=== PATIENT | male | born 1940 | race Caucasian/White ===

== ENCOUNTER 2018-05-22 15:24 | Inpatient (IN) | payer MEDICARE, OTHER, SELFPAY ==
[2018-05-22] VITALS (11 sets, daily range): BP systolic 116–136; BP diastolic 53–99; PULSE 62–111; RESP 15–18; TEMP 36.7; O2SAT 95–98; BMI 28.3; BMI 27.1
--- NOTE | 2018-05-22 15:34 | EKG12_ITS ---
Test Reason : SYNCOPE Blood Pressure : / mmHG Vent. Rate : 108 BPM Atrial Rate : 108 BPM P-R Int : 000 ms QRS Dur : 094 ms QT Int : 320 ms P-R-T Axes : 000 -32 007 degrees QTc Int : 428 ms Accelerated Junctional rhythm with retrograde conduction Left axis deviation Minimal voltage criteria for LVH, may be normal variant Abnormal ECG Confirmed by ZULEIMA AMEZQUITA, SAKINA ([id number]), international editorial producer ANNALISE ESCALANTE ([id number]) on 05/28/2018 11:12:23 AM Referred By: CHLOE Confirmed By:SAKINA DEWEY MD
--- NOTE | 2018-05-22 15:37 | CT_ITS ---
STUDY: CT BRAIN WITHOUT CONTRAST REASON FOR EXAM: Male, 77 years old. Syncope RADIATION DOSAGE (If Supplied By Facility): CTDIvol = ( 44.99 ) mGy, DLP = ( 796.11 ) mGycm TECHNIQUE: Transaxial CT imaging of the brain was performed without administration of intravenous contrast material. Individualized dose optimization techniques were used for this CT. COMPARISON: None. FINDINGS: Normal soft tissue structures. Normal calvarium. Normal size ventricles and extra-axial spaces for the patient's age. Normal white matter tracts of the cerebral hemispheres. Normal basal ganglia and thalami. Normal brainstem. Normal cerebellum. There is no intracranial hemorrhage. There are no findings of an acute ischemic infarction. There is a polypoid defect of the left maxillary sinus. CT/Brain/Head without Contrast IMPRESSION: Polypoid defect of the left maxillary sinus consistent with a mucoid retention cyst. There is no evidence of intracranial hemorrhage, acute infarct, or calvarial fracture. Electronically Signed: Hardeep Hughes MD at 17:21 EST , Service support ,
--- NOTE | 2018-05-22 15:40 | ED.DCSUM_ITS ---
- ER Visit Summary Date of Service: 05/22/18 Chief Complaint: Syncope History of Present Illness: The patient is a 77 M presenting after syncopal episode. Patient denies chest pain or shortness of breath. He states he ate lunch and then became lightheaded. He had a syncopal episode. He did hit his head. He is not on anticoagulants. He was able to get up after the fall and ambulate. was concerned about rapid pulse. Denies other complaints. Physical Examination: Vitals are stable. HR 111. Patient is afebrile. Alert no acute distress. HEENT exam is unremarkable. Neck is nontender Lungs are clear and equal bilaterally. Heart is regular and tachycardic Abdomen is soft nontender nondistended. Extremities are unremarkable. Skin is warm and dry. No focal neurologic deficit. Remainder of exam is unremarkable. Emergency Department Course and Treatment: EKG is junctional tachycardia rate of 108. Chest x-ray shows no acute process. CT head shows no acute process. CBC, chemistries unremarkable other than BUN 29. Troponin is negative. Patient feels back to baseline. Will discuss with hospitalist for observation. Disposition: Observation Impression: Syncopal episode This note was generated with Verast[employer] dictation software. It may contain incorrect words, spelling, and punctuation that were not noted in review of the chart prior to signing ED Disposition - Plan for ED Patient: Referrals: Jeremiah Savage MD [Primary Care Provider] -
[2018-05-22 16:07] LABS: Absolute Lymphocyte Count 0.73 X10^3/ul (0.83-4.51); Absolute Neutrophil Count 5.2 X10^3/uL (2.0-7.7); Basophil# 0.02 X10^3/uL; Basophil% 0.3 % (0-1); Eosinophil# 0.05 X10^3/uL; Eosinophils% 0.8 % (0-5); Hematocrit 48.7 % (40-54); Hemoglobin 15.9 g/dl (13.0-16.5); Lymphocyte # 0.73 X10^3/ul (4.0); Lymphocyte % 11.2 % (19-41); Mean Corp Hgb Conc 32.6 g/gl (32-36); Mean Corpuscular Volume 85.7 fL (80-94); Mean Platelet Vol. 10.6 fl (6.2-12.0); Monocyte# 0.57 X10^3/uL; Monocyte% 8.7 % (0-10); Neutrophil # 5.15 X10^3/uL (2.7-7.7); Neutrophil % 78.7 % (47-70); Platelet Count 190 K/mm3 (150-450); RBC Distribution Width CV 13.7 % (11.6-14.6); RBC Distribution Width SD 42.9 fl (35.1-43.9); Red Blood Count 5.68 M/mm3 (4.6-6.2); White Blood Count 6.5 K/mm3 (4.4-11.0)
[2018-05-22 16:08] LABS: POSITIVE COUNT NO; POSITIVE DIFFERENTIAL NO; POSITIVE MORPHOLOGY NO
[2018-05-22 16:22] LABS: Anion Gap 10 (5-15); BUN 29 mg/dL (7-18); BUN/Creat Ratio 23.6 RATIO (10-20); Calcium,Total 9.1 mg/dL (8.5-10.1); Chloride 111 mmol/L (98-107); Creatinine, Serum 1.23 mg/dL (0.70-1.30); EST Glomerular Filtration Rate 60 mL/min (>60); Est Glom Filt Rate - Afr Amer 73 mL/min (>60); Glucose 107 mg/dL (74-106); Potassium 4.6 mmol/L (3.5-5.1); Sodium Level 145 mmol/L (136-145)
--- NOTE | 2018-05-22 17:00 | RAD_ITS ---
STUDY: X-RAY CHEST REASON FOR EXAM: Male, 77 years old. Syncopal episode TECHNIQUE: PA and lateral views of the chest. COMPARISON: None. FINDINGS: media monitor leads are present. The lungs are clear and expanded. There is no demonstrated pleural abnormality. Normal size heart. Normal mediastinum and noah. Normal visualized pulmonary arteries. Normal visualized aortic arch and descending thoracic aorta. There are diffuse degenerative changes of the visualized thoracic spine. Normal visualized ribs, clavicles, and shoulders. There is no demonstrated abnormality of the visualized soft tissue structures of the upper abdomen. RAD/Chest PA and Lateral IMPRESSION: Degenerative changes of the thoracic spine. No acute cardiopulmonary disease process is seen. Electronically Signed: Hardeep Hughes MD at 17:26 EST , Service support ,
--- NOTE | 2018-05-22 19:37 | HP.PCM_ITS ---
Problem List (1) Syncope and collapse Status: Acute (2) Hypertension Status: Chronic (3) Bronchitis Status: Resolved (4) Sinusitis Status: Resolved History of Present Illness Date of Admission: 05/22/18 Chief Complaint: Passed out today The patient is a 77 year old M fairly healthy gentleman with history of hypertension and dyslipidemia came to ED for syncope. 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 After lunch, he took a nap and then woke up. [place] funny, dizzy and lightheaded and then passed out and collapsed. Patient denies prodromal symptoms of headache, missed heartbeat, arrhythmia/chest pressure or shortness of breath, involuntary movements or seizure-like movement. Denies urinary or fecal incontinence. Syncope was unwitnessed and exact duration unknown. In ED, patient is asymptomatic. Basic workup done in ED is unremarkable. Vital signs are not baseline. EKG shows accelerated junctional rhythm at 108 bpm, LAD, mild LVH with retrograde P waves. CT head and chest x-ray does not show any acute change. [] Past Medical History Past Medical History (Chronic Problems): Chronic Problems (Last Updated 04/11/17 @ 11:30 by Michelle Townsend) Hypertension (Chronic) Medical History: Medical History (Last Updated 04/11/17 @ 11:30 by Michelle Townsend) Diabetes E11.9 Hx of fever Z87.898 HTN (hypertension) I10 Allergies No Known Allergies Allergy (Verified 05/22/18 15:28) Home Medications: Ambulatory Orders Medication Instructions Recorded aspirin 81 mg tablet,delayed 81 mg PO DAILY 04/11/17 release lisinopril 10 mg tablet 10 mg PO DAILY 04/11/17 hzwtefay-lhh-okqsc acid 300 1 tab PO DAILY 04/11/17 mcg-lycopene 600 mcg-lutein 300 mcg tablet Simvastatin 40 mg PO DAILY 05/22/18 Surgical History: Surgical History (Last Updated 04/11/17 @ 11:30 by Michelle Townsend) Hx of cholecystectomy Z98.890, Z90.49 Smoking Status: Never smoker - *Family History Paternal Family History: Family History (Last Updated 04/11/17 @ 11:30 by Michelle Townsend) Mother Diabetes CVA (cerebral vascular accident) Father Diabetes Heart disease History Items: No pertinent history Review of Systems Constitutional: Denies: Chills, Fever, Weight Change HEENT: Denies: Head Aches, Sinus Congestion, Sinus Drainage Cardiovascular: Reports: Syncope. Denies: Chest Pain, Palpitations Respiratory: Reports: - - Had flulike symptoms, sinus congestion about 3 weeks ago. Currently asymptomatic.. Denies: Cough, Shortness of breath at rest, Sputum production Gastrointestinal: Denies: Abdominal Pain, Nausea, Vomiting Genitourinary: Denies: Dysuria Musculoskeletal: Denies: Joint Pain, Joint Tenderness Skin: Denies: Rash, Wounds Neurological: Denies: Numbness, Tingling, Focal weakness Psychiatric: Denies: Anxiety, Depression, Homicidal Ideations, Suicidal Ideations Hematologic/ Lymphatic: Denies: Easy Bruising, Easy Bleeding VTE Information - Inpt Only VTE Present on Admission: No VTE Mechan Device Prophylaxis: None VTE Pharm Prophylaxis ordered?: Yes Patient Problems: Active and Suspected Problems (Last Updated 04/11/17 @ 11:30 by Michelle Townsend) Syncope and collapse (Acute) - Physical Exam General: Alert, Oriented x3, Cooperative HEENT: Atraumatic, PERRLA, EOMI, Normocephalic Oral: Dry Mucosa Neck: Supple, No JVD, Negative Carotid Bruits Lungs: Clear to auscultation, Normal air movement, No rhonchi, No wheeze, No rales Cardiovascular: Regular rate, Regular Rhythm, Normal S1, Normal S2, No murmurs Abdomen: Bowel Sounds Present, Soft, Non Tender, Non-Distended Extremities: No edema, Capillary Refill Less than 3 Seconds Skin: No rashes, No breakdown Musculoskeletal: No Tenderness to Palpation of Joints or Extremities, Arthritic Changes Lymphatic: No Cervical, Supraclavicular, or Inguinal Adenopathy Neurological: Cranial nerves II-XII grossly intact, Deep Tendon Reflexes 2+/4 and Symmetrical, Neuro grossly intact, Motor Exam 5/5 strength throughout Psych/Mental Status: Normal Affect, Appropriate Vital Signs Temp Pulse Resp BP Pulse Ox 98.1 F 63 16 122/72 H 96 05/22/18 15:25 05/22/18 19:00 05/22/18 19:00 05/22/18 19:00 05/22/18 19:27 Oxygen Delivery Method Room Air Weight: 191 lb 9.307 oz Body Mass Index (BMI) 28.3 Laboratory Tests Past 24 Hrs 05/22/18 05/22/18 16:00 16:00 WBC 6.5 RBC 5.68 Hgb 15.9 Hct 48.7 MCV 85.7 MCH 28.0 MCHC 32.6 RDW 13.7 RDW Differential 42.9 Plt Count 190 MPV 10.6 Immature Gran % (Auto) 0.300 Neut % (Auto) 78.7 H Lymph % (Auto) 11.2 L Potter % (Auto) 8.7 Eos % (Auto) 0.8 Baso % (Auto) 0.3 Absolute Neuts (auto) 5.2 Absolute Lymphs (auto) 0.73 L Total Counted Not Reportable Sodium 145 Potassium 4.6 Chloride 111 H Carbon Dioxide 24.0 Anion Gap 10 BUN 29 H Creatinine 1.23 Estim Creat Clear Calc 49.50 Est GFR (MDRD) Af Amer 73 Est GFR (MDRD) Non-Af 60 BUN/Creatinine Ratio 23.6 H Glucose 107 H Calcium 9.1 Troponin I < 0.015 Assessment/Plan All Active Problems (Last Updated 04/11/17 @ 11:30 by Michelle Townsend) Syncope and collapse (Acute) Bronchitis (Resolved) Sinusitis (Resolved) The patient is a 77 year old M fairly healthy gentleman with history of hypertension and dyslipidemia came to ED for syncope. 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 After lunch, he took a nap and then woke up. [place] funny, dizzy and lightheaded and then passed out and collapsed. Patient denies prodromal symptoms of headache, missed heartbeat, arrhythmia/chest pressure or shortness of breath, involuntary movements or seizure-like movement. Denies urinary or fecal incontinence. Syncope was unwitnessed and exact duration unknown. In ED, patient is asymptomatic. Basic workup done in ED is unremarkable. Vital signs are not baseline. EKG shows accelerated junctional rhythm at 108 bpm, LAD, mild LVH with retrograde P waves. CT head and chest x-ray does not show any acute change. 1. Syncope and collapse, exact etiology unclear but possible hypotension/vasov agal syncope: Patient is being admitted on PCU. Cardiac monitoring. Cycle troponins. Repeat EKG after 3 hours. 2D echo and carotid Doppler tomorrow morning. Orthostatic blood pressure. IV fluid normal saline at 100 mL/h. Patient denies cardiac history including coronary artery disease, arrhythmia, CHF or significant valvular heart disease. Denies neurological disease including seizure or migraine. 2. Hypertension: Blood pressure is controlled continue lisinopril. If patient has positive orthostatics, discontinue lisinopril. 3. Dyslipidemia: Continue home medication. 4. DVT prophylaxis: On Lovenox 40 g subcu daily. Clinical Impression(s) from Imaging Studies Brain CT 05/22/18 15:37 IMPRESSION: Polypoid defect of the left maxillary sinus consistent with a mucoid retention cyst. There is no evidence of intracranial hemorrhage, acute infarct, or calvarial fracture. Chest X-Ray 05/22/18 17:00 IMPRESSION: Degenerative changes of the thoracic spine. No acute cardiopulmonary disease process is seen. Code Visit OBSV E&M: 58457 Initial observation care L3
[2018-05-22] MEDS: 0.9% Normal Saline 1,000 ML 100 ML IV (20:58)
[2018-05-22] MEDS: Atorvastatin Calcium 20 MG Tablet PO (21:58)
--- NOTE | 2018-05-22 22:00 | EKG12_ITS ---
Test Reason : ADMIT Blood Pressure : / mmHG Vent. Rate : 067 BPM Atrial Rate : 067 BPM P-R Int : 286 ms QRS Dur : 098 ms QT Int : 414 ms P-R-T Axes : 028 -35 002 degrees QTc Int : 437 ms Sinus rhythm with 1st degree A-V block Left axis deviation Moderate voltage criteria for LVH, may be normal variant Abnormal ECG When compared with ECG of 22-MAY-2018 15:32, MANUAL COMPARISON REQUIRED, DATA IS UNCONFIRMED Confirmed by ZULEIMA AMEZQUITA, SAKINA ([id number]), editor in chief ANNALISE ESCALANTE ([id number]) on 05/24/2018 9:17:06 AM Referred By: ISHA Confirmed By:SAKINA DEWEY MD
[2018-05-23] VITALS (13 sets, daily range): BP systolic 113–153; BP diastolic 52–76; PULSE 50–65; RESP 16–20; TEMP 36.5–37.2; O2SAT 96–97
[2018-05-23] MEDS: Enoxaparin 40 MG/0.4 ML Syringe SC (05:55)
--- NOTE | 2018-05-23 05:55 | ECHOCS_ITS ---
Reason For Study: Syncope Procedure This was a 2D Doppler, Color Flow transthoracic echocardiogram. Exam performed portable in patient room. Left Ventricle Normal size and thickness. The estimated ejection fraction is 65 %. Stage 1 diastolic dysfunction. No regional wall motion abnormalities noted. Right Ventricle Normal size and thickness. Normal systolic function. Atria Normal left atrium. Normal right atrium. Normal atrial septum. Mitral Valve The mitral valve is structurally normal. No prolapse or stenosis seen. Tricuspid Valve Normal tricuspid valve. Trivial tricuspid valve insufficiency. Right ventricular systolic pressure estimated to be 24 mmHg. Aortic Valve Trisinus/trileaflet aortic valve. Normal aortic valve. Pulmonic Valve Normal pulmonic valve. Great Vessels Normal aortic root. Normal arch. Normal inferior vena cava. Inferior vena cava collapse with sniff. Pericardium/Pleural No pericardial effusion. Medication Diluted definity 2ml given slow IV push to enhance endocardial definition. MMode/2D Measurements & Calculations LVIDd: 4.1 cm IVSd: 1.7 cm Ao root diam: 4.0 cm LVIDs: 2.2 cm LVPWd: 1.2 cm LA dimension: 3.7 cm FS: 47.7 % LAV(MOD-sp4): 45.0 ml LA A4 area: 17.7 cm2 RA A4 area: 11.5 cm2 Time Measurements MV dec time: 0.33 sec Doppler Measurements & Calculations MV E max dylan: 80.1 cm/sec Lat Peak E' Dylan: 8.3 cm/sec Med Peak E' Dylan: 5.7 cm/sec MV A max dylan: 106.0 cm/sec E/E' lat: 9.6 E/E' med: 14.1 MV E/A: 0.76 MV V2 max: 111.7 cm/sec MV P1/2t max dylan: 94.4 cm/sec Ao V2 max: 132.9 cm/sec MV max P.0 mmHg MV P1/2t: 81.4 msec Ao max P.1 mmHg MV V2 mean: 67.1 cm/sec MV dec slope: 339.8 cm/sec2 MV mean P.0 mmHg MV V2 VTI: 33.8 cm MVA(P1/2t): 2.7 cm2 LV V1 max: 111.8 cm/sec PA V2 max: 104.0 cm/sec TR max dylan: 220.0 cm/sec LV V1 max P.0 mmHg TR max P.4 mmHg Interpretation Summary The estimated ejection fraction is 65 %. Stage 1 diastolic dysfunction. Trivial tricuspid valve insufficiency. Right ventricular systolic pressure estimated to be 24 mmHg. There is no comparison study available. The study was technically difficult. Contrast injection was performed. Ordering Physician: Austin Acosta Performed By: Kai Ray RCS
--- NOTE | 2018-05-23 05:55 | CDU_ITS ---
Reason For Study: syncope Rt. Velocities/BP Lt. Velocities/BP Prox CCA 84.4/14.1 cm/sec. Prox CCA 114/21.2 cm/sec. Mid CCA 99.7/14.1 cm/sec. Mid CCA 104/20.4 cm/sec. Dist CCA 87.9/14.7 cm/sec. Dist CCA 96.6/17.3 cm/sec. Prox ICA 91.9/16.5 cm/sec. Prox ICA 78.6/20.4 cm/sec. Mid ICA 86.4/21.2 cm/sec. Mid ICA 88.0/24.4 cm/sec. Dist ICA 90.4/22.8 cm/sec. Dist ICA 120/29.9 cm/sec. Rt. ICA/CCA = .9. Lt. ICA/CCA = 1.2. Prox ECA 151/15.7 cm/sec. Prox ECA 123/10.2 cm/sec. Rt. Vert. 50.4/8.21 cm/sec. Lt. Vert. 51.6/13.5 cm/sec. Right Extracranial There is intimal thickening but no significant atherosclerotic plaque noted in the right common carotid artery. There is homogeneous, smooth atherosclerotic plaque noted in the right internal carotid artery. There is intimal thickening but no significant atherosclerotic plaque noted in the right external carotid artery. Antegrade flow is noted in the right vertebral artery. Left Extracranial There is intimal thickening but no significant atherosclerotic plaque noted in the left common carotid artery. There is intimal thickening but no significant atherosclerotic plaque noted in the left internal carotid artery. The left internal carotid artery is very tortuous. There is intimal thickening but no significant atherosclerotic plaque noted in the left external carotid artery. Antegrade flow is noted in the left vertebral artery. Procedure Carotid Duplex 09043. The exam was diagnostic. Exam performed in department. Interpretation Summary No hemodynamically significant plague or stenosis bilateral extracranial internal carotid arteries with <50% stenosis bilaterally. <50% stenosis bilateral external carotids Patent and antegrade bilateral vertebrals Ordering Physician: Austin Acosta Referring Physician: MD Jeremiah Savage Performed By: Anibal Hood RVT
[2018-05-23] MEDS: 0.9% Normal Saline 1,000 ML 100 ML IV (05:57)
[2018-05-23 06:32] LABS: Thyroid Stim Hormone (TSH) 2.22 uIU/mL (0.358-3.74)
--- NOTE | 2018-05-23 08:34 | PCM.PROGNOTE ---
Subjective: The patient is a 77-year-old male with a past medical history of hypertension, diet-controlled diabetes mellitus type 2 and dyslipidemia who presented to the emergency department at [facility] on 05/22/2018 after having a unwitnessed syncopal episode. He stood up and started to feel lightheaded and then vision got blurry and he passed out. When he awoke he was alert and felt fine....his made him come to the hospital. He is still working at the age of 77. Vital signs of presentation to the emergency room were temperature 98.1, pulse rate 111, blood pressure 134/76, respiratory rate 16 and he was 97% saturated on room air. CBC was unremarkable. Sodium was 145 and the chloride was 111. The BUN was 29 with a creatinine of 1.23 and we have no baseline on this gentleman. Troponin was less than 0.015. Magnesium was normal at 2. EKG at admission showed accelerated junctional rhythm with no suspicious ST or T wave changes. Follow-up EKG shows P waves however the WV interval is almost 450 ms. Pulse is now in the 60s. CT brain showed no acute findings. Chest x-ray showed no infiltrates, pleural effusions or pulmonary vascular congestion. He was admitted to a monitored bed on PCU and serial cardiac enzymes were obtained and were not negative. A surface echocardiogram was obtained and showed an ejection fraction of 65% with stage I diastolic dysfunction. There was trivial TR and the right ventricular systolic pressure was estimated to be 24 which is normal. All events of the past 24 hours of been reviewed. Heart rate has ranged from 60 currently to 111 at admission. Pulse ox is 95-97% on room air and blood pressures are stable. All lab was personally reviewed. The TSH is 2.22. He is on no medications that would cause a heart block Denies lightheadedness, chest pain, shortness of breath. He does tell me that in the summer he gets lightheaded and he attributes this to dehydration. This is his first syncopal episode. He has never had a stress test but there is a very strong history of coronary artery disease in the family. - Physical Exam General: Alert, Oriented x3, Cooperative, No apparent distress, Well developed, Well nourished HEENT: Atraumatic, PERRLA, EOMI, Normocephalic Oral: Moist Mucosa, No Gingival or Mucosal Lesions/ Ulcerations Neck: Supple, No JVD, Negative Carotid Bruits, No Nodes, No Nuchal Rigidity, Trachea Midline Lungs: Clear to auscultation, Normal air movement Cardiovascular: Regular rate, Regular Rhythm, Normal S1, Normal S2, No murmurs, No Ectopic Activity, No rub noted, No Gallop Abdomen: Bowel Sounds Present, Soft, Non Tender, Non-Distended, - - No abdominal bruits Extremities: No clubbing, No cyanosis, No edema, No Calf Tenderness, - - Dorsalis pedis pulses are diminished bilaterally but the posterior tibial pulses are 3/3. Popliteal pulses are 3/3. Skin: No rashes, No breakdown Neurological: Cranial nerves II-XII grossly intact, Neuro grossly intact Psych/Mental Status: Normal Affect, Appropriate Vital Signs Temp Pulse Resp BP Pulse Ox 97.7 F L 60 18 131/62 H 96 05/23/18 05:46 05/23/18 07:11 05/23/18 05:46 05/23/18 05:49 05/23/18 05:46 Oxygen Delivery Method Room Air Weight: 189 lb Body Mass Index (BMI) 27.1 Orthostatic Vital Signs Start: 05/22/18 22:33 Freq: q24h Status: Active Protocol: Activity Type Activity Date Activity User E-Sign Co-Sign Detail Recorded Client Recorded Date Recorded By Document 05/23/18 05:49 [id number] 05/23/18 05:55 JM8 05/23/18 05:49 Orthostatic Vitals Standing -Blood Pressure (90/60-120/80 mm Hg) 121/52 H -Extremity Use Right Arm -Pulse Rate (60-100 beats/min) 57 L Sitting -Blood Pressure (90/60-120/80 mm Hg) 128/62 H -Extremity Use Right Arm -Pulse Rate (60-100 beats/min) 65 Lying -Blood Pressure (90/60-120/80 mm Hg) 131/62 H -Extremity Use Right Arm -Pulse Rate (60-100 beats/min) 62 Intake and Output for Last 24 Hours 05/21/18 05/22/18 05/23/18 23:59 23:59 23:59 Intake Total 371 / 371 855 / 855 Balance 371 / 371 855 / 855 Laboratory Tests Past 24 Hrs 05/22/18 05/22/18 05/22/18 16:00 16:00 16:00 WBC 6.5 RBC 5.68 Hgb 15.9 Hct 48.7 MCV 85.7 MCH 28.0 MCHC 32.6 RDW 13.7 RDW Differential 42.9 Plt Count 190 MPV 10.6 Immature Gran % (Auto) 0.300 Neut % (Auto) 78.7 H Lymph % (Auto) 11.2 L Glenn % (Auto) 8.7 Eos % (Auto) 0.8 Baso % (Auto) 0.3 Absolute Neuts (auto) 5.2 Absolute Lymphs (auto) 0.73 L Total Counted Not Reportable Sodium 145 Potassium 4.6 Chloride 111 H Carbon Dioxide 24.0 Anion Gap 10 BUN 29 H Creatinine 1.23 Estim Creat Clear Calc 49.50 Est GFR (MDRD) Af Amer 73 Est GFR (MDRD) Non-Af 60 BUN/Creatinine Ratio 23.6 H Glucose 107 H Calcium 9.1 Magnesium 2.0 Troponin I < 0.015 TSH 05/23/18 05/23/18 03:10 05:45 WBC RBC Hgb Hct MCV MCH MCHC RDW RDW Differential Plt Count MPV Immature Gran % (Auto) Neut % (Auto) Lymph % (Auto) Glenn % (Auto) Eos % (Auto) Baso % (Auto) Absolute Neuts (auto) Absolute Lymphs (auto) Total Counted Sodium Potassium Chloride Carbon Dioxide Anion Gap BUN Creatinine Estim Creat Clear Calc Est GFR (MDRD) Af Amer Est GFR (MDRD) Non-Af BUN/Creatinine Ratio Glucose Calcium Magnesium Troponin I 0.018 < 0.015 TSH 2.22 Medical Necessity - Tobacco Use Smoking Status: Never smoker Assessment/Plan All Active Problems (Last Updated 04/11/17 @ 11:30 by Michelle Townsend) First degree AV block (Acute) Accelerated junctional rhythm (Acute) Syncope and collapse (Acute) Bronchitis (Resolved) Sinusitis (Resolved) Impressions 1. syncope - unwitnessed 2. accelerated junctional rhythm, first-degree AV block 3. Hypertension 4. Diet-controlled diabetes mellitus 5. Dyslipidemia-controlled 6. Stage III chronic renal failure 7. Stage I diastolic dysfunction Consult Dr. Garcia Lipid panel, CMP in the a.m. Stress test in the a.m. Code Visit Inpatient E&M: 61159 Subs Hosp L2
[2018-05-23] MEDS: Aspirin E.C. 81 MG Tablet PO (08:49)
[2018-05-23] MEDS: Lisinopril 10 MG Tablet PO (08:49)
[2018-05-23] MEDS: Multivitamins,Ther W-Minerals Tablet 1 TABLET PO (08:49)
--- NOTE | 2018-05-23 09:29 | CASEMGMT ---
Per admission assessment patient has Healthcare POA and Healthcare LW. He is aware they are not on file at [facility]. His Healthcare POA is his Suzanne. Gabrielle RAO MSW
--- NOTE | 2018-05-23 11:06 | EKGRS_ITS ---
Test Reason : RHYTHM Blood Pressure : / mmHG Vent. Rate : 059 BPM Atrial Rate : 059 BPM P-R Int : 434 ms QRS Dur : 096 ms QT Int : 430 ms P-R-T Axes : 023 -36 -10 degrees QTc Int : 425 ms Sinus bradycardia with 1st degree A-V block Left axis deviation Voltage criteria for left ventricular hypertrophy Abnormal ECG Confirmed by ZULEIMA AMEZQUITA, SAKINA ([id number]), marketing editor ANNALISE ESCALANTE ([id number]) on 05/24/2018 9:51:28 AM Referred By: ISHA Confirmed By:SAKINA DEWEY MD
--- NOTE | 2018-05-23 11:07 | NURSING ---
Respiratory therapist called at this time and notified of need for an EKG
--- NOTE | 2018-05-23 12:53 | PCM.CONS.C ---
Reason for Consult Date of Consultation: 05/23/18 Reason for Consultation: Syncopal episode History of Present Illness: The patient is a 77 year old M [with no previous cardiac history who presented to the emergency room yesterday after experiencing a syncopal episode. He thinks that he had had an average sort of day and then had an episode where he thought his heart was racing briefly he got up and then he passed out. It was apparently transient. He was brought to the emergency room and evaluated. In the emergency room he was noted to be in an accelerated junctional rhythm with a rate of approximately 108 bpm with what appeared to be retrograde conduction. A subsequent EKG performed demonstrated sinus rhythm with a first-degree AV block with a rate of 67 bpm and a WA interval of 286 ms. An echocardiogram was performed which demonstrated preserved ejection fraction of 65%. A subsequent EKG performed this morning demonstrated sinus rhythm with a rate of 59 bpm and a first-degree AV block with a WA interval of 430 ms. He says that he has had periods of dizziness in the past but no german syncopal episodes. He has had no neck arm or jaw discomfort suggest angina. He has been compliant with all his medications.] Past Medical History Allergies/Adverse Reactions: Allergies No Known Allergies Allergy (Verified 05/22/18 15:28) Home Medications: Ambulatory Orders Medication Instructions Recorded aspirin 81 mg tablet,delayed 81 mg PO DAILY 04/11/17 release lisinopril 10 mg tablet 10 mg PO DAILY 04/11/17 vfunzxqv-ugt-lfims acid 300 1 tab PO DAILY 04/11/17 mcg-lycopene 600 mcg-lutein 300 mcg tablet Simvastatin 40 mg PO DAILY 05/22/18 Past Medical History (Chronic Problems): Chronic Problems (Last Updated 04/11/17 @ 11:30 by Michelle Townsend) Hypertension (Chronic) - *Family History Paternal Family History: Family History (Last Updated 04/11/17 @ 11:30 by Michelle Townsend) Mother Diabetes CVA (cerebral vascular accident) Father Diabetes Heart disease History Items: No pertinent history Smoking Status: Never smoker Alcohol: None Drugs: None Review of Systems - Review of Systems General: Denies: Fever, Night Sweats, Fatigue HEENT: Denies: Vision Change Cardiovascular: Reports: Dizziness, Near Syncope, Syncope. Denies: Chest Discomfort, Shortness of Breath, Orthopnea, PND, Peripheral Edema, Palpitations, Lightheadedness Respiratory: Denies: Cough, Sputum Production, Hemoptysis Gastrointestinal: Denies: Indigestion, Hematemesis, Hematochezia, Melena Genitourinary: Denies: Dysuria, Hematuria Muscoloskeletal: Denies: Myalgias Skin: Denies: Rash Neurological: Denies: Dizziness Psychiatric: Denies: Anxiety Endocrine: Denies: Excessive Sweating Hematologic/ Lymphatic: Denies: Anemia Subjectve: Pleasant gentleman in no apparent distress Objective: Vital Signs Temp Pulse Resp BP Pulse Ox 98.6 F 60 16 126/76 H 96 05/23/18 09:15 05/23/18 10:58 05/23/18 09:15 05/23/18 09:15 05/23/18 09:15 Oxygen Delivery Method Room Air Weight: 189 lb Body Mass Index (BMI) 27.1 Orthostatic Vital Signs Start: 05/22/18 22:33 Freq: q24h Status: Active Protocol: Activity Type Activity Date Activity User E-Sign Co-Sign Detail Recorded Client Recorded Date Recorded By Document 05/23/18 05:49 [id number] 05/23/18 05:55 [email or web address] 05/23/18 05:49 Orthostatic Vitals Standing -Blood Pressure (90/60-120/80) 121/52 H -Extremity Use Right Arm -Pulse Rate (60-100) 57 L Sitting -Blood Pressure (90/60-120/80) 128/62 H -Extremity Use Right Arm -Pulse Rate (60-100) 65 Lying -Blood Pressure (90/60-120/80) 131/62 H -Extremity Use Right Arm -Pulse Rate (60-100) 62 Intake and Output for Last 24 Hours 05/21/18 05/22/18 05/23/18 23:59 23:59 23:59 Intake Total 371 / 371 2000 Balance 371 / 371 2000 General: Awake, Alert, Oriented x 3 HEENT: PERRL, EOMI, Sclera Non Icteric Neck: Supple, Good ROM, No Lymph Node Enlargement Lungs: Clear to auscultation Cardiovascular: Regular Rhythm, Normal S1, Normal S2, No Murmurs, No Rubs, No Gallops Vascular: No Carotid Bruits, Normal Femoral Pulses, Normal Radial Pulses, Normal Dorsalis Pedal Pulse, Normal Posterior Tibial Pulses Abdomen: Bowel Sounds Present, Soft, Non Tender, No HSM, No Organomegaly Extremities: No Cyanosis, No Clubbing, No edema Musculoskeletal: No Erythema Skin: No Rashes Neurological: No Focal Motor or Sensory Deficit Psych/Mental Status: Appropriate 05/22/18 16:00: WBC 6.5, RBC 5.68, Hgb 15.9, Hct 48.7, MCV 85.7, MCH 28.0, MCHC 32.6, RDW 13.7, RDW Differential 42.9, Plt Count 190, MPV 10.6, Immature Gran % (Auto) 0.300, Neut % (Auto) 78.7 H, Lymph % (Auto) 11.2 L, [place] % (Auto) 8.7, Eos % (Auto) 0.8, Baso % (Auto) 0.3, Absolute Neuts (auto) 5.2, Total Counted Not Reportable 05/22/18 16:00: Sodium 145, Potassium 4.6, Chloride 111 H, Carbon Dioxide 24.0, Anion Gap 10, BUN 29 H, Creatinine 1.23, Est GFR (MDRD) Af Amer 73, Est GFR (MDRD) Non-Af 60, BUN/Creatinine Ratio 23.6 H, Glucose 107 H, Calcium 9.1, Troponin I < 0.015 05/22/18 16:00: Magnesium 2.0 05/23/18 03:10: Troponin I 0.018 05/23/18 05:45: Troponin I < 0.015 Rhythm: EKG: As described above ECHO: Preserved left ventricular ejection fraction estimated 65% Assessment/Plan 1. Syncope The etiology of the above is unclear to me at this time but it appears that he may have a sick sinus syndrome. I do not think this is secondary to medication or an electrolyte problem. My recommendation at this time will be for us to continue to monitor him via telemetry and then obtain an exercise stress test to see what his conduction system is like. If the above is noted to be normal I may recommend an outpatient event monitor or even an implantable loop recorder. I have discussed the above with the patient and his and the physician and they understand and agreed to proceed. Further recommendations will be made depending on the results of tomorrow's stress test. Thank you for allowing me to participate in the care of your patient. Please don't hesitate to call if any issues arise
--- NOTE | 2018-05-23 12:57 | CON.PCM_ITS ---
Reason for Consult Date of Consultation: 05/23/18 Reason for Consultation: Syncopal episode History of Present Illness: The patient is a 77 year old M [with no previous cardiac history who presented to the emergency room yesterday after experiencing a syncopal episode. He thinks that he had had an average sort of day and then had an episode where he thought his heart was racing briefly he got up and then he passed out. It was apparently transient. He was brought to the emergency room and evaluated. In the emergency room he was noted to be in an accelerated junctional rhythm with a rate of approximately 108 bpm with what appeared to be retrograde conduction. A subsequent EKG performed demonstrated sinus rhythm with a first-degree AV block with a rate of 67 bpm and a SD interval of 286 ms. An echocardiogram was performed which demonstrated preserved ejection fraction of 65%. A subsequent EKG performed this morning demonstrated sinus rhythm with a rate of 59 bpm and a first-degree AV block with a SD interval of 430 ms. He says that he has had periods of dizziness in the past but no german syncopal episodes. He has had no neck arm or jaw discomfort suggest angina. He has been compliant with all his medications.] Past Medical History Allergies/Adverse Reactions: Allergies No Known Allergies Allergy (Verified 05/22/18 15:28) Home Medications: Ambulatory Orders Medication Instructions Recorded aspirin 81 mg tablet,delayed 81 mg PO DAILY 04/11/17 release lisinopril 10 mg tablet 10 mg PO DAILY 04/11/17 ccjpmetu-orc-cglpq acid 300 1 tab PO DAILY 04/11/17 mcg-lycopene 600 mcg-lutein 300 mcg tablet Simvastatin 40 mg PO DAILY 05/22/18 Past Medical History (Chronic Problems): Chronic Problems (Last Updated 04/11/17 @ 11:30 by Michelle Townsend) Hypertension (Chronic) - *Family History Paternal Family History: Family History (Last Updated 04/11/17 @ 11:30 by Michelle Townsend) Mother Diabetes CVA (cerebral vascular accident) Father Diabetes Heart disease History Items: No pertinent history Smoking Status: Never smoker Alcohol: None Drugs: None Review of Systems - Review of Systems General: Denies: Fever, Night Sweats, Fatigue HEENT: Denies: Vision Change Cardiovascular: Reports: Dizziness, Near Syncope, Syncope. Denies: Chest Discomfort, Shortness of Breath, Orthopnea, PND, Peripheral Edema, Palpitations, Lightheadedness Respiratory: Denies: Cough, Sputum Production, Hemoptysis Gastrointestinal: Denies: Indigestion, Hematemesis, Hematochezia, Melena Genitourinary: Denies: Dysuria, Hematuria Muscoloskeletal: Denies: Myalgias Skin: Denies: Rash Neurological: Denies: Dizziness Psychiatric: Denies: Anxiety Endocrine: Denies: Excessive Sweating Hematologic/ Lymphatic: Denies: Anemia Subjectve: Pleasant gentleman in no apparent distress Objective: Vital Signs Temp Pulse Resp BP Pulse Ox 98.6 F 60 16 126/76 H 96 05/23/18 09:15 05/23/18 10:58 05/23/18 09:15 05/23/18 09:15 05/23/18 09:15 Oxygen Delivery Method Room Air Weight: 189 lb Body Mass Index (BMI) 27.1 Orthostatic Vital Signs Start: 05/22/18 22:33 Freq: q24h Status: Active Protocol: Activity Type Activity Date Activity User E-Sign Co-Sign Detail Recorded Client Recorded Date Recorded By Document 05/23/18 05:49 [id number] 05/23/18 05:55 JM8 05/23/18 05:49 Orthostatic Vitals Standing -Blood Pressure (90/60-120/80) 121/52 H -Extremity Use Right Arm -Pulse Rate (60-100) 57 L Sitting -Blood Pressure (90/60-120/80) 128/62 H -Extremity Use Right Arm -Pulse Rate (60-100) 65 Lying -Blood Pressure (90/60-120/80) 131/62 H -Extremity Use Right Arm -Pulse Rate (60-100) 62 Intake and Output for Last 24 Hours 05/21/18 05/22/18 05/23/18 23:59 23:59 23:59 Intake Total 371 / 371 2000 Balance 371 / 371 2000 General: Awake, Alert, Oriented x 3 HEENT: PERRL, EOMI, Sclera Non Icteric Neck: Supple, Good ROM, No Lymph Node Enlargement Lungs: Clear to auscultation Cardiovascular: Regular Rhythm, Normal S1, Normal S2, No Murmurs, No Rubs, No Gallops Vascular: No Carotid Bruits, Normal Femoral Pulses, Normal Radial Pulses, Normal Dorsalis Pedal Pulse, Normal Posterior Tibial Pulses Abdomen: Bowel Sounds Present, Soft, Non Tender, No HSM, No Organomegaly Extremities: No Cyanosis, No Clubbing, No edema Musculoskeletal: No Erythema Skin: No Rashes Neurological: No Focal Motor or Sensory Deficit Psych/Mental Status: Appropriate 05/22/18 16:00: WBC 6.5, RBC 5.68, Hgb 15.9, Hct 48.7, MCV 85.7, MCH 28.0, MCHC 32.6, RDW 13.7, RDW Differential 42.9, Plt Count 190, MPV 10.6, Immature Gran % (Auto) 0.300, Neut % (Auto) 78.7 H, Lymph % (Auto) 11.2 L, [place] % (Auto) 8.7, Eos % (Auto) 0.8, Baso % (Auto) 0.3, Absolute Neuts (auto) 5.2, Total Counted Not Reportable 05/22/18 16:00: Sodium 145, Potassium 4.6, Chloride 111 H, Carbon Dioxide 24.0, Anion Gap 10, BUN 29 H, Creatinine 1.23, Est GFR (MDRD) Af Amer 73, Est GFR (MDRD) Non-Af 60, BUN/Creatinine Ratio 23.6 H, Glucose 107 H, Calcium 9.1, Troponin I < 0.015 05/22/18 16:00: Magnesium 2.0 05/23/18 03:10: Troponin I 0.018 05/23/18 05:45: Troponin I < 0.015 Rhythm: EKG: As described above ECHO: Preserved left ventricular ejection fraction estimated 65% Assessment/Plan * 1. Syncope The etiology of the above is unclear to me at this time but it appears that he may have a sick sinus syndrome. I do not think this is secondary to medication or an electrolyte problem. My recommendation at this time will be for us to continue to monitor him via telemetry and then obtain an exercise stress test to see what his conduction system is like. If the above is noted to be normal I may recommend an outpatient event monitor or even an implantable loop recorder. I have discussed the above with the patient and his and the physician and they understand and agreed to proceed. Further recommendations will be made depending on the results of tomorrow's stress test. Thank you for allowing me to participate in the care of your patient. Please don't hesitate to call if any issues arise
--- NOTE | 2018-05-23 14:04 | CASEMGMT ---
ROSY SPENCER assessment: Face to Face with patient for initial transition planning/care coordination assessment. ROSY SPENCER introduced self and role at [facility], pt voices understanding and consents to assessment at this time. Pt is sitting up in bed in no distress at this time. Pt is A/Ox4 at this time and answers all questions appropriately at this time. Pt's is at bedside during assessment. Care providers, pharmacy, and demographics verified/updated at this time. PCP: Janette Specialists: Pt states currently has no specialists. Preferred Pharmacy: [facility] [place] mail [facility] Insurance: MCR A/B, [employer] Prescription Benefit: [place] Living Will/HPOA: Pt states he has a LW/HPOA but is aware that they are not currently on file at [facility]. Pt's states that she will bring copies in later today. Pt states his , Suzanne Pink, is HPOA. LNOK: Suzanne Pink, ; Carroll Blount, daughter Living Arrangements: Pt states lives with in 1 story home and states no concerns at home at this time. Pt states is normally independent with ADL's. Transportation: Pt states drives self and states no transportation concerns at this time. DME/HHC: Pt states no current DME or need for any at this time. Pt states no hx of HHC or SNF in the past. Pt states no concerns with going home at time of discharge. Pt states is retired. Pt states does not smoke or drink ETOH. Pt states no further questions/concerns/needs at this time. CM to follow for any further discharge planning/needs. Advised pt to ask for CM if any further questions/concerns/needs arise, voices understanding. Plan: [place] ROSY SPENCER
[2018-05-23] MEDS: Atorvastatin Calcium 20 MG Tablet PO (20:57)
[2018-05-24] VITALS (7 sets, daily range): BP systolic 138–156; BP diastolic 63–84; PULSE 50–65; RESP 18; TEMP 36.7–36.8; O2SAT 96–99
[2018-05-24 04:59] LABS: Hematocrit 43.5 % (40-54); Hemoglobin 14.1 g/dl (13.0-16.5); Mean Corp Hgb Conc 32.4 g/gl (32-36); Mean Corpuscular Hgb 28.4 pg (27.0-32.0); Mean Corpuscular Volume 87.5 fL (80-94); Mean Platelet Vol. 10.3 fl (6.2-12.0); Platelet Count 156 K/mm3 (150-450); RBC Distribution Width CV 13.6 % (11.6-14.6); RBC Distribution Width SD 43.2 fl (35.1-43.9); Red Blood Count 4.97 M/mm3 (4.6-6.2); White Blood Count 4.2 K/mm3 (4.4-11.0)
[2018-05-24 05:00] LABS: Scan Indicated on CBC? Y/N NO
--- NOTE | 2018-05-24 05:00 | EKG12_ITS ---
Test Reason : AM EKG Blood Pressure : / mmHG Vent. Rate : 055 BPM Atrial Rate : 055 BPM P-R Int : 392 ms QRS Dur : 096 ms QT Int : 436 ms P-R-T Axes : 015 -33 -09 degrees QTc Int : 417 ms Sinus bradycardia with 1st degree A-V block Left axis deviation Minimal voltage criteria for LVH, may be normal variant Abnormal ECG When compared with ECG of 23-MAY-2018 11:15, MANUAL COMPARISON REQUIRED, DATA IS UNCONFIRMED Confirmed by ZULEIMA AMEZQUITA, SAKINA ([id number]), industrial editor ANNALISE ESCALANTE ([id number]) on 05/28/2018 11:45:15 AM Referred By: KIRSTIN Confirmed By:SAKINA DEWEY MD
[2018-05-24 05:05] LABS: International Normalized Ratio 1.1; Prothrombin Time (Protime)PT. 13.7 SECONDS (11.7-14.9)
[2018-05-24 05:06] LABS: Partial Thromboplast Time 26.9 Seconds (24.1-36.2)
[2018-05-24 05:25] LABS: ALB/GLOB Ratio 1.1 RATIO (0.9-2.4); AST(SGOT) 20 U/L (15-37); Alanine Aminotransfer ALT/SGPT 31 U/L (16-61); Albumin, Serum 3.2 g/dL (3.2-5.0); Alkaline Phosphatase 54 U/L (45-117); Anion Gap 7 (5-15); BUN 25 mg/dL (7-18); BUN/Creat Ratio 19.4 RATIO (10-20); Calcium,Total 8.4 mg/dL (8.5-10.1); Chloride 113 mmol/L (98-107); Cholesterol 120 mg/dL (200); Creatinine, Serum 1.29 mg/dL (0.70-1.30); EST Glomerular Filtration Rate 57 mL/min (>60); Est Glom Filt Rate - Afr Amer 69 mL/min (>60); Estimated Creatinine Clearance 48.73 ml/min; Glucose 103 mg/dL (74-106); High Density Lipoprotein 44 mg/dL; Potassium 4.5 mmol/L (3.5-5.1); Protein, Total 6.2 g/dL (6.4-8.2); Sodium Level 144 mmol/L (136-145); Triglycerides 69 mg/dL; Very Low Density Lipoprotein 14 mg/dL (5-40)
[2018-05-24] MEDS: Aspirin E.C. 81 MG Tablet PO (06:20)
[2018-05-24] MEDS: Lisinopril 10 MG Tablet PO (06:20)
--- NOTE | 2018-05-24 10:26 | STRESSREP ---
Stress Test Report Exercise myocardial perfusion stress test. 77-year-old man with a history of syncope. Stress protocol: Resting EKG demonstrates sinus bradycardia with a first-degree AV block rate of 57 bpm. Resting blood pressure 142/84 mmHg. The patient exercised according to the regular [place] protocol for total duration of 8 minutes and 46 seconds. The maximum heart rate attained was 148 bpm which was 104% of maximum predicted heart rate. The maximum workload was 10.1 metabolic equivalents. The patient maintained sinus rhythm throughout the exercise. With appropriate [place] intervals and increasing his heart rate appropriately. At peak exercise and early recovery patient appeared to have gone into a narrow complex tachycardia with a rate of approximately 142 bpm. Approximately 53 seconds into recovery the patient appeared to be in a junctional tachycardia with a rate of approximately 137 bpm. He was asymptomatic with this there were no EKG changes. Approximately 3 minutes into recovery the patient was asked to cough and this broke the rhythm and went back into a sinus rhythm with a rate of 74 bpm. The patient then developed a junctional rhythm at a rate of approximately 90 bpm which was also asymptomatic. The resting blood pressure 142/84 with a peak blood pressure of 200/90 mmHg. Myocardial perfusion protocol. 11.9 Millicuries of technetium 99m sestamibi was injected at rest. The patient then exercised according to regular [place] protocol for 8 minutes and 46 seconds. At peak exercise 36mci of technetium 99m sestamibi was injected stress images were obtained stress and rest images were reconstructed and compared in the short axis vertical long horizontal long axis. Gated images were also obtained Perfusion SPECT analysis: Review of the stress images demonstrate normal uptake of tracer noted in all areas of the myocardium. The resting images similarly demonstrate normal uptake of tracer noted in all areas of the myocardium. No areas of reversibility are noted suggest ischemia and no previous infarct is noted. Gated SPECT analysis: The gated ejection fraction is noted to be 61%. Conclusion: Exercise myocardial perfusion stress test with no evidence of ischemia. Periods of supraventricular tachyarrhythmia noted as well as junctional tachycardia noted. The above was asymptomatic and hemodynamically stable. Baseline first-degree AV block noted.
--- NOTE | 2018-05-24 10:34 | PN.CARD_ITS ---
Subjectve: Patient seen and evaluated. Appears to be doing well this morning. Objective: Vital Signs Temp Pulse Resp BP Pulse Ox 98.1 F 58 L 18 148/68 H 98 05/24/18 06:56 05/24/18 06:56 05/24/18 06:56 05/24/18 06:56 05/24/18 06:56 Oxygen Delivery Method Room Air Weight: 189 lb Body Mass Index (BMI) 27.1 Orthostatic Vital Signs Start: 05/22/18 22:33 Freq: q24h Status: Active Protocol: Activity Type Activity Date Activity User E-Sign Co-Sign Detail Recorded Client Recorded Date Recorded By Document 05/24/18 06:49 PAL [id number] 05/24/18 06:56 PAL 05/24/18 06:49 Orthostatic Vitals Standing -Blood Pressure (90/60-120/80 mm Hg) 154/76 H -Extremity Use Right Arm -Pulse Rate (60-100 beats/min) 62 Sitting -Blood Pressure (90/60-120/80 mm Hg) 151/71 H -Extremity Use Right Arm -Pulse Rate (60-100 beats/min) 58 L Lying -Blood Pressure (90/60-120/80 mm Hg) 148/68 H -Extremity Use Right Arm -Pulse Rate (60-100 beats/min) 58 L Intake and Output for Last 24 Hours 05/22/18 05/23/18 05/24/18 23:59 23:59 23:59 Intake Total 371 / 371 2741 / 2741 50 / 50 Balance 371 / 371 2741 / 2741 50 / 50 General: Awake, Alert, Oriented x 3 HEENT: PERRL, EOMI, Sclera Non Icteric Neck: Supple, Good ROM, No Lymph Node Enlargement Lungs: Clear to auscultation Cardiovascular: Regular Rhythm, Normal S1, Normal S2, No Murmurs, No Rubs, No Gallops Vascular: No Carotid Bruits, Normal Femoral Pulses, Normal Radial Pulses, Normal Dorsalis Pedal Pulse, Normal Posterior Tibial Pulses Abdomen: Bowel Sounds Present, Soft, Non Tender, No HSM, No Organomegaly Extremities: No Cyanosis, No Clubbing, No edema Musculoskeletal: No Erythema Skin: No Rashes Neurological: No Focal Motor or Sensory Deficit Psych/Mental Status: Appropriate 05/24/18 04:35: Sodium 144, Potassium 4.5, Chloride 113 H, Carbon Dioxide 24.0, Anion Gap 7, BUN 25 H, Creatinine 1.29, Est GFR (MDRD) Af Amer 69, Est GFR (MDRD) Non-Af 57 L, BUN/Creatinine Ratio 19.4, Glucose 103, Calcium 8.4 L, Total Bilirubin 0.90, Triglycerides 69, Cholesterol 120, LDL Cholesterol 62, VLDL Cholesterol 14, HDL Cholesterol 44 05/24/18 04:35: PT 13.7, INR 1.1, APTT 26.9 05/24/18 04:35: WBC 4.2 L, RBC 4.97, Hgb 14.1, Hct 43.5, MCV 87.5, MCH 28.4, MCHC 32.4, RDW 13.6, RDW Differential 43.2, Plt Count 156, MPV 10.3 Rhythm: EKG: ECHO: Stress Test: Cardiac Cath: PCI: CT Surgery: Holter monitor: EPS: PPM: CXR: Chest CT Scan: Medical Necessity - Tobacco Use Smoking Status: Never smoker Assessment/Plan * 1. Syncope The etiology of the above is unclear to me at this time but it appears that he may have a sick sinus syndrome. He underwent stress testing today we did not demonstrate any evidence of ischemia however he did develop a supraventricular tachyarrhythmia, and a junctional tachyarrhythmia as well. With his first-degree AV block at rest I am hesitant to put him on a beta- man. At this juncture I would like to seek the input of an store sales manager. He appears to be stable enough to be discharged as an outpatient and be contacted by the store sales manager. He prefers to go to [place]. Arrangements were made through my office. Thank you for allowing me to participate in the care of your patient. Please don't hesitate to call if any issues arise
[2018-05-24] MEDS: Multivitamins,Ther W-Minerals Tablet 1 TABLET PO (11:12)
--- NOTE | 2018-05-24 15:17 | PCM.DC ---
- Discharge Diagnoses Current Active Problems: Current Active and Chronic Problems (Last Updated 04/11/17 @ 11:30 by Michelle Townsend) Syncope and collapse (Acute) Hypertension (Chronic) You will use the following diet at home:: Other - Resume previous diet Your food should be the consistency of: Regular Your liquids should be the consistency of: Regular/Thin Discharge Activity: May Not Drive - Until we identify what the cause of the fainting spell was and know how to treat it. May resume sexual activity in: No Restrictions Weight Bearing Status: Full weight bearing Call your doctor if you observe: Fever of 101 or Higher, Shortness of breath, Dizziness, Fainting spells, Chest pain Allergies/Adverse Reactions: Allergies No Known Allergies Allergy (Verified 05/22/18 15:28) Medications to take at Discharge aspirin 81 mg tablet,delayed release 81 mg PO DAILY 04/11/17 lisinopril 10 mg tablet 10 mg PO DAILY 04/11/17 xcrcfgxv-use-lskmt acid 300 mcg-lycopene 600 mcg-lutein 300 mcg tablet 1 tab PO DAILY 04/11/17 Simvastatin 40 mg PO DAILY 05/22/18 Primary Care Physician: Jeremiah Savage MD [Primary Care Provider] - Please follow up with your Primary Care Physician in: 1-2 weeks Test Results: Test results from this visit will be discussed in further detail at your follow-up appointment, if applicable. Please Follow Up With: Ralph Garcia MD When: Dr. Garcia's office will call you next week with a time to show up for your Proposed Discharge Date: 05/24/18
--- NOTE | 2018-05-24 15:21 | DCINST_ITS ---
- Discharge Diagnoses Current Active Problems: Current Active and Chronic Problems (Last Updated 04/11/17 @ 11:30 by Michelle Townsend) Syncope and collapse (Acute) Hypertension (Chronic) You will use the following diet at home:: Other - Resume previous diet Your food should be the consistency of: Regular Your liquids should be the consistency of: Regular/Thin Discharge Activity: May Not Drive - Until we identify what the cause of the fainting spell was and know how to treat it. May resume sexual activity in: No Restrictions Weight Bearing Status: Full weight bearing Call your doctor if you observe: Fever of 101 or Higher, Shortness of breath, Dizziness, Fainting spells, Chest pain Allergies/Adverse Reactions: Allergies No Known Allergies Allergy (Verified 05/22/18 15:28) Medications to take at Discharge aspirin 81 mg tablet,delayed release 81 mg PO DAILY 04/11/17 lisinopril 10 mg tablet 10 mg PO DAILY 04/11/17 sinizmfn-oba-ehhai acid 300 mcg-lycopene 600 mcg-lutein 300 mcg tablet 1 tab PO DAILY 04/11/17 Simvastatin 40 mg PO DAILY 05/22/18 Primary Care Physician: Jeremiah Savage MD [Primary Care Provider] - Please follow up with your Primary Care Physician in: 1-2 weeks Test Results: Test results from this visit will be discussed in further detail at your follow- up appointment, if applicable. Please Follow Up With: Ralph Garcia MD When: Dr. Garcia's office will call you next week with a time to show up for your Proposed Discharge Date: 05/24/18
--- NOTE | 2018-05-24 15:23 | DS.PCM_ITS ---
Discharge Date and Diagnosis Date of Admission: 05/22/18 Date of Discharge: 05/24/18 - Primary Discharge Diagnosis Active and Suspected Problems (Last Updated 04/11/17 @ 11:30 by Michelle Townsend) Syncope and collapse (Acute) First degree AV block (Acute) Accelerated junctional rhythm (Acute) - Secondary Discharge Diagnosis Chronic Problems (Last Updated 04/11/17 @ 11:30 by Michelle Townsend) Hyperlipidemia (Chronic) Hypertension (Chronic) Diet-controlled diabetes mellitus type 2 Stage I diastolic dysfunction Hospital Course and Treatment Imaging Results: Clinical Impression(s) from Imaging Studies Brain CT 05/22/18 15:37 IMPRESSION: Polypoid defect of the left maxillary sinus consistent with a mucoid retention cyst. There is no evidence of intracranial hemorrhage, acute infarct, or calvarial fracture. Electronically Signed: Hardeep Hughes MD at 17:21 EST , Service support , Chest X-Ray 05/22/18 17:00 IMPRESSION: Degenerative changes of the thoracic spine. No acute cardiopulmonary disease process is seen. Electronically Signed: Hardeep Hughes MD at 17:26 EST , Service support , Laboratory Results - last 24 hr 05/24/18 05/24/18 05/24/18 04:35 04:35 04:35 WBC 4.2 L RBC 4.97 Hgb 14.1 Hct 43.5 MCV 87.5 MCH 28.4 MCHC 32.4 RDW 13.6 RDW Differential 43.2 Plt Count 156 MPV 10.3 PT 13.7 INR 1.1 APTT 26.9 Sodium 144 Potassium 4.5 Chloride 113 H Carbon Dioxide 24.0 Anion Gap 7 BUN 25 H Creatinine 1.29 Estim Creat Clear Calc 48.73 Est GFR (MDRD) Af Amer 69 Est GFR (MDRD) Non-Af 57 L BUN/Creatinine Ratio 19.4 Glucose 103 Calcium 8.4 L Total Bilirubin 0.90 AST 20 ALT 31 Alkaline Phosphatase 54 Total Protein 6.2 L Albumin 3.2 Globulin 3.0 Albumin/Globulin Ratio 1.1 Triglycerides 69 Cholesterol 120 LDL Cholesterol 62 VLDL Cholesterol [address] Ralph Garcia[facility] Operations: None Procedures: 2-D Echocardiogram - Interpretation Summary The estimated ejection fraction is 65 %. Stage 1 diastolic dysfunction. Trivial tricuspid valve insufficiency. Right ventricular systolic pressure estimated to be 24 mmHg. There is no comparison study available. The study was technically difficult. Contrast injection was performed., Stress test - Conclusion: Exercise myocardial perfusion stress test with no evidence of ischemia. Periods of supraventricular tachyarrhythmia noted as well as junctional tachycardia noted. The above was asymptomatic and hemodynamically stable. Baseline first-degree AV block noted. Summary of Care Provided: The patient is a 77-year-old male with a past medical history of hypertension, diet-controlled diabetes mellitus type 2 and dyslipidemia who presented to the emergency department at [facility] on 05/22/2018 after having a unwitnessed syncopal episode. He stood up and started to feel lightheaded and then vision got blurry and he passed out. When he awoke he was alert and felt fine....his made him come to the hospital. He is still working at the age of 77. Vital signs at presentation to the emergency room were temperature 98.1, pulse rate 111, blood pressure 134/76, respiratory rate 16 and he was 97% saturated on room air. CBC was unremarkable. Sodium was 145 and the chloride was 111. The BUN was 29 with a creatinine of 1.23 and we have no baseline on this gentleman. Troponin was less than 0.015. Magnesium was normal at 2. EKG at admission showed accelerated junctional rhythm with no suspicious ST or T wave changes. Follow-up EKG showed P waves however the [place] interval was almost [address] brain showed no acute findings. Chest x-ray showed no infiltrates, pleural effusions or pulmonary vascular congestion. He was admitted to a monitored bed on PCU and serial cardiac enzymes were obtained and were negative. A surface echocardiogram was obtained and showed an ejection fraction of 65% with stage I diastolic dysfunction. There was trivial TR and the right ventricular systolic pressure was estimated to be 24 which is normal. Telemetry showed sinus rhythm with first-degree AV block, brief junctional rhythm and no significant ventricular ectopy. Dr. Ralph Garcia was consulted and recommended a treadmill nuclear stress test the following morning. The stress test was negative for ischemia and he exercised for 8 minutes and 46 seconds on a Barrie protocol. The maximum heart rate attained was 148 bpm which was 104% of the maximum predicted heart rate. He did have a narrow complex tachycardia at peak exercise and into the early recovery period. Approximately 53 seconds into the recovery. The patient was in a junctional tachycardia with a rate of approximately 137 bpm. He was asymptomatic. There were no ischemic ST or T wave changes. The gated nuclear ejection fraction was 61% and the nuclear scans revealed no evidence of ischemia. He was discharged home in Dr. Garcia will be arranging an EP study for him and the office will call him with the time and the place to show up. He will follow-up with Dr. Savage in 1-2 weeks. He will resume his regular home going med - Physical Exam General: Alert, Oriented x3, Cooperative, No apparent distress, Well developed, Well nourished HEENT: Atraumatic, PERRLA, EOMI, Normocephalic Oral: Moist Mucosa, No Gingival or Mucosal Lesions/ Ulcerations Neck: Supple, No JVD, Negative Carotid Bruits, No Nodes, No Nuchal Rigidity, Trachea Midline Lungs: Clear to auscultation, Normal air movement Cardiovascular: Regular rate, Regular Rhythm, Normal S1, Normal S2, No murmurs, No Ectopic Activity, No rub noted, No Gallop Abdomen: Bowel Sounds Present, Soft, Non Tender, Non-Distended, - - No abdominal bruits Extremities: No clubbing, No cyanosis, No edema, No Calf Tenderness, - - Dorsa lis pedis pulses are diminished bilaterally but the posterior tibial pulses are 3/3. Popliteal pulses are 3/3. Skin: No rashes, No breakdown Neurological: Cranial nerves II-XII grossly intact, Neuro grossly intact Psych/Mental Status: Normal Affect, Appropriate This note was generated with [employer] dictation software. It may contain incorrect words, spelling, and punctuation that were not noted in checking the note before signing. - Physical Exam Vital Signs Temp Pulse Resp BP Pulse Ox 98.2 F 65 18 138/84 H 96 05/24/18 11:10 05/24/18 15:01 05/24/18 11:10 05/24/18 11:10 05/24/18 11:10 Oxygen Delivery Method Room Air Weight: 189 lb Body Mass Index (BMI) 27.1 Orthostatic Vital Signs Start: 05/22/18 22:33 Freq: q24h Status: Active Protocol: Activity Type Activity Date Activity User E-Sign Co-Sign Detail Recorded Client Recorded Date Recorded By Document 05/24/18 06:49 PAL [id number] 05/24/18 06:56 PAL 05/24/18 06:49 Orthostatic Vitals Standing -Blood Pressure (90/60-120/80 mm Hg) 154/76 H -Extremity Use Right Arm -Pulse Rate (60-100 beats/min) 62 Sitting -Blood Pressure (90/60-120/80 mm Hg) 151/71 H -Extremity Use Right Arm -Pulse Rate (60-100 beats/min) 58 L Lying -Blood Pressure (90/60-120/80 mm Hg) 148/68 H -Extremity Use Right Arm -Pulse Rate (60-100 beats/min) 58 L Intake and Output for Last 24 Hours 05/22/18 05/23/18 05/24/18 23:59 23:59 23:59 Intake Total 371 / 371 2741 / 2741 290 / 290 Balance 371 / 371 2741 / 2741 290 / 290 Laboratory Tests Past 24 Hrs 05/24/18 05/24/18 05/24/18 04:35 04:35 04:35 WBC 4.2 L RBC 4.97 Hgb 14.1 Hct 43.5 MCV 87.5 MCH 28.4 MCHC 32.4 RDW 13.6 RDW Differential 43.2 Plt Count 156 MPV 10.3 PT 13.7 INR 1.1 APTT 26.9 Sodium 144 Potassium 4.5 Chloride 113 H Carbon Dioxide 24.0 Anion Gap 7 BUN 25 H Creatinine 1.29 Estim Creat Clear Calc 48.73 Est GFR (MDRD) Af Amer 69 Est GFR (MDRD) Non-Af 57 L BUN/Creatinine Ratio 19.4 Glucose 103 Calcium 8.4 L Total Bilirubin 0.90 AST 20 ALT 31 Alkaline Phosphatase 54 Total Protein 6.2 L Albumin 3.2 Globulin 3.0 Albumin/Globulin Ratio 1.1 Triglycerides 69 Cholesterol 120 LDL Cholesterol 62 VLDL Cholesterol 14 HDL Cholesterol 44 Discharge Activity: May Not Drive - Until we identify what the cause of the fainting spell was and know how to treat it. May resume sexual activity in: No Restrictions Weight Bearing Status: Full weight bearing Call your doctor if you observe: Fever of 101 or Higher, Shortness of breath, Dizziness, Fainting spells, Chest pain Home Medications: Medications to take at Discharge aspirin 81 mg tablet,delayed release 81 mg PO DAILY 04/11/17 lisinopril 10 mg tablet 10 mg PO DAILY 04/11/17 xfxxuqsv-lui-nejwj acid 300 mcg-lycopene 600 mcg-lutein 300 mcg tablet 1 tab PO DAILY 04/11/17 Simvastatin 40 mg PO DAILY 05/22/18 Primary Care Physician: Jeremiah Savage MD [Primary Care Provider] - Please follow up with your Primary Care Physician in: 1-2 weeks Please Follow Up With: Ralph Garcia MD When: Dr. Garcia's office will call you next week with a time to show up for your Disposition: Home Minutes spent on discharge:: 35 Medical Necessity - Tobacco Use Smoking Status: Never smoker Tobacco Use: Non-smoker Meaningful Use Info Meaningful Use Diagnoses (Choose all that apply): None applicable Code Visit Inpatient E&M: 16441 Disch Hosp
== END 2018-05-24 17:27 | disposition home or self-care (01) | DRG 312 ==
LOC: ED 16:27 → PCU 20:32
PROVIDERS: Internal Medicine Cardiovascular Disease; Admitting Provider Internal Medicine; Emergency Provider Emergency Medicine; Family Provider Family Medicine; PCP Family Medicine; Visit Provider Internal Medicine
DX: R55 Syncope and collapse (principal); I49.8 Other specified cardiac arrhythmias; E78.5 Hyperlipidemia, unspecified; I10 Essential (primary) hypertension; E11.9 Type 2 diabetes mellitus without complications; I44.0 Atrioventricular block, first degree; I51.89 Other ill-defined heart diseases
CPT/HCPCS: 36415; 70450; 71046; 78452; 80048; 80053; 80061; 83735; 84443; 84484; 85025; 85027; 85610; 85730; 93005; 93017; 93306; 93880; 99283; A9500; J7030; Q9957; A4216; C8929

== ENCOUNTER → 2019-03-26 12:37 | Outpatient (CLI) | payer MEDICARE, OTHER, SELFPAY ==
[2019-02-26 13:41] VITALS: BMI 27.6
[2019-03-26 13:53] LABS: Anion Gap 6 (5-15); BUN 45 mg/dL (7-18); BUN/Creat Ratio 26.9 RATIO (10-20); Calcium,Total 8.7 mg/dL (8.5-10.1); Chloride 108 mmol/L (98-107); Creatinine, Serum 1.67 mg/dL (0.70-1.30); EST Glomerular Filtration Rate 42 mL/min (>60); Est Glom Filt Rate - Afr Amer 51 mL/min (>60); Glucose 112 mg/dL (74-106); Potassium 4.3 mmol/L (3.5-5.1); Sodium Level 141 mmol/L (136-145)
== END ==
PROVIDERS: Family Provider Family Medicine; PCP Family Medicine; Referring Provider Internal Medicine Cardiovascular Disease; Visit Provider Internal Medicine Cardiovascular Disease
DX: I10 Essential (primary) hypertension (principal)
CPT/HCPCS: 36415; 80048

== ENCOUNTER → 2019-07-31 11:18 | Outpatient (CLI) | payer MEDICARE, OTHER, SELFPAY ==
[2019-02-26 13:41] VITALS: BMI 27.6
== END ==
PROVIDERS: PCP Family Medicine; Referring Provider Physician Assistant Medical; Visit Provider Physician Assistant Medical
DX: I44.0 Atrioventricular block, first degree (principal); I49.8 Other specified cardiac arrhythmias
CPT/HCPCS: 93225; 93226

== ENCOUNTER 2020-06-07 07:03 | Outpatient (RCR) | payer MEDICARE, OTHER, SELFPAY ==
[2019-09-02 11:08] VITALS: BMI 27.2
== END 2020-06-07 23:59 ==
LOC: IMMUN 07:03
PROVIDERS: PCP Family Medicine; Visit Provider Family Medicine
DX: Z23 Encounter for immunization (principal)
CPT/HCPCS: 0011A; 0012A

== ENCOUNTER → 2020-09-14 07:23 | Outpatient (CLI) | payer MEDICARE, OTHER, SELFPAY ==
[2020-09-07 09:49] VITALS: BMI 27.8
[2020-09-14 10:21] LABS: AST(SGOT) 20 U/L (15-37); Alanine Aminotransfer ALT/SGPT 38 U/L (16-61); Albumin, Serum 3.7 g/dL (3.2-5.0); Alkaline Phosphatase 53 U/L (45-117); Bilirubin, Direct 0.25 mg/dL (0.00-0.30); Cholesterol 151 mg/dL (200); Globulin 3.6 g/dL (2.2-4.2); High Density Lipoprotein 48 mg/dL; Protein, Total 7.3 g/dL (6.4-8.2); Triglycerides 93 mg/dL; Very Low Density Lipoprotein 19 mg/dL (5-40)
== END ==
PROVIDERS: PCP Family Medicine; Referring Provider Internal Medicine Cardiovascular Disease; Visit Provider Internal Medicine Cardiovascular Disease
DX: E78.00 Pure hypercholesterolemia, unspecified (principal)
CPT/HCPCS: 36415; 80061; 80076

== ENCOUNTER 2021-05-13 07:58 | Emergency (ER) | payer MEDICARE, OTHER, SELFPAY ==
[2021-05-13 07:59] VITALS: BP 149/70; PULSE 84; RESP 18; TEMP 37.4; O2SAT 95; BMI 28.7
--- NOTE | 2021-05-13 08:38 | EKG12_ITS ---
Test Reason : ABD PAIN Blood Pressure : / mmHG Vent. Rate : 077 BPM Atrial Rate : 077 BPM P-R Int : 370 ms QRS Dur : 100 ms QT Int : 382 ms P-R-T Axes : 011 -35 000 degrees QTc Int : 432 ms Sinus rhythm with 1st degree A-V block with Premature atrial complexes Left axis deviation Voltage criteria for left ventricular hypertrophy Abnormal ECG Confirmed by ZULEIMA AMEZQUITA, SAKINA ([id number]), copy editor RO SOLOMON ([id number]) on 05/16/2021 12:56:15 PM Referred By: JERZY Confirmed By:SAKINA DEWEY MD
--- NOTE | 2021-05-13 08:38 | RAD_ITS ---
STUDY: X-RAY CHEST REASON FOR EXAM: Male, 80 years old. Chest pain TECHNIQUE: Single AP portable view of the chest. COMPARISON: Comparison is made with prior study dated 05/22/2018. FINDINGS: EKG electrodes are seen. Stable mild increased markings at the lung bases suggestive of a scar. There is no demonstrated pleural abnormality. Normal size heart. Normal mediastinum and noah. Normal visualized pulmonary arteries. There is atherosclerotic tortuosity of the aortic arch and descending thoracic aorta. There are diffuse degenerative changes of the visualized thoracic spine. Normal visualized ribs, clavicles, and shoulders. There is no demonstrated abnormality of the visualized soft tissue structures of the upper abdomen. RAD/Chest 1 View (Portable) IMPRESSION: Stable mild increased markings at the lung bases suggestive of scarring. Electronically Signed: Ovidio العراقي MD at 9:04 EST ,
[2021-05-13 08:46] LABS: Absolute Lymphocyte Count 0.35 X10^3/uL (0.83-4.51); Absolute Neutrophil Count 11.5 X10^3/uL (2.0-7.7); Basophil# 0.02 X10^3/uL; Basophil% 0.2 % (0-1); Hematocrit 47.2 % (40-54); Hemoglobin 15.9 g/dL (13.0-16.5); Lymphocyte # 0.35 X10^3/ul (0.83-4.51); Lymphocyte % 2.7 % (19-41); Mean Corp Hgb Conc 33.7 g/dL (32-36); Mean Corpuscular Hgb 28.6 pg (27.0-32.0); Mean Platelet Vol. 10.7 fl (6.2-12.0); Monocyte# 0.81 X10^3/uL; Monocyte% 6.3 % (0-10); NRBC Flagged by Analyzer 0 % (0-5); Neutrophil # 11.54 X10^3/uL (2.7-7.7); Neutrophil % 90.3 % (47-70); POSITIVE DIFFERENTIAL YES; Platelet Count 191 K/mm3 (150-450); RBC Distribution Width CV 12.7 % (11.6-14.6); RBC Distribution Width SD 39.2 fl (35.1-43.9); Red Blood Count 5.55 M/mm3 (4.6-6.2); White Blood Count 12.8 K/mm3 (4.4-11.0)
[2021-05-13 08:50] LABS: Differential Indicated SCAN CRITERIA MET
[2021-05-13 08:54] LABS: D-Dimer Quantitative (DVT/PE) 1.88 FEU/ug/m (0.27-0.49)
--- NOTE | 2021-05-13 08:54 | EX.ED.DYSGE1 ---
HPI History of Present Illness Chief Complaint: Abd Pain Informant: patient and spouse/S.O. Narrative Narrative: 80-year-old male presenting to the emergency department with chief complaint of abdominal pain. Symptoms began 2 days ago described as a dull ache in his upper abdomen. Yesterday he felt it go up into his mid chest. Does not radiate into the back. He notes a history of hypertension hypercholesterolemia. Denies any nausea vomiting or diarrhea. During the night he took ibuprofen and a tramadol which she states really helped his discomfort. He states that currently he does not feel much pain. He denies any arm or leg symptoms. No fevers. He notes that he has had a mild cough and noticed some streaks of blood in sputum today. He notes that he recently returned home from a vacation the beach. No history of DVT or PE. [facility] Medical History (Updated 05/13/21 @ 10:[address] Albert Yi DO) Accelerated junctional rhythm Bronchitis Contact dermatitis Diabetes Essential (primary) hypertension First degree AV block Hx of fever Hyperlipidemia Sinusitis Syncope and collapse (05/2018) Home Medications aspirin 81 mg tablet,delayed release 81 mg PO DAILY 04/11/17 [History Last Taken 05/21/18 21:00] oeyueden-ehf-cqggo acid 300 mcg-lycopene 600 mcg-lutein 300 mcg tablet 1 tab PO DAILY 04/11/17 [History Last Taken 05/21/18] tadalafil 20 mg tablet 20 mg PO DAILY PRN 02/26/19 [History Last Taken Unknown] hydrochlorothiazide 25 mg tablet 25 mg PO DAILY #90 tab 05/10/20 [Rx Last Taken Unknown] lisinopril 40 mg tablet 40 mg PO DAILY #90 tab 05/10/20 [Rx Last Taken Unknown] simvastatin 40 mg tablet 40 mg PO DAILY #90 tablet 07/14/20 [Rx Last Taken Unknown] apixaban [Eliquis] 5 mg PO BID #74 tab 05/13/21 [Rx Last Taken Unknown] Allergy/AdvReac Type Severity Reaction Status Date / Time No Known Allergies Allergy Verified 05/13/21 08:04 Family History Mother Diabetes CVA (cerebral vascular accident) Father Diabetes Heart disease Surgical History Hx of cholecystectomy Social History Smoking Status: Never smoker alcohol intake: never ROS ROS ED Constitutional Constitutional ED: Denies chills or weight loss Eyes Eyes: Denies change in vision or diplopia ENT ENT ED: Denies ear pain, rhinorrhea or sore throat Cardiovascular Cardiovascular: Reports chest pain; Denies orthopnea, palpitations or racing heartbeat Respiratory/Chest Respiratory/Chest: Denies cough, dyspnea or orthopnea Gastrointestinal Gastrointestinal: Reports abdominal pain; Denies diarrhea, nausea or vomiting Genitourinary Genitourinary ED: Denies dysuria, hematuria or urinary frequency Musculoskeletal Musculoskeletal: Denies arthralgias or myalgias Integumentary Denies abscess or rash Neurologic Neurologic: Denies headache(s) or weakness Psychiatric Psychiatric: Denies anxiety, depression, suicidal ideation or suicidal thoughts Endocrine Endocrinology: Denies polydipsia, polyphagia or polyuria Allergic/Immunologic Allergic/Immunologic ED: Denies mouth swelling, tongue swelling or urticaria EXAM Physical Exam Const Vital Signs: 05/13/21 07:59 05/13/21 09:58 Temperature 99.3 F H Temperature Source Oral Pulse Rate 84 73 Respiratory Rate 18 20 H Blood Pressure 149/70 H 153/70 H Blood Pressure Mean 96 97 Pulse Ox 95 96 Oxygen Delivery Method Room Air Room Air Positive well nourished and well developed General Appearance ED: well developed HEENT Reports normocephalic, head/scalp atraumatic, TM's clear and moist mucous membranes Negative for trauma Tympanic Membrane ED: Yes TM's clear Eyes PERRL and EOMs intact bilaterally Neck no lymphadenopathy, supple and no JVD Resp normal respiratory effort and clear to auscultation bilaterally Cardio regular rate, regular rhythm and no murmurs GI normal to inspection, nondistended, normoactive bowel sounds and non-tender Palpation: soft Back/Spine no CVA tenderness and normal ROM Extremity normal to inspection General Extremety ED: Negative for edema General Extremity: Negative for edema Neuro oriented x3 and CN's II-XII intact bilaterally Sensorium / Orientation: alert Motor Exam: strength 5/5 throughout Psych mental status grossly normal Mood & Affect: Negative for depressed or tearful Skin no rashes or lesions noted and no wounds MDM MDM MDM Narrative Medical decision making narrative: Troponin is normal. D-dimer elevated 1.88. CTA of the chest demonstrates multiple areas of pulmonary embolism. CT then pelvis demonstrates multiple renal cyst bilaterally. There is no evidence of right heart strain at this time. He is not tachycardic hypotensive or hypoxic. Pain is controlled. He will be started on Eliquis. Advised follow-up with urology and primary care. Lab Data Attestation: I reviewed the patient's lab results. Labs: Laboratory Results - last 24 hr 05/13/21 05/13/21 05/13/21 08:05 08:05 08:05 WBC 12.8 H RBC 5.55 Hgb 15.9 Hct 47.2 MCV 85.0 MCH 28.6 MCHC 33.7 RDW Std Deviation 39.2 RDW Coeff of David 12.7 Plt Count 191 MPV 10.7 Immature Gran % (Auto) 0.500 Neut % (Auto) 90.3 H Lymph % (Auto) 2.7 L Mcmullen % (Auto) 6.3 Eos % (Auto) 0.0 Baso % (Auto) 0.2 Absolute Neuts (auto) 11.5 H Absolute Lymphs (auto) 0.35 L Nucleated RBC % 0 D-Dimer Quant (PE/DVT) 1.88 H* Sodium 135 L Potassium 4.3 Chloride 105 Carbon Dioxide 21.0 Anion Gap 9 BUN 34 H Creatinine 1.62 H Estim Creat Clear Calc 36.93 Est GFR (MDRD) Af Amer 53 L Est GFR (MDRD) Non-Af 44 L BUN/Creatinine Ratio 21.0 H Glucose 199 H Calcium 9.1 Total Bilirubin 2.20 H AST 30 ALT 43 Alkaline Phosphatase 71 Troponin I High Sens 8 Total Protein 7.9 Albumin 3.3 Globulin 4.6 H Albumin/Globulin Ratio 0.7 L Lipase 83 Urine Color Urine Clarity Urine pH Ur Specific Ryde Urine Protein Urine Glucose (UA) Urine Ketones Urine Occult Blood Urine Nitrite Urine Bilirubin Urine Urobilinogen Ur Leukocyte Esterase Urine RBC Urine WBC Ur Squamous Epith Cells Urine Bacteria Urine Mucus 05/13/21 09:00 WBC RBC Hgb Hct MCV MCH MCHC RDW Std Deviation RDW Coeff of David Plt Count MPV Immature Gran % (Auto) Neut % (Auto) Lymph % (Auto) Mcmullen % (Auto) Eos % (Auto) Baso % (Auto) Absolute Neuts (auto) Absolute Lymphs (auto) Nucleated RBC % D-Dimer Quant (PE/DVT) Sodium Potassium Chloride Carbon Dioxide Anion Gap BUN Creatinine Estim Creat Clear Calc Est GFR (MDRD) Af Amer Est GFR (MDRD) Non-Af BUN/Creatinine Ratio Glucose Calcium Total Bilirubin AST ALT Alkaline Phosphatase Troponin I High Sens Total Protein Albumin Globulin Albumin/Globulin Ratio Lipase Urine Color Yellow Urine Clarity Clear Urine pH 5.0 Ur Specific Ryde 1.020 Urine Protein Negative Urine Glucose (UA) Normal Urine Ketones 50 H Urine Occult Blood 10 H Urine Nitrite Negative Urine Bilirubin Negative Urine Urobilinogen Normal Ur Leukocyte Esterase 100 H Urine RBC 0 SEEN Urine WBC 0 SEEN Ur Squamous Epith Cells 0-5 SEEN Urine Bacteria 0 SEEN Urine Mucus 0 SEEN Radiography Diagnostic Testing: Clinical Impression(s) from Imaging Studies Chest X-Ray 05/13/21 08:38 IMPRESSION: Stable mild increased markings at the lung bases suggestive of scarring. Electronically Signed: Ovidio العراقي MD at 9:04 EST , Abdomen/Pelvis CT 05/13/21 09:28 IMPRESSION: Increased markings at the lung bases slightly worse on the right side with a tiny right pleural effusion. Coronary artery calcification. Multiple bilateral renal cysts as described. Sigmoid diverticulosis. Marked enlargement of the prostate with heterogeneous appearance and indentation at the bladder base. Electronically Signed: Ovidio العراقي MD at 10:35 EST , Chest CTA 05/13/21 09:28 IMPRESSION: Multiple bilateral pulmonary emboli in branches of the right and left lower lobe pulmonary arterial branches worse on the right side. Increased markings at the lung bases with areas of confluence worse in the right lower lobe with tiny right pleural effusion. Electronically Signed: Ovidio العراقي MD at 10:40 EST , EKG Initial EKG: Attestation: I personally reviewed and interpreted this EKG as follows: Comments: Sinus rhythm with a first-degree AV block. Ventricular rate of 77 bpm. PAC noted. Discharge Plan Triage Chief Complaint: Abd Pain ED Provider: Albert Yi Dx/Rx/DC Orders Clinical Impression: Chest pain, Abdominal pain, Pulmonary embolism, Renal cyst Instructions: Pulmonary Embolism Prescriptions: New Eliquis 5 MG tablet 5 mg PO BID Qty: 74 RF: 0 No Action aspirin [Adult Low Dose Aspirin] 81 mg tablet,delayed release (DR/EC) 81 mg PO DAILY RF: 0 ybvohgzu-dhs-MA-lycopen-lutein [Centrum Silver Men] 300-600-300 mcg tablet 1 tab PO DAILY RF: 0 tadalafil 20 mg tablet 20 mg PO DAILY PRN (Reason: Erectile Dysfunction) RF: 0 lisinopril 40 mg tablet 40 mg PO DAILY Qty: 90 RF: 3 hydrochlorothiazide 25 mg tablet 25 mg PO DAILY Qty: 90 RF: 3 simvastatin 40 mg tablet 40 mg PO DAILY Qty: 90 RF: 3 Primary Care Provider: Jeremiah Savage Referrals: Jeremiah Savage MD [Primary Care Provider] - 1-2 Weeks Activity Restrictions/Additional Instructions: I would recommend following up with urology for the renal cysts Disposition Disposition: Home, Self Care
[2021-05-13 08:59] LABS: ALB/GLOB Ratio 0.7 RATIO (0.9-2.4); AST(SGOT) 30 U/L (15-37); Alanine Aminotransfer ALT/SGPT 43 U/L (16-61); Albumin, Serum 3.3 g/dL (3.2-5.0); Alkaline Phosphatase 71 U/L (45-117); Anion Gap 9 (5-15); BUN 34 mg/dL (7-18); Calcium,Total 9.1 mg/dL (8.5-10.1); Chloride 105 mmol/L (98-107); Creatinine, Serum 1.62 mg/dL (0.70-1.30); EST Glomerular Filtration Rate 44 mL/min (>60); Est Glom Filt Rate - Afr Amer 53 mL/min (>60); Estimated Creatinine Clearance 36.93 ml/min; Globulin 4.6 g/dL (2.2-4.2); Glucose 199 mg/dL (74-106); Lipase 83 U/L (73-393); Potassium 4.3 mmol/L (3.5-5.1); Protein, Total 7.9 g/dL (6.4-8.2); Sodium Level 135 mmol/L (136-145); Troponin-I HS 8 pg/mL (3.0-78.0)
[2021-05-13 09:13] LABS: Bacteria 0 SEEN /hpf (None Seen); Mucous, Urine 0 SEEN /hpf (<or=2+); Red Blood Cells-Urine 0 SEEN /hpf (0-5); White Blood Cells 0 SEEN /hpf (0-5)
[2021-05-13 09:20] LABS: Color, Urine Yellow (Yellow); Glucose, Dipstick Normal (Normal); Ketone-Dipstick 50 mg/dl (Negative); Leukocyte Esterase-Dipstick 100 /ul (Negative); Nitrite-Dipstick Negative (Negative); Occult Blood-Urine 10 /ul (Negative); Protein-Dipstick Negative (Negative); Urine Bilirubin Dipstick Negative (Negative); Urine Clarity Clear (Clear); Urine Urobilinogen Normal (Normal)
[2021-05-13 09:26] LABS: Squamous Epithelial Cells - UA 0-5 SEEN /hpf (0-5)
--- NOTE | 2021-05-13 09:28 | CT_ITS ---
STUDY: CTA CHEST REASON FOR EXAM: Male, 80 years old. Hemoptysis. Possible pulmonary embolism. RADIATION DOSAGE (If Supplied By Facility): CTDIvol = ( 22.44 ) mGy, DLP = ( 3556.22 ) mGycm TECHNIQUE: The examination was performed with the intravenous administration of IV 100mL Isovue-370. Post-processing of the angiographic images was performed, with multiplanar reformation and 3D reconstruction. Individualized dose optimization techniques were used for this CT. COMPARISON: Comparison is made with prior chest Done earlier in the day. FINDINGS: There are multiple bilateral intraluminal filling defects in branches of the right and left lower lobe pulmonary arteries. This is more prominent on the left lung base. There is atherosclerotic calcification of the aortic arch with tortuosity. There is no demonstrated aortic dissection. Coronary artery calcification. Normal mediastinum. Normal hilar regions. Normal visualized trachea and bronchi. The lungs are well expanded. Increased markings at the lung bases worse on the right lung base with a tiny right pleural effusion. Normal chest wall structures. There are degenerative changes of thoracic spine. Large left renal cysts. The patient is status post cholecystectomy. CT/CTA Chest W/WO Contrast IMPRESSION: Multiple bilateral pulmonary emboli in branches of the right and left lower lobe pulmonary arterial branches worse on the right side. Increased markings at the lung bases with areas of confluence worse in the right lower lobe with tiny right pleural effusion. Electronically Signed: Ovidio العراقي MD at 10:40 EST ,
--- NOTE | 2021-05-13 09:28 | CT_ITS ---
STUDY: CT ABDOMEN AND PELVIS WITH CONTRAST REASON FOR EXAM: Male, 80 years old. 2 day history of abdominal pain and hemoptysis. RADIATION DOSAGE (If Supplied By Facility): CTDIvol = ( 22.44 ) mGy, DLP = ( 3556.22 ) mGycm TECHNIQUE: Transaxial images were obtained from the dome of the diaphragm to the symphysis pubis without oral contrast. IV 100mL Isovue-370 was administered. Sagittal and coronal images were reconstructed. Individualized dose optimization techniques were used for this CT. COMPARISON: None. FINDINGS: Mild increased linear markings at the lung bases with areas of confluence worse at the right lung base. Minimal right pleural thickening. Coronary artery calcification. Normal liver. There are surgical clips in the gallbladder fossa consistent with a prior cholecystectomy. Normal spleen. There is diffuse atrophy of the pancreas. Normal bilateral adrenal glands. There is a 7.7 cm x 9.8 cm cyst in the upper lateral aspect of the right kidney. There is also evidence of smaller cysts in the lower pole. The largest measures 1.8 cm x 2.4 cm. There is a large 11.9 cm x 12.4 cm cyst in the upper posterior aspect of the left kidney. Several smaller cysts are also seen throughout the kidney. Normal visualized stomach. Normal small intestine. There are multiple colonic diverticula consistent with diverticulosis. The appendix is visualized and appears normal. There is scattered atherosclerotic calcification of the abdominal aorta, without a demonstrated aneurysm. Normal inferior vena cava. Normal retroperitoneum. Mild degree of bladder wall thickening. There is enlargement of the prostate gland. The prostate measures 5 cm x 6.3 cm. This causes indentation of the bladder base. It is of heterogeneous density with the central calcifications. Normal abdominal wall. There are diffuse degenerative changes of the visualized lumbar spine. There is straightening of the normal lumbar lordosis. CT/Abdomen/Pelvis W IV Cont ONLY IMPRESSION: Increased markings at the lung bases slightly worse on the right side with a tiny right pleural effusion. Coronary artery calcification. Multiple bilateral renal cysts as described. Sigmoid diverticulosis. Marked enlargement of the prostate with heterogeneous appearance and indentation at the bladder base. Electronically Signed: Ovidio العراقي MD at 10:35 EST ,
[2021-05-13 09:58] VITALS: BP 153/70; PULSE 73; RESP 20; O2SAT 96
[2021-05-13 11:07] VITALS: BP 130/78; PULSE 76; RESP 18; TEMP 36.9; O2SAT 97
[2021-05-13] MEDS: APIXABAN 5 MG TABLET 10 MG PO (11:11)
== END 2021-05-13 11:22 | disposition home or self-care (01) ==
PROVIDERS: Emergency Provider Emergency Medicine; PCP Family Medicine; Visit Provider Emergency Medicine
DX: I26.99 Other pulmonary embolism without acute cor pulmonale (principal); E11.9 Type 2 diabetes mellitus without complications; E78.5 Hyperlipidemia, unspecified; N28.1 Cyst of kidney, acquired; I10 Essential (primary) hypertension; Z79.82 Long term (current) use of aspirin; Z79.899 Other long term (current) drug therapy; I44.0 Atrioventricular block, first degree
CPT/HCPCS: 71045; 71275; 74177; 80053; 81001; 83690; 84484; 85025; 85379; 93005; 99283; Q9967; A4216

== ENCOUNTER 2021-09-06 21:35 | Emergency (ER) | payer MEDICARE, OTHER, SELFPAY ==
[2021-09-06 21:36] VITALS: BP 169/77; PULSE 66; RESP 16; TEMP 36.6; O2SAT 99; BMI 27.2
--- NOTE | 2021-09-06 22:01 | ED.VIS.GI ---
HPI HPI - GI History of Present Illness Chief Complaint: Abd Pain Informant: patient and spouse/S.O. Narrative Narrative: Patient is an 80-year-old male presenting with 1 day of abdominal discomfort and diarrhea. Patient states around 4 AM he woke up and started having diarrhea. He has had numerous episodes throughout the day. He has had some associated dry heaves with mucus production. He is also had increased gas and burping. Denies any blood in his stool. Does have associated diffuse abdominal cramping especially has a bowel movement. Feels that he had decreased urine output today. Does have some pressure in his pelvis is not sure if he is emptying his bladder. Denies any lightheadedness. No report of any fever or chills. No report of any sick contacts or eating suspicious food. Patient is concerned because over the past few months he is eaten approximately half a container of Jif peanut butter however he did not suddenly eat peanut butter yesterday that was different from what he is been having the last few months. Has a history of cholecystectomy but no other abdominal surgeries. No other complaints at this time. [facility] Medical History (Updated 09/07/21 @ 00:[address] Zainab Sorensen, DO) Accelerated junctional rhythm Bronchitis Contact dermatitis Cyst of kidney, acquired Diabetes Essential (primary) hypertension First degree AV block Hx of fever Hyperlipidemia Pulmonary embolism Sinusitis Syncope and collapse (05/2018) Home Medications aibflwhj-hxy-brktw acid 300 mcg-lycopene 600 mcg-lutein 300 mcg tablet 1 tab PO DAILY 04/11/17 [History Last Taken 05/21/18] tadalafil 20 mg tablet 20 mg PO DAILY PRN 02/26/19 [History Last Taken Unknown] simvastatin 40 mg tablet 40 mg PO DAILY #90 tablet 07/14/20 [Rx Last Taken Unknown] lisinopril 40 mg tablet 40 mg PO DAILY #90 tab 05/16/21 [Rx Last Taken Unknown] amlodipine 5 mg tablet 5 mg PO DAILY #30 tab 06/23/21 [Rx Last Taken Unknown] apixaban [Eliquis] 2.5 mg PO BID 09/06/21 [History Last Taken Unknown] cimetidine [Tagamet] 600 mg PO QHS 09/06/21 [History Last Taken Unknown] ondansetron 4 mg PO Q6H PRN #10 tab 09/07/21 [Rx Last Taken Unknown] Allergy/AdvReac Type Severity Reaction Status Date / Time No Known Allergies Allergy Verified 09/06/21 21:37 Family History Mother Diabetes CVA (cerebral vascular accident) Father Diabetes Heart disease Surgical History Hx of cholecystectomy Social History Smoking Status: Never smoker alcohol intake: never ROS ROS ED Constitutional Constitutional ED: Denies chills or fever(s) ENT ENT ED: Denies rhinorrhea or sore throat Cardiovascular Cardiovascular: Denies chest pain or palpitations Respiratory/Chest Respiratory/Chest: Denies dyspnea Gastrointestinal Gastrointestinal: Reports abdominal pain, diarrhea and nausea; Denies constipation, melena or vomiting Genitourinary Genitourinary ED: Reports other Details: Decreased urine output ; Denies dysuria Musculoskeletal Musculoskeletal: Denies arthralgias or myalgias Integumentary Denies rash Neurologic Neurologic: Denies headache(s), paresthesias or weakness Psychiatric Psychiatric: Denies depression EXAM Physical Exam Const Vital Signs: 09/06/21 21:36 Temperature 97.8 F Temperature Source Temporal Pulse Rate 66 Respiratory Rate 16 Blood Pressure 169/77 H Blood Pressure Mean 107 Pulse Ox 99 Oxygen Delivery Method Room Air Positive well nourished and well developed General Appearance ED: well developed and NAD HEENT normocephalic and atraumatic Eyes PERRL and EOMs intact bilaterally Neck supple and no JVD Resp normal respiratory effort and clear to auscultation bilaterally Cardio regular rate, regular rhythm and no murmurs GI non-tender and non-distended Auscultation: normoactive bowel sounds Palpation: soft; Negative for guarding or rigid Back/Spine no CVA tenderness Extremity full ROM General Extremety ED: Negative for edema General Extremity: Negative for edema Neuro Sensorium / Orientation: alert, oriented to person, oriented to place and oriented to time Motor Exam: Negative for general weakness Psych mental status grossly normal Skin Lesions: no lesions Rashes: no rashes MDM MDM MDM Narrative Medical decision making narrative: Patient is for 1 day of nausea, abdominal cramping and diarrhea. Denies any black or blood in his stool. Abdomen is soft with no peritoneal signs. No specific tenderness. Will check basic labs looking for signs of dehydration or electrolyte normalities. If there are significant abnormalities or significant leukocytosis we will add on imaging. Will initially treat with IV Zofran and IV fluids. Patient has no further diarrhea in the emergency room. Lab work is remarkable for an elevated lipase. Its 2 times upper limit of normal. No significant epigastric pain. Did add on a CT of the abdomen and pelvis looking for any upper abdominal pathology/signs of pancreatitis as well as diverticulitis. CT is unremarkable. Patient will be discharged home with oral Zofran instructions to take [id number]-[id number] Pepto-Bismol for his GI symptoms. Counseled return precautions including worsening diarrhea, abdominal pain or blood in his stool. Verbalized agreement understand this plan. Lab Data Labs: Laboratory Results - last 24 hr 09/06/21 09/06/21 09/06/21 22:07 22:07 22:25 WBC 9.0 RBC 5.41 Hgb 15.1 Hct 46.9 MCV 86.7 MCH 27.9 MCHC 32.2 RDW Std Deviation 42.2 RDW Coeff of David 13.4 Plt Count 185 MPV 9.9 Immature Gran % (Auto) 0.300 Neut % (Auto) 87.7 H Lymph % (Auto) 5.5 L Cameron % (Auto) 6.1 Eos % (Auto) 0.2 Baso % (Auto) 0.2 Absolute Neuts (auto) 7.9 H Absolute Lymphs (auto) 0.49 L Nucleated RBC % 0 Differential Comment SEE COMMENT Platelet Estimate ADEQUATE RBC Morphology NORM C+C Anisocytosis RARE Sodium 140 Potassium 4.5 Chloride 109 H Carbon Dioxide 24.0 Anion Gap 7 BUN 37 H Creatinine 1.71 H Estim Creat Clear Calc 34.98 Est GFR (MDRD) Af Amer 50 L Est GFR (MDRD) Non-Af 41 L BUN/Creatinine Ratio 21.6 H Glucose 179 H Calcium 9.6 Magnesium 2.0 Total Bilirubin 0.90 AST 19 ALT 31 Alkaline Phosphatase 49 Total Protein 7.5 Albumin 3.8 Globulin 3.7 Albumin/Globulin Ratio 1.0 Lipase 627 H Urine Color Yellow Urine Clarity Clear Urine pH 5.0 Ur Specific [place] 1.025 Urine Protein 30 H Urine Glucose (UA) Normal Urine Ketones 5 H Urine Occult Blood 25 H Urine Nitrite Negative Urine Bilirubin Negative Urine Urobilinogen Normal Ur Leukocyte Esterase Negative Urine RBC 0-5 SEEN Urine WBC 0-5 SEEN Ur Squamous Epith Cells 0-5 SEEN Urine Bacteria RARE Urine Mucus 0 SEEN Radiography Diagnostic Testing: Clinical Impression(s) from Imaging Studies Abdomen/Pelvis CT 09/06/21 22:50 IMPRESSION: No acute findings. Stable chronic changes as compared to prior. No evidence of acute pancreatitis. Electronically Signed: Rosalio Coon DO at 23:49 EDT Reading Location ID and State: [facility] / [place] Tel , Service support , Discharge Plan Triage Chief Complaint: Abd Pain ED Provider: Zainab Sorensen Dx/Rx/DC Orders Clinical Impression: Nausea vomiting and diarrhea, Abdominal pain, Elevated lipase Instructions: ED Diarrhea, Unknown Cause, ED Abdominal Pain Unkn Cause Male... Prescriptions: New ondansetron 4 mg tablet,disintegrating 4 mg PO Q6H PRN (Reason: nausea and vomiting) Qty: 10 RF: 0 No Action [id number] [Centrum Silver Men] 300-600-300 mcg tablet 1 tab PO DAILY RF: 0 tadalafil 20 mg tablet 20 mg PO DAILY PRN (Reason: Erectile Dysfunction) RF: 0 cimetidine [Tagamet] 300 mg Tablet 600 mg PO QHS RF: 0 Eliquis 5 MG tablet 2.5 mg PO BID RF: 0 simvastatin 40 mg tablet 40 mg PO DAILY Qty: 90 RF: 3 lisinopril 40 mg tablet 40 mg PO DAILY Qty: 90 RF: 3 amlodipine 5 mg tablet 5 mg PO DAILY Qty: 30 RF: 11 Primary Care Provider: Jeremiah Savage Referrals: Jeremiah Savage MD [Primary Care Provider] - Activity Restrictions/Additional Instructions: Ihmx-jpq-brhphut Pepto-Bismol can be helpful for diarrhea and abdominal discomfort. The exact cause of your symptoms not clear, this could be a viral gastroenteritis. Disposition Disposition: Home, Self Care
[2021-09-06 22:15] LABS: Absolute Lymphocyte Count 0.49 X10^3/uL (0.83-4.51); Absolute Neutrophil Count 7.9 X10^3/uL (2.0-7.7); Basophil# 0.02 X10^3/uL; Basophil% 0.2 % (0-1); Eosinophil# 0.02 X10^3/uL; Eosinophils% 0.2 % (0-5); Hematocrit 46.9 % (40-54); Hemoglobin 15.1 g/dL (13.0-16.5); Lymphocyte # 0.49 X10^3/ul (0.83-4.51); Lymphocyte % 5.5 % (19-41); Mean Corp Hgb Conc 32.2 g/dL (32-36); Mean Corpuscular Hgb 27.9 pg (27.0-32.0); Mean Corpuscular Volume 86.7 fL (80-94); Mean Platelet Vol. 9.9 fl (6.2-12.0); Monocyte# 0.55 X10^3/uL; Monocyte% 6.1 % (0-10); NRBC Flagged by Analyzer 0 % (0-5); Neutrophil # 7.88 X10^3/uL (2.7-7.7); Neutrophil % 87.7 % (47-70); POSITIVE DIFFERENTIAL YES; Platelet Count 185 K/mm3 (150-450); RBC Distribution Width CV 13.4 % (11.6-14.6); RBC Distribution Width SD 42.2 fl (35.1-43.9); Red Blood Count 5.41 M/mm3 (4.6-6.2)
[2021-09-06 22:16] LABS: Differential Indicated SCAN CRITERIA MET
[2021-09-06] MEDS: 0.9% Normal Saline 1,000 ML 1000 ML IV (22:23)
[2021-09-06] MEDS: Ondansetron 4 MG/2 ML Vial IV (22:23)
[2021-09-06 22:32] LABS: AST(SGOT) 19 U/L (15-37); Alanine Aminotransfer ALT/SGPT 31 U/L (16-61); Albumin, Serum 3.8 g/dL (3.2-5.0); Alkaline Phosphatase 49 U/L (45-117); Anion Gap 7 (5-15); BUN 37 mg/dL (7-18); BUN/Creat Ratio 21.6 RATIO (10-20); Calcium,Total 9.6 mg/dL (8.5-10.1); Chloride 109 mmol/L (98-107); Creatinine, Serum 1.71 mg/dL (0.70-1.30); EST Glomerular Filtration Rate 41 mL/min (>60); Est Glom Filt Rate - Afr Amer 50 mL/min (>60); Estimated Creatinine Clearance 34.98 ml/min; Globulin 3.7 g/dL (2.2-4.2); Glucose 179 mg/dL (74-106); Lipase 627 U/L (73-393); Potassium 4.5 mmol/L (3.5-5.1); Protein, Total 7.5 g/dL (6.4-8.2); Sodium Level 140 mmol/L (136-145)
[2021-09-06 22:37] LABS: Mucous, Urine 0 SEEN /hpf (<or=2+)
[2021-09-06 22:42] LABS: Color, Urine Yellow (Yellow); Glucose, Dipstick Normal (Normal); Ketone-Dipstick 5 mg/dl (Negative); Leukocyte Esterase-Dipstick Negative /ul (Negative); Nitrite-Dipstick Negative (Negative); Occult Blood-Urine 25 /ul (Negative); Protein-Dipstick 30 mg/dl (Negative); Specific Gravity, Urine 1.025 (1.002-1.030); Urine Bilirubin Dipstick Negative (Negative); Urine Clarity Clear (Clear); Urine Urobilinogen Normal (Normal)
--- NOTE | 2021-09-06 22:50 | CT_ITS ---
STUDY: CT ABDOMEN AND PELVIS WITH CONTRAST REASON FOR EXAM: Male, 80 years old. vomiting, diarrhea, elevated lipase RADIATION DOSAGE (If Supplied By Facility): CTDIvol = ( 20.60 ) mGy, DLP = ( 1249.86 ) mGycm TECHNIQUE: Transaxial images were obtained from the dome of the diaphragm to the symphysis pubis without oral contrast. IV 75mL Isovue-300 was administered. Sagittal and coronal images were reconstructed. Individualized dose optimization techniques were used for this CT. COMPARISON: 05/13/2021 FINDINGS: The visualized lung bases are unremarkable. The visualized portions of the heart are within normal limits. Normal liver. There are surgical clips in the gallbladder fossa consistent with a prior cholecystectomy. Normal spleen. Normal pancreas. Normal bilateral adrenal glands. Stable multiple large bilateral nonenhancing renal cysts. Otherwise, unremarkable kidneys. Normal visualized stomach. Normal small intestine. There are multiple colonic diverticula consistent with diverticulosis. The appendix is visualized and appears normal. Normal abdominal aorta. Normal inferior vena cava. Normal retroperitoneum. Normal urinary bladder. Enlarged prostate. Normal abdominal wall. There are diffuse degenerative changes of the visualized lumbar spine. CT/Abdomen/Pelvis W IV Cont ONLY IMPRESSION: No acute findings. Stable chronic changes as compared to prior. No evidence of acute pancreatitis. Electronically Signed: Rosalio Coon DO at 23:49 EDT ,
[2021-09-06 22:54] LABS: Bacteria RARE /hpf (None Seen); Red Blood Cells-Urine 0-5 SEEN /hpf (0-5); Squamous Epithelial Cells - UA 0-5 SEEN /hpf (0-5); White Blood Cells 0-5 SEEN /hpf (0-5)
[2021-09-06 23:12] LABS: Anisocytosis RARE; Platelet Estimate ADEQUATE (ADEQ); Red Cell Morphology NORM C+C NORMAL (NORM C&C)
[2021-09-07 00:38] VITALS: BP 144/71; PULSE 64; RESP 16; O2SAT 99
== END 2021-09-07 00:48 | disposition home or self-care (01) ==
PROVIDERS: Emergency Provider Emergency Medicine; PCP Family Medicine; Visit Provider Emergency Medicine
DX: R11.2 Nausea with vomiting, unspecified (principal); E11.9 Type 2 diabetes mellitus without complications; R74.8 Abnormal levels of other serum enzymes; R19.7 Diarrhea, unspecified; I10 Essential (primary) hypertension; E78.5 Hyperlipidemia, unspecified; R14.2 Eructation; Z79.01 Long term (current) use of anticoagulants; Z79.899 Other long term (current) drug therapy; Z90.49 Acquired absence of other specified parts of digestive tract
CPT/HCPCS: 74177; 80053; 81001; 83690; 83735; 85025; 96361; 96374; 99283; J7030; Q9967; A4216; J2405

== ENCOUNTER → 2022-01-28 | Outpatient (CLI) | payer MEDICARE, OTHER, SELFPAY ==
[2022-01-28 09:47] LABS: AST(SGOT) 23 U/L (15-37); Alanine Aminotransfer ALT/SGPT 28 U/L (16-61); Albumin, Serum 3.7 g/dL (3.2-5.0); Alkaline Phosphatase 49 U/L (45-117); Bilirubin, Direct 0.27 mg/dL (0.00-0.30); Cholesterol 122 mg/dL (200); Globulin 3.3 g/dL (2.2-4.2); High Density Lipoprotein 58 mg/dL; Triglycerides 44 mg/dL; Very Low Density Lipoprotein 9 mg/dL (5-40)
== END | disposition home or self-care (01) ==
LOC: LAB 08:07
PROVIDERS: PCP Family Medicine; Referring Provider Internal Medicine Cardiovascular Disease; Visit Provider Internal Medicine Cardiovascular Disease
DX: E78.5 Hyperlipidemia, unspecified (principal)
CPT/HCPCS: 36415; 80061; 80076

== ENCOUNTER 2024-02-03 13:03 | Emergency (ER) | payer MEDICARE, OTHER, SELFPAY ==
[2024-02-03 13:04] VITALS: BP 156/62; PULSE 60; RESP 16; TEMP 36.4; O2SAT 97; BMI 27.1
--- NOTE | 2024-02-03 13:31 | ED.VIS.GI ---
HPI HPI - GI History of Present Illness Chief Complaint: Abd Pain Informant: patient Abdominal Pain/Flank Pain Onset: Today Context: Gradual Onset Timing: Continuous Quality: Dull and Sharp Location: LUQ Worsened by: Nothing Relieved by: Nothing Nausea/Vomiting/Emesis GI Symptom: Positive for Nausea and Vomiting Episodes: 1 Diarrhea/Melena/Hematochezia GI Symptom: Negative for Diarrhea, Melena or Hematochezia Associated Symptoms Associated Symptoms: Negative for Dysuria, Frequency or Hematuria Narrative Narrative: Patient presents with abdominal pain that began today. Patient states he and his both had some nausea and vomiting a few days ago after eating some [place] food. Patient was feeling better and started eating a regular diet again. After that, he started having some pain in the left side of his abdomen. Patient describes it as dull but sharp at times. Patient states nothing makes it better and nothing makes it worse. Patient states it is mainly over the left upper abdomen. Patient denies any radiation of the pain. Patient admits to an episode of nausea and vomiting. Patient denies any hematemesis or coffee-ground emesis. Patient denies any diarrhea, melena, or hematochezia. Patient denies any urinary complaints. [facility] Medical History Cyst of kidney, acquired Pulmonary embolism Essential (primary) hypertension Contact dermatitis First degree AV block Accelerated junctional rhythm Hyperlipidemia Syncope and collapse (05/2018) Bronchitis Sinusitis Diabetes Hx of fever Home Medications ?Medication ?Instructions ?Recorded ?Last Taken ?Type acvtvmbj-jf-sazwe 300 mcg-K 60 1 tab PO DAILY vitamin 04/11/17 05/21/18 History mcg-lycop 600 mcg-lutein 300 mcg tablet (Centrum Silver Men) tadalafil 20 mg tablet 20 mg PO DAILY PRN Erectile 02/26/19 Unknown History Dysfunction ondansetron 4 mg disintegrating 4 mg PO Q6H PRN nausea and 09/07/21 Unknown Rx tablet vomiting #10 tabs cholecalciferol (vitamin D3) 50 50 mcg PO DAILY 11/02/21 Unknown History mcg (2,000 unit) capsule aspirin 81 mg tablet,delayed 81 mg PO DAILY #90 tabs 03/22/22 Unknown Rx release (Adult Aspirin Regimen) cetirizine 10 mg tablet 10 mg PO DAILY PRN 01/24/23 Unknown History pantoprazole 40 mg tablet,delayed 40 mg PO DAILY 01/24/23 Unknown History release amlodipine 10 mg tablet 10 mg PO DAILY #90 tabs 01/24/24 Unknown Rx doxazosin 4 mg tablet 4 mg PO QHS #90 tabs 01/24/24 Unknown Rx losartan 50 mg tablet 50 mg PO DAILY #90 tabs 01/24/24 Unknown Rx simvastatin 20 mg tablet See Rx Instructions .Route 01/24/24 Unknown Rx .COMPLEX #90 tabs oxycodone-acetaminophen 5 mg-325 1 tab PO Q6H PRN PRN Pain 3 days 02/03/24 Unknown Rx mg tablet #12 TABLETS Allergy/AdvReac Type Severity Reaction Status Date / Time lisinopril AdvReac Intermediate Dry Verified 02/03/24 13:04 persistent cough Family History Mother Diabetes CVA (cerebral vascular accident) Father Diabetes Heart disease Surgical History Hx of cholecystectomy Social History Smoking Status: Never smoker alcohol intake: never ROS ROS ED Constitutional Constitutional ED: Denies chills or fever(s) Eyes Eyes: Denies blurry vision or change in vision ENT ENT ED: Denies rhinorrhea or sore throat Cardiovascular Cardiovascular: Denies chest pain or palpitations Respiratory/Chest Respiratory/Chest: Denies cough or dyspnea Gastrointestinal Gastrointestinal: Reports abdominal pain, nausea and vomiting; Denies diarrhea or melena Genitourinary Genitourinary ED: Denies dysuria or hematuria Musculoskeletal Musculoskeletal: Denies back pain or neck pain Integumentary Denies abscess or rash Neurologic Neurologic: Denies headache(s) or weakness Allergic/Immunologic Allergic/Immunologic ED: Denies mouth swelling or urticaria EXAM Physical Exam Const Vital Signs: 02/03/24 13:04 02/03/24 15:04 02/03/24 17:00 Temperature 97.5 F L Temperature Source Oral Pulse Rate 60 78 77 Respiratory Rate 16 19 H 18 Blood Pressure 156/62 H 165/69 H 149/61 H Blood Pressure Mean 93 101 90 Pulse Ox 97 Oxygen Delivery Method Room Air Positive well nourished and well developed General Appearance ED: well developed and NAD HEENT Reports moist mucous membranes Neck supple and no JVD Resp normal respiratory effort and clear to auscultation bilaterally Cardio regular rate and regular rhythm GI non-distended Palpation: soft and tender LLQ and LUQ; Negative for guarding or rebound tenderness present Neuro CN's II-XII intact bilaterally, moves all extremities and no sensory deficits noted Sensorium / Orientation: alert Motor Exam: strength 5/5 throughout Psych mental status grossly normal and thought process normal MDM MDM MDM Narrative Medical decision making narrative: Differential diagnose includes diverticulitis, ureteral calculus, pyelonephritis, gastroenteritis, pancreatitis, and urinary tract infection. CBC will be obtained to assess for leukocytosis and anemia. Comprehensive metabolic profile will be obtained to assess for hepatic function, renal function, and electrolyte abnormality. Lipase will be obtained to assess for pancreatitis. Urinalysis will be obtained to assess for urinary tract infection and hematuria. CT scan of the abdomen pelvis will be obtained to assess for diverticulitis, and ureteral calculus. Lab Data Attestation: I reviewed the patient's lab results. Lab results narrative: CBC was reviewed and was within normal limits. Comprehensive metabolic profile was reviewed. BUN was 35 and creatinine was 1.89. These are consistent with prior results. Lipase was reviewed and was normal at 26. Urinalysis was reviewed. Leukocyte esterase was 25 with positive nitrites. There are greater than 100 red blood cells but 0-5 white blood cells. There is 3+ bacteria. Labs: Laboratory Results - last 24 hr 02/03/24 02/03/24 13:55 15:53 WBC 8.0 RBC 5.08 Hgb 14.2 Hct 43.9 MCV 86.4 MCH 28.0 MCHC 32.3 RDW Std Deviation 43.0 RDW Coeff of David 13.5 Plt Count 169 MPV 10.6 Immature Gran % (Auto) 0.200 Neut % (Auto) 93.9 H Lymph % (Auto) 3.6 L [place] % (Auto) 2.0 Eos % (Auto) 0.2 Baso % (Auto) 0.1 Absolute Neuts (auto) 7.5 Absolute Lymphs (auto) 0.29 L Nucleated RBC % 0 Sodium 141 Potassium 4.2 Chloride 112 H Carbon Dioxide 23.0 Anion Gap 5 BUN 35 H Creatinine 1.89 H Estim Creat Clear Calc 30.04 Est GFR (MDRD) Af Amer 44 L Est GFR (MDRD) Non-Af 36 L BUN/Creatinine Ratio 18.5 Glucose 178 H Calcium 9.4 Total Bilirubin 1.10 H AST 18 ALT 27 Alkaline Phosphatase 54 Total Protein 7.7 Albumin 4.0 Globulin 3.7 Albumin/Globulin Ratio 1.1 Lipase 26 Urine Color Brown Urine Clarity Turbid Urine pH 5.0 Ur Specific [place] 1.015 Urine Protein 30 H Urine Glucose (UA) Normal Urine Ketones 15 H Urine Occult Blood 250 H Urine Nitrite Positive H Urine Bilirubin Negative Urine Urobilinogen Normal Ur Leukocyte Esterase 25 H Urine RBC > 100 SEEN Urine WBC 0-5 SEEN Ur Squamous Epith Cells 0-5 SEEN Urine Bacteria 3+ Hyaline Casts 0-5 SEEN Urine Mucus 2+ Urine Yeast 1+ Radiography Diagnostic Testing: Clinical Impression(s) from Imaging Studies Abdomen/Pelvis CT 02/03/24 13:40 IMPRESSION: (NOT LISTED IN ORDER OF SIGNIFICANCE) Moderate hydronephrosis caused by 5 mm left UVJ ureteral stone. Bilateral renal cysts. These appear stable. Urinary bladder wall has wall thickening. This can be related to a partially contractile state. However, a cystitis is not excluded. Urinalysis should be performed in an effort to exclude cystitis. There are multiple colonic diverticula consistent with diverticulosis. Decrease in size in indeterminate lesion in the mid right kidney. This may be proteinaceous or hemorrhagic cyst. Ultrasound can evaluate. Other findings as above. Electronically Signed: Jacek Brito MD at 15:39 EDT Reading Location ID and State: [facility] / [place] , Service support , CT scan of the abdomen and pelvis was obtained. There is a 5 mm calculus at the left ureterovesicular junction. There is moderate hydronephrosis. There are bilateral renal cysts that are stable. This was interpreted by the radiologist and was also independently reviewed by myself. Additional Tests and Interventions Additional Tests or Interventions: Urine culture was obtained. Treatment and Re-Evaluation :: Patient was given IV fluids, morphine, and Zofran. Patient was given a repeat dose of morphine. Patient was also given a dose of Dilaudid and a repeat dose of Zofran. Patient was feeling better on reevaluation. Patient was advised of his findings. Patient was instructed to drink plenty of fluids. Patient was given a prescription for a short course of Percocet. Patient was instructed to follow-up with his primary care physician in 5 to 7 days. Patient also was instructed to follow-up with his urologist in 3 to 5 days. Patient understood and was agreeable with the plan. All questions were answered. Discharge Plan Triage Chief Complaint: Abd Pain ED Provider: Finn Almeida Dx/Rx/DC Orders Clinical Impression: Calculus of distal left ureter, Essential (primary) hypertension Instructions: ED Kidney Stone with Pain Prescriptions: New oxycodone-acetaminophen 5-325 mg tablet 1 tab PO Q6H PRN PRN (Reason: Pain) 3 Days Qty: 12 0RF No Action [id number]-[id number]-cfzxhy [Centrum Silver Men] 300-600-300 mcg tablet 1 tab PO DAILY tadalafil 20 mg tablet 20 mg PO DAILY PRN (Reason: Erectile Dysfunction) cholecalciferol (vitamin D3) 50 mcg (2,000 unit) capsule 50 mcg PO DAILY pantoprazole 40 mg tablet,delayed release (DR/EC) 40 mg PO DAILY cetirizine 10 mg tablet 10 mg PO DAILY PRN amlodipine 10 mg tablet 10 mg PO DAILY Qty: 90 3RF doxazosin 4 mg tablet 4 mg PO QHS Qty: 90 3RF losartan 50 mg tablet 50 mg PO DAILY Qty: 90 3RF simvastatin 20 mg tablet See Rx Instructions .ROUTE .COMPLEX Qty: 90 3RF Dose Instruction: TAKE 1 TABLET DAILY FOR CHOLESTEROL Rx Instructions: TAKE 1 TABLET DAILY FOR CHOLESTEROL ondansetron 4 mg tablet,disintegrating 4 mg PO Q6H PRN (Reason: nausea and vomiting) Qty: 10 0RF aspirin [Adult Aspirin Regimen] 81 mg tablet,delayed release (DR/EC) 81 mg PO DAILY Qty: 90 3RF Primary Care Provider: Jeremiah Savage Referrals: Jeremiah Savage MD [Primary Care Provider] - 3-5 Days Activity Restrictions/Additional Instructions: Follow-up with your urologist in 3 to 5 days. Print Language: Kinyarwanda Disposition Disposition: Home, Self Care
--- NOTE | 2024-02-03 13:40 | CT_ITS ---
STUDY: CT Abdomen And Pelvis W/ Contrast Injection 02/03/2024 3:33 PM REASON FOR EXAM: Male, 83 years old. Abdominal pain Abdominal pain Individualized dose optimization techniques were used for this CT. COMPARISON: 09.06.21 TECHNIQUE: CT Abdomen And Pelvis W/ Contrast Injection IV 100mL Isovue-370 FINDINGS: There are atherosclerotic calcifications of visualized coronary arteries. The visualized portions of the heart are within normal limits. Intrahepatic ductal dilation. There are surgical clips in the gallbladder fossa consistent with a prior cholecystectomy. Normal spleen. Normal pancreas. Normal bilateral adrenal glands. There are hypodensities in the right kidney. These are consistent for cysts. No follow up required. There are hypodensities in the left kidney. These are consistent for cysts. No follow up required. Largest cyst on the right is 10 cm. This is 5 Hounsfield units. Largest cyst on the left kidney is 13 cm. This is 1 Hounsfield unit. Moderate hydronephrosis caused by 5 mm left UVJ ureteral stone. 18 mm hyperdense lesion in the posterior right kidney. This is 67 Hounsfield units. This has decreased in size since the prior study. Normal visualized stomach. Normal small intestine. There are multiple colonic diverticula consistent with diverticulosis. The appendix is visualized and appears normal. There are calcifications of the abdominal aorta. This is consistent for atherosclerotic disease. There is NO abdominal aortic aneurysm. Vascular workup can be obtained based on clinical correlation. Normal inferior vena cava. Subcentimeter mesenteric lymph nodes. Urinary bladder wall has wall thickening. This can be related to a partially contractile state. However, a cystitis is not excluded. Urinalysis should be performed in an effort to exclude cystitis. There are prostatic calcifications. Enlarged prostate gland. Normal abdominal wall. There are diffuse degenerative changes of the visualized lumbar spine. There is bilateral neural foraminal stenosis at L4-5 and L5-S1. CT/Abdomen/Pelvis W IV Cont ONLY IMPRESSION: (NOT LISTED IN ORDER OF SIGNIFICANCE) Moderate hydronephrosis caused by 5 mm left UVJ ureteral stone. Bilateral renal cysts. These appear stable. Urinary bladder wall has wall thickening. This can be related to a partially contractile state. However, a cystitis is not excluded. Urinalysis should be performed in an effort to exclude cystitis. There are multiple colonic diverticula consistent with diverticulosis. Decrease in size in indeterminate lesion in the mid right kidney. This may be proteinaceous or hemorrhagic cyst. Ultrasound can evaluate. Other findings as above. Electronically Signed: Jacek Brito MD at 15:39 EDT ,
--- OUTSIDE RECORDS SUMMARY | 2024-02-03 13:46 | XMS RPT_ITS | CCD ---
Author Organization [facility] Care Team Providers Care Plan Manager Name Role Phone JUAN MANUEL ALVARADO Attending Unavailable RADHA, RALPH S Referring Unavailable JUAN MANUEL ALVARADO Attending Unavailable RADHA, RALPH S Referring Unavailable Jenae Savage Primary Care Unavailable JUAN MANUEL ALVARADO Attending Unavailable RADHA, RALPH S Referring Unavailable Jenae Savage Primary Care Unavailable Jenae Savage MD Primary Care Provider Radha, Ralph S Unavailable Juan Manuel Alvarado MD Unavailable Jenae Savage MD Primary Care Provider Radha, [place] S Unavailable Juan Manuel Alvarado MD Unavailable Jenae Savage MD Primary Care Provider Radha, [place] S Unavailable Jenae Savage MD Primary Care Provider Radha, Ralph S Unavailable Juan Manuel Alvarado MD Unavailable Radha, Ralph S Unavailable Juan Manuel Alvarado MD Unavailable Radha AMEZQUITA [place] S Unavailable Jenae Savage MD Primary Care Provider Janusz Davenport MD Unavailable Ángel Julio DO Unavailable GARY KELLY Referring Unavailable ELDERJENAE GARCIA Primary Care Unavailable JAMES RAFAEL Attending Unavailable ELDERBROCK, JENAE Vasquez Primary Care Unavailable JAMES, RAFAEL Referring Unavailable ELDERBROCK, JENAE Vasquez Primary Care Unavailable JANUSZ DAVENPORT Attending Unavailabl e ELDERBROCK, JENAE D Primary Care Unavailable ELDERBROCK, JENAE D Primary Care Unavailable ELDERBROCK, JENAE D Primary Care Unavailable GARY KELLY Attending Unavailable KHAN, GINGER Referring Unavailable ELDERBROCK, JENAE Vasquez Primary Care Unavailable KHAN, GINGER Referring Unavailable JAMES, RAFAEL Attending Unavailable ELDERBROCK, JENAE D Primary Care Unavailable JAMES, RAFAEL Referring Unavailable ELDERBROCK, JENAE D Primary Care Unavailable GINGER KHAN Attending Unavailable ALENA, JENAE Vasquez Primary Care Unavailable GARY KELLY A Referring Unavailable ELDERBROCK, JENAE Vasquez Primary Care Unavailable MADCORBIN, ÁNGEL Attending Unavailable ELDERBROCK, JENAE D Primary Care Unavailable SELF Referring Unavailable MADITZ, ÁNGEL Referring Unavailable ELDERBROCK, JENAE Vasquez Primary Care Unavailable Allergies Allergy Classification Reported Allergen(s) Allergy Type Date of Onset Reaction(s) Facility (17 sources) Lisinopril; Translations: [LISINOPRIL] Drug Allergy 11-24-2022 Intolerance [facility] Work Phone: Medications Current Medications Medication Drug Class(es) Dates Sig (Normalized) Sig (Original) amLODIPine 5 mg oral tablet (20 sources) Dihydropyridine Calcium Channel Gonzales Start: 11-23-2023 End: 11-23-2023 take 1 tablet by mouth once daily amLODIPine (NORVASC) 2.5 mg tablet Indications: Essential hypertension, benign Take 1 tablet by mouth once daily. 30 tablet 1 11/23/2023 11/23/2023 Discontinued (Adjust Sig - Block E-Cancel) Start: 04-25-2023 End: 11-23-2023 take 1 tablet by mouth once daily amLODIPine (NORVASC) 5 mg tablet Indications: Essential hypertension, benign Take 1 tablet by mouth once daily. 11/23/2023 Active Start: 11-22-2021 End: 05-25-2023 take 1 tablet by mouth once daily amLODIPine (NORVASC) 10 mg tablet Take 1 tablet by mouth once daily. 11/22/2021 05/25/2023 Discontinued (Course of therapy completed) End: 11-22-2021 amLODIPine (NORVASC) 5 mg ta blet Take by mouth once daily. 0 11/22/2021 Discontinued (Adjust Sig - Block E-Cancel) Comment on above: Take by mouth once d aily. Take 1 tablet by dipti th once daily. aspirin 81 mg oral tablet (20 sources) Platelet Aggregation Inhibitor, Nonsteroidal Anti-inflammatory Drug take 1 tablet by mouth once daily Aspirin 81 mg Tab Take 81 mg by mouth once daily. Active Comment on above: Take 81 mg by mouth once daily. cetirizine hydrochloride 10 mg oral tablet (20 sources) Histamine-1 Receptor Antagonist Start: 3 End: 5 take 1 tablet by mouth once daily cetirizine (ZYRTEC) 10 mg tablet Take 1 tablet by mouth once daily. 90 tablet 3 12/06/2023 12/05/2024 Active Comment on above: Take 1 tablet by dipti th once daily. doxazosin 4 mg oral tablet (20 sources) alpha-Adrenergic Gonzales Start: 4 take 1 tablet by mouth once daily at bedtime doxazosin (CARDURA) 4 mg tablet Take 1 tablet by mouth daily at bedtime. 11/23/2023 Active Start: 05-07-2022 End: 11-23-2023 take 1 tablet by mouth once daily at bedtime doxazosin (CARDURA) 2 mg tablet Take 1 tablet by mouth daily at bedtime. 05/07/2022 11/23/2023 Discontinued (Adjust Sig - Block E-Cancel) Comment on above: Take 1 tablet by dipti th daily at bedtime. ergocalciferol, vitamin D2, (VITAMIN D2 ORAL) (20 sources) take 2 capsules by mouth once daily ergocalciferol, vitamin D2, (VITAMIN D2 ORAL) Take 2 capsules by mouth once daily. Active take 2 capsules by mouth once da zachary ergocalciferol, vitamin D2, (VITAMIN D2 ORAL) Take 2 capsules by mouth once daily. 0 Active ergocalciferol, vitamin D2, (VITAMIN D2 ORAL) Take by mouth. 0 Active Comment on above: Take by mouth. Take 2 capsules by m outh once daily. fluticasone propionate 0.05 mg/actuat metered dose nasal spray (18 sources) Corticosteroid Start: 023 take 2 spray(s) by mouth once daily fluticasone (FLONASE) 50 mcg/actuation nasal spray Use 2 Sprays in each nostril once daily. Rinse mouth after use. 1 Each 3 09/07/2022 Active Comment on above: Use 2 Sprays in each nostril once daily. Rinse mouth after use. losartan potassium 50 mg oral tablet (15 sources) Angiotensin 2 Receptor Gonzales Start: take 1 tablet by mouth once losartan (COZAAR) 50 mg tablet Take 1 tablet by mouth every afternoon. 10/27/2022 Active Comment on above: Take 1 tablet by dipti th every afternoon. MULTIVITAMIN TAB (20 sources) Start: MULTIVITAMIN TAB Take one(1) tablet daily. 0 0 07/05/2007 Active Comment on above: Take one(1) tablet d aily. pantoprazole 40 mg delayed release oral tablet (17 sources) Proton Pump Inhibitor Start: End: 024 take 1 tablet by mouth once daily pantoprazole DR (PROTONIX) 40 mg tablet Indications: Gastroesophageal reflux disease without esophagitis Take 1 tablet by mouth once daily. 90 tablet 3 05/25/2023 Active Comment on above: Take 1 tablet by dipti th once daily. Take 40 mg by mouth once daily. simvastatin 20 mg oral tablet (20 sources) HMG-CoA Reductase Inhibitor Start: take 1 tablet by mouth once daily at bedtime simvastatin (ZOCOR) 20 mg tablet Indications: Hyperlipidemia, unspecified hyperlipidemia type Take 1 tablet by mouth daily at bedtime. 05/26/2022 Active Start: 06-06-2019 End: 05-26-2022 take 1 tablet by mouth once daily at bedtime simvastatin (ZOCOR) 40 mg tablet Indications: Hyperlipidemia, unspecified hyperlipidemia type Take 1 tablet by mouth daily at bedtime. 90 tablet 3 06/06/2019 05/26/2022 Discontinued (Adjust Sig - Block E-Cancel) Comment on above: Take 1 tablet by dipti th daily at bedtime. tadalafil 20 mg oral tablet (20 sources) Phosphodiesterase 5 Inhibitor Start: 11-24-2022 End: 02-01-2023 Tadalafil (CIALIS) 20 mg tablet Indications: ED (erectile dysfunction) of organic origin Take 1 tablet by mouth as needed. Take 30-60 minutes prior to sexual activity 30 tablet 5 02/01/2023 Active Start: 01-05-2021 End: 05-26-2022 Tadalafil (CIALIS) 20 mg tab (s) Indications: ED (erectile dysfunction) of organic origin Take 1 tablet by mouth as needed. Take 30-60 minutes prior to sexual activity 30 tablet 3 01/11/2022 05/26/2022 Discontinued (Course of therapy completed) Comment on above: Take 1 tablet by dipti as needed. Take 30-60 minutes prior to sexual activity Completed/Discontinued Medications Medication Drug Class(es) Dates Sig (Normalized) Sig (Original) apixaban 5 mg oral tablet (7 sources) Factor Xa Inhibitor Start: 06-24-2021 End: 11-22-2021 take 0.5 tablet by mouth twice daily apixaban (ELIQUIS) 5 mg tab(s) Indications: Acute pulmonary embolism, unspecified pulmonary embolism type, unspecified whether acute cor pulmonale present (HCC) Take 0.5 tablets by mouth twice daily. 180 tablet 5 06/24/2021 11/22/2021 Discontinued (Course of therapy completed) Comment on above: Take 0.5 tablets by mouth twice daily. cimetidine 400 mg oral tablet (9 sources) Histamine-2 Receptor Antagonist End: 11-24-2022 take 1 tablet by mouth once daily cimetidine (TAGAMET) 400 mg tablet Take 400 mg by mouth once daily. 11/24/2022 Discontinued (Course of therapy completed) Comment on above: Take 400 mg by mouth once daily. Lactobac no.41/Bifidobact no.7 (PROBIOTIC-10 ORAL) (7 sources) End: 05-26-2022 Lactobac no.41/Bifidobact no.7 (PROBIOTIC-10 ORAL) Take by mouth. 0 05/26/2022 Discontinued (Course of therapy completed) Lactobac no.41/B ifidobact no.7 (PROBIOTIC-10 ORAL) Take by mouth. 0 Active Comment on above: Take by mouth. lisinopril 40 mg oral tablet (18 sources) Angiotensin Converting Enzyme Inhibitor Start: 019 End: 023 take 1 tablet by mouth once daily lisinopril (ZESTRIL) 40 mg tablet Indications: Essential hypertension, benign Take 1 tablet by mouth once daily. 03/26/2019 11/24/2022 Discontinued (Course of therapy completed) Comment on above: Take 1 tablet by dipti th once daily. omeprazole 20 mg delayed release oral capsule (8 sources) Proton Pump Inhibitor Start: End: take 1 capsule by mouth once daily before breakfast omeprazole (PRILOSEC) 20 mg capsule Take 1 capsule by mouth daily before breakfast. 1/2 hr before meal. 90 capsule 3 06/19/2019 11/22/2021 Discontinued (Course of therapy completed) Comment on above: Take 1 capsule by mo uth daily before breakfast. 1/2 hr before meal. Take 20 mg by mouth once daily. traZODone hydrochloride 50 mg oral tablet (13 sources) Serotonin Reuptake Inhibitor Start: End: take 1 tablet by mouth once daily at bedtime as needed traZODone (DESYREL) 50 mg tablet Take 1 tablet by mouth daily at bedtime. Take as needed for insomnia 30 tablet 5 06/24/2021 05/26/2022 Discontinued (Course of therapy completed) Comment on above: Take 1 tablet by dipti th daily at bedtime. Take as needed for insomnia triamcinolone acetonide 1 mg/ml topical cream (7 sources) Corticosteroid Start: End: triamcinolone acetonide (KENALOG) 0.1 % cream Indications: Dermatitis Apply 1 application to affected area three times daily. Apply sparingly to area for rash/itching. 28.4 g 1 11/22/2021 05/26/2022 Discontinued (Course of therapy completed) Comment on above: Apply 1 application to affected area three times daily. Apply sparingly to area for rash/itching. Problems Active Problems Problem Classification Problem Date Documented Date Episodic/Chronic Allergic reactions (1 source) Inflammatory dermatosis; Translations: [Dermatitis, unspecified] Episodic Cardiac dysrhythmias (1 source) Supraventricular tachycardia; Translations: [Supraventricular tachycardia] Onset: 9 Chronic Chronic kidney disease (20 sources) Chronic kidney disease stage 3B ; Translations: [Stage 3b chronic kidney disease (HCC)] Onset: 0 Chronic Chronic kidney disease (2 sources) Chronic kidney disease; Translations: [Stage 3 chronic kidney disease, unspecified whether stage 3a or 3b CKD (HCC)] Onset: 0 Conduction disorders (20 sources) Atrioventricular block, first degree; Translations: [First degree atrioventricular block] Onset: 9 06-25-2018 Chronic Diabetes mellitus with complications (13 sources) Type 2 diabetes mellitus; Translations: [Type 2 diabetes mellitus with diabetic chronic kidney disease] Onset: 4 05-25-2023 Chronic Diabetes mellitus without complication (20 sources) Type 2 diabetes mellitus without complication; Translations: [Type 2 diabetes mellitus without complications] Onset: 6 09-05-2016 Chronic Diabetes mellitus without complication (1 source) Diabetes mellitus without complication; Translations: [Type 2 diabetes 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, without long-term current use of insulin, unspecified whether stage 3a or 3b CKD (HCC)] Onset: 4 Disorders of lipid metabolism (20 sources) Hyperlipidemia; Translations: [Hyperlipidemia, unspecified] Onset: 7 Chronic Disorders usually diagnosed in infancy, childhood, or adolescence (20 sources) Urinary incontinence of non-organic origin; Translations: [Enuresis not due to a substance or known physiological condition] Onset: 3 08-19-2012 Chronic Esophageal disorders (3 sources) Gastroesophageal reflux disease without esophagitis; Translations: [Gastro-esophageal reflux disease without esophagitis] Onset: 4 05-25-2023 Chronic Essential hypertension (20 sources) Essential hypertension; Translations: [Essential (primary) hypertension] Onset: 6 Chronic Genitourinary congenital anomalies (3 sources) Multiple congenital cysts of kidney; Translations: [Congenital multiple renal cysts] Chronic Hemorrhoids (20 sources) Internal hemorrhoids; Translations: [Other hemorrhoids] 02-23-2006 Episodic Hyperplasia of prostate (20 sources) Benign prostatic hyperplasia; Translations: [Benign prostatic hyperplasia without lower urinary tract symptoms] Onset: 6 09-06-2016 Chronic Neoplasms of unspecified nature or uncertain behavior (10 sources) Polyclonal gammopathy; 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] Onset: 4 Chronic Other diseases of bladder and urethra (20 sources) Bladder neck obstruction; Translations: [Bladder-neck obstruction] Onset: 6 08-21-2005 Chronic Other diseases of kidney and ureters (3 sources) Hyperparathyroidism due to renal insufficiency; Translations: [Secondary hyperparathyroidism of renal origin] Chronic Other diseases of kidney and ureters (20 sources) Nephrocalcinosis; Translations: [Other specified disorders of kidney and ureter] Onset: 3 10-07-2012 Chronic Other gastrointestinal disorders (2 sources) Diarrhea; Translations: [Diarrhea, unspecified] Episodic Other lower respiratory disease (1 source) Cough; Translations: [Acute cough] 09-18-2022 Episodic Other male genital disorders (1 source) Male erectile dysfunction, unspecified; Translations: [Impotence of organic origin] Chronic Other male genital disorders (2 sources) Secondary erectile dysfunction; Translations: [Male erectile dysfunction, unspecified] Chronic Other upper respiratory disease (1 source) Seasonal allergy; Translations: [Other seasonal allergic rhinitis] Chronic Pulmonary heart disease (1 source) Acute pulmonary embolism; Translations: [Other pulmonary embolism without acute cor pulmonale] Episodic Residual codes; unclassified (1 source) Bilateral lower limb edema; Translations: [Localized edema] Episodic Syncope (20 sources) Syncope and collapse; Translations: [Syncope and collapse] Onset: 9 06-25-2018 Episodic Past or Other Problems Problem Classification Problem Date Documented Da te Episodic/Chronic Genitourinary symptoms and ill-defined conditions (20 sources) Incomplete emptying of bladder; Translations: [Retention of urine, unspecified] Onset: 08-19-2012 08-19-2012 Episodic Neoplasms of unspecified nature or uncertain behavior (20 sources) Benign neoplasm of pancreas; Translations: [Neoplasm of unspecified behavior of digestive system] Onset: 06-22-2014 06-22-2014 Episodic Other and unspecified benign neoplasm (20 sources) Benign neoplasm of colon; Translations: [Benign neoplasm of colon, unspecified] Onset: 02-14-2006 02-14-2006 Episodic Other diseases of kidney and ureters (20 sources) Cyst of kidney; Translations: [Cyst of kidney, acquired] Onset: 05-30-2013 Episodic Other diseases of kidney and ureters (20 sources) Renal impairment; Translations: [Disorder of kidney and ureter, unspecified] Onset: 08-21-2012 08-21-2012 Episodic Other screening for suspected conditions (not mental disorders or infectious disease) (20 sources) Raised prostate specific antigen; Translations: [Elevated prostate specific antigen [PSA]] Onset: 08-21-2005 08-21-2005 Episodic Results Test Name Value Interpretation Reference Range Facility [facility] 01-14-2024 NOHELIA Telephone ([place]) -------- QIAN PINK ([id number]) 1940 M Date Time Provider Department 01/14/24 GARY KELLY During your visit today, we recorded the following information about you: Gary Kelly, 01/14/2024 1:23 PM Signed Can let him know the recent CT scan showed his bones still look good. Can follow-up next year as scheduled. Ninfa Bryson LPN 01/14/2024 1:41 PM Signed Spoke with pts. , informed CT looks good, F/U in 1 year as scheduled. Also sent information to pt. Via my chart. Ninfa Bryson LPN Allergies As of Date: 01/14/2024 Noted Allergy Reaction LISINOPRIL 11/24/2022 5 - Intolerance Comments: Victoriano Cough Date Reviewed: 12/31/2023 Reviewed by: Keon Mendez MA - Fully Assessed Reason for Visit: Results [95] Prescriptions as of 01/14/2024 - cetirizine (ZYRTEC) 10 mg tablet Take 1 tablet by mouth once daily. - doxazosin (CARDURA) 4 mg tablet Take 1 tablet by mouth daily at bedtime. - amLODIPine (NORVASC) 5 mg tablet Take 1 tablet by mouth once daily. - pantoprazole DR (PROTONIX) 40 mg tablet Take 1 tablet by mouth once daily. - blood sugar diagnostic (FREESTYLE LITE STRIPS) test strip Test blood sugar(s) 1 times daily. Dx: Type 2 DM - Controlled E11.9 Insulin: No - Tadalafil (CIALIS) 20 mg tablet Take 1 tablet by mouth as needed. Take 30-60 minutes prior to sexual activity - losartan (COZAAR) 50 mg tablet Take 1 tablet by mouth every afternoon. - fluticasone (FLONASE) 50 mcg/actuation nasal spray Use 2 Sprays in each nostril once daily. Rinse mouth after use. - simvastatin (ZOCOR) 20 mg tablet Take 1 tablet by mouth daily at bedtime. - ergocalciferol, vitamin D2, (VITAMIN D2 ORAL) Take 2 capsules by mouth once daily. - Aspirin 81 mg Tab Take 81 mg by mouth once daily. - MULTIVITAMIN TAB Take one(1) tablet daily. Problem List As Of Date 01/14/2024 Noted Resolved BLADDER NECK OBSTRUCTION [N32.0] 08/21/2005 Benign non-nodular prostatic hyperplasia withou*08/21/2005 ELEVATED PROSTATE SPECIFIC ANTIGEN [R97.20] 08/21/2005 POLYP COLON, tubular adenoma [D12.6] 02/14/2006 BENIGN HYPERTENSION [I10] 02/14/2006 Type 2 diabetes mellitus without complication, *02/14/2006 INT HEMORRHOID W/O COMPL [K64.8] Hyperlipidemia, unspecified [E78.5] 10/02/2006 Urinary retention with incomplete bladder empty*08/19/2012 Enuresis [F98.0] 08/19/2012 Renal insufficiency [N28.9] 08/21/2012 BPH with obstruction/lower urinary tract sympto*10/07/2012 Renal calcification [N28.89] 10/07/2012 Renal cyst [N28.1] 05/30/2013 IPMN (intraductal papillary mucinous neoplasm) *06/22/2014 First degree atrioventricular block [I44.0] 06/25/2018 Syncope and collapse [R55] 06/25/2018 Syncope [R55] CKD (chronic kidney disease) stage 3, GFR 30-59*06/06/2019 Type 2 diabetes mellitus with stage 3 chronic k*05/25/2023 Encounter Status:Closed by NINFA BRYSON on 01/14/24 [address] [facility] [address] WB SKULL TO KNEE WO IVCON on 01-12-2024 CT WB SKULL TO KNEE WO IVCON * * *Final Report* * * DATE OF EXAM: Jan 12 2024 3:33PM [facility] 2096 - CT WB SKULL TO KNEE WO IVCON / PROCEDURE REASON: Monoclonal gammopathy * * * * Physician Interpretation * * * * Examination: Whole-Body Low Dose CT Without Contrast 01/12/2024 3:33 PM History: 83 years old Male with monoclonal gammopathy. Technique: Low dose whole body CT protocol was acquired in the axial plane without contrast from the vertex to the mid tibial diaphysis. MQ: [id number] CT Dose-Length Product (DLP): 335.[address] Dose Reduction Employed: Automated exposure control(AEC) and iterative recon Comparison: ... RESULT: Please note that this low dose non-contrast examination with free breathing technique is limited for detection of some intrathoracic, solid abdominal organ, and vascular pathologies. Additionally, study is insensitive for detection of diffuse pattern of myelomatous marrow infiltration. OSSEOUS STRUCTURES: Counting reference: Lumbosacral junction. For the purposes of this report, Calvarium: There is no well circumscribed lytic lesion measuring 5 mm or greater. There is near complete opacification the left maxillary sinus. Spine: There is no well circumscribed lytic lesion measuring 5 mm or greater. Degenerative changes and the cervical thoracic and lumbar spine. Vertebral body heights are preserved. There are degenerative changes . Upper extremities: There is no well circumscribed lytic lesion measuring 5 mm or greater. There are no suspicious findings noted in the intramedullary cavities. Ribs/Sternum: There is no well circumscribed lytic lesion measuring 5 mm or greater. Bony pelvis: : There is no well circumscribed lytic lesion measuring 5 mm or greater. Lower extremities: There is no well circumscribed lytic lesion measuring 5 mm or greater. There are no suspicious findings noted in the intramedullary cavities. NON-OSSEOUS STRUCTURES Soft tissues: No soft tissue mass. Head/neck: Limited low dose evaluation of intra-cranial structures show No acute intracranial process.. No pathologically enlarged cervical adenopathy. CHEST: Lines, tubes, and devices: None. Thoracic inlet, heart, and mediastinum: No lymphadenopathy in the axillary, mediastinal, or hilar regions within limitations of non-contrast exam. No gross cardiac enlargement or pericardial effusion. Chest wall is unremarkable. Mild coronary artery atherosclerotic calcifications are noted, although the study is not optimized for coronary assessment. Lung parenchyma and pleura: No consolidation. No suspicious pulmonary nodule is noted within limitations of reduced dose and free breathing technique. No pleural effusion. Central airways are patent. Small partially calcified right lung nodule measuring 5 mm likely calcified granuloma (4:473). ABDOMEN/Pelvis: The unenhanced appearance of the liver, spleen, adrenal glands, and pancreas are unremarkable. Large renal cysts bilaterally measuring 14 cm in diameter on the left and 11 cm on the right as noted on recent renal ultrasound. Left renal calculi. No hydroureteronephrosis. No dilated bowel. Diverticulosis. No lymphadenopathy by size criteria. Scattered atherosclerotic calcifications without aneurysmal dilatation. Cholecystectomy clips. Unremarkable unenhanced appearance of pelvic organs and urinary bladder. IMPRESSION: 1. No CT evidence of multiple myeloma. 2. Large bilateral renal cysts. Campus Rep: [facility] Transcribe Date/Time: Jan 14 2024 11:27A Dictated by : INDIANA NEVAREZ MD This examination was interpreted and the report reviewed and electronically signed by: INDIANA NEVAREZ MD on Jan 14 2024 11:40AM EST [id number] [facility] CNOVSPon 12-31-2023 CNOVSP Visit (SP) Office ([place]) -------- QIAN PINK ([id number]) 1940 M Date Time Provider Department 12/31/23 2:30 PM GARY KELLY During your visit today, we recorded the following information about you: Temperature Pulse Blood pressure Weight 98.2 degrees 53/minute 151/77 86.6 kg Gary Kelly DO 12/31/2023 2:52 PM Signed HPI: The patient is a 83-year-old gentleman with a past medical history significant for hypertension, hyperlipidemia, first-degree AV block, colon polyps, BPH, CKD stage III, type 2 diabetes, 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 No MS pain. No symptoms of sensory neuropathy. Presents for ongoing hematologic management. Interim history: He offers no complaints today. No acute illnesses in the last year. PAST MEDICAL HISTORY Diagnosis Date Benign neoplasm of colon Bronchitis Diabetes mellitus, type 2 (HCC) diet controlled Diverticulosis of small intestine (without mention of hemorrhage) First degree atrioventricular block Hypertensive kidney disease, benign Internal hemorrhoids without mention of complication Pure hypercholesterolemia Sinusitis SVT (supraventricular tachycardia) (HCC) Syncope PAST SURGICAL HISTORY Procedure Laterality Date COLONOSCOPY FLX DX W/COLLJ SPEC WHEN PFRMD 03/18/2001 Colonoscopy COLONOSCOPY FLX DX W/COLLJ SPEC WHEN PFRMD 10/24/2012 Colonoscopy COLONOSCOPY W/BIOPSY SINGLE/MULTIPLE 04/24/2006 CYSTOURETHROSCOPY 08/21/2002 Cystoscopy; Dr. Ortiz Meza. ECHOCARDIOGRAM 05/23/2018 normal LV systolic fxn; LVEF 65%; stage I diastolic dysfxn; no substantial valvular abnormalities LAPAROSCOPY SURG CHOLECYSTECTOMY Cholecystectomy, lap REMV CATARACT EXTRACAP,INSERT LENS Bilateral 06/2023 Dr. Fish STRESS TEST EXERCISE-NUCLEAR 05/24/2018 Barrie protocol 8 min 46 sec; 104% MPHR; 10.1 METs; narrow complex tachycardia in late peak and early recovery stages, 140s bpm TRURL ELECTROSURG RESCJ PROSTATE BLEED COMPLETE 10/2012 TURP ALLERGIES Allergen Reactions Lisinopril Intolerance Victoriano Cough Current Outpatient Medications Medication Sig cetirizine (ZYRTEC) 10 mg tablet Take 1 tablet by mouth once daily. doxazosin (CARDURA) 4 mg tablet Take 1 tablet by mouth daily at bedtime. amLODIPine (NORVASC) 5 mg tablet Take 1 tablet by mouth once daily. Tadalafil (CIALIS) 20 mg tablet Take 1 tablet by mouth as needed. Take 30-60 minutes prior to sexual activity losartan (COZAAR) 50 mg tablet Take 1 tablet by mouth every afternoon. fluticasone (FLONASE) 50 mcg/actuation nasal spray Use 2 Sprays in each nostril once daily. Rinse mouth after use. (Patient taking differently: Use 2 Sprays in each nostril as needed. Rinse mouth after use.) simvastatin (ZOCOR) 20 mg tablet Take 1 tablet by mouth daily at bedtime. ergocalciferol, vitamin D2, (VITAMIN D2 ORAL) Take 2 capsules by mouth once daily. Aspirin 81 mg Tab Take 81 mg by mouth once daily. MULTIVITAMIN TAB Take one(1) tablet daily. (Patient taking differently: Take 1 tablet by mouth once daily.) pantoprazole DR (PROTONIX) 40 mg tablet Take 1 tablet by mouth once daily. (Patient not taking: Reported on 12/31/2023) blood sugar diagnostic (FREESTYLE LITE STRIPS) test strip Test blood sugar(s) 1 times daily. Dx: Type 2 DM - Controlled E11.9 Insulin: No No current facility-administered medications for this visit. Social History Tobacco Use Smoking status: Former Current packs/day: 0.00 Average packs/day: 0.5 packs/day for 10.0 years (5.0 ttl pk-yrs) Types: Cigarettes Start date: 1968 Quit date: 1978 Years since quittin.7 Smokeless tobacco: Never Tobacco comments: quit 50 years ago Vaping Use Vaping status: Never Used Substance Use Topics Alcohol use: No Drug use: No Family History Problem Relation Age of Onset Stroke Mother dm Hypertension Mother Diabetes Mother Heart disease Mother Heart Father dm Heart disease Father Diabetes Father Diabetes Sister Diabetes Sister Heart Brother dm Diabetes Brother other (brain cancer) Brother dm Social History Tobacco Use Smoking status: Former Current packs/day: 0.00 Average packs/day: 0.5 packs/day for 10.0 years (5.0 ttl pk-yrs) Types: Cigarettes Start date: 1968 Quit date: 1978 Years since quittin.7 Smokeless tobacco: Never Tobacco comments: quit 50 years ago Vaping Use Vaping status: Never Used Substance Use Topics Alcohol use: No Drug use: No Family History Problem Relation Age of Onset Stroke Mother dm Hypertension Mother Diabetes Mother Heart disease Mother Heart Father dm Heart disease Father Diabetes Father Diabetes Sister Diabetes Sister Heart Brother dm Diabetes Brother other (brain cancer) Brother dm PHYSICAL EXAM: Vitals: Blood pressure 151/77, pulse (!) 53, temperature 36.8 ?C (98.2 ?F), temperature sourc (more content not included)... Normal [facility] B2 Microglob SerPl-mCncon Wqoj-4-Liawjuqoufwv n [Mass/Vol] 4.0 ug/mL High <3.1 [facility] Comment on above: Order Comment: Speci men Type: URINE SPECIMEN Ordering Facility: [facility] Address: [address] [place] [address] Result Comment: Beta -2 Microglobulin test is performed using the [employer] immunoturbidimetric method. Results obtained with different methods or kits cannot be used interchangeably. Performed By: #### L [id number] #### [facility] CLIA [id number] [address] [place], [place] [address] [address] [place] CBC W Auto Differential pane l (Bld)on 12-24-2023 Basophils (Bld) [#/Vol] 10*3/uL Normal <0.11 [facility] Comment on above: Order Comment: Speci men Type: BLOOD SPECIMENOrdering Facility: [facility] Address: [address] [place] [address] Performed By: #### 5 7021-8 ####[facility] COUNTYWNCLIA [id number] [place] [address] [place] Basophils/100 WBC (Bld) 0.4 % Normal [facility] Comment on above: Order Comment: Speci men Type: BLOOD SPECIMENOrdering Facility: [facility] Address: [address] [place] [address] Performed By: #### 5 7021-8 ####[facility] [id number] [place] [address] [place] Differential cell count method Nom (Bld) Auto Normal [facility] Comment on above: Order Comment: Speci men Type: BLOOD SPECIMENOrdering Facility: [facility] Address: [address] [place] [address] Performed By: #### 5 7021-8 ####[facility] MILLWNCLIA [id number] [place] [address] [place] Eosinophils (Bld) [#/Vol] 0.23 10*3/uL Normal <0.46 [facility] Comment on above: Order Comment: Speci men Type: BLOOD SPECIMENOrdering Facility: [facility] Address: [address] [place] [address] Performed By: #### 5 7021-8 ####[facility] [id number] [place] [address] [place] Eosinophils/100 WBC (Bld) 4.6 % Normal [facility] Comment on above: Order Comment: Speci men Type: BLOOD SPECIMENOrdering Facility: [facility] Address: [address] [place] [address] Performed By: #### 5 7021-8 ####[facility] [id number] [place] [address] [place] Erythrocyte distribution width (RBC) [Ratio] 13.7 % Normal 11.5-15.0 [facility] Comment on above: Order Comment: Speci men Type: BLOOD SPECIMENOrdering Facility: [facility] Address: [address] [place] [address] Performed By: #### 5 7021-8 ####[facility] [id number] [place] [address] [place] Hematocrit (Bld) [Volume fraction] 41.3 % Normal 39.0-51.0 [facility] Comment on above: Order Comment: Speci men Type: BLOOD SPECIMENOrdering Facility: [facility] Address: [address] [place] [address] Performed By: #### 5 7021-8 ####[facility] [id number] [place] [address] [place] Hemoglobin (Bld) [Mass/Vol] 13.5 g/dL Normal 13.0-17.0 [facility] Comment on above: Order Comment: Speci men Type: BLOOD SPECIMENOrdering Facility: [facility] Address: [address] [place] [address] Performed By: #### 5 7021-8 ####[facility] [id number] [place] [address] [place] Immature granulocytes (Bld) [#/Vol] 10*3/uL Normal <0.10 [facility] Comment on above: Order Comment: Speci men Type: BLOOD SPECIMENOrdering Facility: [facility] Address: [address] [place] [address] Performed By: #### 5 7021-8 ####[facility] [id number] [place] [address] [place] Immature granulocytes/100 WBC (Bld) 0.4 % Normal [facility] Comment on above: Order Comment: Speci men Type: BLOOD SPECIMENOrdering Facility: [facility] Address: [address] [place] [address] Performed By: #### 5 7021-8 ####[facility] [id number] [place] [address] [place] Lymphocytes (Bld) [#/Vol] 0.79 10*3/uL Low 1.00-4.00 [facility] Comment on above: Order Comment: Speci men Type: BLOOD SPECIMENOrdering Facility: [facility] Address: [address] [place] [address] Performed By: #### 5 7021-8 ####[facility] [id number] [place] [address] [place] Lymphocytes/100 WBC (Bld) 15.9 % Normal [facility] Comment on above: Order Comment: Speci men Type: BLOOD SPECIMENOrdering Facility: [facility] Address: [address] [place] [address] Performed By: #### 5 7021-8 ####[facility]ITALLI [id number] [place] [address] [place] MCH (RBC) [Entitic mass] 28.0 pg Normal 26.0-34.0 [facility] Comment on above: Order Comment: Speci men Type: BLOOD SPECIMENOrdering Facility: [facility] Address: [address] [place] [address] Performed By: #### 5 7021-8 ####[facility] [id number] [place] [address] [place] MCHC (RBC) [Mass/Vol] 32.7 g/dL Normal 30.5-36.0 [facility] Comment on above: Order Comment: Speci men Type: BLOOD SPECIMENOrdering Facility: [facility] Address: [address] [place] [address] Performed By: #### 5 7021-8 ####[facility] [id number] [place] [address] [place] MCV (RBC) [Entitic vol] 85.7 fL Normal 80.0-100.0 [facility] Comment on above: Order Comment: Speci men Type: BLOOD SPECIMENOrdering Facility: [facility] Address: [address] [place] [address] Performed By: #### 5 7021-8 ####[facility] [id number] [place] [address] [place] Monocytes (Bld) [#/Vol] 0.38 10*3/uL Normal <0.87 [facility] Comment on above: Order Comment: Speci men Type: BLOOD SPECIMENOrdering Facility: [facility] Address: [address] [place] [address] Performed By: #### 5 7021-8 ####[facility] [id number] [place] [address] [place] Monocytes/100 WBC (Bld) 7.6 % Normal [facility] Comment on above: Order Comment: Speci men Type: BLOOD SPECIMENOrdering Facility: [facility] Address: [address] [place] [address] Performed By: #### 5 7021-8 ####[facility] [id number] [place] [address] [place] Neutrophils (Bld) [#/Vol] 3.54 10*3/uL Normal 1.45-7.50 [facility] Comment on above: Order Comment: Speci men Type: BLOOD SPECIMENOrdering Facility: [facility] Address: [address] [place] [address] Performed By: #### 5 7021-8 ####[facility] [id number] [place] [address] [place] Neutrophils/100 WBC (Bld) 71.1 % Normal [facility] Comment on above: Order Comment: Speci men Type: BLOOD SPECIMENOrdering Facility: [facility] Address: [address] [place] [address] Performed By: #### 5 7021-8 ####[facility] [id number] [place] [address] [place] Nucleated RBC (Bld) [#/Vol] 10*3/uL Normal <0.01 [facility] Comment on above: Order Comment: Speci men Type: BLOOD SPECIMENOrdering Facility: [facility] Address: [address] [place] [address] Performed By: #### 5 7021-8 ####[facility] [id number] [place] [address] [place] Nucleated RBC/100 WBC (Bld) [Ratio] 0.0 /100 WBC Normal [facility] Comment on above: Order Comment: Speci men Type: BLOOD SPECIMENOrdering Facility: [facility] Address: [address] [place] [address] Performed By: #### 5 7021-8 ####[facility]ITALNCL[facility] [id number] [place] [address] [place] Platelet mean volume (Bld) [Entitic vol] 9.9 fL Normal 9.0-12.7 [facility] Comment on above: Order Comment: Speci men Type: BLOOD SPECIMENOrdering Facility: [facility] Address: [address] [place] [address] Performed By: #### 5 7021-8 ####[facility] KISHANNCLIA [id number] [place] [address] [place] Platelets (Bld) [#/Vol] 162 10*3/uL Normal 150-400 [facility] Comment on above: Order Comment: Speci men Type: BLOOD SPECIMENOrdering Facility: [facility] Address: [address] [place] [address] Performed By: #### 5 7021-8 ####[facility] RADHAWEST HILLSNCLIA [id number] [place] [address] [place] RBC (Bld) [#/Vol] 4.82 10*6/uL Normal 4.20-6.00 [facility] Comment on above: Order Comment: Speci men Type: BLOOD SPECIMENOrdering Facility: [facility] Address: [address] [place] [address] Performed By: #### 5 7021-8 ####[facility]ITALNCL[facility] [id number] [place] [address] [place] WBC (Bld) [#/Vol] 4.98 10*3/uL Normal 3.70-11.00 [facility] Comment on above: Order Comment: Speci men Type: BLOOD SPECIMENOrdering Facility: [facility] Address: [address] [place] [address] Performed By: #### 5 7021-8 ####[facility]CL[facility] [id number] [place] [address] [place] Comprehensive metabolic 2000 panelon 12-24-2023 Albumin [Mass/Vol] 4.5 g/dL Normal 3.9-4.9 [facility] Comment on above: Order Comment: Speci men Type: BLOOD SPECIMENOrdering Facility: [facility] Address: [address] [place] [address] Performed By: #### 2 532-0, 34754-1 ####[facility] SHI MILLTOWNCLIA [id number] [address] [place] ALP [Catalytic activity/Vol] 51 U/L Normal 38-113 [facility] Comment on above: Order Comment: Speci men Type: BLOOD SPECIMENOrdering Facility: [facility] Address: [address] [place] [address] Performed By: #### 2 532-0, 39195-9 ####[facility] SH[facility] MILLTOWNCLIA [id number] [place] [address] [place] ALT [Catalytic activity/Vol] 13 U/L Normal 10-54 [facility] Comment on above: Order Comment: Speci men Type: BLOOD SPECIMENOrdering Facility: [facility] Address: [address] [place] [address] Performed By: #### 2 532-0, 34117-4 ####[facility] MILLTOWNCLIA [id number] [place] [address] [place] Anion gap [Moles/Vol] 11 mmol/L Normal 8-15 [facility] Comment on above: Order Comment: Speci men Type: BLOOD SPECIMENOrdering Facility: [facility] Address: [address] [place] [address] Performed By: #### 2 532-0, 16564-5 ####[facility] SH[facility] MILLTOWNCLIA [id number] [place] [address] [place] AST [Catalytic activity/Vol] 16 U/L Normal 14-40 [facility] Comment on above: Order Comment: Speci men Type: BLOOD SPECIMENOrdering Facility: [facility] Address: [address] [place] [address] Performed By: #### 2 532-0, 79050-0 ####[facility] MILLTOWNCLIA [id number] [place] [address] [place] Bilirubin [Mass/Vol] 0.9 mg/dL Normal 0.2-1.3 [facility] Comment on above: Order Comment: Speci men Type: BLOOD SPECIMENOrdering Facility: [facility] Address: [address] [place] [address] Performed By: #### 2 532-0, 03788-5 ####[facility] MILLWNCLIA [id number] [place] [address] [place] Calcium [Mass/Vol] 9.8 mg/dL Normal 8.5-10.2 [facility] Comment on above: Order Comment: Speci men Type: BLOOD SPECIMENOrdering Facility: [facility] Address: [address] [place] [address] Performed By: #### 2 532-0, 86874-4 ####[facility]IA [id number] [place] [address] [place] Chloride [Moles/Vol] 107 mmol/L Normal 98-107 [facility] Comment on above: Order Comment: Speci men Type: BLOOD SPECIMENOrdering Facility: [facility] Address: [address] [place] [address] Performed By: #### 2 532-0, 42755-9 ####[facility] MILLWNCLIA [id number] [place] [address] [place] CO2 [Moles/Vol] 21 mmol/L Low 22-30 [facility] Comment on above: Order Comment: Speci men Type: BLOOD SPECIMENOrdering Facility: [facility] Address: [address] [place] [address] Performed By: #### 2 532-0, 24819-4 ####[facility] MILLWEST HILLSNCLIA [id number] [place] [address] [place] Creatinine [Mass/Vol] 1.55 mg/dL High 0.73-1.22 [facility] Comment on above: Order Comment: Abdi james Type: BLOOD SPECIMENOrdering Facility: [facility] Address: [address] [place] [address] Performed By: #### 2 532-0, 93393-2 ####[facility]ITALNCLI [id number] [place] [address] [place] Creatinine and Glomerular filtration rate.predicted panel (S/P/Bld) 44 mL/min/1.73m??? Low >=60 [facility] Comment on above: Order Comment: Abdi james Type: BLOOD SPECIMENOrdering Facility: [facility] Address: [address] [place] [address] Result Comment: Yuli mated Glomerular Filtration Rate (eGFR) is calculated using the 2020 CKD-EPI creatinine equation. This equation utilizes serum creatinine, sex, and age as parameters. The creatinine assay has traceable calibration to isotope dilution-mass spectrometry. Refer to KDIGO guidelines for clinical interpretation. In patients with unstable renal function, e.g. those with acute kidney injury, the eGFR may not accurately reflect actual GFR. Performed By: #### 2 532-0, 70237-4 ####[facility]ITALNCLIA [id number] [place] [address] [place] Glucose [Mass/Vol] 112 mg/dL High 74-99 [facility] Comment on above: Order Comment: Abdi james Type: BLOOD SPECIMENOrdering Facility: [facility] Address: [address] [place] [address] Result Comment: The [place] [employer] (ADA) provides guidance for cutoff values for fasting glucose and random glucose. The ADA defines fasting as no caloric intake for at least 8 hours. Fasting plasma glucose results between 100 to 125 mg/dL indicate increased risk for diabetes (prediabetes). Fasting plasma glucose results greater than or equal to 126 mg/dL meet the criteria for diagnosis of diabetes. In the absence of unequivocal hyperglycemia, results should be confirmed by repeat testing. In a patient with classic symptoms of hyperglycemia or hyperglycemic crisis, random plasma glucose results greater than or equal to 200 mg/dL meet the criteria for diagnosis of diabetes. Reference: Standards of Medical Care in Diabetes 2016, [place] [employer]. Diabetes Care. 2016.39(Suppl 1). Performed By: #### 2 532-0, 47837-5 ####[facility] [id number] [place] [address] [place] Potassium [Moles/Vol] 4.2 mmol/L Normal 3.7-5.1 [facility] Comment on above: Order Comment: Speci men Type: BLOOD SPECIMENOrdering Facility: [facility] Address: [address] [place] [address] Performed By: #### 2 532-0, 30348-4 ####[facility] [id number] [place] [address] [place] Protein [Mass/Vol] 7.2 g/dL Normal 6.3-8.0 [facility] Comment on above: Order Comment: Speci men Type: BLOOD SPECIMENOrdering Facility: [facility] Address: [address] [place] [address] Performed By: #### 2 532-0, 57045-2 ####[facility] [id number] [place] [address] [place] Sodium [Moles/Vol] 139 mmol/L Normal 136-144 [facility] Comment on above: Order Comment: Speci men Type: BLOOD SPECIMENOrdering Facility: [facility] Address: [address] [place] [address] Performed By: #### 2 532-0, 01700-1 ####[facility]ITAL[facility]CL[facility] [id number] [place] [address] [place] Urea nitrogen [Mass/Vol] 34 mg/dL High 9-24 [facility] Comment on above: Order Comment: Speci men Type: BLOOD SPECIMENOrdering Facility: [facility] Address: [address] [place] [address] Performed By: #### 2 532-0, 49326-5 ####[facility] [id number] [place] [id number] [facility] [place] IMMUNOFIXATION SCREEN, SERUM on 12-24-2023 INTERPRETATION (MPA) Normal [facility] Comment on above: Order Comment: Speci men Type: BLOOD SPECIMENOrdering Facility: [facility] Address: [address] [place] [address] Result Comment: Atyp ical restricted bands are present in the IgG and kappa regions. Consistent with IgG kappa monoclonal gammopathy. Performed By: #### I FESC ####[facility] LABIA [id number] [address] [place] MPA RESULT M protein is present. Abnormal No M p rotein is identified. [facility] Comment on above: Order Comment: Speci men Type: BLOOD SPECIMENOrdering Facility: [facility] Address: [address] [place] [address] Performed By: #### I FESC ####[facility] LABIA [id number] [address] [place] STAFF REVIEW ([facility]) Reviewed by Dr. Eliza Mclaughlin MD Normal [facility] Comment on above: Order Comment: Speci men Type: BLOOD SPECIMENOrdering Facility: [facility] Address: [address] [place] [address] Performed By: #### I FESC ####[facility] LABIA [id number] [place] [id number] [place] IMMUNOGLOBULINS,IGG,IGA,IGMo n 12-24-2023 IgA [Mass/Vol] 131 mg/dL Normal 70-400 [facility] Comment on above: Order Comment: Speci men Type: URINE SPECIMEN [facility] Address: [address] [place] [address] Performed By: #### L [id number] #### [facility] CLIA [id number] [address] [place] [address] [place] IgG [Mass/Vol] 1350 mg/dL Normal 700-1600 [facility] Comment on above: Order Comment: Speci men Type: URINE SPECIMEN [facility] Address: [address] [place] [address] Performed By: #### L [id number] #### [facility] CLIA [id number] [address] [place] [address] [place] IgM [Mass/Vol] mg/dL Low 40-230 [facility] Comment on above: Order Comment: Speci men Type: URINE SPECIMEN [facility] Address: [address] [place] [address] Performed By: #### L [id number] #### [facility] CLIA [id number] [address] [place] [address] [place] KAPPA/CHRISTIE,FREE,SERon 2023 Immunoglobulin light chains.kappa.free (S) [Mass/Vol] 30.9 mg/L High 3.3-19.4 [facility] Comment on above: Order Comment: Speci men Type: BLOOD SPECIMENOrdering Facility: [facility] Address: [address] [place] [address] Result Comment: Rare ly, increased serum free light chains levels may not be detected or accurately quantified due to prozone phenomenon or in high viscosity samples using this immunoturbidimetric assay. Correlation with other laboratory results and clinical findings is recommended. The Wray Free Light Chain was performed using the Binding [employer] immunoturbidimetric method. Result obtained with different assay methods or kits cannot be used interchangeably. Performed By: #### K LFRS ####[facility] LABCLIA [id number] [place] [address] [place] Immunoglobulin light chains.kappa/Immuno globulin light chains.lambda (S) [Mass ratio] 1.03 Normal 0.26-1.65 [facility] Comment on above: Order Comment: Speci men Type: BLOOD SPECIMENOrdering Facility: [facility] Address: [address] [place] [address] Performed By: #### K LFRS ####[facility] LABCLIA [id number] [place] [address] [place] Immunoglobulin light chains.lambda.free [Mass/Vol] 29.9 mg/L High 5.7-26.3 [facility] Comment on above: Order Comment: Speci men Type: BLOOD SPECIMENOrdering Facility: [facility] Address: [address] [place] [address] Result Comment: Rare ly, increased serum free light chains levels may not be detected or accurately quantified due to prozone phenomenon or in high viscosity samples using this immunoturbidimetric assay. Correlation with other laboratory results and clinical findings is recommended. The Lambda Free Light Chain was performed using the Binding Site [employer] immunoturbidimetric method. Result obtained with different assay methods or kits cannot be used interchangeably. Performed By: #### K LFRS ####[facility] LABCLIA [id number] [place] [address] [place] LDH SerPl-cCncon 12-24-2023 LDH [Catalytic activity/Vol] 177 U/L Normal 135-225 [facility] Comment on above: Order Comment: Speci men Type: BLOOD SPECIMENOrdering Facility: [facility] Address: [address] [place] [address] Performed By: #### 2 532-0, 36989-8 ####[facility] [id number] [place] [address] [place] MONOCLONAL PROT UR W/INTERPo n 12-24-2023 INTERPRETATION (UMPA) Atypical restricted bands are present in the IgG and kappa regions. Consistent with IgG kappa monoclonal gammopathy. Normal [facility] Comment on above: Order Comment: Speci men Type: URINE SPECIMENOrdering Facility: [facility] Address: [address] [place] [address] Performed By: #### U RMPA ####[facility] LABIA [id number] [address] OF [place] STAFF REVIEW (UMPA) Reviewed by Dr. Eliza Mclaughlin MD Normal [facility] Comment on above: Order Comment: Speci men Type: URINE SPECIMENOrdering Facility: [facility] Address: [address] [place] [address] Performed By: #### U RMPA ####[facility] LABIA [id number] [place] [address] [place] UMPA RESULT M protein is present. Abnormal No M p rotein is identified. [facility] Comment on above: Order Comment: Speci men Type: URINE SPECIMENOrdering Facility: [facility] Address: [address] [place] [address] Performed By: #### U RMPA ####[facility] [id number] [address] [place] PROTEIN ELECTROPHORESIS SERU M (P)on 12-24-2023 Albumin [Mass/Vol] 4.26 g/dL Normal 3.43-5.41 [facility] Comment on above: Order Comment: Speci men Type: BLOOD SPECIMENOrdering Facility: [facility] Address: [address] [place] [address] Performed By: #### L [id number] ####[facility] LABIA [id number] [place] [address] [place] Alpha 1 globulin Elph [Mass/Vol] 0.19 g/dL Normal 0.18-0.43 [facility] Comment on above: Order Comment: Speci men Type: BLOOD SPECIMENOrdering Facility: [facility] Address: [address] [place] [address] Performed By: #### L [id number] ####[facility] LABIA [id number] [address] [place] [address] [place] Alpha 2 globulin Elph [Mass/Vol] 0.67 g/dL Normal 0.42-0.98 [facility] Comment on above: Order Comment: Speci men Type: BLOOD SPECIMENOrdering Facility: [facility] Address: [address] [place] [address] Performed By: #### L [id number] ####[facility] LABCLIA [id number] [place] [address] [place] Beta globulin Elph [Mass/Vol] 0.62 g/dL Normal 0.61-1.17 [facility] Comment on above: Order Comment: Speci men Type: BLOOD SPECIMENOrdering Facility: [facility] Address: [address] [place] [address] Performed By: #### L [id number] ####[facility] LABIA [id number] [place] [address] [place] Gamma globulin Elph [Mass/Vol] 1.16 g/dL Normal 0.53-1.51 [facility] Comment on above: Order Comment: Speci men Type: BLOOD SPECIMENOrdering Facility: [facility] Address: [address] [place] [address] Performed By: #### L [id number] ####[facility] LABIA [id number] [place] [address] [place] INTERPRETATION COMMENT FOR PROTEIN ELECTROPHORESIS See separate immunofixation report for characterization of monoclonal gammopathy. Normal [facility] Comment on above: Order Comment: Speci men Type: BLOOD SPECIMENOrdering Facility: [facility] Address: [address] [place] [address] Performed By: #### L [id number] ####[facility] LABIA [id number] [place] [address] [place] M-PROTEIN LOCATION Gamma Fraction 1 Normal [facility] Comment on above: Order Comment: Speci men Type: BLOOD SPECIMENOrdering Facility: [facility] Address: [address] [place] [address] Performed By: #### L [id number] ####[facility] LABCLIA [id number] [place] [address] [place] Protein Fractions [Interp] An M protein is identified on protein electrophoresis. Abnormal No definitive M protein is identified on protein electrophoresi s. [facility] Comment on above: Order Comment: Speci men Type: BLOOD SPECIMENOrdering Facility: [facility] Address: [address] [place] [address] Performed By: #### L [id number] ####[facility] LABCLIA [id number] [place] [address] [place] Protein.monoclonal Elph [Mass/Vol] 0.60 g/dL High <=0.00 [facility] Comment on above: Order Comment: Speci men Type: BLOOD SPECIMENOrdering Facility: [facility] Address: [address] [place] [address] Performed By: #### L [id number] ####[facility] LABCLIA [id number] [place] [address] [place] SPE STAFF REVIEW Reviewed by Dr. Eliza Mclaughlin MD [facility] Comment on above: Order Comment: Speci men Type: BLOOD SPECIMENOrdering Facility: [facility] Address: [address] [place] [address] Performed By: #### L [id number] ####[facility] LABCLIA [id number] [place] [address] [place] Prot SerPl-mCncon 12-24-2023 Protein [Mass/Vol] 6.9 g/dL Normal 6.3-8.0 [facility] Comment on above: Order Comment: Speci men Type: URINE SPECIMEN [facility] Address: [address] [place] [address] Performed By: #### L [id number] #### [facility] LAB CLIA [id number] [address] [place] [address] [place] Prot Ur-mCncon 12-24-2023 Protein (U) [Mass/Vol] 10 mg/dL Normal 0-20 [facility] Comment on above: Order Comment: Speci men Type: URINE SPECIMENOrdering Facility: [facility] Address: [address] [place] [address] Performed By: #### 2 888-6 ####[facility] LABCLIA [id number] [place] [address] [place] URINE PROTEIN ELECTROPHORESI S RANDOM (P)on 12-24-2023 Albumin Elph (U) [Mass fraction] 65.39 % Normal [facility] Comment on above: Order Comment: Speci men Type: URINE SPECIMEN [facility] Address: [address] [place] [address] Performed By: #### L [id number] #### [facility] LAB CLIA [id number] [address] [place] [address] [place] Alpha 1 globulin Elph (U) [Mass fraction] 2.45 % Normal [facility] Comment on above: Order Comment: Speci men Type: URINE SPECIMEN [facility] Address: [address] [place] [address] Performed By: #### L [id number] #### [facility] CLIA [id number] [address] [place] [address] [place] Alpha 2 globulin Elph (U) [Mass fraction] 9.54 % Normal [facility] Comment on above: Order Comment: Speci men Type: URINE SPECIMEN [facility] Address: [address] [place] [address] Performed By: #### L [id number] #### [facility] CLIA [id number] [address] [place] [address] [place] Beta globulin Elph (U) [Mass fraction] 14.08 % Normal [facility] Comment on above: Order Comment: Speci men Type: URINE SPECIMEN [facility] Address: [address] [place] [address] Performed By: #### L [id number] #### [facility] CLIA [id number] [address] [place] [address] [place] Gamma globulin Elph (U) [Mass fraction] 8.53 % Normal [facility] Comment on above: Order Comment: Speci men Type: URINE SPECIMEN [facility] Address: [address] [place] [address] Performed By: #### L [id number] #### [facility] CLIA [id number] [address] [place] [address] [place] INTERPRETATION COMMENT FOR PROTEIN ELECTROPHORESIS The atypical region is relatively poorly defined and may represent an unusual presentation of polyclonal immunoglobulins, but cannot rule out the presence of a low level M protein. If clinically indicated, monoclonal protein analysis and serum free light chain analysis are suggested to evaluate further for monoclonal gammopathy. Normal [facility] Comment on above: Order Comment: Speci men Type: URINE SPECIMEN [facility] Address: [address] [place] [address] Performed By: #### L [id number] #### [facility] CLIA [id number] [address] [place] [address] [place] Protein Fractions Elph Luis Manuel (U) [Interp] An atypical region of restricted mobility is identified on protein electrophoresis. Abnormal No definitive M protein is identified on protein electrophoresi s. [facility] Comment on above: Order Comment: Speci men Type: URINE SPECIMEN [facility] Address: [address] [place] [address] Performed By: #### L [id number] #### [facility] CLIA [id number] [address] [place] [address] [place] STAFF REVIEW (URINE ELECTRO) Reviewed by Dr. Mickie Mclaughlin MD Normal [facility] Comment on above: Order Comment: Speci men Type: URINE SPECIMEN [facility] Address: [address] [place] [address] Performed By: #### L [id number] #### [facility] CLIA [id number] [address] [place] [address] OF [facility] Heidi 12-06-2023 [facility] Telephone [facility] -------- QIAN PINK ([id number]) 1940 M Date Time Provider Department 12/06/23 ELIZABETH AVILA [facility] During your visit today, we recorded the following information about you: Elizabeth Avila APRN.CNP 12/06/2023 1:59 PM Signed The following approved medication requests have been transmitted electronically. Requested Prescriptions Signed Prescriptions Disp Refills cetirizine (ZYRTEC) 10 mg tablet 90 tablet 3 Sig: Take 1 tablet by mouth once daily. Authorizing Provider: ELIZABETH AVILA APRN.CNP Allergies As of Date: 12/06/2023 Noted Allergy Reaction LISINOPRIL 11/24/2022 5 - Intolerance Comments: Victoriano Cough Date Reviewed: 11/23/2023 Reviewed by: Rafael Ramirez APRN.CNP - Fully Assessed Reason for Visit: Refill Request [94] Order(s):cetirizine (ZYRTEC) 10 mg tabletTake 1 tablet by mouth once daily.Disp: 90 tabletRfl: 3 Prescriptions as of 12/06/2023 - cetirizine (ZYRTEC) 10 mg tablet Take 1 tablet by mouth once daily. - doxazosin (CARDURA) 4 mg tablet Take 1 tablet by mouth daily at bedtime. - amLODIPine (NORVASC) 5 mg tablet Take 1 tablet by mouth once daily. - pantoprazole DR (PROTONIX) 40 mg tablet Take 1 tablet by mouth once daily. - blood sugar diagnostic (FREESTYLE LITE STRIPS) test strip Test blood sugar(s) 1 times daily. Dx: Type 2 DM - Controlled E11.9 Insulin: No - Tadalafil (CIALIS) 20 mg tablet Take 1 tablet by mouth as needed. Take 30-60 minutes prior to sexual activity - losartan (COZAAR) 50 mg tablet Take 1 tablet by mouth every afternoon. - fluticasone (FLONASE) 50 mcg/actuation nasal spray Use 2 Sprays in each nostril once daily. Rinse mouth after use. - simvastatin (ZOCOR) 20 mg tablet Take 1 tablet by mouth daily at bedtime. - ergocalciferol, vitamin D2, (VITAMIN D2 ORAL) Take 2 capsules by mouth once daily. - Aspirin 81 mg Tab Take 81 mg by mouth once daily. - MULTIVITAMIN TAB Take one(1) tablet daily. Problem List As Of Date 12/06/2023 Noted Resolved BLADDER NECK OBSTRUCTION [N32.0] 08/21/2005 Benign non-nodular prostatic hyperplasia withou*08/21/2005 ELEVATED PROSTATE SPECIFIC ANTIGEN [R97.20] 08/21/2005 POLYP COLON, tubular adenoma [D12.6] 02/14/2006 BENIGN HYPERTENSION [I10] 02/14/2006 Type 2 diabetes mellitus without complication, *02/14/2006 INT HEMORRHOID W/O COMPL [K64.8] Hyperlipidemia, unspecified [E78.5] 10/02/2006 Urinary retention with incomplete bladder empty*08/19/2012 Enuresis [F98.0] 08/19/2012 Renal insufficiency [N28.9] 08/21/2012 BPH with obstruction/lower urinary tract sympto*10/07/2012 Renal calcification [N28.89] 10/07/2012 Renal cyst [N28.1] 05/30/2013 IPMN (intraductal papillary mucinous neoplasm) *06/22/2014 First degree atrioventricular block [I44.0] 06/25/2018 Syncope and collapse [R55] 06/25/2018 Syncope [R55] CKD (chronic kidney disease) stage 3, GFR 30-59*06/06/2019 Type 2 diabetes mellitus with stage 3 chronic k*05/25/2023 Prescriptions ordered this encounter Disp Refills Start End CETIRIZINE 10 MG TABLET 90 t* 3 12/06/2023 12/05/2024 Route: ORAL Sig: Take 1 tablet by mouth once daily. Medications Discontinued During This Encounter Prescriptions - cetirizine (ZYRTEC) 10 mg tablet (Discontinued) Take 1 tablet by mouth once daily. Encounter Status:Closed by ELIZABETH AVILA on 12/06/23 [facility] CNOVon 11-23-2023 CNOV Office Visit (FAMPWS ) -------- QIAN PINK ([id number]) 1940 M Date Time Provider Department 11/23/23 2:00 PM [facility] During your visit today, we recorded the following information about you: Pulse Respiration Blood pressure Weight 52/minute 16/minute 112/60 85.7 kg Rafael Ramirez APRN.DATA ANALYTICS ANALYST 11/23/2023 1:48 PM Signed Chief Complaint Patient presents with: Follow Up: 6 month HPI Qian Pink is a 82 year old male who presents here today for Chronic Medical Conditions. Patient here for follow-up exam. Here with . Reviewed labs with patient. Taking his medication as prescribed for type 2 diabetes, hyperlipidemia, hypertension, reflux. Following with nephrology for CKD stage III. GFR has ranged from 41-52 for the past few years. Most recently GFR 42. Only complaint is dizziness with bending over. BP at home can be up and down. Newest change was Cardura changed from 2 to 4 mg by urology. Following with urology for BPH Following with heme-onc for MGUS. Past medical history, appointments, medications, allergies reviewed. EXAM: BP 112/60 Pulse (!) 52 Resp 16 Wt 85.7 kg (189 lb) SpO2 98% BMI 27.06 kg/m? General Appearance: Well appearing, alert, in no acute distress, well-hydrated, well nourished.. Lungs: Lungs clear to auscultation. No wheezing, rhonchi, rales.. Heart: RRR without murmur, gallop, or rubs. No ectopy. Extremities: No deformities, edema, skin discoloration, clubbing or cyanosis. Good capillary refill. . Latest Ref Rng 11/16/2023 Protein, Total 6.3 - 8.0 g/dL 6.9 Albumin 3.9 - 4.9 g/dL 4.4 Calcium 8.5 - 10.2 mg/dL 9.7 Bilirubin, Total 0.2 - 1.3 mg/dL 1.1 Alkaline Phosphatase 38 - 113 U/L 52 AST 14 - 40 U/L 13 (L) ALT 10 - 54 U/L 12 Glucose 74 - 99 mg/dL 121 (H) BUN 9 - 24 mg/dL 34 (H) Creatinine 0.73 - 1.22 mg/dL 1.61 (H) Sodium 136 - 144 mmol/L 141 Potassium 3.7 - 5.1 mmol/L 4.3 Chloride 98 - 107 mmol/L 108 (H) CO2 22 - 30 mmol/L 22 Anion Gap 8 - 15 mmol/L 11 eGFR >=60 mL/min/1.73m? 42 (L) Cholesterol, Total <200 mg/dL 140 Triglyceride <150 mg/dL 49 HDL Cholesterol >39 mg/dL 51 Non HDL Cholesterol <130 mg/dL 89 Fasting Time hrs 12 VLDL Cholesterol <30 mg/dL 10 TC:HDL Ratio <5.10 2.75 LDL Cholesterol <100 mg/dL 79 LDL:HDL Ratio <2.54 1.55 Hemoglobin A1C 4.3 - 5.6 % 5.9 (H) Estimated Average Glucose mg/dL 123 ASSESSMENT/PLAN: 1. Type 2 diabetes 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, without long-term current use of insulin, unspecified whether stage 3a or 3b CKD (HCC) - ICD9: 250.40, 585.3, ICD10: E11.22, N18.30 (primary diagnosis) - Controlled - Continue current medications - eGFR: 42 Stable - HEMOGLOBIN A1C - LIPID PANEL BASIC - COMPREHENSIVE METABOLIC PANEL - COMPLETE BLOOD COUNT AND DIFFERENTIAL - ALBUMIN/CREATININE RATIO, URINE 2. Stage 3b chronic kidney disease (HCC) - ICD9: 585.3, ICD10: N18.32 - Continue following with tufter operator. - COMPREHENSIVE METABOLIC PANEL - COMPLETE BLOOD COUNT AND DIFFERENTIAL 3. Hyperlipidemia, unspecified hyperlipidemia type - ICD9: 272.4, ICD10: E78.5 - Controlled - Continue current medications - Counseled on healthy diet and regular exercise - LIPID PANEL BASIC 4. Essential hypertension, benign - ICD9: 401.1, ICD10: I10 - Controlled - Decrease amlodipine to 2.5 mg for a few weeks. Mychart with update on symptoms blood pressure readings. - Recommend home blood pressure monitoring, to bring results to next visit - Encouraged sodium restriction, DASH or Mediterranean diet - Recommend regular aerobic exercise - COMPREHENSIVE METABOLIC PANEL - COMPLETE BLOOD COUNT AND DIFFERENTIAL - AMLODIPINE 2.5 MG TABLET 5. Gastroesophageal reflux disease without esophagitis - ICD9: 530.81, ICD10: K21.9 - Stable on protonix Rafael Ramirez APRN.CNP RTO in 6 months, sooner if needed. This note was partly generated using [employer] voice recognition dictation and may contain some misspelled or inaccurate words missed on review. Allergies As of Date: 11/23/2023 Noted Allergy Reaction LISINOPRIL 11/24/2022 5 - Intolerance Comments: Victoriano Cough Date Reviewed: 11/23/2023 Reviewed by: Rafael Ramirez APRN.DATA ANALYTICS ANALYST - Fully Assessed Reason for Visit: Follow Up [171] Cmt: 6 month Primary Visit Diagnosis:Type 2 diabetes 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, without long-term current use of insulin, unspecified whether stage 3a or 3b CKD (HCC) [E11.22, N18.30] Other Visit Diagnoses:Stage 3b chronic kidney disease (HCC) [N18.32] Hyperlipidemia, unspecified hyperlipidemia type [E78.5] Essential hypertension, benign [I10] Gastroesophageal reflux disease without esophagitis [K21.9] Order(s):cetirizine (ZYRTEC) 10 mg tabletTake 1 tablet by mouth once daily.Disp: 90 tabletRfl: 3 HEMOGLOBIN A1C [GTPNZ2R] Order #: [id number] FUTURE LIPID PANEL BASIC [SQLIPB] Order #: [id number] (more content not included)... Normal [facility] Comprehensive metabolic 2000 panelon 11-16-2023 Albumin [Mass/Vol] 4.4 g/dL Normal 3.9-4.9 [facility] Comment on above: Order Comment: Speci men Type: BLOOD SPECIMENOrdering Facility: [facility] Address: [address] [place] [address] Performed By: #### 2 4323-8 ####[facility] MILLTOWNCLIA [id number] [place] [address] [place] ALP [Catalytic activity/Vol] 52 U/L Normal 38-113 [facility] Comment on above: Order Comment: Speci men Type: BLOOD SPECIMENOrdering Facility: [facility] Address: [address] [place] [address] Performed By: #### 2 4323-8 ####[facility] MILLWNCLIA [id number] [place] [address] [place] ALT [Catalytic activity/Vol] 12 U/L Normal 10-54 [facility] Comment on above: Order Comment: Speci men Type: BLOOD SPECIMENOrdering Facility: [facility] Address: [address] [place] [address] Performed By: #### 2 4323-8 ####[facility] COUNTYWNCLIA [id number] [place] [address] [place] Anion gap [Moles/Vol] 11 mmol/L Normal 8-15 [facility] Comment on above: Order Comment: Speci men Type: BLOOD SPECIMENOrdering Facility: [facility] Address: [address] [place] [address] Performed By: #### 2 4323-8 ####[facility] COUNTYWNCLIA [id number] [place] [address] [place] AST [Catalytic activity/Vol] 13 U/L Low 14-40 [facility] Comment on above: Order Comment: Speci men Type: BLOOD SPECIMENOrdering Facility: [facility] Address: [address] [place] [address] Performed By: #### 2 4323-8 ####[facility] COUNTYWNCLIA [id number] [place] [address] [place] Bilirubin [Mass/Vol] 1.1 mg/dL Normal 0.2-1.3 [facility] Comment on above: Order Comment: Speci men Type: BLOOD SPECIMENOrdering Facility: [facility] Address: [address] [place] [address] Performed By: #### 2 4323-8 ####[facility] MILLTOWNCLIA [id number] [place] [address] [place] Calcium [Mass/Vol] 9.7 mg/dL Normal 8.5-10.2 [facility] Comment on above: Order Comment: Speci men Type: BLOOD SPECIMENOrdering Facility: [facility] Address: [address] [place] [address] Performed By: #### 2 4323-8 ####[facility] [id number] [place] [address] [place] Chloride [Moles/Vol] 108 mmol/L High 98-107 [facility] Comment on above: Order Comment: Speci men Type: BLOOD SPECIMENOrdering Facility: [facility] Address: [address] [place] [address] Performed By: #### 2 4323-8 ####[facility]IT[facility]IA [id number] [place] [address] [place] CO2 [Moles/Vol] 22 mmol/L Normal 22-30 [facility] Comment on above: Order Comment: Speci men Type: BLOOD SPECIMENOrdering Facility: [facility] Address: [address] [place] [address] Performed By: #### 2 4323-8 ####[facility] [id number] [place] [address] [place] Creatinine [Mass/Vol] 1.61 mg/dL High 0.73-1.22 [facility] Comment on above: Order Comment: Speci men Type: BLOOD SPECIMENOrdering Facility: [facility] Address: [address] [place] [address] Performed By: #### 2 4323-8 ####[facility] [id number] [place] [address] [place] Creatinine and Glomerular filtration rate.predicted panel (S/P/Bld) 42 mL/min/1.73m??? Low >=60 [facility] Comment on above: Order Comment: Abdi james Type: BLOOD SPECIMENOrdering Facility: [facility] Address: [address] [place] [address] Result Comment: Yuli mated Glomerular Filtration Rate (eGFR) is calculated using the 2020 CKD-EPI creatinine equation. This equation utilizes serum creatinine, sex, and age as parameters. The creatinine assay has traceable calibration to isotope dilution-mass spectrometry. Refer to KDIGO guidelines for clinical interpretation. In patients with unstable renal function, e.g. those with acute kidney injury, the eGFR may not accurately reflect actual GFR. Performed By: #### 2 4323-8 ####[facility] [id number] [place] [address] [place] Glucose [Mass/Vol] 121 mg/dL High 74-99 [facility] Comment on above: Order Comment: Abdi james Type: BLOOD SPECIMENOrdering Facility: [facility] Address: [address] [place] [address] Result Comment: The [place] [employer] (ADA) provides guidance for cutoff values for fasting glucose and random glucose. The ADA defines fasting as no caloric intake for at least 8 hours. Fasting plasma glucose results between 100 to 125 mg/dL indicate increased risk for diabetes (prediabetes). Fasting plasma glucose results greater than or equal to 126 mg/dL meet the criteria for diagnosis of diabetes. In the absence of unequivocal hyperglycemia, results should be confirmed by repeat testing. In a patient with classic symptoms of hyperglycemia or hyperglycemic crisis, random plasma glucose results greater than or equal to 200 mg/dL meet the criteria for diagnosis of diabetes. Reference: Standards of Medical Care in Diabetes 2016, [place] [employer]. Diabetes Care. 2016.39(Suppl 1). Performed By: #### 2 4323-8 ####[facility] MILLTOWNCLIA [id number] [place] [address] [place] Potassium [Moles/Vol] 4.3 mmol/L Normal 3.7-5.1 [facility] Comment on above: Order Comment: Speci men Type: BLOOD SPECIMENOrdering Facility: [facility] Address: [address] [place] [address] Performed By: #### 2 4323-8 ####[facility] COUNTYWNCLIA [id number] [place] [address] [place] Protein [Mass/Vol] 6.9 g/dL Normal 6.3-8.0 [facility] Comment on above: Order Comment: Speci men Type: BLOOD SPECIMENOrdering Facility: [facility] Address: [address] [place] [address] Performed By: #### 2 4323-8 ####[facility]IT[facility] [id number] [place] [address] [place] Sodium [Moles/Vol] 141 mmol/L Normal 136-144 [facility] Comment on above: Order Comment: Speci men Type: BLOOD SPECIMENOrdering Facility: [facility] Address: [address] [place] [address] Performed By: #### 2 4323-8 ####[facility] MILLWNCLIA [id number] [place] [address] [place] Urea nitrogen [Mass/Vol] 34 mg/dL High 9-24 [facility] Comment on above: Order Comment: Speci men Type: BLOOD SPECIMENOrdering Facility: [facility] Address: [address] [place] [address] Performed By: #### 2 4323-8 ####[facility]ITAL[facility]CL[facility] [id number] [place] [address] [place] HbA1c (Bld)on 11-16-2023 Average glucose Estimated from glycated hemoglobin (Bld) [Mass/Vol] 123 mg/dL Normal [facility] Comment on above: Order Comment: Abdi james Type: BLOOD SPECIMENOrdering Facility: [facility] Address: [address] [place] [address] Result Comment: eAG: (Estimated average glucose) is a calculated value from HgbA1c and is community service representative of the average blood glucose level in the last 2-3 month period. Performed By: #### 5 5454-3 ####[facility] LABCLIA [id number] [place] [address] [place] HbA1c (Bld) [Mass fraction] 5.9 % High 4.3-5.6 [facility] Comment on above: Order Comment: Adbi james Type: BLOOD SPECIMENOrdering Facility: [facility] Address: [address] [place] [address] Result Comment: Amer ican Diabetes Association guidelines indicate that patients with HgbA1c in the range 5.7-6.4% are at increased risk for development of diabetes, and intervention by lifestyle modification may be beneficial. HgbA1c greater or equal to 6.5% is considered diagnostic of diabetes. Performed By: #### 5 5454-3 ####[facility] LABCLIA [id number] [place] [address] [place] Lipid 1996 panelon 4 Cholesterol [Mass/Vol] 140 mg/dL Normal <200 [facility] Comment on above: Order Comment: Abdi james Type: BLOOD SPECIMENOrdering Facility: [facility] Address: [address] [place] [address] Result Comment: <200 mg/dL, Desirable 200-239 mg/dL, Borderline high >239 mg/dL, High Performed By: #### 2 4331-1 ####[facility] LABCLIA [id number] [address] STATES [place] [facility] [id number] [place] [place] Cholesterol in HDL [Mass/Vol] 51 mg/dL Normal >39 [facility] Comment on above: Order Comment: Abdi james Type: BLOOD SPECIMENOrdering Facility: [facility] Address: [address] [place] [address] Result Comment: 40-5 9 mg/dL, Acceptable >59 mg/dL, High: Negative risk factor for coronary heart disease <40 mg/dL, Low: Positive risk factor for coronary heart disease Performed By: #### 2 4331-1 ####[facility] LABCLIA [id number] [address] [id number] [address] [place] Cholesterol in LDL [Mass/Vol] 79 mg/dL Normal <100 [facility] Comment on above: Order Comment: Abdi james Type: BLOOD SPECIMENOrdering Facility: [facility] Address: [address] [place] [address] Result Comment: <100 mg/dL, Optimal 100-129 mg/dL, Near optimal/above optimal 130-159 mg/dL, Borderline high 160-189 mg/dL, High >189 mg/dL, Very high Secondary prevention optimal LDL Cholesterol levels are recommended to be < 70 mg/dL Performed By: #### 2 4331-1 ####[facility] LABCLIA [id number] [address] [id number] [address] [place] Cholesterol in LDL/Cholesterol in HDL [Mass ratio] 1.55 {ratio} Normal <2.54 [facility] Comment on above: Order Comment: Abdi james Type: BLOOD SPECIMENOrdering Facility: [facility] Address: [address] [place] [address] Result Comment: Refe rence: 1. National Cholesterol Education Program ATP III Guideline At-A-Glance Quick Desk Reference: National Heart, Lung, and Blood [place]. National Institutes of Health. 2001: NIH Publication No. 01-3305. 2. An International Atherosclerosis Society position paper: global recommendations for the management of dyslipidemia: executive summary, Atherosclerosis. 2014: 232(2):410-413. Performed By: #### 2 4331-1 ####[facility] LABCLIA [id number] [address] [id number] [place] [address] [place] Cholesterol in VLDL [Mass/Vol] 10 mg/dL Normal <30 [facility] Comment on above: Order Comment: Speci men Type: BLOOD SPECIMENOrdering Facility: [facility] Address: [address] [place] [address] Performed By: #### 2 4331-1 ####[facility] LABCLIA [id number] [address] [id number] [place] [address] [place] Cholesterol non HDL [Mass/Vol] 89 mg/dL Normal <130 [facility] Comment on above: Order Comment: Speci men Type: BLOOD SPECIMENOrdering Facility: [facility] Address: [address] [place] [address] Result Comment: <130 mg/dL, Optimal 130-159 mg/dL, Near optimal/above optimal 160-189 mg/dL, Borderline high 190-219 mg/dL, High >219 mg/dL, Very high Secondary prevention optimal non HDL Cholesterol levels are recommended to be <100 mg/dL Performed By: #### 2 4331-1 ####[facility] LABCLIA [id number] [address] [id number] [place] [address] [place] Cholesterol.total/C holesterol in HDL [Mass ratio] 2.75 {ratio} Normal <5.10 [facility] Comment on above: Order Comment: Speci men Type: BLOOD SPECIMENOrdering Facility: [facility] Address: [address] [place] [address] Performed By: #### 2 4331-1 ####[facility] LABCLIA [id number] [id number] [place] [address] [place] FASTING TIME 12 hrs Normal [facility] Comment on above: Order Comment: Speci men Type: BLOOD SPECIMENOrdering Facility: [facility] Address: [address] [place] [address] Performed By: #### 2 4331-1 ####[facility] LABCLIA [id number] [id number] [place] [address] [place] Triglyceride [Mass/Vol] 49 mg/dL Normal <150 [facility] Comment on above: Order Comment: Speci men Type: BLOOD SPECIMENOrdering Facility: [facility] Address: [address] [place] [address] Result Comment: <150 mg/dL, Normal 150-199 mg/dL, Borderline high 200-499 mg/dL, High >499 mg/dL, Very high Performed By: #### 2 4331-1 ####[facility] LABCLIA [id number] [address] [id number] [place] [address] [place] CNOVSPon 06-29-2023 CNOVSP Visit (SP) Office (HEMAWS) -------- QIAN PINK ([id number]) 1940 M Date Time Provider Department 06/29/23 1:30 PM GINGER KHAN During your visit today, we recorded the following information about you: Temperature Pulse Blood pressure Weight 98.7 degrees 59/minute 164/76 86.2 kg Ginger Khan 06/29/2023 2:25 PM Signed Qian Pink 1940 06/29/2023 HPI: The patient is a 81-year-old gentleman with a past medical history significant for hypertension, hyperlipidemia, first-degree AV block, colon polyps, BPH, CKD stage III, type 2 diabetes, 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 No MS pain. No symptoms of sensory neuropathy. Interval History: Mr. Pink presents today with his spouse for follow up of low risk IgG kappa MGUS. He reports feeling well overall. Denies new issues. No CASLILAS, dizziness. No new aches or pains, lumps or bumps. Denies SOB, CP, palpitations. BP runs better at home 150/60s. Had to cut back on some BP meds because he was becoming too hypotensive. Denies any changes in bowel or bladder habits. No bleeding. Follows with tufter operator. Appetite is good, energy level is stable. Denies neuropathy. Upcoming cataract surgery in July. Reviewed labs in detail today, cbc, light chains remain stable. Kidney function has improved. PAST MEDICAL HISTORY Diagnosis Date Benign neoplasm of colon Bronchitis Diabetes mellitus, type 2 (HCC) diet controlled Diverticulosis of small intestine (without mention of hemorrhage) First degree atrioventricular block Hypertensive kidney disease, benign Internal hemorrhoids without mention of complication Pure hypercholesterolemia Sinusitis SVT (supraventricular tachycardia) (HCC) Syncope PAST SURGICAL HISTORY Procedure Laterality Date COLONOSCOPY FLX DX W/COLLJ SPEC WHEN PFRMD 03/18/2001 Colonoscopy COLONOSCOPY FLX DX W/COLLJ SPEC WHEN PFRMD 10/24/12 Colonoscopy COLONOSCOPY W/BIOPSY SINGLE/MULTIPLE 04/24/2006 CYSTOURETHROSCOPY 08/21/2002 Cystoscopy; Dr. Ortiz Meza. ECHOCARDIOGRAM 05/23/2018 normal LV systolic fxn; LVEF 65%; stage I diastolic dysfxn; no substantial valvular abnormalities LAPAROSCOPY SURG CHOLECYSTECTOMY Cholecystectomy, lap STRESS TEST EXERCISE-NUCLEAR 05/24/2018 Barrie protocol 8 min 46 sec; 104% MPHR; 10.1 METs; narrow complex tachycardia in late peak and early recovery stages, 140s bpm TRURL ELECTROSURG RESCJ PROSTATE BLEED COMPLETE 10/2012 TURP ALLERGIES Allergen Reactions Lisinopril Intolerance Victoriano Cough Current Outpatient Medications Medication Sig amLODIPine (NORVASC) 5 mg tablet Take 1 tablet by mouth once daily. pantoprazole DR (PROTONIX) 40 mg tablet Take 1 tablet by mouth once daily. cetirizine (ZYRTEC) 10 mg tablet Take 1 tablet by mouth once daily. Tadalafil (CIALIS) 20 mg tablet Take 1 tablet by mouth as needed. Take 30-60 minutes prior to sexual activity losartan (COZAAR) 50 mg tablet Take 1 tablet by mouth every afternoon. fluticasone (FLONASE) 50 mcg/actuation nasal spray Use 2 Sprays in each nostril once daily. Rinse mouth after use. (Patient taking differently: Use 2 Sprays in each nostril as needed. Rinse mouth after use.) doxazosin (CARDURA) 2 mg tablet Take 1 tablet by mouth daily at bedtime. simvastatin (ZOCOR) 20 mg tablet Take 1 tablet by mouth daily at bedtime. ergocalciferol, vitamin D2, (VITAMIN D2 ORAL) Take 2 capsules by mouth once daily. Aspirin 81 mg Tab Take 81 mg by mouth once daily. MULTIVITAMIN TAB Take one(1) tablet daily. (Patient taking differently: Take 1 tablet by mouth once daily.) blood sugar diagnostic (FREESTYLE LITE STRIPS) test strip Test blood sugar(s) 1 times daily. Dx: Type 2 DM - Controlled E11.9 Insulin: No No current facility-administered medications for this visit. Social History Tobacco Use Smoking status: Former Packs/day: 0.50 Years: 10.00 Additional pack years: 0.00 Total pack years: 5.00 Types: Cigarettes Start date: 1968 Quit date: 1978 Years since quittin.2 Smokeless tobacco: Never Tobacco comments: quit 50 years ago Vaping Use Vaping Use: Never used Substance Use Topics Alcohol use: No Drug use: No Family History Problem Relation Age of Onset Stroke Mother dm Hypertension Mother Diabetes Mother Heart disease Mother Heart Father dm Heart disease Father Diabetes Father Diabetes Sister Diabetes Sister Heart Brother dm Diabetes Brother other (brain cancer) Brother dm Social History Tobacco Use Smoking status: Former Packs/day: 0.50 Years: 10.00 Additional pack years: 0.00 Total pack years: 5.00 Types: Cigarettes Start date: 1968 Quit date: 1978 Years since quittin.2 Smokeless tobacco: Never Tobacco comments: quit 50 years ago Vaping Use Vaping Use: Never used Substance Use Topics Alcohol use: No Drug use: No Fam (more content not included)... Normal [facility] MONOCLONAL PROT 24 UR W/INTE RPon 06-22-2023 INTERPRETATION (UMPA) Atypical restricted bands are present in the IgG and kappa regions. Consistent with IgG kappa monoclonal gammopathy. Normal [facility] Comment on above: Order Comment: Speci men Type: URINE SPECIMENOrdering Facility: [facility] Address: [address] [place] [address] Performed By: #### U 24MPA ####[facility] LABIA [id number] [address] [place] STAFF REVIEW (UMPA) Reviewed by Denia Kramer MD Normal [facility] Comment on above: Order Comment: Speci men Type: URINE SPECIMENOrdering Facility: [facility] Address: [address] [place] [address] Performed By: #### U 24MPA ####[facility] LABIA [id number] [place] [address] [place] UMPA RESULT M protein is present. Abnormal No M p rotein is identified. [facility] Comment on above: Order Comment: Speci men Type: URINE SPECIMENOrdering Facility: [facility] Address: [address] [place] [address] Performed By: #### U 24MPA ####[facility] LABIA [id number] [place] [address] [place] PROT ELEC UR 24HR W/M SPIKE (P)on 06-22-2023 Albumin/Globulin Elph (24H U) [Mass ratio] 72.86 % Normal [facility] Comment on above: Order Comment: Speci men Type: TIMED URINE SPECIMENOrdering Facility: [facility] Address: [address] [place] [address] Performed By: #### L [id number] ####[facility] LABCLIA [id number] [place] [address] [place] Alpha 1 globulin Elph (24H U) [Mass fraction] 2.81 % Normal [facility] Comment on above: Order Comment: Speci men Type: TIMED URINE SPECIMENOrdering Facility: [facility] Address: [address] [place] [address] Performed By: #### L [id number] ####[facility] LABCLIA [id number] [place] [address] [place] Alpha 2 globulin Elph (24H U) [Mass fraction] 7.11 % Normal [facility] Comment on above: Order Comment: Speci men Type: TIMED URINE SPECIMENOrdering Facility: [facility] Address: [address] [place] [address] Performed By: #### L [id number] ####[facility] LABCLIA [id number] [place] [address] [place] Beta globulin Elph (24H U) [Mass fraction] 11.84 % Normal [facility] Comment on above: Order Comment: Speci men Type: TIMED URINE SPECIMENOrdering Facility: [facility] Address: [address] [place] [address] Performed By: #### L [id number] ####[facility] LABCLIA [id number] [place] [address] [place] Gamma globulin Elph (24H U) [Mass fraction] 5.37 % Normal [facility] Comment on above: Order Comment: Speci men Type: TIMED URINE SPECIMENOrdering Facility: [facility] Address: [address] [place] [address] Performed By: #### L [id number] ####[facility] LABIA [id number] [address] [place] INTERPRETATION COMMENT FOR PROTEIN ELECTROPHORESIS See separate immunofixation report for characterization of monoclonal gammopathy. Normal [facility] Comment on above: Order Comment: Speci men Type: TIMED URINE SPECIMENOrdering Facility: [facility] Address: [address] [place] [address] Performed By: #### L [id number] ####[facility] LABIA [id number] [place] [address] [place] Protein Fractions Elph Luis Manuel (24H U) [Interp] An M protein is identified on protein electrophoresis. Abnormal No definitive M protein is identified on protein electrophoresi s. [facility] Comment on above: Order Comment: Speci men Type: TIMED URINE SPECIMENOrdering Facility: [facility] Address: [address] [place] [address] Performed By: #### L [id number] ####[facility] LABIA [id number] [place] [address] [place] Protein.monoclonal Elph (24H U) [Mass/Time] Normal [facility] Comment on above: Order Comment: Speci men Type: TIMED URINE SPECIMENOrdering Facility: [facility] Address: [address] [place] [address] Result Comment: M pr otein is too faint for accurate quantitation. Performed By: #### L [id number] ####[facility] LABIA [id number] [place] [id number] [place] STAFF REVIEW ([id number]) Reviewed by Denia Kramer MD Normal [facility] Comment on above: Order Comment: Speci men Type: TIMED URINE SPECIMENOrdering Facility: [facility] Address: [address] [place] [address] Performed By: #### L [id number] ####[facility] LABCLIA [id number] [place] [address] [place] Prot 24h Ur-mRateon 06-22-19 24 Protein (24H U) [Mass/Time] 0.25 g/24 Hr High <0.15 [facility] Comment on above: Order Comment: Speci men Type: URINE SPECIMEN [facility] Address: [address] [place] [address] Result Comment: Adul t Proteinuria Categories: <0.15 g/24 hours is considered normal to mildly increased 0.15 - 0.50 g/24 hours is considered moderately increased >0.50 g/24 hours is considered severely increased KDIGO. (2013). KDIGO 2012 Clinical Practice Guideline for the Evaluation and Management of Chronic Kidney Disease. Official Journal of the International Society of Nephrology, 3(1), 1-150. Performed By: #### L [id number] #### [facility] LAB CLIA [id number] [address] [place] [address] [place] Protein (24H U) [Mass/Time]o n 06-22-2023 PERIOD (HRS) 24 hr Normal [facility] Comment on above: Order Comment: Speci men Type: URINE SPECIMEN [facility] Address: [address] [place] [address] Performed By: #### L [id number] #### [facility] CLIA [id number] [address] [place] [address] [place] Specimen volume (24H U) 2.1 L Normal [facility] Comment on above: Order Comment: Speci men Type: URINE SPECIMEN [facility] Address: [address] [place] [address] Performed By: #### L [id number] #### [facility] CLIA [id number] [address] [place] [address] [place] B2 Microglob SerPl-mCncon Vbpb-7-Cphlloyuyfzn n [Mass/Vol] 3.2 ug/mL High <3.1 [facility] Comment on above: Order Comment: Speci men Type: BLOOD SPECIMENOrdering Facility: [facility] Address: [address] [place] [address] Result Comment: Beta -2 Microglobulin test is performed using the [employer] immunoturbidimetric method. Results obtained with different methods or kits cannot be used interchangeably. Performed By: #### 2 885-2, 195-1 ####[facility] LABCLIA [id number] [place] [address] [place] CBC W Auto Differential pane l (Bld)on 06-20-2023 Basophils (Bld) [#/Vol] 0.03 10*3/uL Normal <0.11 [facility] Comment on above: Order Comment: Speci men Type: BLOOD SPECIMENOrdering Facility: [facility] Address: [address] [place] [address] Performed By: #### 5 7021-8 ####[facility] [id number] [place] [address] [place] Basophils/100 WBC (Bld) 0.6 % Normal [facility] Comment on above: Order Comment: Speci men Type: BLOOD SPECIMENOrdering Facility: [facility] Address: [address] [place] [address] Performed By: #### 5 7021-8 ####[facility] [id number] [place] [address] [place] Differential cell count method Nom (Bld) Auto Normal [facility] Comment on above: Order Comment: Speci men Type: BLOOD SPECIMENOrdering Facility: [facility] Address: [address] [place] [address] Performed By: #### 5 7021-8 ####[facility] [id number] [place] [address] [place] Eosinophils (Bld) [#/Vol] 0.20 10*3/uL Normal <0.46 [facility] Comment on above: Order Comment: Speci men Type: BLOOD SPECIMENOrdering Facility: [facility] Address: [address] [place] [address] Performed By: #### 5 7021-8 ####[facility] [id number] [place] [address] [place] Eosinophils/100 WBC (Bld) 3.8 % Normal [facility] Comment on above: Order Comment: Speci men Type: BLOOD SPECIMENOrdering Facility: [facility] Address: [address] [place] [address] Performed By: #### 5 7021-8 ####[facility] [id number] [place] [address] [place] Erythrocyte distribution width (RBC) [Ratio] 13.7 % Normal 11.5-15.0 [facility] Comment on above: Order Comment: Speci men Type: BLOOD SPECIMENOrdering Facility: [facility] Address: [address] [place] [address] Performed By: #### 5 7021-8 ####[facility] [id number] [place] [address] [place] Hematocrit (Bld) [Volume fraction] 45.0 % Normal 39.0-51.0 [facility] Comment on above: Order Comment: Speci men Type: BLOOD SPECIMENOrdering Facility: [facility] Address: [address] [place] [address] Performed By: #### 5 7021-8 ####[facility] [id number] [place] [address] [place] Hemoglobin (Bld) [Mass/Vol] 15.1 g/dL Normal 13.0-17.0 [facility] Comment on above: Order Comment: Speci men Type: BLOOD SPECIMENOrdering Facility: [facility] Address: [address] [place] [address] Performed By: #### 5 7021-8 ####[facility] MILLWNCLIA [id number] [place] [address] [place] Immature granulocytes (Bld) [#/Vol] 10*3/uL Normal <0.10 [facility] Comment on above: Order Comment: Speci men Type: BLOOD SPECIMENOrdering Facility: [facility] Address: [address] [place] [address] Performed By: #### 5 7021-8 ####[facility] COUNTYWNCL[facility] [id number] [place] [address] [place] Immature granulocytes/100 WBC (Bld) 0.4 % Normal [facility] Comment on above: Order Comment: Speci men Type: BLOOD SPECIMENOrdering Facility: [facility] Address: [address] [place] [address] Performed By: #### 5 7021-8 ####[facility] [id number] [place] [address] [place] Lymphocytes (Bld) [#/Vol] 0.76 10*3/uL Low 1.00-4.00 [facility] Comment on above: Order Comment: Speci men Type: BLOOD SPECIMENOrdering Facility: [facility] Address: [address] [place] [address] Performed By: #### 5 7021-8 ####[facility] COUNTYWNCL[facility] [id number] [place] [address] [place] Lymphocytes/100 WBC (Bld) 14.5 % Normal [facility] Comment on above: Order Comment: Speci men Type: BLOOD SPECIMENOrdering Facility: [facility] Address: [address] [place] [address] Performed By: #### 5 7021-8 ####[facility] [id number] [place] [address] [place] MCH (RBC) [Entitic mass] 28.2 pg Normal 26.0-34.0 [facility] Comment on above: Order Comment: Speci men Type: BLOOD SPECIMENOrdering Facility: [facility] Address: [address] [place] [address] Performed By: #### 5 7021-8 ####[facility] [id number] [address] [place] MCHC (RBC) [Mass/Vol] 33.6 g/dL Normal 30.5-36.0 [facility] Comment on above: Order Comment: Speci men Type: BLOOD SPECIMENOrdering Facility: [facility] Address: [address] [place] [address] Performed By: #### 5 7021-8 ####[facility] [id number] [place] [address] [place] MCV (RBC) [Entitic vol] 84.1 fL Normal 80.0-100.0 [facility] Comment on above: Order Comment: Speci men Type: BLOOD SPECIMENOrdering Facility: [facility] Address: [address] [place] [address] Performed By: #### 5 7021-8 ####[facility] [id number] [place] [address] [place] Monocytes (Bld) [#/Vol] 0.37 10*3/uL Normal <0.87 [facility] Comment on above: Order Comment: Speci men Type: BLOOD SPECIMENOrdering Facility: [facility] Address: [address] [place] [address] Performed By: #### 5 7021-8 ####[facility]ITALNCLIJodi [id number] [place] [address] [place] Monocytes/100 WBC (Bld) 7.1 % Normal [facility] Comment on above: Order Comment: Speci men Type: BLOOD SPECIMENOrdering Facility: [facility] Address: [address] [place] [address] Performed By: #### 5 7021-8 ####[facility] RADHAWEST HILLSRITALIA [id number] [place] [address] [place] Neutrophils (Bld) [#/Vol] 3.86 10*3/uL Normal 1.45-7.50 [facility] Comment on above: Order Comment: Speci men Type: BLOOD SPECIMENOrdering Facility: [facility] Address: [address] [place] [address] Performed By: #### 5 7021-8 ####[facility]ITALLIA [id number] [place] [address] [place] Neutrophils/100 WBC (Bld) 73.6 % Normal [facility] Comment on above: Order Comment: Speci men Type: BLOOD SPECIMENOrdering Facility: [facility] Address: [address] [place] [address] Performed By: #### 5 7021-8 ####[facility]ENTER[facility] [id number] [place] [address] [place] Nucleated RBC (Bld) [#/Vol] 10*3/uL Normal <0.01 [facility] Comment on above: Order Comment: Speci men Type: BLOOD SPECIMENOrdering Facility: [facility] Address: [address] [place] [address] Performed By: #### 5 7021-8 ####[facility]IT[facility] [id number] [place] [address] [place] Nucleated RBC/100 WBC (Bld) [Ratio] 0.0 /100 WBC Normal [facility] Comment on above: Order Comment: Speci men Type: BLOOD SPECIMENOrdering Facility: [facility] Address: [address] [place] [address] Performed By: #### 5 7021-8 ####[facility] MILLTOWNCLIA [id number] [place] [address] [place] Platelet mean volume (Bld) [Entitic vol] 10.0 fL Normal 9.0-12.7 [facility] Comment on above: Order Comment: Speci men Type: BLOOD SPECIMENOrdering Facility: [facility] Address: [address] [place], [place] [address] Performed By: #### 5 7021-8 ####[facility] COUNTYWNCLIA [id number] [place] [address] [place] Platelets (Bld) [#/Vol] 166 10*3/uL Normal 150-400 [facility] Comment on above: Order Comment: Speci men Type: BLOOD SPECIMENOrdering Facility: [facility] Address: [address] [place], [place] [address] Performed By: #### 5 7021-8 ####[facility]ITALNCLIA [id number] [place] [address] [place] RBC (Bld) [#/Vol] 5.35 10*6/uL Normal 4.20-6.00 [facility] Comment on above: Order Comment: Speci men Type: BLOOD SPECIMENOrdering Facility: [facility] Address: [address] [place] [address] Performed By: #### 5 7021-8 ####[facility] COUNTYWNCLIA [id number] [place] [address] [place] WBC (Bld) [#/Vol] 5.24 10*3/uL Normal 3.70-11.00 [facility] Comment on above: Order Comment: Speci men Type: BLOOD SPECIMENOrdering Facility: [facility] Address: [address] [place], [place] [address] Performed By: #### 5 7021-8 ####[facility]ITALNCLIA [id number] [place] [address] [place] Comprehensive metabolic 2000 panelon 06-20-2023 Albumin [Mass/Vol] 4.6 g/dL Normal 3.9-4.9 [facility] Comment on above: Order Comment: Speci men Type: URINE SPECIMEN [facility] Address: [address] [place] [address] Performed By: #### L [id number] #### [facility] CLIA [id number] [address] [place] [address] [place] ALP [Catalytic activity/Vol] 52 U/L Normal 38-113 [facility] Comment on above: Order Comment: Speci men Type: URINE SPECIMEN [facility] Address: [address] [place] [address] Performed By: #### L [id number] #### [facility] CLIA [id number] [address] [place] [address] [place] ALT [Catalytic activity/Vol] 18 U/L Normal 10-54 [facility] Comment on above: Order Comment: Speci men Type: URINE SPECIMEN [facility] Address: [address] [place] [address] Performed By: #### L [id number] #### [facility] CLIA [id number] [address] [place] [address] [place] Anion gap [Moles/Vol] 7 mmol/L Low 9-18 [facility] Comment on above: Order Comment: Speci men Type: URINE SPECIMEN [facility] Address: [address] [place] [address] Performed By: #### L [id number] #### [facility] CLIA [id number] [address] [place] [address] [place] AST [Catalytic activity/Vol] 18 U/L Normal 14-40 [facility] Comment on above: Order Comment: Speci men Type: URINE SPECIMEN [facility] Address: [address] [place] [address] Performed By: #### L [id number] #### [facility] CLIA [id number] [address] [place] [address] [place] Bilirubin [Mass/Vol] 1.0 mg/dL Normal 0.2-1.3 [facility] Comment on above: Order Comment: Speci men Type: URINE SPECIMEN [facility] Address: [address] [place] [address] Performed By: #### L [id number] #### [facility] CLIA [id number] [address] [place] [address] [place] Calcium [Mass/Vol] 10.0 mg/dL Normal 8.5-10.2 [facility] Comment on above: Order Comment: Speci men Type: URINE SPECIMEN [facility] Address: [address] [place] [address] Performed By: #### L [id number] #### [facility] CLIA [id number] [address] [place] [address] [place] Chloride [Moles/Vol] 109 mmol/L High 97-105 [facility] Comment on above: Order Comment: Speci men Type: URINE SPECIMEN [facility] Address: [address] [place] [address] Performed By: #### L [id number] #### [facility] CLIA [id number] [address] [place] [address] [place] CO2 [Moles/Vol] 23 mmol/L Normal 22-30 [facility] Comment on above: Order Comment: Speci men Type: URINE SPECIMEN [facility] Address: [address] [place] [address] Performed By: #### L [id number] #### [facility] CLIA [id number] [place] Creatinine [Mass/Vol] 1.36 mg/dL High 0.73-1.22 [facility] Comment on above: Order Comment: Abdi james Type: URINE SPECIMEN [facility] Address: [address] [place] [address] Performed By: #### L [id number] #### [facility] CLIA [id number] [address] [place] [address] [place] Creatinine and Glomerular filtration rate.predicted panel (S/P/Bld) 52 mL/min/1.73m??? Low >=60 [facility] Comment on above: Order Comment: Abdi james Type: URINE SPECIMEN [facility] Address: [address] [place] [address] Result Comment: Yuli mated Glomerular Filtration Rate (eGFR) is calculated using the 2020 CKD-EPI creatinine equation. This equation utilizes serum creatinine, sex, and age as parameters. The creatinine assay has traceable calibration to isotope dilution-mass spectrometry. Refer to KDIGO guidelines for clinical interpretation. In patients with unstable renal function, e.g. those with acute kidney injury, the eGFR may not accurately reflect actual GFR. Performed By: #### L [id number] #### [facility] CLIA [id number] [address] [place] [address] [place] Glucose [Mass/Vol] 107 mg/dL High 74-99 [facility] Comment on above: Order Comment: Abdi james Type: URINE SPECIMEN [facility] Address: [address] [place] [address] Result Comment: The [place] [employer] (ADA) provides guidance for cutoff values for fasting glucose and random glucose. The ADA defines fasting as no caloric intake for at least 8 hours. Fasting plasma glucose results between 100 to 125 mg/dL indicate increased risk for diabetes (prediabetes). Fasting plasma glucose results greater than or equal to 126 mg/dL meet the criteria for diagnosis of diabetes. In the absence of unequivocal hyperglycemia, results should be confirmed by repeat testing. In a patient with classic symptoms of hyperglycemia or hyperglycemic crisis, random plasma glucose results greater than or equal to 200 mg/dL meet the criteria for diagnosis of diabetes. Reference: Standards of Medical Care in Diabetes 2016, [place] [employer]. Diabetes Care. 2016.39(Suppl 1). Performed By: #### L [id number] #### [facility] CLIA [id number] [address] [place] [address] [place] Potassium [Moles/Vol] 4.4 mmol/L Normal 3.7-5.1 [facility] Comment on above: Order Comment: Speci men Type: URINE SPECIMEN [facility] Address: [address] [place] [address] Performed By: #### L [id number] #### [facility] CLIA [id number] [address] [place] [address] [place] Protein [Mass/Vol] 7.6 g/dL Normal 6.3-8.0 [facility] Comment on above: Order Comment: Speci men Type: URINE SPECIMEN [facility] Address: [address] [place] [address] Performed By: #### L [id number] #### [facility] CLIA [id number] [address] [place] [address] [place] Sodium [Moles/Vol] 139 mmol/L Normal 136-144 [facility] Comment on above: Order Comment: Speci men Type: URINE SPECIMEN [facility] Address: [address] [place] [address] Performed By: #### L [id number] #### [facility] CLIA [id number] [address] [place] [address] [place] Urea nitrogen [Mass/Vol] 33 mg/dL High 9-24 [facility] Comment on above: Order Comment: Speci men Type: URINE SPECIMEN [facility] Address: [address] [place] [address] Performed By: #### L [id number] #### [facility] CLIA [id number] [address] [place] [address] [place] IMMUNOFIXATION SCREEN, SERUM on 06-20-2023 INTERPRETATION (MPA) Atypical restricted bands are present in the IgG and kappa regions. Consistent with IgG kappa monoclonal gammopathy. Normal [facility] Comment on above: Order Comment: Speci men Type: BLOOD SPECIMENOrdering Facility: [facility] Address: [address] [place] [address] Performed By: #### I FESC ####[facility] LABCLIA [id number] [place] [address] [place] MPA RESULT M protein is present. Abnormal No M p rotein is identified. [facility] Comment on above: Order Comment: Speci men Type: BLOOD SPECIMENOrdering Facility: [facility] Address: [address] [place] [address] Performed By: #### I FESC ####[facility] LABCLIA [id number] [address] [place] STAFF REVIEW ([facility]) Reviewed by Darvin Baugh MD, Ph.D ([id number]) Normal [facility] Comment on above: Order Comment: Speci men Type: BLOOD SPECIMENOrdering Facility: [facility] Address: [address] [place] [address] Performed By: #### I FESC ####[facility] LABCLIA [id number] [place] [address] [place] IMMUNOGLOBULINS GAMon 2023 IgA [Mass/Vol] 145 mg/dL Normal 70-400 [facility] Comment on above: Order Comment: Speci men Type: URINE SPECIMEN [facility] Address: [address] [place] [address] Performed By: #### L [id number] #### [facility] CLIA [id number] [address] [place] [address] [place] IgG [Mass/Vol] 1342 mg/dL Normal 700-1600 [facility] Comment on above: Order Comment: Speci men Type: URINE SPECIMEN [facility] Address: [address] [place] [address] Performed By: #### L [id number] #### [facility] CLIA [id number] [address] [place] [address] [place] IgM [Mass/Vol] 22 mg/dL Low 40-230 [facility] Comment on above: Order Comment: Speci men Type: URINE SPECIMEN [facility] Address: [address] [place] [address] Performed By: #### L [id number] #### [facility] CLIA [id number] [address] [place] [address] [place] KAPPA/CHRISTIE,FREE,SERon 2023 Immunoglobulin light chains.kappa.free (S) [Mass/Vol] 26.5 mg/L High 3.3-19.4 [facility] Comment on above: Order Comment: Speci men Type: URINE SPECIMEN [facility] Address: [address] [place] [address] Result Comment: Rare ly, increased serum free light chains levels may not be detected or accurately quantified due to prozone phenomenon or in high viscosity samples using this immunoturbidimetric assay. Correlation with other laboratory results and clinical findings is recommended. The Wray Free Light Chain was performed using the Binding Site Optilite immunoturbidimetric method. Result obtained with different assay methods or kits cannot be used interchangeably. Performed By: #### L [id number] #### [facility] CLIA [id number] [address] [place] [address] [place] Immunoglobulin light chains.kappa/Immuno globulin light chains.lambda (S) [Mass ratio] 0.95 Normal 0.26-1.65 [facility] Comment on above: Order Comment: Speci men Type: URINE SPECIMEN [facility] Address: [address] [place] [address] Performed By: #### L [id number] #### [facility] CLIA [id number] [address] [place] [address] [place] Immunoglobulin light chains.lambda.free [Mass/Vol] 27.8 mg/L High 5.7-26.3 [facility] Comment on above: Order Comment: Speci men Type: URINE SPECIMEN [facility] Address: [address] [place] [address] Result Comment: Rare ly, increased serum free light chains levels may not be detected or accurately quantified due to prozone phenomenon or in high viscosity samples using this immunoturbidimetric assay. Correlation with other laboratory results and clinical findings is recommended. The Lambda Free Light Chain was performed using the Binding Site Optilite immunoturbidimetric method. Result obtained with different assay methods or kits cannot be used interchangeably. Performed By: #### L [id number] #### [facility] CLIA [id number] [address] [place] [address] [place] LDH SerPl-cCncon 06-20-2023 LDH [Catalytic activity/Vol] 182 U/L Normal 135-225 [facility] Comment on above: Order Comment: Speci men Type: URINE SPECIMEN [facility] Address: [address] [place] [address] Performed By: #### L [id number] #### [facility] CLIA [id number] [address] [place] [address] [place] PROTEIN ELECTROPHORESIS SERU M (P)on 06-20-2023 Albumin [Mass/Vol] 4.38 g/dL Normal 3.43-5.41 [facility] Comment on above: Order Comment: Speci men Type: BLOOD SPECIMENOrdering Facility: [facility] Address: [address] [place] [address] Performed By: #### L [id number] ####[facility] LABCLIA [id number] [place] [address] [place] Alpha 1 globulin Elph [Mass/Vol] 0.18 g/dL Normal 0.18-0.43 [facility] Comment on above: Order Comment: Speci men Type: BLOOD SPECIMENOrdering Facility: [facility] Address: [address] [place] [address] Performed By: #### L [id number] ####[facility] LABIA [id number] [place] [address] [place] Alpha 2 globulin Elph [Mass/Vol] 0.62 g/dL Normal 0.42-0.98 [facility] Comment on above: Order Comment: Speci men Type: BLOOD SPECIMENOrdering Facility: [facility] Address: [address] [place] [address] Performed By: #### L [id number] ####[facility] [id number] [place] [address] [place] Beta globulin Elph [Mass/Vol] 0.69 g/dL Normal 0.61-1.17 [facility] Comment on above: Order Comment: Speci men Type: BLOOD SPECIMENOrdering Facility: [facility] Address: [address] [place] [address] Performed By: #### L [id number] ####[facility]IA [id number] [place] [address] [place] Gamma globulin Elph [Mass/Vol] 1.13 g/dL Normal 0.53-1.51 [facility] Comment on above: Order Comment: Speci men Type: BLOOD SPECIMENOrdering Facility: [facility] Address: [address] [place] [address] Performed By: #### L [id number] ####[facility] LABIA [id number] [place] [address] [place] INTERPRETATION COMMENT FOR PROTEIN ELECTROPHORESIS See separate immunofixation report for characterization of monoclonal gammopathy. Normal [facility] Comment on above: Order Comment: Speci men Type: BLOOD SPECIMENOrdering Facility: [facility] Address: [address] [place] [address] Performed By: #### L [id number] ####[facility] LABIA [id number] [place] [address] [place] M-PROTEIN LOCATION Gamma Fraction 1 Normal [facility] Comment on above: Order Comment: Speci men Type: BLOOD SPECIMENOrdering Facility: [facility] Address: [address] [place] [address] Performed By: #### L [id number] ####[facility] LABIA [id number] [place] [address] [place] Protein Fractions [Interp] An M protein is identified on protein electrophoresis. Abnormal No definitive M protein is identified on protein electrophoresi s. [facility] Comment on above: Order Comment: Speci men Type: BLOOD SPECIMENOrdering Facility: [facility] Address: [address] [place] [address] Performed By: #### L [id number] ####[facility] LABIA [id number] [place] [address] [place] Protein.monoclonal Elph [Mass/Vol] 0.62 g/dL High <=0.00 [facility] Comment on above: Order Comment: Speci men Type: BLOOD SPECIMENOrdering Facility: [facility] Address: [address] [place] [address] Performed By: #### L [id number] ####[facility] LABIA [id number] [place] [id number] [place] SPE STAFF REVIEW Reviewed by Darvin Baugh MD, Ph.D ([id number]) Normal [facility] Comment on above: Order Comment: Speci men Type: BLOOD SPECIMENOrdering Facility: [facility] Address: [address] [place] [address] Performed By: #### L [id number] ####[facility] LABIA [id number] [place] [id number] [place] Prot SerPl-mCncon 06-20-2023 Protein [Mass/Vol] 7.0 g/dL Normal 6.3-8.0 [facility] Comment on above: Order Comment: Speci men Type: BLOOD SPECIMENOrdering Facility: [facility] Address: [address] [place] [address] Performed By: #### 2 885-2, 1951-04 ####[facility] LABCLIA [id number] [facility]DESK [id number] [place] CNOVon 06-11-2023 CNOV Office Visit (KIDMST ) -------- QIAN PINK ([id number]) 1940 M Date Time Provider Department 06/11/23 10:40 AM ÁNGEL JULIO During your visit today, we recorded the following information about you: Pulse Respiration Blood pressure Weight 58/minute 16/minute 153/76 86.3 kg Ángel Julio DO 06/11/2023 10:56 AM Signed [facility] SERVICE DATE: 06/11/2023 SERVICE TIME: 10:55 AM CHIEF COMPLAINT: Chronic kidney disease stage IIIb HPI: Mr. Pink is a 82 year old male with a PMHx of hypertension, diabetes mellitus, and hyperlipidemia who presents with chronic kidney disease stage IIIb. Chronic kidney disease stage IIIb etiology likely to obstructive uropathy, hypertensive nephrosclerosis, and diabetic nephropathy. Established 08/08/2021 - Recommended urology follow up 05/05/2022 - No recent issues. Renal labs every 6 months. Follow up in 12 months. Followed with hematology/oncology for IgG kappa MGUS. 24 hour urine with a poorly defined region of restricted mobility that may represent an M protein. 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 pantoprazole DR (PROTONIX) 40 mg tablet Take 1 tablet by mouth once daily. blood sugar diagnostic (FREESTYLE LITE STRIPS) test strip Test blood sugar(s) 1 times daily. Dx: Type 2 DM - Controlled E11.9 Insulin: No cetirizine (ZYRTEC) 10 mg tablet Take 1 tablet by mouth once daily. Tadalafil (CIALIS) 20 mg tablet Take 1 tablet by mouth as needed. Take 30-60 minutes prior to sexual activity losartan (COZAAR) 50 mg tablet Take 1 tablet by mouth every afternoon. fluticasone (FLONASE) 50 mcg/actuation nasal spray Use 2 Sprays in each nostril once daily. Rinse mouth after use. doxazosin (CARDURA) 2 mg tablet Take 1 tablet by mouth daily at bedtime. simvastatin (ZOCOR) 20 mg tablet Take 1 tablet by mouth daily at bedtime. ergocalciferol, vitamin D2, (VITAMIN D2 ORAL) Take 2 capsules by mouth once daily. Aspirin 81 mg Tab Take 81 mg by mouth once daily. MULTIVITAMIN TAB Take one(1) tablet daily. ALLERGIES: ALLERGIES Allergen Reactions Lisinopril Intolerance Victoriano Cough REVIEW OF SYSTEMS: Constitutional: No complaints Cardiovascular: No complaints Genitourinary: No complaints PHYSICAL EXAM: BP 153/76 (BP Site: Right Arm, BP Position: Sitting, BP Cuff Size: Large Adult) Pulse (!) 58 Resp 16 Wt 86.3 kg (190 lb 4.1 oz) BMI 27.24 kg/m? Constitutional:No acute distress, Responsive, Normal habitus, and Well-nourished Neck:Trachea midline No jugular venous distension Cardiovascular:No peripheral edema Regular rate and ryhthm, normal S1 and S2, no murmurs, rubs, or gallops Respiratory:Normal respiratory effort. Lungs clear bilaterally. Abdomen:Soft, non-tender, non-distended. Normal bowel sounds. No hepatosplenomegaly. Psychiatric: Alert and oriented x self, place, time, and setting Normal mood/affect DATA: Diagnostic tests reviewed for today's visit: Glucose (mg/dL) Date Value 05/17/2023 119 05/21/2021 137 Potassium (mmol/L) Date Value 05/17/2023 4.8 05/21/2021 4.9 Sodium (mmol/L) Date Value 05/17/2023 140 05/21/2021 139 Chloride (mmol/L) Date Value 05/17/2023 107 05/21/2021 102 CO2 (mmol/L) Date Value 05/17/2023 26 05/21/2021 25 Creatinine (mg/dL) Date Value 05/17/2023 1.55 05/21/2021 1.82 BUN (mg/dL) Date Value 05/17/2023 35 05/21/2021 50 Anion Gap (mmol/L) Date Value 05/17/2023 7 05/21/2021 12 Calcium (mg/dL) Date Value 05/21/2021 10.4 Calcium, Total (mg/dL) Date Value 05/17/2023 10.2 Protein, Total (g/dL) Date Value 05/17/2023 7.1 05/21/2021 6.4 Albumin (g/dL) Date Value 05/17/2023 4.4 05/21/2021 3.9 Bilirubin, Total (mg/dL) Date Value 05/17/2023 0.9 05/21/2021 0.6 Alkaline Phosphatase (U/L) Date Value 05/17/2023 55 (more content not included)... Normal [facility] CBC panel Auto (Bld)on 06-01 Erythrocyte distribution width (RBC) [Ratio] 13.6 % Normal 11.5-15.0 [facility] Comment on above: Order Comment: Speci men Type: BLOOD SPECIMEN Ordering Facility: [facility] Address: [address] [place] [address] Performed By: #### 5 8410-2 #### [facility] CLIA [id number] [address] [place] [address] [place] Hematocrit (Bld) [Volume fraction] 42.5 % Normal 39.0-51.0 [facility] Comment on above: Order Comment: Speci men Type: BLOOD SPECIMEN Ordering Facility: [facility] Address: [address] [place] [address] Performed By: #### 5 8410-2 #### [facility] CLIA [id number] [address] [place] [address] [place] Hemoglobin (Bld) [Mass/Vol] 14.1 g/dL Normal 13.0-17.0 [facility] Comment on above: Order Comment: Speci men Type: BLOOD SPECIMEN Ordering Facility: [facility] Address: [address] [place] [address] Performed By: #### 5 8410-2 #### [facility] CLIA [id number] [address] [place] [address] [place] MCH (RBC) [Entitic mass] 27.9 pg Normal 26.0-34.0 [facility] Comment on above: Order Comment: Speci men Type: BLOOD SPECIMEN Ordering Facility: [facility] Address: [address] [place] [address] Performed By: #### 5 8410-2 #### [facility] CLIA [id number] [address] [place] [address] [place] MCHC (RBC) [Mass/Vol] 33.2 g/dL Normal 30.5-36.0 [facility] Comment on above: Order Comment: Speci men Type: BLOOD SPECIMEN Ordering Facility: [facility] Address: [address] [place] [address] Performed By: #### 5 8410-2 #### [facility] CLIA [id number] [address] [place] [address] [place] MCV (RBC) [Entitic vol] 84.0 fL Normal 80.0-100.0 [facility] Comment on above: Order Comment: Speci men Type: BLOOD SPECIMEN Ordering Facility: [facility] Address: [address] [place] [address] Performed By: #### 5 8410-2 #### [facility] CLIA [id number] [address] [place] [address] [place] Nucleated RBC (Bld) [#/Vol] 10*3/uL Normal <0.01 [facility] Comment on above: Order Comment: Speci men Type: BLOOD SPECIMEN Ordering Facility: [facility] Address: [address] [place] [address] Performed By: #### 5 8410-2 #### [id number] [address] [place] [address] [place] Platelet mean volume (Bld) [Entitic vol] 10.0 fL Normal 9.0-12.7 [facility] Comment on above: Order Comment: Speci men Type: BLOOD SPECIMEN Ordering Facility: [facility] Address: [address] [place] [address] Performed By: #### 5 8410-2 #### [facility] [id number] [address] [place] [address] [place] Platelets (Bld) [#/Vol] 168 10*3/uL Normal 150-400 [facility] Comment on above: Order Comment: Speci men Type: BLOOD SPECIMEN Ordering Facility: [facility] Address: [address] [place] [address] Performed By: #### 5 8410-2 #### [facility] CLIA [id number] [address] [place] [address] [place] RBC (Bld) [#/Vol] 5.06 10*6/uL Normal 4.20-6.00 [facility] Comment on above: Order Comment: Speci men Type: BLOOD SPECIMEN Ordering Facility: [facility] Address: [address] [place] [address] Performed By: #### 5 8410-2 #### [facility] CLIA [id number] [address] [place] [address] [place] WBC (Bld) [#/Vol] 5.24 10*3/uL Normal 3.70-11.00 [facility] Comment on above: Order Comment: Speci men Type: BLOOD SPECIMEN Ordering Facility: [facility] Address: [address] [place] [address] Performed By: #### 5 8410-2 #### [facility] CLIA [id number] [address] [place] [address] [place] Prot/Creat Uron 06-01-2023 Protein/Creatinine (U) [Mass ratio] 0.14 mg/mg Normal <0.15 [facility] Comment on above: Order Comment: Speci men Type: URINE SPECIMENOrdering Facility: [facility] Address: [address] [place] [address] Result Comment: Adul t Proteinuria Categories: <0.15 mg/mg is considered normal to mildly increased 0.15 - 0.50 mg/mg is considered moderately increased >0.50 mg/mg is considered severely increased KDIGO. (2013). KDIGO 2012 Clinical Practice Guideline for the Evaluation and Management of Chronic Kidney Disease. Official Journal of the International Society of Nephrology, 3(1), 1-150. Performed By: #### 2 890-2 ####[facility] LABCLIA [id number] [place] [address] [place] Protein/Creatinine (U) [Mass ratio]on 06-01-2023 Creatinine (U) [Mass/Vol] 50.2 mg/dL Normal 20.0-300.0 [facility] Comment on above: Order Comment: Speci men Type: URINE SPECIMENOrdering Facility: [facility] Address: [address] [place] [address] Performed By: #### 2 890-2 ####[facility] LABIA [id number] [place] [address] [place] Protein (U) [Mass/Vol] 7 mg/dL Normal 0-20 [facility] Comment on above: Order Comment: Speci men Type: URINE SPECIMENOrdering Facility: [facility] Address: [address] [place] [address] Performed By: #### 2 890-2 ####[facility] LABIA [id number] [place] [address] [place] Urinalysis complete panel (U )on 06-01-2023 Bacteria LM.HPF (Urine sed) [#/Area] Negative Normal Negative [facility] Comment on above: Order Comment: Speci men Type: URINE SPECIMENOrdering Facility: [facility] Address: [address] [place] [address] Performed By: #### 2 4356-8 ####[facility] LABIA [id number] [place] [address] [place] Bilirubin Ql (U) Negative Normal Negative [facility] Comment on above: Order Comment: Speci men Type: URINE SPECIMENOrdering Facility: [facility] Address: [address] [place] [address] Performed By: #### 2 4356-8 ####[facility] LABIA [id number] [place] [address] [place] Clarity (Unsp spec) Clear Normal Clear [facility] Comment on above: Order Comment: Speci men Type: URINE SPECIMENOrdering Facility: [facility] Address: [address] [place] [address] Performed By: #### 2 4356-8 ####[facility] LABIA [id number] [address] [place] Color (U) Yellow Normal Yellow [facility] Comment on above: Order Comment: Speci men Type: URINE SPECIMENOrdering Facility: [facility] Address: [address] [place] [address] Performed By: #### 2 4356-8 ####[facility] LABCLIA [id number] [place] [address] [place] Epithelial cells LM.HPF (Urine sed) [#/Area] None Seen Normal [facility] Comment on above: Order Comment: Speci men Type: URINE SPECIMENOrdering Facility: [facility] Address: [address] [place] [address] Performed By: #### 2 4356-8 ####[facility] LABCLIA [id number] [place] [address] [place] Glucose Test strip (U) [Mass/Vol] Negative Normal Negative [facility] Comment on above: Order Comment: Speci men Type: URINE SPECIMENOrdering Facility: [facility] Address: [address] [place] [address] Performed By: #### 2 4356-8 ####[facility] LABCLIA [id number] [place] [address] [place] Hemoglobin Ql (U) Negative Normal Negative [facility] Comment on above: Order Comment: Speci men Type: URINE SPECIMENOrdering Facility: [facility] Address: [address] [place] [address] Performed By: #### 2 4356-8 ####[facility] LABCLIA [id number] [place] [address] [place] Hyaline casts (Urine sed) [#/Area] 0 /[LPF] Normal 0 /LPF [facility] Comment on above: Order Comment: Speci men Type: URINE SPECIMENOrdering Facility: [facility] Address: [address] [place] [address] Performed By: #### 2 4356-8 ####[facility] LABCLIA [id number] [place] [address] [place] Ketones Ql (U) Negative Normal Negative [facility] Comment on above: Order Comment: Speci men Type: URINE SPECIMENOrdering Facility: [facility] Address: [address] [place] [address] Performed By: #### 2 4356-8 ####[facility] LABCLIA [id number] [place] [address] [place] Leukocyte esterase Test strip Ql (U) Negative Normal Negative [facility] Comment on above: Order Comment: Speci men Type: URINE SPECIMENOrdering Facility: [facility] Address: [address] [place] [address] Performed By: #### 2 4356-8 ####[facility] LABCLIA [id number] [place] [address] [place] Nitrite Ql (U) Negative Normal Negative [facility] Comment on above: Order Comment: Speci men Type: URINE SPECIMENOrdering Facility: [facility] Address: [address] [place] [address] Performed By: #### 2 4356-8 ####[facility] LABCLIA [id number] [place] [address] [place] pH (U) 6.0 [pH] Normal <8.5 [facility] Comment on above: Order Comment: Speci men Type: URINE SPECIMENOrdering Facility: [facility] Address: [address] [place] [address] Performed By: #### 2 4356-8 ####[facility] LABCLIA [id number] [place] [address] [place] Protein (U) [Mass/Vol] Negative Normal Negative [facility] Comment on above: Order Comment: Speci men Type: URINE SPECIMENOrdering Facility: [facility] Address: [address] [place] [address] Performed By: #### 2 4356-8 ####[facility] LABCLIA [id number] [place] [address] [place] RBC LM.HPF (Urine sed) [#/Area] 0-2 /HPF Normal 0-2 /HPF [facility] Comment on above: Order Comment: Speci men Type: URINE SPECIMENOrdering Facility: [facility] Address: [address] [place] [address] Performed By: #### 2 4356-8 ####[facility] LABIA [id number] [place] [address] [place] Specific gravity (U) [Rel density] 1.013 Normal 1.005-1.030 [facility] Comment on above: Order Comment: Speci men Type: URINE SPECIMENOrdering Facility: [facility] Address: [address] [place] [address] Performed By: #### 2 4356-8 ####[facility] LABIA [id number] [place] [address] [place] Urobilinogen Ql (U) 0.2 EU/dL Normal 0.2-1.0 EU/dL [facility] Comment on above: Order Comment: Speci men Type: URINE SPECIMENOrdering Facility: [facility] Address: [address] [place] [address] Performed By: #### 2 4356-8 ####[facility] LABIA [id number] [place] [address] [place] WBC LM.HPF (Urine sed) [#/Area] 0-5 /HPF Normal 0-5 /HPF [facility] Comment on above: Order Comment: Speci men Type: URINE SPECIMENOrdering Facility: [facility] Address: [address] [place] [address] Performed By: #### 2 4356-8 ####[facility] LABIA [id number] [place] [address] [address] [place] CNOVon 05-25-2023 CNOV Office Visit (FAMPWS ) -------- QIAN PINK ([id number]) 1940 M Date Time Provider Department 05/25/23 1:00 PM [facility] During your visit today, we recorded the following information about you: Pulse Respiration Blood pressure Weight 57/minute 16/minute 134/80 85.1 kg Rafael Ramirez APRN.DATA ANALYTICS ANALYST 05/25/2023 1:23 PM Signed Chief Complaint Patient presents with: F/U 6 Month HPI Qian Pink is a 82 year old male who presents here today for Chronic Medical Conditions. HTN: Patient is compliant with meds Yes Monitors bp at home: Yes. Denies side effects: Yes. Chest pain: No. Dyspnea: No. Edema: No. Palpitations: No. Syncope: No. Headache: No. Dizziness: No. HYPERLIPIDEMIA: Patient is taking medications: Yes. Patient is watching diet: Yes. Patient denies myalgias: Yes. Patient denies gi upset: Yes ED: Using cialis as needed. Depression Screening PHQ-2 Score 05/25/2023 0 Depression screening tool completed and reviewed. Based on score and interview, patient is not at risk for depression. Screening tool discussed with patient, and I recommended no further intervention at this time. Following with nephrology for stage 3 kidney disease. Following with urology for BPH. History of type 2 diabetes. On no medications. His Hgb A1c is well controlled with lifestyle control. Latest Hgb A1c was 6.1%. Following with hematology for MGUS. Just monitoring at this time. Taking protonix 40 mg for gerd. Given by ENT. Past medical history, appointments, medications, allergies reviewed. EXAM: BP 134/80 Pulse (!) 57 Resp 16 Wt 85.1 kg (187 lb 9.6 oz) SpO2 97% BMI 26.86 kg/m? General Appearance: Well appearing, alert, in no acute distress, well-hydrated, well nourished. Lungs: Lungs clear to auscultation. No wheezing, rhonchi, rales.. Heart: RRR without murmur, gallop, or rubs. No ectopy. Component Latest Ref Rng AND Units 05/17/2023 Protein, Total 6.3 - 8.0 g/dL 7.1 Albumin 3.9 - 4.9 g/dL 4.4 Calcium 8.5 - 10.2 mg/dL 10.2 Bilirubin, Total 0.2 - 1.3 mg/dL 0.9 Alkaline Phosphatase 38 - 113 U/L 55 AST 14 - 40 U/L 17 ALT 10 - 54 U/L 15 Glucose 74 - 99 mg/dL 119 (H) BUN 9 - 24 mg/dL 35 (H) Creatinine 0.73 - 1.22 mg/dL 1.55 (H) Sodium 136 - 144 mmol/L 140 Potassium 3.7 - 5.1 mmol/L 4.8 Chloride 97 - 105 mmol/L 107 (H) CO2 22 - 30 mmol/L 26 Anion Gap 9 - 18 mmol/L 7 (L) eGFR >=60 mL/min/1.73mA? 44 (L) Cholesterol, Total <200 mg/dL 150 Triglyceride <150 mg/dL 45 HDL Cholesterol >39 mg/dL 56 Non HDL Cholesterol <130 mg/dL 94 Fasting Time hrs 10 VLDL Cholesterol <30 mg/dL 9 TC:HDL Ratio <5.10 2.68 LDL Cholesterol <100 mg/dL 85 LDL:HDL Ratio <2.54 1.52 Creatinine, Ur Random (UCRR) 20.0 - 300.0 mg/dL 95.0 Albumin, Urine Random mg/L 33.0 Albumin/Creat Ratio <30 mg/g 35 (H) Hemoglobin A1C 4.3 - 5.6 % 6.1 (H) Estimated Average Glucose mg/dL 128 ASSESSMENT/PLAN: 1. Type 2 diabetes mellitus without complication, without long-term current use of insulin (HCC) - ICD9: 250.00, ICD10: E11.9 (primary diagnosis) - Controlled - Continue with lifestyle control - LIPID PANEL BASIC - COMP METABOLIC PANEL - HGB A1C 2. Stage 3b chronic kidney disease (HCC) - ICD9: 585.3, ICD10: N18.32 - Stable, continue following with nephrology as scheduled - COMP METABOLIC PANEL 3. Hyperlipidemia, unspecified hyperlipidemia type - ICD9: 272.4, ICD10: E78.5 - Controlled - Continue current medications - Counseled on healthy diet and regular exercise - LIPID PANEL BASIC 4. Essential hypertension, benign - ICD9: 401.1, ICD10: I10 - Controlled - Continue current medications - Recommend home blood pressure monitoring, to bring results to next visit - Encouraged sodium restriction, DASH or Mediterranean diet - Recommend regular aerobic exercise - COMP METABOLIC PANEL Rafael Ramirez APRN.DATA ANALYTICS ANALYST RTO in 6 months, sooner if needed. This note was partly generated using [employer] voice recognition dictation and may contain some misspelled or inaccurate words missed on review. Allergies As of Date: 05/25/2023 Noted Allergy Reaction LISINOPRIL 11/24/2022 5 - Intolerance Comments: Victoriano Cough Date Reviewed: 05/25/2023 Reviewed by: Yasmine Becker MA - Fully Assessed Reason for Visit: F/U 6 Month [444] Primary Visit Diagnosis:Type 2 diabetes 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, without long-term current use of insulin, unspecified whether stage 3a or 3b CKD (HCC) [E11.22, N18.30] Other Visit Diagnoses:Stage 3b chronic kidney disease (HCC) [N18.32] Hyperlipidemia, unspecified hyperlipidemia type [E78.5] Essential hypertension, benign [I10] Gastroesophageal reflux disease without esophagitis [K21.9] Order(s):LIPID PANEL BASIC [SQLIPB] Order #: [id number] FUTURE COMP METABOLIC PANEL [SQCMP] Order #: [id number] FUTURE HGB A1C [HPPNF3W] Order #: [id number] (more content not included)... Normal [facility] ALBUMIN/CREAT RATIO RND URon 05-17-2023 Albumin DL <= 20 mg/L (U) [Mass/Vol] 33.0 mg/L Normal [facility] Comment on above: Order Comment: Speci men Type: URINE SPECIMENOrdering Facility: [facility] Address: [address] [place] [address] [place] [address] Performed By: #### U ACR ####[facility] LABCLIA [id number] [place] [address] [place] Albumin/Creatinine (U) [Mass ratio] 35 mg/g High <30 [facility] Comment on above: Order Comment: Speci men Type: URINE SPECIMENOrdering Facility: [facility] Address: [address] [place] [address] Result Comment: Adul t Male and Female Nephrotic Criteria: <30 mg/g is considered normal to mildly increased 30-300 mg/g is considered moderately increased >300 mg/g is considered severely increased KDIGO. (2013). KDIGO 2012 Clinical Practice Guideline for the Evaluation and Management of Chronic Kidney Disease. Official Journal of the International Society of Nephrology, 3(1), 1-150. Performed By: #### U ACR ####[facility] LABWH[facility] [id number] [place] [address] [place] Creatinine (U) [Mass/Vol] 95.0 mg/dL Normal 20.0-300.0 [facility] Comment on above: Order Comment: Speci men Type: URINE SPECIMENOrdering Facility: [facility] Address: [address] [place] [address] Performed By: #### U ACR ####[facility] [id number] [place] [address] [place] Comprehensive metabolic 2000 panelon 05-17-2023 Albumin [Mass/Vol] 4.4 g/dL Normal 3.9-4.9 [facility] Comment on above: Order Comment: Speci men Type: BLOOD SPECIMENOrdering Facility: [facility] Address: [address] [place] [address] Performed By: #### 2 4323-8 ####[facility] [id number] [place] [address] [place] ALP [Catalytic activity/Vol] 55 U/L Normal 38-113 [facility] Comment on above: Order Comment: Speci men Type: BLOOD SPECIMENOrdering Facility: [facility] Address: [address] [place] [address] Performed By: #### 2 4323-8 ####[facility] MILLWNCLIA [id number] [place] [address] [place] ALT [Catalytic activity/Vol] 15 U/L Normal 10-54 [facility] Comment on above: Order Comment: Speci men Type: BLOOD SPECIMENOrdering Facility: [facility] Address: [address] [place] [address] Performed By: #### 2 4323-8 ####[facility] COUNTYWNCLIA [id number] [place] [address] [place] Anion gap [Moles/Vol] 7 mmol/L Low 9-18 [facility] Comment on above: Order Comment: Speci men Type: BLOOD SPECIMENOrdering Facility: [facility] Address: [address] [place] [address] Performed By: #### 2 4323-8 ####[facility] [id number] [place] [address] [place] AST [Catalytic activity/Vol] 17 U/L Normal 14-40 [facility] Comment on above: Order Comment: Speci men Type: BLOOD SPECIMENOrdering Facility: [facility] Address: [address] [place] [address] Performed By: #### 2 4323-8 ####[facility] COUNTYWNCL[facility] [id number] [place] [address] [place] Bilirubin [Mass/Vol] 0.9 mg/dL Normal 0.2-1.3 [facility] Comment on above: Order Comment: Speci men Type: BLOOD SPECIMENOrdering Facility: [facility] Address: [address] [place] [address] Performed By: #### 2 4323-8 ####[facility] COUNTYWNCLIA [id number] [place] [address] [place] Calcium [Mass/Vol] 10.2 mg/dL Normal 8.5-10.2 [facility] Comment on above: Order Comment: Speci men Type: BLOOD SPECIMENOrdering Facility: [facility] Address: [address] [place] [address] Performed By: #### 2 4323-8 ####[facility] MILLWNCLIA [id number] [place] [address] [place] Chloride [Moles/Vol] 107 mmol/L High 97-105 [facility] Comment on above: Order Comment: Speci men Type: BLOOD SPECIMENOrdering Facility: [facility] Address: [address] [place] [address] Performed By: #### 2 4323-8 ####[facility] [id number] [place] [address] [place] CO2 [Moles/Vol] 26 mmol/L Normal 22-30 [facility] Comment on above: Order Comment: Speci men Type: BLOOD SPECIMENOrdering Facility: [facility] Address: [address] [place] [address] Performed By: #### 2 4323-8 ####[facility] [id number] [place] [address] [place] Creatinine [Mass/Vol] 1.55 mg/dL High 0.73-1.22 [facility] Comment on above: Order Comment: Speci men Type: BLOOD SPECIMENOrdering Facility: [facility] Address: [address] [place] [address] Performed By: #### 2 4323-8 ####[facility] [id number] [place] [address] [place] Creatinine and Glomerular filtration rate.predicted panel (S/P/Bld) 44 mL/min/1.73m??? Low >=60 [facility] Comment on above: Order Comment: Speci men Type: BLOOD SPECIMENOrdering Facility: [facility] Address: [address] [id number] Result Comment: Yuli mated Glomerular Filtration Rate (eGFR) is calculated using the 2020 CKD-EPI creatinine equation. This equation utilizes serum creatinine, sex, and age as parameters. The creatinine assay has traceable calibration to isotope dilution-mass spectrometry. Refer to KDIGO guidelines for clinical interpretation. In patients with unstable renal function, e.g. those with acute kidney injury, the eGFR may not accurately reflect actual GFR. Performed By: #### 2 4323-8 ####[facility] [id number] [place] [address] [place] Glucose [Mass/Vol] 119 mg/dL High 74-99 [facility] Comment on above: Order Comment: Abdi james Type: BLOOD SPECIMENOrdering Facility: [facility] Address: [address] [place] [address] Result Comment: The [place] Diabetes Association (ADA) provides guidance for cutoff values for fasting glucose and random glucose. The ADA defines fasting as no caloric intake for at least 8 hours. Fasting plasma glucose results between 100 to 125 mg/dL indicate increased risk for diabetes (prediabetes). Fasting plasma glucose results greater than or equal to 126 mg/dL meet the criteria for diagnosis of diabetes. In the absence of unequivocal hyperglycemia, results should be confirmed by repeat testing. In a patient with classic symptoms of hyperglycemia or hyperglycemic crisis, random plasma glucose results greater than or equal to 200 mg/dL meet the criteria for diagnosis of diabetes. Reference: Standards of Medical Care in Diabetes 2016, [place] Diabetes Association. Diabetes Care. 2016.39(Suppl 1). Performed By: #### 2 4323-8 ####[facility] [id number] [place] [address] [place] Potassium [Moles/Vol] 4.8 mmol/L Normal 3.7-5.1 [facility] Comment on above: Order Comment: Abdi james Type: BLOOD SPECIMENOrdering Facility: [facility] Address: [address] [id number] Performed By: #### 2 4323-8 ####[facility] MILLTOWNCLIA [id number] [place] [address] [place] Protein [Mass/Vol] 7.1 g/dL Normal 6.3-8.0 [facility] Comment on above: Order Comment: Speci men Type: BLOOD SPECIMENOrdering Facility: [facility] Address: [address] [place] [address] Performed By: #### 2 4323-8 ####[facility] [id number] [place] [address] [place] Sodium [Moles/Vol] 140 mmol/L Normal 136-144 [facility] Comment on above: Order Comment: Speci men Type: BLOOD SPECIMENOrdering Facility: [facility] Address: [address] [place] [address] Performed By: #### 2 4323-8 ####[facility] [id number] [place] [address] [place] Urea nitrogen [Mass/Vol] 35 mg/dL High 9-24 [facility] Comment on above: Order Comment: Speci men Type: BLOOD SPECIMENOrdering Facility: [facility] Address: [address] [place] [address] Performed By: #### 2 4323-8 ####[facility] [id number] [place] [address] [place] HbA1c (Bld)on 05-17-2023 Average glucose Estimated from glycated hemoglobin (Bld) [Mass/Vol] 128 mg/dL Normal [facility] Comment on above: Order Comment: Speci men Type: BLOOD SPECIMENOrdering Facility: [facility] Address: [address] [place] [address] Result Comment: eAG: (Estimated average glucose) is a calculated value from HgbA1c and is community service representative of the average blood glucose level in the last 2-3 month period. Performed By: #### 5 5454-3 ####[facility] LABCLIA [id number] [place] [address] [place] HbA1c (Bld) [Mass fraction] 6.1 % High 4.3-5.6 [facility] Comment on above: Order Comment: Abdi james Type: BLOOD SPECIMENOrdering Facility: [facility] Address: [address] [place] [address] Result Comment: [place] Diabetes Association guidelines indicate that patients with HgbA1c in the range 5.7-6.4% are at increased risk for development of diabetes, and intervention by lifestyle modification may be beneficial. HgbA1c greater or equal to 6.5% is considered diagnostic of diabetes. Performed By: #### 5 5454-3 ####[facility] LABCLIA [id number] [place] [address] [place] Lipid 1996 panelon 4 Cholesterol [Mass/Vol] 150 mg/dL Normal <200 [facility] Comment on above: Order Comment: Abdi james Type: BLOOD SPECIMENOrdering Facility: [facility] Address: [address] [place] [address] Result Comment: <200 mg/dL, Desirable 200-239 mg/dL, Borderline high >239 mg/dL, High Performed By: #### 2 4331-1 ####[facility] LABCLIA [id number] [address] STATES OF [facility] [id number] [address] [place] Cholesterol in HDL [Mass/Vol] 56 mg/dL Normal >39 [facility] Comment on above: Order Comment: Abdi james Type: BLOOD SPECIMENOrdering Facility: [facility] Address: [address] [place] [address] Result Comment: 40-5 9 mg/dL, Acceptable >59 mg/dL, High: Negative risk factor for coronary heart disease <40 mg/dL, Low: Positive risk factor for coronary heart disease Performed By: #### 2 4331-1 ####[facility] LABCLIA [id number] [address] [id number] [address] Cholesterol in LDL [Mass/Vol] 85 mg/dL Normal <100 [facility] Comment on above: Order Comment: Speci men Type: BLOOD SPECIMENOrdering Facility: [facility] Address: [address] [place] [address] Result Comment: <100 mg/dL, Optimal 100-129 mg/dL, Near optimal/above optimal 130-159 mg/dL, Borderline high 160-189 mg/dL, High >189 mg/dL, Very high Secondary prevention optimal LDL Cholesterol levels are recommended to be < 70 mg/dL Performed By: #### 2 4331-1 ####[facility] LABCLIA [id number] [address] [id number] [address] STATES [facility] Cholesterol in LDL/Cholesterol in HDL [Mass ratio] 1.52 {ratio} Normal <2.54 [facility] Comment on above: Order Comment: Speci men Type: BLOOD SPECIMENOrdering Facility: [facility] Address: [address] [place] [address] Result Comment: Refe rence: 1. National Cholesterol Education Program ATP III Guideline At-A-Glance Quick Desk Reference: National Heart, Lung, and Blood [place]. National Institutes of Health. 2001: NIH Publication No. 01-3305. 2. An International Atherosclerosis Society position paper: global recommendations for the management of dyslipidemia: executive summary, Atherosclerosis. 2014: 232(2):410-413. Performed By: #### 2 4331-1 ####[facility] LABCLIA [id number] [address] [id number] [place] [address] [place] Cholesterol in VLDL [Mass/Vol] 9 mg/dL Normal <30 [facility] Comment on above: Order Comment: Speci men Type: BLOOD SPECIMENOrdering Facility: [facility] Address: [address] [place] [address] Performed By: #### 2 4331-1 ####[facility] LABCLIA [id number] [address] [id number] [place] [address] [place] Cholesterol non HDL [Mass/Vol] 94 mg/dL Normal <130 [facility] Comment on above: Order Comment: Speci men Type: BLOOD SPECIMENOrdering Facility: [facility] Address: [address] [place] [address] Result Comment: <130 mg/dL, Optimal 130-159 mg/dL, Near optimal/above optimal 160-189 mg/dL, Borderline high 190-219 mg/dL, High >219 mg/dL, Very high Secondary prevention optimal non HDL Cholesterol levels are recommended to be <100 mg/dL Performed By: #### 2 4331-1 ####[facility] LABCLIA [id number] [address] [id number] [place] [address] [place] Cholesterol.total/C holesterol in HDL [Mass ratio] 2.68 {ratio} Normal <5.10 [facility] Comment on above: Order Comment: Speci men Type: BLOOD SPECIMENOrdering Facility: [facility] Address: [address] [place] [address] Performed By: #### 2 4331-1 ####[facility] LABCLIA [id number] [address] [id number] [place] [address] [place] FASTING TIME 10 hrs Normal [facility] Comment on above: Order Comment: Speci men Type: BLOOD SPECIMENOrdering Facility: [facility] Address: [address] [place] [address] Performed By: #### 2 4331-1 ####[facility] LABCLIA [id number] [address] [id number] [place] [address] [place] Triglyceride [Mass/Vol] 45 mg/dL Normal <150 [facility] Comment on above: Order Comment: Speci men Type: BLOOD SPECIMENOrdering Facility: [facility] Address: [address] [place] [address] Result Comment: <150 mg/dL, Normal 150-199 mg/dL, Borderline high 200-499 mg/dL, High >499 mg/dL, Very high Performed By: #### 2 4331-1 ####[facility] LABCLIA [id number] [address] [id number] [place] [address] [place] CNOVon 02-15-2023 CNOV Office Visit (UROLST ) -------- QIAN PINK ([id number]) 1940 M Date Time Provider Department 02/15/23 1:45 PM JANUSZ DAVENPORT During your visit today, we recorded the following information about you: Funmi Giles, ROSY 02/15/2023 1:41 PM Signed PVR = 119 ml Janusz Davenport MD 04/11/2023 9:00 PM Signed [facility] UROLOGY ESTABLISHED PATIENT CLINIC NOTE UROL [facility] PATIENT INFO: Qian Pink 82 year old PCP: Jenae Savage MD IMPRESSION/PLAN: 1. Benign prostatic hyperplasia without lower urinary tract symptoms - ICD9: 600.00, ICD10: N40.0 (primary diagnosis) -Patient remains stable without any significant complaints. Patient currently taking doxazosin for BP control but this can also be beneficial for BPH. 2. Microscopic hematuria - ICD9: 599.72, ICD10: R31.29 -Send urine for microscopy 3. Screening for genitourinary condition - ICD9: V81.6, ICD10: Z13.89 REASON FOR VISIT: Follow-up HPI: Qian Pink returns for continuing evaluation and management. This is a very pleasant 82-year-old, accompanied by his , who presents for chronic care management of his BPH. Patient underwent TURP in September 2012 and has been doing fairly well ever since. No longer taking any oral medication. Also has a history of benign bilateral renal cysts. Recent ultrasound showed no significant change, stable bilateral renal cysts were noted. INTERNATIONAL PROSTATE SYMPTOM SCORE (I-PSS) 1)INCOMPLETE EMPTYING Over the past month, how often have you had a sensation of 0- Not at allnot emptying your bladder completely after you finished urinating? SCORE: 2)FREQUENCY Over the past month, how often have you had to urinate again less than two hours after you finished urinating? SCORE: 0- Not at all 3)INTERMITTENCY Over the past month, how often have you found you stopped and started again several times when you urinated? SCORE: 0- Not at all 4)URGENCY Over the past month, how often have you found it difficult to postpone urination? SCORE: 0- Not at all 5)WEAK STREAM Over the past month, how often have you had a weak stream? SCORE: 1- Less than 1 time in 5 6)STRAINING Over the past month, how often have you had to push or strain to begin urination SCORE: 0- Not at all 7)NOCTURIA Over the past month, how many times did you most typically get up to urinate from the time you went to bed at night until the time you get up in the morning? SCORE:0 TOTAL I-PSS SCORE: 1 QUALITY OF LIFE DUE TO URINARY SYMPTOMS If you were to spend the rest of yur life with your urinary condition just the way it is now, how would you feel about that? 1- Pleased UROLOGICAL DATA: Urinalysis: GLUCOSE UA (POCT) Negative 02/15/2023 BILIRUBIN UA (POCT) Negative 02/15/2023 KETONE UA (POCT) Negative 02/15/2023 SPECIFIC GRAVITY UA (POCT) 1.015 02/15/2023 HEMOGLOBIN/BLOOD UA (POCT) Value: Trace-intact 02/15/2023 PH UA (POCT) 5.5 02/15/2023 PROTEIN UA (POCT) Negative 02/15/2023 UROBILINOGEN UA (POCT) 0.2 02/15/2023 NITRITE UA (POCT) Negative 02/15/2023 LEUKOCYTES UA (POCT) Negative 02/15/2023 COLOR UA (POCT) Yellow 02/15/2023 CLARITY UA (POCT) Clear 02/15/2023 Post Void Residual, Ultrasound: 119 cc, empties fairly well OTHER DATA: PSA (ng/mL) Date Value 05/31/2020 4.11 04/10/2017 6.07 03/10/2016 2.29 05/17/2015 2.18 PSA, Percent Free (%) Date Value 05/31/2020 42 05/17/2015 41 09/28/2014 43 05/15/2014 21 No results found for: ISOPSA Creatinine Date Value Ref Range Status 11/24/2022 1.66 (H) 0.73 - 1.22 mg/dL Final 11/01/2022 1.62 (H) 0.73 - 1.22 mg/dL Final 05/20/2022 1.49 (H) 0.73 - 1.22 mg/dL Final 04/17/2022 1.63 (H) 0.73 - 1.22 mg/dL Final No results found for: TESTOST , TESTFREE PMHx/PSHx: see above, otherwise unchanged Rx: reviewed and unchanged ROS: see above, otherwise unchanged Labs: None Imaging: IMPRESSION: Multiple, bilateral renal cysts. Overall no significant change allowing for the difference in technique and patient positioning. Campus Rep: MANOJ Transcribe Date/Time: Jan 14 2023 4:00P Dictated by : CUBA JADE MD This examination was interpreted and the report reviewed and electronically signed by: CUBA JADE MD on Jan 14 2023 4:03PM EST Results-Findings * * *Final Report* * * DATE OF EXAM: Jan 11 2023 2:14PM U 1055 - US KIDNEY/BLADDER / PROCEDURE REASON: Congenital multiple renal cysts * * * * Physician Interpretation * * * * EXAMINATION: RENAL ULTRASOUND CLINICAL HISTORY: Congenital multiple renal cysts TECHNIQUE: Sonography of the kidneys and urinary bladder was performed. Images were obtained and stored in a permanent archive. MQ: UR_1 COMPARISON: 01/02/2022 RESULT: Right Kidney: -Renal length: 14.6 cm -Parenchyma: Normal parenchymal echogenicit (more content not included)... Normal [facility] Urinalysis complete panel (U )on 02-15-2023 Bacteria LM.HPF (Urine sed) [#/Area] Negative Normal Negative [facility] Comment on above: Order Comment: Speci men Type: URINE SPECIMENOrdering Facility: [facility] Address: [address] [place] [address] Performed By: #### 2 4356-8 ####[facility] LABIA [id number] [place] [address] [place] Bilirubin Ql (U) Negative Normal Negative [facility] Comment on above: Order Comment: Speci men Type: URINE SPECIMENOrdering Facility: [facility] Address: [address] [place] [address] Performed By: #### 2 4356-8 ####[facility] LABCLIA [id number] [place] [address] [place] Clarity (Unsp spec) Clear Normal Clear [facility] Comment on above: Order Comment: Speci men Type: URINE SPECIMENOrdering Facility: [facility] Address: [address] [place] [address] Performed By: #### 2 4356-8 ####[facility] LABCLIA [id number] [place] [address] [place] Color (U) Yellow Normal Yellow [facility] Comment on above: Order Comment: Speci men Type: URINE SPECIMENOrdering Facility: [facility] Address: [address] [place] [address] Performed By: #### 2 4356-8 ####[facility] LABIA [id number] [place] [address] [place] Epithelial cells LM.HPF (Urine sed) [#/Area] None Seen Normal [facility] Comment on above: Order Comment: Speci men Type: URINE SPECIMENOrdering Facility: [facility] Address: [address] [place] [address] Performed By: #### 2 4356-8 ####[facility] LABIA [id number] [place] [address] [place] Glucose Test strip (U) [Mass/Vol] Negative Normal Negative [facility] Comment on above: Order Comment: Speci men Type: URINE SPECIMENOrdering Facility: [facility] Address: [address] [place] [address] Performed By: #### 2 4356-8 ####[facility] LABIA [id number] [place] [address] [place] Hemoglobin Ql (U) Negative Normal Negative [facility] Comment on above: Order Comment: Speci men Type: URINE SPECIMENOrdering Facility: [facility] Address: [address] [place] [address] Performed By: #### 2 4356-8 ####[facility] LABIA [id number] [place] [address] [place] Hyaline casts (Urine sed) [#/Area] 0 /[LPF] Normal 0 /LPF [facility] Comment on above: Order Comment: Speci men Type: URINE SPECIMENOrdering Facility: [facility] Address: [address] [place] [address] Performed By: #### 2 4356-8 ####[facility] LABCLIA [id number] [place] [address] [place] Ketones Ql (U) Negative Normal Negative [facility] Comment on above: Order Comment: Speci men Type: URINE SPECIMENOrdering Facility: [facility] Address: [address] [place] [address] Performed By: #### 2 4356-8 ####[facility] LABCLIA [id number] [place] [address] [place] Leukocyte esterase Test strip Ql (U) Negative Normal Negative [facility] Comment on above: Order Comment: Speci men Type: URINE SPECIMENOrdering Facility: [facility] Address: [address] [place] [address] Performed By: #### 2 4356-8 ####[facility] LABCLIA [id number] [place] [address] [place] Nitrite Ql (U) Negative Normal Negative [facility] Comment on above: Order Comment: Speci men Type: URINE SPECIMENOrdering Facility: [facility] Address: [address] [place] [address] Performed By: #### 2 4356-8 ####[facility] LABCLIA [id number] [place] [address] [place] pH (U) 6.0 [pH] Normal <8.5 [facility] Comment on above: Order Comment: Speci men Type: URINE SPECIMENOrdering Facility: [facility] Address: [address] [place] [address] Performed By: #### 2 4356-8 ####[facility] LABCLIA [id number] [place] [address] [place] Protein (U) [Mass/Vol] Negative Normal Negative [facility] Comment on above: Order Comment: Speci men Type: URINE SPECIMENOrdering Facility: [facility] Address: [address] [place] [address] Performed By: #### 2 4356-8 ####[facility] LABIA [id number] [place] [address] [place] RBC LM.HPF (Urine sed) [#/Area] 0-2 /HPF Normal 0-2 /HPF [facility] Comment on above: Order Comment: Speci men Type: URINE SPECIMENOrdering Facility: [facility] Address: [address] [place] [address] Performed By: #### 2 4356-8 ####[facility] LABIA [id number] [place] [address] [place] Specific gravity (U) [Rel density] 1.014 Normal 1.005-1.030 [facility] Comment on above: Order Comment: Speci men Type: URINE SPECIMENOrdering Facility: [facility] Address: [address] [place] [address] Performed By: #### 2 4356-8 ####[facility] LABIA [id number] [place] [address] [place] Urobilinogen Ql (U) 0.2 EU/dL Normal 0.2-1.0 EU/dL [facility] Comment on above: Order Comment: Speci men Type: URINE SPECIMENOrdering Facility: [facility] Address: [address] [place] [address] Performed By: #### 2 4356-8 ####[facility] LABIA [id number] [place] [address] [place] WBC LM.HPF (Urine sed) [#/Area] 0-5 /HPF Normal 0-5 /HPF [facility] Comment on above: Order Comment: Speci men Type: URINE SPECIMENOrdering Facility: [facility] Address: [address] [place] [address] Performed By: #### 2 4356-8 ####[facility] LABIA [id number] [address] [address], [place] [address] [place] US KIDNEY/BLADDERon 01-12-20 [facility] XR Chest PA and Lateralon IMPRESSION: Persistent elevation of the left hemidiaphragm. No focal lung consolidation. Campus Rep: MANOJ Transcribe Date/Time: Sep 18 2022 3:44P Dictated by : NHUNG BARKER MD This examination was interpreted and the report reviewed and electronically signed by: NHUNG BARKER MD on Sep 18 2022 3:44PM [facility] DIVISION OF RADIOLOGY * * *Final Report* * * DATE OF EXAM: Sep 18 2022 1:20PM WOX [id number] - XR CHEST 2V FRONTAL/LAT / PROCEDURE REASON: Acute cough * * * * Physician Interpretation * * * * EXAMINATION: CHEST RADIOGRAPH (2 VIEW FRONTAL & LATERAL) CLINICAL HISTORY: Acute cough MQ: XC2_6 EXAM DATE/TIME: 09/18/2022 1:20 PM COMPARISON: Chest radiograph dated 11/06/2016 RESULT: Lines, tubes, and devices: None. Lungs and pleura: Elevation of the left hemidiaphragm. No focal lung consolidation. No significant pleural effusion or pneumothorax. Cardiomediastinal silhouette: Stable cardiomediastinal silhouette. Bones and soft tissues: Degenerative changes are present within the thoracic spine. DIVISION OF RADIOLOGY Provider, [facility] - 09/18/2022 * * *Final Report* * * DATE OF EXAM: Sep 18 2022 1:20PM WOX [id number] - XR CHEST 2V FRONTAL/LAT / PROCEDURE REASON: Acute cough * * * * Physician Interpretation * * * * EXAMINATION: CHEST RADIOGRAPH (2 VIEW FRONTAL & LATERAL) CLINICAL HISTORY: Acute cough MQ: XC2_6 EXAM DATE/TIME: 09/18/2022 1:20 PM COMPARISON: Chest radiograph dated 11/06/2016 RESULT: Lines, tubes, and devices: None. Lungs and pleura: Elevation of the left hemidiaphragm. No focal lung consolidation. No significant pleural effusion or pneumothorax. Cardiomediastinal silhouette: Stable cardiomediastinal silhouette. Bones and soft tissues: Degenerative changes are present within the thoracic spine. IMPRESSION IMPRESSION: Persistent elevation of the left hemidiaphragm. No focal lung consolidation. Campus Rep: PSCB Transcribe Date/Time: Sep 18 2022 3:44P Dictated by : NHUNG BARKER MD This examination was interpreted and the report reviewed and electronically signed by: NHUNG BARKER MD on Sep 18 2022 3:44PM EST [facility] Radiology Study observation (narrative) [facility] XR Chest PA and LateralOrder ed By: [facility] Provider on 09-18-2022 [facility], URINE (POC)on 2021 BILIRUBIN UA (POCT) Negative Negative [facility] CLARITY UA (POCT) Clear [facility] COLOR UA (POCT) Yellow [facility] GLUCOSE UA (POCT) Negative Negative mg/dL [facility] HEMOGLOBIN/BLOOD UA (POCT) Negative Negative [facility] KETONE UA (POCT) Negative Negative mg/dL [facility] LEUKOCYTES UA (POCT) Negative Negative [facility] NITRITE UA (POCT) Negative Negative [facility] PH UA (POCT) 5.5 4.5 - 8.0 [facility] Protein Ql (U) Negative Negative mg/dL [facility] SPECIFIC GRAVITY UA (POCT) 1.010 1.005 - 1.030 [facility] UROBILINOGEN UA (POCT) 0.2 E.U./dL Normal E.U./dL [facility] UA DIP, URINE (POC)on 2021 BILIRUBIN UA (POCT) Negative Negative [facility] CLARITY UA (POCT) Clear [facility] COLOR UA (POCT) Yellow [facility] GLUCOSE UA (POCT) Negative Negative mg/dL [facility] HEMOGLOBIN/BLOOD UA (POCT) Negative Negative [facility] KETONE UA (POCT) Negative Negative mg/dL [facility] LEUKOCYTES UA (POCT) Negative Negative [facility] NITRITE UA (POCT) Negative [facility] PH UA (POCT) 5.5 4.5 - 8.0 [facility] Protein Ql (U) Negative Negative mg/dL [facility] SPECIFIC GRAVITY UA (POCT) 1.010 1.005 - 1.030 [facility] UROBILINOGEN UA (POCT) 0.2 E.U./dL Normal E.U./dL [facility] CBC panel Auto (Bld)on 08-08 Erythrocyte distribution width (RBC) [Ratio] 13.6 % 11.5 - 15.0 % [facility] Hematocrit (Bld) [Volume fraction] 48.5 % 39.0 - 51.0 % [facility] Hemoglobin (Bld) [Mass/Vol] 15.7 g/dL 13.0 - 17.0 g/dL [facility] MCH (RBC) [Entitic mass] 27.8 pg 26.0 - 34.0 pg [facility] MCHC (RBC) [Mass/Vol] 32.4 g/dL 30.5 - 36.0 g/dL [facility] MCV (RBC) [Entitic vol] 86.0 fL 80.0 - 100.0 fL [facility] Nucleated RBC (Bld) [#/Vol] 10*3/uL <0.01 k/uL [facility] Platelet mean volume (Bld) [Entitic vol] 9.8 fL 9.0 - 12.7 fL [facility] Hospital Platelets (Bld) [#/Vol] 211 10*3/uL 150 - 400 k/uL [facility] RBC (Bld) [#/Vol] 5.64 10*6/uL 4.20 - 6.0 0 m/uL [facility] WBC (Bld) [#/Vol] 6.62 10*3/uL 3.70 - 11. 00 k/uL [facility] CNOVon 06-26-2018 CNOV Office Visit (AGCARDPHRA) -------- QIAN PINK ([id number]) 1940 M Date Time Provider Department 06/26/18 11:20 AM JUAN MANUEL ALVARADO During your visit today, we recorded the following information about you: Pulse Blood pressure Weight Height 61/minute 142/80 86.2 kg 1.778 m Juan Manuel Alvarado MD 06/26/2018 1:19 PM Signed PRIMARY CARE PHYSICIAN: Jenae Savage MD [address] [place] [address] REFERRING PHYSICIAN: Ralph Garcia MD ([facility]) [address] [facility] [id number] Patient Care Team: Jenae Savage as PCP - General (Family Practice) Ralph Garcia as Specialty Towel Hemmer (Cardiology) Juan Manuel Alvarado as Specialty [place]el Hemmer (Cardiology) CHIEF COMPLAINT: Evaluation of arrhythmia HISTORY OF PRESENT ILLNESS: Mr. Pink is a 77 year old male who presents today with his for evaluation of arrhythmia. He states that he has been and continues to be very active. 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 He exercises frequently, such as taking long walks with his . In mid May this year, he experienced an episode of loss of consciousness. He states he had worked hard hauling lumber in the morning, and then he took a nap. He got up from the nap and walked toward the front door and suddenly felt dizzy and then briefly passed out. He was not experiencing palpitations, shortness breath, chest pain or severe lightheadedness prior to passing out he thought that this was most likely due to the fact that he had not kept himself very well hydrated. He presented to [facility] ER. An EKG revealed mild tachycardia that was interpreted as junctional tachycardia. He was evaluated by a form stripper, Dr. Garcia. An echocardiogram was unremarkable. An exercise stress test did not reveal evidence for ischemia, but he did have narrow complex tachycardia at about 142 bpm at peak exercise and into early recovery. This was not associated with substantial symptoms. He was noted by EKG to have a long first-degree AV block. There was some concern about whether the arrhythmia and/or AV block may have contributed to his syncope. He is referred for evaluation. He states that since May he has not experienced any additional episodes of loss of consciousness, and has not experienced severe lightheadedness, near-syncope or syncope. He denies chest pain, shortness of breath, orthopnea, palpitations, PND. PAST MEDICAL HISTORY Diagnosis Date - Benign neoplasm of colon - Bronchitis - Diabetes mellitus, type 2 (HCC) diet controlled - Diverticulosis of small intestine (without mention of hemorrhage) - First degree atrioventricular block - Hypertensive kidney disease, benign - Internal hemorrhoids without mention of complication - Pure hypercholesterolemia - Sinusitis - SVT (supraventricular tachycardia) (HCC) - Syncope PAST SURGICAL HISTORY Procedure Laterality Date - COLONOSCOP W/ OR W/O [facility] SPEC 03/18/2001 Colonoscopy - COLONOSCOP W/ OR W/O [facility] SPEC 10/24/12 Colonoscopy - COLONOSCOPY W/BX 04/24/2006 - CYSTO.PANENDO 08/21/2002 Cystoscopy; Dr. Ortiz Meza. - ECHOCARDIOGRAM 05/23/2018 normal LV systolic fxn; LVEF 65%; stage I diastolic dysfxn; no substantial valvular abnormalities - LAPAROSCOPIC CHOLEYCYSTECTOMY Cholecystectomy, lap - STRESS TEST EXERCISE-NUCLEAR 05/24/2018 [place]rie protocol 8 min 46 sec; 104% MPHR; 10.1 METs; narrow complex tachycardia in late peak and early recovery stages, 140s bpm - TRANSURETHRAL ELEC-SURG PROSTATECTOM 10/2012 TURP SOCIAL HISTORY Social History Tobacco Use - Smoking status: Former Smoker Packs/day: 0.50 Years: 10.00 Pack years: 5.00 Start date: 1968 Last attempt to quit: 1978 Years since quittin.2 - Smokeless tobacco: Never Used - Tobacco comment: quit 50 years ago Substance Use Topics - Alcohol use: No - Drug use: No FAMILY HISTORY Problem Relation Age of Onset - Stroke Mother dm - Hypertension Mother - Diabetes Mother - Heart disease Mother - Heart Father dm - Heart disease Father - Diabetes Father - Diabetes Sister - Diabetes Sister - Heart Brother dm - Diabetes Brother - other (brain cancer) Brother dm ALLERGIES: ALLERGIES No Known Allergies MEDICATIONS: sildenafil (REVATIO) 20 mg tablet, Take 1 tablet by mouth as directed. 1-5 tablets taken on empty stomach and with sexual stimulation following. simvastatin (ZOCOR) 40 mg tablet, Take 1 tablet by mouth daily at bedtime. lisinopril (ZESTRIL, PRINIVIL) 10 mg tablet, Take 1 tablet by mouth once daily. omeprazole (PRILOSEC) 20 mg capsule, TAKE 1 CAPSULE DAILY 1/2 HOUR BEFORE BREAKFAST Lancets lancets, Test blood sugar(s) 1 times daily. Dx: Type 2 DM - Controlled E11.9 Insulin: No COMPOUNDED PRESCRIPTION, Glucometer with test strips (whatever is covered by insurance) Dx: E11.9 Testing once per day Aspirin 81 mg Tab, Take 81 mg by mouth once daily. MULTIVITAMIN TAB, Take one(1) tablet daily. REVIEW OF SYSTEMS: PAIN ASSESSMENT: Negative for pain, history of chronic pain, or current treatment for a chronic pain condition. GENERAL: Negative for: Weight loss or gain, Fever or Chills, Weakness and Sleep difficulties. HEENT: Negative for:Impaired Vision, Hearing Impairment, Nosebleeds and Bleeding Gums NECK: Negative for: Swelling, Pain, Stiffness RESPIRATORY: Negative for: Cough, Blood in Sputum, Shortness of breath, Wheezing, Apnea GASTROINTESTINAL: Negative for: Trouble swallowing, Heartburn, Change in bowel habits, Blood in stool, Dark black stools MUSCULOSKELETAL: Negative for: Muscle or joint pain, stiffness, Joint swelling NEUROLOGIC/PSYCHIATRIC: Negative for: Weakness, Paralysis, Numbness, Tingling, Tremor, Nervousness or anxiety, Depressed mood, Memory loss SKIN: Negative for: Rash, Itching HEMATOLOGICAL/LYMPHATIC: Negative for: Easy bruising, Easy bleeding ENDOCRINE: Negative for: Heat or Cold Intolerance, Excessive Sweating, Frequent Urination, Frequent Thirst PHYSICAL EXAMINATION: BP 142/80 Pulse 61 Ht 5' 10 (1.78m) Wt 190 lb (86.2kg) SpO2 98% BMI 27.26 kg/(m2). General: Well appearing, in no acute distress, speaking in complete sentences. Skin: No clubbing, no cyanosis. Eyes: Extra ocular movements intact, Non-icteric sclerae Neck: no jugular venous distention, Lungs: Clear to auscultation bilaterally, no wheezing or rhonchi. Heart: Regular rhythm, S1, S2 normal, no rub , no murmur Abdomen: Soft, nontender, bowel sounds normal Extremities: No peripheral edema . Grade 2/4 distal pulses bilaterally. Neuro: Oriented to person, place and time, alert, cooperative, gait coordinated. CARDIOVASCULAR MEDICINE TESTING: Electrocardiogram: Sinus bradycardia 54 bpm; first-degree AV block (TN 286 ms); incomplete right bundle branch block (QRS 96 ms); voltage criteria for LVH I have personally reviewed the Electrocardiogram. ASSESSMENT/PLAN: 1. Syncope and collapse - ICD9: 780.2, ICD10: R55 (primary diagnosis) Probably vasovagal, less likely due to arrhythmia or AV block; if recurs, recommend cardiac event monitoring to establish symptom-rhythm correlation 2. First degree atrioventricular block - ICD9: 426.11, ICD10: I44.0 This is probably the cause of the appearance of some EKGs to be accelerated junctional, as the prolonged AV conduction allows the P waves to be obscured by the previous QRST complex (in some tracings the P wave is evident just within the previous T wave) 3. SVT (supraventricular tachycardia) (HCC) - ICD9: 427.89, ICD10: I47.1 Unclear if this was SVT or sinus vs atrial tachycardia (prolonged AV conduction obscures the possible P wave in preceding QRST complex); in any event, he is not having recurrent symptomatic tachycardia so would not recommend treatment at this time IMPRESSION: Mr. Pink seems to be doing well from a heart rhythm standpoint. I do not feel that he has potentially dangerous arrhythmias, or any ominous or advanced forms of AV block. He does have a moderate degree of first-degree AV block and this can be monitored over time for any kind of progression. As noted above, if he has recurrent syncope we can prescribe cardiac event monitoring to see if there is a heart rate or rhythm cause. I do think that the syncopal episode was most likely vasovagal however. Regarding the presence of tachycardia or some type of SVT, I think that most likely he had sinus tachycardia with the P waves obscured by the previous QRST complex. During the cardiac stress testing he might of had a run of more rapid sinus tachycardia or perhaps atrial tachycardia, although I cannot be entirely sure that this wasn't a reentrant SVT. Regardless, treatment for SVT would be indicated primarily for control of excessively bothersome symptoms. He is not experiencing such symptoms so for now I would not recommend treatment. I do agree that if he requires treatment for recurrent symptomatic SVT and the treatment options would be limited as the first line medical treatments such as beta blockers and non-dihydropyridine calcium channel blockers would potentially worsen the AV conduction. So if he were to have recurrent symptomatic SVT we might consider catheter ablation as an earlier treatment option rather than medical therapy. I had a very detailed discussion with Mr. Pink and his regarding my evaluation and recommendations. He was very pleased to hear that I did not recommend cardiac pacing or any invasive cardiac procedures, or any specific medical therapy. He was also pleased to hear that he does not seem to have anything potentially dangerous or ominous, and in particular does not have anything that would adversely effect his prognosis. I do not recommend any activity restrictions, and he was very pleased to hear that as well, as he wishes to remain very active as he has been doing. After our discussion, Mr. Pink and his expressed their understanding and I answered all of their questions to their apparent satisfaction. PLAN AND RECOMMENDATIONS: See above for recommendations. He should continue to follow up with Dr. Garcia, and can follow up with me as needed at Dr. Garcia's discretion. Juan Manuel Alvarado MD 06/25/2018 Imani Parker CMA 06/26/2018 11:29 AM Signed No cardiac complaints today. MELINDA Portillo MD 06/26/2018 11:56 AM Signed Heart Rhythm Problem (Arrhythmia) What is arrhythmia? Arrhythmia is an abnormal rhythm of your heartbeat. Your heart may beat faster or more slowly than normal, or it may skip beats. This can make it harder for the heart to pump enough blood to your body. Another term for arrhythmia is dysrhythmia. What is the cause? An electrical signal in your heart starts each heartbeat, causing the heart muscle to squeeze (contract). Normally, this signal starts in the upper right chamber of the heart (the right atrium) at a place called the sinus node. The signal then follows normal pathways to the upper left atrium and to the lower chambers of the heart (the ventricles). You may have an abnormal heart rhythm if the electrical signals don?t follow the normal pathways or the nerve cells that make the electrical signals don?t work right. Common causes of heart rhythm problems are conditions that damage the heart, like coronary artery disease, heart attack, or heart failure. Problems with the heart valves are another common cause. The heart has 4 valves that open and close with each heartbeat to help blood flow in the right direction through the heart. Some other causes of heart rhythm problems include: -Health problems, such as a stroke, lung disease, diabetes, overactive thyroid gland, or high blood pressure -Abuse of alcohol or drugs, such as cocaine -Some medicines, such as cold medicines -Some natural remedies, such as ephedra, guarana, and licorice Exercise or emotional stress can make your heart beat faster or skip beats, but this is usually not a cause for concern. Sometimes no cause for arrhythmia can be found. What are the different types of arrhythmia? There are many different types of arrhythmia. The heart may beat very slowly (bradycardia) or very fast (tachycardia). The abnormal rhythm may start in either the upper or the lower heart chambers. The 2 main types of arrhythmia are: -Atrial arrhythmia: The electrical signals don?t start in the normal place in the right atrium and don?t travel normally. This can cause part or all of the heart to beat very fast and not in a normal pattern. This affects the ability of the heart to pump blood to the rest of the body. -Ventricular arrhythmia: The abnormal rhythm starts in the lower chambers of the heart. The heart beats in a rhythm that may be irregular or very fast. If severe and untreated, it can be life-threatening. What are the symptoms? Some arrhythmias do not cause any symptoms, or the symptoms may come and go. Your body may simply adjust to the change in rhythm over time. When you do have symptoms, they may include: -Feeling like your heart is beating too fast or too hard or skipping beats or fluttering -Feeling dizzy or lightheaded -Fainting -Feeling tired or weak -Chest pain -Shortness of breath How is it diagnosed? Your healthcare provider will ask about your symptoms and medical history and examine your heart and lungs. Tests may include: -An ECG (also called an EKG), which measures and records your heartbeat. You may have an ECG while you are resting or while you exercise on a treadmill. You may also be asked to wear a small portable ECG monitor for a few days or sometimes a couple weeks. -Blood tests -Chest X-ray -An echocardiogram, which uses sound waves (ultrasound) to show the structures of the heart and how well the heart muscle is pumping -An angiogram, which uses dye injected into a vein and X-rays to look for narrowing or blockages of blood vessels -An electrophysiology study (EPS), which uses tiny wires put into your heart through your veins to look at the electrical pathways in your heart How is it treated? The goal of treatment is to help the heart keep a normal rhythm. The right treatment for you depends on the cause of the arrhythmia, how often you have symptoms, and the severity of your symptoms. If you have no symptoms, or your symptoms are fairly mild, you may not need treatment. If a health problem like a leaky heart valve or heart failure is causing the arrhythmia, treating the health problem may also treat the arrhythmia. Other possible treatments are: -Medicine to control the heart rate -Surgery to: ?Make small cuts or scars in the heart that will block abnormal electrical pathways (cardiac ablation) ?Put an electronic device, such as a pacemaker, under the skin in your chest to help control the heartbeat ?Improve blood flow to the heart if you have coronary artery disease (bypass surgery) How can I take care of myself? Follow your healthcare provider's instructions. Ask your provider: -How and when you will hear your test results -How long it will take to recover -What activities you should avoid and when you can return to your normal activities -How to take care of yourself at home -What symptoms or problems you should watch for and what to do if you have them Make sure you know when you should come back for a checkup. How can I help prevent arrhythmia? The best prevention is to have a heart-healthy lifestyle: -Keep a healthy weight. -Eat a healthy diet. -Stay fit with the right kind of exercise for you. -Decrease stress. -Don?t smoke. -Limit your use of alcohol. Let your healthcare provider know if you have a family history of arrhythmia. If you have heart disease or high blood pressure, follow your healthcare provider's instructions for treatment. Developed by [employer] Published by [employer] Copyright ?2013 [employer] and/or one of its subsidiaries. All rights reserved. Referring Provider: RALPH GARCIA [[id number]] Allergies As of Date: 06/26/2018 (No Known Allergies) Date Reviewed: 06/26/2018 Reviewed by: Juan Manuel Alvarado - Fully Assessed Reason for Visit: New Patient [[id number]] Cmt: ref from Dr. Garcia for SVT Primary Visit Diagnosis:Syncope and collapse [R55] Other Visit Diagnoses:First degree atrioventricular block [I44.0] SVT (supraventricular tachycardia) (HCC) [I47.1] Order(s):ECG B/O W INTERP (MED OFFICE) [ECG06] Order #: [id number] Prescriptions as of 06/26/2018 Sig: SILDENAFIL (ANTIHYPERTENSIVE)* Take 1 tablet by mouth as dir* SIMVASTATIN 40 MG TABLET Take 1 tablet by mouth daily * LISINOPRIL 10 MG TABLET Take 1 tablet by mouth once d* OMEPRAZOLE 20 MG CAPSULE,SATYA* TAKE 1 CAPSULE DAILY 1/2 HO* LANCETS Test blood sugar(s) 1 times d* COMPOUNDED PRESCRIPTION Glucometer with test strips (* ASPIRIN 81 MG TABLET Take 81 mg by mouth once viki* MULTIVITAMIN TABLET Take one(1) tablet daily. 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] INVALID FOR* BENIGN HYPERTENSION [I10] INVALID FOR* Type 2 diabetes mellitus without complication, *INVALID FOR* INT HEMORRHOID W/O COMPL [K64.8] Hyperlipidemia, unspecified [E78.5] INVALID FOR* Urinary retention with incomplete bladder empty*INVALID FOR* Enuresis [F98.0] INVALID FOR* Renal insufficiency [N28.9] INVALID FOR* BPH with obstruction/lower urinary tract sympto*INVALID FOR* Renal calcification [N28.89] INVALID FOR* Renal cyst [N28.1] INVALID FOR* IPMN (intraductal papillary mucinous neoplasm) *INVALID FOR* First degree atrioventricular block [I44.0] INVALID FOR* Syncope and collapse [R55] INVALID FOR* Syncope [R55] Other instructions from your clinician: Heart Rhythm Problem (Arrhythmia) What is arrhythmia? Arrhythmia is an abnormal rhythm of your heartbeat. Your heart may beat faster or more slowly than normal, or it may skip beats. This can make it harder for the heart to pump enough blood to your body. Another term for arrhythmia is dysrhythmia. What is the cause? An electrical signal in your heart starts each heartbeat, causing the heart muscle to squeeze (contract). Normally, this signal starts in the upper right chamber of the heart (the right atrium) at a place called the sinus node. The signal then follows normal pathways to the upper left atrium and to the lower chambers of the heart (the ventricles). You may have an abnormal heart rhythm if the electrical signals don?t follow the normal pathways or the nerve cells that make the electrical signals don?t work right. Common causes of heart rhythm problems are conditions that damage the heart, like coronary artery disease, heart attack, or heart failure. Problems with the heart valves are another common cause. The heart has 4 valves that open and close with each heartbeat to help blood flow in the right direction through the heart. Some other causes of heart rhythm problems include: -Health problems, such as a stroke, lung disease, diabetes, overactive thyroid gland, or high blood pressure -Abuse of alcohol or drugs, such as cocaine -Some medicines, such as cold medicines -Some natural remedies, such as ephedra, guarana, and licorice Exercise or emotional stress can make your heart beat faster or skip beats, but this is usually not a cause for concern. Sometimes no cause for arrhythmia can be found. What are the different types of arrhythmia? There are many different types of arrhythmia. The heart may beat very slowly (bradycardia) or very fast (tachycardia). The abnormal rhythm may start in either the upper or the lower heart chambers. The 2 main types of arrhythmia are: -Atrial arrhythmia: The electrical signals don?t start in the normal place in the right atrium and don?t travel normally. This can cause part or all of the heart to beat very fast and not in a normal pattern. This affects the ability of the heart to pump blood to the rest of the body. -Ventricular arrhythmia: The abnormal rhythm starts in the lower chambers of the heart. The heart beats in a rhythm that may be irregular or very fast. If severe and untreated, it can be life-threatening. What are the symptoms? Some arrhythmias do not cause any symptoms, or the symptoms may come and go. Your body may simply adjust to the change in rhythm over time. When you do have symptoms, they may include: -Feeling like your heart is beating too fast or too hard or skipping beats or fluttering -Feeling dizzy or lightheaded -Fainting -Feeling tired or weak -Chest pain -Shortness of breath How is it diagnosed? Your healthcare provider will ask about your symptoms and medical history and examine your heart and lungs. Tests may include: -An ECG (also called an EKG), which measures and records your heartbeat. You may have an ECG while you are resting or while you exercise on a treadmill. You may also be asked to wear a small portable ECG monitor for a few days or sometimes a couple weeks. -Blood tests -Chest X-ray -An echocardiogram, which uses sound waves (ultrasound) to show the structures of the heart and how well the heart muscle is pumping -An angiogram, which uses dye injected into a vein and X-rays to look for narrowing or blockages of blood vessels -An electrophysiology study (EPS), which uses tiny wires put into your heart through your veins to look at the electrical pathways in your heart How is it treated? The goal of treatment is to help the heart keep a normal rhythm. The right treatment for you depends on the cause of the arrhythmia, how often you have symptoms, and the severity of your symptoms. If you have no symptoms, or your symptoms are fairly mild, you may not need treatment. If a health problem like a leaky heart valve or heart failure is causing the arrhythmia, treating the health problem may also treat the arrhythmia. Other possible treatments are: -Medicine to control the heart rate -Surgery to: ?Make small cuts or scars in the heart that will block abnormal electrical pathways (cardiac ablation) ?Put an electronic device, such as a pacemaker, under the skin in your chest to help control the heartbeat ?Improve blood flow to the heart if you have coronary artery disease (bypass surgery) How can I take care of myself? Follow your healthcare provider's instructions. Ask your provider: -How and when you will hear your test results -How long it will take to recover -What activities you should avoid and when you can return to your normal activities -How to take care of yourself at home -What symptoms or problems you should watch for and what to do if you have them Make sure you know when you should come back for a checkup. How can I help prevent arrhythmia? The best prevention is to have a heart-healthy lifestyle: -Keep a healthy weight. -Eat a healthy diet. -Stay fit with the right kind of exercise for you. -Decrease stress. -Don?t smoke. -Limit your use of alcohol. Let your healthcare provider know if you have a family history of arrhythmia. If you have heart disease or high blood pressure, follow your healthcare provider's instructions for treatment. Developed by [employer] Published by [employer] Copyright ?2014 [employer] and/or one of its subsidiaries. All rights reserved. Visit Notes: >> Imani Parker SunJun 26, 2018 11:21 AM Status: Signed No cardiac complaints today. Imani Parker CMA Medications Discontinued During This Encounter Blood Sugar Diagnostic, Drum (ACCU-C* 100 * 11 03/09/2016 06/26/2018 Sig: Test blood sugar once a day DX: DM E11.9 Patient not taking: Reported on 06/26/2018 Disc: Course of therapy completed fluticasone (FLONASE) 50 mcg/actuati* 1 Sunny* 11 03/08/2017 06/26/2018 Route: EACH NOSTRIL Sig: Use 2 Sprays in each nostril once daily. Rinse mouth after use. Patient not taking: Reported on 06/26/2018 Disc: Course of therapy completed fluticasone (FLONASE) 50 mcg/actuati* 1 Usnny* 11 03/08/2017 06/26/2018 Route: EACH NOSTRIL Sig: Use 2 Sprays in each nostril once daily. Rinse mouth after use. Patient not taking: Reported on 06/26/2018 Disc: Course of therapy completed Blood [facility], Drum (ACCU-C* 100 * 11 03/09/2016 06/26/2018 Sig: Test blood sugar once a day DX: DM E11.9 Patient not taking: Reported on 06/26/2018 Disc: Course of therapy completed Disposition: Return if symptoms worsen or fail to improve. Follow-up and Disposition History Recorded Letter Text Encounter Status:Closed by JUAN MANUEL ALVARADO MD on 06/26/18 [facility] PROGRESSon 06-26-2018 Protein mass conc HNO ID: [id number] Author: Juan Manuel Alvarado Service: ? Author Type: Physician Type: Progress Notes Filed: 06/26/2018 1:19 PM Note Text: PRIMARY CARE PHYSICIAN: Jenae Savage MD [address] [place] [address] REFERRING PHYSICIAN: Ralph Garcia MD ([facility]) [address] [address] Patient Care Team: Jenae Savage as PCP - General (Family Practice) Ralph Garcia as Specialty Towel Hemmer (Cardiology) Juan Manuel Alvarado as Specialty Towel Hemmer (Cardiology) CHIEF COMPLAINT: Evaluation of arrhythmia HISTORY OF PRESENT ILLNESS: Mr. Pink is a 77 year old male who presents today with his for evaluation of arrhythmia. He states that he has been and continues to be very active. 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 He exercises frequently, such as taking long walks with his . In mid May this year, he experienced an episode of loss of consciousness. He states he had worked hard hauling lumber in the morning, and then he took a nap. He got up from the nap and walked toward the front door and suddenly felt dizzy and then briefly passed out. He was not experiencing palpitations, shortness breath, chest pain or severe lightheadedness prior to passing out he thought that this was most likely due to the fact that he had not kept himself very well hydrated. He presented to [facility] ER. An EKG revealed mild tachycardia that was interpreted as junctional tachycardia. He was evaluated by a form stripper, Dr. Garcia. An echocardiogram was unremarkable. An exercise stress test did not reveal evidence for ischemia, but he did have narrow complex tachycardia at about 142 bpm at peak exercise and into early recovery. This was not associated with substantial symptoms. He was noted by EKG to have a long first-degree AV block. There was some concern about whether the arrhythmia and/or AV block may have contributed to his syncope. He is referred for evaluation. He states that since May he has not experienced any additional episodes of loss of consciousness, and has not experienced severe lightheadedness, near-syncope or syncope. He denies chest pain, shortness of breath, orthopnea, palpitations, PND. PAST MEDICAL HISTORY Diagnosis Date - Benign neoplasm of colon - Bronchitis - Diabetes mellitus, type 2 (HCC) diet controlled - Diverticulosis of small intestine (without mention of hemorrhage) - First degree atrioventricular block - Hypertensive kidney disease, benign - Internal hemorrhoids without mention of complication - Pure hypercholesterolemia - Sinusitis - SVT (supraventricular tachycardia) (HCC) - Syncope PAST SURGICAL HISTORY Procedure Laterality Date - COLONOSCOP W/ OR W/O [facility] SPEC 03/18/2001 Colonoscopy - COLONOSCOP W/ OR W/O [facility] SPEC 10/24/12 Colonoscopy - COLONOSCOPY W/BX 04/24/2006 - CYSTO.PANENDO 08/21/2002 Cystoscopy; Dr. Ortiz Meza. - ECHOCARDIOGRAM 05/23/2018 normal LV systolic fxn; LVEF 65%; stage I diastolic dysfxn; no substantial valvular abnormalities - LAPAROSCOPIC CHOLEYCYSTECTOMY Cholecystectomy, lap - STRESS TEST EXERCISE-NUCLEAR 05/24/2018 [facility]rie protocol 8 min 46 sec; 104% MPHR; 10.1 METs; narrow complex tachycardia in late peak and early recovery stages, 140s bpm - TRANSURETHRAL ELEC-SURG PROSTATECTOM 10/2012 TURP SOCIAL HISTORY Social History Tobacco Use - Smoking status: Former Smoker Packs/day: 0.50 Years: 10.00 Pack years: 5.00 Start date: 1968 Last attempt to quit: 1978 Years since quittin.2 - Smokeless tobacco: Never Used - Tobacco comment: quit 50 years ago Substance Use Topics - Alcohol use: No - Drug use: No FAMILY HISTORY Problem Relation Age of Onset - Stroke Mother dm - Hypertension Mother - Diabetes Mother - Heart disease Mother - Heart Father dm - Heart disease Father - Diabetes Father - Diabetes Sister - Diabetes Sister - Heart Brother dm - Diabetes Brother - other (brain cancer) Brother dm ALLERGIES: ALLERGIES No Known Allergies MEDICATIONS: sildenafil (REVATIO) 20 mg tablet, Take 1 tablet by mouth as directed. 1-5 tablets taken on empty stomach and with sexual stimulation following. simvastatin (ZOCOR) 40 mg tablet, Take 1 tablet by mouth daily at bedtime. lisinopril (ZESTRIL, PRINIVIL) 10 mg tablet, Take 1 tablet by mouth once daily. omeprazole (PRILOSEC) 20 mg capsule, TAKE 1 CAPSULE DAILY 1/2 HOUR BEFORE BREAKFAST Lancets lancets, Test blood sugar(s) 1 times daily. Dx: Type 2 DM - Controlled E11.9 Insulin: No COMPOUNDED PRESCRIPTION, Glucometer with test strips (whatever is covered by insurance) Dx: E11.9 Testing once per day Aspirin 81 mg Tab, Take 81 mg by mouth once daily. MULTIVITAMIN TAB, Take one(1) tablet daily. REVIEW OF SYSTEMS: PAIN ASSESSMENT: Negative for pain, history of chronic pain, or current treatment for a chronic pain condition. GENERAL: Negative for: Weight loss or gain, Fever or Chills, Weakness and Sleep difficulties. HEENT: Negative for:Impaired Vision, Hearing Impairment, Nosebleeds and Bleeding Gums NECK: Negative for: Swelling, Pain, Stiffness RESPIRATORY: Negative for: Cough, Blood in Sputum, Shortness of breath, Wheezing, Apnea GASTROINTESTINAL: Negative for: Trouble swallowing, Heartburn, Change in bowel habits, Blood in stool, Dark black stools MUSCULOSKELETAL: Negative for: Muscle or joint pain, stiffness, Joint swelling NEUROLOGIC/PSYCHIATRIC: Negative for: Weakness, Paralysis, Numbness, Tingling, Tremor, Nervousness or anxiety, Depressed mood, Memory loss SKIN: Negative for: Rash, Itching HEMATOLOGICAL/LYMPHATIC: Negative for: Easy bruising, Easy bleeding ENDOCRINE: Negative for: Heat or Cold Intolerance, Excessive Sweating, Frequent Urination, Frequent Thirst PHYSICAL EXAMINATION: BP 142/80 Pulse 61 Ht 5' 10 (1.78m) Wt 190 lb (86.2kg) SpO2 98% BMI 27.26 kg/(m2). General: Well appearing, in no acute distress, speaking in complete sentences. Skin: No clubbing, no cyanosis. Eyes: Extra ocular movements intact, Non-icteric sclerae Neck: no jugular venous distention, Lungs: Clear to auscultation bilaterally, no wheezing or rhonchi. Heart: Regular rhythm, S1, S2 normal, no rub , no murmur Abdomen: Soft, nontender, bowel sounds normal Extremities: No peripheral edema . Grade 2/4 distal pulses bilaterally. Neuro: Oriented to person, place and time, alert, cooperative, gait coordinated. CARDIOVASCULAR MEDICINE TESTING: Electrocardiogram: Sinus bradycardia 54 bpm; first-degree AV block (TN 286 ms); incomplete right bundle branch block (QRS 96 ms); voltage criteria for LVH I have personally reviewed the Electrocardiogram. ASSESSMENT/PLAN: 1. Syncope and collapse - ICD9: 780.2, ICD10: R55 (primary diagnosis) Probably vasovagal, less likely due to arrhythmia or AV block; if recurs, recommend cardiac event monitoring to establish symptom-rhythm correlation 2. First degree atrioventricular block - ICD9: 426.11, ICD10: I44.0 This is probably the cause of the appearance of some EKGs to be accelerated junctional, as the prolonged AV conduction allows the P waves to be obscured by the previous QRST complex (in some tracings the P wave is evident just within the previous T wave) 3. SVT (supraventricular tachycardia) (HCC) - ICD9: 427.89, ICD10: I47.1 Unclear if this was SVT or sinus vs atrial tachycardia (prolonged AV conduction obscures the possible P wave in preceding QRST complex); in any event, he is not having recurrent symptomatic tachycardia so would not recommend treatment at this time IMPRESSION: Mr. Pink seems to be doing well from a heart rhythm standpoint. I do not feel that he has potentially dangerous arrhythmias, or any ominous or advanced forms of AV block. He does have a moderate degree of first-degree AV block and this can be monitored over time for any kind of progression. As noted above, if he has recurrent syncope we can prescribe cardiac event monitoring to see if there is a heart rate or rhythm cause. I do think that the syncopal episode was most likely vasovagal however. Regarding the presence of tachycardia or some type of SVT, I think that most likely he had sinus tachycardia with the P waves obscured by the previous QRST complex. During the cardiac stress testing he might of had a run of more rapid sinus tachycardia or perhaps atrial tachycardia, although I cannot be entirely sure that this wasn't a reentrant SVT. Regardless, treatment for SVT would be indicated primarily for control of excessively bothersome symptoms. He is not experiencing such symptoms so for now I would not recommend treatment. I do agree that if he requires treatment for recurrent symptomatic SVT and the treatment options would be limited as the first line medical treatments such as beta blockers and non-dihydropyridine calcium channel blockers would potentially worsen the AV conduction. So if he were to have recurrent symptomatic SVT we might consider catheter ablation as an earlier treatment option rather than medical therapy. I had a very detailed discussion with Mr. Pink and his regarding my evaluation and recommendations. He was very pleased to hear that I did not recommend cardiac pacing or any invasive cardiac procedures, or any specific medical therapy. He was also pleased to hear that he does not seem to have anything potentially dangerous or ominous, and in particular does not have anything that would adversely effect his prognosis. I do not recommend any activity restrictions, and he was very pleased to hear that as well, as he wishes to remain very active as he has been doing. After our discussion, Mr. Pink and his expressed their understanding and I answered all of their questions to their apparent satisfaction. PLAN AND RECOMMENDATIONS: See above for recommendations. He should continue to follow up with Dr. Garcia, and can follow up with me as needed at Dr. Garcia's discretion. Juan Manuel Alvarado MD 06/25/2018 [facility] Heidi 04-23-2017 [facility] Telephone ([facility]PR[facility]) Andry PINK ([id number]) 1940 MDate Time Provider Department04/23/17 ORTIZ MEZA During your visit today, we recorded the following information about you:Ortiz Meza MD 04/23/2017 8:58 AM [id number] is low riskGood newsLets have him see Amy in one year with Ayanna Maki PA-C 04/23/2017 9:03 AM Luigi send message in [employer].Allergies As of Date: 04/23/2017(No Known Allergies)Date Reviewed: 04/12/2017Reviewed by: Kaylee Morin) ROSY Corley - Fully AssessedReason for Visit: Clinical Update [1735]Prescriptions as of 04/23/2017 Sig: FLUTICASONE 50 MCG/ACTUATION * Use 2 Sprays in each nostril * BENZONATATE 100 MG CAPSULE Take 1 capsule by mouth three* LANCETS Test blood sugar(s) 1 times d* COMPOUNDED PRESCRIPTION Glucometer with test strips (* OMEPRAZOLE 20 MG CAPSULE,SATYA* Take 1 capsule by mouth daily* SIMVASTATIN 40 MG TABLET Take 1 tablet by mouth daily * LISINOPRIL 10 MG TABLET Take 1 tablet by mouth once d* BLOOD SUGAR DIAGNOSTIC, DRUM-* Test blood sugar once a day D* ASPIRIN 81 MG TABLET Take 81 mg by mouth once viki* MULTIVITAMIN TABLET Take one(1) tablet daily.Problem List As Of Date 04/23/2017 Noted Resolved BLADDER NECK OBSTRUCTION [N32.0] INVALID FOR* Benign non-nodular prostatic hyperplasia withou*INVALID FOR* ELEVATED PROSTATE SPECIFIC ANTIGEN [R97.20] INVALID FOR* POLYP COLON, tubular adenoma [D12.6] INVALID FOR* BENIGN HYPERTENSION [I10] INVALID FOR* Type 2 diabetes mellitus without complication, *INVALID FOR* INT HEMORRHOID W/O COMPL [K64.8] Hyperlipidemia, unspecified [E78.5] INVALID FOR* Urinary retention with incomplete bladder empty*INVALID FOR* Enuresis [F98.0] INVALID FOR* Renal insufficiency [N28.9] INVALID FOR* BPH with obstruction/lower urinary tract sympto*INVALID FOR* Renal calcification [N28.89] INVALID FOR* Renal cyst [N28.1] INVALID FOR* IPMN (intraductal papillary mucinous neoplasm) *INVALID FOR* Status:Closed by ORTIZ MEZA MD on 04/23/17 [facility] Vital Signs Date Time Vital Sign Value Performing Clinician Faci litvincent 12-31-2023 14:17-0400 Body mass index (BMI) [Ratio] 27.34 kg/m2 Gary Peteri DO Work Phone: [facility] 12-31-2023 14:17-0400 Body temperature 98.2 [degF] Gary Masci DO Work Phone: [facility] 12-31-2023 14:17-0400 Body weight 86.64 kg Gary Masci DO Work Phone: [facility] 12-31-2023 14:17-0400 Diastolic blood pressure 77 mm[Hg] Gary Masci DO Work Phone: [facility] 12-31-2023 14:17-0400 Heart rate 53 /min Gary Masci DO Work Phone: [facility] 12-31-2023 14:17-0400 SaO2% (BldA) [Mass fraction] 98 % Gary Masci DO Work Phone: [facility] 12-31-2023 14:17-0400 Systolic blood pressure 151 mm[Hg] Gary Masci DO Work Phone: [facility] 11-23-2023 13:04-0400 Body mass index (BMI) [Ratio] 27.06 kg/m2 Rafael Ramirez APRN.DATA ANALYTICS ANALYST Work Phone: [facility] 11-23-2023 13:04-0400 Body weight 85.73 kg Rafael Ramirez APRN.DATA ANALYTICS ANALYST Work Phone: [facility] 11-23-2023 13:04-0400 Diastolic blood pressure 60 mm[Hg] Rafael James CLINICAL RN.DATA ANALYTICS ANALYST Work Phone: [facility] 11-23-2023 13:04-0400 Heart rate 52 /min Rafael James CLINICAL RN.DATA ANALYTICS ANALYST Work Phone: [facility] 11-23-2023 13:04-0400 Respiratory rate 16 /min Rafael James CLINICAL RN.DATA ANALYTICS ANALYST Work Phone: [facility] 11-23-2023 13:04-0400 SaO2% (BldA) [Mass fraction] 98 % Rafael James CLINICAL RN.DATA ANALYTICS ANALYST Work Phone: [facility] 11-23-2023 13:04-0400 Systolic blood pressure 112 mm[Hg] Rafael James CLINICAL RN.DATA ANALYTICS ANALYST Work Phone: [facility] 06-29-2023 13:07-0400 Body temperature 98.71 [degF] Ginger Khan Work Phone: [facility] 06-29-2023 13:07-0400 Body weight 86.18 kg Ginger Khan Work Phone: [facility] 06-29-2023 13:07-0400 Diastolic blood pressure 76 mm[Hg] Ginger Khan Work Phone: [facility] 06-29-2023 13:07-0400 Heart rate 59 /min Ginger Khan Work Phone: [facility] 06-29-2023 13:07-0400 SaO2% (BldA) [Mass fraction] 98 % Ginger Khan Work Phone: [facility] 06-29-2023 13:07-0400 Systolic blood pressure 164 mm[Hg] Ginger Khan Work Phone: [facility] 06-11-2023 10:28-0500 Body weight 86.3 kg Ángel Julio DO Work Phone: [facility] 06-11-2023 10:28-0500 Diastolic blood pressure 76 mm[Hg] Ángel Maditz DO Work Phone: [facility] 06-11-2023 10:28-0500 Heart rate 58 /min Ángel Maditz DO Work Phone: [facility] 06-11-2023 10:28-0500 Respiratory rate 16 /min Ángel Maditz DO Work Phone: [facility] 06-11-2023 10:28-0500 Systolic blood pressure 153 mm[Hg] Ángel Maditz DO Work Phone: [facility] 05-25-2023 13:09-0500 Diastolic blood pressure 80 mm[Hg] Rafael James CLINICAL RN.DATA ANALYTICS ANALYST Work Phone: [facility] 05-25-2023 13:09-0500 Systolic blood pressure 134 mm[Hg] Rafael James CLINICAL RN.DATA ANALYTICS ANALYST Work Phone: [facility] 05-25-2023 12:37-0500 Body weight 85.09 kg Rafael James CLINICAL RN.DATA ANALYTICS ANALYST Work Phone: [facility] 05-25-2023 12:37-0500 Heart rate 57 /min Rafael James CLINICAL RN.DATA ANALYTICS ANALYST Work Phone: [facility] 05-25-2023 12:37-0500 Respiratory rate 16 /min Rafael James CLINICAL RN.DATA ANALYTICS ANALYST Work Phone: [facility] 05-25-2023 12:37-0500 SaO2% (BldA) [Mass fraction] 97 % Rafaelrachel Ramirez CLINICAL RN.DATA ANALYTICS ANALYST Work Phone: [facility] 12-05-2022 11:07-0400 Body height 178 cm Gary Peteri DO Work Phone: [facility] 12-05-2022 11:07-0400 Body temperature 98.4 [degF] Gary Masci DO Work Phone: [facility] 12-05-2022 11:07-0400 Body weight 85.05 kg Gary Peteri DO Work Phone: [facility] 12-05-2022 11:07-0400 Diastolic blood pressure 70 mm[Hg] Gary Peteri DO Work Phone: [facility] 12-05-2022 11:07-0400 Heart rate 60 /min Gary Masci DO Work Phone: [facility] 12-05-2022 11:07-0400 SaO2% (BldA) [Mass fraction] 98 % Gary Masci DO Work Phone: [facility] 12-05-2022 11:07-0400 Systolic blood pressure 149 mm[Hg] Gary Masci DO Work Phone: [facility] 11-24-2022 14:13-0400 Diastolic blood pressure 68 mm[Hg] Rafael James CLINICAL RN.DATA ANALYTICS ANALYST Work Phone: [facility] 11-24-2022 14:13-0400 Systolic blood pressure 118 mm[Hg] Rafael James CLINICAL RN.DATA ANALYTICS ANALYST Work Phone: [facility] 11-24-2022 13:34-0400 Body weight 85.82 kg Rafael James CLINICAL RN.DATA ANALYTICS ANALYST Work Phone: [facility] 11-24-2022 13:34-0400 Heart rate 56 /min Rafael James CLINICAL RN.DATA ANALYTICS ANALYST Work Phone: [facility] 11-24-2022 13:34-0400 Respiratory rate 16 /min Rafael James CLINICAL RN.DATA ANALYTICS ANALYST Work Phone: [facility] 11-24-2022 13:34-0400 SaO2% (BldA) [Mass fraction] 97 % Rafael James CLINICAL RN.DATA ANALYTICS ANALYST Work Phone: [facility] 09-07-2022 09:32-0400 Body weight 83.46 kg Elizabeth Avila CLINICAL RN.DATA ANALYTICS ANALYST Work Phone: [facility] 09-07-2022 09:32-0400 Diastolic blood pressure 60 mm[Hg] Elizabeth Chenf CLINICAL RN.DATA ANALYTICS ANALYST Work Phone: [facility] 09-07-2022 09:32-0400 Heart rate 63 /min Elizabeth Tannhof CLINICAL RN.DATA ANALYTICS ANALYST Work Phone: [facility] 09-07-2022 09:32-0400 Respiratory rate 16 /min Elizabeth Tannhof CLINICAL RN.DATA ANALYTICS ANALYST Work Phone: [facility] 09-07-2022 09:32-0400 SaO2% (BldA) [Mass fraction] 96 % Elizabeth Tannhof CLINICAL RN.DATA ANALYTICS ANALYST Work Phone: [facility] 09-07-2022 09:32-0400 Systolic blood pressure 134 mm[Hg] Elizabeth Tannhof CLINICAL RN.DATA ANALYTICS ANALYST Work Phone: [facility] 05-26-2022 14:27-0500 Diastolic blood pressure 78 mm[Hg] Rafael James CLINICAL RN.DATA ANALYTICS ANALYST Work Phone: [facility] 05-26-2022 14:27-0500 Systolic blood pressure 120 mm[Hg] Rafael James CLINICAL RN.DATA ANALYTICS ANALYST Work Phone: [facility] 05-26-2022 13:33-0500 Body temperature 97.81 [degF] Rafael James CLINICAL RN.DATA ANALYTICS ANALYST Work Phone: [facility] 05-26-2022 13:33-0500 Body weight 85.28 kg Rafael James CLINICAL RN.DATA ANALYTICS ANALYST Work Phone: [facility] 05-26-2022 13:33-0500 Heart rate 61 /min Rafael James CLINICAL RN.DATA ANALYTICS ANALYST Work Phone: [facility] 05-26-2022 13:33-0500 Respiratory rate 16 /min Rafael James CLINICAL RN.DATA ANALYTICS ANALYST Work Phone: [facility] 05-26-2022 13:33-0500 SaO2% (BldA) [Mass fraction] 98 % Rafael James CLINICAL RN.DATA ANALYTICS ANALYST Work Phone: [facility] 05-05-2022 10:00-0500 Body height 177.7 cm Ángel Julio DO Work Phone: [facility] 05-05-2022 10:00-0500 Body weight 84.82 kg Ángel Maditz DO Work Phone: [facility] 05-05-2022 10:00-0500 Diastolic blood pressure 65 mm[Hg] Ángel Maditz DO Work Phone: [facility] 05-05-2022 10:00-0500 Heart rate 58 /min Ángel Maditz DO Work Phone: [facility] 05-05-2022 10:00-0500 Systolic blood pressure 149 mm[Hg] Ángel Maditz DO Work Phone: [facility] 03-08-2022 11:03-0500 Body temperature 97.59 [degF] Doyle Rankin MD Work Phone: [facility] 03-08-2022 11:03-0500 Body weight 84.82 kg Doyle Rankin MD Work Phone: [facility] 03-08-2022 11:03-0500 Diastolic blood pressure 65 mm[Hg] Doyle Rankin MD Work Phone: [facility] 03-08-2022 11:03-0500 Heart rate 53 /min Doyle Rankin MD Work Phone: [facility] 03-08-2022 11:03-0500 Respiratory rate 20 /min Doyle Rankin MD Work Phone: [facility] 03-08-2022 11:03-0500 SaO2% (BldA) [Mass fraction] 98 % Doyle Rankin MD Work Phone: [facility] 03-08-2022 11:03-0500 Systolic blood pressure 150 mm[Hg] Doyle Rankin MD Work Phone: [facility] 11-22-2021 13:03-0400 Body temperature 97.81 [degF] Rafael Ramirez APRN.DATA ANALYTICS ANALYST Work Phone: [facility] 11-22-2021 13:03-0400 Body weight 85.28 kg Rafael Ramirez APRN.DATA ANALYTICS ANALYST Work Phone: [facility] 11-22-2021 13:03-0400 Diastolic blood pressure 70 mm[Hg] Rafael James CLINICAL RN.DATA ANALYTICS ANALYST Work Phone: [facility] 11-22-2021 13:03-0400 Heart rate 74 /min Rafael James CLINICAL RN.DATA ANALYTICS ANALYST Work Phone: [facility] 11-22-2021 13:03-0400 Respiratory rate 14 /min Rafael James CLINICAL RN.DATA ANALYTICS ANALYST Work Phone: [facility] 11-22-2021 13:03-0400 Systolic blood pressure 122 mm[Hg] Rafael James CLINICAL RN.DATA ANALYTICS ANALYST Work Phone: [facility] 08-08-2021 11:00-0400 Diastolic blood pressure 71 mm[Hg] Ángel Maditz DO Work Phone: [facility] 08-08-2021 11:00-0400 Heart rate 57 /min Ángel Maditz DO Work Phone: [facility] 08-08-2021 11:00-0400 Systolic blood pressure 131 mm[Hg] Ángel Maditz DO Work Phone: [facility] 08-08-2021 10:55-0400 Body height 177.8 cm Ángel Maditz DO Work Phone: [facility] 08-08-2021 10:55-0400 Body weight 86.18 kg Ángel Maditz DO Work Phone: [facility] 08-08-2021 10:55-0400 Respiratory rate 12 /min Ángel Maditz DO Work Phone: [facility] Encounters Encounter Date Encounter Type Care Provider Facility Start: 01-14-2024 End: 01-14-2024 Telephone encounter Gary Kelly DO Work Phone: Hematology/Oncology Comment on above: Results Start: 01-12-2024 ambulatory GARY KELLY Facility:1 [id number] Start: 01-12-2024 End: 01-12-2024 Subsequent hospital visit by physician [facility] Work Phone: Radiology CT Scan Comment on above: 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] Start: 12-31-2023 End: 12-31-2023 ambulatory Gary Kelly Work Phone: Hematology/Oncology Comment on above: Monoclonal gammopath y (Primary Dx) Start: 12-31-2023 End: 12-31-2023 Patient encounter procedure Gary Jodi Kelly DO Work Phone: Hematology/Oncology Start: 12-24-2023 End: 12-24-2023 ambulatory [facility] Facility:[facility] Start: 12-06-2023 End: 12-06-2023 Telephone encounter Elizabeth Avila APRN.MAGALY Work Phone: [facility] Comment on above: Refill Request Start: 11-23-2023 End: 11-23-2023 ambulatory Rafael Ramirez APRN.CNP Work Phone: [facility] Comment on above: amlodipine Start: 11-23-2023 End: 11-23-2023 Office outpatient visit 25 minutes Rafael Ramirez APRN.MAGALY Work Phone: [facility] Comment on above: Type 2 diabetes melvi itus with stage 3 chronic kidney disease, without long-term current use of insulin, unspecified whether stage 3a or 3b CKD (HCC) (Primary Dx); Stage 3b chronic kidney disease (HCC); Hyperlipidemia, unspecified hyperlipidemia type; Essential hypertension, benign; Gastroesophageal reflux disease without esophagitis Start: 11-16-2023 End: 11-16-2023 ambulatory RAFAEL RAMIREZ Facility:[facility] Start: 06-29-2023 End: 06-29-2023 ambulatory Ginger Khan Work Phone: Hematology/Oncology Comment on above: 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) Start: 06-29-2023 End: 06-29-2023 Patient encounter procedure Ginger Khan Work Phone: [facility] Start: 06-20-2023 End: 06-20-2023 ambulatory [facility] Facility:[facility] Start: 06-19-2023 Orders Only Gary Pedroza Work Phone: Hematology/Oncology Comment on above: 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) Start: 06-11-2023 End: 06-11-2023 ambulatory ÁNGEL JULIO Facility:[facility] Start: 06-11-2023 End: 06-11-2023 Patient encounter procedure Ángel Salehcorbin DO Work Phone: Kidney Medicine Comment on above: Stage 3b chronic kid doretha disease (HCC) (Primary Dx); Anemia of renal disease; Secondary renal hyperparathyroidism (HCC); Primary hypertension; Hyperlipidemia, unspecified hyperlipidemia type; Benign prostatic hyperplasia without lower urinary tract symptoms Start: 06-01-2023 End: 06-01-2023 ambulatory ÁNGEL NORI Facility:[facility] Start: 05-25-2023 End: 05-25-2023 ambulatory RAFAEL RAMIREZ Facility:[facility] Start: 05-25-2023 End: 05-25-2023 Office outpatient visit 25 minutes Rafael Ramirez APRN.DATA ANALYTICS ANALYST Work Phone: [facility] [place] Comment on above: Type 2 diabetes melvi itus with stage 3 chronic kidney disease, without long-term current use of insulin, unspecified whether stage 3a or 3b CKD (HCC) (Primary Dx); Stage 3b chronic kidney disease (HCC); Hyperlipidemia, unspecified hyperlipidemia type; Essential hypertension, benign; Gastroesophageal reflux disease without esophagitis Start: 05-22-2023 ambulatory Ángel Pedroza Work Phone: Kidney Medicine Comment on above: up coming visit Start: 05-17-2023 End: 05-17-2023 ambulatory RAFAEL RAMIREZ Facility:[facility] Start: 02-15-2023 End: 02-15-2023 ambulatory JANUSZ DAVENPORT Facility:[facility] Start: 01-17-2023 End: 01-17-2023 ambulatory Immunization Clinic Nurse Shi Work Phone: [facility] [place] Start: 01-11-2023 End: 01-11-2023 Subsequent hospital visit by physician [facility] Work Phone: Radiology Comment on above: 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] Start: 12-05-2022 End: 12-05-2022 ambulatory Gary Kelly DO Work Phone: Hematology/Oncology Comment on above: 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) Start: 12-05-2022 End: 12-05-2022 Patient encounter procedure Gary Zapata [address] Work Phone: [facility] Start: 11-24-2022 End: 11-24-2022 Office outpatient visit 25 minutes Rafael Ramirez APRN.DATA ANALYTICS ANALYST Work Phone: [facility] [place] Comment on above: Type 2 diabetes melvi itus without complication, without long- term current use of insulin (HCC) (Primary Dx); Stage 3b chronic kidney disease (HCC); Hyperlipidemia, unspecified hyperlipidemia type; Essential hypertension, benign; ED (erectile dysfunction) of organic origin Start: 09-19-2022 Telephone encounter Elizabeth mendenhall APRN.DATA ANALYTICS ANALYST Work Phone: [facility] Comment on above: Results (Chest Xray ) Start: 09-18-2022 End: 09-18-2022 Subsequent hospital visit by physician Mary [facility] Work Phone: Radiology Comment on above: Acute cough [R05.1] Start: 09-07-2022 End: 09-07-2022 Patient encounter procedure Elizabeth Avila APRN.DATA ANALYTICS ANALYST Work Phone: [facility] Comment on above: Seasonal allergies ( Primary Dx) Start: 09-05-2022 ambulatory Jenae garcia MD Work Phone: [facility] [place] Comment on above: schedule appt Start: 05-26-2022 End: 05-26-2022 Office outpatient visit 25 minutes Rafael Ramirez APRN.DATA ANALYTICS ANALYST Work Phone: [facility] Comment on above: Stage 3b chronic kid doretha disease (HCC) (Primary Dx); Type 2 diabetes mellitus without complication, without long-term current use of insulin (HCC); Hyperlipidemia, unspecified hyperlipidemia type; Essential hypertension, benign Start: 05-05-2022 End: 05-05-2022 Patient encounter procedure Ángel Julio DO Work Phone: Kidney Medicine Comment on above: Stage 3b chronic kid doretha disease (HCC) (Primary Dx); Anemia of renal disease; Secondary renal hyperparathyroidism (HCC); Primary hypertension; Hyperlipidemia, unspecified hyperlipidemia type; Benign prostatic hyperplasia without lower urinary tract symptoms; MGUS (monoclonal gammopathy of unknown significance) Start: 04-05-2022 ambulatory Ángel Nori Pedroza Work Phone: Kidney Medicine Comment on above: labs Start: 03-08-2022 End: 03-08-2022 ambulatory Doyle Rankin MD Work Phone: Hematology/Oncology Comment on above: 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) Start: 03-08-2022 End: 03-08-2022 Patient encounter procedure Doyle Rankin MD Work Phone: [facility] Start: 01-28-2022 End: 01-28-2022 ambulatory Immunization Clinic Nurse Shi Work Phone: [facility] Comment on above: Arrived Start: 01-11-2022 End: 01-11-2022 Patient encounter procedure Janusz Davenport MD Work Phone: Urology Comment on above: Benign prostatic hyp erplasia without lower urinary tract symptoms (Primary Dx); Screening for genitourinary condition; Congenital multiple renal cysts; ED (erectile dysfunction) of organic origin; Stage 3b chronic kidney disease (HCC) Start: 11-22-2021 End: 11-22-2021 Office outpatient visit 25 minutes Rafael Ramirez APRN.DATA ANALYTICS ANALYST Work Phone: [facility] Comment on above: Type 2 diabetes melvi itus without complication, without long- term current use of insulin (HCC) (Primary Dx); Hyperlipidemia, unspecified hyperlipidemia type; Stage 3b chronic kidney disease (HCC); Essential hypertension, benign; Acute pulmonary embolism, unspecified pulmonary embolism type, unspecified whether acute cor pulmonale present (HCC); Dermatitis; Bilateral leg edema Start: 09-12-2021 ambulatory Rafael MCDONALD RN.DATA ANALYTICS ANALYST Work Phone: [facility] [place] Comment on above: stool sample Start: 09-09-2021 Telephone encounter Troy Stein MD Work Phone: [facility] [place] Comment on above: Results; Orders Start: 09-07-2021 Telephone encounter Jenae henderson MD Work Phone: [facility] [place] Comment on above: Patient Question; Or ders Start: 08-10-2021 Telephone encounter Ángel martinez DO Work Phone: Kidney Medicine Comment on above: Results Start: 08-10-2021 End: 08-10-2021 Patient encounter procedure Janusz Davenport MD Work Phone: Urology Comment on above: Benign prostatic hyp erplasia without lower urinary tract symptoms (Primary Dx); Screening for genitourinary condition; Congenital multiple renal cysts; Erectile dysfunction, unspecified erectile dysfunction type Start: 08-08-2021 End: 08-08-2021 Patient encounter procedure Ángel Julio DO Work Phone: Kidney Medicine Comment on above: Stage 3b chronic kid doretha disease (HCC) (Primary Dx); Renal cyst; Anemia of renal disease; Secondary renal hyperparathyroidism (HCC); Essential hypertension; Hyperlipidemia, unspecified hyperlipidemia type Start: 06-26-2018 End: 06-26-2018 Patient encounter procedure JUAN MANUEL ALVARADO [facility] Start: 06-17-2018 Patient encounter procedure JUAN MANUEL ALVARADO Facility:[facility] Procedures Date Procedure Procedure Detail Performing Clinician Start: 01-17-2023 INFLUENZA VACCINE, PRSV FREE, AGE 65+ YR, HIGH DOSE, QUADRIVALENT (FLUZONE HIGH-DOSE) Mihai Carter MD Work Phone: Start: 01-11-2023 Us retroperitoneal real time w/image complete Janusz Davenport MD Work Phone: Start: 09-18-2022 Radiologic exam chest 2 views Elizabeth Avila APRN.DATA ANALYTICS ANALYST Work Phone: Start: 01-28-2022 INFLUENZA SEASONAL QUADRIVALENT HIGH DOSE AGE 65+ Igor Beasley MD Work Phone: Start: 01-11-2022 Urnls dip stick/tablet rgnt auto w/o microscopy Janusz Davenport MD Work Phone: Start: 08-10-2021 Urnls dip stick/tablet rgnt auto w/o microscopy Janusz Davenport MD Work Phone: Plan of Treatment Date Care Activity Detail Author Start: 03-08-2027 Urine microalbumin profile [facility] Start: 12-22-2024 End: 12-22-2024 ambulatory 12/22/2024 2:30 PM EDT Visit (SP) Office Hematology/Oncology [address] [place], [place] [id number] Gary Kelly DO [address] [place], [place] [id number] 1 YR OV/LABS 12/15* Hematology/Oncology Comment on above: 1 YR OV/LABS 12/15* Start: 12-15-2024 End: 12-15-2024 ambulatory 12/15/2024 10:00 AM EDT Results Only [facility] [address] [place] [address] CBC/CMP/Myeloma labs (no urine)* [facility] Comment on above: CBC/CMP/Myeloma labs (no urine)* Start: 11-15-2024 Hepatitis B surface antibody level LDL Cholesterol [facility] Start: 06-16-2024 End: 06-16-2024 Patient encounter procedure 06/16/2024 10:40 AM EDT Office Visit [facility] [address] [place], [place] [id number] Ángel Julio DO [address] [place] [address] Return in about 1 year (around 06/10/2024). Kidney Medicine Comment on above: Return in about 1 ye ar (around 06/10/2024). Start: 05-30-2024 End: 05-30-2024 Patient encounter procedure 05/30/2024 1:00 PM EST Office Visit Family Medicine [facility] [address] [place] [address] Rafael Ramirez APRN.DATA ANALYTICS ANALYST [address] [place] [address] 6 month follow up [facility] Comment on above: 6 month follow up Start: 05-25-2024 End: 08-24-2024 CBC W Auto Differential panel - Blood COMPLETE BLOOD COUNT AND DIFFERENTIAL Lab Routine Type 2 diabetes 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, without long-term current use of insulin, unspecified whether stage 3a or 3b CKD (HCC) Stage 3b chronic kidney disease (HCC) Essential hypertension, benign Expected: 05/25/2024 (Approximate), Expires: 08/24/2024 [facility] Comment on above: Expected: 05/25/2024 (Approximate), Expires: 08/24/2024 Start: 05-25-2024 End: 08-24-2024 Comprehensive metabolic 2000 panel - Serum or Plasma COMPREHENSIVE METABOLIC PANEL Lab Routine Type 2 diabetes 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, without long-term current use of insulin, unspecified whether stage 3a or 3b CKD (HCC) Stage 3b chronic kidney disease (HCC) Essential hypertension, benign Expected: 05/25/2024 (Approximate), Expires: 08/24/2024 [facility] Comment on above: Expected: 05/25/2024 (Approximate), Expires: 08/24/2024 Start: 05-25-2024 Covid-19 Vaccine () Covid-19 Vaccine () [facility] Comment on above: Postponed from 12/08 (Declined at this time) Start: 05-25-2024 End: 08-24-2024 Hemoglobin A1c in Blood HEMOGLOBIN A1C Lab Routine Type 2 diabetes 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, without long-term current use of insulin, unspecified whether stage 3a or 3b CKD (HCC) Expected: 05/25/2024 (Approximate), Expires: 08/24/2024 [facility] Work Phone: Comment on above: Expected: 05/25/2024 (Approximate), Expires: 08/24/2024 Start: 05-25-2024 End: 08-24-2024 Lipid 1996 panel - Serum or Plasma LIPID PANEL BASIC Lab Routine Type 2 diabetes 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, without long-term current use of insulin, unspecified whether stage 3a or 3b CKD (HCC) Hyperlipidemia, unspecified hyperlipidemia type Expected: 05/25/2024 (Approximate), Expires: 08/24/2024 [facility] Comment on above: Expected: 05/25/2024 (Approximate), Expires: 08/24/2024 Start: 05-25-2024 End: 08-24-2024 Microalbumin/Creatinine [Mass Ratio] in Urine ALBUMIN/CREATININE RATIO, URINE Lab Routine Type 2 diabetes 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, without long-term current use of insulin, unspecified whether stage 3a or 3b CKD (HCC) Expected: 05/25/2024 (Approximate), Expires: 08/24/2024 [facility] Comment on above: Expected: 05/25/2024 (Approximate), Expires: 08/24/2024 Start: 05-25-2024 RSV Vaccine (1 - 1-d ose 60+ series) RSV Vaccine (1 - 1-dose 60+ series) [facility] Comment on above: Postponed from 12/12 (Insurance Coverage) Start: 05-25-2024 RSV Vaccine (1 - 1-d ose 75+ series) RSV Vaccine (1 - 1-dose 75+ series) [facility] Comment on above: Postponed from 12/12 (Insurance Coverage) Start: 05-18-2024 Hemoglobin A1c measurement HbA1C [facility] Start: 05-17-2024 Hepatitis B screening Urine Al bumin:Creatinine Ratio [facility] Start: 05-17-2024 Hepatitis B surface antibody level LDL Cholesterol [facility] Start: 02-19-2024 End: 02-19-2024 Patient encounter procedure 02/19/2024 2:00 PM EST Office Visit Urology [address] [place] [address] Janusz Davenport MD [address] [place] [address] follow up 1 year Urology Comment on above: follow up 1 year Start: 01-12-2024 End: 01-12-2024 Patient encounter procedure 01/12/2024 3:30 PM EDT Appointment Radiology CT Scan [address] [place] [address] Monoclonal gammopathy [D47.2] Radiology CT Scan Comment on above: 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] Start: 12-31-2023 End: 12-31-2023 ambulatory 12/31/2023 2:30 PM EDT Visit (SP) Office Hematology/Oncology [address] [place] [id number] Gary Kelly DO [address] [place] [address] 6MO OV/LABS EARLY* Hematology/Oncology Comment on above: 6MO OV/LABS EARLY* Start: 12-24-2023 End: 12-24-2023 ambulatory 12/24/2023 11:00 AM EDT Results Only [facility] [address] [place] [address] CBC/MM LABS* [facility] Comment on above: CBC/MM LABS* Start: 12-09-2023 Covid-19 Vaccine ( season) Covid-19 Vaccine ( season) [facility] Start: 12-09-2023 Covid-19 Vaccine ( season) Covid-19 Vaccine ( season) [facility] Start: 12-09-2023 Influenza vaccination Influenza Vacc ine (#1) [facility] Start: 11-23-2023 End: 02-22-2024 Comprehensive metabolic 2000 panel - Serum or Plasma COMP METABOLIC PANEL Lab Routine Stage 3b chronic kidney disease (HCC) Essential hypertension, benign Type 2 diabetes 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, without long-term current use of insulin, unspecified whether stage 3a or 3b CKD (HCC) Expected: 11/23/2023 (Approximate), Expires: 02/22/2024 [facility] Work Phone: Comment on above: Expected: 11/23/2023 (Approximate), Expires: 02/22/2024 Start: 11-23-2023 End: 02-22-2024 Hemoglobin A1c in Blood HGB A1C Lab Routine Type 2 diabetes 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, without long-term current use of insulin, unspecified whether stage 3a or 3b CKD (HCC) Expected: 11/23/2023 (Approximate), Expires: 02/22/2024 [facility] Work Phone: Comment on above: Expected: 11/23/2023 (Approximate), Expires: 02/22/2024 Start: 11-23-2023 End: 02-22-2024 Lipid 1996 panel - Serum or Plasma LIPID PANEL BASIC Lab Routine Hyperlipidemia, unspecified hyperlipidemia type Type 2 diabetes 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, without long-term current use of insulin, unspecified whether stage 3a or 3b CKD (HCC) Expected: 11/23/2023 (Approximate), Expires: 02/22/2024 [facility] Work Phone: Comment on above: Expected: 11/23/2023 (Approximate), Expires: 02/22/2024 Start: 11-15-2023 Hemoglobin A1c measurement HbA1C [facility] Start: 06-20-2023 End: 09-19-2023 [id number] [Mass/volume] in Serum or Plasma B2 MICROGLOBULIN B Lab Routine MGUS (monoclonal gammopathy of unknown significance) Expected: 06/20/2023, Expires: 09/19/2023 [facility] Work Phone: Comment on above: Expected: 06/20/2023 , Expires: 09/19/2023 Start: 06-20-2023 End: 09-19-2023 CBC W Auto Differential panel - Blood CBC + DIFF Lab STAT MGUS (monoclonal gammopathy of unknown significance) Expected: 06/20/2023, Expires: 09/19/2023 [facility] Work Phone: Comment on above: Expected: 06/20/2023 , Expires: 09/19/2023 Start: 06-20-2023 End: 09-19-2023 Comprehensive metabolic 2000 panel - Serum or Plasma COMP METABOLIC PANEL Lab STAT MGUS (monoclonal gammopathy of unknown significance) Expected: 06/20/2023, Expires: 09/19/2023 [facility] Work Phone: Comment on above: Expected: 06/20/2023 , Expires: 09/19/2023 Start: 06-20-2023 End: 09-19-2023 IMMUNOGLOBULINS ARIANE IMMUNOGLOBULINS ARIANE Lab Routine MGUS (monoclonal gammopathy of unknown significance) Expected: 06/20/2023, Expires: 09/19/2023 [facility] Work Phone: Comment on above: Expected: 06/20/2023 , Expires: 09/19/2023 Start: 06-20-2023 End: 09-19-2023 KAPPA/CHRISTIE,FREE,SER KAPPA/CHRISTIE,FREE,SER Lab Routine MGUS (monoclonal gammopathy of unknown significance) Expected: 06/20/2023, Expires: 09/19/2023 [facility] Work Phone: Comment on above: Expected: 06/20/2023 , Expires: 09/19/2023 Start: 06-20-2023 End: 09-19-2023 Lactate dehydrogenase [Enzymatic activity/volume] in Serum or Plasma LD LACTATE DEHYDRO Lab Routine MGUS (monoclonal gammopathy of unknown significance) Expected: 06/20/2023, Expires: 09/19/2023 [facility] Work Phone: Comment on above: Expected: 06/20/2023 , Expires: 09/19/2023 Start: 06-20-2023 End: 09-19-2023 MONOCLONAL PROTEIN, SERUM (BLOOD) MONOCLONAL PROTEIN, SERUM (BLOOD) Lab Routine MGUS (monoclonal gammopathy of unknown significance) Expected: 06/20/2023, Expires: 09/19/2023 [facility] Work Phone: Comment on above: Expected: 06/20/2023 , Expires: 09/19/2023 Start: 06-20-2023 End: 09-19-2023 PROTEIN ELECTROPHORESIS SERUM W/INTERP PROTEIN ELECTROPHORESIS SERUM W/INTERP Lab Routine MGUS (monoclonal gammopathy of unknown significance) Expected: 06/20/2023, Expires: 09/19/2023 [facility] Work Phone: Comment on above: Expected: 06/20/2023 , Expires: 09/19/2023 Start: 06-10-2023 Glaucoma screening Dilated Retinal E xam [facility] Start: 06-10-2023 Hepatitis C antibody , confirmatory test DILATED RETINAL EXAM [facility] Start: 05-27-2023 End: 07-27-2023 ALBUMIN/CREAT RATIO RND UR ALBUMIN/CREAT RATIO RND UR Lab Routine Type 2 diabetes mellitus without complication, without long-term current use of insulin (HCC) Expected: 05/27/2023 (Approximate), Expires: 07/27/2023 [facility] Work Phone: Comment on above: Expected: 05/27/2023 (Approximate), Expires: 07/27/2023 Start: 05-27-2023 End: 07-27-2023 Comprehensive metabolic 2000 panel - Serum or Plasma COMP METABOLIC PANEL Lab Routine Stage 3b chronic kidney disease (HCC) Type 2 diabetes mellitus without complication, without long-term current use of insulin (HCC) Expected: 05/27/2023 (Approximate), Expires: 07/27/2023 [facility] Work Phone: Comment on above: Expected: 05/27/2023 (Approximate), Expires: 07/27/2023 Start: 05-27-2023 End: 07-27-2023 Hemoglobin A1c in Blood HGB A1C Lab Routine Type 2 diabetes mellitus without complication, without long-term current use of insulin (HCC) Expected: 05/27/2023 (Approximate), Expires: 07/27/2023 [facility] Work Phone: Comment on above: Expected: 05/27/2023 (Approximate), Expires: 07/27/2023 Start: 05-27-2023 End: 07-27-2023 Lipid 1996 panel - Serum or Plasma LIPID PANEL BASIC Lab Routine Hyperlipidemia, unspecified hyperlipidemia type Expected: 05/27/2023 (Approximate), Expires: 07/27/2023 [facility] Work Phone: Comment on above: Expected: 05/27/2023 (Approximate), Expires: 07/27/2023 Start: 05-23-2023 End: 08-22-2023 CBC panel - Blood by Automated count CBC Lab Routine Stage 3 chronic kidney disease, unspecified whether stage 3a or 3b CKD (HCC) Expected: 05/23/2023, Expires: 08/22/2023 [facility] Work Phone: Comment on above: Expected: 05/23/2023 , Expires: 08/22/2023 Start: 05-23-2023 End: 08-22-2023 Protein/Creatinine [Mass Ratio] in Urine PROTEIN CREATININE RATIO Lab Routine Stage 3 chronic kidney disease, unspecified whether stage 3a or 3b CKD (HCC) Expected: 05/23/2023, Expires: 08/22/2023 [facility] Work Phone: Comment on above: Expected: 05/23/2023 , Expires: 08/22/2023 Start: 05-23-2023 End: 08-22-2023 Urinalysis complete panel - Urine URINALYSIS, WITH MICROSCOPIC Lab Routine Stage 3 chronic kidney disease, unspecified whether stage 3a or 3b CKD (HCC) Expected: 05/23/2023, Expires: 08/22/2023 [facility] Work Phone: Comment on above: Expected: 05/23/2023 , Expires: 08/22/2023 Start: 05-20-2023 Hepatitis B surface antibody level LDL CHOLESTEROL [facility] Start: 05-04-2023 Hemoglobin A1c/Hemoglobin.total in Blood HBA1C [facility] Start: 04-09-2023 Advance Directive Discussion Advance Directive Discussion [facility] Start: 04-09-2023 Depression Assessment Depression Ass essment [facility] Start: 01-11-2023 End: 02-11-2023 US KIDNEY/BLADDER US KIDNEY/BLADDER Radiology Routine Congenital multiple renal cysts Expected: 01/11/2023, Expires: 02/11/2023 [facility] Work Phone: Comment on above: Expected: 01/11/2023 , Expires: 02/11/2023 Start: 12-08-2022 Covid-19 Vaccine () Covid-19 Vaccine () [facility] Start: 12-08-2022 Influenza vaccination INFLUENZA (#1) [facility] Start: 12-06-2022 End: 02-05-2023 CBC W Auto Differential panel - Blood CBC + DIFF Lab Routine MGUS (monoclonal gammopathy of unknown significance) Expected: 12/06/2022, Expires: 02/05/2023 [facility] Work Phone: Comment on above: Expected: 12/06/2022 , Expires: 02/05/2023 Start: 12-06-2022 End: 02-05-2023 Comprehensive metabolic 2000 panel - Serum or Plasma COMP METABOLIC PANEL Lab Routine MGUS (monoclonal gammopathy of unknown significance) Expected: 12/06/2022, Expires: 02/05/2023 [facility] Work Phone: Comment on above: Expected: 12/06/2022 , Expires: 02/05/2023 Start: 12-06-2022 End: 02-05-2023 MONOCLONAL PROTEIN, SERUM (BLOOD) MONOCLONAL PROTEIN, SERUM (BLOOD) Lab Routine MGUS (monoclonal gammopathy of unknown significance) Expected: 12/06/2022, Expires: 02/05/2023 [facility] Work Phone: Comment on above: Expected: 12/06/2022 , Expires: 02/05/2023 Start: 12-06-2022 End: 02-05-2023 PROTEIN ELECTROPHORESIS SERUM W/INTERP PROTEIN ELECTROPHORESIS SERUM W/INTERP Lab Routine MGUS (monoclonal gammopathy of unknown significance) Expected: 12/06/2022, Expires: 02/05/2023 [facility] Work Phone: Comment on above: Expected: 12/06/2022 , Expires: 02/05/2023 Start: 11-23-2022 End: 01-23-2023 Comprehensive metabolic 2000 panel - Serum or Plasma COMP METABOLIC PANEL Lab Routine Type 2 diabetes mellitus without complication, without long-term current use of insulin (HCC) Essential hypertension, benign Expected: 11/23/2022 (Approximate), Expires: 01/23/2023 [facility] Work Phone: Comment on above: Expected: 11/23/2022 (Approximate), Expires: 01/23/2023 Start: 11-23-2022 End: 01-23-2023 Hemoglobin A1c in Blood HGB A1C Lab Routine Type 2 diabetes mellitus without complication, without long-term current use of insulin (HCC) Expected: 11/23/2022 (Approximate), Expires: 01/23/2023 [facility] Work Phone: Comment on above: Expected: 11/23/2022 (Approximate), Expires: 01/23/2023 Start: 11-17-2022 Hemoglobin A1c/Hemoglobin.total in Blood HBA1C [facility] Start: 06-23-2022 Hepatitis B surface antibody level LDL CHOLESTEROL [facility] Start: 06-20-2022 FECAL OCCULT BLOOD FECAL OCCULT BLOO D [facility] Start: 05-25-2022 End: 07-25-2022 Comprehensive metabolic 2000 panel - Serum or Plasma COMP METABOLIC PANEL Lab Routine Stage 3b chronic kidney disease (HCC) Essential hypertension, benign Expected: 05/25/2022 (Approximate), Expires: 07/25/2022 [facility] Work Phone: Comment on above: Expected: 05/25/2022 (Approximate), Expires: 07/25/2022 Start: 05-25-2022 End: 07-25-2022 Hemoglobin A1c in Blood HGB A1C Lab Routine Type 2 diabetes mellitus without complication, without long-term current use of insulin (HCC) Expected: 05/25/2022 (Approximate), Expires: 07/25/2022 [facility] Work Phone: Comment on above: Expected: 05/25/2022 (Approximate), Expires: 07/25/2022 Start: 05-25-2022 End: 07-25-2022 Lipid 1996 panel - Serum or Plasma LIPID PANEL BASIC Lab Routine Hyperlipidemia, unspecified hyperlipidemia type Expected: 05/25/2022 (Approximate), Expires: 07/25/2022 [facility] Work Phone: Comment on above: Expected: 05/25/2022 (Approximate), Expires: 07/25/2022 Start: 05-21-2022 Hepatitis B screening URINE AL BUMIN:CREATININE RATIO [facility] Start: 05-20-2022 Hemoglobin A1c/Hemoglobin.total in Blood HBA1C [facility] Start: 04-24-2022 End: 06-24-2022 Renal function 2000 panel - Serum or Plasma RENAL FUNCTION PANEL Lab Routine Stage 3b chronic kidney disease (HCC) Expected: 04/24/2022, Expires: 06/24/2022 [facility] Work Phone: Comment on above: Expected: 04/24/2022 , Expires: 06/24/2022 Start: 04-09-2022 ADVANCE DIRECTIVE DISCUSSION ADVANCE DIRECTIVE DISCUSSION [facility] Start: 04-09-2022 DEPRESSION ASSESSMENT DEPRESSION ASS ESSMENT [facility] Start: 01-20-2022 Hepatitis C antibody , confirmatory test DILATED RETINAL EXAM [facility] Start: 01-09-2022 End: 09-10-2022 US KIDNEY/BLADDER US KIDNEY/BLADDER Radiology Routine Congenital multiple renal cysts Expected: 01/09/2022, Expires: 09/10/2022 [facility] Work Phone: Comment on above: Expected: 01/09/2022 , Expires: 09/10/2022 Start: 12-24-2021 Hemoglobin A1c/Hemoglobin.total in Blood HBA1C [facility] Start: 12-08-2021 Influenza vaccination INFLUENZA (#1) [facility] Start: 08-08-2021 End: 10-08-2021 MONOCLONAL PROTEIN, SERUM (BLOOD) [facility] Work Phone: Comment on above: Expected: 08/08/2021 , Expires: 10/08/2021 Start: 08-08-2021 End: 08-08-2022 PTH INTACT BLD [facility] Work Phone: Comment on above: Expected: 08/08/2021 , Expires: 08/08/2022 Start: 08-08-2021 End: 08-08-2022 VITAMIN D 25 HYDROXY [facility] Work Phone: Comment on above: Expected: 08/08/2021 , Expires: 08/08/2022 Start: 06-22-2021 COVID-19 VACCINE (4 - Booster for Moderna series) COVID-19 VACCINE (4 - Booster for Moderna series) [facility] Start: 04-19-2021 COVID-19 VACCINE (4 - Booster for Moderna series) COVID-19 VACCINE (4 - Booster for Moderna series) [facility] Start: 04-19-2021 COVID-19 VACCINE (4 - Moderna series) COVID-19 VACCINE (4 - Moderna series) [facility] Start: 04-09-2021 ADVANCE DIRECTIVE DISCUSSION ADVANCE DIRECTIVE DISCUSSION [facility] Start: 04-09-2021 DEPRESSION ASSESSMENT DEPRESSION ASS ESSMENT [facility] Start: 06-06-2020 3 comp foot exam completed DIABETIC FOOT EXAM [facility] Start: 06-06-2020 Diabetic foot examination Diabetic F oot Exam [facility] Start: 04-07-2013 SHINGRIX VACCINE (2 of 3) BARNARD GRIX VACCINE (2 of 3) [facility] Start: 1999 Hepatitis B Vaccine (1 of 3 - Risk 3-dose series) Hepatitis B Vaccine (1 of 3 - Risk 3-dose series) [facility] Start: 1999 RSV Vaccine (1 - 1-d ose 60+ series) RSV Vaccine (1 - 1-dose 60+ series) [facility] Start: 12-12-1957 Anxiety Screening Anxiety Screening [facility] Start: [birth year]-12-1958 Depression Screening Depression Scre ening [facility] End: 08-08-2022 CBC panel - Blood by Automated count CBC Lab Routine Stage 3b chronic kidney disease (HCC) Every 6 months for 3 Occurrences starting 08/08/2021 until 08/08/2022, 1 completed [facility] Work Phone: Comment on above: Every 6 months for 3 Occurrences starting 08/08/2021 until 08/08/2022, 1 completed End: 05-05-2023 CBC panel - Blood by Automated count CBC Lab Routine Stage 3b chronic kidney disease (HCC) Every 6 months for 3 Occurrences starting 05/05/2022 until 05/05/2023 [facility] Work Phone: Comment on above: Every 6 months for 3 Occurrences starting 05/05/2022 until 05/05/2023 End: 01-29-[address] WHOLE BODY SKULL TO KNEE WO IVCON Radiology Routine Monoclonal gammopathy 1 Occurrences starting 12/31/2023 until 01/29/2025 [facility] Work Phone: Comment on above: 1 Occurrences starti ng 12/31/2023 until 01/29/2025 End: 01-12-2024 CT Whole body [facility] Work Phone: Comment on above: 1 Occurrences starti ng 01/12/2024 until 01/12/2024 Gastrointestinal pathogens panel - Stool by Culture STOOL CULTURE/EIA Microbiology Routine Diarrhea, unspecified type Ordered: 09/07/2021 [facility] Work Phone: Comment on above: Ordered: 09/07/2021 Giardia lamblia+Cryptosporidium sp Ag [Presence] in Stool by Immunoassay CRYPTOSPORIDIUM AND GIARDIA ANTIGENS BY EIA Microbiology Routine Diarrhea, unspecified type Ordered: 09/07/2021 [facility] Work Phone: Comment on above: Ordered: 09/07/2021 Giardia lamblia+Cryptosporidium sp Ag [Presence] in Stool by Immunoassay CRYPTOSPORIDIUM AND GIARDIA ANTIGENS BY EIA Microbiology Routine Diarrhea, unspecified type Ordered: 09/09/2021 [facility] Work Phone: Comment on above: Ordered: 09/09/2021 MONOCLONAL PROT 24 U R W/INTERP MONOCLONAL PROT 24 UR W/INTERP Lab Routine MGUS (monoclonal gammopathy of unknown significance) Ordered: 12/05/2022 [facility] Work Phone: Comment on above: Ordered: 12/05/2022 MONOCLONAL PROT 24 U R W/INTERP MONOCLONAL PROT 24 UR W/INTERP Lab Routine MGUS (monoclonal gammopathy of unknown significance) Ordered: 06/19/2023 [facility] Work Phone: Comment on above: Ordered: 06/19/2023 PROT ELEC UR 24HR W/ M SPIKE (P) PROT ELEC UR 24HR W/M SPIKE (P) Lab Routine MGUS (monoclonal gammopathy of unknown significance) Ordered: 12/05/2022 [facility] Work Phone: Comment on above: Ordered: 12/05/2022 PROT ELEC UR 24HR W/ M SPIKE (P) PROT ELEC UR 24HR W/M SPIKE (P) Lab Routine MGUS (monoclonal gammopathy of unknown significance) Ordered: 06/19/2023 [facility] Work Phone: Comment on above: Ordered: 06/19/2023 PROT ELEC UR 24HR W/ M SPIKE AND INTERP PROT ELEC UR 24HR W/M SPIKE AND INTERP Lab Routine MGUS (monoclonal gammopathy of unknown significance) Ordered: 12/05/2022 [facility] Work Phone: Comment on above: Ordered: 12/05/2022 PROT ELEC UR 24HR W/ M SPIKE AND INTERP PROT ELEC UR 24HR W/M SPIKE AND INTERP Lab Routine MGUS (monoclonal gammopathy of unknown significance) Ordered: 06/19/2023 [facility] Work Phone: Comment on above: Ordered: 06/19/2023 Protein [Mass/time] in 24 hour Urine PROTEIN 24 HR URINE Lab Routine MGUS (monoclonal gammopathy of unknown significance) Ordered: 12/05/2022 [facility] Work Phone: Comment on above: Ordered: 12/05/2022 Protein [Mass/time] in 24 hour Urine PROTEIN 24 HR URINE Lab Routine MGUS (monoclonal gammopathy of unknown significance) Ordered: 06/19/2023 [facility] Work Phone: Comment on above: Ordered: 06/19/2023 End: 08-08-2022 Protein/Creatinine [Mass Ratio] in Urine PROTEIN CREATININE RATIO Lab Routine Stage 3b chronic kidney disease (HCC) Every 6 months for 3 Occurrences starting 08/08/2021 until 08/08/2022 [facility] Work Phone: Comment on above: Every 6 months for 3 Occurrences starting 08/08/2021 until 08/08/2022 Protein/Creatinine [ Mass Ratio] in Urine PROTEIN CREATININE RATIO Lab Routine Stage 3b chronic kidney disease (HCC) 08/08/2021 12:41 PM EDT [facility] Work Phone: End: 05-05-2023 Protein/Creatinine [Mass Ratio] in Urine PROTEIN CREATININE RATIO Lab Routine Stage 3b chronic kidney disease (HCC) Every 6 months for 3 Occurrences starting 05/05/2022 until 05/05/2023 [facility] Work Phone: Comment on above: Every 6 months for 3 Occurrences starting 05/05/2022 until 05/05/2023 End: 08-08-2022 Renal function 2000 panel - Serum or Plasma RENAL FUNCTION PANEL Lab Routine Stage 3b chronic kidney disease (HCC) Every 6 months for 3 Occurrences starting 08/08/2021 until 08/08/2022 [facility] Work Phone: Comment on above: Every 6 months for 3 Occurrences starting 08/08/2021 until 08/08/2022 Renal function 2000 panel - Serum or Plasma RENAL FUNCTION PANEL Lab Routine Stage 3b chronic kidney disease (HCC) 08/08/2021 12:25 PM EDT [facility] Work Phone: End: 05-05-2023 Renal function 2000 panel - Serum or Plasma RENAL FUNCTION PANEL Lab Routine Stage 3b chronic kidney disease (HCC) Every 6 months for 3 Occurrences starting 05/05/2022 until 05/05/2023 [facility] Work Phone: Comment on above: Every 6 months for 3 Occurrences starting 05/05/2022 until 05/05/2023 End: 08-08-2022 Urinalysis complete panel - Urine URINALYSIS, WITH MICROSCOPIC Lab Routine Stage 3b chronic kidney disease (HCC) Every 6 months for 3 Occurrences starting 08/08/2021 until 08/08/2022 [facility] Work Phone: Comment on above: Every 6 months for 3 Occurrences starting 08/08/2021 until 08/08/2022 Urinalysis complete panel - Urine URINALYSIS, WITH MICROSCOPIC Lab Routine Stage 3b chronic kidney disease (HCC) 08/08/2021 12:41 PM EDT [facility] Work Phone: End: 05-05-2023 Urinalysis complete panel - Urine URINALYSIS, WITH MICROSCOPIC Lab Routine Stage 3b chronic kidney disease (HCC) Every 6 months for 3 Occurrences starting 05/05/2022 until 05/05/2023 [facility] Work Phone: Comment on above: Every 6 months for 3 Occurrences starting 05/05/2022 until 05/05/2023 [facility] Immunizations Immunization Date Immunization Notes Care Provider Fa [facility] 01-17-2023 influenza (HD-IIV4) vaccine, age 65+ yr, high dose, quadrivalent, PF (FLUZONE HIGH-DOSE) Immunization Shi Work Phone: [facility] Work Phone: 01-17-2023 influenza virus vaccine, unspecified formulation Rafael Ramirez APRN.DATA ANALYTICS ANALYST Work Phone: [facility] 01-28-2022 influenza, high-dose , quadrivalent vaccine (FLUZONE HIGH DOSE QUADRIVALENT) Immunization [place] Work Phone: [facility] 01-15-2021 influenza, high-dose , quadrivalent vaccine (FLUZONE HIGH DOSE QUADRIVALENT) Ángel Nori DO Work Phone: [facility] 07-05-2020 COVID-19 vaccine, fu ll dose (MODERNA) Ángel Maditz DO Work Phone: [facility] 06-07-2020 COVID-19 vaccine, fu ll dose (MODERNA) Ángel Maditz DO Work Phone: [facility] 01-09-2020 influenza, high-dose , quadrivalent vaccine (FLUZONE HIGH DOSE QUADRIVALENT) Ángel Delfinoitz DO Work Phone: [facility] Work Phone: 02-01-2019 influenza, high dose seasonal, preservative-free Ángel Nori DO Work Phone: [facility] 03-18-2018 influenza, seasonal, injectable Ángel Julio DO Work Phone: [facility] Work Phone: 02-01-2018 influenza, high dose seasonal, preservative-free Ángel Julio DO Work Phone: [facility] Work Phone: 03-08-2017 tetanus toxoid, redu jeannie diphtheria toxoid, and acellular pertussis vaccine, adsorbed Ángel Julio DO Work Phone: [facility] 01-12-2017 influenza, high dose seasonal, preservative-free Ángel Julio DO Work Phone: [facility] 01-29-2016 influenza, high dose seasonal, preservative-free Ángel Julio DO Work Phone: [facility] Work Phone: 05-10-2015 pneumococcal polysaccharide vaccine, 23 valent Ángel Julio DO Work Phone: [facility] 02-17-2015 influenza, high dose seasonal, preservative-free Ángel Julio DO Work Phone: [facility] Work Phone: 06-20-2014 diphtheria, tetanus toxoids and pertussis vaccine Ángel Julio DO Work Phone: [facility] Work Phone: 06-20-2014 tetanus toxoid, redu jeannie diphtheria toxoid, and acellular pertussis vaccine, adsorbed Ángel Julio DO Work Phone: [facility] Work Phone: 05-11-2014 pneumococcal conjuga te vaccine, 13 valent Ángel Julio DO Work Phone: [facility] 02-04-2014 influenza, seasonal, injectable Ángel Julio DO Work Phone: [facility] Work Phone: 02-10-2013 zoster vaccine, live Ángel huang DO Work Phone: [facility] 01-18-2013 influenza virus vaccine, unspecified formulation Ángel Julio DO Work Phone: [facility] 02-22-2012 influenza virus vaccine, unspecified formulation Ángel Julio DO Work Phone: [facility] 01-18-2011 influenza virus vaccine, unspecified formulation Ángel Julio DO Work Phone: [facility] 03-01-2010 influenza virus vaccine, unspecified formulation Ángel Julio DO Work Phone: [facility] Work Phone: 12-29-2008 influenza virus vaccine, unspecified formulation Ángel Julio DO Work Phone: [facility] 02-13-2008 influenza virus vaccine, unspecified formulation Ángel Julio DO Work Phone: [facility] Work Phone: 02-12-2007 influenza virus vaccine, unspecified formulation Ángel Julio DO Work Phone: [facility] 02-14-2006 influenza virus vaccine, unspecified formulation Ángel Julio DO Work Phone: [facility] 07-17-2005 tetanus and diphther ia toxoids, adsorbed, preservative free, for adult use (2 Lf of tetanus toxoid and 2 Lf of diphtheria toxoid) Ángel Julio DO Work Phone: [facility] 03-25-2001 pneumococcal polysaccharide vaccine, 23 valent Ángel Julio DO Work Phone: [facility] Work Phone: Payers Date Payer Category Payer Private Health Insurance [employer] A ETNA MEDICARE SUPPLEMENT [id number] 2020-Present [phone] [address] [address] [place] [address] Indemnity [id number] 2020 Private Health Insurance [id number] 2020 Medicare [id number] 2004 Medicare MEDICARE MEDICAR E A AND B [id number] 2004-Present [phone] [place] [address] Medicare [id number] 2004 Medicare MEDICARE MEDICAR E A AND B [id number] 2004-Present [phone] [place] [address] Medicare [id number] 2004 Medicare [id number] 1940 Unknown [id number] 1940 Unknown [id number] Medicare [id number] Social History Date Type Detail Facility Start: 07-02-2014 End: 11-22-2021 Tobacco smoking status NHIS Ex-smoker [facility] Work Phone: Start: 04-09-1969 End: 04-09-1978 History of tobacco use Current smoker [facility] Work Phone: Start: 07-02-2014 End: 09-07-2022 Cigarettes smoked current (pack per day) - Reported 0.5 [facility] Start: 07-02-2014 End: 11-22-2021 Tobacco use and exposure Smokeless tobacco non-user [facility] Work Phone: Start: 08-08-2021 End: 12-31-2023 Alcohol intake Current non-drinker of alcohol (finding) [facility] Start: 05-30-2020 History SDOH Alcohol Frequency 2 [facility] Start: 05-30-2020 History SDOH Alcohol Std Drinks 98 [facility] Start: 05-30-2020 History SDOH Alcohol Binge 1 [facility] Start: 02-21-2021 History SDOH Social Connections Phone 3 [facility] Start: 05-30-2020 History SDOH Physical Activity DPW 7 [facility] Start: 05-30-2020 History SDOH Physical Activity MPS 12 [facility] Start: 05-30-2020 History SDOH Financial 5 [facility] Start: 05-30-2020 Education 15 [facility] Start: 07-02-2014 End: 11-22-2021 Tobacco Comment quit 50 years ago [facility] Start: 1940 Sex Assigned At Male [facility] Start: 07-29-2021 End: 03-08-2022 Exposure to SARS-CoV-2 (event) Not sure [facility] Start: [birth year]-09-1969 End: 04-09-1978 History of tobacco use Cigarette Smoker [facility] Start: 05-30-2020 End: 09-07-2022 Social connection and isolation panel [facility] Do you belong to any clubs or organizations such as bahai groups, [employer], [employer] or athletic groups, or school groups? Yes [facility] Are you now , , , , never or living with a partner? [facility] How often to you hav e a drink containing alcohol? Monthly or less [facility] How many standard dr inks containing alcohol do you have on a typical day? Patient refused [facility] How often do you hav e 6 or more drinks on 1 occasion? Never [facility] Do you feel stress - tense, restless, nervous, or anxious, or unable to sleep at night because your mind is troubled all the time - these days [OSQ] Not at all [facility] (I/We) worried whekoby er (my/our) food would run out before (I/we) got money to buy more. Never true [facility] In the past 12 month s, was there a time when you were not able to pay the mortgage or rent on time? No [facility] Start: 08-07-2021 Gender identity Identifies as male gender (finding) [facility] Start: 08-07-2021 Sexual orientation Heterosexual (finding) [facility] Medical Equipment Procedure Code Equipment Code Equipment Origin al Text Equipment Identifier Dates Test blood sugar(s) 1 times daily. Dx: Type 2 DM - Controlled E11.9 Insulin: No [id number] Start: 10-19-2016 End: 05-26-2022 Comment on above: Test blood sugar(s) 1 times daily. Dx: Type 2 DM - Controlled E11.9 Insulin: No Glucometer with test strips (whatever is covered by insurance) Dx: E11.9 Testing once per day Start: 10-17-2016 End: 05-26-2022 Comment on above: Glucometer with test strips (whatever is covered by insurance) Dx: E11.9 Testing once per day Clinical Notes 08-08-2021 to 01-14-2024 Telephone Encounter - Ninfa Bryson LPN - 01/14/2024 1:40 PM EDTTelephone Encounter - Ninfa Bryson LPN - 01/14/2024 1:40 PM EDTTelephone Encounter - Gary Kelly DO - 01/14/2024 1:23 PM EDT Note Date & Type Note Facility 01-14-2024 Telephone encounter Note Spoke with pts. , informed CT looks good, F/U in 1 year as scheduled. Also sent information to pt. Via my chart. Ninfa Bryson LPN [facility] 01-14-2024 Miscellaneous Notes Spoke with pts. , informed CT looks good, F/U in 1 year as scheduled. Also sent information to pt. Via my chart. Ninfa Bryson LPN Can let him know the recent CT scan showed his bones still look good. Can follow-up next year as scheduled. documented in this encounter [facility] 01-14-2024 Telephone encounter Note Can let him know the recent CT scan showed his bones still look good. Can follow-up next year as scheduled. [facility] Work Phone: 12-31-2023 Note HNO ID: [id number] Author: GARY KELLY, DO Service: ? Author Type: Physician Type: Progress Notes Filed: 12/31/2023 14:52 Note Text: HPI: The patient is a 83-year-old gentleman with a past medical history significant for hypertension, hyperlipidemia, first-degree AV block, colon polyps, BPH, CKD stage III, type 2 diabetes, 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 No MS pain. No symptoms of sensory neuropathy. Presents for ongoing hematologic management. Interim history: He offers no complaints today. No acute illnesses in the last year. PAST MEDICAL HISTORY Diagnosis Date Benign neoplasm of colon Bronchitis Diabetes mellitus, type 2 (HCC) diet controlled Diverticulosis of small intestine (without mention of hemorrhage) First degree atrioventricular block Hypertensive kidney disease, benign Internal hemorrhoids without mention of complication Pure hypercholesterolemia Sinusitis SVT (supraventricular tachycardia) (HCC) Syncope PAST SURGICAL HISTORY Procedure Laterality Date COLONOSCOPY FLX DX W/COLLJ SPEC WHEN PFRMD 03/18/2001 Colonoscopy COLONOSCOPY FLX DX W/COLLJ SPEC WHEN PFRMD 10/24/2012 Colonoscopy COLONOSCOPY W/BIOPSY SINGLE/MULTIPLE 04/24/2006 CYSTOURETHROSCOPY 08/21/2002 Cystoscopy; Dr. Ortiz Meza. ECHOCARDIOGRAM 05/23/2018 normal LV systolic fxn; LVEF 65%; stage I diastolic dysfxn; no substantial valvular abnormalities LAPAROSCOPY SURG CHOLECYSTECTOMY Cholecystectomy, lap REMV CATARACT EXTRACAP,INSERT LENS Bilateral 06/2023 Dr. Fish STRESS TEST EXERCISE-NUCLEAR 05/24/2018 [facility] protocol 8 min 46 sec; 104% MPHR; 10.1 METs; narrow complex tachycardia in late peak and early recovery stages, 140s bpm TRURL ELECTROSURG RESCJ PROSTATE BLEED COMPLETE 10/2012 TURP ALLERGIES Allergen Reactions Lisinopril Intolerance Victoriano Cough Current Outpatient Medications Medication Sig cetirizine (ZYRTEC) 10 mg tablet Take 1 tablet by mouth once daily. doxazosin (CARDURA) 4 mg tablet Take 1 tablet by mouth daily at bedtime. amLODIPine (NORVASC) 5 mg tablet Take 1 tablet by mouth once daily. Tadalafil (CIALIS) 20 mg tablet Take 1 tablet by mouth as needed. Take 30-60 minutes prior to sexual activity losartan (COZAAR) 50 mg tablet Take 1 tablet by mouth every afternoon. fluticasone (FLONASE) 50 mcg/actuation nasal spray Use 2 Sprays in each nostril once daily. Rinse mouth after use. (Patient taking differently: Use 2 Sprays in each nostril as needed. Rinse mouth after use.) simvastatin (ZOCOR) 20 mg tablet Take 1 tablet by mouth daily at bedtime. ergocalciferol, vitamin D2, (VITAMIN D2 ORAL) Take 2 capsules by mouth once daily. Aspirin 81 mg Tab Take 81 mg by mouth once daily. MULTIVITAMIN TAB Take one(1) tablet daily. (Patient taking differently: Take 1 tablet by mouth once daily.) pantoprazole DR (PROTONIX) 40 mg tablet Take 1 tablet by mouth once daily. (Patient not taking: Reported on 12/31/2023) blood sugar diagnostic (FREESTYLE LITE STRIPS) test strip Test blood sugar(s) 1 times daily. Dx: Type 2 DM - Controlled E11.9 Insulin: No No current facility-administered medications for this visit. Social History Tobacco Use Smoking status: Former Current packs/day: 0.00 Average packs/day: 0.5 packs/day for 10.0 years (5.0 ttl pk-yrs) Types: Cigarettes Start date: 1968 Quit date: 1978 Years since quittin.7 Smokeless tobacco: Never Tobacco comments: quit 50 years ago Vaping Use Vaping status: Never Used Substance Use Topics Alcohol use: No Drug use: No Family History Problem Relation Age of Onset Stroke Mother dm Hypertension Mother Diabetes Mother Heart disease Mother Heart Father dm Heart disease Father Diabetes Father Diabetes Sister Diabetes Sister Heart Brother dm Diabetes Brother other (brain cancer) Brother dm Social History Tobacco Use Smoking status: Former Current packs/day: 0.00 Average packs/day: 0.5 packs/day for 10.0 years (5.0 ttl pk-yrs) Types: Cigarettes Start date: 1968 Quit date: 1978 Years since quittin.7 Smokeless tobacco: Never Tobacco comments: quit 50 years ago Vaping Use Vaping status: Never Used Substance Use Topics Alcohol use: No Drug use: No Family History Problem Relation Age of Onset Stroke Mother dm Hypertension Mother Diabetes Mother Heart disease Mother Heart Father dm Heart disease Father Diabetes Father Diabetes Sister Diabetes Sister Heart Brother dm Diabetes Brother other (brain cancer) Brother dm PHYSICAL EXAM: Vitals: Blood pressure 151/77, pulse (!) 53, temperature 36.8 ?C (98.2 ?F), temperature source Temporal, weight 86.6 kg (191 lb), SpO2 98%. Well-appearing and in no acute distress. EYES: Sclerae are anicteric bilaterally. LYMPHATIC: There is no palpable cervical, supraclavicular adenopathy. RESPIRATORY: Inspiratory breath sounds are of normal intensity in all fie (more content not included)... [facility] 12-31-2023 History of Present illness Narrative HPI: The patient is a 83-year-old gentleman with a past medical history significant for hypertension, hyperlipidemia, first-degree AV block, colon polyps, BPH, CKD stage III, type 2 diabetes, 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 No MS pain. No symptoms of sensory neuropathy. Presents for ongoing hematologic management. Interim history: He offers no complaints today. No acute illnesses in the last year. PAST MEDICAL HISTORY Diagnosis Date Benign neoplasm of colon Bronchitis Diabetes mellitus, type 2 (HCC) diet controlled Diverticulosis of small intestine (without mention of hemorrhage) First degree atrioventricular block Hypertensive kidney disease, benign Internal hemorrhoids without mention of complication Pure hypercholesterolemia Sinusitis SVT (supraventricular tachycardia) (HCC) Syncope PAST SURGICAL HISTORY Procedure Laterality Date COLONOSCOPY FLX DX W/COLLJ SPEC WHEN PFRMD 03/18/2001 Colonoscopy COLONOSCOPY FLX DX W/COLLJ SPEC WHEN PFRMD 10/24/2012 Colonoscopy COLONOSCOPY W/BIOPSY SINGLE/MULTIPLE 04/24/2006 CYSTOURETHROSCOPY 08/21/2002 Cystoscopy; Dr. Ortiz Meza. ECHOCARDIOGRAM 05/23/2018 normal LV systolic fxn; LVEF 65%; stage I diastolic dysfxn; no substantial valvular abnormalities LAPAROSCOPY SURG CHOLECYSTECTOMY Cholecystectomy, lap REMV CATARACT EXTRACAP,INSERT LENS Bilateral 06/2023 Dr. Fish STRESS TEST EXERCISE-NUCLEAR 05/24/2018 [facility] protocol 8 min 46 sec; 104% MPHR; 10.1 METs; narrow complex tachycardia in late peak and early recovery stages, 140s bpm TRURL ELECTROSURG RESCJ PROSTATE BLEED COMPLETE 10/2012 TURP ALLERGIES Allergen Reactions Lisinopril Intolerance Victoriano Cough Current Outpatient Medications Medication Sig cetirizine (ZYRTEC) 10 mg tablet Take 1 tablet by mouth once daily. doxazosin (CARDURA) 4 mg tablet Take 1 tablet by mouth daily at bedtime. amLODIPine (NORVASC) 5 mg tablet Take 1 tablet by mouth once daily. Tadalafil (CIALIS) 20 mg tablet Take 1 tablet by mouth as needed. Take 30-60 minutes prior to sexual activity losartan (COZAAR) 50 mg tablet Take 1 tablet by mouth every afternoon. fluticasone (FLONASE) 50 mcg/actuation nasal spray Use 2 Sprays in each nostril once daily. Rinse mouth after use. (Patient taking differently: Use 2 Sprays in each nostril as needed. Rinse mouth after use.) simvastatin (ZOCOR) 20 mg tablet Take 1 tablet by mouth daily at bedtime. ergocalciferol, vitamin D2, (VITAMIN D2 ORAL) Take 2 capsules by mouth once daily. Aspirin 81 mg Tab Take 81 mg by mouth once daily. MULTIVITAMIN TAB Take one(1) tablet daily. (Patient taking differently: Take 1 tablet by mouth once daily.) pantoprazole DR (PROTONIX) 40 mg tablet Take 1 tablet by mouth once daily. (Patient not taking: Reported on 12/31/2023) blood sugar diagnostic (FREESTYLE LITE STRIPS) test strip Test blood sugar(s) 1 times daily. Dx: Type 2 DM - Controlled E11.9 Insulin: No No current facility-administered medications for this visit. Social History Tobacco Use Smoking status: Former Current packs/day: 0.00 Average packs/day: 0.5 packs/day for 10.0 years (5.0 ttl pk-yrs) Types: Cigarettes Start date: 1968 Quit date: 1978 Years since quittin.7 Smokeless tobacco: Never Tobacco comments: quit 50 years ago Vaping Use Vaping status: Never Used Substance Use Topics Alcohol use: No Drug use: No Family History Problem Relation Age of Onset Stroke Mother dm Hypertension Mother Diabetes Mother Heart disease Mother Heart Father dm Heart disease Father Diabetes Father Diabetes Sister Diabetes Sister Heart Brother dm Diabetes Brother other (brain cancer) Brother dm Social History Tobacco Use Smoking status: Former Current packs/day: 0.00 Average packs/day: 0.5 packs/day for 10.0 years (5.0 ttl pk-yrs) Types: Cigarettes Start date: 1968 Quit date: 1978 Years since quittin.7 Smokeless tobacco: Never Tobacco comments: quit 50 years ago Vaping Use Vaping status: Never Used Substance Use Topics Alcohol use: No Drug use: No Family History Problem Relation Age of Onset Stroke Mother dm Hypertension Mother Diabetes Mother Heart disease Mother Heart Father dm Heart disease Father Diabetes Father Diabetes Sister Diabetes Sister Heart Brother dm Diabetes Brother other (brain cancer) Brother dm PHYSICAL EXAM: Vitals: Blood pressure 151/77, pulse (!) 53, temperature 36.8 C (98.2 F), temperature source Temporal, weight 86.6 kg (191 lb), SpO2 98%. Well-appearing and in no acute distress. EYES: Sclerae are anicteric bilaterally. LYMPHATIC: There is no palpable cervical, supraclavicular adenopathy. RESPIRATORY: Inspiratory breath sounds are of normal intensity in all [place]. No rales, wheezes or rhonchi. CARDIOVASCULAR: Rhythm is regular. ABDOMEN: The abdomen is nondistended. No splenomegaly or hepatomegaly. No tenderness. SKIN: No jaundice. LABS: Latest Ref [facility] 12/24/2023 WBC 3.70 - 11.00 k/uL 4.98 RBC 4.20 - 6.00 m/uL 4.82 Hemoglobin 13.0 - 17.0 g/dL 13.5 Hematocrit 39.0 - 51.0 % 41.3 MCV 80.0 - 100.0 fL 85.7 MCH 26.0 - 34.0 pg 28.0 MCHC 30.5 - 36.0 g/dL 32.7 RDW-CV 11.5 - 15.0 % 13.7 Platelet Count 150 - 400 k/uL 162 MPV 9.0 - 12.7 fL 9.9 Neut% % 71.1 Abs Neut (ANC) 1.45 - 7.50 k/uL 3.54 Lymph% % 15.9 Abs Lymph 1.00 - 4.00 k/uL 0.79 (L) [place]% % 7.[address] [place] <0.87 k/uL 0.38 Eosin% % 4.6 Abs Eosin <0.46 k/uL 0.23 Baso% % 0.4 Abs Baso <0.11 k/uL <0.03 Immature Gran % % 0.4 IMMATURE GRANS (ABS) <0.10 k/uL <0.03 NRBC /100 WBC 0.0 Absolute nRBC <0.01 k/uL <0.01 DTYPE Auto Protein, Total 6.3 - 8.0 g/dL 7.2 Albumin 3.9 - 4.9 g/dL 4.5 Calcium 8.5 - 10.2 mg/dL 9.8 Bilirubin, Total 0.2 - 1.3 mg/dL 0.9 Alkaline Phosphatase 38 - 113 U/L 51 AST 14 - 40 U/L 16 ALT 10 - 54 U/L 13 Glucose 74 - 99 mg/dL 112 (H) BUN 9 - 24 mg/dL 34 (H) Creatinine 0.73 - 1.22 mg/dL 1.55 (H) Sodium 136 - 144 mmol/L 139 Potassium 3.7 - 5.1 mmol/L 4.2 Chloride 98 - 107 mmol/L 107 CO2 22 - 30 mmol/L 21 (L) Anion Gap 8 - 15 mmol/L 11 eGFR >=60 mL/min/1.73m 44 (L) LD 135 - 225 U/L 177 B2 Microglobulin <3.1 mg/L 4.0 (H) Latest Ref Rng 12/24/2023 Albumin 3.43 - 5.41 g/dL 4.26 Alpha 1 Globulin 0.18 - 0.43 g/dL 0.19 Alpha 2 Globulin 0.42 - 0.98 g/dL 0.67 Beta Globulin 0.61 - 1.17 g/dL 0.62 Gamma Globulin 0.53 - 1.51 g/dL 1.16 Interpretation (Prot Electro) No definitive M protein is identified on protein electrophoresis. An M protein is identified on protein electrophoresis. ! Interpretation Comment for Protein Electrophoresis See separate immunofixation report for characterization of monoclonal gammopathy. M-Protein Location Gamma Fraction 1 M-Protein Concentration <=0.00 g/dL 0.60 (H) SPE Staff Review Reviewed by Dr. Mickie Mclaughlin MD IgG 700 - 1,600 mg/dL 1,350 IgA 70 - 400 mg/dL 131 IgM 40 - 230 mg/dL <25 (L) MPA Result No M protein is identified. M protein is present. ! Interpretation (MPA) Atypical restricted bands are present in the IgG and kappa regions. Consistent with IgG kappa monoclonal gammopathy. Staff Review (MPA) Reviewed by Dr. Mickie Mclaughlin MD Wray Free, Serum 3.3 - 19.4 mg/L 30.9 (H) Lambda Free, Serum 5.7 - 26.3 mg/L 29.9 (H) K/L Ratio, Serum 0.26 - 1.65 1.03 Protein, Total 6.3 - 8.0 g/dL 6.9 Latest Ref Rng 12/24/2023 Albumin, Urine (Prot Electro) % 65.39 Alpha 1 Globulin, Urine % 2.45 Alpha 2 Globulin, Urine % 9.54 Beta Globulin, Urine % 14.08 Gamma Globulin, Urine % 8.53 Interpretation (Urine Electro) No definitive M protein is identified on protein electrophoresis. An atypical region of restricted mobility is identified on protein electrophoresis. ! Interpretation Comment for Protein Electrophoresis The atypical region is relatively poorly defined and may represent an unusual presentation of polyclonal immunoglobulins, but cannot rule out the presence of a low level M protein. If clinically indicated, monoclonal protein analysis and serum free light chain analysis are suggested to evaluate further for monoclonal gammopathy. Staff Review (Urine Electro) Reviewed by Dr. Mickie Mclaughlin MD Result (UMPA) No M protein is identified. M protein is present. ! Interpretation (UMPA) Atypical restricted bands are present in the IgG and kappa regions. Consistent with IgG kappa monoclonal gammopathy. Staff Review (UMPA) Reviewed by Dr. Mickie Mclaughlin MD Protein, Urine Random 0 - 20 mg/dL 10 Latest Ref Rn 06/22/2023 Albumin %, 24 Hr Urine % 72.86 Alpha 1 Globulin %, 24 Hr Ur % 2.81 Alpha 2 Globulin %, 24 Hr Ur % 7.11 Beta Globulin %, 24 Hr Ur % 11.84 Gamma Globulin %, 24 Hr Ur % 5.37 Interpretation (UEPG24) No definitive M protein is identified on protein electrophoresis. An M protein is identified on protein electrophoresis. ! M Bradford Quant, 24 Hr Urine -- Staff Review (UEPG24) Reviewed by Denia Kramer MD Interpretation Comment for Protein Electrophoresis See separate immunofixation report for characterization of monoclonal gammopathy. Result (UMPA) No M protein is identified. M protein is present. ! Interpretation (UMPA) Atypical restricted bands are present in the IgG and kappa regions. Consistent with IgG kappa monoclonal gammopathy. Staff Review (UMPA) Reviewed by Denia Kramer MD Protein, Timed Urine <0.15 g/24 Hr 0.25 (H) Period hr 24 Urine Volume 24 hour mL 2,100 ASSESSMENT/PLAN: (D47.2) MGUS (monoclonal gammopathy of unknown significance) (primary encounter diagnosis) Assessment: -Low-level IgG kappa MGUS. -Stable over the last 6 months. -Light chain ratio normal. -Reviewed labs. Stable CKD. -Discussed with him and his definition of MGUS. -No previous bone imaging. Plan: -Whole-body bone CT (he is claustrophobic for MRI). -If okay then follow-up in 1 year. Portions of this documentation were copied and pasted from previous office visit notes in order to provide a cohesive continuity of the history. The note has been reviewed and edited and updated as necessary. I spent a total of 25 minutes on the date of the service which included preparing to see the patient, cuax-ey-nolf patient care, completing clinical documentation, obtaining and/or reviewing separately obtained history, performing a medically appropriate examination, counseling and educating the patient/family/caregiver, ordering medications, tests, or procedures, communicating with other HCPs (not separately reported), and communicating results to the patient/family/caregiver. Gary Kelly DO documented in this encounter [facility] 12-06-2023 Telephone encounter Note The following approved medication requests have been transmitted electronically. Requested Prescriptions Signed Prescriptions Disp Refills cetirizine (ZYRTEC) 10 mg tablet 90 tablet 3 Sig: Take 1 tablet by mouth once daily. Authorizing Provider: ELIZABETH AVILA APRN.CNP [facility] 12-06-2023 Miscellaneous Notes The following approved medication requests have been transmitted electronically. Requested Prescriptions Signed Prescriptions Disp Refills cetirizine (ZYRTEC) 10 mg tablet 90 tablet 3 Sig: Take 1 tablet by mouth once daily. Authorizing Provider: ELIZABETH AVILA APRN.CNP documented in this encounter [facility] 11-23-2023 Telephone encounter Note See message and advise. Kinza Wasserman MA [facility] 11-23-2023 Miscellaneous Notes See message and advise. Kinza Wasserman MA documented in this encounter [facility] 11-23-2023 History of Present illness Narrative Chief Complaint Patient presents with: Follow Up: 6 month HPI Qian Pink is a 82 year old male who presents here today for Chronic Medical Conditions. Patient here for follow-up exam. Here with . Reviewed labs with patient. Taking his medication as prescribed for type 2 diabetes, hyperlipidemia, hypertension, reflux. Following with nephrology for CKD stage III. GFR has ranged from 41-52 for the past few years. Most recently GFR 42. Only complaint is dizziness with bending over. BP at home can be up and down. Newest change was Cardura changed from 2 to 4 mg by urology. Following with urology for BPH Following with heme-onc for MGUS. Past medical history, appointments, medications, allergies reviewed. EXAM: BP 112/60 Pulse (!) 52 Resp 16 Wt 85.7 kg (189 lb) SpO2 98% BMI 27.06 kg/m General Appearance: Well appearing, alert, in no acute distress, well-hydrated, well nourished.. Lungs: Lungs clear to auscultation. No wheezing, rhonchi, rales.. Heart: RRR without murmur, gallop, or rubs. No ectopy. Extremities: No deformities, edema, skin discoloration, clubbing or cyanosis. Good capillary refill. . Latest Ref Rng 11/16/2023 Protein, Total 6.3 - 8.0 g/dL 6.9 Albumin 3.9 - 4.9 g/dL 4.4 Calcium 8.5 - 10.2 mg/dL 9.7 Bilirubin, Total 0.2 - 1.3 mg/dL 1.1 Alkaline Phosphatase 38 - 113 U/L 52 AST 14 - 40 U/L 13 (L) ALT 10 - 54 U/L 12 Glucose 74 - 99 mg/dL 121 (H) BUN 9 - 24 mg/dL 34 (H) Creatinine 0.73 - 1.22 mg/dL 1.61 (H) Sodium 136 - 144 mmol/L 141 Potassium 3.7 - 5.1 mmol/L 4.3 Chloride 98 - 107 mmol/L 108 (H) CO2 22 - 30 mmol/L 22 Anion Gap 8 - 15 mmol/L 11 eGFR >=60 mL/min/1.73m 42 (L) Cholesterol, Total <200 mg/dL 140 Triglyceride <150 mg/dL 49 HDL Cholesterol >39 mg/dL 51 Non HDL Cholesterol <130 mg/dL 89 Fasting Time hrs 12 VLDL Cholesterol <30 mg/dL 10 TC:HDL Ratio <5.10 2.75 LDL Cholesterol <100 mg/dL 79 LDL:HDL Ratio <2.54 1.55 Hemoglobin A1C 4.3 - 5.6 % 5.9 (H) Estimated Average Glucose mg/dL 123 ASSESSMENT/PLAN: 1. Type 2 diabetes 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, without long-term current use of insulin, unspecified whether stage 3a or 3b CKD (HCC) - ICD9: 250.40, 585.3, ICD10: E11.22, N18.30 (primary diagnosis) - Controlled - Continue current medications - eGFR: 42 Stable - HEMOGLOBIN A1C - LIPID PANEL BASIC - COMPREHENSIVE METABOLIC PANEL - COMPLETE BLOOD COUNT AND DIFFERENTIAL - ALBUMIN/CREATININE RATIO, URINE 2. Stage 3b chronic kidney disease (HCC) - ICD9: 585.3, ICD10: N18.32 - Continue following with tufter operator. - COMPREHENSIVE METABOLIC PANEL - COMPLETE BLOOD COUNT AND DIFFERENTIAL 3. Hyperlipidemia, unspecified hyperlipidemia type - ICD9: 272.4, ICD10: E78.5 - Controlled - Continue current medications - Counseled on healthy diet and regular exercise - LIPID PANEL BASIC 4. Essential hypertension, benign - ICD9: 401.1, ICD10: I10 - Controlled - Decrease amlodipine to 2.5 mg for a few weeks. Mychart with update on symptoms blood pressure readings. - Recommend home blood pressure monitoring, to bring results to next visit - Encouraged sodium restriction, DASH or Mediterranean diet - Recommend regular aerobic exercise - COMPREHENSIVE METABOLIC PANEL - COMPLETE BLOOD COUNT AND DIFFERENTIAL - AMLODIPINE 2.5 MG TABLET 5. Gastroesophageal reflux disease without esophagitis - ICD9: 530.81, ICD10: K21.9 - Stable on protonix Rafael Ramirez APRN.CNP RTO in 6 months, sooner if needed. This note was partly generated using [employer] voice recognition dictation and may contain some misspelled or inaccurate words missed on review. documented in this encounter [facility] 11-23-2023 Note HNO ID: [id number] Author: RAFAEL RAMIREZ APRN.CNP Service: ? Author Type: Nurse Practitioner Type: Progress Notes Filed: 11/23/2023 13:48 Note Text: Chief Complaint Patient presents with: Follow Up: 6 month HPI Qian Pink is a 82 year old male who presents here today for Chronic Medical Conditions. Patient here for follow-up exam. Here with . Reviewed labs with patient. Taking his medication as prescribed for type 2 diabetes, hyperlipidemia, hypertension, reflux. Following with nephrology for CKD stage III. GFR has ranged from 41-52 for the past few years. Most recently GFR 42. Only complaint is dizziness with bending over. BP at home can be up and down. Newest change was Cardura changed from 2 to 4 mg by urology. Following with urology for BPH Following with heme-onc for MGUS. Past medical history, appointments, medications, allergies reviewed. EXAM: BP 112/60 Pulse (!) 52 Resp 16 Wt 85.7 kg (189 lb) SpO2 98% BMI 27.06 kg/m? General Appearance: Well appearing, alert, in no acute distress, well-hydrated, well nourished.. Lungs: Lungs clear to auscultation. No wheezing, rhonchi, rales.. Heart: RRR without murmur, gallop, or rubs. No ectopy. Extremities: No deformities, edema, skin discoloration, clubbing or cyanosis. Good capillary refill. . Latest Ref Rng 11/16/2023 Protein, Total 6.3 - 8.0 g/dL 6.9 Albumin 3.9 - 4.9 g/dL 4.4 Calcium 8.5 - 10.2 mg/dL 9.7 Bilirubin, Total 0.2 - 1.3 mg/dL 1.1 Alkaline Phosphatase 38 - 113 U/L 52 AST 14 - 40 U/L 13 (L) ALT 10 - 54 U/L 12 Glucose 74 - 99 mg/dL 121 (H) BUN 9 - 24 mg/dL 34 (H) Creatinine 0.73 - 1.22 mg/dL 1.61 (H) Sodium 136 - 144 mmol/L 141 Potassium 3.7 - 5.1 mmol/L 4.3 Chloride 98 - 107 mmol/L 108 (H) CO2 22 - 30 mmol/L 22 Anion Gap 8 - 15 mmol/L 11 eGFR >=60 mL/min/1.73m? 42 (L) Cholesterol, Total <200 mg/dL 140 Triglyceride <150 mg/dL 49 HDL Cholesterol >39 mg/dL 51 Non HDL Cholesterol <130 mg/dL 89 Fasting Time hrs 12 VLDL Cholesterol <30 mg/dL 10 TC:HDL Ratio <5.10 2.75 LDL Cholesterol <100 mg/dL 79 LDL:HDL Ratio <2.54 1.55 Hemoglobin A1C 4.3 - 5.6 % 5.9 (H) Estimated Average Glucose mg/dL 123 ASSESSMENT/PLAN: 1. Type 2 diabetes 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, without long-term current use of insulin, unspecified whether stage 3a or 3b CKD (HCC) - ICD9: 250.40, 585.3, ICD10: E11.22, N18.30 (primary diagnosis) - Controlled - Continue current medications - eGFR: 42 Stable - HEMOGLOBIN A1C - LIPID PANEL BASIC - COMPREHENSIVE METABOLIC PANEL - COMPLETE BLOOD COUNT AND DIFFERENTIAL - ALBUMIN/CREATININE RATIO, URINE 2. Stage 3b chronic kidney disease (HCC) - ICD9: 585.3, ICD10: N18.32 - Continue following with tufter operator. - COMPREHENSIVE METABOLIC PANEL - COMPLETE BLOOD COUNT AND DIFFERENTIAL 3. Hyperlipidemia, unspecified hyperlipidemia type - ICD9: 272.4, ICD10: E78.5 - Controlled - Continue current medications - Counseled on healthy diet and regular exercise - LIPID PANEL BASIC 4. Essential hypertension, benign - ICD9: 401.1, ICD10: I10 - Controlled - Decrease amlodipine to 2.5 mg for a few weeks. Mychart with update on symptoms blood pressure readings. - Recommend home blood pressure monitoring, to bring results to next visit - Encouraged sodium restriction, DASH or Mediterranean diet - Recommend regular aerobic exercise - COMPREHENSIVE METABOLIC PANEL - COMPLETE BLOOD COUNT AND DIFFERENTIAL - AMLODIPINE 2.5 MG TABLET 5. Gastroesophageal reflux disease without esophagitis - ICD9: 530.81, ICD10: K21.9 - Stable on protonix Rafael Ramirez APRN.DATA ANALYTICS ANALYST RTO in 6 months, sooner if needed. This note was partly generated using [employer] voice recognition dictation and may contain some misspelled or inaccurate words missed on review. [facility] 11-23-2023 Evaluation note Diagnosis Type 2 diabetes 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, without long-term current use of insulin, unspecified whether stage 3a or 3b CKD (HCC)- Primary Stage 3b chronic kidney disease (HCC) Hyperlipidemia, unspecified hyperlipidemia type Essential hypertension, benign Gastroesophageal reflux disease without esophagitis Esophageal reflux documented in this encounter [facility]03-22-2024 History of Present illness Narrative* Ginger Khan - 06/29/2023 1:30 PM EDT Qian Pink 1940 06/29/2023 HPI: The patient is a 81-year-old gentleman with a past medical history significant for hypertension, hyperlipidemia, first-degree AV block, colon polyps, BPH, CKD stage III, type 2 diabetes, 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 No MS pain. No symptoms of sensory neuropathy. Interval History: Mr. Pink presents today with his spouse for follow up of low risk IgG kappa MGUS. He reports feeling well overall. Denies new issues. No CASILLAS, dizziness. No new aches or pains, lumps or bumps. DeniesSOB, CP, palpitations. BP runs better at home 150/60s. Had to cut back on some BP meds because he was becoming too hypotensive. Denies any changes in bowel or bladder habits. No bleeding. Follows with tufter operator. Appetite is good, energy level is stable. Denies neuropathy. Upcoming cataract surgery in July. Reviewed labs in detail today, cbc, light chains remain stable. Kidney function has improved. PAST MEDICAL HISTORY Diagnosis Date Benign neoplasm of colon Bronchitis Diabetes mellitus, type 2 (HCC) diet controlled Diverticulosis of small intestine (without mention of hemorrhage) First degree atrioventricular block Hypertensive kidney disease, benign Internal hemorrhoids without mention of complication Pure hypercholesterolemia Sinusitis SVT (supraventricular tachycardia) (HCC) Syncope PAST SURGICAL HISTORY Procedure Laterality Date COLONOSCOPY FLX DX W/COLLJ SPEC WHEN PFRMD 03/18/2001 Colonoscopy COLONOSCOPY FLX DX W/COLLJ SPEC WHEN PFRMD 10/24/12 Colonoscopy COLONOSCOPY W/BIOPSY SINGLE/MULTIPLE 04/24/2006 CYSTOURETHROSCOPY 08/21/2002 Cystoscopy; Dr. Ortiz Meza. ECHOCARDIOGRAM 05/23/2018 normal LV systolic fxn; LVEF 65%; stage I diastolic dysfxn; no substantial valvular abnormalities LAPAROSCOPY SURG CHOLECYSTECTOMY Cholecystectomy, lap STRESS TEST EXERCISE-NUCLEAR 05/24/2018 [facility] protocol 8 min 46 sec; 104% MPHR; 10.1 METs; narrow complex tachycardia in late peak and early recovery stages, 140s bpm TRURL ELECTROSURG RESCJ PROSTATE BLEED COMPLETE 10/2012 TURP ALLERGIES Allergen Reactions Lisinopril Intolerance Victoriano Cough Current Outpatient Medications Medication Sig amLODIPine (NORVASC) 5 mg tablet Take 1 tablet by mouth once daily. pantoprazole DR (PROTONIX) 40 mg tablet Take 1 tablet by mouth once daily. cetirizine (ZYRTEC) 10 mg tablet Take 1 tablet by mouth once daily. Tadalafil (CIALIS) 20 mg tablet Take 1 tablet by mouth as needed. Take 30-60 minutes prior to sexual activity losartan (COZAAR) 50 mg tablet Take 1 tablet by mouth every afternoon. fluticasone (FLONASE) 50 mcg/actuation nasal spray Use 2 Sprays in each nostril once daily. Rinse mouth after use. (Patient taking differently: Use 2 Sprays in each nostril as needed. Rinse mouth after use.) doxazosin (CARDURA) 2 mg tablet Take 1 tablet by mouth daily at bedtime. simvastatin (ZOCOR) 20 mg tablet Take 1 tablet by mouth daily at bedtime. ergocalciferol, vitamin D2, (VITAMIN D2 ORAL) Take 2 capsules by mouth once daily. Aspirin 81 mg Tab Take 81 mg by mouth once daily. MULTIVITAMIN TAB Take one(1) tablet daily. (Patient taking differently: Take 1 tablet by mouth oncedaily.) blood sugar diagnostic (FREESTYLE LITE STRIPS) test strip Test blood sugar(s) 1 times daily. Dx: Type 2 DM - Controlled E11.9 Insulin: No No current facility-administered medications for this visit. Social History Tobacco Use Smoking status: Former Packs/day: 0.50 Years: 10.00 Additional pack years: 0.00 Total pack years: 5.00 Types: Cigarettes Start date: 1968 Quit date: 1978 Years since quittin.2 Smokeless tobacco: Never Tobacco comments: quit 50 years ago Vaping Use Vaping Use: Never used Substance Use Topics Alcohol use: No Drug use: No Family History Problem Relation Age of Onset Stroke Mother dm Hypertension Mother Diabetes Mother Heart disease Mother Heart Father dm Heart disease Father Diabetes Father Diabetes Sister Diabetes Sister Heart Brother dm Diabetes Brother other (brain cancer) Brother dm Social History Tobacco Use Smoking status: Former Packs/day: 0.50 Years: 10.00 Additional pack years: 0.00 Total pack years: 5.00 Types: Cigarettes Start date: 1968 Quit date: 1978 Years since quittin.2 Smokeless tobacco: Never Tobacco comments: quit 50 years ago Vaping Use Vaping Use: Never used Substance Use Topics Alcohol use: No Drug use: No Family History Problem Relation Age of Onset Stroke Mother dm Hypertension Mother Diabetes Mother Heart disease Mother Heart Father dm Heart disease Father Diabetes Father Diabetes Sister Diabetes Sister Heart Brother dm Diabetes Brother other (brain cancer) Brother dm ROS: All systems reviewed on 06/29/2023 with pertinent positives and negatives as outlined in the interval history. PHYSICAL EXAM: Vitals: Blood pressure 164/76, pulse (!) 59, temperature 37.1 C (98.7 F), weight 86.2 kg (190 lb), SpO2 98%. Well-appearing and in no acute distress. EYES: Sclerae are anicteric bilaterally. LYMPHATIC: There is no palpable adenopathy. RESPIRATORY: Inspiratory breath sounds are of normal intensity in all [place]. No rales, wheezes or rhonchi. CARDIOVASCULAR: Rhythm is regular. ABDOMEN: The abdomen is nondistended. No tenderness. No mass SKIN: No jaundice. EXTREMITIES: no edema. NEURO: No focal deficits. I have performed the physical exam today (06/29/2023) and have edited the note to correlate with current findings. LABS: Latest Reference Range & Units 11/01/22 07:15 11/24/22 14:43 06/01/23 11:30 06/20/23 11:03 WBC 3.70 - 11.00 k/uL 4.76 6.10 5.24 5.24 RBC 4.20 - 6.00 m/uL 5.23 5.10 5.06 5.35 Hemoglobin 13.0 - 17.0 g/dL 14.5 14.3 14.1 15.1 Hematocrit 39.0 - 51.0 % 46.9 44.7 42.5 45.0 Platelet Count 150 - 400 k/uL 169 185 168 166 MCV 80.0 - 100.0 fL 89.7 87.6 84.0 84.1 MCH 26.0 - 34.0 pg 27.7 28.0 27.9 28.2 MCHC 30.5 - 36.0 g/dL 30.9 32.0 33.2 33.6 MPV 9.0 - 12.7 fL 10.8 10.5 10.0 10.0 RDW-CV 11.5 - 15.0 % 13.8 13.8 13.6 13.7 Latest Reference Range & Units 11/01/22 07:15 11/24/22 14:43 05/17/23 07:26 06/20/23 11:03 Sodium 136 - 144 mmol/L 142 139 140 139 Potassium 3.7 - 5.1 mmol/L 4.5 4.4 4.8 4.4 Chloride 97 - 105 mmol/L 107 (H) 107 (H) 107 (H) 109 (H) CO2 22 - 30 mmol/L 23 23 26 23 BUN 9 - 24 mg/dL 37 (H) 34 (H) 35 (H) 33 (H) Creatinine 0.73 - 1.22 mg/dL 1.62 (H) 1.66 (H) 1.55 (H) 1.36 (H) Glucose 74 - 99 mg/dL 113 (H) 103 (H) 119 (H) 107 (H) Protein, Total 6.3 - 8.0 g/dL 6.8 6.7 6.7 7.1 7.6 Calcium 8.5 - 10.2 mg/dL 9.7 9.5 10.2 10.0 Phosphorus 2.7 - 4.8 mg/dL 2.8 Albumin 3.9 - 4.9 g/dL 4.3 4.3 4.4 4.6 Bilirubin, Total 0.2 - 1.3 mg/dL 1.1 1.0 0.9 1.0 Alkaline Phosphatase 38 - 113 U/L 47 50 55 52 ALT 10 - 54 U/L 15 16 15 18 AST 14 - 40 U/L 16 19 17 18 Anion Gap 9 - 18 mmol/L 12 9 7 (L) 7 (L) (H): Data is abnormally high (L): Data is abnormally low ASSESSMENT/PLAN: (D47.2) MGUS (monoclonal gammopathy of unknown significance) (primary encounter diagnosis) Assessment: -Low-level IgG kappa MGUS. Discussed with patient and spouse today. Reviewed overall clinical course with low level MGUS. Will continue to observe. -Previous kappa and lambda light chains elevated but ratio normal. Reviewed labs today. 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 No bland proteinuria. -Follows with nephrology -24-hour urine collection for electrophoresis and immunofixation. M protein is too faint for accurate quantitation. Plan: Continue to observe - RTC for OV in 6 months with labs Ginger Khan APRN.DATA ANALYTICS ANALYST I spent a total of 30 minutes on the date of the service which included preparing to see the patient, [id number] patient care, completing clinical documentation, counseling and educating the patient/family/caregiver, and ordering medications, tests, or procedures. Portions of this note including HPI, ROS, impression/plan may have been copied forward as to provide important historical information essential in contributing to medical decision making. Documentation has been reviewed and edited as necessary to support clinical decision making for today's visit and to reflect my own independent evaluation of this patient. documented in this encounter[facility]24 NoteHNO ID: [id number] Author: GINGER KHAN, ? Service: ? Author Type: Nurse Practitioner Type: Progress Notes Filed: 06/29/2023 14:25 Note Text: Qian Pink 1940 06/29/2023 HPI: The patient is a 81-year-old gentleman with a past medical history significant for hypertension, hyperlipidemia, first-degree AV block, colon polyps, BPH, CKD stage III, type 2 diabetes, 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 No MS pain. No symptoms of sensory neuropathy. Interval History: Mr. Pink presents today with his spouse for follow up of low risk IgG kappa MGUS. He reports feeling well overall. Denies new issues. No CASILLAS, dizziness. No new aches or pains, lumps or bumps. Denies SOB, CP, palpitations. BP runs better at home 150/60s. Had to cut back on some BP meds because he was becoming too hypotensive. Denies any changes in bowel or bladder habits. No bleeding. Follows with tufter operator. Appetite is good, energy level is stable. Denies neuropathy. Upcoming cataract surgery in July. Reviewed labs in detail today, cbc, light chains remain stable. Kidney function has improved. PAST MEDICAL HISTORY Diagnosis Date Benign neoplasm of colon Bronchitis Diabetes mellitus, type 2 (HCC) diet controlled Diverticulosis of small intestine (without mention of hemorrhage) First degree atrioventricular block Hypertensive kidney disease, benign Internal hemorrhoids without mention of complication Pure hypercholesterolemia Sinusitis SVT (supraventricular tachycardia) (HCC) Syncope PAST SURGICAL HISTORY Procedure Laterality Date COLONOSCOPY FLX DX W/COLLJ SPEC WHEN PFRMD 03/18/2001 Colonoscopy COLONOSCOPY FLX DX W/COLLJ SPEC WHEN PFRMD 10/24/12 Colonoscopy COLONOSCOPY W/BIOPSY SINGLE/MULTIPLE 04/24/2006 CYSTOURETHROSCOPY 08/21/2002 Cystoscopy; Dr. Ortiz Meza. ECHOCARDIOGRAM 05/23/2018 normal LV systolic fxn; LVEF 65%; stage I diastolic dysfxn; no substantial valvular abnormalities LAPAROSCOPY SURG CHOLECYSTECTOMY Cholecystectomy, lap STRESS TEST EXERCISE-NUCLEAR 05/24/2018 [facility]rie protocol 8 min 46 sec; 104% MPHR; 10.1 METs; narrow complex tachycardia in late peak and early recovery stages, 140s bpm TRURL ELECTROSURG RESCJ PROSTATE BLEED COMPLETE 10/2012 TURP ALLERGIES Allergen Reactions Lisinopril Intolerance Victoriano Cough Current Outpatient Medications Medication Sig amLODIPine (NORVASC) 5 mg tablet Take 1 tablet by mouth once daily. pantoprazole DR (PROTONIX) 40 mg tablet Take 1 tablet by mouth once daily. cetirizine (ZYRTEC) 10 mg tablet Take 1 tablet by mouth once daily. Tadalafil (CIALIS) 20 mg tablet Take 1 tablet by mouth as needed. Take 30-60 minutes prior to sexual activity losartan (COZAAR) 50 mg tablet Take 1 tablet by mouth every afternoon. fluticasone (FLONASE) 50 mcg/actuation nasal spray Use 2 Sprays in each nostril once daily. Rinse mouth after use. (Patient taking differently: Use 2 Sprays in each nostril as needed. Rinse mouth after use.) doxazosin (CARDURA) 2 mg tablet Take 1 tablet by mouth daily at bedtime. simvastatin (ZOCOR) 20 mg tablet Take 1 tablet by mouth daily at bedtime. ergocalciferol, vitamin D2, (VITAMIN D2 ORAL) Take 2 capsules by mouth once daily. Aspirin 81 mg Tab Take 81 mg by mouth once daily. MULTIVITAMIN TAB Take one(1) tablet daily. (Patient taking differently: Take 1 tablet by mouth once daily.) blood sugar diagnostic (FREESTYLE LITE STRIPS) test strip Test blood sugar(s) 1 times daily. Dx: Type 2 DM - Controlled E11.9 Insulin: No No current facility-administered medications for this visit. Social History Tobacco Use Smoking status: Former Packs/day: 0.50 Years: 10.00 Additional pack years: 0.00 Total pack years: 5.00 Types: Cigarettes Start date: 1968 Quit date: 1978 Years since quittin.2 Smokeless tobacco: Never Tobacco comments: quit 50 years ago Vaping Use Vaping Use: Never used Substance Use Topics Alcohol use: No Drug use: No Family History Problem Relation Age of Onset Stroke Mother dm Hypertension Mother Diabetes Mother Heart disease Mother Heart Father dm Heart disease Father Diabetes Father Diabetes Sister Diabetes Sister Heart Brother dm Diabetes Brother other (brain cancer) Brother dm Social History Tobacco Use Smoking status: Former Packs/day: 0.50 Years: 10.00 Additional pack years: 0.00 Total pack years: 5.00 Types: Cigarettes Start date: 1968 Quit date: 1978 Years since quittin.2 Smokeless tobacco: Never Tobacco comments: quit 50 years ago Vaping Use Vaping Use: Never used Substance Use Topics Alcohol use: No Drug use: No Family History Problem Relation Age of Onset Stroke Mother dm Hypertension Mother Diabetes Mother Heart disease Mother Heart Father dm Heart disease Father Diabetes Father Diabetes Sister Diabetes Sister Heart Brother dm Diabetes Brother o (more content not included)...[facility]03-04-2024 History of Present illness Narrative* Ángel Julio DO - 06/11/2023 10:40 AM EST [facility] SERVICE DATE: 06/11/2023 SERVICE TIME: 10:55 AM CHIEF COMPLAINT: Chronic kidney disease stage IIIb HPI: Mr. Pink is a 82 year old male with a PMHx of hypertension, diabetes mellitus, and hyperlipidemia who presents with chronic kidney disease stage IIIb. Chronic kidney disease stage IIIb etiology likely to obstructive uropathy, hypertensive nephrosclerosis, and diabetic nephropathy. Established 08/08/2021 - Recommended urology follow up 05/05/2022 - No recent issues. Renal labs every 6 months. Follow up in 12 months. Followed with hematology/oncology for IgG kappa MGUS. 24 hour urine with a poorly defined region ofrestricted mobility that may represent an M protein. 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 pantoprazole DR (PROTONIX) 40 mg tablet Take 1 tablet by mouth once daily. blood sugar diagnostic (FREESTYLE LITE STRIPS) test strip Test blood sugar(s) 1 times daily. Dx: Type 2 DM - Controlled E11.9 Insulin: No cetirizine (ZYRTEC) 10 mg tablet Take 1 tablet by mouth once daily. Tadalafil (CIALIS) 20 mg tablet Take 1 tablet by mouth as needed. Take 30-60 minutes prior to sexual activity losartan (COZAAR) 50 mg tablet Take 1 tablet by mouth every afternoon. fluticasone (FLONASE) 50 mcg/actuation nasal spray Use 2 Sprays in each nostril once daily. Rinse mouth after use. doxazosin (CARDURA) 2 mg tablet Take 1 tablet by mouth daily at bedtime. simvastatin (ZOCOR) 20 mg tablet Take 1 tablet by mouth daily at bedtime. ergocalciferol, vitamin D2, (VITAMIN D2 ORAL) Take 2 capsules by mouth once daily. Aspirin 81 mg Tab Take 81 mg by mouth once daily. MULTIVITAMIN TAB Take one(1) tablet daily. ALLERGIES: ALLERGIES Allergen Reactions Lisinopril Intolerance Victoriano Cough REVIEW OF SYSTEMS: Constitutional: No complaints Cardiovascular: No complaints Genitourinary: No complaints PHYSICAL EXAM: BP 153/76 (BP Site: Right Arm, BP Position: Sitting, BP Cuff Size: Large Adult) Pulse (!) 58 Resp 16 Wt 86.3 kg (190 lb 4.1 oz) BMI 27.24 kg/m Constitutional:No acute distress, Responsive, Normal habitus, and Well-nourished Neck:Trachea midline No jugular venous distension Cardiovascular:No peripheral edema Regular rate and ryhthm, normal S1 and S2, no murmurs, rubs, or gallops Respiratory:Normal respiratory effort. Lungs clear bilaterally. Abdomen:Soft, non-tender, non-distended. Normal bowel sounds. No hepatosplenomegaly. Psychiatric: Alert and oriented x self, place, time, and setting Normal mood/affect DATA: Diagnostic tests reviewed for today's visit: Glucose (mg/dL) Date Value 05/17/2023 119 05/21/2021 137 Potassium (mmol/L) Date Value 05/17/2023 4.8 05/21/2021 4.9 Sodium (mmol/L) Date Value 05/17/2023 140 05/21/2021 139 Chloride (mmol/L) Date Value 05/17/2023 107 05/21/2021 102 CO2 (mmol/L) Date Value 05/17/2023 26 05/21/2021 25 Creatinine (mg/dL) Date Value 05/17/2023 1.55 05/21/2021 1.82 BUN (mg/dL) Date Value 05/17/2023 35 05/21/2021 50 Anion Gap (mmol/L) Date Value 05/17/2023 7 05/21/2021 12 Calcium (mg/dL) Date Value 05/21/2021 10.4 Calcium, Total (mg/dL) Date Value 05/17/2023 10.2 Protein, Total (g/dL) Date Value 05/17/2023 7.1 05/21/2021 6.4 Albumin (g/dL) Date Value 05/17/2023 4.4 05/21/2021 3.9 Bilirubin, Total (mg/dL) Date Value 05/17/2023 0.9 05/21/2021 0.6 Alkaline Phosphatase (U/L) Date Value 05/17/2023 55 05/21/2021 167 AST (U/L) Date Value 05/17/2023 17 05/21/2021 58 ALT (U/L) Date Value 05/17/2023 15 05/21/2021 120 Recent Labs 06/01/23 1127 02/15/23 1422 11/01/22 0715 COLOR Yellow Yellow Light Yellow CLARITY Clear Clear Clear UGLUC Negative Negative Negative UBILI Negative Negative Negative UKET Negative Negative Negative SPGR 1.013 1.014 1.017 UHB Negative Negative Negative UPH 6.0 6.0 7.0 UPROT Negative Negative Negative NITRITES Negative Negative Negative LEUKEST Negative Negative Negative UWBC 0-5 /HPF 0-5 /HPF 0-5 /HPF URBC 0-2 /HPF 0-2 /HPF 0-3 /HPF ASSESSMENT: Mr. Pink is a 80 year old male with a PMHx of hypertension, diabetes mellitus, and hyperlipidemiawho presents with chronic kidney disease stage IIIb. Chronic kidney disease stage IIIb - Etiology likely to obstructive uropathy, hypertensive nephrosclerosis, and diabetic nephropathy. - Last urology appointment in 01/05/2021 - PVR 158 and then 89 when rescanned Normal renal function 2012 AUDI 08/20/2012. Renal function returned to baseline. Acute urinary retention. TURP 09/2012 with mild AUDI. Renal function steadily declining since 2019 - ACR negative - US kidney/bladder with increased renal echogenicity and a nodular enlarged prostate gland that invaginates into the bladder lumen which demonstrates wall trabeculation 2. Anemia of renal disease - Hemoglobin at goal 3. Secondary hyperparathyroidism - Will check PTH/Vit D 4. Primary hypertension - Elevated today on current medications Hypertension regimen: - Norvasc 5 mg daily - Losartan 50 mg daily 5. Hyperlipidemia - Statin 6. DMII: Well controlled diabetes since 2013 7. BPH - Yearly follow ups with urology 8. MGUS - Following with hematology. Will repeat labs and can follow up as needed if unchanged PLAN: - Continue current medications - Follow up yearly, sooner prn SIGNATURE: Ángel Julio DO PATIENT NAME: Qian Pink DATE: June 11, 2023 TIME: 9:45 AM OFFICE NUMBER: [phone] CC: PRIMARY CARE PHYSICIAN: Jenae Savage MD documented in this encounterMart[facility]03-04-[facility]24 NoteHNO ID: [id number] Author: ÁNGEL JULIO DO Service: ? Author Type: Physician Type: Progress Notes Filed: 06/11/2023 10:56 Note Text: [facility] SERVICE DATE: 06/11/2023 SERVICE TIME: 10:55 AM CHIEF COMPLAINT: Chronic kidney disease stage IIIb HPI: Mr. Pink is a 82 year old male with a PMHx of hypertension, diabetes mellitus, and hyperlipidemia who presents with chronic kidney disease stage IIIb. Chronic kidney disease stage IIIb etiology likely to obstructive uropathy, hypertensive nephrosclerosis, and diabetic nephropathy. Established 08/08/2021 - Recommended urology follow up 05/05/2022 - No recent issues. Renal labs every 6 months. Follow up in 12 months. Followed with hematology/oncology for IgG kappa MGUS. 24 hour urine with a poorly defined region of restricted mobility that may represent an M protein. 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 pantoprazole DR (PROTONIX) 40 mg tablet Take 1 tablet by mouth once daily. blood sugar diagnostic (FREESTYLE LITE STRIPS) test strip Test blood sugar(s) 1 times daily. Dx: Type 2 DM - Controlled E11.9 Insulin: No cetirizine (ZYRTEC) 10 mg tablet Take 1 tablet by mouth once daily. Tadalafil (CIALIS) 20 mg tablet Take 1 tablet by mouth as needed. Take 30-60 minutes prior to sexual activity losartan (COZAAR) 50 mg tablet Take 1 tablet by mouth every afternoon. fluticasone (FLONASE) 50 mcg/actuation nasal spray Use 2 Sprays in each nostril once daily. Rinse mouth after use. doxazosin (CARDURA) 2 mg tablet Take 1 tablet by mouth daily at bedtime. simvastatin (ZOCOR) 20 mg tablet Take 1 tablet by mouth daily at bedtime. ergocalciferol, vitamin D2, (VITAMIN D2 ORAL) Take 2 capsules by mouth once daily. Aspirin 81 mg Tab Take 81 mg by mouth once daily. MULTIVITAMIN TAB Take one(1) tablet daily. ALLERGIES: ALLERGIES Allergen Reactions Lisinopril Intolerance Victoriano Cough REVIEW OF SYSTEMS: Constitutional: No complaints Cardiovascular: No complaints Genitourinary: No complaints PHYSICAL EXAM: BP 153/76 (BP Site: Right Arm, BP Position: Sitting, BP Cuff Size: Large Adult) Pulse (!) 58 Resp 16 Wt 86.3 kg (190 lb 4.1 oz) BMI 27.24 kg/m? Constitutional:No acute distress, Responsive, Normal habitus, and Well-nourished Neck:Trachea midline No jugular venous distension Cardiovascular:No peripheral edema Regular rate and ryhthm, normal S1 and S2, no murmurs, rubs, or gallops Respiratory:Normal respiratory effort. Lungs clear bilaterally. Abdomen:Soft, non-tender, non-distended. Normal bowel sounds. No hepatosplenomegaly. Psychiatric: Alert and oriented x self, place, time, and setting Normal mood/affect DATA: Diagnostic tests reviewed for today's visit: Glucose (mg/dL) Date Value 05/17/2023 119 05/21/2021 137 Potassium (mmol/L) Date Value 05/17/2023 4.8 05/21/2021 4.9 Sodium (mmol/L) Date Value 05/17/2023 140 05/21/2021 139 Chloride (mmol/L) Date Value 05/17/2023 107 05/21/2021 102 CO2 (mmol/L) Date Value 05/17/2023 26 05/21/2021 25 Creatinine (mg/dL) Date Value 05/17/2023 1.55 05/21/2021 1.82 BUN (mg/dL) Date Value 05/17/2023 35 05/21/2021 50 Anion Gap (mmol/L) Date Value 05/17/2023 7 05/21/2021 12 Calcium (mg/dL) Date Value 05/21/2021 10.4 Calcium, Total (mg/dL) Date Value 05/17/2023 10.2 Protein, Total (g/dL) Date Value 05/17/2023 7.1 05/21/2021 6.4 Albumin (g/dL) Date Value 05/17/2023 4.4 05/21/2021 3.9 Bilirubin, Total (mg/dL) Date Value 05/17/2023 0.9 05/21/2021 0.6 Alkaline Phosphatase (U/L) Date Value 05/17/2023 55 05/21/2021 167 AST (U/L) Date Value 05/17/2023 17 05/21/2021 58 ALT (U/L) Date Value 05/17/2023 15 05/21/2021 120 Recent Labs 06/01/23 1127 02/15/23 1422 11/01/22 0715 COLOR Yellow Yellow Light Yellow CLARITY Clear Clear Clear UGLUC Negative Ne (more content not included)...[facility] 05-25-2023 History of Present illness Narrative* Rafael Ramirez APRN.DATA ANALYTICS ANALYST - 05/25/2023 1:00 PM EST Chief Complaint Patient presents with: F/U 6 Month HPI Qian Pink is a 82 year old male who presents here today for Chronic Medical Conditions. HTN: Patient is compliant with meds Yes Monitors bp at home: Yes. Denies side effects: Yes. Chest pain: No. Dyspnea: No. Edema: No. Palpitations: No. Syncope: No. Headache: No. Dizziness: No. HYPERLIPIDEMIA: Patient is taking medications: Yes. Patient is watching diet: Yes. Patient denies myalgias: Yes. Patient denies gi upset: Yes ED: Using cialis as needed. Depression Screening PHQ-2 Score 05/25/2023 0 Depression screening tool completed and reviewed. Based on score and interview, patient is not at risk for depression. Screening tool discussed with patient, and I recommended no further interventionat this time. Following with nephrology for stage 3 kidney disease. Following with urology for BPH. History of type 2 diabetes. On no medications. His Hgb A1c is well controlled with lifestyle control. Latest Hgb A1c was 6.1%. Following with hematology for MGUS. Just monitoring at this time. Taking protonix 40 mg for gerd. Given by ENT. Past medical history, appointments, medications, allergies reviewed. EXAM: BP 134/80 Pulse (!) 57 Resp 16 Wt 85.1 kg (187 lb 9.6 oz) SpO2 97% BMI 26.86 kg/m General Appearance: Well appearing, alert, in no acute distress, well-hydrated, well nourished. Lungs: Lungs clear to auscultation. No wheezing, rhonchi, rales.. Heart: RRR without murmur, gallop, or rubs. No ectopy. Component Latest Ref Rng & Units 05/17/2023 Protein, Total 6.3 - 8.0 g/dL 7.1 Albumin 3.9 - 4.9 g/dL 4.4 Calcium 8.5 - 10.2 mg/dL 10.2 Bilirubin, Total 0.2 - 1.3 mg/dL 0.9 Alkaline Phosphatase 38 - 113 U/L 55 AST 14 - 40 U/L 17 ALT 10 - 54 U/L 15 Glucose 74 - 99 mg/dL 119 (H) BUN 9 - 24 mg/dL 35 (H) Creatinine 0.73 - 1.22 mg/dL 1.55 (H) Sodium 136 - 144 mmol/L 140 Potassium 3.7 - 5.1 mmol/L 4.8 Chloride 97 - 105 mmol/L 107 (H) CO2 22 - 30 mmol/L 26 Anion Gap 9 - 18 mmol/L 7 (L) eGFR >=60 mL/min/1.73m 44 (L) Cholesterol, Total <200 mg/dL 150 Triglyceride <150 mg/dL 45 HDL Cholesterol >39 mg/dL 56 Non HDL Cholesterol <130 mg/dL 94 Fasting Time hrs 10 VLDL Cholesterol <30 mg/dL 9 TC:HDL Ratio <5.10 2.68 LDL Cholesterol <100 mg/dL 85 LDL:HDL Ratio <2.54 1.52 Creatinine, Ur Random (UCRR) 20.0 - 300.0 mg/dL 95.0 Albumin, Urine Random mg/L 33.0 Albumin/Creat Ratio <30 mg/g 35 (H) Hemoglobin A1C 4.3 - 5.6 % 6.1 (H) Estimated Average Glucose mg/dL 128 ASSESSMENT/PLAN: 1. Type 2 diabetes mellitus without complication, without long-term current use of insulin (HCC) - ICD9: 250.00, ICD10: E11.9 (primary diagnosis) - Controlled - Continue with lifestyle control - LIPID PANEL BASIC - COMP METABOLIC PANEL - HGB A1C 2. Stage 3b chronic kidney disease (HCC) - ICD9: 585.3, ICD10: N18.32 - Stable, continue following with nephrology as scheduled - COMP METABOLIC PANEL 3. Hyperlipidemia, unspecified hyperlipidemia type - ICD9: 272.4, ICD10: E78.5 - Controlled - Continue current medications - Counseled on healthy diet and regular exercise - LIPID PANEL BASIC 4. Essential hypertension, benign - ICD9: 401.1, ICD10: I10 - Controlled - Continue current medications - Recommend home blood pressure monitoring, to bring results to next visit - Encouraged sodium restriction, DASH or Mediterranean diet - Recommend regular aerobic exercise - COMP METABOLIC PANEL Rafael Ramirez APRN.CNP RTO in 6 months, sooner if needed. This note was partly generated using [employer] voice recognition dictation and may contain some misspelled or inaccurate words missed on review. documented in this encounterMartins Ferry Hospital02-16-2024 NoteHNO ID: [id number] Author: RAFAEL RAMIREZ APRN.CNP Service: ? Author Type: Nurse Practitioner Type: Progress Notes Filed: 05/25/2023 13:23 Note Text: Chief Complaint Patient presents with: F/U 6 Month HPI Qian Pink is a 82 year old male who presents here today for Chronic Medical Conditions. HTN: Patient is compliant with meds Yes Monitors bp at home: Yes. Denies side effects: Yes. Chest pain: No. Dyspnea: No. Edema: No. Palpitations: No. Syncope: No. Headache: No. Dizziness: No. HYPERLIPIDEMIA: Patient is taking medications: Yes. Patient is watching diet: Yes. Patient denies myalgias: Yes. Patient denies gi upset: Yes ED: Using cialis as needed. Depression Screening PHQ-2 Score 05/25/2023 0 Depression screening tool completed and reviewed. Based on score and interview, patient is not at risk for depression. Screening tool discussed with patient, and I recommended no further intervention at this time. Following with nephrology for stage 3 kidney disease. Following with urology for BPH. History of type 2 diabetes. On no medications. His Hgb A1c is well controlled with lifestyle control. Latest Hgb A1c was 6.1%. Following with hematology for MGUS. Just monitoring at this time. Taking protonix 40 mg for gerd. Given by ENT. Past medical history, appointments, medications, allergies reviewed. EXAM: BP 134/80 Pulse (!) 57 Resp 16 Wt 85.1 kg (187 lb 9.6 oz) SpO2 97% BMI 26.86 kg/m? General Appearance: Well appearing, alert, in no acute distress, well-hydrated, well nourished. Lungs: Lungs clear to auscultation. No wheezing, rhonchi, rales.. Heart: RRR without murmur, gallop, or rubs. No ectopy. Component Latest Ref Rng AND Units 05/17/2023 Protein, Total 6.3 - 8.0 g/dL 7.1 Albumin 3.9 - 4.9 g/dL 4.4 Calcium 8.5 - 10.2 mg/dL 10.2 Bilirubin, Total 0.2 - 1.3 mg/dL 0.9 Alkaline Phosphatase 38 - 113 U/L 55 AST 14 - 40 U/L 17 ALT 10 - 54 U/L 15 Glucose 74 - 99 mg/dL 119 (H) BUN 9 - 24 mg/dL 35 (H) Creatinine 0.73 - 1.22 mg/dL 1.55 (H) Sodium 136 - 144 mmol/L 140 Potassium 3.7 - 5.1 mmol/L 4.8 Chloride 97 - 105 mmol/L 107 (H) CO2 22 - 30 mmol/L 26 Anion Gap 9 - 18 mmol/L 7 (L) eGFR >=60 mL/min/1.73mA? 44 (L) Cholesterol, Total <200 mg/dL 150 Triglyceride <150 mg/dL 45 HDL Cholesterol >39 mg/dL 56 Non HDL Cholesterol <130 mg/dL 94 Fasting Time hrs 10 VLDL Cholesterol <30 mg/dL 9 TC:HDL Ratio <5.10 2.68 LDL Cholesterol <100 mg/dL 85 LDL:HDL Ratio <2.54 1.52 Creatinine, Ur Random (UCRR) 20.0 - 300.0 mg/dL 95.0 Albumin, Urine Random mg/L 33.0 Albumin/Creat Ratio <30 mg/g 35 (H) Hemoglobin A1C 4.3 - 5.6 % 6.1 (H) Estimated Average Glucose mg/dL 128 ASSESSMENT/PLAN: 1. Type 2 diabetes mellitus without complication, without long-term current use of insulin (HCC) - ICD9: 250.00, ICD10: E11.9 (primary diagnosis) - Controlled - Continue with lifestyle control - LIPID PANEL BASIC - COMP METABOLIC PANEL - HGB A1C 2. Stage 3b chronic kidney disease (HCC) - ICD9: 585.3, ICD10: N18.32 - Stable, continue following with nephrology as scheduled - COMP METABOLIC PANEL 3. Hyperlipidemia, unspecified hyperlipidemia type - ICD9: 272.4, ICD10: E78.5 - Controlled - Continue current medications - Counseled on healthy diet and regular exercise - LIPID PANEL BASIC 4. Essential hypertension, benign - ICD9: 401.1, ICD10: I10 - Controlled - Continue current medications - Recommend home blood pressure monitoring, to bring results to next visit - Encouraged sodium restriction, DASH or Mediterranean diet - Recommend regular aerobic exercise - COMP METABOLIC PANEL Rafael Ramirez APRN.DATA ANALYTICS ANALYST RTO in 6 months, sooner if needed. This note was partly generated using [employer] voice recognition dictation and may contain some misspelled or inaccurate words missed on review.[facility]02-16-2024 Evaluation note* Diagnosis Type 2 diabetes 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, without long-term current use of insulin, unspecified whether stage 3a or 3b CKD (HCC)- Primary Stage 3b chronic kidney disease (HCC) Hyperlipidemia, unspecified hyperlipidemia type Essential hypertension, benign Gastroesophageal reflux disease without esophagitis Esophageal reflux documented in this encounter [facility]02-14-2024 Evaluation note* Diagnosis Stage 3 chronic kidney disease, unspecified whether stage 3a or 3b CKD (HCC)- Primary documented in this encounter [facility]11-09-2023 NoteHNO ID: [id number] Author: Janusz Davenport MD Service: ? Author Type: Physician Type: Progress Notes Filed: 04/11/2023 9:00 PM Note Text: [facility] UROLOGY ESTABLISHED PATIENT CLINIC NOTE UROL [facility] PATIENT INFO: Qian Pink 82 year old PCP: Jenae Savage MD IMPRESSION/PLAN: 1. Benign prostatic hyperplasia without lower urinary tract symptoms - ICD9: 600.00, ICD10: N40.0 (primary diagnosis) -Patient remains stable without any significant complaints. Patient currently taking doxazosin for BP control but this can also be beneficial for BPH. 2. Microscopic hematuria - ICD9: 599.72, ICD10: R31.29 -Send urine for microscopy 3. Screening for genitourinary condition - ICD9: V81.6, ICD10: Z13.89 REASON FOR VISIT: Follow-up HPI: Qian Pink returns for continuing evaluation and management. This is a very pleasant 82-year-old, accompanied by his , who presents for chronic care management of his BPH. Patient underwent TURP in September 2012 and has been doing fairly well ever since. No longer taking any oral medication. Also has a history of benign bilateral renal cysts. Recent ultrasound showed no significant change, stable bilateral renal cysts were noted. INTERNATIONAL PROSTATE SYMPTOM SCORE (I-PSS) 1)INCOMPLETE EMPTYING Over the past month, how often have you had a sensation of 0- Not at allnot emptying your bladder completely after you finished urinating? SCORE: 2)FREQUENCY Over the past month, how often have you had to urinate again less than two hours after you finished urinating? SCORE: 0- Not at all 3)INTERMITTENCY Over the past month, how often have you found you stopped and started again several times when you urinated? SCORE: 0- Not at all 4)URGENCY Over the past month, how often have you found it difficult to postpone urination? SCORE: 0- Not at all 5)WEAK STREAM Over the past month, how often have you had a weak stream? SCORE: 1- Less than 1 time in 5 6)STRAINING Over the past month, how often have you had to push or strain to begin urination SCORE: 0- Not at all 7)NOCTURIA Over the past month, how many times did you most typically get up to urinate from the time you went to bed at night until the time you get up in the morning? SCORE:0 TOTAL I-PSS SCORE: 1 QUALITY OF LIFE DUE TO URINARY SYMPTOMS If you were to spend the rest of yur life with your urinary condition just the way it is now, how would you feel about that? 1- Pleased UROLOGICAL DATA: Urinalysis: GLUCOSE UA (POCT) Negative 02/15/2023 BILIRUBIN UA (POCT) Negative 02/15/2023 KETONE UA (POCT) Negative 02/15/2023 SPECIFIC GRAVITY UA (POCT) 1.015 02/15/2023 HEMOGLOBIN/BLOOD UA (POCT) Value: Trace-intact 02/15/2023 PH UA (POCT) 5.5 02/15/2023 PROTEIN UA (POCT) Negative 02/15/2023 UROBILINOGEN UA (POCT) 0.2 02/15/2023 NITRITE UA (POCT) Negative 02/15/2023 LEUKOCYTES UA (POCT) Negative 02/15/2023 COLOR UA (POCT) Yellow 02/15/2023 CLARITY UA (POCT) Clear 02/15/2023 Post Void Residual, Ultrasound: 119 cc, empties fairly well OTHER DATA: PSA (ng/mL) Date Value 05/31/2020 4.11 04/10/2017 6.07 03/10/2016 2.29 05/17/2015 2.18 PSA, Percent Free (%) Date Value 05/31/2020 42 05/17/2015 41 09/28/2014 43 05/15/2014 21 No results found for: ISOPSA Creatinine Date Value Ref Range Status 11/24/2022 1.66 (H) 0.73 - 1.22 mg/dL Final 11/01/2022 1.62 (H) 0.73 - 1.22 mg/dL Final 05/20/2022 1.49 (H) 0.73 - 1.22 mg/dL Final 04/17/2022 1.63 (H) 0.73 - 1.22 mg/dL Final No results found for: TESTOST , TESTFREE PMHx/PSHx: see above, otherwise unchanged Rx: reviewed and unchanged ROS: see above, otherwise unchanged Labs: None Imaging: IMPRESSION: Multiple, bilateral renal cysts. Overall no significant change allowing for the difference in technique and patient positioning. Campus Rep: MANOJ Transcribe Date/Time: Jan 14 2023 4:00P Dictated by : CUBA JADE MD This examination was interpreted and the report reviewed and electronically signed by: CUBA JADE MD on Jan 14 2023 4:03PM EST Results-Findings * * *Final Report* * * DATE OF EXAM: Jan 11 2023 2:14PM [facility] 1055 - US KIDNEY/BLADDER / PROCEDURE REASON: Congenital multiple renal cysts * * * * Physician Interpretation * * * * EXAMINATION: RENAL ULTRASOUND CLINICAL HISTORY: Congenital multiple renal cysts TECHNIQUE: Sonography of the kidneys and urinary bladder was performed. Images were obtained and stored in a permanent archive. MQ: UR_1 COMPARISON: 01/02/2022 RESULT: Right Kidney: -Renal length: 14.6 cm -Parenchyma: Normal parenchymal echogenicity. Normal parenchymal thickness. -Collecting system: No hydronephrosis. -Calculus: No echogenic, shadowing calculus. -Lesion: An avascular, anechoic, well circumscribed lesion measuring 10.1 x 10.1 x 9.8 cm (previous measurement 10.9 x 8.9 x 10.5 c (more content not included)...[facility]10-05-2023 History of Present illness Narrative* Ana Lilia Guaman RDMS - 01/11/2023 1:45 PM EDT Radiology Service Progress Note PATIENT NAME: Qian Pink DATE OF SERVICE: January 11, 2023 TIME: 3:54 PM PATIENT IDENTITY VERIFICATION COMPLETED USING TWO (2) IDENTIFIERS: Name and Date of confirmedby patient verbally. FALL SCREENING: Has the patient had 2 falls in the last year or 1 fall with injury or currently using an Ambulatory Assistive Device (Walker, Cane, Wheelchair, Crutches, etc.)? No PATIENT GENDER DATA: Male PATIENT RELEVANT IMPLANT DATA REVIEWED: Not Applicable RADIOLOGY DEPARTMENT: Ultrasound PERIPHERAL IV DATA: Not applicable SIGNED BY: Ana Lilia Guaman RDMS RVT January 11, 2023 3:54 PM documented in [facility] History of Present illness Narrative* Gary Kelly, DO - 12/05/2022 11:41 AM EDT HPI: The patient is a 81-year-old gentleman with a past medical history significant for hypertension, hyperlipidemia, first-degree AV block, colon polyps, BPH, CKD stage III, type 2 diabetes, 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 No MS pain. No symptoms of sensory neuropathy. PAST MEDICAL HISTORY Diagnosis Date Benign neoplasm of colon Bronchitis Diabetes mellitus, type 2 (HCC) diet controlled Diverticulosis of small intestine (without mention of hemorrhage) First degree atrioventricular block Hypertensive kidney disease, benign Internal hemorrhoids without mention of complication Pure hypercholesterolemia Sinusitis SVT (supraventricular tachycardia) (HCC) Syncope PAST SURGICAL HISTORY Procedure Laterality Date COLONOSCOPY FLX DX W/COLLJ SPEC WHEN PFRMD 03/18/2001 Colonoscopy COLONOSCOPY FLX DX W/COLLJ SPEC WHEN PFRMD 10/24/12 Colonoscopy COLONOSCOPY W/BIOPSY SINGLE/MULTIPLE 04/24/2006 CYSTOURETHROSCOPY 08/21/2002 Cystoscopy; Dr. Ortiz Meza. ECHOCARDIOGRAM 05/23/2018 normal LV systolic fxn; LVEF 65%; stage I diastolic dysfxn; no substantial valvular abnormalities LAPAROSCOPY SURG CHOLECYSTECTOMY Cholecystectomy, lap STRESS TEST EXERCISE-NUCLEAR 05/24/2018 Barrie protocol 8 min 46 sec; 104% MPHR; 10.1 METs; narrow complex tachycardia in late peak and early recovery stages, 140s bpm TRURL ELECTROSURG RESCJ PROSTATE BLEED COMPLETE 10/2012 TURP ALLERGIES Allergen Reactions Lisinopril Intolerance Victoriano Cough Current Outpatient Medications Medication Sig pantoprazole DR (PROTONIX) 40 mg tablet Take 1 tablet by mouth once daily. losartan (COZAAR) 50 mg tablet Take 1 tablet by mouth every afternoon. Tadalafil (CIALIS) 20 mg tab(s) Take 1 tablet by mouth as needed. Take 30-60 minutes prior to sexual activity cetirizine (ZYRTEC) 10 mg tablet Take 1 tablet by mouth once daily. fluticasone (FLONASE) 50 mcg/actuation nasal spray Use 2 Sprays in each nostril once daily. Rinse mouth after use. doxazosin (CARDURA) 2 mg tablet Take 1 tablet by mouth daily at bedtime. simvastatin (ZOCOR) 20 mg tablet Take 1 tablet by mouth daily at bedtime. amLODIPine (NORVASC) 10 mg tablet Take 1 tablet by mouth once daily. ergocalciferol, vitamin D2, (VITAMIN D2 ORAL) Take 2 capsules by mouth once daily. Aspirin 81 mg Tab Take 81 mg by mouth once daily. MULTIVITAMIN TAB Take one(1) tablet daily. No current facility-administered medications for this visit. Social History Tobacco Use Smoking status: Former Packs/day: 0.50 Years: 10.00 Additional pack years: 0.00 Total pack years: 5.00 Types: Cigarettes Start date: 1968 Quit date: 1978 Years since quittin.6 Smokeless tobacco: Never Tobacco comments: quit 50 years ago Vaping Use Vaping Use: Never used Substance Use Topics Alcohol use: No Drug use: No Family History Problem Relation Age of Onset Stroke Mother dm Hypertension Mother Diabetes Mother Heart disease Mother Heart Father dm Heart disease Father Diabetes Father Diabetes Sister Diabetes Sister Heart Brother dm Diabetes Brother other (brain cancer) Brother dm Social History Tobacco Use Smoking status: Former Packs/day: 0.50 Years: 10.00 Additional pack years: 0.00 Total pack years: 5.00 Types: Cigarettes Start date: 1968 Quit date: 1978 Years since quittin.6 Smokeless tobacco: Never Tobacco comments: quit 50 years ago Vaping Use Vaping Use: Never used Substance Use Topics Alcohol use: No Drug use: No Family History Problem Relation Age of Onset Stroke Mother dm Hypertension Mother Diabetes Mother Heart disease Mother Heart Father dm Heart disease Father Diabetes Father Diabetes Sister Diabetes Sister Heart Brother dm Diabetes Brother other (brain cancer) Brother dm PHYSICAL EXAM: Vitals: Blood pressure 149/70, pulse 60, temperature 36.9 C (98.4 F), height 178 cm (5' 10.08 ), weight 85 kg (187 lb 8 oz), SpO2 98 %. Well-appearing and in no acute distress. EYES: Sclerae are anicteric bilaterally. LYMPHATIC: There is no palpable cervical, supraclavicular adenopathy. RESPIRATORY: Inspiratory breath sounds are of normal intensity in all [place]. No rales, wheezes or rhonchi. CARDIOVASCULAR: Rhythm is regular. ABDOMEN: The abdomen is nondistended. No splenomegaly or hepatomegaly. No tenderness. SKIN: No jaundice. LABS: Component Latest Ref Rng & Units 11/24/2022 WBC 3.70 - 11.00 k/uL 6.10 RBC 4.20 - 6.00 m/uL 5.10 Hemoglobin 13.0 - 17.0 g/dL 14.3 Hematocrit 39.0 - 51.0 % 44.7 MCV 80.0 - 100.0 fL 87.6 MCH 26.0 - 34.0 pg 28.0 MCHC 30.5 - 36.0 g/dL 32.0 RDW-CV 11.5 - 15.0 % 13.8 Platelet Count 150 - 400 k/uL 185 MPV 9.0 - 12.7 fL 10.5 Neut% % 70.0 Abs Neut (ANC) 1.45 - 7.50 k/uL 4.27 Lymph% % 15.4 Abs Lymph 1.00 - 4.00 k/uL 0.94 (L) [place]% % 9.[address] [place] <0.87 k/uL 0.55 Eosin% % 4.8 Abs Eosin <0.46 k/uL 0.29 Baso% % 0.5 Abs Baso <0.11 k/uL 0.03 Immature Gran % % 0.3 IMMATURE GRANS (ABS) <0.10 k/uL <0.03 NRBC /100 WBC 0.0 Absolute nRBC <0.01 k/uL <0.01 DTYPE Auto Protein, Total 6.3 - 8.0 g/dL 6.7 Albumin 3.9 - 4.9 g/dL 4.3 Calcium 8.5 - 10.2 mg/dL 9.5 Bilirubin, Total 0.2 - 1.3 mg/dL 1.0 Alkaline Phosphatase 38 - 113 U/L 50 AST 14 - 40 U/L 19 ALT 10 - 54 U/L 16 Glucose 74 - 99 mg/dL 103 (H) BUN 9 - 24 mg/dL 34 (H) Creatinine 0.73 - 1.22 mg/dL 1.66 (H) Sodium 136 - 144 mmol/L 139 Potassium 3.7 - 5.1 mmol/L 4.4 Chloride 97 - 105 mmol/L 107 (H) CO2 22 - 30 mmol/L 23 Anion Gap 9 - 18 mmol/L 9 eGFR >=60 mL/min/1.73m 41 (L) ASSESSMENT/PLAN: (D47.2) MGUS (monoclonal gammopathy of unknown significance) (primary encounter diagnosis) Assessment: -Low-level IgG kappa MGUS. -Previous kappa and lambda light chains elevated but ratio normal. 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 No bland proteinuria. -Discussed obtaining 24-hour urine collection for electrophoresis and immunofixation. Plan: -24 hour urine for electrophoresis and immunofixation. If positive will talk with nephrology about opinion on renal biopsy. Portions of this documentation were copied and pasted from previous office visit notes in order to provide a cohesive continuity of the history. The note has been reviewed and edited and updated as necessary. I spent a total of 30 minutes on the date of the service which included preparing to see the patient, [id number] patient care, completing clinical documentation, obtaining and/or reviewing separately obtained history, performing a medically appropriate examination, counseling and educating the pat ient/family/caregiver, ordering medications, tests, or procedures, communicating with other HCPs (not separately reported), and communicating results to the patient/family/caregiver. Gary Kelly DO documented in this encounter[facility]08-[facility] History of Present illness Narrative* Rafael Ramirez APRN.DATA ANALYTICS ANALYST - 11/24/2022 2:00 PM EDT Chief Complaint Patient presents with: F/U 6 Month HPI Qian Pink is a 81 year old male who presents here today for Chronic Medical Conditions. Taking medication as prescribed. No side effects No CP, SOB, Syncope. Following with Dr. Weldon and Dr. Julio Past medical history, appointments, medications, allergies reviewed. EXAM: BP 118/68 Pulse (!) 56 Resp 16 Wt 85.8 kg (189 lb 3.2 oz) SpO2 97% BMI 27.16 kg/m General Appearance: Well appearing, alert, in no acute distress, well-hydrated, well nourished.. Lungs: Lungs clear to auscultation. No wheezing, rhonchi, rales.. Heart: RRR without murmur, gallop, or rubs. No ectopy. Component Latest Ref Rng & Units 11/01/2022 Protein, Total 6.3 - 8.0 g/dL 6.8 Albumin 3.9 - 4.9 g/dL 4.3 Calcium 8.5 - 10.2 mg/dL 9.7 Bilirubin, Total 0.2 - 1.3 mg/dL 1.1 Alkaline Phosphatase 38 - 113 U/L 47 AST 14 - 40 U/L 16 ALT 10 - 54 U/L 15 Glucose 74 - 99 mg/dL 113 (H) BUN 9 - 24 mg/dL 37 (H) Creatinine 0.73 - 1.22 mg/dL 1.62 (H) Sodium 136 - 144 mmol/L 142 Potassium 3.7 - 5.1 mmol/L 4.5 Chloride 97 - 105 mmol/L 107 (H) CO2 22 - 30 mmol/L 23 Anion Gap 9 - 18 mmol/L 12 eGFR >=60 mL/min/1.73m 42 (L) Color Yellow Light Yellow Clarity Clear Clear Glucose, Urine Trace, Negative Negative Bilirubin, Urine Negative Negative Ketones, Urine Trace, Negative Negative Specific [place], Ur 1.005 - 1.030 1.017 Hemoglobin/Blood,Ur Negative, Trace Negative pH, Urine 5.0 - 8.0 7.0 Protein, Urine Trace, Negative Negative Urobilinogen Negative Negative Nitrites Negative Negative Leukest Negative, 25 Debra/uL Negative WBC, Urine 0-5 /HPF 0-5 /HPF RBC, Urine 0-3 /HPF 0-3 /HPF Epithelial Cells /HPF Few WBC 3.70 - 11.00 k/uL 4.76 RBC 4.20 - 6.00 m/uL 5.23 Hemoglobin 13.0 - 17.0 g/dL 14.5 Hematocrit 39.0 - 51.0 % 46.9 MCV 80.0 - 100.0 fL 89.7 MCH 26.0 - 34.0 pg 27.7 MCHC 30.5 - 36.0 g/dL 30.9 RDW-CV 11.5 - 15.0 % 13.8 Platelet Count 150 - 400 k/uL 169 MPV 9.0 - 12.7 fL 10.8 Absolute nRBC <0.01 k/uL <0.01 Protein, Urine Random 0 - 20 mg/dL 5 Creatinine, Ur Random (UCRR) 20.0 - 300.0 mg/dL 67.7 Protein/Creat Ratio <0.15 mg/mg 0.07 Hemoglobin A1C 4.3 - 5.6 % 6.1 (H) Estimated Average Glucose mg/dL 128 Phosphorus 2.7 - 4.8 mg/dL 2.8 ASSESSMENT/PLAN: 1. Type 2 diabetes mellitus without complication, without long-term current use of insulin (HCC) - ICD9: 250.00, ICD10: E11.9 (primary diagnosis) - Controlled - Continue with lifestyle - HGB A1C - COMP METABOLIC PANEL - ALBUMIN/CREAT RATIO RND UR 2. Stage 3b chronic kidney disease (HCC) - ICD9: 585.3, ICD10: N18.32 - Stable, continue to monitor - COMP METABOLIC PANEL 3. Hyperlipidemia, unspecified hyperlipidemia type - ICD9: 272.4, ICD10: E78.5 - Controlled - Continue current medications - Counseled on healthy diet and regular exercise - LIPID PANEL BASIC 4. Essential hypertension, benign - ICD9: 401.1, ICD10: I10 - Controlled - Continue current medications - Recommend home blood pressure monitoring, to bring results to next visit - Encouraged sodium restriction, DASH or Mediterranean diet - Recommend regular aerobic exercise 5. ED (erectile dysfunction) of organic origin - ICD9: 607.84, ICD10: N52.9 - Stable - TADALAFIL 20 MG TABLET Rafael Ramirez APRN.MAGALY RTO in 6 months, sooner if needed. This note was partly generated using [employer] voice recognition dictation and may contain some misspelled or inaccurate words missed on review. documented in this encounterMart[facility]06-13-2023 Miscellaneous Notes* Telephone Encounter - Rissa White LPN - 09/19/2022 10:58 AM EDT Patient Suzanne returned call and went over results, notes from Elizabeth Avila FAMILY SUPPORT SPECIALIST with understanding with present also. said no heartburn or cough after meals, coughing worse in the evening. * Telephone Encounter - CHRISTIAN Núñez - 09/19/2022 10:00 AM EDT TC to patient with no answer. Left VM to return call to office to receive results. CHRISTIAN Núñez * Telephone Encounter - Elizabeth Avila APRN.CNP - 09/19/2022 9:48 AM EDT Can you please call the patient and and let them know that his chest x-ray was normal. No pneumonia was seen. I would recommend that he continue taking his daily allergy medication along with Flonase. He couldtry a decongestant to help dry up the sinuses. Can you ask if he has been having any heartburn symptoms or increase in cough after meals? Thank you. Elizabeth Avila APRN.CNP documented in this encounterMartins Ferry [facility]06-12-2023 History of Present illness Narrative* Mercy Phelps RT(R) - 09/18/2022 1:20 PM EDT Radiology Service Progress Note PATIENT NAME: Qian Pink DATE OF SERVICE: September 18, 2022 TIME: 1:12 PM PATIENT IDENTITY VERIFICATION COMPLETED USING TWO (2) IDENTIFIERS: Name and Date of confirmedby patient verbally. FALL SCREENING: Has the patient had 2 falls in the last year or 1 fall with injury or currently using an Ambulatory Assistive Device (Walker, Cane, Wheelchair, Crutches, etc.)? No PATIENT GENDER DATA: Male PATIENT RELEVANT IMPLANT DATA REVIEWED: Yes RADIOLOGY DEPARTMENT: General X-ray: Exam(s) Completed: Chest X-Ray PERIPHERAL IV DATA: Not applicable SIGNED BY: RT Walt(R) September 18, 2022 1:12 PM documented in this encounterMartins Ferry [facility]06-01-2023 Instructions* Patient Instructions* Nataly Schmitt - 09/07/2022 9:55 AM EDT Start taking zyrtec daily Increase flonase to two times daily for 10 days Return with worsening symptoms documented in this encounterMart[facility]06-01-2023 History of Present illness Narrative* Elizabeth Avila APRN.MAGALY - 09/07/2022 9:40 AM EDT This is a 81 year old male who presents today with: Patient presents with: Acute Visit: ?cold or sinus sx HISTORY OF PRESENT ILLNESS: Qian Pink is a 81 year old male. Patient presents with: Acute Visit: ?cold or sinus sx Ongoing cold symptoms for the past 3 weeks. Denies SOB, fevers, fatigue, sinus pressure, CASILLAS, ear pain- refers muffled hearing Productive cough with white sputum- concerned for pneumonia Post nasal drip for 3 weeks Using flonase daily for 2 weeks PAST MEDICAL HISTORY: PAST MEDICAL HISTORY Diagnosis Date Benign neoplasm of colon Bronchitis Diabetes mellitus, type 2 (HCC) diet controlled Diverticulosis of small intestine (without mention of hemorrhage) First degree atrioventricular block Hypertensive kidney disease, benign Internal hemorrhoids without mention of complication Pure hypercholesterolemia Sinusitis SVT (supraventricular tachycardia) (HCC) Syncope PAST SURGICAL HISTORY Procedure Laterality Date COLONOSCOPY FLX DX W/COLLJ SPEC WHEN PFRMD 03/18/2001 Colonoscopy COLONOSCOPY FLX DX W/COLLJ SPEC WHEN PFRMD 10/24/12 Colonoscopy COLONOSCOPY W/BIOPSY SINGLE/MULTIPLE 04/24/2006 CYSTOURETHROSCOPY 08/21/2002 Cystoscopy; Dr. Ortiz Meza. ECHOCARDIOGRAM 05/23/2018 normal LV systolic fxn; LVEF 65%; stage I diastolic dysfxn; no substantial valvular abnormalities LAPAROSCOPY SURG CHOLECYSTECTOMY Cholecystectomy, lap STRESS TEST EXERCISE-NUCLEAR 05/24/2018 [facility]rie protocol 8 min 46 sec; 104% MPHR; 10.1 METs; narrow complex tachycardia in late peak and early recovery stages, 140s bpm TRURL ELECTROSURG RESCJ PROSTATE BLEED COMPLETE 10/2012 TURP ALLERGIES Patient has no known allergies. MEDICATIONS Current Outpatient Medications Medication Sig doxazosin (CARDURA) 2 mg tablet Take 1 tablet by mouth daily at bedtime. simvastatin (ZOCOR) 20 mg tablet Take 1 tablet by mouth daily at bedtime. cimetidine (TAGAMET) 400 mg tablet Take 400 mg by mouth once daily. amLODIPine (NORVASC) 10 mg tablet Take 1 tablet by mouth once daily. ergocalciferol, vitamin D2, (VITAMIN D2 ORAL) Take by mouth. lisinopril (ZESTRIL) 40 mg tablet Take 1 tablet by mouth once daily. Aspirin 81 mg Tab Take 81 mg by mouth once daily. MULTIVITAMIN TAB Take one(1) tablet daily. No current facility-administered medications for this visit. FAMILY HISTORY Problem Relation Age of Onset Stroke Mother dm Hypertension Mother Diabetes Mother Heart disease Mother Heart Father dm Heart disease Father Diabetes Father Diabetes Sister Diabetes Sister Heart Brother dm Diabetes Brother other (brain cancer) Brother dm Social History Tobacco Use Smoking status: Former Packs/day: 0.50 Years: 10.00 Pack years: 5.00 Types: Cigarettes Start date: 1968 Quit date: 1978 Years since quittin.4 Smokeless tobacco: Never Tobacco comments: quit 50 years ago Vaping Use Vaping Use: Never used Substance Use Topics Alcohol use: No Drug use: No EXAM: BP 134/60 Pulse 63 Resp 16 Wt 83.5 kg (184 lb) SpO2 96% BMI 26.42 kg/m PHYSICAL EXAM: General Appearance: Well appearing, alert, in no acute distress, well-hydrated, well nourished. Skin: Skin color, texture, turgor normal, no suspicious rashes or lesions. Head: Normocephalic, no masses, lesions, tenderness or abnormalities. Eyes: Anicteric sclera. Extraocular movements are intact. Ears: External ears normal, canals clear, Positive findings: R TM: dull, L TM: dull. Nose/Sinuses: Nares normal, septum midline, mucosa normal, no drainage or sinus tenderness. Oropharynx: Positive findings: mild oropharyngeal erythema. Neck: Supple, no adenopathy; thyroid symmetric, normal size, no bruits. Lungs: Lungs clear to auscultation. No wheezing, rhonchi, rales. Heart: RRR without murmur, gallop, or rubs. No ectopy. Neurologic: Gait normal. ASSESSMENT/PLAN: 1. Seasonal allergies - ICD9: 477.9, ICD10: J30.2 - Start daily Zyrtec - Increase Flonase to twice a day - Use humidifier at night Follow-up as needed or sooner if symptoms get worse or do not improve. Discussed treatment plan and patient voices understanding. Patient's questions answered appropriately. Medications and potential side effects were discussed and patient voices understanding. Elizabeth Avila APRN.CNP This note was partially generated using [employer] voice recognition system. Note was reviewed for accuracy. There may be minor misspellings or grammar miscues with [employer] voice recognition. documented in this encounterMartins Ferry Hospital05-30-2023 Miscellaneous Notes* Telephone Encounter - Nel Stokes Ma - 09/05/2022 8:40 AM EDT Pt scheduled with elizabeth Avila on 09/07/22 at 9:40 AM. Pt notified via Vaxim[employer]. Nel Stokes Ma documented in this encounterMartins Ferry Hospital02-17-2023 History of Present illness Narrative* Rafael Ramirez APRN.CNP - 05/26/2022 1:40 PM EST Chief Complaint Patient presents with: F/U 6 Month HPI Qian Pink is a 81 year old male who presents here today for Chronic Medical Conditions. follow up for HTN, Lipid, DM. Following with nephrology for CKD Stage 3b. Following with urology for BPH.Hgb A1c well controlled at 6.1%. Doing well overall. No ongoing complaints. Continues to be active. BP at home is borderline elevated. Today okay on recheck. Dr. Kelly's office did place patient on doxazosin 2 mg nightly due to elevated BP. Previously on HCTZ but was discontinued with CKD. Past medical history, appointments, medications, allergies reviewed. EXAM: BP 120/78 (BP Site: Left Arm) Pulse 61 Temp 36.6 C (97.8 F) (Left Tympanic) Resp 16 Wt 85.3kg (188 lb) SpO2 98% BMI 26.99 kg/m General Appearance: Well appearing, alert, in no acute distress, well-hydrated, well nourished.. Lungs: Lungs clear to auscultation. No wheezing, rhonchi, rales.. Heart: RRR without murmur, gallop, or rubs. No ectopy. Component Latest Ref Rng & Units 05/20/2022 Protein, Total 6.3 - 8.0 g/dL 7.2 Albumin 3.9 - 4.9 g/dL 4.3 Calcium 8.5 - 10.2 mg/dL 10.0 Bilirubin, Total 0.2 - 1.3 mg/dL 0.9 Alkaline Phosphatase 38 - 113 U/L 48 AST 14 - 40 U/L 21 ALT 10 - 54 U/L 19 Glucose 74 - 99 mg/dL 109 (H) BUN 9 - 24 mg/dL 36 (H) Creatinine 0.73 - 1.22 mg/dL 1.49 (H) Sodium 136 - 144 mmol/L 140 Potassium 3.7 - 5.1 mmol/L 4.9 Chloride 97 - 105 mmol/L 106 (H) CO2 22 - 30 mmol/L 22 Anion Gap 9 - 18 mmol/L 12 eGFR >=60 mL/min/1.73m 47 (L) Cholesterol, Total <200 mg/dL 149 Triglyceride <150 mg/dL 48 HDL Cholesterol >39 mg/dL 53 Non HDL Cholesterol <130 mg/dL 96 Fasting Time hrs 12 VLDL Cholesterol <30 mg/dL 10 TC:HDL Ratio <5.10 2.81 LDL Cholesterol <100 mg/dL 86 LDL:HDL Ratio <2.54 1.62 Hemoglobin A1C 4.3 - 5.6 % 6.1 (H) Estimated Average Glucose mg/dL 128 ASSESSMENT/PLAN: 1. Stage 3b chronic kidney disease (HCC) - ICD9: 585.3, ICD10: N18.32 (primary diagnosis) - eGFR: Stable - Recommend maintaining A1c < 7% - Recommend maintaining blood pressure under 130/80 2. Type 2 diabetes mellitus without complication, without long-term current use of insulin (HCC) - ICD9: 250.00, ICD10: E11.9 - Not on medications. Only lifestyle. Hgb A1c well controlled at 6.1%. - HGB A1C - COMP METABOLIC PANEL 3. Hyperlipidemia, unspecified hyperlipidemia type - ICD9: 272.4, ICD10: E78.5 - good control - Continue current medication. - Encouraged following a low fat, low cholesterol diet. - Discussed the benefits of regular aerobic exercise and weight loss. - SIMVASTATIN 20 MG TABLET 4. Essential hypertension, benign - ICD9: 401.1, ICD10: I10 - good control - Continue current medication(s) - Recommended regular aerobic exercise. - Recommend home blood pressure monitoring, to bring results in on next visit - Goal of BP <130/80 - COMP METABOLIC PANEL Rafael Ramirez APRN.CNP RTO in 6 months, sooner if needed. This note was partly generated using [employer] voice recognition dictation and may contain some misspelled or inaccurate words missed on review. documented in this encounterMartins Ferry Hospital01-27-2023 History of Present illness Narrative* Ángel Julio DO - 05/05/2022 10:40 AM EST [facility] SERVICE DATE: 05/05/2022 SERVICE TIME: 10:19 AM CHIEF COMPLAINT: Chronic kidney disease stage IIIb HPI: Mr. Pink is a 80 year old male with a PMHx of hypertension, diabetes mellitus, and hyperlipidemia who presents with chronic kidney disease stage IIIb. Chronic kidney disease stage IIIb etiology likely to obstructive uropathy, hypertensive nephrosclerosis, and non-proteinuric diabetic nephropathy. Established 08/08/2021 - Recommended urology follow up No recent issues. 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, tubular adenoma Essential Hypertension, Benign Type 2 Diabetes Mellitus Without Complication, Without Long-Term Current Use of Insulin (Hcc) Internal Hemorrhoids Without Mention of Complication Hyperlipidemia, Unspecified Urinary Retention With Incomplete Bladder Emptying Nonorganic Enuresis Renal Insufficiency Bph With Obstruction/Lower Urinary Tract Symptoms Renal Calcification Renal Cyst Ipmn (Intraductal Papillary Mucinous Neoplasm) First Degree Atrioventricular Block Syncope and Collapse Syncope Ckd (Chronic Kidney Disease) Stage 3, Gfr 30-59 Ml/Min ([facility]) MEDICATIONS: cimetidine (TAGAMET) 400 mg tablet Take 400 mg by mouth once daily. Tadalafil (CIALIS) 20 mg tab(s) Take 1 tablet by mouth as needed. Take 30-60 minutes prior to sexual activity Lactobac no.41/Bifidobact no.7 (PROBIOTIC-10 ORAL) Take by mouth. (Patient not taking: Reported on 03/08/2022) amLODIPine (NORVASC) 10 mg tablet Take 1 tablet by mouth once daily. triamcinolone acetonide (KENALOG) 0.1 % cream Apply 1 application to affected area three times daily. Apply sparingly to area for rash/itching. (Patient not taking: Reported on 03/08/2022) traZODone (DESYREL) 50 mg tablet Take 1 tablet by mouth daily at bedtime. Take as needed for insomnia (Patient not taking: Reported on 03/08/2022) ergocalciferol, vitamin D2, (VITAMIN D2 ORAL) Take by mouth. blood sugar diagnostic (BLOOD GLUCOSE TEST) test strip Test blood sugar(s) 1 times daily. Dx: Type 2 DM - Controlled E11.9 Insulin: No simvastatin (ZOCOR) 40 mg tablet Take 1 tablet by mouth daily at bedtime. lisinopril (ZESTRIL) 40 mg tablet Take 1 tablet by mouth once daily. Lancets lancets Test blood sugar(s) 1 times daily. Dx: Type 2 DM - Controlled E11.9 Insulin: No COMPOUNDED PRESCRIPTION Glucometer with test strips (whatever is covered by insurance) Dx: E11.9 Testing once per day Aspirin 81 mg Tab Take 81 mg by mouth once daily. MULTIVITAMIN TAB Take one(1) tablet daily. ALLERGIES: ALLERGIES No Known Allergies REVIEW OF SYSTEMS: Constitutional: No complaints Cardiovascular: No complaints Genitourinary: No complaints PHYSICAL EXAM: BP 149/65 Pulse (!) 58 Ht 177.7 cm (5' 9.98 ) Wt 84.8 kg (187 lb) BMI 26.85 kg/m Constitutional:No acute distress, Responsive, Normal habitus, and Well-nourished Neck:Trachea midline No jugular venous distension Cardiovascular:No peripheral edema Regular rate and ryhthm, normal S1 and S2, no murmurs, rubs, or gallops Respiratory:Normal respiratory effort. Lungs clear bilaterally. Abdomen:Soft, non-tender, non-distended. Normal bowel sounds. No hepatosplenomegaly. Psychiatric: Alert and oriented x self, place, time, and setting Normal mood/affect DATA: Diagnostic tests reviewed for today's visit: Glucose (mg/dL) Date Value 04/17/2022 91 05/21/2021 137 Potassium (mmol/L) Date Value 04/17/2022 4.8 05/21/2021 4.9 Sodium (mmol/L) Date Value 04/17/2022 141 05/21/2021 139 Chloride (mmol/L) Date Value 04/17/2022 106 05/21/2021 102 CO2 (mmol/L) Date Value 04/17/2022 25 05/21/2021 25 Creatinine (mg/dL) Date Value 04/17/2022 1.63 05/21/2021 1.82 BUN (mg/dL) Date Value 04/17/2022 35 05/21/2021 50 Anion Gap (mmol/L) Date Value 04/17/2022 10 05/21/2021 12 Calcium (mg/dL) Date Value 05/21/2021 10.4 Calcium, Total (mg/dL) Date Value 04/17/2022 9.6 Protein, Total (g/dL) Date Value 02/28/2022 6.9 02/28/2022 6.8 05/21/2021 6.4 Albumin (g/dL) Date Value 04/17/2022 4.2 05/21/2021 3.9 Bilirubin, Total (mg/dL) Date Value 02/28/2022 0.8 05/21/2021 0.6 Alkaline Phosphatase (U/L) Date Value 02/28/2022 53 05/21/2021 167 AST (U/L) Date Value 02/28/2022 16 05/21/2021 58 ALT (U/L) Date Value 02/28/2022 17 05/21/2021 120 Recent Labs 02/28/22 1310 08/08/21 1241 COLOR Yellow Light Yellow CLARITY Clear Clear UGLUC Negative Negative UBILI Negative Negative UKET Negative Negative SPGR 1.023 1.010 UHB Negative Negative UPH 6.0 6.0 UPROT Negative Negative NITRITES Negative Negative LEUKEST Negative Negative UWBC 0-5 /HPF 0-5 /HPF URBC 0-3 /HPF 0-3 /HPF ASSESSMENT: Mr. Pink is a 80 year old male with a PMHx of hypertension, diabetes mellitus, and hyperlipidemiawho presents with chronic kidney disease stage IIIb. Chronic kidney disease stage IIIb - Etiology likely to obstructive uropathy, hypertensive nephrosclerosis, and perhaps non-proteinuric diabetic nephropathy. - Last urology appointment in 01/05/2021 - PVR 158 and then 89 when rescanned Normal renal function 2012 AUDI 08/20/2012. Renal function returned to baseline. Acute urinary retention. TURP 09/2012 with mild AUDI. Renal function steadily declining since 2019 - ACR negative - US kidney/bladder with increased renal echogenicity and a nodular enlarged prostate gland that invaginates into the bladder lumen which demonstrates wall trabeculation 2. Anemia of renal disease - Hemoglobin at goal 3. Secondary hyperparathyroidism - Will check PTH/Vit D 4. Primary hypertension - Good control on current medications Hypertension regimen: - Norvasc 5 mg daily - Lisinopril 40 mg daily 5. Hyperlipidemia - Statin 6. DMII: Well controlled diabetes since 2013 7. BPH - Yearly follow ups with urology 8. MGUS - Following with hematology. Will repeat labs and can follow up as needed if unchanged PLAN: - Continue current medications - Renal labs every 6 months - Follow up in 12 months SIGNATURE: Ángel Julio DO PATIENT NAME: Qian Pink DATE: May 04, 2022 TIME: 10:16 AM OFFICE NUMBER: [phone] CC: PRIMARY CARE PHYSICIAN: Jenae Savage MD documented in this encounterMartins Ferry Hospital01-27-2023 Instructions* Patient Instructions* Ángel Julio DO - 05/05/2022 10:14 AM EST Your renal disease is likely obstructive uropathy, hypertensive nephrosclerosis, and perhaps non-proteinuric diabetic nephropathy. Avoid Advil, Motrin (Ibuprofen), Aleve (Naproxen), Mobic (Meloxicam), Voltaren (Diclofenac) and other pain/arthritis medications called NSAIDS. Tylenol or topical voltaren gel if necessary for pain Lab work every 6 months Follow up with Dr. Julio in 12 months. General nephrology recommendations: o Tight glycemic control with A1C < 7.0 o Treat proteinuria with goal urine protein excretion < 500mg/dl o Treat metabolic acidosis and keep serum bicarbonate (CO2) > 20 o Keep serum phosphorus between 3.5-5.5mg/dl o Treat hyperlipidemia with Goal LDL <100mg/dl o Maintain a 2 gram sodium restricted diet o Avoid all nephrotoxic agents including NSAIDs, as above o MRI with gadolinium contrast is safe o Hydration advised prior to CT with iodinated contrast Please bring a complete list of your medications, the dosage and times taken - to every visit. We want to know that ALL of your concerns/needs relevant to this visit- were met today and that we have hopefully exceeded your expectations. You may receive a survey regarding your care today. If you do, please take a few minutes to fill itout and send it back. It will be greatly appreciated. documented in this encounterMartins Ferry Hospital11-30-2022 History of Present illness Narrative* Doyle Rankin MD - 03/08/2022 4:14 PM EST The patient is a 80-year-old male. Patient was seen 6 months ago for a monoclonal protein detected on serum immunofixation. This was not quantified. The free serum kappa and lambda light chain levelswere normal. No abnormality in the F/L ratio. The patient also had normal quantitative immunoglobin's. No evidence of any anemia, peripheral neuropathy or hypercalcemia identified. We decided to continue to observe the patient. The labs were done basically in the past for an evaluation of mild renal dysfunction. Comes in today post blood work. Labs reviewed. Latest Reference Range & Units 02/28/22 13:04 Albumin 3.43 - 5.41 g/dL 4.32 Alpha 1 Globulin 0.18 - 0.43 g/dL 0.20 Alpha 2 Globulin 0.42 - 0.98 g/dL 0.68 Beta Globulin 0.61 - 1.17 g/dL 0.64 Gamma Globulin 0.53 - 1.51 g/dL 1.06 Interpretation (Prot Electro) No definitive M protein is identified on protein electrophoresis. An M protein is identified on protein electrophoresis. ! SPE Staff Review Reviewed by Deric Guan M.D. M-Protein Location Gamma Fraction 1 M-Protein Concentration <=0.00 g/dL 0.35 (H) MPA Result No M protein is identified. M protein is present. ! Interpretation (MPA) Atypical restricted bands are present in the IgG and kappa regions. Consistentwith IgG kappa monoclonal gammopathy. Staff Review (MPA) Reviewed by Deric Guan M.D. IgG 700 - 1,600 mg/dL 1,203 IgA 70 - 400 mg/dL 130 IgM 40 - 230 mg/dL 17 (L) Wray Free, Serum 3.3 - 19.4 mg/L 27.1 (H) Lambda Free, Serum 5.7 - 26.3 mg/L 26.6 (H) K/L Ratio, Serum 0.26 - 1.65 1.02 Interpretation Comment for Protein Electrophoresis See separate immunofixation report for characterization of monoclonal gammopathy. !: Data is abnormal (H): Data is abnormally high (L): Data is abnormally low The patient has no evidence to suggest any myeloma. His blood work is consistent with monoclonal gammopathy of unknown significance. He is in the low risk group. A serum protein to pheresis identified a M spike measuring 0.35 g/dL. There is no elevation in the light chain levels and the K/L ratio is normal. The patient lives in [place]. He will be scheduled to see Dr. Gary Kelly in [place] in 9 months. I put in for lab work to be done prior to that. Doyle Rankin MD documented in this encounterMartins Ferry Hospital10-05-2022 History of Present illness Narrative* Janusz Davenport MD - 01/11/2022 11:37 AM EDT Images from the original note were not included. [facility] UROLOGY ESTABLISHED PATIENT CLINIC NOTE UROLOGY PATIENT INFO: Qian Christie Pink 81 year old PCP: Jenae Savage MD UROLOGY DIAGNOSES: 1. Screening for genitourinary condition - ICD9: V81.6, ICD10: Z13.89 (primary diagnosis) 2. Benign prostatic hyperplasia without lower urinary tract symptoms - ICD9: 600.00, ICD10: N40.0 3. 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 ED (erectile dysfunction) of organic origin - ICD9: 607.84, ICD10: N52.9 5. Stage 3b chronic kidney disease (HCC) - ICD9: 585.3, ICD10: N18.32 HPI: Qian Pink returns for continuing evaluation and management. This is a very pleasant 81-year-old male with a history of hypertension, type 2 diabetes, hyperlipidemia, stage IIIb chronic kidney disease, history of benign bilateral renal cysts, and asymptomatic BPH status post TURP. Overall patient states that he has been well and does not present to me with any complaints. Deniesany voiding dysfunction, please see AUA symptom score below. INTERNATIONAL PROSTATE SYMPTOM SCORE (I-PSS) 1)INCOMPLETE EMPTYING Over the past month, how often have you had a sensation of not emptying your bladder completely after you finished urinating? SCORE: 1- Less than 1 time in 5 2)FREQUENCY Over the past month, how often have you had to urinate again less than two hours after you finishedurinating? SCORE: 1- Less than 1 time in 5 3)INTERMITTENCY Over the past month, how often have you found you stopped and started again several times when you urinated? SCORE: 1- Less than 1 time in 5 4)URGENCY Over the past month, how often have you found it difficult to postpone urination? SCORE: 1- Less than 1 time in 5 5)WEAK STREAM Over the past month, how often have you had a weak stream? SCORE: 1- Less than 1 time in 5 6)STRAINING Over the past month, how often have you had to push or strain to begin urination SCORE: 1- Less than 1 time in 5 7)NOCTURIA Over the past month, how many times did you most typically get up to urinate from the time you wentto bed at night until the time you get up in the morning? SCORE:1 TOTAL I-PSS SCORE: 7 QUALITY OF LIFE DUE TO URINARY SYMPTOMS If you were to spend the rest of yur life with your urinary condition just the way it is now, how would you feel about that? 1- Pleased PMHx/PSHx: see above, otherwise unchanged Rx: reviewed and unchanged ROS: see above, otherwise unchanged Labs: Glucose (mg/dL) Date Value 11/17/2021 111 05/21/2021 137 Potassium (mmol/L) Date Value 11/17/2021 4.5 05/21/2021 4.9 Sodium (mmol/L) Date Value 11/17/2021 140 05/21/2021 139 Chloride (mmol/L) Date Value 11/17/2021 104 05/21/2021 102 CO2 (mmol/L) Date Value 11/17/2021 24 05/21/2021 25 Creatinine (mg/dL) Date Value 11/17/2021 1.64 05/21/2021 1.82 BUN (mg/dL) Date Value 11/17/2021 29 05/21/2021 50 Anion Gap (mmol/L) Date Value 11/17/2021 12 05/21/2021 12 Calcium (mg/dL) Date Value 05/21/2021 10.4 Calcium, Total (mg/dL) Date Value 11/17/2021 10.0 Protein, Total (g/dL) Date Value 11/17/2021 7.1 05/21/2021 6.4 Albumin (g/dL) Date Value 11/17/2021 4.4 05/21/2021 3.9 Bilirubin, Total (mg/dL) Date Value 11/17/2021 0.9 05/21/2021 0.6 Alkaline Phosphatase (U/L) Date Value 11/17/2021 57 05/21/2021 167 AST (U/L) Date Value 11/17/2021 24 05/21/2021 58 ALT (U/L) Date Value 11/17/2021 28 05/21/2021 120 Imaging: IMPRESSION: 1. Bilateral renal cysts 2. Enlarged prostate 3. Moderate post void residual Campus Rep: MANOJ Transcribe Date/Time: Jan 03 2022 11:44A Dictated by : RASHEEDA ZACARIAS MD This examination was interpreted and the report reviewed and electronically signed by: RASHEEDA ZACARIAS MD on Jan 03 2022 11:48AM EST Results-Findings * * *Final Report* * * DATE OF EXAM: Jan 02 2022 1:46PM [id number] - US KIDNEY/BLADDER / PROCEDURE REASON: Congenital multiple renal cysts * * * * Physician Interpretation * * * * EXAMINATION: RENAL ULTRASOUND CLINICAL HISTORY: Renal cysts TECHNIQUE: Sonography of the kidneys and urinary bladder was performed. Images were obtained and stored in a permanent archive. MQ: UR_1 COMPARISON: Renal ultrasound 01/10/2021 RESULT: Right Kidney: -Renal length: 14.5 cm -Parenchyma: Normal parenchymal echogenicity. Normal parenchymal thickness. -Collecting system: No hydronephrosis. -Calculus: No echogenic, shadowing calculus. -Lesion: Again noted are multiple bilateral renal cysts. The largest of these is in the interpolar region and measures 10.9 x 8.9 x 10.5 cm. Left Kidney: -Renal length: 14.6 cm -Parenchyma: Normal parenchymal echogenicity. Normal parenchymal thickness. -Collecting system: No hydronephrosis. -Calculus: No renal calculi. There is a dystrophic calcification in the lateral cortex of the lower pole. -Lesion: Multiple left renal cysts. The largest of these measures 14 x 13 x 13 cm. Bladder: The bladder contains anechoic urine. Prevoid bladder volume measures 335 cc. Postvoid bladder volume measures 101 cc. The prostate is enlarged and projects into the base of the bladder. MEDICATIONS: Current Outpatient Medications Medication Sig Lactobac no.41/Bifidobact no.7 (PROBIOTIC-10 ORAL) Take by mouth. amLODIPine (NORVASC) 10 mg tablet Take 1 tablet by mouth once daily. triamcinolone acetonide (KENALOG) 0.1 % cream Apply 1 application to affected area three times daily. Apply sparingly to area for rash/itching. traZODone (DESYREL) 50 mg tablet Take 1 tablet by mouth daily at bedtime. Take as needed for insomnia ergocalciferol, vitamin D2, (VITAMIN D2 ORAL) Take by mouth. blood sugar diagnostic (BLOOD GLUCOSE TEST) test strip Test blood sugar(s) 1 times daily. Dx: Type 2 DM - Controlled E11.9 Insulin: No simvastatin (ZOCOR) 40 mg tablet Take 1 tablet by mouth daily at bedtime. lisinopril (ZESTRIL) 40 mg tablet Take 1 tablet by mouth once daily. Lancets lancets Test blood sugar(s) 1 times daily. Dx: Type 2 DM - Controlled E11.9 Insulin: No COMPOUNDED PRESCRIPTION Glucometer with test strips (whatever is covered by insurance) Dx: E11.9 Testing once per day Aspirin 81 mg Tab Take 81 mg by mouth once daily. MULTIVITAMIN TAB Take one(1) tablet daily. Tadalafil (CIALIS) 20 mg tab(s) Take 1 tablet by mouth as needed. Take 30-60 minutes prior to sexual activity No current facility-administered medications for this visit. PHYSICAL EXAM: There were no vitals taken for this visit. There is no height or weight on file to calculate BMI. General: Well masculinized, well nourished male Psych: euthymic, NAD Neuro: A&Ox3 examination deferred UROLOGICAL DATA: URINE POC GLUCOSE UA (POCT) Negative 01/11/2022 BILIRUBIN UA (POCT) Negative 01/11/2022 KETONE UA (POCT) Negative 01/11/2022 SPECIFIC GRAVITY UA (POCT) 1.010 01/11/2022 HEMOGLOBIN/BLOOD UA (POCT) Negative 01/11/2022 PH UA (POCT) 5.5 01/11/2022 PROTEIN UA (POCT) Negative 01/11/2022 UROBILINOGEN UA (POCT) 0.2 01/11/2022 NITRITE UA (POCT) Negative 01/11/2022 LEUKOCYTES UA (POCT) Negative 01/11/2022 COLOR UA (POCT) Yellow 01/11/2022 CLARITY UA (POCT) Clear 01/11/2022 Post Void Residual, Ultrasound: 0 cc, empties well OTHER DATA: PSA (ng/mL) Date Value 05/31/2020 4.11 04/10/2017 6.07 03/10/2016 2.29 05/17/2015 2.18 PSA, Percent Free (%) Date Value 05/31/2020 42 05/17/2015 41 09/28/2014 43 05/15/2014 21 No results found for: ISOPSA Creatinine Date Value Ref Range Status 11/17/2021 1.64 (H) 0.73 - 1.22 mg/dL Final 08/08/2021 1.55 (H) 0.73 - 1.22 mg/dL Final 06/23/2021 2.02 (H) 0.73 - 1.22 mg/dL Final 05/21/2021 1.82 (H) 0.73 - 1.22 mg/dL Final IMPRESSION/PLAN: 1. Benign prostatic hyperplasia without lower urinary tract symptoms - ICD9: 600.00, ICD10: N40.0 (primary diagnosis) -Patient is asymptomatic. Continue observation 2. Screening for genitourinary condition - ICD9: V81.6, ICD10: Z13.89 - UA DIP, URINE (POC) 3. 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 Repeat in ultrasound 1 year. - US KIDNEY/BLADDER 4. ED (erectile dysfunction) of organic origin - ICD9: 607.84, ICD10: N52.9 -Tadalafil continues to be effective as needed. Refill provided. - TADALAFIL 20 MG TABLET 5. Stage 3b chronic kidney disease (HCC) - ICD9: 585.3, ICD10: N18.32 -Continue nephrology follow-up Return in 1 year. Janusz Davenport M.D, MS Associate Staff [facility] [place] [facility] documented in this encounterMartins Ferry Hospital10-05-2022 Nurse Note* Dolly Blanco MA - 01/11/2022 11:37 AM EDT PVR = 0 ml documented in this encounterMartins Ferry Hospital08-16-2022 Instructions* Patient Instructions* Rafael Ramirez APRN.CNP - 11/22/2021 1:28 PM EDT Apply Kenalog cream to right foot Call Cardiology with recommendations for bilateral foot swelling with Amlodipine Stop Eliquis when you run out Get blood work at end of February for Dr Rankin. See us back in 6 months with labs prior. Rafael Ramirez APRN.DATA ANALYTICS ANALYST documented in this encounterMartins Ferry Hospital08-16-2022 History of Present illness Narrative* Rafael Ramirez APRN.CNP - 11/22/2021 1:00 PM EDT Chief Complaint Patient presents with: F/U 6 months HPI Qian Pink is a 80 year old male who presents here today for Chronic Medical Conditions.. PE: History of PE after long drive. Finishing Eliquis next week and then will be finished. Diabetes: Well controlled. Not on any medications. Hgb A1c 6.5%. Follows with [place] cardiology. Had a recent appointment. Doing well overall. He did have a medication change which included increasing his amlodipine from 5 to 10 mg daily. Since this occurrence, patient has had some bilateral lower leg edema. Patient also had a small rash on the right foot. Dorsal side. Has been applying some Kenalog cream to the area with some improvement. Does have some poison arshida looking dermatitis on right inner arm. Has been applying Kenalog also to this area. Followed with nephrology in August. Was referred to urology and onc/hematology. Has monoclonal (M) protein disease. Has follow up blood work due in February. Past medical history, appointments, medications, allergies reviewed. Previous Medical History PAST MEDICAL HISTORY Diagnosis Date Benign neoplasm of colon Bronchitis Diabetes mellitus, type 2 (HCC) diet controlled Diverticulosis of small intestine (without mention of hemorrhage) First degree atrioventricular block Hypertensive kidney disease, benign Internal hemorrhoids without mention of complication Pure hypercholesterolemia Sinusitis SVT (supraventricular tachycardia) (HCC) Syncope Previous Surgical History PAST SURGICAL HISTORY Procedure Laterality Date COLONOSCOPY FLX DX W/COLLJ SPEC WHEN PFRMD 03/18/2001 Colonoscopy COLONOSCOPY FLX DX W/COLLJ SPEC WHEN PFRMD 10/24/12 Colonoscopy COLONOSCOPY W/BIOPSY SINGLE/MULTIPLE 04/24/2006 CYSTOURETHROSCOPY 08/21/2002 Cystoscopy; Dr. Ortiz Meza. ECHOCARDIOGRAM 05/23/2018 normal LV systolic fxn; LVEF 65%; stage I diastolic dysfxn; no substantial valvular abnormalities LAPAROSCOPY SURG CHOLECYSTECTOMY Cholecystectomy, lap STRESS TEST EXERCISE-NUCLEAR 05/24/2018 [facility]rie protocol 8 min 46 sec; 104% MPHR; 10.1 METs; narrow complex tachycardia in late peak and early recovery stages, 140s bpm TRURL ELECTROSURG RESCJ PROSTATE BLEED COMPLETE 10/2012 TURP Family History FAMILY HISTORY Problem Relation Age of Onset Stroke Mother dm Hypertension Mother Diabetes Mother Heart disease Mother Heart Father dm Heart disease Father Diabetes Father Diabetes Sister Diabetes Sister Heart Brother dm Diabetes Brother other (brain cancer) Brother dm Patient Allergies ALLERGIES No Known Allergies Current Medications Current Outpatient Medications on File Prior to Visit Medication Sig amLODIPine (NORVASC) 5 mg tablet Take by mouth once daily. apixaban (ELIQUIS) 5 mg tab(s) Take 0.5 tablets by mouth twice daily. traZODone (DESYREL) 50 mg tablet Take 1 tablet by mouth daily at bedtime. Take as needed for insomnia Tadalafil (CIALIS) 20 mg tab(s) Take 1 tablet by mouth as needed. Take 30-60 minutes prior to sexual activity ergocalciferol, vitamin D2, (VITAMIN D2 ORAL) Take by mouth. blood sugar diagnostic (BLOOD GLUCOSE TEST) test strip Test blood sugar(s) 1 times daily. Dx: Type 2 DM - Controlled E11.9 Insulin: No omeprazole (PRILOSEC) 20 mg capsule Take 1 capsule by mouth daily before breakfast. 1/2 hr before meal. simvastatin (ZOCOR) 40 mg tablet Take 1 tablet by mouth daily at bedtime. lisinopril (ZESTRIL) 40 mg tablet Take 1 tablet by mouth once daily. Lancets lancets Test blood sugar(s) 1 times daily. Dx: Type 2 DM - Controlled E11.9 Insulin: No COMPOUNDED PRESCRIPTION Glucometer with test strips (whatever is covered by insurance) Dx: E11.9 Testing once per day Aspirin 81 mg Tab Take 81 mg by mouth once daily. MULTIVITAMIN TAB Take one(1) tablet daily. No current facility-administered medications on file prior to visit. Social History Social History Tobacco Use Smoking status: Former Packs/day: 0.50 Years: 10.00 Pack years: 5.00 Types: Cigarettes Start date: 1968 Quit date: 1978 Years since quittin.6 Smokeless tobacco: Never Tobacco comments: quit 50 years ago Vaping Use Vaping Use: Never used Substance Use Topics Alcohol use: No Drug use: No REVIEW OF SYSTEMS: as above Reviewed relevant PMHx, PSHx, Social Hx, current medications and allergies. EXAM: BP 122/70 Pulse 74 Temp 36.6 C (97.8 F) (Left Tympanic) Resp 14 Wt 85.3 kg (188 lb) BMI 27.07 kg/m General Appearance: Well appearing, alert, in no acute distress, well-hydrated, well nourished.. Lungs: Lungs clear to auscultation. No wheezing, rhonchi, rales.. Heart: RRR without murmur, gallop, or rubs. No ectopy. Abdomen: Normal abdominal exam, Abdomen soft, non-tender. Bowel sounds normal. No masses, organomegaly. Extremities: Pulses: 2+, Edema: +1 bilateral edema in lower ankle. Health Maintenance List SHINGRIX VACCINE(2 of 3) due on 04/07/2013 DIABETIC FOOT EXAM due on 06/06/2020 ADVANCE DIRECTIVE DISCUSSION Never done COVID-19 VACCINE(4 - Booster for Moderna series) due on 06/22/2021 INFLUENZA(1) due on 12/08/2021 DILATED RETINAL EXAM due on 01/20/2022 HBA1C due on 05/20/2022 URINE ALBUMIN:CREATININE RATIO due on 05/21/2022 FECAL OCCULT BLOOD due on 06/20/2022 LDL CHOLESTEROL due on 06/23/2022 DTAP,TDAP,TD(3 - Td or Tdap) due on 03/08/2027 PNEUMOCOCCAL: 65+ Completed Data reviewed Component Latest Ref Rng & Units 08/08/2021 08/10/2021 09/07/2021 09/16/2021 11/17/2021 Protein, Total 6.3 - 8.0 g/dL 7.1 Albumin 3.9 - 4.9 g/dL 4.6 4.4 Calcium 8.5 - 10.2 mg/dL 10.0 10.0 Bilirubin, Total 0.2 - 1.3 mg/dL 0.9 Alkaline Phosphatase 38 - 113 U/L 57 AST 14 - 40 U/L 24 ALT 10 - 54 U/L 28 Glucose 74 - 99 mg/dL 111 (H) 111 (H) BUN 9 - 24 mg/dL 29 (H) 29 (H) Creatinine 0.73 - 1.22 mg/dL 1.55 (H) 1.64 (H) Sodium 136 - 144 mmol/L 139 140 Potassium 3.7 - 5.1 mmol/L 4.6 4.5 Chloride 97 - 105 mmol/L 104 104 CO2 22 - 30 mmol/L 23 24 Anion Gap 9 - 18 mmol/L 12 12 eGFR >=60 mL/min/1.73m 45 (L) 42 (L) Color Yellow Light Yellow Clarity Clear Clear Glucose, Urine Negative Negative Bilirubin, Urine Negative Negative Ketones, Urine Negative Negative Specific [place], Ur 1.005 - 1.030 1.010 Hemoglobin/Blood,Ur Negative Negative pH, Urine 5.0 - 8.0 6.0 Protein, Urine Negative Negative Urobilinogen Negative Negative Nitrites Negative Negative Leukest Negative Negative WBC, Urine 0-5 /HPF 0-5 /HPF RBC, Urine 0-3 /HPF 0-3 /HPF Epithelial Cells /HPF Few Phosphorus 2.7 - 4.8 mg/dL 3.5 GLUCOSE UA (POCT) Negative mg/dL Negative BILIRUBIN UA (POCT) Negative Negative KETONE UA (POCT) Negative mg/dL Negative SPECIFIC GRAVITY UA (POCT) 1.005 - 1.030 1.010 HEMOGLOBIN/BLOOD UA (POCT) Negative Negative PH UA (POCT) 4.5 - 8.0 5.5 PROTEIN UA (POCT) Negative mg/dL Negative UROBILINOGEN UA (POCT) Normal E.U./dL 0.2 NITRITE UA (POCT) Negative Negative LEUKOCYTES UA (POCT) Negative Negative COLOR UA (POCT) Yellow CLARITY UA (POCT) Clear WBC 3.70 - 11.00 k/uL 6.62 RBC 4.20 - 6.00 m/uL 5.64 Hemoglobin 13.0 - 17.0 g/dL 15.7 Hematocrit 39.0 - 51.0 % 48.5 MCV 80.0 - 100.0 fL 86.0 MCH 26.0 - 34.0 pg 27.8 MCHC 30.5 - 36.0 g/dL 32.4 RDW-CV 11.5 - 15.0 % 13.6 Platelet Count 150 - 400 k/uL 211 MPV 9.0 - 12.7 fL 9.8 Absolute nRBC <0.01 k/uL <0.01 Shigella spp./Enteroinvasive E.coli DNA Not Detected Not detected Campylobacter jejuni/coli DNA Not Detected Not detected Shiga toxin-producing gene(s) Not Detected Not detected Salmonella spp. DNA Not Detected Not detected Protein, Urine Random 0 - 20 mg/dL 6 Creatinine, Ur Random (UCRR) 20.0 - 300.0 mg/dL 56.4 Protein/Creat Ratio <0.2 0.1 IgG 700-1,600 mg/dL 1,257 IgA 70 - 400 mg/dL 156 IgM 40 - 230 mg/dL 18 (L) MPA Result No M protein is identified. M protein is present. (A) Interpretation (MPA) Atypical restricted bands are present in the IgG and kappa regions. Consistentwith IgG kappa monoclonal gammopathy. Staff Review ([facility]) Reviewed by Mary Cox MD Wray Free, Serum 3.3 - 19.4 mg/L 22.9 (H) Lambda Free, Serum 5.7 - 26.3 mg/L 26.2 K/L Ratio, Serum 0.26 - 1.65 0.87 Cryptosporidium Antigen by EIA Negative Negative for Cryptosporidium by EIA. Giardia Antigen by EIA Negative Negative for Giardia lamblia by EIA. Hemoglobin A1C 4.3 - 5.6 % 6.5 (H) Estimated Average Glucose mg/dL 140 PTH, Intact 15 - 65 pg/mL 51 Vitamin D 25 Hydroxy 31.0 - 80.0 ng/mL 67.4 ASSESSMENT/PLAN: 1. Type 2 diabetes mellitus without complication, without long-term current use of insulin (HCC) - ICD9: 250.00, ICD10: E11.9 (primary diagnosis) Controlled. - Continue with lifestyle changes. - HGB A1C 2. Hyperlipidemia, unspecified hyperlipidemia type - ICD9: 272.4, ICD10: E78.5 - good control - Continue current medication. - Encouraged following a low fat, low cholesterol diet. - Discussed the benefits of regular aerobic exercise and weight loss. - LIPID PANEL BASIC 3. Stage 3b chronic kidney disease (HCC) - ICD9: 585.3, ICD10: N18.32 - Stable - COMP METABOLIC PANEL 4. Essential hypertension, benign - ICD9: 401.1, ICD10: I10 - good control - Continue current medication(s) - Recommended regular aerobic exercise. - Recommend home blood pressure monitoring, to bring results in on next visit - Goal of BP <130/80 - COMP METABOLIC PANEL 5. Acute pulmonary embolism, unspecified pulmonary embolism type, unspecified whether acute cor pulmonale present (HCC) - ICD9: 415.19, ICD10: I26.99 - Can stop Eliquis 6. Dermatitis - ICD9: 692.9, ICD10: L30.9 - Unknown etiology, possible poison arshida. - TRIAMCINOLONE ACETONIDE 0.1 % TOPICAL CREAM 7. Bilateral leg edema - ICD9: 782.3, ICD10: R60.0 - Secondary to amlodipine increase, patient will reach out to cardiology Rafael Ramirez APRN.MAGAL[facility] RTO in 6 months, sooner if needed. This note was partly generated using [employer] voice recognition dictation and may contain some misspelled or inaccurate words missed on review. documented in this encounter[facility]06-[facility]22 Miscellaneous Notes* Telephone Encounter - Maryellen Terry Ma - 09/09/2021 4:09 PM EDT Pt notified * Telephone Encounter - Troy Stein MD - 09/09/2021 4:04 PM EDT Needs new sample. See below * Telephone Encounter - Troy Stein MD - 09/09/2021 4:04 PM EDT ----- Message from Stephania Massey sent at 09/09/2021 10:10 AM EDT ----- Regarding: New Lab Order Needed Please place a new order for OVA + PARA, if clinically indicated. The container was either leaking or broken when it arrived to the laboratory. Thank you. If any questions, please contact Laboratory Client Services. DO NOT REPLY TO THIS MESSAGE. documented in this encounterMartins Ferry [facility]06-01-2022 Miscellaneous Notes* Telephone Encounter - Kinza Wasserman Ma - 09/07/2021 12:25 PM EDT Call to pt , Suzanne and notified of below. She was made aware that lab will help with directions on collecting. Kinza Wasserman Ma * Telephone Encounter - Jenae Savage MD - 09/07/2021 12:15 PM EDT OK for stool cultures as ordered Jenae Savage MD * Telephone Encounter - Kinza Wasserman Ma - 09/07/2021 10:36 AM EDT See message below. [facility] ER report on PCP desk to review. Kinza Wasserman Ma * Telephone Encounter - Rissa White LPN - 09/07/2021 9:21 AM EDT Patient Suzanne calling yesterday was in [facility] ER for diarrhea, vomiting. He was diagnosed with viral gastroenteritis. He was given zofran for nausea, told to take pepto bismol for the diarrhea. is asking if should have stool samples done? He was unable to collect one at the ER, but having liquid stools still today, 5 to 6 times already. Pending orders if wanted, needs diagnosis. Please advise documented in this encounterMartins [facility]05-04-2022 History of Present illness Narrative* Janusz Davenport MD - 08/10/2021 1:00 PM EDT Images from the original note were not included. [facility] UROLOGY PATIENT CLINIC NOTE PATIENT: Qian Pink (80 year old) PCP: Jenae Savage MD REFERRING PROVIDER: Ángel Julio DO (nephrology) MEGHAN FOR CONSULTATION: BPH HISTORY OF PRESENT ILLNESS: 80 year old year old male with BPH, s/p TURP in 2013, ED, CKD stage IIIb, DM 2, hyperlipidemia, history of bilateral PE, and hypertension who presents for his enlarged prostate, found on renal/bladder ultrasound in January. Additionally the prostate appeared to be nodular and invaginated into the bladder. Despite this the patient does not present to me with any problematic obstructive urinary symptoms. Ultrasound also revealed large renal cysts. [address] showed that the left kidney had a 10.5 cmcyst which increased to 11.9 x 2022 study. In 2013 the right kidney had a 8 cm cyst that increased to 9.8 cm x 2022. URINARY: DAYTIME FREQUENCY: Every 4 hours NIGHTTIME FREQUENCY: 0 IRRITATIVE - BOTHERSOME FREQUENCY: No - URGENCY: No - INCONTINENCE: Stress No / Urge No OBSTRUCTIVE - FORCE OF STREAM: Average - HESITANCY: No - INTERMITTENCY: No - STRAINING: No - INCOMPLETE EMPTYING: Yes, rare - DOUBLE VOIDING: No - POSTVOID DRIBBLING: No PATIENT ENTERED QUESTIONNAIRES INTERNATIONAL PROSTATE SYMPTOM SCORE (I-PSS) 1)INCOMPLETE EMPTYING Over the past month, how often have you had a sensation of not emptying your bladder completely after you finished urinating? SCORE: 1- Less than 1 time in 5 2)FREQUENCY Over the past month, how often have you had to urinate again less than two hours after you finishedurinating? SCORE: 0- Not at all 3)INTERMITTENCY Over the past month, how often have you found you stopped and started again several times when you urinated? SCORE: 0- Not at all 4)URGENCY Over the past month, how often have you found it difficult to postpone urination? SCORE: 0- Not at all 5)WEAK STREAM Over the past month, how often have you had a weak stream? SCORE: 1- Less than 1 time in 5 6)STRAINING Over the past month, how often have you had to push or strain to begin urination SCORE: 0- Not at all 7)NOCTURIA Over the past month, how many times did you most typically get up to urinate from the time you wentto bed at night until the time you get up in the morning? SCORE:0 TOTAL I-PSS SCORE: 2 QUALITY OF LIFE DUE TO URINARY SYMPTOMS If you were to spend the rest of yur life with your urinary condition just the way it is now, how would you feel about that? 1- Pleased REVIEW OF SYSTEMS: Reviewed and otherwise non-contributory HISTORY: PAST MEDICAL HISTORY Diagnosis Date Benign neoplasm of colon Bronchitis Diabetes mellitus, type 2 (HCC) diet controlled Diverticulosis of small intestine (without mention of hemorrhage) First degree atrioventricular block Hypertensive kidney disease, benign Internal hemorrhoids without mention of complication Pure hypercholesterolemia Sinusitis SVT (supraventricular tachycardia) (HCC) Syncope PAST SURGICAL HISTORY Procedure Laterality Date COLONOSCOPY FLX DX W/COLLJ SPEC WHEN PFRMD 03/18/2001 Colonoscopy COLONOSCOPY FLX DX W/COLLJ SPEC WHEN PFRMD 10/24/12 Colonoscopy COLONOSCOPY W/BIOPSY SINGLE/MULTIPLE 04/24/2006 CYSTOURETHROSCOPY 08/21/2002 Cystoscopy; Dr. Ortiz Meza. ECHOCARDIOGRAM 05/23/2018 normal LV systolic fxn; LVEF 65%; stage I diastolic dysfxn; no substantial valvular abnormalities LAPAROSCOPY SURG CHOLECYSTECTOMY Cholecystectomy, lap STRESS TEST EXERCISE-NUCLEAR 05/24/2018 [facility] protocol 8 min 46 sec; 104% MPHR; 10.1 METs; narrow complex tachycardia in late peak and early recovery stages, 140s bpm TRURL ELECTROSURG RESCJ PROSTATE BLEED COMPLETE 10/2012 TURP Social History Tobacco Use Smoking status: Former Smoker Packs/day: 0.50 Years: 10.00 Pack years: 5.00 Start date: 1968 Quit date: 1978 Years since quittin.3 Smokeless tobacco: Never Used Tobacco comment: quit 50 years ago Vaping Use Vaping Use: Never used Substance Use Topics Alcohol use: No Drug use: No FAMILY HISTORY Problem Relation Age of Onset Stroke Mother dm Hypertension Mother Diabetes Mother Heart disease Mother Heart Father dm Heart disease Father Diabetes Father Diabetes Sister Diabetes Sister Heart Brother dm Diabetes Brother other (brain cancer) Brother dm MEDICATIONS: Current Outpatient Medications Medication Sig amLODIPine (NORVASC) 5 mg tablet Take by mouth once daily. apixaban (ELIQUIS) 5 mg tab(s) Take 0.5 tablets by mouth twice daily. traZODone (DESYREL) 50 mg tablet Take 1 tablet by mouth daily at bedtime. Take as needed for insomnia Tadalafil (CIALIS) 20 mg tab(s) Take 1 tablet by mouth as needed. Take 30-60 minutes prior to sexual activity ergocalciferol, vitamin D2, (VITAMIN D2 ORAL) Take by mouth. blood sugar diagnostic (BLOOD GLUCOSE TEST) test strip Test blood sugar(s) 1 times daily. Dx: Type 2 DM - Controlled E11.9 Insulin: No omeprazole (PRILOSEC) 20 mg capsule Take 1 capsule by mouth daily before breakfast. 1/2 hr before meal. simvastatin (ZOCOR) 40 mg tablet Take 1 tablet by mouth daily at bedtime. lisinopril (ZESTRIL) 40 mg tablet Take 1 tablet by mouth once daily. Lancets lancets Test blood sugar(s) 1 times daily. Dx: Type 2 DM - Controlled E11.9 Insulin: No COMPOUNDED PRESCRIPTION Glucometer with test strips (whatever is covered by insurance) Dx: E11.9 Testing once per day MULTIVITAMIN TAB Take one(1) tablet daily. Aspirin 81 mg Tab Take 81 mg by mouth once daily. (Patient not taking: Reported on 08/08/2021 ) No current facility-administered medications for this visit. PHYSICAL EXAMINATION: VITALS: There were no vitals taken for this visit. GENERAL: alert, no distress, normal affect RESPIRATORY: normal effort ABDOMEN: soft, non-tender, GENITOURINARY: - PENIS: uncircumcised, no penile plaques, no skin lesions - SCROTUM: no rashes, no masses, no edema - TESTES: nl size, nl consistency, no mass - RECTAL: approximately 30 g prostate, no nodules - PELVIC FLOOR: nl tone, no tenderness EXTREMITIES: warm, no dependent edema, no malformations SKIN: no abnormal bruising, no rashes, no cyanosis NEUROLOGIC: normal gait, good manual dexterity, no paralysis IMAGING: IMPRESSION: Increased renal echogenicity consistent with chronic medical renal disease Bilateral simple renal cysts. Within the limits of the examination no suspicious solid masses are noted. Nonobstructing left nephrolithiasis. No hydronephrosis. Nodular enlarged prostate gland invaginates into the bladder lumen which demonstrates wall trabeculation. [facility] Rep[facility] Transcribe Date/Time: Jan 10 2021 3:19P Dictated by : RISSA LOPEZ MD This examination was interpreted and the report reviewed and electronically signed by: RISSA LOPEZ MD on Jan 10 2021 3:26PM EST Results-Findings * * *Final Report* * * DATE OF EXAM: Jan 10 2021 3:08PM [facility] 1055 - US KIDNEY/BLADDER / PROCEDURE REASON: multiple diagnoses * * * * Physician Interpretation * * * * EXAMINATION: RENAL ULTRASOUND CLINICAL HISTORY: Stage III kidney disease. Increased creatinine TECHNIQUE: Sonography of the kidneys and urinary bladder was performed. Images were obtained and stored in a permanent archive. MQ: [id number] COMPARISON: Comparison is made to prior ultrasound dated 06/09/[address] dated 06/09/2013 RESULT: Right Kidney: -Renal length: 13.8 cm -Parenchyma: Normal parenchymal echogenicity. Normal parenchymal thickness. -Collecting system: No hydronephrosis. -Calculus: No echogenic, shadowing calculus. -Lesion: There are 3 simple cysts within the right kidney. The largest at the midpole measures 10.5 x 9.6 x 8.6 cm. 2 adjacent cysts at the upper pole measured 2.5 x 2.1 x 2.1 cm and 2.8 x 2.3 x 2.0 cm. Smaller scattered subcentimeter simple cysts are present. There are no suspicious solid masses. Left Kidney: -Renal length: 13.1 cm -Parenchyma: Increased parenchymal echogenicity. Normal parenchymal thickness. -Collecting system: No hydronephrosis. -Calculus: Several punctate less than 6 mm nonobstructing stones are noted at the mid lower pole corticomedullary junction. -Lesion: Unilocular cyst projects from the mid to upper pole left kidney and measures 13.9 x 13 x 11.1 cm. Smaller lower pole simple cyst measures 2.8 x 2.6 x 2.2 cm. Smaller scattered subcentimeter simple cysts are present. There are no suspicious solid masses. Bladder: Pre and post void evaluation of the bladder was performed. The prostate gland is enlarged and nodular and invaginates into the bladder using lumen. There is bladder wall trabeculation. There are no extrinsic or intraluminal abnormalities noted within the limits of the examination. Pre void volume measures 311 cm3 with a moderate postvoid residual measuring 136 cm3. Free fluid: None OFFICE DATA: POST-VOID RESIDUAL BLADDER VOLUME: 103 cc URINALYSIS GLUCOSE UA (POCT) Negative 01/05/2021 BILIRUBIN UA (POCT) Negative 01/05/2021 KETONE UA (POCT) Negative 01/05/2021 SPECIFIC GRAVITY UA (POCT) 1.010 01/05/2021 HEMOGLOBIN/BLOOD UA (POCT) Negative 01/05/2021 PH UA (POCT) 6.0 01/05/2021 PROTEIN UA (POCT) Negative 01/05/2021 UROBILINOGEN UA (POCT) 0.2 01/05/2021 NITRITE UA (POCT) Negative 01/05/2021 LEUKOCYTES UA (POCT) Negative 01/05/2021 COLOR UA (POCT) Yellow 01/05/2021 CLARITY UA (POCT) Clear 01/05/2021 OTHER DATA: Creatinine Creatinine Date Value Ref Range Status 08/08/2021 1.55 (H) 0.73 - 1.22 mg/dL Final 06/23/2021 2.02 (H) 0.73 - 1.22 mg/dL Final 05/21/2021 1.82 (H) 0.73 - 1.22 mg/dL Final 12/21/2020 1.71 (H) 0.73 - 1.22 mg/dL Final PSA PSA (ng/mL) Date Value 05/31/2020 4.11 04/10/2017 6.07 03/10/2016 2.29 05/17/2015 2.18 ASSESSMENT/PLAN: 1. Benign prostatic hyperplasia without lower urinary tract symptoms - ICD9: 600.00, ICD10: N40.0 (primary diagnosis) -Reassurance provided. Patient doing well after his TURP. Patient is not symptomatic. Continue same. 2. Screening for genitourinary condition - ICD9: V81.6, ICD10: Z13.89 - UA DIP, URINE (POC) 3. Congenital multiple renal cysts - ICD9: 753.19, ICD10: Q61.02 Repeat kidney/bladder ultrasound 1 year from last exam. - US KIDNEY/BLADDER 4. Erectile dysfunction, unspecified erectile dysfunction type - ICD9: 607.84, ICD10: N52.9 -Patient states that he has no need for tadalafil at this time and actually feels that his ED symptoms are better than before. I would like to see the patient back in 5 months. Reevaluate renal/bladder ultrasound prior to visit. A total of 45 minutes was spent on the date of the service which included preparing to see the patient, [id number] patient care, completing clinical documentation, obtaining and/or reviewing separately obtained history, performing a medically appropriate examination, counseling and educating the p atient/family/caregiver and ordering medications, tests, or procedures. Janusz Davenport MD, MS Associate Staff [facility] [place] [facility] documented in this encounterMartins Ferry Hospital05-04-2022 Nurse Note* Ashlie Castillo RN - 08/10/2021 12:58 PM EDT PVR 103 ML documented in this encounterMartins Ferry Hospital05-04-2022 Miscellaneous Notes* Telephone Encounter - Ángel Julio DO - 08/10/2021 8:41 AM EDT Will refer to hematology for M protein. Unlikely causing renal function decline due to lack of proteinuria. documented in this encounterMartins Ferry Hospital05-02-2022 Instructions* Patient Instructions* Ángel Julio DO - 08/08/2021 11:25 AM EDT Avoid Advil, Ibuprofen(Motrin), Aleve(Naproxen), Meloxicam(Mobic) and other pain/arthritis medications called NSAIDS. Tylenol if necessary for pain Follow low salt diet. (1/2 tsp salt) <2 grams Lab work today and in 2 days before next visit Follow up with Dr. Julio in 6 months. Please bring a complete list of your medications, the dosage and times taken - to every visit. We want to know that ALL of your concerns/needs relevant to this visit- were met today and that we have hopefully exceeded your expectations. You may receive a survey regarding your care today. If you do, please take a few minutes to fill itout and send it back. It will be greatly appreciated. documented in this encounterMartins Ferry Hospital05-02-2022 History of Present illness Narrative* Ángel Julio DO - 08/08/2021 11:00 AM EDT [facility] SERVICE DATE: 08/08/2021 SERVICE TIME: 11:31 AM REASON FOR CONSULT: I am asked to see this patient in consultation for my opinion regarding CKD IIIb. My recommendations will be communicated by way of shared medical record, fax, or mail. REQUESTING PHYSICIAN: Rafael Ramirez APRN.[facility] PHYSICIAN: Jenae Savage MD CHIEF COMPLAINT: Chronic kidney disease stage IIIb HPI: Mr. Pink is a 80 year old male with a PMHx of hypertension, diabetes mellitus, and hyperlipidemia who presents with chronic kidney disease stage IIIb. Normal renal function 2013 AUDI 08/20/2012. Renal function returned to baseline. Acute urinary retention. TURP 09/2012 with mild AUDI. Renal function steadily declining since 2018 ACR negative US kidney/bladder with increased renal echogenicity and a nodular enlarged prostate gland that invaginates into the bladder lumen which demonstrates wall trabeculation Last urology appointment in 01/05/2021 - PVR 158 and then 89 when rescanned Well controlled diabetes since 2013 Hypertension regimen: - Norvasc 5 mg daily - Lisinopril 40 mg daily No issues Duration (when): 2018 Location (where): Kidneys Severity (ex: creat 4.5, BP 200/100): CKD IIIb Quality (ex: sharp, dull): Chronic Context (ex: activity at onset or related to condition): Obstruction, DM Timing (ex: continuous, intermittent): Continuous Modifying factors (ex: medications, interventions): Blood pressure medications Associated signs & symptoms (ex: edema, SOB): N/A PAST MEDICAL HISTORY: PAST MEDICAL HISTORY Diagnosis Date Benign neoplasm of colon Bronchitis Diabetes mellitus, type 2 (HCC) diet controlled Diverticulosis of small intestine (without mention of hemorrhage) First degree atrioventricular block Hypertensive kidney disease, benign Internal hemorrhoids without mention of complication Pure hypercholesterolemia Sinusitis SVT (supraventricular tachycardia) (HCC) Syncope PAST SURGICAL HISTORY: PAST SURGICAL HISTORY Procedure Laterality Date COLONOSCOPY FLX DX W/COLLJ SPEC WHEN PFRMD 03/18/2001 Colonoscopy COLONOSCOPY FLX DX W/COLLJ SPEC WHEN PFRMD 10/24/12 Colonoscopy COLONOSCOPY W/BIOPSY SINGLE/MULTIPLE 04/24/2006 CYSTOURETHROSCOPY 08/21/2002 Cystoscopy; Dr. Ortiz Meza. ECHOCARDIOGRAM 05/23/2018 normal LV systolic fxn; LVEF 65%; stage I diastolic dysfxn; no substantial valvular abnormalities LAPAROSCOPY SURG CHOLECYSTECTOMY Cholecystectomy, lap STRESS TEST EXERCISE-NUCLEAR 05/24/2018 Brarie protocol 8 min 46 sec; 104% MPHR; 10.1 METs; narrow complex tachycardia in late peak and early recovery stages, 140s bpm TRURL ELECTROSURG RESCJ PROSTATE BLEED COMPLETE 10/2012 TURP FAMILY HISTORY: FAMILY HISTORY Problem Relation Age of Onset Stroke Mother dm Hypertension Mother Diabetes Mother Heart disease Mother Heart Father dm Heart disease Father Diabetes Father Diabetes Sister Diabetes Sister Heart Brother dm Diabetes Brother other (brain cancer) Brother dm SOCIAL HISTORY: Social History Tobacco Use Smoking status: Former Smoker Packs/day: 0.50 Years: 10.00 Pack years: 5.00 Start date: 1968 Quit date: 1978 Years since quittin.3 Smokeless tobacco: Never Used Tobacco comment: quit 50 years ago Vaping Use Vaping Use: Never used Substance Use Topics Alcohol use: No Drug use: No MEDICATIONS: amLODIPine (NORVASC) 5 mg tablet Take by mouth once daily. apixaban (ELIQUIS) 5 mg tab(s) Take 0.5 tablets by mouth twice daily. traZODone (DESYREL) 50 mg tablet Take 1 tablet by mouth daily at bedtime. Take as needed for insomnia Tadalafil (CIALIS) 20 mg tab(s) Take 1 tablet by mouth as needed. Take 30-60 minutes prior to sexual activity ergocalciferol, vitamin D2, (VITAMIN D2 ORAL) Take by mouth. blood sugar diagnostic (BLOOD GLUCOSE TEST) test strip Test blood sugar(s) 1 times daily. Dx: Type 2 DM - Controlled E11.9 Insulin: No omeprazole (PRILOSEC) 20 mg capsule Take 1 capsule by mouth daily before breakfast. 1/2 hr before meal. simvastatin (ZOCOR) 40 mg tablet Take 1 tablet by mouth daily at bedtime. lisinopril (ZESTRIL) 40 mg tablet Take 1 tablet by mouth once daily. Lancets lancets Test blood sugar(s) 1 times daily. Dx: Type 2 DM - Controlled E11.9 Insulin: No COMPOUNDED PRESCRIPTION Glucometer with test strips (whatever is covered by insurance) Dx: E11.9Testing once per day Aspirin 81 mg Tab Take 81 mg by mouth once daily. MULTIVITAMIN TAB Take one(1) tablet daily. ALLERGIES: ALLERGIES No Known Allergies REVIEW OF SYSTEMS: Constitutional: No fevers, chills, weight loss Eyes: No loss in vision, photophobia Ear, Nose, and Throat: No epistaxis, nasal congestion Cardiovascular: No chest pain, MONTERROSO, SOB, palpitations Respiratory: No cough, hemoptysis Gastrointestinal: No diarrhea, constipation Genitourinary: No dysuria, polyuria Musculoskeletal: No joint pain, morning stiffness Skin: No rash, no ulcers Neurological: No headaches, seizures, paresthesias Psychiatric: No depression, anxiety Endocrine: No hair loss, no heat intolerance Hematologic:No easy bruising, easy bleeding PHYSICAL EXAM: BP 131/71 Pulse (!) 57 Resp 12 Ht 177.8 cm (5' 10 ) Wt 86.2 kg (190 lb) BMI 27.26 kg/m @BPTRU@ Constitutional: No acute distress, Responsive, Normal habitus and Well-nourished Eyes: Conjunctiva clear and PERRL Ear, Nose, and Throat: Hearing normal, Lips normal and Dentition normal Neck:Trachea midline No jugular venous distension Cardiovascular:No peripheral edema Regular rate and ryhthm, normal S1 and S2, no murmurs, rubs, or gallops Respiratory: Normal respiratory effort. Lungs clear bilaterally. Abdomen:Soft, non-tender, non-distended. Normal bowel sounds. No hepatosplenomegaly. Musculoskeletal: No clubbing or cyanosis of digits., Normocephalic. and No muscle weakness, joint tenderness, or joint effusions. Neurologic:CN II-XII intact and Normal sensation Psychiatric: Alert and oriented x self, place, time, and setting Normal mood/affect DATA: Diagnostic tests reviewed for today's visit: Glucose (mg/dL) Date Value 06/23/2021 116 05/21/2021 137 Potassium (mmol/L) Date Value 06/23/2021 4.5 05/21/2021 4.9 Sodium (mmol/L) Date Value 06/23/2021 139 05/21/2021 139 Chloride (mmol/L) Date Value 06/23/2021 103 05/21/2021 102 CO2 (mmol/L) Date Value 06/23/2021 22 05/21/2021 25 Creatinine (mg/dL) Date Value 06/23/2021 2.02 05/21/2021 1.82 BUN (mg/dL) Date Value 06/23/2021 42 05/21/2021 50 Anion Gap (mmol/L) Date Value 06/23/2021 14 05/21/2021 12 Calcium (mg/dL) Date Value 05/21/2021 10.4 Calcium, Total (mg/dL) Date Value 06/23/2021 10.0 Protein, Total (g/dL) Date Value 06/23/2021 7.3 05/21/2021 6.4 Albumin (g/dL) Date Value 06/23/2021 4.4 05/21/2021 3.9 Bilirubin, Total (mg/dL) Date Value 06/23/2021 1.1 05/21/2021 0.6 Alkaline Phosphatase (U/L) Date Value 06/23/2021 51 05/21/2021 167 AST (U/L) Date Value 06/23/2021 22 05/21/2021 58 ALT (U/L) Date Value 06/23/2021 20 05/21/2021 120 ASSESSMENT: Mr. Pink is a 80 year old male with a PMHx of hypertension, diabetes mellitus, and hyperlipidemiawho presents with chronic kidney disease stage IIIb. Chronic kidney disease stage IIIb - Etiology likely to obstructive uropathy, hypertensive nephrosclerosis, and perhaps non-proteinuric diabetic nephropathy. - Last urology appointment in 01/05/2021 - PVR 158 and then 89 when rescanned Normal renal function 2012 AUDI 08/20/2012. Renal function returned to baseline. Acute urinary retention. TURP 09/2012 with mild AUDI. Renal function steadily declining since 2019 - ACR negative - US kidney/bladder with increased renal echogenicity and a nodular enlarged prostate gland that invaginates into the bladder lumen which demonstrates wall trabeculation 2. Anemia of renal disease - Hemoglobin at goal 3. Secondary hyperparathyroidism - Will check PTH/Vit D 4. Primary hypertension - Excellent control on current medications Hypertension regimen: - Norvasc 5 mg daily - Lisinopril 40 mg daily 5. Hyperlipidemia - Statin 6. DMII: Well controlled diabetes since 2013 7. BPH PLAN: - Follow up with urology. No appointment currently scheduled - Continue current medications - Renal labs every 6 months - Follow up in 6 months SIGNATURE: Ángel Julio DO PATIENT NAME: Qian Pink DATE: August 08, 2021 TIME: 11:31 AM OFFICE NUMBER: [id number] CC: REFERRING PROVIDER: Rafael Ramirez APRN.DATA ANALYTICS ANALYST PRIMARY CARE PHYSICIAN: Jenae Savage [facility] Diagnosis Stage 3b chronic kidney disease (HCC)- Primary Renal cyst Unspecified congenital cystic kidney disease Anemia of renal disease 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) Secondary hyperparathyroidism (of renal origin) Essential hypertension Unspecified essential hypertension Hyperlipidemia, unspecified hyperlipidemia type [facility]* Diagnosis Screening for genitourinary condition- Primary Screening for other and unspecified genitourinary condition Monoclonal (M) protein disease, multiple 'M' protein- Primary Monoclonal paraproteinemia [facility]* Diagnosis Benign prostatic hyperplasia without lower urinary tract symptoms- Primary Screening for genitourinary condition Screening for other and unspecified genitourinary condition 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 Erectile dysfunction, unspecified erectile dysfunction type documented [facility]* Diagnosis Diarrhea, unspecified type- Primary [facility]* Diagnosis Diarrhea, unspecified type- Primary [facility]* Diagnosis Type 2 diabetes mellitus without complication, without long-term current use of insulin (HCC)- Primary Hyperlipidemia, unspecified hyperlipidemia type Stage 3b chronic kidney disease (HCC) Essential hypertension, benign Acute pulmonary embolism, unspecified pulmonary embolism type, unspecified whether acute cor pulmonale present ([facility]) Dermatitis Contact dermatitis and other eczema, due to unspecified cause Bilateral leg edema Edema [facility]* Diagnosis Benign prostatic hyperplasia without lower urinary tract symptoms- Primary Screening for genitourinary condition Screening for other and unspecified genitourinary condition 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 Stage 3b chronic kidney disease (HCC) [facility]* Diagnosis MGUS (monoclonal gammopathy of unknown significance)- Primary Monoclonal paraproteinemia [facility]* Diagnosis Stage 3b chronic kidney disease (HCC)- Primary [facility]* Diagnosis Stage 3b chronic kidney disease (HCC)- Primary Anemia of renal disease 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) Secondary hyperparathyroidism (of renal origin) Primary hypertension Unspecified essential hypertension Hyperlipidemia, unspecified hyperlipidemia type Benign prostatic hyperplasia without lower urinary tract symptoms MGUS (monoclonal gammopathy of unknown significance) Monoclonal paraproteinemia [facility] Diagnosis Stage 3b chronic kidney disease (HCC)- Primary Type 2 diabetes mellitus without complication, without long-term current use of insulin (HCC) Hyperlipidemia, unspecified hyperlipidemia type Essential hypertension, benign [facility]* Diagnosis Seasonal allergies- Primary Allergic rhinitis, cause unspecified [facility] Diagnosis Type 2 diabetes mellitus without complication, without long-term current use of insulin (HCC)- Primary Stage 3b chronic kidney disease (HCC) Hyperlipidemia, unspecified hyperlipidemia type Essential hypertension, benign ED (erectile dysfunction) of organic origin Impotence of organic origin [facility] Diagnosis MGUS (monoclonal gammopathy of unknown significance)- Primary Monoclonal paraproteinemia [facility] Diagnosis 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 [facility] Diagnosis Stage 3b chronic kidney disease (HCC)- Primary Anemia of renal disease 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) Secondary hyperparathyroidism (of renal origin) Primary hypertension Unspecified essential hypertension Hyperlipidemia, unspecified hyperlipidemia type Benign prostatic hyperplasia without lower urinary tract symptoms [facility] Diagnosis MGUS (monoclonal gammopathy of unknown significance)- Primary Monoclonal paraproteinemia [facility] Diagnosis MGUS (monoclonal gammopathy of unknown significance)- Primary Monoclonal paraproteinemia [facility] Diagnosis Essential hypertension, benign [facility] Diagnosis Acute cough [facility] Diagnosis Monoclonal gammopathy- Primary Monoclonal paraproteinemia [facility] Diagnosis Monoclonal gammopathy Monoclonal paraproteinemia documented in this encounter [facility] for referral (narrative)* Diagnostic Procedure Only (Routine) - Authorized Specialty Diagnoses / Procedures Referred By Sakina t Referred To Contact US IMAGING Diagnoses Congenital multiple renal cysts Procedures US KIDNEY/BLADDER US RETROPERITONEAL REAL TIME W/IMAGE COMPLETE Janusz Davenport MD [address] [facility], [facility] Us Imaging Referral ID Status Reason Start Date Expiration Date Visits Requested Visits Authorized [id number] Authorized Auto-Generat ed Referral 01/09/2022 09/09/2022 1 1 [facility] for referral (narrative)* Diagnostic Procedure Only (Routine) - Authorized Specialty Diagnoses / Procedures Referred By Contac t Referred To Contact US IMAGING Diagnoses Congenital multiple renal cysts Procedures US KIDNEY/BLADDER US RETROPERITONEAL REAL TIME W/IMAGE COMPLETE Janusz Davenport MD [address] [place] [address] Us Imaging Referral ID Status Reason Start Date Expiration Date Visits Requested Visits Authorized [id number] Authorized Auto-Generat ed Referral 01/11/2023 02/10/2023 1 1 [facility] for referral (narrative)* Diagnostic Procedure Only (Routine) - Closed Specialty Diagnoses / Procedures Referred By Contac t Referred To Contact US IMAGING Diagnoses Congenital multiple renal cysts Procedures US KIDNEY/BLADDER US RETROPERITONEAL [place] W/[place] [address] [place], [place] [id number] Us Imaging [place] [address] Referral ID Status Reason Start Date Expiration Date V isits Requested Visits Authorized [id number] Closed Auto-Generate d Referral 01/11/2023 02/10/2023 1 1 [facility] Summary Purpose Family History No Family History Records FoundNo Family History Records FoundNo Family History Records FoundNo Family History Records FoundNo Family History Records Found Advance Directives No Advanced Directives Records FoundNo Advanced Directives Records FoundNo Advanced Directives Records FoundNo Advanced Directives Records FoundNo Advanced Directives Records Found Reason for Referral Specialty Diagnoses / Procedures Referred By Contac t Referred To Contact Diagnoses Monoclonal (M) protein disease, multiple 'M' protein Procedures CONSULT TO HEMATOLOGY/ONCOLOGY OFFICE/OUTPATIENT NEW HIGH MDM 60-74 MINUTES Ángel Julio, [address] [place] [address] Referral ID Status Reason Start Date Expiration Date Visits Requested Visits Authorized [id number] Authorized PCP Requested Referral 08/10/2021 08/10/2022 1 1 Specialty Diagnoses / Procedures Referred By Contmarisela t Referred To Contact CT IMAGING Diagnoses Monoclonal gammopathy Procedures CT WHOLE BODY SKULL TO KNEE WO IVCON UNLISTED COMPUTED TOMOGRAPHY PROCEDURE CT HEART NO CONTRAST QUANT EVAL CORONRY CALCIUM Gary Kelly, DO [address] [place] [address] Ct Imaging [place] [address] Referral ID Status Reason Start Date Expiration Date Visits Requested Visits Authorized [id number] Authorized Auto-Generat ed Referral 12/31/2023 01/29/2025 1 1 Referral ID Status Reason Start Date Expiration Date V isits Requested Visits Authorized [id number] Closed Auto-Generate d Referral 12/31/2023 01/29/2025 1 1 Additional Source Comments (unrecognized sect ion and content) No Status Records FoundNo Status Records FoundNo Status Records FoundNo Status Records FoundNo Status Records Found INFORMATION SOURCE (unrecogn ized section and content) DATE CREATED AUTHOR 10/02/2017 [facility] DATE CREATED AUTHOR AUTHOR'S ORGANIZ ATION 06/27/2018 [facility] DATE CREATED AUTHOR AUTHOR'S ORGANIZ ATION 06/27/2018 [facility] DATE CREATED AUTHOR AUTHOR'S ORGANIZ ATION 01/15/2024 [facility] DATE CREATED AUTHOR AUTHOR'S ORGANIZ ATION 01/15/2024 [facility] Source Comments (unrecognize d section and content) In the event this informatio n is protected by the Federal Confidentiality of Alcohol and Drug Abuse Patient Records regulations: The Federal rules restrict any use of the information to criminally investigate or prosecute any alcohol or drug abuse patient.[facility] the event this information is protected by the Federal Confidentiality of Alcohol and Drug Abuse Patient Records regulations: The Federal rules restrict any use of the information to criminally investigate or prosecute any alcohol or drug abuse patient.[facility] the event this information is protected by the Federal Confidentiality of Alcohol and Drug Abuse Patient Records regulations: The Federal rules restrict any use of the information to criminally investigate or prosecute any alcohol or drug abuse patient.[facility] the event this information is protected by the Federal Confidentiality of Alcohol and Drug Abuse Patient Records regulations: The Federal rules restrict any use of the information to criminally investigate or prosecute any alcohol or drug abuse patient.[facility] the event this information is protected by the Federal Confidentiality of Alcohol and Drug Abuse Patient Records regulations: The Federal rules restrict any use of the information to criminally investigate or prosecute any alcohol or drug abuse patient.[facility] the event this information is protected by the Federal Confidentiality of Alcohol and Drug Abuse Patient Records regulations: The Federal rules restrict any use of the information to criminally investigate or prosecute any alcohol or drug abuse patient.[facility] the event this information is protected by the Federal Confidentiality of Alcohol and Drug Abuse Patient Records regulations: The Federal rules restrict any use of the information to criminally investigate or prosecute any alcohol or drug abuse patient.[facility] the event this information is protected by the Federal Confidentiality of Alcohol and Drug Abuse Patient Records regulations: The Federal rules restrict any use of the information to criminally investigate or prosecute any alcohol or drug abuse patient.[facility] the event this information is protected by the Federal Confidentiality of Alcohol and Drug Abuse Patient Records regulations: The Federal rules restrict any use of the information to criminally investigate or prosecute any alcohol or drug abuse patient.[facility] the event this information is protected by the Federal Confidentiality of Alcohol and Drug Abuse Patient Records regulations: The Federal rules restrict any use of the information to criminally investigate or prosecute any alcohol or drug abuse patient.[facility] the event this information is protected by the Federal Confidentiality of Alcohol and Drug Abuse Patient Records regulations: The Federal rules restrict any use of the information to criminally investigate or prosecute any alcohol or drug abuse patient.[facility] the event this information is protected by the Federal Confidentiality of Alcohol and Drug Abuse Patient Records regulations: The Federal rules restrict any use of the information to criminally investigate or prosecute any alcohol or drug abuse patient.[facility] the event this information is protected by the Federal Confidentiality of Alcohol and Drug Abuse Patient Records regulations: The Federal rules restrict any use of the information to criminally investigate or prosecute any alcohol or drug abuse patient.[facility] the event this information is protected by the Federal Confidentiality of Alcohol and Drug Abuse Patient Records regulations: The Federal rules restrict any use of the information to criminally investigate or prosecute any alcohol or drug abuse patient.[facility] the event this information is protected by the Federal Confidentiality of Alcohol and Drug Abuse Patient Records regulations: The Federal rules restrict any use of the information to criminally investigate or prosecute any alcohol or drug abuse patient.[facility] the event this information is protected by the Federal Confidentiality of Alcohol and Drug Abuse Patient Records regulations: The Federal rules restrict any use of the information to criminally investigate or prosecute any alcohol or drug abuse patient.[facility] the event this information is protected by the Federal Confidentiality of Alcohol and Drug Abuse Patient Records regulations: The Federal rules restrict any use of the information to criminally investigate or prosecute any alcohol or drug abuse patient.[facility] the event this information is protected by the Federal Confidentiality of Alcohol and Drug Abuse Patient Records regulations: The Federal rules restrict any use of the information to criminally investigate or prosecute any alcohol or drug abuse patient.[facility] the event this information is protected by the Federal Confidentiality of Alcohol and Drug Abuse Patient Records regulations: The Federal rules restrict any use of the information to criminally investigate or prosecute any alcohol or drug abuse patient.[facility] the event this information is protected by the Federal Confidentiality of Alcohol and Drug Abuse Patient Records regulations: The Federal rules restrict any use of the information to criminally investigate or prosecute any alcohol or drug abuse patient.[facility] the event this information is protected by the Federal Confidentiality of Alcohol and Drug Abuse Patient Records regulations: The Federal rules restrict any use of the information to criminally investigate or prosecute any alcohol or drug abuse patient.[facility] the event this information is protected by the Federal Confidentiality of Alcohol and Drug Abuse Patient Records regulations: The Federal rules restrict any use of the information to criminally investigate or prosecute any alcohol or drug abuse patient.[facility] the event this information is protected by the Federal Confidentiality of Alcohol and Drug Abuse Patient Records regulations: The Federal rules restrict any use of the information to criminally investigate or prosecute any alcohol or drug abuse patient.[facility] the event this information is protected by the Federal Confidentiality of Alcohol and Drug Abuse Patient Records regulations: The Federal rules restrict any use of the information to criminally investigate or prosecute any alcohol or drug abuse patient.[facility] the event this information is protected by the Federal Confidentiality of Alcohol and Drug Abuse Patient Records regulations: The Federal rules restrict any use of the information to criminally investigate or prosecute any alcohol or drug abuse patient.[facility] the event this information is protected by the Federal Confidentiality of Alcohol and Drug Abuse Patient Records regulations: The Federal rules restrict any use of the information to criminally investigate or prosecute any alcohol or drug abuse patient.[facility] the event this information is protected by the Federal Confidentiality of Alcohol and Drug Abuse Patient Records regulations: The Federal rules restrict any use of the information to criminally investigate or prosecute any alcohol or drug abuse patient.[facility] the event this information is protected by the Federal Confidentiality of Alcohol and Drug Abuse Patient Records regulations: The Federal rules restrict any use of the information to criminally investigate or prosecute any alcohol or drug abuse patient.[facility] the event this information is protected by the Federal Confidentiality of Alcohol and Drug Abuse Patient Records regulations: The Federal rules restrict any use of the information to criminally investigate or prosecute any alcohol or drug abuse patient.[facility] the event this information is protected by the Federal Confidentiality of Alcohol and Drug Abuse Patient Records regulations: The Federal rules restrict any use of the information to criminally investigate or prosecute any alcohol or drug abuse patient.[facility] the event this information is protected by the Federal Confidentiality of Alcohol and Drug Abuse Patient Records regulations: The Federal rules restrict any use of the information to criminally investigate or prosecute any alcohol or drug abuse patient.[facility] the event this information is protected by the Federal Confidentiality of Alcohol and Drug Abuse Patient Records regulations: The Federal rules restrict any use of the information to criminally investigate or prosecute any alcohol or drug abuse patient.[facility] Reason for Visit (unrecogniz ed section and content) Specialty Diagnoses / Procedures Referred By Contac t Referred To Contact Nephrology Diagnoses Stage 3b chronic kidney disease (HCC) Renal cyst Procedures CONSULT TO NEPHROLOGY OFFICE/OUTPATIENT NEW HIGH MDM 60-74 MINUTES Rafael Ramirez APRN.DATA ANALYTICS ANALYST [address] [place] [address] Referral ID Status Reason Start Date Expiration Date V isits Requested Visits Authorized [id number] Closed PCP Requested Referral 05/27/2021 05/27/2022 1 1 Reason Comments Results Reason Comments Established Patient BPH, kidney cyst Reason Comments Patient Question Orders Reason Comments Results Orders Reason Comments F/U 6 months Reason Comments Established Patient Reason Comments Follow Up Reason Comments F/U 6 Month Reason Comments Acute Visit ?cold or sinus sx Reason Comments Results Chest Xray Reason Comments New Patient Reason Comments Radiology US Specialty Diagnoses / Procedures Referred By Contac t Referred To Contact US IMAGING Diagnoses Congenital multiple renal cysts Procedures US KIDNEY/BLADDER US RETROPERITONEAL REAL TIME W/IMAGE COMPLETE Janusz Davenport MD [address] [place] [address] [place] [address] Referral ID Status Reason Start Date Expiration Date V isits Requested Visits Authorized [id number] Closed Auto-Generate d Referral 01/11/2023 02/10/2023 1 1 Reason Comments Follow Up Stage 3B CKD Reason Comments Follow Up 6 month Reason Comments Refill Request Reason Comments Established Patient Specialty Diagnoses / Procedures Referred By Contac t Referred To Contact CT IMAGING Diagnoses Monoclonal gammopathy Procedures CT WHOLE BODY SKULL TO KNEE WO IVCON UNLISTED COMPUTED TOMOGRAPHY PROCEDURE CT HEART NO CONTRAST QUANT EVAL CORONRY CALCIUM Gary Kelly, DO [address] [place] [address] [place] [address] Referral ID Status Reason Start Date Expiration Date V isits Requested Visits Authorized [id number] Closed Auto-Generate d Referral 12/31/2023 01/29/2025 1 1 Reason Comments Results Care Teams (unrecognized sec tion and content) Plan Manager Relationship Specialty Start Date End Date Jenae Savage MD [address] [place] [address] PCP - General Family Practice 12/04/16 Radha, Ralph S [address] [place] [address] Specialty Towel Hemmer Cardiology 06/25/18 Juan Manuel Alvarado MD [address] [place] [address] Specialty [facility]el [facility] Cardiology 06/26/18 Plan Manager Relationship Specialty Start Date End Date Jenae Savage MD [address] [facility] [address] PCP - General Family Practice 12/04/16 Radha, Ralph S [address] [place] [address] Specialty [facility]el [facility] Cardiology 06/25/18 Juan Manuel Alvarado MD [address] [place] [address] Specialty [facility]el [facility] Cardiology 06/26/18 Plan Manager Relationship Specialty Start Date End Date Jenae Savage MD [address] [facility] [address] PCP - General Family Practice 12/04/16 Radha, [place] S [address] [place] [address] Specialty [facility] Cardiology 06/25/18 Juan Manuel Alvarado MD [address] [place] [address] Specialty [facility]el [facility] Cardiology 06/26/18 Plan Manager Relationship Specialty Start Date End Date Jenae Savage MD [address] [facility] [address] PCP - General Family Practice 12/04/16 Radha, [place] S [address] [place] [address] Specialty [facility]el [facility] Cardiology 06/25/18 Juan Manuel Alvarado MD [address] [place] [address] Specialty [facility]el [facility] Cardiology 06/26/18 Plan Manager Relationship Specialty Start Date End Date Jenae Savage MD [address] [place] [address] PCP - General Family Practice 12/04/16 Radha, [place] S [address] [place] [address] Specialty [facility]el Hemmer Cardiology 06/25/18 Juan Manuel Alvarado MD [address] [place] [address] Specialty [facility]el Hem[facility] Cardiology 06/26/18 Plan Manager Relationship Specialty Start Date End Date Jenae Savage MD [address] [place] [address] PCP - General Family Practice 12/04/16 Radha, Ralph S [address] [place] [address] Specialty [facility]el Hem[facility] Cardiology 06/25/18 Juan Manuel Alvarado MD [address] [place] [address] Specialty [facility]el [facility] Cardiology 06/26/18 Plan Manager Relationship Specialty Start Date End Date Jenae Savage MD [address] [place] [address] PCP - General Family Practice 12/04/16 Radha, Ralph S [address] [place] [address] Specialty [facility]el [facility] Cardiology 06/25/18 Juan Manuel Alvarado MD [address] [place] [address] Specialty Towel [facility] Cardiology 06/26/18 Plan Manager Relationship Specialty Start Date End Date Jenae Savage MD [address] [place] [address] PCP - General Family Medicine 12/04/16 Radha, Ralph S [address] [place] [address] Specialty [facility]el [facility] Cardiology 06/25/18 Juan Manuel Alvarado MD [address] [place] [address] Specialty Towel Hemmer Cardiology 06/26/18 Plan Manager Relationship Specialty Start Date End Date Jenae Savage MD [address] [place] [address] PCP - General Family Medicine 12/04/16 Radha, Ralph S [address] [place] [address] Specialty [facility]el Hem[facility] Cardiology 06/25/18 Juan Manuel Alvarado MD [address] [place] [address] Specialty [facility]el [facility] Cardiology 06/26/18 Plan Manager Relationship Specialty Start Date End Date Jenae Savage MD [address] [place] [address] PCP - General Family Medicine 12/04/16 Radha, Ralph S [address] [place] [address] Specialty [facility]el [facility] Cardiology 06/25/18 Juan Manuel Alvarado MD [address] [place] [address] Specialty [facility]el Hemmer Cardiology 06/26/18 Plan Manager Relationship Specialty Start Date End Date Jenae [place] MD [address] [facility] [address] PCP - General Family Medicine 12/04/16 Radha, [place] S [address] [place] [address] Specialty [facility]el [facility] Cardiology 06/25/18 Juan Manuel Alvarado MD [address] [place] [address] Specialty Towel Hemmer Cardiology 06/26/18 Plan Manager Relationship Specialty Start Date End Date Jenae [place] MD [address] [facility] [address] PCP - General Family Medicine 12/04/16 Radha, [place] S [address] [place] [address] Specialty [facility]el Hem[facility] Cardiology 06/25/18 Juan Manuel Alvarado MD [address] [place] [address] Specialty Towel Hemmer Cardiology 06/26/18 Plan Manager Relationship Specialty Start Date End Date Jenae Savage MD [address] [facility] [address] PCP - General Family Medicine 12/04/16 Radha, [place] S [address] [place] [address] Specialty [facility]el [facility] Cardiology 06/25/18 Juan Manuel Alvarado MD [address] [place] [address] Specialty Towel Hemmer Cardiology 06/26/18 Plan Manager Relationship Specialty Start Date End Date Jenae Savage MD [address] [place] [address] PCP - General Family Medicine 12/04/16 Radha, Ralph S [address] [place] [address] Specialty [facility]el [facility] Cardiology 06/25/18 Juan Manuel Alvarado MD [address] [place] [address] Specialty Towel Hemmer Cardiology 06/26/18 Plan Manager Relationship Specialty Start Date End Date Jenae Savage MD [address] [place] [address] PCP - General Family Medicine 12/04/16 Radha, Ralph S [address] [place] [address] Specialty [facility]el [facility] Cardiology 06/25/18 Juan Manuel Alvarado MD [address] [place] [address] Specialty Towel Hem[facility] Cardiology 06/26/18 Plan Manager Relationship Specialty Start Date End Date Jenae Savage MD [address] [place] [address] PCP - General Family Medicine 12/04/16 Radha, Ralph S [address] [place] [address] Specialty [facility]el [facility] Cardiology 06/25/18 Juan Manuel Alvarado MD [address] [place] [address] Specialty Towel Hemmer Cardiology 06/26/18 Plan Manager Relationship Specialty Start Date End Date Jenae [place] MD [address] [place] [address] PCP - General Family Medicine 12/04/16 Ralph Garcia [address] [place] [address] Specialty [facility]el [facility] Cardiology 06/25/18 Juan Manuel Alvarado MD [address] [place] [address] Specialty Towel Hemmer Cardiology 06/26/18 Plan Manager Relationship Specialty Start Date End Date Jenae Savage MD [address] [place] [address] PCP - General Family Medicine 12/04/16 Ralph Garcia [address] [address] Specialty [facility]el [facility]mer Cardiology 06/25/18 Juan Manuel Alvarado MD [address] [place] [place] [address] Specialty Towel Hemmer Cardiology 06/26/18 Plan Manager Relationship Specialty Start Date End Date Jenae [place] MD [address] [place] [address] PCP - General Family Medicine 12/04/16 Ralph Garcia MD [address] [address] Specialty [facility]el [facility] Cardiology 06/25/18 Juan Manuel Alvarado MD [address] [place] [address] Specialty Towel Hemmer Cardiology 06/26/18 Plan Manager Relationship Specialty Start Date End Date Jenae [place] MD [address] [place] [address] PCP - General Family Medicine 12/04/16 Ralph Garcia MD [address] [address] Specialty Towel Hemmer Cardiology 06/25/18 Juan Manuel Alvarado MD [address] [place] [phone] (Fax) Specialty Towel Hemmer Cardiology 06/26/18 Plan Manager Relationship Specialty Start Date End Date Jenae [place] MD [address] [place] [address] PCP - General Family Medicine 12/04/16 Ralph Garcia MD [address] [address] Specialty Towel Hemmer Cardiology 06/25/18 Juan Manuel Alvarado MD [address] [place] [address] Specialty Towel Hemmer Cardiology 06/26/18 Plan Manager Relationship Specialty Start Date End Date Jenae [place] MD [address] [place] [address] PCP - General Family Medicine 12/04/16 Ralph Garcia MD [address] [place] [address] Specialty Towel Hemmer Cardiology 06/25/18 Juan Manuel Alvarado MD [address] [place] [address] Specialty Towel Hemmer Cardiology 06/26/18 Plan Manager Relationship Specialty Start Date End Date Jenae Savage MD [address] [place] [address] PCP - General Family Medicine 12/04/16 Ralph Garcia MD [address] [place] [address] Specialty Towel Hemmer Cardiology 06/25/18 Juan Manuel Alvarado MD [address] [place] [address] Specialty Towel Hemmer Cardiology 06/26/18 Plan Manager Relationship Specialty Start Date End Date Jenae Savage MD [address] [place] [address] PCP - General Family Medicine 12/04/16 Ralph Garcia MD [address] [place] [address] Specialty Towel Hemmer Cardiology 06/25/18 Juan Manuel Alvarado MD [address] [place] [address] Specialty Towel Hemmer Cardiology 06/26/18 Plan Manager Relationship Specialty Start Date End Date Jenae Savage MD [address] [place] [address] PCP - General Family Medicine 12/04/16 Ralph Garcia MD [address] [place] [address] Specialty Towel Hemmer Cardiology 06/25/18 Juan Manuel Alvarado MD [address] [place] [address] [phone] Specialty Towel Hemmer Cardiology 06/26/18 Plan Manager Relationship Specialty Start Date End Date Jenae Savage MD [address] [place] [address] PCP - General Family Medicine 12/04/16 Ralph Garcia MD [address] [place] [address] Specialty Towel Hemmer Cardiology 06/25/18 Juan Manuel Alvarado MD [address] [place] [address] Specialty Towel Hemmer Cardiology 06/26/18 Plan Manager Relationship Specialty Start Date End Date Jenae Savage MD [address] [place] [address] PCP - General Family Medicine 12/04/16 Ralph Garcia MD [address] [place] [address] Specialty Towel Hemmer Cardiology 06/25/18 Juan Manuel Alvarado MD [address] [place] [phone] (Fax) Specialty Towel Hemmer Cardiology 06/26/18 Plan Manager Relationship Specialty Start Date End Date Jenae Savage MD [address] [place] [address] PCP - General Family Medicine 12/04/16 Ralph Garcia MD [address] [place], [place] [phone] Specialty [facility]el Hemmer Cardiology 06/25/18 Juan Manuel Alvarado MD [address] [place] [address] (Fax) Specialty [facility]el Hemmer Cardiology 06/26/18 Janusz Davenport MD [address] [place], [place] [id number] Urology 12/31/23 Ángel Julio DO [address] [place] [address] Nephrology 12/31/23 Plan Manager Relationship Specialty Start Date End Date Jenae Savage MD [address] [place], [place] [id number] PCP - General Family Medicine 12/04/16 Ralph Garcia MD [address] [place], [place] [phone] Specialty [facility]el Hemmer Cardiology 06/25/18 Juan Manuel Alvarado MD [address] [place] [address] (Fax) Specialty Towel Hemmer Cardiology 06/26/18 Janusz Davenport MD [address] [place] [address] Urology 12/31/23 Ángel Julio DO [address] [place], [place] [id number] Nephrology 12/31/23 Plan Manager Relationship Specialty Start Date End Date Jenae Savage MD [address] [place], [place] [id number] PCP - General Family Medicine 12/04/16 Ralph Garcia MD [address] [id number] Specialty Towel Hemmer Cardiology 06/25/18 Juan Manuel Alvarado MD [address] [place] [address] Specialty Towel Hemmer Cardiology 06/26/18 Janusz Davenport MD [address] [place] [address] Urology 12/31/23 Ángel Julio DO [address] [place] [address] Nephrology 12/31/23 FOR RECORDS PERTAINING TO PATIENTS WHO ARE OR HAVE BEEN ENROLLED IN A CHEMICAL DEPENDENCY/SUBSTANCEABUSE PROGRAM, SOME INFORMATION MAY BE OMITTED. This clinical summary was aggregated from multiple sources. Caution should be exercised in using it in the provision of clinical care. This summary normalizes information from multiple sources, and as a consequence, information in this document may materially change the coding, format and clinical context of patient data. In addition, data may be omitted in some cases. CLINICAL DECISIONS SHOULD BE BASED ON THE PRIMARY CLINICAL RECORDS. [employer] [facility]. provides no warranty or guarantee of the accuracy or completeness of information in this document.
[2024-02-03 14:04] LABS: Absolute Lymphocyte Count 0.29 X10^3/uL (0.83-4.51); Absolute Neutrophil Count 7.5 X10^3/uL (2.0-7.7); Basophil# 0.01 X10^3/uL; Basophil% 0.1 % (0-1); Eosinophil# 0.02 X10^3/uL; Eosinophils% 0.2 % (0-5); Hematocrit 43.9 % (40-54); Hemoglobin 14.2 g/dL (13.0-16.5); Lymphocyte # 0.29 X10^3/ul (0.83-4.51); Lymphocyte % 3.6 % (19-41); Mean Corp Hgb Conc 32.3 g/dL (32-36); Mean Corpuscular Volume 86.4 fL (80-94); Mean Platelet Vol. 10.6 fl (6.2-12.0); Monocyte# 0.16 X10^3/uL; NRBC Flagged by Analyzer 0 % (0-5); Neutrophil # 7.52 X10^3/uL (2.7-7.7); Neutrophil % 93.9 % (47-70); POSITIVE DIFFERENTIAL YES; Platelet Count 169 K/mm3 (150-450); RBC Distribution Width CV 13.5 % (11.6-14.6); Red Blood Count 5.08 M/mm3 (4.6-6.2)
[2024-02-03] MEDS: Ondansetron 4 MG/2 ML Vial IV ×2 (14:04→15:29)
[2024-02-03] MEDS: 0.9% Normal Saline (1000mL) 1,000 ML 999 ML IV (14:04)
[2024-02-03] MEDS: Morphine 4 MG/ML Syringe IV ×2 (14:05→14:38)
[2024-02-03 14:20] LABS: ALB/GLOB Ratio 1.1 RATIO (0.9-2.4); AST(SGOT) 18 U/L (15-37); Alanine Aminotransfer ALT/SGPT 27 U/L (16-61); Alkaline Phosphatase 54 U/L (45-117); Anion Gap 5 (5-15); BUN 35 mg/dL (7-18); BUN/Creat Ratio 18.5 RATIO (10-20); Calcium,Total 9.4 mg/dL (8.5-10.1); Chloride 112 mmol/L (98-107); Creatinine, Serum 1.89 mg/dL (0.70-1.30); EST Glomerular Filtration Rate 36 mL/min (>60); Est Glom Filt Rate - Afr Amer 44 mL/min (>60); Estimated Creatinine Clearance 30.04 ml/min; Globulin 3.7 g/dL (2.2-4.2); Glucose 178 mg/dL (74-106); Lipase 26 U/L (13-75); Potassium 4.2 mmol/L (3.5-5.1); Protein, Total 7.7 g/dL (6.4-8.2); Sodium Level 141 mmol/L (136-145)
[2024-02-03 15:04] VITALS: BP 165/69; PULSE 78; RESP 19
[2024-02-03] MEDS: HYDROmorphone 1 MG/ML Syringe 0.5 MG IV (15:29)
[2024-02-03 16:03] LABS: Color, Urine Brown (Yellow); Glucose, Dipstick Normal (Normal); Ketone-Dipstick 15 mg/dl (Negative); Leukocyte Esterase-Dipstick 25 /ul (Negative); Nitrite-Dipstick Positive (Negative); Occult Blood-Urine 250 /ul (Negative); Protein-Dipstick 30 mg/dl (Negative); Specific Gravity, Urine 1.015 (1.002-1.030); Urine Bilirubin Dipstick Negative (Negative); Urine Clarity Turbid (Clear); Urine Urobilinogen Normal (Normal)
[2024-02-03 16:13] LABS: Bacteria 3+ /hpf (None Seen); Hyaline Cast 0-5 SEEN /lpf (0-5); Mucous, Urine 2+ /hpf (<or=2+); Red Blood Cells-Urine > 100 SEEN /hpf (0-5); Squamous Epithelial Cells - UA 0-5 SEEN /hpf (0-5); White Blood Cells 0-5 SEEN /hpf (0-5); Yeast-Urine 1+ /hpf (None Seen)
[2024-02-03 17:00] VITALS: BP 149/61; PULSE 77; RESP 18
[2024-02-03 17:28] VITALS: BP 142/78; PULSE 77; RESP 18; TEMP 36.8; O2SAT 97
== END 2024-02-03 17:39 | disposition home or self-care (01) ==
PROVIDERS: Emergency Provider Emergency Medicine; PCP Family Medicine; Visit Provider Emergency Medicine
DX: N13.2 Hydronephrosis with renal and ureteral calculous obstruction (principal); E11.9 Type 2 diabetes mellitus without complications; I10 Essential (primary) hypertension; E78.5 Hyperlipidemia, unspecified; N28.1 Cyst of kidney, acquired; Z79.82 Long term (current) use of aspirin; Z90.49 Acquired absence of other specified parts of digestive tract; Z86.711 Personal history of pulmonary embolism; Z79.899 Other long term (current) drug therapy
CPT/HCPCS: 74177; 80053; 81001; 83690; 85025; 96361; 96374; 96375; 96376; 99282; J7030; Q9967; A4216; J2405

== ENCOUNTER 2024-02-05 05:02 | Emergency (ER) | payer MEDICARE, OTHER, SELFPAY ==
[2024-02-05 05:03] VITALS: BP 144/62; PULSE 60; RESP 16; TEMP 36.3; O2SAT 97; BMI 28.8
--- NOTE | 2024-02-05 05:06 | EDS_ITS ---
HPI History of Present Illness Chief Complaint: Flank Pain [facility] Medical History Cyst of kidney, acquired Pulmonary embolism Essential (primary) hypertension Contact dermatitis First degree AV block Accelerated junctional rhythm Hyperlipidemia Syncope and collapse (05/2018) Bronchitis Sinusitis Diabetes Hx of fever Home Medications ?Medication ?Instructions ?Recorded ?Last Taken ?Type [id number] 300 mcg-K 60 1 tab PO DAILY vitamin 04/11/17 05/21/18 History mcg-lycop 600 mcg-lutein 300 mcg tablet (Centrum Silver Men) tadalafil 20 mg tablet 20 mg PO DAILY PRN Erectile 02/26/19 Unknown History Dysfunction ondansetron 4 mg disintegrating 4 mg PO Q6H PRN nausea and 09/07/21 Unknown Rx tablet vomiting #10 tabs cholecalciferol (vitamin D3) 50 50 mcg PO DAILY 11/02/21 Unknown History mcg (2,000 unit) capsule aspirin 81 mg tablet,delayed 81 mg PO DAILY #90 tabs 03/22/22 Unknown Rx release (Adult Aspirin Regimen) cetirizine 10 mg tablet 10 mg PO DAILY PRN allergy symptoms 01/24/23 Unknown History pantoprazole 40 mg tablet,delayed 40 mg PO DAILY 01/24/23 Unknown History release amlodipine 10 mg tablet 10 mg PO DAILY #90 tabs 01/24/24 Unknown Rx doxazosin 4 mg tablet 4 mg PO QHS #90 tabs 01/24/24 Unknown Rx losartan 50 mg tablet 50 mg PO DAILY #90 tabs 01/24/24 Unknown Rx simvastatin 20 mg tablet See Rx Instructions .Route 01/24/24 Unknown Rx .COMPLEX #90 tabs oxycodone-acetaminophen 5 mg-325 1 tab PO Q6H PRN PRN Pain 3 days 02/03/24 Unknown Rx mg tablet #12 TABLETS hydrocodone-acetaminophen 5-325mg 1 tab PO Q6H PRN PRN Pain 3 days 02/05/24 Unknown Rx 5mg-325mg #12 TABLETS ondansetron 4 mg disintegrating 4 mg PO Q8H PRN PRN Nausea #10 tabs 02/05/24 Unknown Rx tablet Allergy/AdvReac Type Severity Reaction Status Date / Time lisinopril AdvReac Intermediate Dry Verified 02/05/24 05:03 persistent cough Family History Mother Diabetes CVA (cerebral vascular accident) Father Diabetes Heart disease Surgical History Hx of cholecystectomy Social History Smoking Status: Never smoker alcohol intake: never EXAM Physical Exam Const Vital Signs: 02/05/24 05:03 02/05/24 07:03 02/05/24 07:12 Temperature 97.4 F L 98.2 F Temperature Source Oral Pulse Rate 60 56 L 60 Respiratory Rate 16 18 16 Blood Pressure 144/62 H 146/63 H 146/63 H Blood Pressure Mean 89 90 90 Pulse Ox 97 97 97 Oxygen Delivery Method Room Air Room Air [facility] MDM Narrative Medical decision making narrative: HISTORY OF PRESENT ILLNESS: 83 M here with flank pain. Diagnosed kidney stone Sunday. Notes worsening pain today despite taking oxycodone at approximately 2 AM. REVIEW OF SYSTEMS: Pertinent positives: Flank pain Pertinent negatives: Vomiting, diarrhea PHYSICAL EXAM: Nursing triage notes reviewed, Vital signs reviewed Constitutional: please see mdm HENT: MMM Eyes: Pupils equal round and reactive to light, Extraocular muscles intact Neck: No stridor, no JVD, full neck ROM Lungs: Clear to auscultation, No wheezing or rales. No increased work of breathing, no conversational dyspnea, no accessory muscle use, no nasal flaring. No respiratory distress noted Heart: Regular rate and rhythm, No murmurs, No rubs and No gallops, 2+ distal pulses (radial, femoral, posterior tibial) in all extremities Abdomen: Soft, there is no tenderness, rigidity, rebound or guarding, no obvious peritoneal signs, no palpable pulsatile abdominal masses, no auscultated abdominal bruit : No CVAT Extremities: No edema Neuro: No focal neurological deficits, cranial nerves II through XII intact, 5/5 strength in all extremities. Intact sensation to light touch in all extremities, 2+ reflexes bilateral patella tendons. Normal gait. No ataxia. Skin: No rash or lesions noted MEDICAL DECISION MAKING: Chief Complaint: Flank pain External records reviewed: It is reviewed prior imaging: Reviewed CT scan from 02/03/2024 showed a 5 mm left UVJ stone Factors affecting care: nephrolithiasis, hyperlipidemia, hypertension Social determinants of health: none History obtained from others: none Consults: none [facility] Narrative: Patient was hemodynamically stable, afebrile and nontoxic-appearing. Exam with left TTP. I considered the following differential diagnosis: Nephrolithiasis, pyelonephritis, AAA ALL IMAGES (IF OBTAINED) HAVE BEEN PERSONALLY REVIEWED AND INTERPRETED BY MYSELF. Urinalysis shows no evidence of urinary inflammation suggestive of UTI CBC without leukocytosis, severe anemia, no thrombocytopenia. BMP without significant electrolyte abnormalities, no evidence of metabolic acidosis or endorgan hypoperfusion with a normal bicarb and anion gap, noted slightly worsening in kidney function CT scan abdomen pelvis shows a 4 mm calculus at the UVJ Upon reassessment patient noted he is completely asymptomatic after morphine and Toradol. Noted worsening renal function however he appeared well, had no nausea, vomiting, had no fever, had no white count. The patient noted said felt completely better/asymptomatic. I suspect he may have passed the kidney stone. He was tolerating PO I feel the patient is appropriate discharge home with encouragement to increase p.o. intake, I switched his narcotic pain medicine from oxycodone to hydrocodone. I encouraged her to take Tylenol and ibuprofen as baseline pain control. Also wrote Zofran to take as needed for nausea and vomiting to attempt to continue pain control at home. The patient and/or family, caregivers express understanding. The patient and/or family, caregivers agrees with the plan. Shared decision making: I will have a discussion with the patient and or visitors regarding risk/be nefits of further testing or admission. They will be made aware of of the risk/benefits inherent in this decision they will be given the opportunity to voice understanding. Total critical care time today provided was at least 0 minutes. This excludes separately billable procedures. Critical care time (if documented) is secondary to the patient having high probability of clinically significant/life threatening deterioration in the patient's condition which required my urgent intervention. Impression: 1. Kidney stone 2. Acute flank pain 3. Acute kidney injury Dispo: Discharge home This note was generated with Stylistpick dictation software. It may contain incorrect words, spelling, and punctuation that were not noted in review of the chart prior to signing. Lab Data Labs: Laboratory Results - last 24 hr 02/05/24 02/05/24 05:05 06:07 WBC 8.0 RBC 4.71 Hgb 13.3 Hct 40.9 MCV 86.8 MCH 28.2 MCHC 32.5 RDW Std Deviation 43.6 RDW Coeff of David 13.7 Plt Count 162 MPV 10.7 Immature Gran % (Auto) 0.500 Neut % (Auto) 80.3 H Lymph % (Auto) 10.3 L Whitley % (Auto) 5.9 Eos % (Auto) 2.6 Baso % (Auto) 0.4 Absolute Neuts (auto) 6.5 Absolute Lymphs (auto) 0.83 Nucleated RBC % 0 Sodium 137 Potassium 4.0 Chloride 109 H Carbon Dioxide 23.0 Anion Gap 5 BUN 36 H Creatinine 2.17 H Estim Creat Clear Calc 28.79 Est GFR (MDRD) Af Amer 37 L Est GFR (MDRD) Non-Af 31 L BUN/Creatinine Ratio 16.6 Glucose 146 H Calcium 9.2 Urine Color Yellow Urine Clarity Clear Urine pH 6.0 Ur Specific Bushnell 1.020 Urine Protein 15 H Urine Glucose (UA) Normal Urine Ketones 5 H Urine Occult Blood Negative Urine Nitrite Negative Urine Bilirubin Negative Urine Urobilinogen Normal Ur Leukocyte Esterase Negative Urine RBC 0 SEEN Urine WBC 0 SEEN Ur Squamous Epith Cells 0-5 SEEN Urine Bacteria 0 SEEN Urine Mucus 0 SEEN Radiography Diagnostic Testing: Clinical Impression(s) from Imaging Studies Abdomen/Pelvis CT 02/05/24 05:09 IMPRESSION: 1. Stable 4 mm stone in the left ureterovesical junction and stable moderate left hydronephrosis as compared to 02/03/2024. 2. 2.2 cm indeterminate cystic lesion in the lower pole of the right kidney, new as compared to 09/06/2021. Recommend follow-up with routine MRI with dedicated renal protocol. 3. Enlarged prostate with mass effect on the urinary bladder. Electronically Signed: Mihai Martinez DO at 6:41 EDT , Discharge Plan Triage Chief Complaint: Flank Pain ED Provider: Fredy Stoll Dx/Rx/DC Orders Instructions: ED Kidney Stone with Pain Prescriptions: New ondansetron 4 mg tablet,disintegrating 4 mg PO Q8H PRN PRN (Reason: Nausea) Qty: 10 0RF hydrocodone-acetaminophen 5-325 mg tablet 1 tab PO Q6H PRN PRN (Reason: Pain) 3 Days Qty: 12 0RF No Action [id number] [Centrum Silver Men] 300-600-300 mcg tablet 1 tab PO DAILY tadalafil 20 mg tablet 20 mg PO DAILY PRN (Reason: Erectile Dysfunction) cholecalciferol (vitamin D3) 50 mcg (2,000 unit) capsule 50 mcg PO DAILY pantoprazole 40 mg tablet,delayed release (DR/EC) 40 mg PO DAILY cetirizine 10 mg tablet 10 mg PO DAILY PRN (Reason: allergy symptoms) amlodipine 10 mg tablet 10 mg PO DAILY Qty: 90 3RF doxazosin 4 mg tablet 4 mg PO QHS Qty: 90 3RF losartan 50 mg tablet 50 mg PO DAILY Qty: 90 3RF simvastatin 20 mg tablet See Rx Instructions .ROUTE .COMPLEX Qty: 90 3RF Dose Instruction: TAKE 1 TABLET DAILY FOR CHOLESTEROL Rx Instructions: TAKE 1 TABLET DAILY FOR CHOLESTEROL ondansetron 4 mg tablet,disintegrating 4 mg PO Q6H PRN (Reason: nausea and vomiting) Qty: 10 0RF oxycodone-acetaminophen 5-325 mg tablet 1 tab PO Q6H PRN PRN (Reason: Pain) 3 Days Qty: 12 0RF aspirin [Adult Aspirin Regimen] 81 mg tablet,delayed release (DR/EC) 81 mg PO DAILY Qty: 90 3RF Primary Care Provider: Jeremiah Savage Referrals: Jeremiah Savage MD [Primary Care Provider] - Activity Restrictions/Additional Instructions: Thank you for trusting us with your care today! Please take Tylenol (2 pills, 650 mg), ibuprofen (2 pills, 400 mg) every 6 hours as needed for pain and fever control. Please take prescribed narcotic pain medicine for breakthrough pain only. Please keep in mind that your narcotic pain medication is formally with Tylenol. Please not take Tylenol and your narcotic at the same time. Narcotics can cause constipation. While on the narcotic pain medicine please take MiraLAX daily. Please take Zofran as needed for nausea and vomiting. Please return to the emergency department if your symptoms change or worsen. Specifically develop severe pain, vomiting. Please follow with your primary care physician for further outpatient evaluation and management. Print Language: [place] Disposition Disposition: Home, Self Care Discharge Date/Time: 02/05/24 07:14
--- NOTE | 2024-02-05 05:09 | CT_ITS ---
INDICATION: Kidney Stone EXAMINATION: CT Abdomen And Pelvis W/O Contrast Injection TECHNIQUE: Helically acquired images were obtained of the abdomen and pelvis with sagittal and coronal reconstructed images. Individualized dose optimization techniques were used for this CT. IV contrast dosage and agent: None. Oral contrast: None. COMPARISON: 02/03/2024 CT. FINDINGS: VESSELS: No abdominal aortic aneurysm. LIVER: No intrahepatic or extrahepatic biliary duct dilation. GALLBLADDER: Status post cholecystectomy. PANCREAS: No evidence of a mass. No evidence of pancreatitis. SPLEEN: Normal. ADRENAL GLANDS: Normal. KIDNEYS AND URETERS: Stable 4 mm stone in the left ureterovesical junction. Stable moderate left hydronephrosis. No significant asymmetric perinephric stranding. Stable simple bilateral renal cysts with no follow-up recommended. 2.2 cm indeterminate cystic lesion in the lower pole of the right kidney, new as compared to 09/06/2021. URINARY BLADDER: Unremarkable. BOWEL: Diverticulosis with no evidence of diverticulitis. Appendix appears normal. No evidence of bowel obstruction. REPRODUCTIVE ORGANS: Enlarged prostate with mass effect on the urinary bladder. PERITONEUM: No intraabdominal free fluid or free air. LYMPH NODES: No pathologically enlarged mesenteric or retroperitoneal lymph nodes. ABDOMINAL WALL: No abdominal or pelvic wall hernia. BONES: No acute abnormality. LOWER CHEST: Visualized lung bases are unremarkable. CT/Abdomen/Pelvis without Cont IMPRESSION: 1. Stable 4 mm stone in the left ureterovesical junction and stable moderate left hydronephrosis as compared to 02/03/2024. 2. 2.2 cm indeterminate cystic lesion in the lower pole of the right kidney, new as compared to 09/06/2021. Recommend follow-up with routine MRI with dedicated renal protocol. 3. Enlarged prostate with mass effect on the urinary bladder. Electronically Signed: Mihai Martinez DO at 6:41 EDT ,
[2024-02-05] MEDS: Ondansetron 4 MG/2 ML Vial IV (05:16)
[2024-02-05] MEDS: Ketorolac 15 MG/ML Vial IV (05:18)
[2024-02-05] MEDS: Morphine 4 MG/ML Syringe IV (05:21)
[2024-02-05 05:24] LABS: Absolute Lymphocyte Count 0.83 X10^3/uL (0.83-4.51); Absolute Neutrophil Count 6.5 X10^3/uL (2.0-7.7); Basophil# 0.03 X10^3/uL; Basophil% 0.4 % (0-1); Eosinophil# 0.21 X10^3/uL; Eosinophils% 2.6 % (0-5); Hematocrit 40.9 % (40-54); Hemoglobin 13.3 g/dL (13.0-16.5); Lymphocyte # 0.83 X10^3/ul (0.83-4.51); Lymphocyte % 10.3 % (19-41); Mean Corp Hgb Conc 32.5 g/dL (32-36); Mean Corpuscular Hgb 28.2 pg (27.0-32.0); Mean Corpuscular Volume 86.8 fL (80-94); Mean Platelet Vol. 10.7 fl (6.2-12.0); Monocyte# 0.47 X10^3/uL; Monocyte% 5.9 % (0-10); NRBC Flagged by Analyzer 0 % (0-5); Neutrophil # 6.45 X10^3/uL (2.7-7.7); Neutrophil % 80.3 % (47-70); Platelet Count 162 K/mm3 (150-450); RBC Distribution Width CV 13.7 % (11.6-14.6); RBC Distribution Width SD 43.6 fl (35.1-43.9); Red Blood Count 4.71 M/mm3 (4.6-6.2)
[2024-02-05 05:39] LABS: Anion Gap 5 (5-15); BUN 36 mg/dL (7-18); BUN/Creat Ratio 16.6 RATIO (10-20); Calcium,Total 9.2 mg/dL (8.5-10.1); Chloride 109 mmol/L (98-107); Creatinine, Serum 2.17 mg/dL (0.70-1.30); EST Glomerular Filtration Rate 31 mL/min (>60); Est Glom Filt Rate - Afr Amer 37 mL/min (>60); Estimated Creatinine Clearance 28.79 ml/min; Glucose 146 mg/dL (74-106); Sodium Level 137 mmol/L (136-145)
--- OUTSIDE RECORDS SUMMARY | 2024-02-05 05:42 | XMS RPT_ITS | CCD ---
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 Name Role Phone JUAN MANUEL ALVARADO Attending [...] Jenae Savage MD Primary Care Provider Radha, [place] S Unavailable Juan Manuel Alvarado MD Unavailable Jenae Savage MD Primary Care Provider Radha, [place] S Unavailable Jenae Savage MD Primary Care Provider Radha, Ralph S Unavailable Juan Manuel Alvarado MD Unavailable Radha, Ralph S Unavailable Juan Manuel Alvarado MD Unavailable Radha AMEZQUITA [place] S Unavailable Jenae Savage MD Primary Care [...] Unavailable ELDERBROCK, JENAE Vasquez Primary Care Unavailable KHANDINAH CHANIANNA Referring Unavailable JAMES, RAFAEL Attending Unavailable ELDERBROCK, JENAE D Primary Care Unavailable JAMES, RAFAEL Referring Unavailable ELDERBROCK, JENAE D Primary Care Unavailable GINGER KHAN Attending Unavailable ALENA, JENAE Vasquez Primary Care Unavailable GARY KELLY A Referring Unavailable ELDERSHADYCK, JENAE Vasquez Primary Care Unavailable MADCORBIN, ÁNGLE Attending Unavailable ELDERBROCK, JENAE D Primary Care Unavailable SELF Referring Unavailable MADITZ, ÁNGEL Referring Unavailable ELDERBROCK, JENAE Vasquez Primary Care Unavailable Allergies Allergy Classification Reported Allergen(s) Allergy Type Date of Onset Reaction(s) Facility (18 sources) Lisinopril; Translations: [LISINOPRIL] Drug Allergy 11-24-2022 Intolerance [facility] Work Phone: Medications Current Medications Medication Drug [...] propionate 0.05 mg/actuat metered dose nasal spray (19 sources) Corticosteroid Start: 023 take 2 spray(s) by mouth once daily fluticasone (FLONASE) 50 mcg/actuation nasal spray Use 2 Sprays in each nostril once daily. Rinse mouth after use. 1 Each 3 09/07/2022 Active Comment on above: Use 2 Sprays in each nostril once daily. Rinse mouth after use. losartan potassium 50 mg oral tablet (16 sources) Angiotensin 2 Receptor Gonzales Start: take [...] pantoprazole 40 mg delayed release oral tablet (18 sources) Proton Pump Inhibitor Start: End: 024 [...] 9 06-25-2018 Chronic Diabetes mellitus with complications (14 sources) Type 2 diabetes mellitus; Translations: [Type [...] Facility Heidi 01-14-2024 NOHELIA Telephone (PHOEBE) -------- RENETTA PINK ([id number]) 1940 M Date Time Provider Department 01/14/24 [...] Status:Closed by NINFA BRYSON on 01/14/24 Normal [facility] CT WB SKULL TO KNEE WO IVCON on 01-12-2024 CT WB SKULL TO KNEE WO IVCON * * *Final Report* * * DATE OF EXAM: Jan 12 2024 3:33PM [facility] 2096 - CT WB SKULL TO KNEE [...] multiple myeloma. 2. Large bilateral renal cysts. Program Clerk: PSCB Transcribe Date/Time: Jan 14 2024 11:27A Dictated by : INDIANA NEVAREZ MD This examination was interpreted and the report reviewed and electronically signed by: INDIANA NEVAREZ MD on Jan 14 2024 11:40AM EST [id number] [facility] CNOVSPon 12-31-2023 CNOVSP Visit (SP) Office (PHOEBE) -------- RENETTA PINK ([id number]) 1940 M Date Time Provider Department 12/31/23 [...] temperature sourc (more content not included)... Normal [facility] B2 Microglob SerPl-mCncon Aejj-1-Lqfoqvhkzkwy n [Mass/Vol] 4.0 ug/mL High <3.1 [facility] Comment on above: Order Comment: Speci men Type: URINE SPECIMEN Ordering Facility: [facility] Address: [address] [place] [address] Result Comment: Beta -2 Microglobulin test is performed using the [employer] immunoturbidimetric method. Results obtained with different methods or kits cannot be used interchangeably. Performed By: #### L [id number] #### [facility] CLIA [id number] [place], [place] [address] [address] [place] CBC W Auto Differential pane l (Bld)on 12-24-2023 Basophils (Bld) [#/Vol] 10*3/uL Normal <0.11 [facility] Comment on above: Order Comment: Speci men Type: BLOOD SPECIMENOrdering Facility: [facility] Address: [address] [place] [address] Performed By: #### 5 7021-8 ####[facility]ITALWNCLIA [id number] [place] [address] [place] Basophils/100 WBC (Bld) 0.4 % Normal [facility] Comment on above: Order Comment: Speci men Type: BLOOD SPECIMENOrdering Facility: [facility] Address: [address] [place] [address] Performed By: #### 5 7021-8 ####[facility] [id number] [place] [address] [place] Differential cell count method Nom (Bld) Auto Normal [facility] Comment on above: Order Comment: Speci men Type: BLOOD SPECIMENOrdering Facility: [facility] Address: [address] [place] [address] Performed By: #### 5 7021-8 ####[facility] MILLWNCLIA [id number] [place] [address] [place] Eosinophils (Bld) [#/Vol] 0.23 10*3/uL Normal <0.46 [facility] Comment on above: Order Comment: Speci men Type: BLOOD SPECIMENOrdering Facility: [facility] Address: [address] [place] [address] Performed By: #### 5 7021-8 ####[facility] [id number] [place] [address] [place] Eosinophils/100 WBC (Bld) 4.6 % Normal [facility] Comment on above: Order Comment: Speci men Type: BLOOD SPECIMENOrdering Facility: [facility] Address: [address] [place] [address] Performed By: #### 5 7021-8 ####[facility] [id number] [place] [address] [place] Erythrocyte distribution width (RBC) [Ratio] 13.7 % Normal 11.5-15.0 [facility] Comment on above: Order Comment: Speci men Type: BLOOD SPECIMENOrdering Facility: [facility] Address: [address] [place] [address] Performed By: #### 5 7021-8 ####[facility] [id number] [place] [address] [place] Hematocrit (Bld) [Volume fraction] 41.3 % Normal 39.0-51.0 [facility] Comment on above: Order Comment: Speci men Type: BLOOD SPECIMENOrdering Facility: [facility] Address: [address] [place] [address] Performed By: #### 5 7021-8 ####[facility] [id number] [place] [address] [place] Hemoglobin (Bld) [Mass/Vol] 13.5 g/dL Normal 13.0-17.0 [facility] Comment on above: Order Comment: Speci men Type: BLOOD SPECIMENOrdering Facility: [facility] Address: [address] [place] [address] Performed By: #### 5 7021-8 ####[facility] [id number] [place] [address] [place] Immature granulocytes (Bld) [#/Vol] 10*3/uL Normal <0.10 [facility] Comment on above: Order Comment: Speci men Type: BLOOD SPECIMENOrdering Facility: [facility] Address: [address] [place] [address] Performed By: #### 5 7021-8 ####[facility] [id number] [place] [address] [place] Immature granulocytes/100 WBC (Bld) 0.4 % Normal [facility] Comment on above: Order Comment: Speci men Type: BLOOD SPECIMENOrdering Facility: [facility] Address: [address] [place] [address] Performed By: #### 5 7021-8 ####[facility] [id number] [place] [address] [place] Lymphocytes (Bld) [#/Vol] 0.79 10*3/uL Low 1.00-4.00 [facility] Comment on above: Order Comment: Speci men Type: BLOOD SPECIMENOrdering Facility: [facility] Address: [address] [place] [address] Performed By: #### 5 7021-8 ####[facility] [id number] [place] [address] [place] Lymphocytes/100 WBC (Bld) 15.9 % Normal [facility] Comment on above: Order Comment: Speci men Type: BLOOD SPECIMENOrdering Facility: [facility] Address: [address] [place] [address] Performed By: #### 5 7021-8 ####[facility] [id number] [place] [address] [place] MCH (RBC) [Entitic mass] 28.0 pg Normal 26.0-34.0 [facility] Comment on above: Order Comment: Speci men Type: BLOOD SPECIMENOrdering Facility: [facility] Address: [address] [place] [address] Performed By: #### 5 7021-8 ####[facility] [id number] [place] [address] [place] MCHC (RBC) [Mass/Vol] 32.7 g/dL Normal 30.5-36.0 [facility] Comment on above: Order Comment: Speci men Type: BLOOD SPECIMENOrdering Facility: [facility] Address: [address] [place] [address] Performed By: #### 5 7021-8 ####[facility] [id number] [place] [address] [place] MCV (RBC) [Entitic vol] 85.7 fL Normal 80.0-100.0 [facility] Comment on above: Order Comment: Speci men Type: BLOOD SPECIMENOrdering Facility: [facility] Address: [address] [place] [address] Performed By: #### 5 7021-8 ####[facility] [id number] [place] [address] [place] Monocytes (Bld) [#/Vol] 0.38 10*3/uL Normal <0.87 [facility] Comment on above: Order Comment: Speci men Type: BLOOD SPECIMENOrdering Facility: [facility] Address: [address] [place] [address] Performed By: #### 5 7021-8 ####[facility] [id number] [place] [address] [place] Monocytes/100 WBC (Bld) 7.6 % Normal [facility] Comment on above: Order Comment: Speci men Type: BLOOD SPECIMENOrdering Facility: [facility] Address: [address] [place] [address] Performed By: #### 5 7021-8 ####[facility] [id number] [place] [address] [place] Neutrophils (Bld) [#/Vol] 3.54 10*3/uL Normal 1.45-7.50 [facility] Comment on above: Order Comment: Speci men Type: BLOOD SPECIMENOrdering Facility: [facility] Address: [address] [place] [address] Performed By: #### 5 7021-8 ####[facility] [id number] [place] [address] [place] Neutrophils/100 WBC (Bld) 71.1 % Normal [facility] Comment on above: Order Comment: Speci men Type: BLOOD SPECIMENOrdering Facility: [facility] Address: [address] [place] [address] Performed By: #### 5 7021-8 ####[facility] [id number] [place] [address] [place] Nucleated RBC (Bld) [#/Vol] 10*3/uL Normal <0.01 [facility] Comment on above: Order Comment: Speci men Type: BLOOD SPECIMENOrdering Facility: [facility] Address: [address] [place] [address] Performed By: #### 5 7021-8 ####[facility] [id number] [place] [address] [place] Nucleated RBC/100 WBC (Bld) [Ratio] 0.0 /100 WBC Normal [facility] Comment on above: Order Comment: Speci men Type: BLOOD SPECIMENOrdering Facility: [facility] Address: [address] [place] [address] Performed By: #### 5 7021-8 ####[facility] [id number] [place] [address] [place] Platelet mean volume (Bld) [Entitic vol] 9.9 fL Normal 9.0-12.7 [facility] Comment on above: Order Comment: Speci men Type: BLOOD SPECIMENOrdering Facility: [facility] Address: [address] [place] [address] Performed By: #### 5 7021-8 ####[facility] KISHANNCLIA [id number] [place] [address] [place] Platelets (Bld) [#/Vol] 162 10*3/uL Normal 150-400 [facility] Comment on above: Order Comment: Speci men Type: BLOOD SPECIMENOrdering Facility: [facility] Address: [address] [place] [address] Performed By: #### 5 7021-8 ####[facility] RADHAPAL[facility] HILLSNCLIA [id number] [place] [address] [place] RBC (Bld) [#/Vol] 4.82 10*6/uL Normal 4.20-6.00 [facility] Comment on above: Order Comment: Speci men Type: BLOOD SPECIMENOrdering Facility: [facility] Address: [address] [place] [address] Performed By: #### 5 7021-8 ####[facility] [id number] [place] [address] [place] WBC (Bld) [#/Vol] 4.98 10*3/uL Normal 3.70-11.00 [facility] Comment on above: Order Comment: Speci men Type: BLOOD SPECIMENOrdering Facility: [facility] Address: [address] [place] [address] Performed By: #### 5 7021-8 ####[facility] [id number] [place] [address] [place] Comprehensive metabolic 2000 panelon 12-24-2023 Albumin [Mass/Vol] 4.5 g/dL Normal 3.9-4.9 [facility] Comment on above: Order Comment: Speci men Type: BLOOD SPECIMENOrdering Facility: [facility] Address: [address] [place] [address] Performed By: #### 2 532-0, 86716-6 ####[facility] SHI MILLTOWNCLIA [id number] [address] [place] ALP [Catalytic activity/Vol] 51 U/L Normal 38-113 [facility] Comment on above: Order Comment: Speci men Type: BLOOD SPECIMENOrdering Facility: [facility] Address: [address] [place] [address] Performed By: #### 2 532-0, 22795-0 ####[facility] SHI MILLTOWNCLIA [id number] [place] [address] [place] ALT [Catalytic activity/Vol] 13 U/L Normal 10-54 [facility] Comment on above: Order Comment: Speci men Type: BLOOD SPECIMENOrdering Facility: [facility] Address: [address] [place] [address] Performed By: #### 2 532-0, 64830-0 ####[facility] MILLTOWNCLIA [id number] [place] [address] [place] Anion gap [Moles/Vol] 11 mmol/L Normal 8-15 [facility] Comment on above: Order Comment: Speci men Type: BLOOD SPECIMENOrdering Facility: [facility] Address: [address] [place] [address] Performed By: #### 2 532-0, 41075-9 ####[facility] SHI MILLTOWNCLIA [id number] [place] [address] [place] AST [Catalytic activity/Vol] 16 U/L Normal 14-40 [facility] Comment on above: Order Comment: Speci men Type: BLOOD SPECIMENOrdering Facility: [facility] Address: [address] [place] [address] Performed By: #### 2 532-0, 92367-6 ####[facility] MILLTOWNCLIA [id number] [place] [address] [place] Bilirubin [Mass/Vol] 0.9 mg/dL Normal 0.2-1.3 [facility] Comment on above: Order Comment: Speci men Type: BLOOD SPECIMENOrdering Facility: [facility] Address: [address] [place] [address] Performed By: #### 2 532-0, 47520-2 ####[facility] MILLWNCLIA [id number] [place] [address] [place] Calcium [Mass/Vol] 9.8 mg/dL Normal 8.5-10.2 [facility] Comment on above: Order Comment: Speci men Type: BLOOD SPECIMENOrdering Facility: [facility] Address: [address] [place] [address] Performed By: #### 2 532-0, 93689-6 ####[facility] [id number] [place] [address] [place] Chloride [Moles/Vol] 107 mmol/L Normal 98-107 [facility] Comment on above: Order Comment: Speci men Type: BLOOD SPECIMENOrdering Facility: [facility] Address: [address] [place] [address] Performed By: #### 2 532-0, 68933-7 ####[facility] MILLWNCLIA [id number] [place] [address] [place] CO2 [Moles/Vol] 21 mmol/L Low 22-30 [facility] Comment on above: Order Comment: Speci men Type: BLOOD SPECIMENOrdering Facility: [facility] Address: [address] [place] [address] Performed By: #### 2 532-0, 55218-5 ####[facility] MILLPALOS HILLSNCLIA [id number] [place] [address] [place] Creatinine [Mass/Vol] 1.55 mg/dL High 0.73-1.22 [facility] Comment on above: Order Comment: Abdi james Type: BLOOD SPECIMENOrdering Facility: [facility] Address: [address] [place] [address] Performed By: #### 2 532-0, 11472-7 ####[facility]CL[facility] [id number] [place] [address] [place] Creatinine and Glomerular filtration rate.predicted panel (S/P/Bld) 44 mL/min/1.73m??? Low >=60 [facility] Comment on above: Order Comment: Abdi james Type: BLOOD SPECIMENOrdering Facility: [facility] Address: [address] [place] [address] Result Comment: Yuli mated Glomerular Filtration Rate [...] actual GFR. Performed By: #### 2 532-0, 28326-8 ####[facility]CL[facility] [id number] [place] [address] [place] Glucose [Mass/Vol] 112 mg/dL High 74-99 [facility] Comment on above: Order Comment: Abdi james Type: BLOOD SPECIMENOrdering Facility: [facility] Address: [address] [place] [address] Result Comment: The [employer] Diabetes Association (ADA) provides guidance for cutoff [...] Standards of Medical Care in Diabetes 2016, [employer] Diabetes Association. Diabetes Care. 2016.39(Suppl 1). Performed By: #### 2 532-0, 39660-5 ####[facility] [id number] [place] [address] [place] Potassium [Moles/Vol] 4.2 mmol/L Normal 3.7-5.1 [facility] Comment on above: Order Comment: Speci men Type: BLOOD SPECIMENOrdering Facility: [facility] Address: [address] [place] [address] Performed By: #### 2 532-0, 41456-0 ####[facility] [id number] [place] [address] [place] Protein [Mass/Vol] 7.2 g/dL Normal 6.3-8.0 [facility] Comment on above: Order Comment: Speci men Type: BLOOD SPECIMENOrdering Facility: [facility] Address: [address] [place] [address] Performed By: #### 2 532-0, 28603-6 ####[facility] [id number] [place] [address] [place] Sodium [Moles/Vol] 139 mmol/L Normal 136-144 [facility] Comment on above: Order Comment: Speci men Type: BLOOD SPECIMENOrdering Facility: [facility] Address: [address] [place] [address] Performed By: #### 2 532-0, 95215-7 ####[facility] [id number] [place] [address] [place] Urea nitrogen [Mass/Vol] 34 mg/dL High 9-24 [facility] Comment on above: Order Comment: Speci men Type: BLOOD SPECIMENOrdering Facility: [facility] Address: [address] [place] [address] Performed By: #### 2 532-0, 94334-9 ####[facility] [id number] [place] [id number] [facility] OF [place] IMMUNOFIXATION SCREEN, SERUM on 12-24-2023 INTERPRETATION (MPA) Normal [facility] Comment on above: Order Comment: Speci men Type: BLOOD SPECIMENOrdering Facility: [facility] Address: [address] [place] [address] Result Comment: Atyp ical restricted bands are present in the IgG and kappa regions. Consistent with IgG kappa monoclonal gammopathy. Performed By: #### I FESC ####[facility]IA [id number] [address] [place] MPA RESULT M protein is present. Abnormal No M p rotein is identified. [facility] Comment on above: Order Comment: Speci men Type: BLOOD SPECIMENOrdering Facility: [facility] Address: [address] [place] [address] Performed By: #### I FESC ####[facility] LABIA [id number] [address] [place] STAFF REVIEW ([facility]) Reviewed by Dr. Eliza Mclaughlin MD Normal [facility] Comment on above: Order Comment: Speci men Type: BLOOD SPECIMENOrdering Facility: [facility] Address: [address] [place] [address] Performed By: #### I FESC ####[facility] LABIA [id number] [place] [id number] [place] IMMUNOGLOBULINS,IGG,IGA,IGMo n 12-24-2023 IgA [Mass/Vol] 131 mg/dL Normal 70-400 [facility] Comment on above: Order Comment: Speci men Type: URINE SPECIMEN Ordering [facility] Address: [address] [place] [address] Performed By: #### L [id number] #### [facility] CLIA [id number] [address] [place] [address] [place] IgG [Mass/Vol] 1350 mg/dL Normal 700-1600 [facility] Comment on above: Order Comment: Speci men Type: URINE SPECIMEN [facility] Address: [address] [place] [address] Performed By: #### L [id number] #### [facility] CLIA [id number] [address] [place] [address] [place] IgM [Mass/Vol] mg/dL Low 40-230 [facility] Comment on above: Order Comment: Speci men Type: URINE SPECIMEN [facility] Address: [address] [place] [address] Performed By: #### L [id number] #### [facility] CLIA [id number] [address] [place] [address] [place] KAPPA/CHRISTIE,FREE,SERon 2023 Immunoglobulin light chains.kappa.free (S) [Mass/Vol] 30.9 mg/L High 3.3-19.4 [facility] Comment on above: Order Comment: Speci men Type: BLOOD SPECIMENOrdering Facility: [facility] Address: [address] [place] [address] Result Comment: Rare ly, increased serum free light chains levels may not be detected or accurately quantified due to prozone phenomenon or in high viscosity samples using this immunoturbidimetric assay. Correlation with other laboratory results and clinical findings is recommended. The [place] Free Light Chain was performed using the [employer] immunoturbidimetric method. Result obtained with different assay methods or kits cannot be used interchangeably. Performed By: #### K LFRS ####[facility] LABCLIA [id number] [place] [address] [place] Immunoglobulin light chains.kappa/Immuno globulin light chains.lambda (S) [Mass ratio] 1.03 Normal 0.26-1.65 [facility] Comment on above: Order Comment: Speci men Type: BLOOD SPECIMENOrdering Facility: [facility] Address: [address] [place] [address] Performed By: #### K LFRS ####[facility] LABCLIA [id number] [place] [address] [place] Immunoglobulin light chains.lambda.free [Mass/Vol] 29.9 mg/L High 5.7-26.3 [facility] Comment on above: Order Comment: Speci men Type: BLOOD SPECIMENOrdering Facility: [facility] Address: [address] [place] [address] Result Comment: Rare ly, increased serum free [...] used interchangeably. Performed By: #### K LFRS ####[facility] LABCLIA [id number] [place] [address] [place] LDH SerPl-cCncon 12-24-2023 LDH [Catalytic activity/Vol] 177 U/L Normal 135-225 [facility] Comment on above: Order Comment: Speci men Type: BLOOD SPECIMENOrdering Facility: [facility] Address: [address] [place] [address] Performed By: #### 2 532-0, 53960-3 ####[facility] [id number] [place] [address] [place] MONOCLONAL PROT UR W/INTERPo n 12-24-2023 INTERPRETATION (UMPA) Atypical restricted bands are present in the IgG and kappa regions. Consistent with IgG kappa monoclonal gammopathy. Normal [facility] Comment on above: Order Comment: Speci men Type: URINE SPECIMENOrdering Facility: [facility] Address: [address] [place] [address] Performed By: #### U RMPA ####[facility] LABIA [id number] [address] [place] STAFF REVIEW ([facility]A) Reviewed by Dr. Eliza Mclaughlin MD Normal [facility] Comment on above: Order Comment: Speci men Type: URINE SPECIMENOrdering Facility: [facility] Address: [address] [place], [place] [address] Performed By: #### U RMPA ####[facility] [id number] [place] [address] [place] UMPA RESULT M protein is present. Abnormal No M p rotein is identified. [facility] Comment on above: Order Comment: Speci men Type: URINE SPECIMENOrdering Facility: [facility] Address: [address] [place] [address] Performed By: #### U RMPA ####[facility] [id number] [address] [place] PROTEIN ELECTROPHORESIS SERU M (P)on 12-24-2023 Albumin [Mass/Vol] 4.26 g/dL Normal 3.43-5.41 [facility] Comment on above: Order Comment: Speci men Type: BLOOD SPECIMENOrdering Facility: [facility] Address: [address] [place] [address] Performed By: #### L [id number] ####[facility] [id number] [place] [address] [place] Alpha 1 globulin Elph [Mass/Vol] 0.19 g/dL Normal 0.18-0.43 [facility] Comment on above: Order Comment: Speci men Type: BLOOD SPECIMENOrdering Facility: [facility] Address: [address] [place] [address] Performed By: #### L [id number] ####[facility] [id number] [place] [address] [place] Alpha 2 globulin Elph [Mass/Vol] 0.67 g/dL Normal 0.42-0.98 [facility] Comment on above: Order Comment: Speci men Type: BLOOD SPECIMENOrdering Facility: [facility] Address: [address] [place] [address] Performed By: #### L [id number] ####[facility] LABCLIA [id number] [place] [address] [place] Beta globulin Elph [Mass/Vol] 0.62 g/dL Normal 0.61-1.17 [facility] Comment on above: Order Comment: Speci men Type: BLOOD SPECIMENOrdering Facility: [facility] Address: [address] [place] [address] Performed By: #### L [id number] ####[facility] [id number] [place] [address] [place] Gamma globulin Elph [Mass/Vol] 1.16 g/dL Normal 0.53-1.51 [facility] Comment on above: Order Comment: Speci men Type: BLOOD SPECIMENOrdering Facility: [facility] Address: [address] [place] [address] Performed By: #### L [id number] ####[facility] [id number] [place] [address] [place] INTERPRETATION COMMENT FOR PROTEIN ELECTROPHORESIS See separate immunofixation report for characterization of monoclonal gammopathy. Normal [facility] Comment on above: Order Comment: Speci men Type: BLOOD SPECIMENOrdering Facility: [facility] Address: [address] [place] [address] Performed By: #### L [id number] ####[facility] [id number] [place] [address] [place] M-PROTEIN LOCATION Gamma Fraction 1 Normal [facility] Comment on above: Order Comment: Speci men Type: BLOOD SPECIMENOrdering Facility: [facility] Address: [address] [place] [address] Performed By: #### L [id number] ####[facility] LABCLIA [id number] [place] [address] [place] Protein Fractions [Interp] An M protein is identified on protein electrophoresis. Abnormal No definitive M protein is identified on protein electrophoresi s. [facility] Comment on above: Order Comment: Speci men Type: BLOOD SPECIMENOrdering Facility: [facility] Address: [address] [place] [address] Performed By: #### L [id number] ####[facility] LABCLIA [id number] [place] [address] [place] Protein.monoclonal Elph [Mass/Vol] 0.60 g/dL High <=0.00 [facility] Comment on above: Order Comment: Speci men Type: BLOOD SPECIMENOrdering Facility: [facility] Address: [address] [place] [address] Performed By: #### L [id number] ####[facility] LABCLIA [id number] [place] [address] [place] SPE STAFF REVIEW Reviewed by Dr. Eliza Mclaughlin MD [facility] Comment on above: Order Comment: Speci men Type: BLOOD SPECIMENOrdering Facility: [facility] Address: [address] [place] [address] Performed By: #### L [id number] ####[facility] LABCLIA [id number] [place] [address] [place] Prot SerPl-mCncon 12-24-2023 Protein [Mass/Vol] 6.9 g/dL Normal 6.3-8.0 [facility] Comment on above: Order Comment: Speci men Type: URINE SPECIMEN [facility] Address: [address] [place] [address] Performed By: #### L [id number] #### [facility] CLIA [id number] [address] [place] [address] [place] Prot Ur-mCncon 12-24-2023 Protein (U) [Mass/Vol] 10 mg/dL Normal 0-20 [facility] Comment on above: Order Comment: Speci men Type: URINE SPECIMENOrdering Facility: [facility] Address: [address] [place] [address] Performed By: #### 2 888-6 ####[facility] LABCLIA [id number] [place] [address] [place] URINE PROTEIN ELECTROPHORESI S RANDOM (P)on 12-24-2023 Albumin Elph (U) [Mass fraction] 65.39 % Normal [facility] Comment on above: Order Comment: Speci men Type: URINE SPECIMEN [facility] Address: [address] [place] [address] Performed By: #### L [id number] #### [facility] CLIA [id number] [address] [place] [address] [place] Alpha 1 globulin Elph (U) [Mass fraction] 2.45 % Normal [facility] Comment on above: Order Comment: Speci men Type: URINE SPECIMEN [facility] Address: [address] [place] [address] Performed By: #### L [id number] #### [facility] CLIA [id number] [address] [place] [address] [place] Alpha 2 globulin Elph (U) [Mass fraction] 9.54 % Normal [facility] Comment on above: Order Comment: Speci men Type: URINE SPECIMEN [facility] Address: [address] [place] [address] Performed By: #### L [id number] #### [facility] CLIA [id number] [address] [place] [address] [place] Beta globulin Elph (U) [Mass fraction] 14.08 % Normal [facility] Comment on above: Order Comment: Speci men Type: URINE SPECIMEN [facility] Address: [address] [place] [address] Performed By: #### L [id number] #### [facility] CLIA [id number] [address] [place] [address] [place] Gamma globulin Elph (U) [Mass fraction] 8.53 % Normal [facility] Comment on above: Order Comment: Speci men Type: URINE SPECIMEN [facility] Address: [address] [place] [address] Performed By: #### L [id number] #### [facility] CLIA [id number] [address] [place] [address] [place] INTERPRETATION COMMENT FOR PROTEIN ELECTROPHORESIS The atypical region is relatively poorly defined and may represent an unusual presentation of polyclonal immunoglobulins, but cannot rule out the presence of a low level M protein. If clinically indicated, monoclonal protein analysis and serum free light chain analysis are suggested to evaluate further for monoclonal gammopathy. Normal [facility] Comment on above: Order Comment: Speci men Type: URINE SPECIMEN [facility] Address: [address] [place] [address] Performed By: #### L [id number] #### [facility] CLIA [id number] [address] [place] [address] [place] Protein Fractions Elph Luis Manuel (U) [Interp] An atypical region of restricted mobility is identified on protein electrophoresis. Abnormal No definitive M protein is identified on protein electrophoresi s. [facility] Comment on above: Order Comment: Speci men Type: URINE SPECIMEN [facility] Address: [address] [place] [address] Performed By: #### L [id number] #### [facility] CLIA [id number] [address] [place] [address] [place] STAFF REVIEW (URINE ELECTRO) Reviewed by Dr. Mickie Mclaughlin MD Normal [facility] Comment on above: Order Comment: Speci men Type: URINE SPECIMEN [facility] Address: [address] [place] [address] Performed By: #### L [id number] #### [facility] CLIA [id number] [address] [place] [address] [facility] Heidi 12-06-20[facility] RENETTA PINK ([id number]) 1940 M Date Time Provider Department 12/06/23 ELIZABETH AVILA [facility] During your visit today, we recorded [...] Encounter Status:Closed by ELIZABETH AVILA on 12/06/23 [facility] CNOVon 11-23-2023 CNOV Office Visit ([facility] ) -------- RENETTA PINK ([id number]) 1940 M Date Time Provider Department 11/23/23 2:00 PM [facility] During your visit today, we recorded the following information about you: Pulse Respiration Blood pressure Weight 52/minute 16/minute 112/60 85.7 kg Rafael Ramirez APRN.HOSPITAL FELLOW 11/23/2023 1:48 PM Signed Chief Complaint Patient presents with: Follow Up: 6 month HPI Renetta Pink is a 82 year old male [...] 585.3, ICD10: N18.32 - Continue following with team supervisor. - COMPREHENSIVE METABOLIC PANEL - COMPLETE BLOOD [...] needed. This note was partly generated using Your Image by [employer] voice recognition dictation and may contain some misspelled or inaccurate words missed on review. Allergies As of Date: 11/23/2023 Noted Allergy Reaction LISINOPRIL 11/24/2022 5 - Intolerance Comments: Victoriano Cough Date Reviewed: 11/23/2023 Reviewed by: Rafael Ramirez APRN.HOSPITAL FELLOW - Fully Assessed Reason for Visit: Follow [...] once daily.Disp: 90 tabletRfl: 3 HEMOGLOBIN A1C [MQTRH1U] Order #: [id number] FUTURE LIPID PANEL BASIC [SQLIPB] Order #: [id number] (more content not included)... Normal [facility] Comprehensive metabolic 2000 panelon 11-16-2023 Albumin [Mass/Vol] 4.4 g/dL Normal 3.9-4.9 [facility] Comment on above: Order Comment: Speci men Type: BLOOD SPECIMENOrdering Facility: [facility] Address: [address] [place] [address] Performed By: #### 2 4323-8 ####[facility] MILL[facility]OWNCLIA [id number] [place] [address] [place] ALP [Catalytic activity/Vol] 52 U/L Normal 38-113 [facility] Comment on above: Order Comment: Speci men Type: BLOOD SPECIMENOrdering Facility: [facility] Address: [address] [place] [address] Performed By: #### 2 4323-8 ####[facility] MILLWNCLIA [id number] [place] [address] [place] ALT [Catalytic activity/Vol] 12 U/L Normal 10-54 [facility] Comment on above: Order Comment: Speci men Type: BLOOD SPECIMENOrdering Facility: [facility] Address: [address] [place] [address] Performed By: #### 2 4323-8 ####[facility] [id number] [place] [address] [place] Anion gap [Moles/Vol] 11 mmol/L Normal 8-15 [facility] Comment on above: Order Comment: Speci men Type: BLOOD SPECIMENOrdering Facility: [facility] Address: [address] [place] [address] Performed By: #### 2 4323-8 ####[facility]CLIA [id number] [place] [address] [place] AST [Catalytic activity/Vol] 13 U/L Low 14-40 [facility] Comment on above: Order Comment: Speci men Type: BLOOD SPECIMENOrdering Facility: [facility] Address: [address] [place] [address] Performed By: #### 2 4323-8 ####[facility] [id number] [place] [address] [place] Bilirubin [Mass/Vol] 1.1 mg/dL Normal 0.2-1.3 [facility] Comment on above: Order Comment: Speci men Type: BLOOD SPECIMENOrdering Facility: [facility] Address: [address] [place] [address] Performed By: #### 2 4323-8 ####[facility] MILLTOWNCLIA [id number] [place] [address] [place] Calcium [Mass/Vol] 9.7 mg/dL Normal 8.5-10.2 [facility] Comment on above: Order Comment: Speci men Type: BLOOD SPECIMENOrdering Facility: [facility] Address: [address] [place] [address] Performed By: #### 2 4323-8 ####[facility] [id number] [place] [address] [place] Chloride [Moles/Vol] 108 mmol/L High 98-107 [facility] Comment on above: Order Comment: Speci men Type: BLOOD SPECIMENOrdering Facility: [facility] Address: [address] [place] [address] Performed By: #### 2 4323-8 ####[facility]IT[facility] [id number] [place] [address] [place] CO2 [Moles/Vol] 22 mmol/L Normal 22-30 [facility] Comment on above: Order Comment: Speci men Type: BLOOD SPECIMENOrdering Facility: [facility] Address: [address] [place] [address] Performed By: #### 2 4323-8 ####[facility] [id number] [place] [address] [place] Creatinine [Mass/Vol] 1.61 mg/dL High 0.73-1.22 [facility] Comment on above: Order Comment: Speci men Type: BLOOD SPECIMENOrdering Facility: [facility] Address: [address] [place] [address] Performed By: #### 2 4323-8 ####[facility] [id number] [place] [address] [place] Creatinine and Glomerular filtration rate.predicted panel (S/P/Bld) 42 mL/min/1.73m??? Low >=60 [facility] Comment on above: Order Comment: Abdi james Type: BLOOD SPECIMENOrdering Facility: [facility] Address: [address] [place] [address] Result Comment: Yuli mated Glomerular Filtration Rate [...] actual GFR. Performed By: #### 2 4323-8 ####[facility] [id number] [place] [address] [place] Glucose [Mass/Vol] 121 mg/dL High 74-99 [facility] Comment on above: Order Comment: Abdi james Type: BLOOD SPECIMENOrdering Facility: [facility] Address: [address] [place] [address] Result Comment: The British Diabetes Association (ADA) provides guidance for cutoff [...] Standards of Medical Care in Diabetes 2016, British Diabetes Association. Diabetes Care. 2016.39(Suppl 1). Performed By: #### 2 4323-8 ####[facility] MILLTOWNCLIA [id number] [place] [address] [place] Potassium [Moles/Vol] 4.3 mmol/L Normal 3.7-5.1 [facility] Comment on above: Order Comment: Speci men Type: BLOOD SPECIMENOrdering Facility: [facility] Address: [address] [place] [address] Performed By: #### 2 4323-8 ####[facility]WN[facility]IA [id number] [place] [address] [place] Protein [Mass/Vol] 6.9 g/dL Normal 6.3-8.0 [facility] Comment on above: Order Comment: Speci men Type: BLOOD SPECIMENOrdering Facility: [facility] Address: [address] [place] [address] Performed By: #### 2 4323-8 ####[facility] [id number] [place] [address] [place] Sodium [Moles/Vol] 141 mmol/L Normal 136-144 [facility] Comment on above: Order Comment: Speci men Type: BLOOD SPECIMENOrdering Facility: [facility] Address: [address] [place] [address] Performed By: #### 2 4323-8 ####[facility] MILLWNCLIA [id number] [place] [address] [place] Urea nitrogen [Mass/Vol] 34 mg/dL High 9-24 [facility] Comment on above: Order Comment: Speci men Type: BLOOD SPECIMENOrdering Facility: [facility] Address: [address] [place] [address] Performed By: #### 2 4323-8 ####[facility] [id number] [place] [address] [place] HbA1c (Bld)on 11-16-2023 Average glucose Estimated from glycated hemoglobin (Bld) [Mass/Vol] 123 mg/dL Normal [facility] Comment on above: Order Comment: Abdi james Type: BLOOD SPECIMENOrdering Facility: [facility] Address: [address] [place] [address] Result Comment: eAG: (Estimated average glucose) is a calculated value from HgbA1c and is veterans employment representative of the average blood glucose level in the last 2-3 month period. Performed By: #### 5 5454-3 ####[facility] LABCLIA [id number] [place] [address] [place] HbA1c (Bld) [Mass fraction] 5.9 % High 4.3-5.6 [facility] Comment on above: Order Comment: Abdi james Type: BLOOD SPECIMENOrdering Facility: [facility] Address: [address] [place] [address] Result Comment: Amer ican Diabetes Association guidelines indicate that patients with HgbA1c in the range 5.7-6.4% are at increased risk for development of diabetes, and intervention by lifestyle modification may be beneficial. HgbA1c greater or equal to 6.5% is considered diagnostic of diabetes. Performed By: #### 5 5454-3 ####[facility] LABCLIA [id number] [place] [address] [place] Lipid 1996 panelon 4 Cholesterol [Mass/Vol] 140 mg/dL Normal <200 [facility] Comment on above: Order Comment: Abdi james Type: BLOOD SPECIMENOrdering Facility: [facility] Address: [address] [place] [address] Result Comment: <200 mg/dL, Desirable 200-239 mg/dL, Borderline high >239 mg/dL, High Performed By: #### 2 4331-1 ####[facility] LABCLIA [id number] [address] STATES OF [facility] [id number] [place] [address] [place] Cholesterol in HDL [Mass/Vol] 51 mg/dL Normal >39 [facility] Comment on above: Order Comment: Abdi james Type: BLOOD SPECIMENOrdering Facility: [facility] Address: [address] [place] [address] Result Comment: 40-5 9 mg/dL, Acceptable >59 mg/dL, High: Negative risk factor for coronary heart disease <40 mg/dL, Low: Positive risk factor for coronary heart disease Performed By: #### 2 4331-1 ####[facility] LABCLIA [id number] [address] [id number] [address] [place] Cholesterol in LDL [Mass/Vol] 79 mg/dL Normal <100 [facility] Comment on above: Order Comment: Abdi james Type: BLOOD SPECIMENOrdering Facility: [facility] Address: [address] [place] [address] Result Comment: <100 mg/dL, Optimal 100-129 mg/dL, Near optimal/above optimal 130-159 mg/dL, Borderline high 160-189 mg/dL, High >189 mg/dL, Very high Secondary prevention optimal LDL Cholesterol levels are recommended to be < 70 mg/dL Performed By: #### 2 4331-1 ####[facility] LABCLIA [id number] [address] [id number] [address] [place] Cholesterol in LDL/Cholesterol in HDL [Mass ratio] 1.55 {ratio} Normal <2.54 [facility] Comment on above: Order Comment: Abdi james Type: BLOOD SPECIMENOrdering Facility: [facility] Address: [address] [place] [address] Result Comment: Refe rence: 1. National Cholesterol Education Program ATP III Guideline At-A-Glance Quick Desk Reference: National Heart, Lung, and Blood De [place]ter. National Institutes of Health. 2001: NIH Publication No. 01-3305. 2. An International Atherosclerosis Society position paper: global recommendations for the management of dyslipidemia: executive summary, Atherosclerosis. 2014: 232(2):410-413. Performed By: #### 2 4331-1 ####[facility] LABCLIA [id number] [address] [id number] [place] [address] [place] Cholesterol in VLDL [Mass/Vol] 10 mg/dL Normal <30 [facility] Comment on above: Order Comment: Speci men Type: BLOOD SPECIMENOrdering Facility: [facility] Address: [address] [place] [address] Performed By: #### 2 4331-1 ####[facility] LABCLIA [id number] [address] [id number] [place] [address] [place] Cholesterol non HDL [Mass/Vol] 89 mg/dL Normal <130 [facility] Comment on above: Order Comment: Speci men Type: BLOOD SPECIMENOrdering Facility: [facility] Address: [address] [place] [address] Result Comment: <130 mg/dL, Optimal 130-159 mg/dL, Near optimal/above optimal 160-189 mg/dL, Borderline high 190-219 mg/dL, High >219 mg/dL, Very high Secondary prevention optimal non HDL Cholesterol levels are recommended to be <100 mg/dL Performed By: #### 2 4331-1 ####[facility] LABCLIA [id number] [address] [id number] [place] [address] [place] Cholesterol.total/C holesterol in HDL [Mass ratio] 2.75 {ratio} Normal <5.10 [facility] Comment on above: Order Comment: Speci men Type: BLOOD SPECIMENOrdering Facility: [facility] Address: [address] [place] [address] Performed By: #### 2 4331-1 ####[facility] LABCLIA [id number] [id number] [place] [address] [place] FASTING TIME 12 hrs Normal [facility] Comment on above: Order Comment: Speci men Type: BLOOD SPECIMENOrdering Facility: [facility] Address: [address] [place] [address] Performed By: #### 2 4331-1 ####[facility] LABCLIA [id number] [address] [id number] [place] [address] [place] Triglyceride [Mass/Vol] 49 mg/dL Normal <150 [facility] Comment on above: Order Comment: Speci men Type: BLOOD SPECIMENOrdering Facility: [facility] Address: [address] [place] [address] Result Comment: <150 mg/dL, Normal 150-199 mg/dL, Borderline high 200-499 mg/dL, High >499 mg/dL, Very high Performed By: #### 2 4331-1 ####[facility] LABCLIA [id number] [id number] [place] [address] [place] CNOVSPon 06-29-2023 CNOVSP Visit (SP) Office (HEMAWS) -------- RENETTA PINK ([id number]) 1940 M Date Time Provider Department 06/29/23 1:30 PM GINGER KHAN During your visit today, we recorded the following information about you: Temperature Pulse Blood pressure Weight 98.7 degrees 59/minute 164/76 86.2 kg Ginger Khan 06/29/2023 2:25 PM Signed Renetta Pink 1940 06/29/2023 HPI: The patient is [...] or bladder habits. No bleeding. Follows with team supervisor. Appetite is good, energy level is stable. [...] No Fam (more content not included)... Normal [facility] MONOCLONAL PROT 24 UR W/INTE RPon 06-22-2023 INTERPRETATION (UMPA) Atypical restricted bands are present in the IgG and kappa regions. Consistent with IgG kappa monoclonal gammopathy. Normal [facility] Comment on above: Order Comment: Speci men Type: URINE SPECIMENOrdering Facility: [facility] Address: [address] [place] [address] Performed By: #### U 24MPA ####[facility] LABIA [id number] [address] [place] STAFF REVIEW (UMPA) Reviewed by Denia Kramer MD Normal [facility] Comment on above: Order Comment: Speci men Type: URINE SPECIMENOrdering Facility: [facility] Address: [address] [place] [address] Performed By: #### U 24MPA ####[facility] LABIA [id number] [place] [address] [place] UMPA RESULT M protein is present. Abnormal No M p rotein is identified. [facility] Comment on above: Order Comment: Speci men Type: URINE SPECIMENOrdering Facility: [facility] Address: [address] [place] [address] Performed By: #### U 24MPA ####[facility] LABIA [id number] [place] [address] [place] PROT ELEC UR 24HR W/M SPIKE (P)on 06-22-2023 Albumin/Globulin Elph (24H U) [Mass ratio] 72.86 % Normal [facility] Comment on above: Order Comment: Speci men Type: TIMED URINE SPECIMENOrdering Facility: [facility] SYSTEM Address: [address] [place] [address] Performed By: #### L [id number] ####[facility] LABCLIA [id number] [place] [address] [place] Alpha 1 globulin Elph (24H U) [Mass fraction] 2.81 % Normal [facility] Comment on above: Order Comment: Speci men Type: TIMED URINE SPECIMENOrdering Facility: [facility] Address: [address] [place] [address] Performed By: #### L [id number] ####[facility] LABCLIA [id number] [place] [address] [place] Alpha 2 globulin Elph (24H U) [Mass fraction] 7.11 % Normal [facility] Comment on above: Order Comment: Speci men Type: TIMED URINE SPECIMENOrdering Facility: [facility] Address: [address] [place] [address] Performed By: #### L [id number] ####[facility] LABCLIA [id number] [place] [address] [place] Beta globulin Elph (24H U) [Mass fraction] 11.84 % Normal [facility] Comment on above: Order Comment: Speci men Type: TIMED URINE SPECIMENOrdering Facility: [facility] Address: [address] [place] [address] Performed By: #### L [id number] ####[facility] LABCLIA [id number] [place] [address] [place] Gamma globulin Elph (24H U) [Mass fraction] 5.37 % Normal [facility] Comment on above: Order Comment: Speci men Type: TIMED URINE SPECIMENOrdering Facility: [facility] Address: [address] [place] [address] Performed By: #### L [id number] ####[facility] LABIA [id number] [address] [place] INTERPRETATION COMMENT FOR PROTEIN ELECTROPHORESIS See separate immunofixation report for characterization of monoclonal gammopathy. Normal [facility] Comment on above: Order Comment: Speci men Type: TIMED URINE SPECIMENOrdering Facility: [facility] Address: [address] [place] [address] Performed By: #### L [id number] ####[facility] LABIA [id number] [place] [address] [place] Protein Fractions Elph Luis Manuel (24H U) [Interp] An M protein is identified on protein electrophoresis. Abnormal No definitive M protein is identified on protein electrophoresi s. [facility] Comment on above: Order Comment: Speci men Type: TIMED URINE SPECIMENOrdering Facility: [facility] Address: [address] [place] [address] Performed By: #### L [id number] ####[facility] LABIA [id number] [place] [address] [place] Protein.monoclonal Elph (24H U) [Mass/Time] Normal [facility] Comment on above: Order Comment: Speci men Type: TIMED URINE SPECIMENOrdering Facility: [facility] Address: [address] [place] [address] Result Comment: M pr otein is too faint for accurate quantitation. Performed By: #### L [id number] ####[facility] LABIA [id number] [place] [id number] [place] STAFF REVIEW ([id number]) Reviewed by Denia Kramer MD Normal [facility] Comment on above: Order Comment: Speci men Type: TIMED URINE SPECIMENOrdering Facility: [facility] Address: [address] [place] [address] Performed By: #### L [id number] ####[facility] LABCLIA [id number] [place] [address] [place] Prot 24h Ur-mRateon 06-22-19 24 Protein (24H U) [Mass/Time] 0.25 g/24 Hr High <0.15 [facility] Comment on above: Order Comment: Speci men Type: URINE SPECIMEN [facility] Address: [address] [place] [address] Result Comment: Adul t Proteinuria Categories: <0.15 g/24 hours is considered normal to mildly increased 0.15 - 0.50 g/24 hours is considered moderately increased >0.50 g/24 hours is considered severely increased KDIGO. (2013). KDIGO 2012 Clinical Practice Guideline for the Evaluation and Management of Chronic Kidney Disease. Official Journal of the International Society of Nephrology, 3(1), 1-150. Performed By: #### L [id number] #### [facility] CLIA [id number] [address] [place] [address] [place] Protein (24H U) [Mass/Time]o n 06-22-2023 PERIOD (HRS) 24 hr Normal [facility] Comment on above: Order Comment: Speci men Type: URINE SPECIMEN [facility] Address: [address] [place] [address] Performed By: #### L [id number] #### [facility] CLIA [id number] [address] [place] [address] [place] Specimen volume (24H U) 2.1 L Normal [facility] Comment on above: Order Comment: Speci men Type: URINE SPECIMEN [facility] Address: [address] [place] [address] Performed By: #### L [id number] #### [facility] CLIA [id number] [address] [place] [address] [place] B2 Microglob SerPl-mCncon Ixzv-2-Kuudhnluukcj n [Mass/Vol] 3.2 ug/mL High <3.1 [facility] Comment on above: Order Comment: Speci men Type: BLOOD SPECIMENOrdering Facility: [facility] Address: [address] [place] [address] Result Comment: Beta -2 Microglobulin test is performed using the [employer] immunoturbidimetric method. Results obtained with different methods or kits cannot be used interchangeably. Performed By: #### 2 885-2, 195-1 ####[facility] LABCLIA [id number] [place] [address] [place] CBC W Auto Differential pane l (Bld)on 06-20-2023 Basophils (Bld) [#/Vol] 0.03 10*3/uL Normal <0.11 [facility] Comment on above: Order Comment: Speci men Type: BLOOD SPECIMENOrdering Facility: [facility] Address: [address] [place] [address] Performed By: #### 5 7021-8 ####[facility] [id number] [place] [address] [place] Basophils/100 WBC (Bld) 0.6 % Normal [facility] Comment on above: Order Comment: Speci men Type: BLOOD SPECIMENOrdering Facility: [facility] Address: [address] [place] [address] Performed By: #### 5 7021-8 ####[facility] [id number] [place] [address] [place] Differential cell count method Nom (Bld) Auto Normal [facility] Comment on above: Order Comment: Speci men Type: BLOOD SPECIMENOrdering Facility: [facility] Address: [address] [place] [address] Performed By: #### 5 7021-8 ####[facility] [id number] [place] [address] [place] Eosinophils (Bld) [#/Vol] 0.20 10*3/uL Normal <0.46 [facility] Comment on above: Order Comment: Speci men Type: BLOOD SPECIMENOrdering Facility: [facility] Address: [address] [place] [address] Performed By: #### 5 7021-8 ####[facility] [id number] [place] [address] [place] Eosinophils/100 WBC (Bld) 3.8 % Normal [facility] Comment on above: Order Comment: Speci men Type: BLOOD SPECIMENOrdering Facility: [facility] Address: [address] [place] [address] Performed By: #### 5 7021-8 ####[facility] [id number] [place] [address] [place] Erythrocyte distribution width (RBC) [Ratio] 13.7 % Normal 11.5-15.0 [facility] Comment on above: Order Comment: Speci men Type: BLOOD SPECIMENOrdering Facility: [facility] Address: [address] [place] [address] Performed By: #### 5 7021-8 ####[facility] [id number] [place] [address] [place] Hematocrit (Bld) [Volume fraction] 45.0 % Normal 39.0-51.0 [facility] Comment on above: Order Comment: Speci men Type: BLOOD SPECIMENOrdering Facility: [facility] Address: [address] [place] [address] Performed By: #### 5 7021-8 ####[facility] [id number] [place] [address] [place] Hemoglobin (Bld) [Mass/Vol] 15.1 g/dL Normal 13.0-17.0 [facility] Comment on above: Order Comment: Speci men Type: BLOOD SPECIMENOrdering Facility: [facility] Address: [address] [place] [address] Performed By: #### 5 7021-8 ####[facility] MILLWNCLIA [id number] [place] [address] [place] Immature granulocytes (Bld) [#/Vol] 10*3/uL Normal <0.10 [facility] Comment on above: Order Comment: Speci men Type: BLOOD SPECIMENOrdering Facility: [facility] Address: [address] [place] [address] Performed By: #### 5 7021-8 ####[facility]ITALWNCLIA [id number] [place] [address] [place] Immature granulocytes/100 WBC (Bld) 0.4 % Normal [facility] Comment on above: Order Comment: Speci men Type: BLOOD SPECIMENOrdering Facility: [facility] Address: [address] [place] [address] Performed By: #### 5 7021-8 ####[facility] [id number] [place] [address] [place] Lymphocytes (Bld) [#/Vol] 0.76 10*3/uL Low 1.00-4.00 [facility] Comment on above: Order Comment: Speci men Type: BLOOD SPECIMENOrdering Facility: [facility] Address: [address] [place] [address] Performed By: #### 5 7021-8 ####[facility]ITALWNCLIA [id number] [place] [address] [place] Lymphocytes/100 WBC (Bld) 14.5 % Normal [facility] Comment on above: Order Comment: Speci men Type: BLOOD SPECIMENOrdering Facility: [facility] Address: [address] [place] [address] Performed By: #### 5 7021-8 ####[facility] [id number] [place] [address] [place] MCH (RBC) [Entitic mass] 28.2 pg Normal 26.0-34.0 [facility] Comment on above: Order Comment: Speci men Type: BLOOD SPECIMENOrdering Facility: [facility] Address: [address] [place] [address] Performed By: #### 5 7021-8 ####[facility] [id number] [address] [place] MCHC (RBC) [Mass/Vol] 33.6 g/dL Normal 30.5-36.0 [facility] Comment on above: Order Comment: Speci men Type: BLOOD SPECIMENOrdering Facility: [facility] Address: [address] [place] [address] Performed By: #### 5 7021-8 ####[facility] [id number] [place] [address] [place] MCV (RBC) [Entitic vol] 84.1 fL Normal 80.0-100.0 [facility] Comment on above: Order Comment: Speci men Type: BLOOD SPECIMENOrdering Facility: [facility] Address: [address] [place] [address] Performed By: #### 5 7021-8 ####[facility] [id number] [place] [address] [place] Monocytes (Bld) [#/Vol] 0.37 10*3/uL Normal <0.87 [facility] Comment on above: Order Comment: Speci men Type: BLOOD SPECIMENOrdering Facility: [facility] Address: [address] [place] [address] Performed By: #### 5 7021-8 ####[facility]CL[facility] [id number] [place] [address] [place] Monocytes/100 WBC (Bld) 7.1 % Normal [facility] Comment on above: Order Comment: Speci men Type: BLOOD SPECIMENOrdering Facility: [facility] Address: [address] [place] [address] Performed By: #### 5 7021-8 ####[facility] RADHAPALOS HILLSRITALIA [id number] [place] [address] [place] Neutrophils (Bld) [#/Vol] 3.86 10*3/uL Normal 1.45-7.50 [facility] Comment on above: Order Comment: Speci men Type: BLOOD SPECIMENOrdering Facility: [facility] Address: [address] [place] [address] Performed By: #### 5 7021-8 ####[facility]IT[facility] [id number] [place] [address] [place] Neutrophils/100 WBC (Bld) 73.6 % Normal [facility] Comment on above: Order Comment: Speci men Type: BLOOD SPECIMENOrdering Facility: [facility] Address: [address] [place] [address] Performed By: #### 5 7021-8 ####[facility] [id number] [place] [address] [place] Nucleated RBC (Bld) [#/Vol] 10*3/uL Normal <0.01 [facility] Comment on above: Order Comment: Speci men Type: BLOOD SPECIMENOrdering Facility: [facility] Address: [address] [place] [address] Performed By: #### 5 7021-8 ####[facility] HOSPITALL[facility] [id number] [place] [address] [place] Nucleated RBC/100 WBC (Bld) [Ratio] 0.0 /100 WBC Normal [facility] Comment on above: Order Comment: Speci men Type: BLOOD SPECIMENOrdering Facility: [facility] Address: [address] [place] [address] Performed By: #### 5 7021-8 ####[facility] MILLTOWNCLIA [id number] [place] [address] [place] Platelet mean volume (Bld) [Entitic vol] 10.0 fL Normal 9.0-12.7 [facility] Comment on above: Order Comment: Speci men Type: BLOOD SPECIMENOrdering Facility: [facility] Address: [address] [place], [place] [address] Performed By: #### 5 7021-8 ####[facility]ITALWNCLIA [id number] [place] [address] [place] Platelets (Bld) [#/Vol] 166 10*3/uL Normal 150-400 [facility] Comment on above: Order Comment: Speci men Type: BLOOD SPECIMENOrdering Facility: [facility] Address: [address] [place], [place] [address] Performed By: #### 5 7021-8 ####[facility]CL[facility] [id number] [place] [address] [place] RBC (Bld) [#/Vol] 5.35 10*6/uL Normal 4.20-6.00 [facility] Comment on above: Order Comment: Speci men Type: BLOOD SPECIMENOrdering Facility: [facility] Address: [address] [place] [address] Performed By: #### 5 7021-8 ####[facility]ITALWNCLIA [id number] [place] [address] [place] WBC (Bld) [#/Vol] 5.24 10*3/uL Normal 3.70-11.00 [facility] Comment on above: Order Comment: Speci men Type: BLOOD SPECIMENOrdering Facility: [facility] Address: [address] [place], [place] [address] Performed By: #### 5 7021-8 ####[facility] [id number] [place] [address] [place] Comprehensive metabolic 2000 panelon 06-20-2023 Albumin [Mass/Vol] 4.6 g/dL Normal 3.9-4.9 [facility] Comment on above: Order Comment: Speci men Type: URINE SPECIMEN [facility] Address: [address] [place] [address] Performed By: #### L [id number] #### [facility] CLIA [id number] [address] [place] [address] [place] ALP [Catalytic activity/Vol] 52 U/L Normal 38-113 [facility] Comment on above: Order Comment: Speci men Type: URINE SPECIMEN [facility] Address: [address] [place] [address] Performed By: #### L [id number] #### [facility] CLIA [id number] [address] [place] [address] [place] ALT [Catalytic activity/Vol] 18 U/L Normal 10-54 [facility] Comment on above: Order Comment: Speci men Type: URINE SPECIMEN [facility] Address: [address] [place] [address] Performed By: #### L [id number] #### [facility] CLIA [id number] [address] [place] [address] [place] Anion gap [Moles/Vol] 7 mmol/L Low 9-18 [facility] Comment on above: Order Comment: Speci men Type: URINE SPECIMEN [facility] Address: [address] [place] [address] Performed By: #### L [id number] #### [facility] CLIA [id number] [address] [place] [address] [place] AST [Catalytic activity/Vol] 18 U/L Normal 14-40 [facility] Comment on above: Order Comment: Speci men Type: URINE SPECIMEN [facility] Address: [address] [place] [address] Performed By: #### L [id number] #### [facility] CLIA [id number] [address] [place] [address] [place] Bilirubin [Mass/Vol] 1.0 mg/dL Normal 0.2-1.3 [facility] Comment on above: Order Comment: Speci men Type: URINE SPECIMEN [facility] Address: [address] [place] [address] Performed By: #### L [id number] #### [facility] CLIA [id number] [address] [place] [address] [place] Calcium [Mass/Vol] 10.0 mg/dL Normal 8.5-10.2 [facility] Comment on above: Order Comment: Speci men Type: URINE SPECIMEN [facility] Address: [address] [place] [address] Performed By: #### L [id number] #### [facility] CLIA [id number] [address] [place] [address] [place] Chloride [Moles/Vol] 109 mmol/L High 97-105 [facility] Comment on above: Order Comment: Speci men Type: URINE SPECIMEN [facility] Address: [address] [place] [address] Performed By: #### L [id number] #### [facility] CLIA [id number] [address] [place] [address] [place] CO2 [Moles/Vol] 23 mmol/L Normal 22-30 [facility] Comment on above: Order Comment: Speci men Type: URINE SPECIMEN [facility] Address: [address] [place] [address] Performed By: #### L [id number] #### [facility] CLIA [id number] [place] Creatinine [Mass/Vol] 1.36 mg/dL High 0.73-1.22 [facility] Comment on above: Order Comment: Abdi james Type: URINE SPECIMEN [facility] Address: [address] [place] [address] Performed By: #### L [id number] #### [facility] CLIA [id number] [address] [place] [address] [place] Creatinine and Glomerular filtration rate.predicted panel (S/P/Bld) 52 mL/min/1.73m??? Low >=60 [facility] Comment on above: Order Comment: Abdi james Type: URINE SPECIMEN [facility] Address: [address] [place] [address] Result Comment: Yuli mated Glomerular Filtration Rate [...] reflect actual GFR. Performed By: #### L [id number] #### [facility] CLIA [id number] [address] [place] [address] [place] Glucose [Mass/Vol] 107 mg/dL High 74-99 [facility] Comment on above: Order Comment: Abdi james Type: URINE SPECIMEN [facility] Address: [address] [place] [address] Result Comment: The [place] Diabetes Association (ADA) provides guidance for cutoff [...] Standards of Medical Care in Diabetes 2016, [employer] Diabetes Association. Diabetes Care. 2016.39(Suppl 1). Performed By: #### L [id number] #### [facility] CLIA [id number] [address] [place] [address] [place] Potassium [Moles/Vol] 4.4 mmol/L Normal 3.7-5.1 [facility] Comment on above: Order Comment: Speci men Type: URINE SPECIMEN [facility] Address: [address] [place] [address] Performed By: #### L [id number] #### [facility] CLIA [id number] [address] [place] [address] [place] Protein [Mass/Vol] 7.6 g/dL Normal 6.3-8.0 [facility] Comment on above: Order Comment: Speci men Type: URINE SPECIMEN [facility] Address: [address] [place] [address] Performed By: #### L [id number] #### [facility] CLIA [id number] [address] [place] [address] [place] Sodium [Moles/Vol] 139 mmol/L Normal 136-144 [facility] Comment on above: Order Comment: Speci men Type: URINE SPECIMEN [facility] Address: [address] [place] [address] Performed By: #### L [id number] #### [facility] CLIA [id number] [address] [place] [address] [place] Urea nitrogen [Mass/Vol] 33 mg/dL High 9-24 [facility] Comment on above: Order Comment: Speci men Type: URINE SPECIMEN [facility] Address: [address] [place] [address] Performed By: #### L [id number] #### [facility] CLIA [id number] [address] [place] [address] [place] IMMUNOFIXATION SCREEN, SERUM on 06-20-2023 INTERPRETATION (MPA) Atypical restricted bands are present in the IgG and kappa regions. Consistent with IgG kappa monoclonal gammopathy. Normal [facility] Comment on above: Order Comment: Speci men Type: BLOOD SPECIMENOrdering Facility: [facility] Address: [address] [place] [address] Performed By: #### I FESC ####[facility] LABCLIA [id number] [place] [address] [place] MPA RESULT M protein is present. Abnormal No M p rotein is identified. [facility] Comment on above: Order Comment: Speci men Type: BLOOD SPECIMENOrdering Facility: [facility] Address: [address] [place] [address] Performed By: #### I FESC ####[facility] LABCLIA [id number] [address] [place] STAFF REVIEW ([facility]) Reviewed by Darvin Baugh MD, Ph.D ([id number]) Normal [facility] Comment on above: Order Comment: Speci men Type: BLOOD SPECIMENOrdering Facility: [facility] Address: [address] [place] [address] Performed By: #### I FESC ####[facility] LABCLIA [id number] [place] [address] [place] IMMUNOGLOBULINS GAMon 2023 IgA [Mass/Vol] 145 mg/dL Normal 70-400 [facility] Comment on above: Order Comment: Speci men Type: URINE SPECIMEN [facility] Address: [address] [place] [address] Performed By: #### L [id number] #### [facility] CLIA [id number] [address] [place] [address] [place] IgG [Mass/Vol] 1342 mg/dL Normal 700-1600 [facility] Comment on above: Order Comment: Speci men Type: URINE SPECIMEN [facility] Address: [address] [place] [address] Performed By: #### L [id number] #### [facility] CLIA [id number] [address] [place] [address] [place] IgM [Mass/Vol] 22 mg/dL Low 40-230 [facility] Comment on above: Order Comment: Speci men Type: URINE SPECIMEN [facility] Address: [address] [place] [address] Performed By: #### L [id number] #### [facility] CLIA [id number] [address] [place] [address] [place] KAPPA/CHRISTIE,FREE,SERon 2023 Immunoglobulin light chains.kappa.free (S) [Mass/Vol] 26.5 mg/L High 3.3-19.4 [facility] Comment on above: Order Comment: Speci men Type: URINE SPECIMEN [facility] Address: [address] [place] [address] Result Comment: Rare ly, increased serum free light chains levels may not be detected or accurately quantified due to prozone phenomenon or in high viscosity samples using this immunoturbidimetric assay. Correlation with other laboratory results and clinical findings is recommended. The [place] Free Light Chain was performed using the [employer] immunoturbidimetric method. Result obtained with different assay methods or kits cannot be used interchangeably. Performed By: #### L [id number] #### [facility] CLIA [id number] [address] [place] [address] [place] Immunoglobulin light chains.kappa/Immuno globulin light chains.lambda (S) [Mass ratio] 0.95 Normal 0.26-1.65 [facility] Comment on above: Order Comment: Speci men Type: URINE SPECIMEN [facility] Address: [address] [place] [address] Performed By: #### L [id number] #### [facility] CLIA [id number] [address] [place], [place] [address] [place] Immunoglobulin light chains.lambda.free [Mass/Vol] 27.8 mg/L High 5.7-26.3 [facility] Comment on above: Order Comment: Speci men Type: URINE SPECIMEN Ordering Facility: [facility] Address: [address] [place] [address] Result Comment: Rare ly, increased serum free [...] be used interchangeably. Performed By: #### L [id number] #### [facility] CLIA [id number] [address] [place] [address] [place] LDH SerPl-cCncon 06-20-2023 LDH [Catalytic activity/Vol] 182 U/L Normal 135-225 [facility] Comment on above: Order Comment: Speci men Type: URINE SPECIMEN Ordering Facility: [facility] Address: [address] [place] [address] Performed By: #### L [id number] #### [facility] CLIA [id number] [address] [place] [address] [place] PROTEIN ELECTROPHORESIS SERU M (P)on 06-20-2023 Albumin [Mass/Vol] 4.38 g/dL Normal 3.43-5.41 [facility] Comment on above: Order Comment: Speci men Type: BLOOD SPECIMENOrdering Facility: [facility] Address: [address] [place] [address] Performed By: #### L [id number] ####[facility]IA [id number] [place] [address] [place] Alpha 1 globulin Elph [Mass/Vol] 0.18 g/dL Normal 0.18-0.43 [facility] Comment on above: Order Comment: Speci men Type: BLOOD SPECIMENOrdering Facility: [facility] Address: [address] [place] [address] Performed By: #### L [id number] ####[facility]IA [id number] [place] [address] [place] Alpha 2 globulin Elph [Mass/Vol] 0.62 g/dL Normal 0.42-0.98 [facility] Comment on above: Order Comment: Speci men Type: BLOOD SPECIMENOrdering Facility: [facility] Address: [address] [place] [address] Performed By: #### L [id number] ####[facility]IA [id number] [place] [address] [place] Beta globulin Elph [Mass/Vol] 0.69 g/dL Normal 0.61-1.17 [facility] Comment on above: Order Comment: Speci men Type: BLOOD SPECIMENOrdering Facility: [facility] Address: [address] [place] [address] Performed By: #### L [id number] ####[facility]IA [id number] [place] [address] [place] Gamma globulin Elph [Mass/Vol] 1.13 g/dL Normal 0.53-1.51 [facility] Comment on above: Order Comment: Speci men Type: BLOOD SPECIMENOrdering Facility: [facility] Address: [address] [place] [address] Performed By: #### L [id number] ####[facility]IA [id number] [place] [address] [place] INTERPRETATION COMMENT FOR PROTEIN ELECTROPHORESIS See separate immunofixation report for characterization of monoclonal gammopathy. Normal [facility] Comment on above: Order Comment: Speci men Type: BLOOD SPECIMENOrdering Facility: [facility] Address: [address] [place] [address] Performed By: #### L [id number] ####[facility]IA [id number] [place] [address] [place] M-PROTEIN LOCATION Gamma Fraction 1 Normal [facility] Comment on above: Order Comment: Speci men Type: BLOOD SPECIMENOrdering Facility: [facility] Address: [address] [place] [address] Performed By: #### L [id number] ####[facility]IA [id number] [place] [address] [place] Protein Fractions [Interp] An M protein is identified on protein electrophoresis. Abnormal No definitive M protein is identified on protein electrophoresi s. [facility] Comment on above: Order Comment: Speci men Type: BLOOD SPECIMENOrdering Facility: [facility] Address: [address] [place] [address] Performed By: #### L [id number] ####[facility]IA [id number] [place] [address] [place] Protein.monoclonal Elph [Mass/Vol] 0.62 g/dL High <=0.00 [facility] Comment on above: Order Comment: Speci men Type: BLOOD SPECIMENOrdering Facility: [facility] Address: [address] [place] [address] Performed By: #### L [id number] ####[facility]IA [id number] [place] [id number] [place] SPE STAFF REVIEW Reviewed by Darvin Baugh MD, Ph.D ([id number]) Normal [facility] Comment on above: Order Comment: Speci men Type: BLOOD SPECIMENOrdering Facility: [facility] Address: [address] [place] [address] Performed By: #### L [id number] ####[facility]IA [id number] [place] [id number] [place] Prot SerPl-mCncon 06-20-2023 Protein [Mass/Vol] 7.0 g/dL Normal 6.3-8.0 [facility] Comment on above: Order Comment: Speci men Type: BLOOD SPECIMENOrdering Facility: [facility] Address: [address] [place] [address] Performed By: #### 2 885-2, 1951-04 ####[facility]CLIA [id number] [facility] [id number] [place] CNOVon 06-11-2023 CNOV Office Visit (KIDMST ) -------- RENETTA PINK ([id number]) 1940 M Date Time Provider Department 06/11/23 10:40 AM ÁNGEL JULIO During your visit today, we recorded the following information about you: Pulse Respiration Blood pressure Weight 58/minute 16/minute 153/76 86.3 kg Ángel Julio DO 06/11/2023 10:56 AM Signed [facility] NEPHROLOGY AND HYPERTENSION [facility] SERVICE DATE: [...] Complication, Without Long-Term Current Use of Insulin ([facility]) Internal Hemorrhoids Without Mention of Complication Hyperlipidemia, Unspecified Urinary Retention With Incomplete Bladder Emptying 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 Normal [facility] CBC panel Auto (Bld)on 06-01 Erythrocyte distribution width (RBC) [Ratio] 13.6 % Normal 11.5-15.0 [facility] Comment on above: Order Comment: Speci men Type: BLOOD SPECIMEN Ordering Facility: [facility] Address: [address] [place] [address] Performed By: #### 5 8410-2 #### [facility] CLIA [id number] [address] [place] [address] [place] Hematocrit (Bld) [Volume fraction] 42.5 % Normal 39.0-51.0 [facility] Comment on above: Order Comment: Speci men Type: BLOOD SPECIMEN Ordering Facility: [facility] Address: [address] [place] [address] Performed By: #### 5 8410-2 #### [facility] CLIA [id number] [address] [place] [address] [place] Hemoglobin (Bld) [Mass/Vol] 14.1 g/dL Normal 13.0-17.0 [facility] Comment on above: Order Comment: Speci men Type: BLOOD SPECIMEN Ordering Facility: [facility] Address: [address] [place] [address] Performed By: #### 5 8410-2 #### [facility] CLIA [id number] [address] [place] [address] [place] MCH (RBC) [Entitic mass] 27.9 pg Normal 26.0-34.0 [facility] Comment on above: Order Comment: Speci men Type: BLOOD SPECIMEN Ordering Facility: [facility] Address: [address] [place] [address] Performed By: #### 5 8410-2 #### [facility] CLIA [id number] [address] [place] [address] [place] MCHC (RBC) [Mass/Vol] 33.2 g/dL Normal 30.5-36.0 [facility] Comment on above: Order Comment: Speci men Type: BLOOD SPECIMEN Ordering Facility: [facility] Address: [address] [place] [address] Performed By: #### 5 8410-2 #### [facility] CLIA [id number] [address] [place] [address] [place] MCV (RBC) [Entitic vol] 84.0 fL Normal 80.0-100.0 [facility] Comment on above: Order Comment: Speci men Type: BLOOD SPECIMEN Ordering Facility: [facility] Address: [address] [place] [address] Performed By: #### 5 8410-2 #### [facility] CLIA [id number] [address] [place] [address] [place] Nucleated RBC (Bld) [#/Vol] 10*3/uL Normal <0.01 [facility] Comment on above: Order Comment: Speci men Type: BLOOD SPECIMEN Ordering Facility: [facility] Address: [address] [place] [address] Performed By: #### 5 8410-2 #### [id number] [address] [place] [address] [place] Platelet mean volume (Bld) [Entitic vol] 10.0 fL Normal 9.0-12.7 [facility] Comment on above: Order Comment: Speci men Type: BLOOD SPECIMEN Ordering Facility: [facility] Address: [address] [place] [address] Performed By: #### 5 8410-2 #### [id number] [address] [place] [address] [place] Platelets (Bld) [#/Vol] 168 10*3/uL Normal 150-400 [facility] Comment on above: Order Comment: Speci men Type: BLOOD SPECIMEN Ordering Facility: [facility] Address: [address] [place] [address] Performed By: #### 5 8410-2 #### [facility] CLIA [id number] [address] [place] [address] [place] RBC (Bld) [#/Vol] 5.06 10*6/uL Normal 4.20-6.00 [facility] Comment on above: Order Comment: Speci men Type: BLOOD SPECIMEN Ordering Facility: [facility] Address: [address] [place] [address] Performed By: #### 5 8410-2 #### [facility] CLIA [id number] [address] [place] [address] [place] WBC (Bld) [#/Vol] 5.24 10*3/uL Normal 3.70-11.00 [facility] Comment on above: Order Comment: Speci men Type: BLOOD SPECIMEN Ordering Facility: [facility] Address: [address] [place] [address] Performed By: #### 5 8410-2 #### [facility] CLIA [id number] [address] [place] [address] [place] Prot/Creat Uron 06-01-2023 Protein/Creatinine (U) [Mass ratio] 0.14 mg/mg Normal <0.15 [facility] Comment on above: Order Comment: Speci men Type: URINE SPECIMENOrdering Facility: [facility] Address: [address] [place] [address] Result Comment: Adul t Proteinuria Categories: <0.15 mg/mg is considered normal to mildly increased 0.15 - 0.50 mg/mg is considered moderately increased >0.50 mg/mg is considered severely increased KDIGO. (2013). KDIGO 2012 Clinical Practice Guideline for the Evaluation and Management of Chronic Kidney Disease. Official Journal of the International Society of Nephrology, 3(1), 1-150. Performed By: #### 2 890-2 ####[facility]IA [id number] [place] [address] [place] Protein/Creatinine (U) [Mass ratio]on 06-01-2023 Creatinine (U) [Mass/Vol] 50.2 mg/dL Normal 20.0-300.0 [facility] Comment on above: Order Comment: Speci men Type: URINE SPECIMENOrdering Facility: [facility] Address: [address] [place] [address] Performed By: #### 2 890-2 ####[facility]IA [id number] [place] [address] [place] Protein (U) [Mass/Vol] 7 mg/dL Normal 0-20 [facility] Comment on above: Order Comment: Speci men Type: URINE SPECIMENOrdering Facility: [facility] Address: [address] [place] [address] Performed By: #### 2 890-2 ####[facility]IA [id number] [place] [address] [place] Urinalysis complete panel (U )on 06-01-2023 Bacteria LM.HPF (Urine sed) [#/Area] Negative Normal Negative [facility] Comment on above: Order Comment: Speci men Type: URINE SPECIMENOrdering Facility: [facility] Address: [address] [place] [address] Performed By: #### 2 4356-8 ####[facility]IA [id number] [place] [address] [place] Bilirubin Ql (U) Negative Normal Negative [facility] Comment on above: Order Comment: Speci men Type: URINE SPECIMENOrdering Facility: [facility] Address: [address] [place] [address] Performed By: #### 2 4356-8 ####[facility]IA [id number] [place] [address] [place] Clarity (Unsp spec) Clear Normal Clear [facility] Comment on above: Order Comment: Speci men Type: URINE SPECIMENOrdering Facility: [facility] Address: [address] [place] [address] Performed By: #### 2 4356-8 ####[facility]IA [id number] [address] [place] Color (U) Yellow Normal Yellow [facility] Comment on above: Order Comment: Speci men Type: URINE SPECIMENOrdering Facility: [facility] Address: [address] [place] [address] Performed By: #### 2 4356-8 ####[facility]CLIA [id number] [place] [address] [place] Epithelial cells LM.HPF (Urine sed) [#/Area] None Seen Normal [facility] Comment on above: Order Comment: Speci men Type: URINE SPECIMENOrdering Facility: [facility] Address: [address] [place] [address] Performed By: #### 2 4356-8 ####[facility]CLIA [id number] [place] [address] [place] Glucose Test strip (U) [Mass/Vol] Negative Normal Negative [facility] Comment on above: Order Comment: Speci men Type: URINE SPECIMENOrdering Facility: [facility] Address: [address] [place] [address] Performed By: #### 2 4356-8 ####[facility]CLIA [id number] [place] [address] [place] Hemoglobin Ql (U) Negative Normal Negative [facility] Comment on above: Order Comment: Speci men Type: URINE SPECIMENOrdering Facility: [facility] Address: [address] [place] [address] Performed By: #### 2 4356-8 ####[facility]CLIA [id number] [place] [address] [place] Hyaline casts (Urine sed) [#/Area] 0 /[LPF] Normal 0 /LPF [facility] Comment on above: Order Comment: Speci men Type: URINE SPECIMENOrdering Facility: [facility] Address: [address] [place] [address] Performed By: #### 2 4356-8 ####[facility] LABCLIA [id number] [place] [address] [place] Ketones Ql (U) Negative Normal Negative [facility] Comment on above: Order Comment: Speci men Type: URINE SPECIMENOrdering Facility: [facility] Address: [address] [place] [address] Performed By: #### 2 4356-8 ####[facility] LABCLIA [id number] [place] [address] [place] Leukocyte esterase Test strip Ql (U) Negative Normal Negative [facility] Comment on above: Order Comment: Speci men Type: URINE SPECIMENOrdering Facility: [facility] Address: [address] [place] [address] Performed By: #### 2 4356-8 ####[facility] LABCLIA [id number] [place] [address] [place] Nitrite Ql (U) Negative Normal Negative [facility] Comment on above: Order Comment: Speci men Type: URINE SPECIMENOrdering Facility: [facility] Address: [address] [place] [address] Performed By: #### 2 4356-8 ####[facility] LABCLIA [id number] [place] [address] [place] pH (U) 6.0 [pH] Normal <8.5 [facility] Comment on above: Order Comment: Speci men Type: URINE SPECIMENOrdering Facility: [facility] Address: [address] [place] [address] Performed By: #### 2 4356-8 ####[facility] LABCLIA [id number] [place] [address] [place] Protein (U) [Mass/Vol] Negative Normal Negative [facility] Comment on above: Order Comment: Speci men Type: URINE SPECIMENOrdering Facility: [facility] Address: [address] [place] [address] Performed By: #### 2 4356-8 ####[facility] LABCLIA [id number] [place] [address] [place] RBC LM.HPF (Urine sed) [#/Area] 0-2 /HPF Normal 0-2 /HPF [facility] Comment on above: Order Comment: Speci men Type: URINE SPECIMENOrdering Facility: [facility] Address: [address] [place] [address] Performed By: #### 2 4356-8 ####[facility]IA [id number] [place] [address] [place] Specific gravity (U) [Rel density] 1.013 Normal 1.005-1.030 [facility] Comment on above: Order Comment: Speci men Type: URINE SPECIMENOrdering Facility: [facility] Address: [address] [place] [address] Performed By: #### 2 4356-8 ####[facility]IA [id number] [place] [address] [place] Urobilinogen Ql (U) 0.2 EU/dL Normal 0.2-1.0 EU/dL [facility] Comment on above: Order Comment: Speci men Type: URINE SPECIMENOrdering Facility: [facility] Address: [address] [place] [address] Performed By: #### 2 4356-8 ####[facility]IA [id number] [place] [address] [place] WBC LM.HPF (Urine sed) [#/Area] 0-5 /HPF Normal 0-5 /HPF [facility] Comment on above: Order Comment: Speci men Type: URINE SPECIMENOrdering Facility: [facility] Address: [address] [place] [address] Performed By: #### 2 4356-8 ####[facility] LABIA [id number] [place] [address], [place] [address] [place] CNOVon 05-25-2023 CNOV Office Visit (FAMPWS ) -------- RENETTA PINK ([id number]) 1940 M Date Time Provider Department 05/25/23 1:00 PM [facility] visit today, we recorded the following information about you: Pulse Respiration Blood pressure Weight 57/minute 16/minute 134/80 85.1 kg Rafael Ramirez APRN.HOSPITAL FELLOW 05/25/2023 1:23 PM Signed Chief Complaint Patient presents with: F/U 6 Month HPI Renetta iPnk is a 82 year old male who [...] exercise - COMP METABOLIC PANEL Rafael Ramirez APRN.HOSPITAL FELLOW RTO in 6 months, sooner if needed. This note was partly generated using Your [employer] voice recognition dictation and may contain some [...] [K21.9] Order(s):LIPID PANEL BASIC [SQLIPB] Order #: [id number] FUTURE COMP METABOLIC PANEL [SQCMP] Order #: [id number] FUTURE HGB A1C [PKMWP1O] Order #: [id number] (more content not included)... Normal [facility] ALBUMIN/CREAT RATIO RND URon 05-17-2023 Albumin DL <= 20 mg/L (U) [Mass/Vol] 33.0 mg/L Normal [facility] Comment on above: Order Comment: Speci men Type: URINE SPECIMENOrdering Facility: [facility] Address: [address] [place] [address] [place] [address] Performed By: #### U ACR ####[facility] LABCLIA [id number] [place] [address] [place] Albumin/Creatinine (U) [Mass ratio] 35 mg/g High <30 [facility] Comment on above: Order Comment: Speci men Type: URINE SPECIMENOrdering Facility: [facility] Address: [address] [place] [address] Result Comment: Adul t Male and Female Nephrotic Criteria: <30 mg/g is considered normal to mildly increased 30-300 mg/g is considered moderately increased >300 mg/g is considered severely increased KDIGO. (2013). KDIGO 2012 Clinical Practice Guideline for the Evaluation and Management of Chronic Kidney Disease. Official Journal of the International Society of Nephrology, 3(1), 1-150. Performed By: #### U ACR ####[facility] [id number] [place] [address] [place] Creatinine (U) [Mass/Vol] 95.0 mg/dL Normal 20.0-300.0 [facility] Comment on above: Order Comment: Speci men Type: URINE SPECIMENOrdering Facility: [facility] Address: [address] [place] [address] Performed By: #### U ACR ####[facility] [id number] [place] [address] [place] Comprehensive metabolic 2000 panelon 05-17-2023 Albumin [Mass/Vol] 4.4 g/dL Normal 3.9-4.9 [facility] Comment on above: Order Comment: Speci men Type: BLOOD SPECIMENOrdering Facility: [facility] Address: [address] [place] [address] Performed By: #### 2 4323-8 ####[facility] [id number] [place] [address] [place] ALP [Catalytic activity/Vol] 55 U/L Normal 38-113 [facility] Comment on above: Order Comment: Speci men Type: BLOOD SPECIMENOrdering Facility: [facility] Address: [address] [place] [address] Performed By: #### 2 4323-8 ####[facility] MILLWNCL[facility] [id number] [place] [address] [place] ALT [Catalytic activity/Vol] 15 U/L Normal 10-54 [facility] Comment on above: Order Comment: Speci men Type: BLOOD SPECIMENOrdering Facility: [facility] Address: [address] [place] [address] Performed By: #### 2 4323-8 ####[facility]ITAL[facility]CL[facility] [id number] [place] [address] [place] Anion gap [Moles/Vol] 7 mmol/L Low 9-18 [facility] Comment on above: Order Comment: Speci men Type: BLOOD SPECIMENOrdering Facility: [facility] Address: [address] [place] [address] Performed By: #### 2 4323-8 ####[facility] [id number] [place] [address] [place] AST [Catalytic activity/Vol] 17 U/L Normal 14-40 [facility] Comment on above: Order Comment: Speci men Type: BLOOD SPECIMENOrdering Facility: [facility] Address: [address] [place] [address] Performed By: #### 2 4323-8 ####[facility]ITALWNCLIA [id number] [place] [address] [place] Bilirubin [Mass/Vol] 0.9 mg/dL Normal 0.2-1.3 [facility] Comment on above: Order Comment: Speci men Type: BLOOD SPECIMENOrdering Facility: [facility] Address: [address] [place] [address] Performed By: #### 2 4323-8 ####[facility]ITALWNCLIA [id number] [place] [address] [place] Calcium [Mass/Vol] 10.2 mg/dL Normal 8.5-10.2 [facility] Comment on above: Order Comment: Speci men Type: BLOOD SPECIMENOrdering Facility: [facility] Address: [address] [place] [address] Performed By: #### 2 4323-8 ####[facility] MILLWNCLIA [id number] [place] [address] [place] Chloride [Moles/Vol] 107 mmol/L High 97-105 [facility] Comment on above: Order Comment: Speci men Type: BLOOD SPECIMENOrdering Facility: [facility] Address: [address] [place] [address] Performed By: #### 2 4323-8 ####[facility] [id number] [place] [address] [place] CO2 [Moles/Vol] 26 mmol/L Normal 22-30 [facility] Comment on above: Order Comment: Speci men Type: BLOOD SPECIMENOrdering Facility: [facility] Address: [address] [place] [address] Performed By: #### 2 4323-8 ####[facility] [id number] [place] [address] [place] Creatinine [Mass/Vol] 1.55 mg/dL High 0.73-1.22 [facility] Comment on above: Order Comment: Speci men Type: BLOOD SPECIMENOrdering Facility: [facility] Address: [address] [place] [address] Performed By: #### 2 4323-8 ####[facility] [id number] [place] [address] [place] Creatinine and Glomerular filtration rate.predicted panel (S/P/Bld) 44 mL/min/1.73m??? Low >=60 [facility] Comment on above: Order Comment: Speci men Type: BLOOD SPECIMENOrdering Facility: [facility] Address: [address] [id number] Result Comment: Yuli mated Glomerular Filtration Rate [...] actual GFR. Performed By: #### 2 4323-8 ####[facility] [id number] [place] [address] [place] Glucose [Mass/Vol] 119 mg/dL High 74-99 [facility] Comment on above: Order Comment: Abdi james Type: BLOOD SPECIMENOrdering Facility: [facility] Address: [address] [place] [address] Result Comment: The British Diabetes Association (ADA) provides guidance for cutoff [...] Standards of Medical Care in Diabetes 2016, British Diabetes Association. Diabetes Care. 2016.39(Suppl 1). Performed By: #### 2 4323-8 ####[facility] [id number] [place] [address] [place] Potassium [Moles/Vol] 4.8 mmol/L Normal 3.7-5.1 [facility] Comment on above: Order Comment: Abdi james Type: BLOOD SPECIMENOrdering Facility: [facility] Address: [address] [id number] Performed By: #### 2 4323-8 ####[facility] [id number] [place] [address] [place] Protein [Mass/Vol] 7.1 g/dL Normal 6.3-8.0 [facility] Comment on above: Order Comment: Speci men Type: BLOOD SPECIMENOrdering Facility: [facility] Address: [address] [place] [address] Performed By: #### 2 4323-8 ####[facility] [id number] [place] [address] [place] Sodium [Moles/Vol] 140 mmol/L Normal 136-144 [facility] Comment on above: Order Comment: Speci men Type: BLOOD SPECIMENOrdering Facility: [facility] Address: [address] [place] [address] Performed By: #### 2 4323-8 ####[facility] [id number] [place] [address] [place] Urea nitrogen [Mass/Vol] 35 mg/dL High 9-24 [facility] Comment on above: Order Comment: Speci men Type: BLOOD SPECIMENOrdering Facility: [facility] Address: [address] [place] [address] Performed By: #### 2 4323-8 ####[facility] [id number] [place] [address] [place] HbA1c (Bld)on 05-17-2023 Average glucose Estimated from glycated hemoglobin (Bld) [Mass/Vol] 128 mg/dL Normal [facility] Comment on above: Order Comment: Speci men Type: BLOOD SPECIMENOrdering Facility: [facility] Address: [address] [place] [address] Result Comment: eAG: (Estimated average glucose) is a calculated value from HgbA1c and is veterans employment representative of the average blood glucose level in the last 2-3 month period. Performed By: #### 5 5454-3 ####[facility] LABCLIA [id number] [place] [address] [place] HbA1c (Bld) [Mass fraction] 6.1 % High 4.3-5.6 [facility] Comment on above: Order Comment: Abdi james Type: BLOOD SPECIMENOrdering Facility: [facility] Address: [address] [place] [address] Result Comment: Amer ican Diabetes Association guidelines indicate that patients with HgbA1c in the range 5.7-6.4% are at increased risk for development of diabetes, and intervention by lifestyle modification may be beneficial. HgbA1c greater or equal to 6.5% is considered diagnostic of diabetes. Performed By: #### 5 5454-3 ####[facility] LABCLIA [id number] [place] [address] [place] Lipid 1996 panelon 4 Cholesterol [Mass/Vol] 150 mg/dL Normal <200 [facility] Comment on above: Order Comment: Abdi james Type: BLOOD SPECIMENOrdering Facility: [facility] Address: [address] [place] [address] Result Comment: <200 mg/dL, Desirable 200-239 mg/dL, Borderline high >239 mg/dL, High Performed By: #### 2 4331-1 ####[facility] LABCLIA [id number] [address] STATES OF [facility] [id number] [address] [place] Cholesterol in HDL [Mass/Vol] 56 mg/dL Normal >39 [facility] Comment on above: Order Comment: Abdi james Type: BLOOD SPECIMENOrdering Facility: [facility] Address: [address] [place] [address] Result Comment: 40-5 9 mg/dL, Acceptable >59 mg/dL, High: Negative risk factor for coronary heart disease <40 mg/dL, Low: Positive risk factor for coronary heart disease Performed By: #### 2 4331-1 ####[facility] LABCLIA [id number] [address] [id number] [address] Cholesterol in LDL [Mass/Vol] 85 mg/dL Normal <100 [facility] Comment on above: Order Comment: Speci men Type: BLOOD SPECIMENOrdering Facility: [facility] Address: [address] [place] [address] Result Comment: <100 mg/dL, Optimal 100-129 mg/dL, Near optimal/above optimal 130-159 mg/dL, Borderline high 160-189 mg/dL, High >189 mg/dL, Very high Secondary prevention optimal LDL Cholesterol levels are recommended to be < 70 mg/dL Performed By: #### 2 4331-1 ####[facility] LABCLIA [id number] [address] [id number] [address] STATES [facility] Cholesterol in LDL/Cholesterol in HDL [Mass ratio] 1.52 {ratio} Normal <2.54 [facility] Comment on above: Order Comment: Speci men Type: BLOOD SPECIMENOrdering Facility: [facility] Address: [address] [place] [address] Result Comment: Refe rence: 1. National Cholesterol Education Program ATP III Guideline At-A-Glance Quick Desk Reference: National Heart, Lung, and Blood [place]ter. National Institutes of Health. 2001: NIH Publication No. 01-3305. 2. An International Atherosclerosis Society position paper: global recommendations for the management of dyslipidemia: executive summary, Atherosclerosis. 2014: 232(2):410-413. Performed By: #### 2 4331-1 ####[facility] LABCLIA [id number] [address] [id number] [place] [address] [place] Cholesterol in VLDL [Mass/Vol] 9 mg/dL Normal <30 [facility] Comment on above: Order Comment: Speci men Type: BLOOD SPECIMENOrdering Facility: [facility] Address: [address] [place] [address] Performed By: #### 2 4331-1 ####[facility] LABCLIA [id number] [address] [id number] [place] [address] [place] Cholesterol non HDL [Mass/Vol] 94 mg/dL Normal <130 [facility] Comment on above: Order Comment: Speci men Type: BLOOD SPECIMENOrdering Facility: [facility] Address: [address] [place] [address] Result Comment: <130 mg/dL, Optimal 130-159 mg/dL, Near optimal/above optimal 160-189 mg/dL, Borderline high 190-219 mg/dL, High >219 mg/dL, Very high Secondary prevention optimal non HDL Cholesterol levels are recommended to be <100 mg/dL Performed By: #### 2 4331-1 ####[facility] LABCLIA [id number] [address] [id number] [place] [address] [place] Cholesterol.total/C holesterol in HDL [Mass ratio] 2.68 {ratio} Normal <5.10 [facility] Comment on above: Order Comment: Speci men Type: BLOOD SPECIMENOrdering Facility: [facility] Address: [address] [place] [address] Performed By: #### 2 4331-1 ####[facility] LABCLIA [id number] [address] [id number] [place] [address] [place] FASTING TIME 10 hrs Normal [facility] Comment on above: Order Comment: Speci men Type: BLOOD SPECIMENOrdering Facility: [facility] Address: [address] [place] [address] Performed By: #### 2 4331-1 ####[facility] LABCLIA [id number] [address] [id number] [place] [address] [place] Triglyceride [Mass/Vol] 45 mg/dL Normal <150 [facility] Comment on above: Order Comment: Speci men Type: BLOOD SPECIMENOrdering Facility: [facility] Address: [address] [place] [address] Result Comment: <150 mg/dL, Normal 150-199 mg/dL, Borderline high 200-499 mg/dL, High >499 mg/dL, Very high Performed By: #### 2 4331-1 ####[facility] LABCLIA [id number] [address] [id number] [place] [address] [place] CNOVon 02-15-2023 CNOV Office Visit (UROLST ) -------- RENETTA PINK ([id number]) 1940 M Date Time Provider Department 02/15/23 1:45 PM JANUSZ DAVENPORT During your visit today, we recorded the following information about you: Funmi Giles, ROSY 02/15/2023 1:41 PM Signed PVR = 119 ml Janusz Davenport MD 04/11/2023 9:00 PM Signed [facility] UROLOGY ESTABLISHED PATIENT CLINIC NOTE UROL [facility] PATIENT INFO: Renetta Pink 82 year old PCP: Jenae Savage [...] ICD10: Z13.89 REASON FOR VISIT: Follow-up HPI: Renetta Pink returns for continuing evaluation and management. [...] the difference in technique and patient positioning. Program Clerk: MANOJ Transcribe Date/Time: Jan 14 2023 4:00P [...] parenchymal echogenicit (more content not included)... Normal [facility] Urinalysis complete panel (U )on 02-15-2023 Bacteria LM.HPF (Urine sed) [#/Area] Negative Normal Negative [facility] Comment on above: Order Comment: Speci men Type: URINE SPECIMENOrdering Facility: [facility] Address: [address] [place] [address] Performed By: #### 2 4356-8 ####[facility] LABIA [id number] [place] [address] [place] Bilirubin Ql (U) Negative Normal Negative [facility] Comment on above: Order Comment: Speci men Type: URINE SPECIMENOrdering Facility: [facility] Address: [address] [place] [address] Performed By: #### 2 4356-8 ####[facility] LABCLIA [id number] [place] [address] [place] Clarity (Unsp spec) Clear Normal Clear [facility] Comment on above: Order Comment: Speci men Type: URINE SPECIMENOrdering Facility: [facility] Address: [address] [place] [address] Performed By: #### 2 4356-8 ####[facility] LABCLIA [id number] [place] [address] [place] Color (U) Yellow Normal Yellow [facility] Comment on above: Order Comment: Speci men Type: URINE SPECIMENOrdering Facility: [facility] Address: [address] [place] [address] Performed By: #### 2 4356-8 ####[facility] LABIA [id number] [place] [address] [place] Epithelial cells LM.HPF (Urine sed) [#/Area] None Seen Normal [facility] Comment on above: Order Comment: Speci men Type: URINE SPECIMENOrdering Facility: [facility] Address: [address] [place] [address] Performed By: #### 2 4356-8 ####[facility] LABIA [id number] [place] [address] [place] Glucose Test strip (U) [Mass/Vol] Negative Normal Negative [facility] Comment on above: Order Comment: Speci men Type: URINE SPECIMENOrdering Facility: [facility] Address: [address] [place] [address] Performed By: #### 2 4356-8 ####[facility] LABIA [id number] [place] [address] [place] Hemoglobin Ql (U) Negative Normal Negative [facility] Comment on above: Order Comment: Speci men Type: URINE SPECIMENOrdering Facility: [facility] Address: [address] [place] [address] Performed By: #### 2 4356-8 ####[facility] LABIA [id number] [place] [address] [place] Hyaline casts (Urine sed) [#/Area] 0 /[LPF] Normal 0 /LPF [facility] Comment on above: Order Comment: Speci men Type: URINE SPECIMENOrdering Facility: [facility] Address: [address] [place] [address] Performed By: #### 2 4356-8 ####[facility] LABCLIA [id number] [place] [address] [place] Ketones Ql (U) Negative Normal Negative [facility] Comment on above: Order Comment: Speci men Type: URINE SPECIMENOrdering Facility: [facility] Address: [address] [place] [address] Performed By: #### 2 4356-8 ####[facility] LABCLIA [id number] [place] [address] [place] Leukocyte esterase Test strip Ql (U) Negative Normal Negative [facility] Comment on above: Order Comment: Speci men Type: URINE SPECIMENOrdering Facility: [facility] Address: [address] [place] [address] Performed By: #### 2 4356-8 ####[facility] LABCLIA [id number] [place] [address] [place] Nitrite Ql (U) Negative Normal Negative [facility] Comment on above: Order Comment: Speci men Type: URINE SPECIMENOrdering Facility: [facility] Address: [address] [place] [address] Performed By: #### 2 4356-8 ####[facility] LABCLIA [id number] [place] [address] [place] pH (U) 6.0 [pH] Normal <8.5 [facility] Comment on above: Order Comment: Speci men Type: URINE SPECIMENOrdering Facility: [facility] Address: [address] [place] [address] Performed By: #### 2 4356-8 ####[facility] LABCLIA [id number] [place] [address] [place] Protein (U) [Mass/Vol] Negative Normal Negative [facility] Comment on above: Order Comment: Speci men Type: URINE SPECIMENOrdering Facility: [facility] Address: [address] [place] [address] Performed By: #### 2 4356-8 ####[facility] LABIA [id number] [place] [address] [place] RBC LM.HPF (Urine sed) [#/Area] 0-2 /HPF Normal 0-2 /HPF [facility] Comment on above: Order Comment: Speci men Type: URINE SPECIMENOrdering Facility: [facility] Address: [address] [place] [address] Performed By: #### 2 4356-8 ####[facility] LABIA [id number] [place] [address] [place] Specific gravity (U) [Rel density] 1.014 Normal 1.005-1.030 [facility] Comment on above: Order Comment: Speci men Type: URINE SPECIMENOrdering Facility: [facility] Address: [address] [place] [address] Performed By: #### 2 4356-8 ####[facility] LABIA [id number] [place] [address] [place] Urobilinogen Ql (U) 0.2 EU/dL Normal 0.2-1.0 EU/dL [facility] Comment on above: Order Comment: Speci men Type: URINE SPECIMENOrdering Facility: [facility] Address: [address] [place] [address] Performed By: #### 2 4356-8 ####[facility] LABIA [id number] [place] [address] [place] WBC LM.HPF (Urine sed) [#/Area] 0-5 /HPF Normal 0-5 /HPF [facility] Comment on above: Order Comment: Speci men Type: URINE SPECIMENOrdering Facility: [facility] Address: [address] [place] [address] Performed By: #### 2 4356-8 ####[facility] LABIA [id number] [address] [address], [place] [address] [place] US KIDNEY/BLADDERon 01-12-20 [facility] XR Chest PA and Lateralon IMPRESSION: Persistent elevation of the left hemidiaphragm. No focal lung consolidation. Program Clerk: MANOJ Transcribe Date/Time: Sep 18 2022 3:44P Dictated by : NHUNG BARKER MD This examination was interpreted and the report reviewed and electronically signed by: NHUNG BARKER MD on Sep 18 2022 3:44PM [facility] DIVISION OF RADIOLOGY * * *Final Report* [...] the thoracic spine. DIVISION OF RADIOLOGY Provider, [facility] - 09/18/2022 * * *Final Report* [...] the left hemidiaphragm. No focal lung consolidation. Program Clerk: PSCB Transcribe Date/Time: Sep 18 2022 3:44P Dictated by : NHUNG BARKER MD This examination was interpreted and the report reviewed and electronically signed by: NHUNG BARKER MD on Sep 18 2022 3:44PM EST [facility] Radiology Study observation (narrative) [facility] XR Chest PA and LateralOrder ed By: [facility] Provider on 09-18-2022 [facility] DIP, URINE (POC)on 2021 BILIRUBIN UA (POCT) Negative Negative [facility] CLARITY UA (POCT) Clear [facility] COLOR UA (POCT) Yellow [facility] GLUCOSE UA (POCT) Negative Negative mg/dL [facility] HEMOGLOBIN/BLOOD UA (POCT) Negative Negative [facility] KETONE UA (POCT) Negative Negative mg/dL [facility] LEUKOCYTES UA (POCT) Negative Negative [facility] NITRITE UA (POCT) Negative Negative [facility] PH UA (POCT) 5.5 4.5 - 8.0 [facility] Protein Ql (U) Negative Negative mg/dL [facility] SPECIFIC GRAVITY UA (POCT) 1.010 1.005 - 1.030 [facility] UROBILINOGEN UA (POCT) 0.2 E.U./dL Normal E.U./dL [facility] UA DIP, URINE (POC)on 2021 BILIRUBIN UA (POCT) Negative Negative [facility] CLARITY UA (POCT) Clear [facility] COLOR UA (POCT) Yellow [facility] GLUCOSE UA (POCT) Negative Negative mg/dL [facility] HEMOGLOBIN/BLOOD UA (POCT) Negative Negative [facility] KETONE UA (POCT) Negative Negative mg/dL [facility] LEUKOCYTES UA (POCT) Negative Negative [facility] NITRITE UA (POCT) Negative Negative [facility] PH UA (POCT) 5.5 4.5 - 8.0 [facility] Protein Ql (U) Negative Negative mg/dL [facility] SPECIFIC GRAVITY UA (POCT) 1.010 1.005 - 1.030 [facility] UROBILINOGEN UA (POCT) 0.2 E.U./dL Normal E.U./dL [facility] CBC panel Auto (Bld)on 08-08 Erythrocyte distribution width (RBC) [Ratio] 13.6 % 11.5 - 15.0 % [facility] Hematocrit (Bld) [Volume fraction] 48.5 % 39.0 - 51.0 % [facility] Hemoglobin (Bld) [Mass/Vol] 15.7 g/dL 13.0 - 17.0 g/dL [facility] MCH (RBC) [Entitic mass] 27.8 pg 26.0 - 34.0 pg [facility] MCHC (RBC) [Mass/Vol] 32.4 g/dL 30.5 - 36.0 g/dL [facility] MCV (RBC) [Entitic vol] 86.0 fL 80.0 - 100.0 fL [facility] Nucleated RBC (Bld) [#/Vol] 10*3/uL <0.01 k/uL [facility] Platelet mean volume (Bld) [Entitic vol] 9.8 fL 9.0 - 12.7 fL [facility] Platelets (Bld) [#/Vol] 211 10*3/uL 150 - 400 k/uL [facility] RBC (Bld) [#/Vol] 5.64 10*6/uL 4.20 - 6.0 0 m/uL [facility] WBC (Bld) [#/Vol] 6.62 10*3/uL 3.70 - 11. 00 k/uL [facility] CNOVon 06-26-2018 CNOV Office Visit (AGCARDPHRA) -------- RENETTA PINK ([id number]) 1940 M Date Time Provider Department 06/26/18 11:20 AM JUAN MANUEL ALVARADO During your visit today, we recorded the following information about you: Pulse Blood pressure Weight Height 61/minute 142/80 86.2 kg 1.778 m Juan Manuel Alvarado MD 06/26/2018 1:19 PM Signed PRIMARY CARE PHYSICIAN: Jenae Savage MD [address] [place] [address] REFERRING PHYSICIAN: Ralph Garcia MD ([facility]) [address] [facility] [address] Patient Care Team: Jenae Savage as PCP - General (Family Practice) Ralph Garcia as Specialty Repeat Photocomposing Machine Operator (Cardiology) Juan Manuel Alvarado as Specialty Repeat Photocomposing Machine Operator (Cardiology) CHIEF COMPLAINT: Evaluation of arrhythmia HISTORY OF PRESENT ILLNESS: Mr. Pink is a 77 year old male who presents today with his for evaluation of arrhythmia. He states that he has been and continues to be very active. 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 He exercises frequently, such as taking long [...] himself very well hydrated. He presented to [facility] ER. An EKG revealed mild tachycardia that was interpreted as junctional tachycardia. He was evaluated by a web mobile designer, Dr. Garcia. An echocardiogram was unremarkable. An [...] Laterality Date - COLONOSCOP W/ OR W/O [facility] SPEC 03/18/2001 Colonoscopy - COLONOSCOP W/ OR W/O [facility] SPEC 10/24/12 Colonoscopy - COLONOSCOPY W/BX 04/24/2006 [...] Sinus bradycardia 54 bpm; first-degree AV block (CT 286 ms); incomplete right bundle branch block [...] healthcare provider's instructions for treatment. Developed by [employer]. Published by [employer]. Copyright ?2013 [employer] and/or one of its subsidiaries. All rights reserved. Referring Provider: RALPH GARCIA [[id number]] Allergies As of Date: 06/26/2018 (No Known Allergies) Date Reviewed: 06/26/2018 Reviewed by: Juan Manuel Alvarado - Fully Assessed Reason for Visit: New Patient [172] Cmt: ref from Dr. Garcia for SVT Primary Visit Diagnosis:Syncope and collapse [R55] Other Visit Diagnoses:First degree atrioventricular block [I44.0] SVT (supraventricular tachycardia) (HCC) [I47.1] Order(s):ECG B/O W INTERP (MED OFFICE) [ECG06] Order #: [id number] Prescriptions as of 06/26/2018 Sig: SILDENAFIL (ANTIHYPERTENSIVE)* [...] healthcare provider's instructions for treatment. Developed by [employer]. Published by [employer]. Copyright ?2014 [employer] and/or one of its subsidiaries. All rights [...] PROGRESSon 06-26-2018 Protein mass conc HNO ID: [id number] Author: Juan Manuel Alvarado Service: ? Author Type: Physician Type: Progress Notes Filed: 06/26/2018 1:19 PM Note Text: PRIMARY CARE PHYSICIAN: Jenae Savage MD [address] [place] [address] REFERRING PHYSICIAN: Ralph Garcia MD ([facility]) [address] [address] Patient Care Team: Jenae Savage as PCP - General (Family Practice) Ralph Garcia as Specialty Repeat Photocomposing Machine Operator (Cardiology) Juan Manuel Alvarado as Specialty Repeat Photocomposing Machine Operator (Cardiology) CHIEF COMPLAINT: Evaluation of arrhythmia HISTORY OF PRESENT ILLNESS: Mr. Pink is a 77 year old male who presents today with his for evaluation of arrhythmia. He states that he has been and continues to be very active. 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 He exercises frequently, such as taking [...] himself very well hydrated. He presented to [facility] ER. An EKG revealed mild tachycardia that was interpreted as junctional tachycardia. He was evaluated by a web mobile designer, Dr. Garcia. An echocardiogram was unremarkable. An [...] Laterality Date - COLONOSCOP W/ OR W/O [facility] SPEC 03/18/2001 Colonoscopy - COLONOSCOP W/ OR W/O [facility] SPEC 10/24/12 Colonoscopy - COLONOSCOPY W/BX 04/24/2006 [...] Sinus bradycardia 54 bpm; first-degree AV block (CT 286 ms); incomplete right bundle branch block [...] MD 06/25/2018 [facility] Heidi 04-23-2017 [facility] Telephone (FVPRAD) Andry PINK ([id number]) 1940 MDate Time Provider Department04/23/17 ORTIZ MEZA During your visit today, we recorded the following information about you:Ortiz Meza MD 04/23/2017 8:58 AM [id number] is low riskGood newsLets have him see Amy in one year with Ayanna Maki PA-C 04/23/2017 9:03 AM Luigi send message in [employer].Allergies As of Date: 04/23/2017(No Known Allergies)Date Reviewed: [...] Status:Closed by ORTIZ MEZA MD on 04/23/17 [facility] Vital Signs Date Time Vital Sign Value Performing Clinician Faci litvincent 12-31-2023 14:17-0400 Body mass index (BMI) [Ratio] 27.34 kg/m2 Gary Peteri DO Work Phone: [facility] 12-31-2023 14:17-0400 Body temperature 98.2 [degF] Gary Masci DO Work Phone: [facility] 12-31-2023 14:17-0400 Body weight 86.64 kg Gary Masci DO Work Phone: [facility] 12-31-2023 14:17-0400 Diastolic blood pressure 77 mm[Hg] Gary Masci DO Work Phone: [facility] 12-31-2023 14:17-0400 Heart rate 53 /min Gary Masci DO Work Phone: [facility] 12-31-2023 14:17-0400 SaO2% (BldA) [Mass fraction] 98 % Gary Masci DO Work Phone: [facility] 12-31-2023 14:17-0400 Systolic blood pressure 151 mm[Hg] Gary Masci DO Work Phone: [facility] 11-23-2023 13:04-0400 Body mass index (BMI) [Ratio] 27.06 kg/m2 Rafael Ramirez APRN.HOSPITAL FELLOW Work Phone: [facility] 11-23-2023 13:04-0400 Body weight 85.73 kg Rafael Ramirez APRN.HOSPITAL FELLOW Work Phone: [facility] 11-23-2023 13:04-0400 Diastolic blood pressure 60 mm[Hg] Rafael James HOT MOLDER.HOSPITAL FELLOW Work Phone: [facility] 11-23-2023 13:04-0400 Heart rate 52 /min Rafael James HOT MOLDER.HOSPITAL FELLOW Work Phone: [facility] 11-23-2023 13:04-0400 Respiratory rate 16 /min Rafael James HOT MOLDER.HOSPITAL FELLOW Work Phone: [facility] 11-23-2023 13:04-0400 SaO2% (BldA) [Mass fraction] 98 % Rafael James HOT MOLDER.HOSPITAL FELLOW Work Phone: [facility] 11-23-2023 13:04-0400 Systolic blood pressure 112 mm[Hg] Rafael James HOT MOLDER.HOSPITAL FELLOW Work Phone: [facility] 06-29-2023 13:07-0400 Body temperature 98.71 [degF] Ginger Khan Work Phone: [facility] 06-29-2023 13:07-0400 Body weight 86.18 kg Ginger Khan Work Phone: [facility] 06-29-2023 13:07-0400 Diastolic blood pressure 76 mm[Hg] Ginger Khan Work Phone: [facility] 06-29-2023 13:07-0400 Heart rate 59 /min Ginger Khan Work Phone: [facility] 06-29-2023 13:07-0400 SaO2% (BldA) [Mass fraction] 98 % Ginger Khan Work Phone: [facility] 06-29-2023 13:07-0400 Systolic blood pressure 164 mm[Hg] Ginger Khan Work Phone: [facility] 06-11-2023 10:28-0500 Body weight 86.3 kg Ángel Julio DO Work Phone: [facility] 06-11-2023 10:28-0500 Diastolic blood pressure 76 mm[Hg] Ángel Maditz DO Work Phone: [facility] 06-11-2023 10:28-0500 Heart rate 58 /min Ángel Maditz DO Work Phone: [facility] 06-11-2023 10:28-0500 Respiratory rate 16 /min Ángel Maditz DO Work Phone: [facility] 06-11-2023 10:28-0500 Systolic blood pressure 153 mm[Hg] Ángel Maditz DO Work Phone: [facility] 05-25-2023 13:09-0500 Diastolic blood pressure 80 mm[Hg] Rafael James HOT MOLDER.HOSPITAL FELLOW Work Phone: [facility] 05-25-2023 13:09-0500 Systolic blood pressure 134 mm[Hg] Rafael James HOT MOLDER.HOSPITAL FELLOW Work Phone: [facility] 05-25-2023 12:37-0500 Body weight 85.09 kg Rafael James HOT MOLDER.HOSPITAL FELLOW Work Phone: [facility] 05-25-2023 12:37-0500 Heart rate 57 /min Rafael James HOT MOLDER.HOSPITAL FELLOW Work Phone: [facility] 05-25-2023 12:37-0500 Respiratory rate 16 /min Rafael James HOT MOLDER.HOSPITAL FELLOW Work Phone: [facility] 05-25-2023 12:37-0500 SaO2% (BldA) [Mass fraction] 97 % Rafaelrachel Ramirez HOT MOLDER.HOSPITAL FELLOW Work Phone: [facility] 12-05-2022 11:07-0400 Body height 178 cm Gary Peteri DO Work Phone: [facility] 12-05-2022 11:07-0400 Body temperature 98.4 [degF] Gary Masci DO Work Phone: [facility] 12-05-2022 11:07-0400 Body weight 85.05 kg Gary Peteri DO Work Phone: [facility] 12-05-2022 11:07-0400 Diastolic blood pressure 70 mm[Hg] Gary Peteri DO Work Phone: [facility] 12-05-2022 11:07-0400 Heart rate 60 /min Gary Masci DO Work Phone: [facility] 12-05-2022 11:07-0400 SaO2% (BldA) [Mass fraction] 98 % Gary Masci DO Work Phone: [facility] 12-05-2022 11:07-0400 Systolic blood pressure 149 mm[Hg] Gary Masci DO Work Phone: [facility] 11-24-2022 14:13-0400 Diastolic blood pressure 68 mm[Hg] Rafael James HOT MOLDER.HOSPITAL FELLOW Work Phone: [facility] 11-24-2022 14:13-0400 Systolic blood pressure 118 mm[Hg] Rafael James HOT MOLDER.HOSPITAL FELLOW Work Phone: [facility] 11-24-2022 13:34-0400 Body weight 85.82 kg Rafael James HOT MOLDER.HOSPITAL FELLOW Work Phone: [facility] 11-24-2022 13:34-0400 Heart rate 56 /min Rafael James HOT MOLDER.HOSPITAL FELLOW Work Phone: [facility] 11-24-2022 13:34-0400 Respiratory rate 16 /min Rafael James HOT MOLDER.HOSPITAL FELLOW Work Phone: [facility] 11-24-2022 13:34-0400 SaO2% (BldA) [Mass fraction] 97 % Rafael James HOT MOLDER.HOSPITAL FELLOW Work Phone: [facility] 09-07-2022 09:32-0400 Body weight 83.46 kg Elizabeth Avila HOT MOLDER.HOSPITAL FELLOW Work Phone: [facility] 09-07-2022 09:32-0400 Diastolic blood pressure 60 mm[Hg] Elizabeth Chenf HOT MOLDER.HOSPITAL FELLOW Work Phone: [facility] 09-07-2022 09:32-0400 Heart rate 63 /min Elizabeth Tannhof HOT MOLDER.HOSPITAL FELLOW Work Phone: [facility] 09-07-2022 09:32-0400 Respiratory rate 16 /min Elizabeth Tannhof HOT MOLDER.HOSPITAL FELLOW Work Phone: [facility] 09-07-2022 09:32-0400 SaO2% (BldA) [Mass fraction] 96 % Elizabeth Tannhof HOT MOLDER.HOSPITAL FELLOW Work Phone: [facility] 09-07-2022 09:32-0400 Systolic blood pressure 134 mm[Hg] Elizabeth Tannhof HOT MOLDER.HOSPITAL FELLOW Work Phone: [facility] 05-26-2022 14:27-0500 Diastolic blood pressure 78 mm[Hg] Rafael James HOT MOLDER.HOSPITAL FELLOW Work Phone: [facility] 05-26-2022 14:27-0500 Systolic blood pressure 120 mm[Hg] Rafael James HOT MOLDER.HOSPITAL FELLOW Work Phone: [facility] 05-26-2022 13:33-0500 Body temperature 97.81 [degF] Rafael James HOT MOLDER.HOSPITAL FELLOW Work Phone: [facility] 05-26-2022 13:33-0500 Body weight 85.28 kg Rafael James HOT MOLDER.HOSPITAL FELLOW Work Phone: [facility] 05-26-2022 13:33-0500 Heart rate 61 /min Rafael James HOT MOLDER.HOSPITAL FELLOW Work Phone: [facility] 05-26-2022 13:33-0500 Respiratory rate 16 /min Rafael James HOT MOLDER.HOSPITAL FELLOW Work Phone: [facility] 05-26-2022 13:33-0500 SaO2% (BldA) [Mass fraction] 98 % Rafael James HOT MOLDER.HOSPITAL FELLOW Work Phone: [facility] 05-05-2022 10:00-0500 Body height 177.7 cm Ángel Julio DO Work Phone: [facility] 05-05-2022 10:00-0500 Body weight 84.82 kg Ángel Maditz DO Work Phone: [facility] 05-05-2022 10:00-0500 Diastolic blood pressure 65 mm[Hg] Ángel Maditz DO Work Phone: [facility] 05-05-2022 10:00-0500 Heart rate 58 /min Ángel Maditz DO Work Phone: [facility] 05-05-2022 10:00-0500 Systolic blood pressure 149 mm[Hg] Ángel Maditz DO Work Phone: [facility] 03-08-2022 11:03-0500 Body temperature 97.59 [degF] Doyle Rankin MD Work Phone: [facility] 03-08-2022 11:03-0500 Body weight 84.82 kg Doyle Rankin MD Work Phone: [facility] 03-08-2022 11:03-0500 Diastolic blood pressure 65 mm[Hg] Doyle Rankin MD Work Phone: [facility] 03-08-2022 11:03-0500 Heart rate 53 /min Doyle Rankin MD Work Phone: [facility] 03-08-2022 11:03-0500 Respiratory rate 20 /min Doyle Rankin MD Work Phone: [facility] 03-08-2022 11:03-0500 SaO2% (BldA) [Mass fraction] 98 % Doyle Rankin MD Work Phone: [facility] 03-08-2022 11:03-0500 Systolic blood pressure 150 mm[Hg] Doyle aRnkin MD Work Phone: [facility] 11-22-2021 13:03-0400 Body temperature 97.81 [degF] Rafael Ramirez APRN.HOSPITAL FELLOW Work Phone: [facility] 11-22-2021 13:03-0400 Body weight 85.28 kg Rafael Ramirez APRN.HOSPITAL FELLOW Work Phone: [facility] 11-22-2021 13:03-0400 Diastolic blood pressure 70 mm[Hg] Rafael James HOT MOLDER.HOSPITAL FELLOW Work Phone: [facility] 11-22-2021 13:03-0400 Heart rate 74 /min Rafael James HOT MOLDER.HOSPITAL FELLOW Work Phone: [facility] 11-22-2021 13:03-0400 Respiratory rate 14 /min Rafael James HOT MOLDER.HOSPITAL FELLOW Work Phone: [facility] 11-22-2021 13:03-0400 Systolic blood pressure 122 mm[Hg] Rafael James HOT MOLDER.HOSPITAL FELLOW Work Phone: [facility] 08-08-2021 11:00-0400 Diastolic blood pressure 71 mm[Hg] Ángel Maditz DO Work Phone: [facility] 08-08-2021 11:00-0400 Heart rate 57 /min Ángel Maditz DO Work Phone: [facility] 08-08-2021 11:00-0400 Systolic blood pressure 131 mm[Hg] Ángel Maditz DO Work Phone: [facility] 08-08-2021 10:55-0400 Body height 177.8 cm Ángel Maditz DO Work Phone: [facility] 08-08-2021 10:55-0400 Body weight 86.18 kg Ángel Maditz DO Work Phone: [facility] 08-08-2021 10:55-0400 Respiratory rate 12 /min Ángel Maditz DO Work Phone: [facility] Encounters Encounter Date Encounter Type Care Provider Facility Start: 02-04-2024 End: 02-04-2024 ambulatory Rafael Ramirez HOT MOLDER.HOSPITAL FELLOW Work Phone: [facility] Comment on above: renetta had a kidney stone Start: 01-14-2024 End: 01-14-2024 Telephone encounter Gary Jodi Kelly DO Work Phone: Hematology/Oncology Comment on above: Results Start: 01-12-2024 ambulatory GARY KELLY Facility:1 [id number] Start: 01-12-2024 End: 01-12-2024 Subsequent hospital visit by physician [facility] Work Phone: Radiology CT Scan Comment on above: 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] Start: 12-31-2023 End: 12-31-2023 ambulatory Gary Kelly DO Work Phone: Hematology/Oncology Comment on above: Monoclonal gammopath y (Primary Dx) Start: 12-31-2023 End: 12-31-2023 Patient encounter procedure Gary Kelly DO Work Phone: Hematology/Oncology Start: 12-24-2023 End: 12-24-2023 ambulatory JENAE SAVAGE Facility:[facility] Start: 12-06-2023 End: 12-06-2023 Telephone encounter Elizabeth Avila APRN.HOSPITAL FELLOW Work Phone: [facility] Comment on above: Refill Request Start: 11-23-2023 End: 11-23-2023 ambulatory Rafael Ramirez APRN.HOSPITAL FELLOW Work Phone: [facility] [place] Comment on above: amlodipine Start: 11-23-2023 End: 11-23-2023 Office outpatient visit 25 minutes Rafael Ramirez APRN.HOSPITAL FELLOW Work Phone: [facility] Comment on above: Type 2 diabetes melvi itus with stage 3 chronic kidney disease, without long-term current use of insulin, unspecified whether stage 3a or 3b CKD (HCC) (Primary Dx); Stage 3b chronic kidney disease (HCC); Hyperlipidemia, unspecified hyperlipidemia type; Essential hypertension, benign; Gastroesophageal reflux disease without esophagitis Start: 11-16-2023 End: 11-16-2023 ambulatory RAFAEL RAMIREZ Facility:[facility] Start: 06-29-2023 End: 06-29-2023 ambulatory Ginger Khan Work Phone: Hematology/Oncology Comment on above: 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) Start: 06-29-2023 End: 06-29-2023 Patient encounter procedure Ginger Khan Work Phone: [facility] Start: 06-20-2023 End: 06-20-2023 ambulatory JENAE SAVAGE Facility:[facility] Start: 06-19-2023 Orders Only Gary Vasquez O Work Phone: Hematology/Oncology Comment on above: 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) Start: 06-11-2023 End: 06-11-2023 ambulatory ÁNGEL NORI Facility:[facility] Start: 06-11-2023 End: 06-11-2023 Patient encounter procedure Ángel Julio DO Work Phone: Kidney Medicine Comment on above: Stage 3b chronic kid doretha disease (HCC) (Primary Dx); Anemia of renal disease; Secondary renal hyperparathyroidism (HCC); Primary hypertension; Hyperlipidemia, unspecified hyperlipidemia type; Benign prostatic hyperplasia without lower urinary tract symptoms Start: 06-01-2023 End: 06-01-2023 ambulatory ÁNGEL JULIO Facility:[facility] Start: 05-25-2023 End: 05-25-2023 ambulatory RAFAEL RAMIREZ Facility:[facility] Start: 05-25-2023 End: 05-25-2023 Office outpatient visit 25 minutes Rafael Ramirez APRN.CNP Work Phone: [facility] Comment on above: Type 2 diabetes melvi itus with stage 3 chronic kidney disease, without long-term current use of insulin, unspecified whether stage 3a or 3b CKD (HCC) (Primary Dx); Stage 3b chronic kidney disease (HCC); Hyperlipidemia, unspecified hyperlipidemia type; Essential hypertension, benign; Gastroesophageal reflux disease without esophagitis Start: 05-22-2023 ambulatory Ángel Vasquez O Work Phone: Kidney Medicine Comment on above: up coming visit Start: 05-17-2023 End: 05-17-2023 ambulatory RAFAEL RAMIREZ Facility:[facility] Start: 02-15-2023 End: 02-15-2023 ambulatory JANUSZ DAVENPORT Facility:[facility] Start: 01-17-2023 End: 01-17-2023 ambulatory Immunization Clinic Nurse Shi Work Phone: [facility] [place] Start: 01-11-2023 End: 01-11-2023 Subsequent hospital visit by physician Us [facility] Work Phone: Radiology Comment on above: 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] Start: 12-05-2022 End: 12-05-2022 ambulatory Gary Jodi Robin DO Work Phone: Hematology/Oncology Comment on above: 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) Start: 12-05-2022 End: 12-05-2022 Patient encounter procedure Gary Kelly DO Work Phone: [facility] Start: 11-24-2022 End: 11-24-2022 Office outpatient visit 25 minutes Rafael Ramirez APRN.HOSPITAL FELLOW Work Phone: [facility] Comment on above: Type 2 diabetes melvi itus without complication, without long- term current use of insulin (HCC) (Primary Dx); Stage 3b chronic kidney disease (HCC); Hyperlipidemia, unspecified hyperlipidemia type; Essential hypertension, benign; ED (erectile dysfunction) of organic origin Start: 09-19-2022 Telephone encounter Elizabeth mendenhall APRN.HOSPITAL FELLOW Work Phone: [facility] Comment on above: Results (Chest Xray ) Start: 09-18-2022 End: 09-18-2022 Subsequent hospital visit by physician Mary [facility] Work Phone: Radiology Comment on above: Acute cough [R05.1] Start: 09-07-2022 End: 09-07-2022 Patient encounter procedure Elizabeth Avila APRN.HOSPITAL FELLOW Work Phone: [facility] Comment on above: Seasonal allergies ( Primary Dx) Start: 09-05-2022 ambulatory Jenae garcia MD Work Phone: [facility] Comment on above: schedule appt Start: 05-26-2022 End: 05-26-2022 Office outpatient visit 25 minutes Rafael Ramirez APRN.HOSPITAL FELLOW Work Phone: [facility] [place] Comment on above: Stage 3b chronic kid doretha disease (HCC) (Primary Dx); Type 2 diabetes mellitus without complication, without long-term current use of insulin (HCC); Hyperlipidemia, unspecified hyperlipidemia type; Essential hypertension, benign Start: 05-05-2022 End: 05-05-2022 Patient encounter procedure Ángel Julio Work Phone: Kidney Medicine Comment on above: [...] labs Start: 03-08-2022 End: 03-08-2022 ambulatory Doyle Raknin MD Work Phone: Hematology/Oncology Comment on above: 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) Start: 03-08-2022 End: 03-08-2022 Patient encounter procedure Doyle Rankin MD Work Phone: [facility] Start: 01-28-2022 End: 01-28-2022 ambulatory Immunization Clinic Nurse Shi Work Phone: [facility] [place] Comment on above: Arrived Start: 01-11-2022 End: 01-11-2022 Patient encounter procedure Janusz Davenport MD Work Phone: Urology Comment on above: Benign prostatic hyp erplasia without lower urinary tract symptoms (Primary Dx); Screening for genitourinary condition; Congenital multiple renal cysts; ED (erectile dysfunction) of organic origin; Stage 3b chronic kidney disease (HCC) Start: 11-22-2021 End: 11-22-2021 Office outpatient visit 25 minutes Rafael Ramirez APRN.CNP Work Phone: [facility] Comment on above: Type 2 diabetes melvi itus without complication, without long- term current use of insulin (HCC) (Primary Dx); Hyperlipidemia, unspecified hyperlipidemia type; Stage 3b chronic kidney disease (HCC); Essential hypertension, benign; Acute pulmonary embolism, unspecified pulmonary embolism type, unspecified whether acute cor pulmonale present (HCC); Dermatitis; Bilateral leg edema Start: 09-12-2021 ambulatory Rafael MCDONALD RN.HOSPITAL FELLOW Work Phone: [facility] Comment on above: stool sample Start: 09-09-2021 Telephone encounter Troy Stein MD Work Phone: [facility] Comment on above: Results; Orders Start: 09-07-2021 Telephone encounter Jenae henderson MD Work Phone: [facility] [place] Comment on above: Patient Question; Or ders [...] 06-26-2018 Patient encounter procedure JUAN MANUEL ALVARADO [facility] Start: 06-17-2018 Patient encounter procedure JUAN MANUEL ALVARADO Facility:[facility] Procedures Date Procedure Procedure Detail Performing Clinician Start: 01-17-2023 INFLUENZA VACCINE, PRSV FREE, AGE 65+ YR, HIGH DOSE, QUADRIVALENT (FLUZONE HIGH-DOSE) Mihai Carter MD Work Phone: Start: 01-11-2023 Us retroperitoneal real time w/image complete Janusz Davneport MD Work Phone: Start: 09-18-2022 Radiologic exam chest 2 views Elizabeth Avila HOT MOLDER.HOSPITAL FELLOW Work Phone: Start: 01-28-2022 INFLUENZA SEASONAL QUADRIVALENT HIGH DOSE AGE 65+ Igor Beasley MD Work Phone: Start: 01-11-2022 Urnls dip stick/tablet rgnt auto w/o microscopy Janusz Davenport MD Work Phone: Start: 08-10-2021 Urnls dip stick/tablet rgnt auto w/o microscopy Janusz Davenport MD Work Phone: Plan of Treatment Date Care Activity Detail Author Start: 03-08-2027 Urine microalbumin profile [facility] Start: 12-22-2024 End: 12-22-2024 ambulatory 12/22/2024 2:30 PM EDT Visit (SP) Office Hematology/Oncology [address], [place] [phone] Gary Kelly DO [address] [facility] [address] 1 YR OV/LABS 12/15* Hematology/Oncology Comment on above: 1 YR OV/LABS 12/15* Start: 12-15-2024 End: 12-15-2024 ambulatory 12/15/2024 10:00 AM EDT Results Only [facility] [address] [place] [address] CBC/CMP/Myeloma labs (no urine)* [facility] Comment on above: CBC/CMP/Myeloma labs (no urine)* Start: 11-15-2024 Hepatitis B surface antibody level LDL Cholesterol [facility] Start: 06-16-2024 End: 06-16-2024 Patient encounter procedure 06/16/2024 10:40 AM EDT Office Visit Kidney Medicine [id number] [place] [address] Ángel Julio DO [address] [place] [address] Return in about 1 year (around 06/10/2024). Kidney Medicine Comment on above: Return in about 1 ye ar (around 06/10/2024). Start: 05-30-2024 End: 05-30-2024 Patient encounter procedure 05/30/2024 1:00 PM EST Office Visit [facility] [address] [place], [place] [phone] Rafael Ramirez APRN.HOSPITAL FELLOW [address] [facility] [place] [id number] 6 month follow up [facility] Comment on above: 6 month follow [...] hypertension, benign Expected: 05/25/2024 (Approximate), Expires: 08/24/2024 [facility] Comment on above: Expected: 05/25/2024 (Approximate), Expires: 08/24/2024 Start: 05-25-2024 End: 08-24-2024 Comprehensive metabolic 2000 panel - Serum or Plasma COMPREHENSIVE METABOLIC PANEL Lab Routine Type 2 diabetes 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, without long-term current use of insulin, unspecified whether stage 3a or 3b CKD (HCC) Stage 3b chronic kidney disease (HCC) Essential hypertension, benign Expected: 05/25/2024 (Approximate), Expires: 08/24/2024 [facility] Comment on above: Expected: 05/25/2024 (Approximate), Expires: 08/24/2024 Start: 05-25-2024 Covid-19 Vaccine () Covid-19 Vaccine () [facility] Comment on above: Postponed from 12/08 (Declined at this time) Start: 05-25-2024 End: 08-24-2024 Hemoglobin A1c in Blood HEMOGLOBIN A1C Lab Routine Type 2 diabetes 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, without long-term current use of insulin, unspecified whether stage 3a or 3b CKD (HCC) Expected: 05/25/2024 (Approximate), Expires: 08/24/2024 [facility] Work Phone: Comment on above: Expected: 05/25/2024 (Approximate), Expires: 08/24/2024 Start: 05-25-2024 End: 08-24-2024 Lipid 1996 panel - Serum or Plasma LIPID PANEL BASIC Lab Routine Type 2 diabetes 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, without long-term current use of insulin, unspecified whether stage 3a or 3b CKD (HCC) Hyperlipidemia, unspecified hyperlipidemia type Expected: 05/25/2024 (Approximate), Expires: 08/24/2024 [facility] Comment on above: Expected: 05/25/2024 (Approximate), Expires: 08/24/2024 Start: 05-25-2024 End: 08-24-2024 Microalbumin/Creatinine [Mass Ratio] in Urine ALBUMIN/CREATININE RATIO, URINE Lab Routine Type 2 diabetes 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, without long-term current use of insulin, unspecified whether stage 3a or 3b CKD (HCC) Expected: 05/25/2024 (Approximate), Expires: 08/24/2024 [facility] Comment on above: Expected: 05/25/2024 (Approximate), Expires: 08/24/2024 Start: 05-25-2024 RSV Vaccine (1 - 1-d ose 60+ series) RSV Vaccine (1 - 1-dose 60+ series) [facility] Comment on above: Postponed from 12/12 (Insurance Coverage) Start: 05-25-2024 RSV Vaccine (1 - 1-d ose 75+ series) RSV Vaccine (1 - 1-dose 75+ series) [facility] Comment on above: Postponed from 12/12 (Insurance Coverage) Start: 05-18-2024 Hemoglobin A1c measurement HbA1C [facility] Start: 05-17-2024 Hepatitis B screening Urine Al bumin:Creatinine Ratio [facility] Start: 05-17-2024 Hepatitis B surface antibody level LDL Cholesterol [facility] Start: 02-19-2024 End: 02-19-2024 Patient encounter procedure 02/19/2024 2:00 PM EST Office Visit Urology [address] [place], [place] [id number] Janusz Davenport MD [address] [place] [address] follow up 1 year Urology Comment on above: follow up 1 year Start: 01-12-2024 End: 01-12-2024 Patient encounter procedure 01/12/2024 3:30 PM EDT Appointment Radiology CT Scan [address] [place] [address] Monoclonal gammopathy [D47.2] Radiology CT Scan Comment on above: 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] Start: 12-31-2023 End: 12-31-2023 ambulatory 12/31/2023 2:30 PM EDT Visit (SP) Office Hematology/Oncology [address] [place] [address] Gary Kelly DO [address] [place] [address] 6MO OV/LABS EARLY* Hematology/Oncology Comment on above: 6MO OV/LABS EARLY* Start: 12-24-2023 End: 12-24-2023 ambulatory 12/24/2023 11:00 AM EDT Results Only [facility] [address] [place] [address] CBC/MM LABS* [facility] Comment on above: CBC/MM LABS* Start: 12-09-2023 Covid-19 Vaccine ( season) Covid-19 Vaccine ( season) [facility] Start: 12-09-2023 Covid-19 Vaccine ( season) Covid-19 Vaccine ( season) [facility] Start: 12-09-2023 Influenza vaccination Influenza Vacc ine (#1) [facility] Start: 11-23-2023 End: 02-22-2024 Comprehensive metabolic 2000 panel - Serum or Plasma COMP METABOLIC PANEL Lab Routine Stage 3b chronic kidney disease (HCC) Essential hypertension, benign Type 2 diabetes 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, without long-term current use of insulin, unspecified whether stage 3a or 3b CKD (HCC) Expected: 11/23/2023 (Approximate), Expires: 02/22/2024 [facility] Work Phone: Comment on above: Expected: 11/23/2023 (Approximate), Expires: 02/22/2024 Start: 11-23-2023 End: 02-22-2024 Hemoglobin A1c in Blood HGB A1C Lab Routine Type 2 diabetes 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, without long-term current use of insulin, unspecified whether stage 3a or 3b CKD (HCC) Expected: 11/23/2023 (Approximate), Expires: 02/22/2024 [facility] Work Phone: Comment on above: Expected: 11/23/2023 (Approximate), Expires: 02/22/2024 Start: 11-23-2023 End: 02-22-2024 Lipid 1996 panel - Serum or Plasma LIPID PANEL BASIC Lab Routine Hyperlipidemia, unspecified hyperlipidemia type Type 2 diabetes 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, without long-term current use of insulin, unspecified whether stage 3a or 3b CKD (HCC) Expected: 11/23/2023 (Approximate), Expires: 02/22/2024 [facility] Work Phone: Comment on above: Expected: 11/23/2023 (Approximate), Expires: 02/22/2024 Start: 11-15-2023 Hemoglobin A1c measurement HbA1C [facility] Start: 06-20-2023 End: 09-19-2023 Empo-1-Vrhsbkivcavht [Mass/volume] in Serum or Plasma B2 MICROGLOBULIN B Lab Routine MGUS (monoclonal gammopathy of unknown significance) Expected: 06/20/2023, Expires: 09/19/2023 [facility] Work Phone: Comment on above: Expected: 06/20/2023 , Expires: 09/19/2023 Start: 06-20-2023 End: 09-19-2023 CBC W Auto Differential panel - Blood CBC + DIFF Lab STAT MGUS (monoclonal gammopathy of unknown significance) Expected: 06/20/2023, Expires: 09/19/2023 [facility] Work Phone: Comment on above: Expected: 06/20/2023 , Expires: 09/19/2023 Start: 06-20-2023 End: 09-19-2023 Comprehensive metabolic 2000 panel - Serum or Plasma COMP METABOLIC PANEL Lab STAT MGUS (monoclonal gammopathy of unknown significance) Expected: 06/20/2023, Expires: 09/19/2023 [facility] Work Phone: Comment on above: Expected: 06/20/2023 , Expires: 09/19/2023 Start: 06-20-2023 End: 09-19-2023 IMMUNOGLOBULINS ARIANE IMMUNOGLOBULINS ARIANE Lab Routine MGUS (monoclonal gammopathy of unknown significance) Expected: 06/20/2023, Expires: 09/19/2023 [facility] Work Phone: Comment on above: Expected: 06/20/2023 , Expires: 09/19/2023 Start: 06-20-2023 End: 09-19-2023 KAPPA/CHRISTIE,FREE,SER KAPPA/CHRISTIE,FREE,SER Lab Routine MGUS (monoclonal gammopathy of unknown significance) Expected: 06/20/2023, Expires: 09/19/2023 [facility] Work Phone: Comment on above: Expected: 06/20/2023 , Expires: 09/19/2023 Start: 06-20-2023 End: 09-19-2023 Lactate dehydrogenase [Enzymatic activity/volume] in Serum or Plasma LD LACTATE DEHYDRO Lab Routine MGUS (monoclonal gammopathy of unknown significance) Expected: 06/20/2023, Expires: 09/19/2023 [facility] Work Phone: Comment on above: Expected: 06/20/2023 , Expires: 09/19/2023 Start: 06-20-2023 End: 09-19-2023 MONOCLONAL PROTEIN, SERUM (BLOOD) MONOCLONAL PROTEIN, SERUM (BLOOD) Lab Routine MGUS (monoclonal gammopathy of unknown significance) Expected: 06/20/2023, Expires: 09/19/2023 [facility] Work Phone: Comment on above: Expected: 06/20/2023 , Expires: 09/19/2023 Start: 06-20-2023 End: 09-19-2023 PROTEIN ELECTROPHORESIS SERUM W/INTERP PROTEIN ELECTROPHORESIS SERUM W/INTERP Lab Routine MGUS (monoclonal gammopathy of unknown significance) Expected: 06/20/2023, Expires: 09/19/2023 [facility] Work Phone: Comment on above: Expected: 06/20/2023 , Expires: 09/19/2023 Start: 06-10-2023 Glaucoma screening Dilated Retinal E xam [facility] Start: 06-10-2023 Hepatitis C antibody , confirmatory test DILATED RETINAL EXAM [facility] Start: 05-27-2023 End: 07-27-2023 ALBUMIN/CREAT RATIO RND UR ALBUMIN/CREAT RATIO RND UR Lab Routine Type 2 diabetes mellitus without complication, without long-term current use of insulin (HCC) Expected: 05/27/2023 (Approximate), Expires: 07/27/2023 [facility] Work Phone: Comment on above: Expected: 05/27/2023 (Approximate), Expires: 07/27/2023 Start: 05-27-2023 End: 07-27-2023 Comprehensive metabolic 2000 panel - Serum or Plasma COMP METABOLIC PANEL Lab Routine Stage 3b chronic kidney disease (HCC) Type 2 diabetes mellitus without complication, without long-term current use of insulin (HCC) Expected: 05/27/2023 (Approximate), Expires: 07/27/2023 [facility] Work Phone: Comment on above: Expected: 05/27/2023 (Approximate), Expires: 07/27/2023 Start: 05-27-2023 End: 07-27-2023 Hemoglobin A1c in Blood HGB A1C Lab Routine Type 2 diabetes mellitus without complication, without long-term current use of insulin (HCC) Expected: 05/27/2023 (Approximate), Expires: 07/27/2023 [facility] Work Phone: Comment on above: Expected: 05/27/2023 (Approximate), Expires: 07/27/2023 Start: 05-27-2023 End: 07-27-2023 Lipid 1996 panel - Serum or Plasma LIPID PANEL BASIC Lab Routine Hyperlipidemia, unspecified hyperlipidemia type Expected: 05/27/2023 (Approximate), Expires: 07/27/2023 [facility] Work Phone: Comment on above: Expected: 05/27/2023 (Approximate), Expires: 07/27/2023 Start: 05-23-2023 End: 08-22-2023 CBC panel - Blood by Automated count CBC Lab Routine Stage 3 chronic kidney disease, unspecified whether stage 3a or 3b CKD (HCC) Expected: 05/23/2023, Expires: 08/22/2023 [facility] Work Phone: Comment on above: Expected: 05/23/2023 , Expires: 08/22/2023 Start: 05-23-2023 End: 08-22-2023 Protein/Creatinine [Mass Ratio] in Urine PROTEIN CREATININE RATIO Lab Routine Stage 3 chronic kidney disease, unspecified whether stage 3a or 3b CKD (HCC) Expected: 05/23/2023, Expires: 08/22/2023 [facility] Work Phone: Comment on above: Expected: 05/23/2023 , Expires: 08/22/2023 Start: 05-23-2023 End: 08-22-2023 Urinalysis complete panel - Urine URINALYSIS, WITH MICROSCOPIC Lab Routine Stage 3 chronic kidney disease, unspecified whether stage 3a or 3b CKD (HCC) Expected: 05/23/2023, Expires: 08/22/2023 [facility] Work Phone: Comment on above: Expected: 05/23/2023 , Expires: 08/22/2023 Start: 05-20-2023 Hepatitis B surface antibody level LDL CHOLESTEROL [facility] Start: 05-04-2023 Hemoglobin A1c/Hemoglobin.total in Blood HBA1C [facility] Start: 04-09-2023 Advance Directive Discussion Advance Directive Discussion [facility] Start: 04-09-2023 Depression Assessment Depression Ass essment [facility] Start: 01-11-2023 End: 02-11-2023 US KIDNEY/BLADDER US KIDNEY/BLADDER Radiology Routine Congenital multiple renal cysts Expected: 01/11/2023, Expires: 02/11/2023 [facility] Work Phone: Comment on above: Expected: 01/11/2023 , Expires: 02/11/2023 Start: 12-08-2022 Covid-19 Vaccine ( season) Covid-19 Vaccine ( season) [facility] Start: 12-08-2022 Influenza vaccination INFLUENZA (#1) [facility] Start: 12-06-2022 End: 02-05-2023 CBC W Auto Differential panel - Blood CBC + DIFF Lab Routine MGUS (monoclonal gammopathy of unknown significance) Expected: 12/06/2022, Expires: 02/05/2023 [facility] Work Phone: Comment on above: Expected: 12/06/2022 , Expires: 02/05/2023 Start: 12-06-2022 End: 02-05-2023 Comprehensive metabolic 2000 panel - Serum or Plasma COMP METABOLIC PANEL Lab Routine MGUS (monoclonal gammopathy of unknown significance) Expected: 12/06/2022, Expires: 02/05/2023 [facility] Work Phone: Comment on above: Expected: 12/06/2022 , Expires: 02/05/2023 Start: 12-06-2022 End: 02-05-2023 MONOCLONAL PROTEIN, SERUM (BLOOD) MONOCLONAL PROTEIN, SERUM (BLOOD) Lab Routine MGUS (monoclonal gammopathy of unknown significance) Expected: 12/06/2022, Expires: 02/05/2023 [facility] Work Phone: Comment on above: Expected: 12/06/2022 , Expires: 02/05/2023 Start: 12-06-2022 End: 02-05-2023 PROTEIN ELECTROPHORESIS SERUM W/INTERP PROTEIN ELECTROPHORESIS SERUM W/INTERP Lab Routine MGUS (monoclonal gammopathy of unknown significance) Expected: 12/06/2022, Expires: 02/05/2023 [facility] Work Phone: Comment on above: Expected: 12/06/2022 , Expires: 02/05/2023 Start: 11-23-2022 End: 01-23-2023 Comprehensive metabolic 2000 panel - Serum or Plasma COMP METABOLIC PANEL Lab Routine Type 2 diabetes mellitus without complication, without long-term current use of insulin (HCC) Essential hypertension, benign Expected: 11/23/2022 (Approximate), Expires: 01/23/2023 [facility] Work Phone: Comment on above: Expected: 11/23/2022 (Approximate), Expires: 01/23/2023 Start: 11-23-2022 End: 01-23-2023 Hemoglobin A1c in Blood HGB A1C Lab Routine Type 2 diabetes mellitus without complication, without long-term current use of insulin (HCC) Expected: 11/23/2022 (Approximate), Expires: 01/23/2023 [facility] Work Phone: Comment on above: Expected: 11/23/2022 (Approximate), Expires: 01/23/2023 Start: 11-17-2022 Hemoglobin A1c/Hemoglobin.total in Blood HBA1C [facility] Start: 06-23-2022 Hepatitis B surface antibody level LDL CHOLESTEROL [facility] Start: 06-20-2022 FECAL OCCULT BLOOD FECAL OCCULT BLOO D [facility] Start: 05-25-2022 End: 07-25-2022 Comprehensive metabolic 2000 panel - Serum or Plasma COMP METABOLIC PANEL Lab Routine Stage 3b chronic kidney disease (HCC) Essential hypertension, benign Expected: 05/25/2022 (Approximate), Expires: 07/25/2022 [facility] Work Phone: Comment on above: Expected: 05/25/2022 (Approximate), Expires: 07/25/2022 Start: 05-25-2022 End: 07-25-2022 Hemoglobin A1c in Blood HGB A1C Lab Routine Type 2 diabetes mellitus without complication, without long-term current use of insulin (HCC) Expected: 05/25/2022 (Approximate), Expires: 07/25/2022 [facility] Work Phone: Comment on above: Expected: 05/25/2022 (Approximate), Expires: 07/25/2022 Start: 05-25-2022 End: 07-25-2022 Lipid 1996 panel - Serum or Plasma LIPID PANEL BASIC Lab Routine Hyperlipidemia, unspecified hyperlipidemia type Expected: 05/25/2022 (Approximate), Expires: 07/25/2022 [facility] Work Phone: Comment on above: Expected: 05/25/2022 (Approximate), Expires: 07/25/2022 Start: 05-21-2022 Hepatitis B screening URINE AL BUMIN:CREATININE RATIO [facility] Start: 05-20-2022 Hemoglobin A1c/Hemoglobin.total in Blood HBA1C [facility] Start: 04-24-2022 End: 06-24-2022 Renal function 2000 panel - Serum or Plasma RENAL FUNCTION PANEL Lab Routine Stage 3b chronic kidney disease (HCC) Expected: 04/24/2022, Expires: 06/24/2022 [facility] Work Phone: Comment on above: Expected: 04/24/2022 , Expires: 06/24/2022 Start: 04-09-2022 ADVANCE DIRECTIVE DISCUSSION ADVANCE DIRECTIVE DISCUSSION [facility] Start: 04-09-2022 DEPRESSION ASSESSMENT DEPRESSION ASS ESSMENT [facility] Start: 01-20-2022 Hepatitis C antibody , confirmatory test DILATED RETINAL EXAM [facility] Start: 01-09-2022 End: 09-10-2022 US KIDNEY/BLADDER US KIDNEY/BLADDER Radiology Routine Congenital multiple renal cysts Expected: 01/09/2022, Expires: 09/10/2022 [facility] Work Phone: Comment on above: Expected: 01/09/2022 , Expires: 09/10/2022 Start: 12-24-2021 Hemoglobin A1c/Hemoglobin.total in Blood HBA1C [facility] Start: 12-08-2021 Influenza vaccination INFLUENZA (#1) [facility] Start: 08-08-2021 End: 10-08-2021 MONOCLONAL PROTEIN, SERUM (BLOOD) [facility] Work Phone: Comment on above: Expected: 08/08/2021 , Expires: 10/08/2021 Start: 08-08-2021 End: 08-08-2022 PTH INTACT BLD [facility] Work Phone: Comment on above: Expected: 08/08/2021 , Expires: 08/08/2022 Start: 08-08-2021 End: 08-08-2022 VITAMIN D 25 HYDROXY [facility] Work Phone: Comment on above: Expected: 08/08/2021 , Expires: 08/08/2022 Start: 06-22-2021 COVID-19 VACCINE (4 - Booster for Moderna series) COVID-19 VACCINE (4 - Booster for Moderna series) [facility] Start: 04-19-2021 COVID-19 VACCINE (4 - Booster for Moderna series) COVID-19 VACCINE (4 - Booster for Moderna series) [facility] Start: 04-19-2021 COVID-19 VACCINE (4 - Moderna series) COVID-19 VACCINE (4 - Moderna series) [facility] Start: 04-09-2021 ADVANCE DIRECTIVE DISCUSSION ADVANCE DIRECTIVE DISCUSSION [facility] Start: 04-09-2021 DEPRESSION ASSESSMENT DEPRESSION ASS ESSMENT [facility] Start: 06-06-2020 3 comp foot exam completed DIABETIC FOOT EXAM [facility] Start: 06-06-2020 Diabetic foot examination Diabetic F oot Exam [facility] Start: 04-07-2013 SHINGRIX VACCINE (2 of 3) BARNARD GRIX VACCINE (2 of 3) [facility] Start: 1999 Hepatitis B Vaccine (1 of 3 - Risk 3-dose series) Hepatitis B Vaccine (1 of 3 - Risk 3-dose series) [facility] Start: 1999 RSV Vaccine (1 - 1-d ose 60+ series) RSV Vaccine (1 - 1-dose 60+ series) [facility] Start: 12-12-1957 Anxiety Screening Anxiety Screening [facility] Start: 12-12-1957 Depression Screening Depression Scre ening [facility] End: 08-08-2022 CBC panel - Blood by Automated count CBC Lab Routine Stage 3b chronic kidney disease (HCC) Every 6 months for 3 Occurrences starting 08/08/2021 until 08/08/2022, 1 completed [facility] Work Phone: Comment on above: Every 6 months for 3 Occurrences starting 08/08/2021 until 08/08/2022, 1 completed End: 05-05-2023 CBC panel - Blood by Automated count CBC Lab Routine Stage 3b chronic kidney disease (HCC) Every 6 months for 3 Occurrences starting 05/05/2022 until 05/05/2023 [facility] Work Phone: Comment on above: Every 6 months for 3 Occurrences starting 05/05/2022 until 05/05/2023 End: 01-29-[address] WHOLE BODY SKULL TO KNEE WO IVCON Radiology Routine Monoclonal gammopathy 1 Occurrences starting 12/31/2023 until 01/29/2025 [facility] Work Phone: Comment on above: 1 Occurrences starti ng 12/31/2023 until 01/29/2025 End: 01-12-2024 CT Whole body [facility] Work Phone: Comment on above: 1 Occurrences starti ng 01/12/2024 until 01/12/2024 Gastrointestinal pathogens panel - Stool by Culture STOOL CULTURE/EIA Microbiology Routine Diarrhea, unspecified type Ordered: 09/07/2021 [facility] Work Phone: Comment on above: Ordered: 09/07/2021 Giardia lamblia+Cryptosporidium sp Ag [Presence] in Stool by Immunoassay CRYPTOSPORIDIUM AND GIARDIA ANTIGENS BY EIA Microbiology Routine Diarrhea, unspecified type Ordered: 09/07/2021 [facility] Work Phone: Comment on above: Ordered: 09/07/2021 Giardia lamblia+Cryptosporidium sp Ag [Presence] in Stool by Immunoassay CRYPTOSPORIDIUM AND GIARDIA ANTIGENS BY EIA Microbiology Routine Diarrhea, unspecified type Ordered: 09/09/2021 [facility] Work Phone: Comment on above: Ordered: 09/09/2021 MONOCLONAL PROT 24 U R W/INTERP MONOCLONAL PROT 24 UR W/INTERP Lab Routine MGUS (monoclonal gammopathy of unknown significance) Ordered: 12/05/2022 [facility] Work Phone: Comment on above: Ordered: 12/05/2022 MONOCLONAL PROT 24 U R W/INTERP MONOCLONAL PROT 24 UR W/INTERP Lab Routine MGUS (monoclonal gammopathy of unknown significance) Ordered: 06/19/2023 [facility] Work Phone: Comment on above: Ordered: 06/19/2023 PROT ELEC UR 24HR W/ M SPIKE (P) PROT ELEC UR 24HR W/M SPIKE (P) Lab Routine MGUS (monoclonal gammopathy of unknown significance) Ordered: 12/05/2022 [facility] Work Phone: Comment on above: Ordered: 12/05/2022 PROT ELEC UR 24HR W/ M SPIKE (P) PROT ELEC UR 24HR W/M SPIKE (P) Lab Routine MGUS (monoclonal gammopathy of unknown significance) Ordered: 06/19/2023 [facility] Work Phone: Comment on above: Ordered: 06/19/2023 PROT ELEC UR 24HR W/ M SPIKE AND INTERP PROT ELEC UR 24HR W/M SPIKE AND INTERP Lab Routine MGUS (monoclonal gammopathy of unknown significance) Ordered: 12/05/2022 [facility] Work Phone: Comment on above: Ordered: 12/05/2022 PROT ELEC UR 24HR W/ M SPIKE AND INTERP PROT ELEC UR 24HR W/M SPIKE AND INTERP Lab Routine MGUS (monoclonal gammopathy of unknown significance) Ordered: 06/19/2023 [facility] Work Phone: Comment on above: Ordered: 06/19/2023 Protein [Mass/time] in 24 hour Urine PROTEIN 24 HR URINE Lab Routine MGUS (monoclonal gammopathy of unknown significance) Ordered: 12/05/2022 [facility] Work Phone: Comment on above: Ordered: 12/05/2022 Protein [Mass/time] in 24 hour Urine PROTEIN 24 HR URINE Lab Routine MGUS (monoclonal gammopathy of unknown significance) Ordered: 06/19/2023 [facility] Work Phone: Comment on above: Ordered: 06/19/2023 End: 08-08-2022 Protein/Creatinine [Mass Ratio] in Urine PROTEIN CREATININE RATIO Lab Routine Stage 3b chronic kidney disease (HCC) Every 6 months for 3 Occurrences starting 08/08/2021 until 08/08/2022 [facility] Work Phone: Comment on above: Every 6 months for 3 Occurrences starting 08/08/2021 until 08/08/2022 Protein/Creatinine [ Mass Ratio] in Urine PROTEIN CREATININE RATIO Lab Routine Stage 3b chronic kidney disease (HCC) 08/08/2021 12:41 PM EDT [facility] Work Phone: End: 05-05-2023 Protein/Creatinine [Mass Ratio] in Urine PROTEIN CREATININE RATIO Lab Routine Stage 3b chronic kidney disease (HCC) Every 6 months for 3 Occurrences starting 05/05/2022 until 05/05/2023 [facility] Work Phone: Comment on above: Every 6 months for 3 Occurrences starting 05/05/2022 until 05/05/2023 End: 08-08-2022 Renal function 2000 panel - Serum or Plasma RENAL FUNCTION PANEL Lab Routine Stage 3b chronic kidney disease (HCC) Every 6 months for 3 Occurrences starting 08/08/2021 until 08/08/2022 [facility] Work Phone: Comment on above: Every 6 months for 3 Occurrences starting 08/08/2021 until 08/08/2022 Renal function 2000 panel - Serum or Plasma RENAL FUNCTION PANEL Lab Routine Stage 3b chronic kidney disease (HCC) 08/08/2021 12:25 PM EDT [facility] Work Phone: End: 05-05-2023 Renal function 2000 panel - Serum or Plasma RENAL FUNCTION PANEL Lab Routine Stage 3b chronic kidney disease (HCC) Every 6 months for 3 Occurrences starting 05/05/2022 until 05/05/2023 [facility] Work Phone: Comment on above: Every 6 months for 3 Occurrences starting 05/05/2022 until 05/05/2023 End: 08-08-2022 Urinalysis complete panel - Urine URINALYSIS, WITH MICROSCOPIC Lab Routine Stage 3b chronic kidney disease (HCC) Every 6 months for 3 Occurrences starting 08/08/2021 until 08/08/2022 [facility] Work Phone: Comment on above: Every 6 months for 3 Occurrences starting 08/08/2021 until 08/08/2022 Urinalysis complete panel - Urine URINALYSIS, WITH MICROSCOPIC Lab Routine Stage 3b chronic kidney disease (HCC) 08/08/2021 12:41 PM BandPageT [facility] Work Phone: End: 05-05-2023 Urinalysis complete panel - Urine URINALYSIS, WITH MICROSCOPIC Lab Routine Stage 3b chronic kidney disease (HCC) Every 6 months for 3 Occurrences starting 05/05/2022 until 05/05/2023 [facility] Work Phone: Comment on above: Every 6 months for 3 Occurrences starting 05/05/2022 until 05/05/2023 [facility] Immunizations Immunization Date Immunization Notes Care Provider Leah [facility] 01-17-2023 influenza (HD-IIV4) vaccine, age 65+ yr, high dose, quadrivalent, PF (FLUZONE HIGH-DOSE) Immunization Shi Work Phone: [facility] Work Phone: 01-17-2023 influenza virus vaccine, unspecified formulation Rafael Ramirez APRN.HOSPITAL FELLOW Work Phone: [facility] 01-28-2022 influenza, high-dose , quadrivalent vaccine (FLUZONE HIGH DOSE QUADRIVALENT) Immunization [place] Work Phone: [facility] 01-15-2021 influenza, high-dose , quadrivalent vaccine (FLUZONE HIGH DOSE QUADRIVALENT) Ángel Julio DO Work Phone: [facility] 07-05-2020 COVID-19 vaccine, fu ll dose (MODERNA) Ángel Julio DO Work Phone: [facility] 06-07-2020 COVID-19 vaccine, fu ll dose (MODERNA) Ángel Julio DO Work Phone: [facility] 01-09-2020 influenza, high-dose , quadrivalent vaccine (FLUZONE HIGH DOSE QUADRIVALENT) Ángel Julio DO Work Phone: [facility] Work Phone: 02-01-2019 influenza, high dose seasonal, preservative-free Ángel Nori DO Work Phone: [facility] 03-18-2018 influenza, seasonal, injectable Ángel Maditz DO Work Phone: [facility] Work Phone: 02-01-2018 influenza, high dose seasonal, preservative-free Ángel Maditz DO Work Phone: [facility] Work Phone: 03-08-2017 tetanus toxoid, redu jeannie diphtheria toxoid, and acellular pertussis vaccine, adsorbed Ángel Julio DO Work Phone: [facility] 01-12-2017 influenza, high dose seasonal, preservative-free Ángel Nori DO Work Phone: [facility] 01-29-2016 influenza, high dose seasonal, preservative-free Ángel Maditz DO Work Phone: [facility] Work Phone: 05-10-2015 pneumococcal polysaccharide vaccine, 23 valent Ángel Julio DO Work Phone: [facility] 02-17-2015 influenza, high dose seasonal, preservative-free Ángelpilar Julio DO Work Phone: [facility] Work Phone: 06-20-2014 diphtheria, tetanus toxoids and pertussis vaccine Ángelpilar Julio DO Work Phone: [facility] Work Phone: 06-20-2014 tetanus toxoid, redu jeannie diphtheria toxoid, and acellular pertussis vaccine, adsorbed Ángel Julio DO Work Phone: [facility] Work Phone: 05-11-2014 pneumococcal conjuga te vaccine, 13 valent Ángel Julio DO Work Phone: [facility] 02-04-2014 influenza, seasonal, injectable Ángel Madcorbin DO Work Phone: [facility] [facility] Work Phone: 02-10-2013 zoster vaccine, live Ángel huang DO Work Phone: [facility] 01-18-2013 influenza virus vaccine, unspecified formulation Ángel Julio DO Work Phone: [facility] 02-22-2012 influenza virus vaccine, unspecified formulation Ángel Julio DO Work Phone: [facility] 01-18-2011 influenza virus vaccine, unspecified formulation Ángel Julio DO Work Phone: [facility] 03-01-2010 influenza virus vaccine, unspecified formulation Ángel Julio DO Work Phone: [facility] Work Phone: 12-29-2008 influenza virus vaccine, unspecified formulation Ángel Julio DO Work Phone: [facility] 02-13-2008 influenza virus vaccine, unspecified formulation Ángel Julio DO Work Phone: [facility] Work Phone: 02-12-2007 influenza virus vaccine, unspecified formulation Ángel Julio DO Work Phone: [facility] 02-14-2006 influenza virus vaccine, unspecified formulation Ángel Julio DO Work Phone: [facility] 07-17-2005 tetanus and diphther ia toxoids, adsorbed, preservative free, for adult use (2 Lf of tetanus toxoid and 2 Lf of diphtheria toxoid) Ángel Julio DO Work Phone: [facility] 03-25-2001 pneumococcal polysaccharide vaccine, 23 valent Ángel Julio DO Work Phone: [facility] Work Phone: Payers Date Payer Category Payer Private Health Insurance AETNA A ETNA MEDICARE SUPPLEMENT [id number] 2020-Present [phone] [address] [address] [place] [address] Indemnity [id number] 2020 Private Health Insurance [id number] 2020 Medicare [id number] 2004 Medicare MEDICARE MEDICAR E A AND B [id number] 2004-Present [phone] [place] [address] Medicare [id number] 2004 Medicare MEDICARE MEDICAR E A AND B [id number] 2004-Present [phone] [place] [address] Medicare [id number] 2004 Medicare [id number] 1940 Unknown [id number] 1940 Unknown [id number] Medicare [id number] Social History Date Type Detail Facility Start: 07-02-2014 End: 11-22-2021 Tobacco smoking status NHIS Ex-smoker [facility] Work Phone: Start: 04-09-1968 End: 04-09-1978 History of tobacco use Current smoker [facility] Work Phone: Start: 07-02-2014 End: 09-07-2022 Cigarettes smoked current (pack per day) - Reported 0.5 [facility] Start: 07-02-2014 End: 11-22-2021 Tobacco use and exposure Smokeless tobacco non-user [facility] Work Phone: Start: 08-08-2021 End: 12-31-2023 Alcohol intake Current non-drinker of alcohol (finding) [facility] Start: 05-30-2020 History SDOH Alcohol Frequency 2 [facility] Start: 05-30-2020 History SDOH Alcohol Std Drinks 98 [facility] Start: 05-30-2020 History SDOH Alcohol Binge 1 [facility] Start: 05-30-2020 History SDOH Social Connections Phone 3 [facility] Start: 05-30-2020 History SDOH Physical Activity DPW 7 [facility] Start: 05-30-2020 History SDOH Physical Activity MPS 12 [facility] Start: 05-30-2020 History SDOH Financial 5 [facility] Start: 05-30-2020 Education 15 [facility] Start: 07-02-2014 End: 11-22-2021 Tobacco Comment quit 50 years ago [facility] Start: 1940 Sex Assigned At Male [facility] Start: 07-29-2021 End: 03-08-2022 Exposure to SARS-CoV-2 (event) Not sure [facility] Start: 04-09-1968 End: 04-09-1978 History of tobacco use Cigarette Smoker [facility] Start: 05-30-2020 End: 09-07-2022 Social connection and isolation panel [facility] Do you belong to any clubs or organizations such as rastafarian groups, unions, fraternal or athletic groups, or school groups? Yes [facility] Are you now , , , , never or living with a partner? [facility] How often to you hav e a drink containing alcohol? Monthly or less [facility] How many standard dr inks containing alcohol do you have on a typical day? Patient refused [facility] How often do you hav e 6 or more drinks on 1 occasion? Never [facility] Do you feel stress - tense, restless, nervous, or anxious, or unable to sleep at night because your mind is troubled all the time - these days [OSQ] Not at all [facility] (I/We) worried wheth er (my/our) food would run out before (I/we) got money to buy more. Never true [facility] In the past 12 month s, was there a time when you were not able to pay the mortgage or rent on time? No [facility] Start: 08-07-2021 Gender identity Identifies as male gender (finding) [facility] Start: 05-01-2022 Sexual orientation Heterosexual (finding) [facility] Medical Equipment Procedure Code Equipment Code Equipment Origin al Text Equipment Identifier Dates Test blood sugar(s) 1 times daily. Dx: Type 2 DM - Controlled E11.9 Insulin: No [id number] Start: 10-19-2016 End: 05-26-2022 Comment on above: Test blood sugar(s) 1 times daily. Dx: Type 2 DM - Controlled E11.9 Insulin: No Glucometer with test strips (whatever is covered by insurance) Dx: E11.9 Testing once per day Start: 10-17-2016 End: 05-26-2022 Comment on above: Glucometer with test strips (whatever is covered by insurance) Dx: E11.9 Testing once per day Clinical Notes 08-08-2021 to 02-04-2024 Telephone Encounter - Kinza Wasserman MA - 02/04/2024 2:19 PM EDTTelephone Encounter - Kinza Wasserman MA - 02/04/2024 2:19 PM EDTTelephone Encounter - Ninfa Bryson LPN - 01/14/2024 1:40 PM EDT Note Date & Type Note Facility 02-04-2024 Telephone encounter Note Do you want pt to schedule a f/u or okay with appt to see Uro as scheduled. Kinza Wasserman MA [facility] 02-04-2024 Miscellaneous Notes Do you want pt to schedule a f/u or okay with appt to see Uro as scheduled. Kinza Wasserman MA documented in this encounter [facility] 01-14-2024 Telephone encounter Note Spoke with pts. , informed CT looks good, F/U in 1 year as scheduled. Also sent information to pt. Via my chart. Ninfa Bryson LPN [facility] 01-14-2024 Miscellaneous Notes Spoke with pts. , informed CT looks good, F/U in 1 year as scheduled. Also sent information to pt. Via my chart. Ninfa Bryson LPN Can let him know the recent CT scan showed his bones still look good. Can follow-up next year as scheduled. documented in this encounter [facility] 01-14-2024 Telephone encounter Note Can let him know the recent CT scan showed his bones still look good. Can follow-up next year as scheduled. [facility] Work Phone: 12-31-2023 Note HNO ID: [id number] Author: GARY KELLY DO Service: ? Author Type: Physician Type: [...] SINGLE/MULTIPLE 04/24/2006 CYSTOURETHROSCOPY 08/21/2002 Cystoscopy; Dr. Ortiz Avallone. ECHOCARDIOGRAM 05/23/2018 normal LV systolic fxn; LVEF [...] in all fie (more content not included)... [facility] 12-31-2023 History of Present illness Narrative [...] tenderness. SKIN: No jaundice. LABS: Latest Ref Rng 12/24/2023 WBC 3.70 - 11.00 k/uL 4.98 [...] Lymph 1.00 - 4.00 k/uL 0.79 (L) [place]% % 7.6 Abs [place] <0.87 k/uL 0.38 Eosin% % 4.6 Abs [...] Microglobulin <3.1 mg/L 4.0 (H) Latest Ref [facility] 12/24/2023 Albumin 3.43 - 5.41 g/dL 4.26 [...] identified. M protein is present. ! Interpretation ([facility]) Atypical restricted bands are present in the IgG and kappa regions. Consistent with IgG kappa monoclonal gammopathy. Staff Review ([facility]) Reviewed by Dr. Mickie Mclaughlin MD [place] Free, Serum 3.3 - 19.4 mg/L 30.9 [...] Reviewed by Dr. Mickie Mclaughlin MD Result ([facility]) No M protein is identified. M protein is present. ! Interpretation ([facility]) Atypical restricted bands are present in the IgG and kappa regions. Consistent with IgG kappa monoclonal gammopathy. Staff Review ([facility]) Reviewed by Dr. Mickie Mclaughlin MD Protein, Urine Random 0 - 20 mg/dL 10 Latest Ref Rng 06/22/2023 Albumin %, 24 Hr Urine % [...] Quant, 24 Hr Urine -- Staff Review ([facility]) Reviewed by Denia Kramer MD Interpretation Comment for Protein Electrophoresis See separate immunofixation report for characterization of monoclonal gammopathy. Result ([facility]) No M protein is identified. M protein is present. ! Interpretation ([facility]) Atypical restricted bands are present in the IgG and kappa regions. Consistent with IgG kappa monoclonal gammopathy. Staff Review ([facility]) Reviewed by Denia Kramer MD Protein, Timed [...] which included preparing to see the patient, [id number] patient care, completing clinical documentation, obtaining and/or reviewing separately obtained history, performing a medically appropriate examination, counseling and educating the patient/family/caregiver, ordering medications, tests, or procedures, communicating with other HCPs (not separately reported), and communicating results to the patient/family/caregiver. Gary Kelly DO documented in this encounter [facility] 12-06-2023 Telephone encounter Note The following approved medication requests have been transmitted electronically. Requested Prescriptions Signed Prescriptions Disp Refills cetirizine (ZYRTEC) 10 mg tablet 90 tablet 3 Sig: Take 1 tablet by mouth once daily. Authorizing Provider: ELIZABETH AVILA APRN.HOSPITAL FELLOW [facility] 12-06-2023 Miscellaneous Notes The following approved medication requests have been transmitted electronically. Requested Prescriptions Signed Prescriptions Disp Refills cetirizine (ZYRTEC) 10 mg tablet 90 tablet 3 Sig: Take 1 tablet by mouth once daily. Authorizing Provider: ELIZABETH AVILA APRN.HOSPITAL FELLOW documented in this encounter [facility] 11-23-2023 Telephone encounter Note See message and advise. Kinza Wasserman MA [facility] 11-23-2023 Miscellaneous Notes See message and advise. Kinza Wasserman MA documented in this encounter [facility] 11-23-2023 History of Present illness Narrative Chief Complaint Patient presents with: Follow Up: 6 month HPI Renetta Pink is a 82 year old male [...] 585.3, ICD10: N18.32 - Continue following with team supervisor. - COMPREHENSIVE METABOLIC PANEL - COMPLETE BLOOD [...] needed. This note was partly generated using Your Image by [employer]oke voice recognition dictation and may contain some misspelled or inaccurate words missed on review. documented in this encounter [facility] 11-23-2023 Note HNO ID: [id number] Author: RAFAEL RAMIREZ APRN.CNP Service: ? Author Type: Nurse Practitioner Type: Progress Notes Filed: 11/23/2023 13:48 Note Text: Chief Complaint Patient presents with: Follow Up: 6 month HPI Renetta Pink is a 82 year old male [...] 585.3, ICD10: N18.32 - Continue following with team supervisor. - COMPREHENSIVE METABOLIC PANEL - COMPLETE BLOOD [...] K21.9 - Stable on protonix Rafael Ramirez APRN.HOSPITAL FELLOW RTO in 6 months, sooner if needed. This note was partly generated using Your Image by Brooke voice recognition dictation and may contain some misspelled or inaccurate words missed on review. [facility] 11-23-2023 Evaluation note Diagnosis Type 2 diabetes 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, without long-term current use of insulin, unspecified whether stage 3a or 3b CKD (HCC)- Primary Stage 3b chronic kidney disease (HCC) Hyperlipidemia, unspecified hyperlipidemia type Essential hypertension, benign Gastroesophageal reflux disease without esophagitis Esophageal reflux documented in this encounter [facility]03-22-2024 History of Present illness Narrative* Ginger Khan - 06/29/2023 1:30 PM EDT Renetta Pink 1940 06/29/2023 HPI: The patient is [...] or bladder habits. No bleeding. Follows with team supervisor. Appetite is good, energy level is stable. [...] in 6 months with labs Ginger Khan APRN.HOSPITAL FELLOW I spent a total of 30 minutes on the date of the service which included preparing to see the patient, [id number] patient care, completing clinical documentation, counseling and [...] evaluation of this patient. documented in this encounterUniversity [facility]03-22-2024 NoteHNO ID: [id number] Author: GINGER KHAN, ? Service: ? Author Type: Nurse Practitioner Type: Progress Notes Filed: 06/29/2023 14:25 Note Text: Renetta Pink 1940 06/29/2023 HPI: The patient is [...] or bladder habits. No bleeding. Follows with team supervisor. Appetite is good, energy level is stable. [...] dm Diabetes Brother o (more content not included)...[facility]03-04-2024 History of Present illness Narrative* Ángel Julio, - 06/11/2023 10:40 AM EST [facility] SERVICE DATE: [...] Complication, Without Long-Term Current Use of Insulin ([facility]) Internal Hemorrhoids Without Mention of Complication Hyperlipidemia, [...] then 88 when rescanned Normal renal function 2013 AUDI 08/20/2012. Renal [...] prn SIGNATURE: Ángel Julio DO PATIENT NAME: Reentta Pink DATE: June 11, 2023 TIME: 9:45 AM OFFICE NUMBER: [id number] CC: PRIMARY CARE PHYSICIAN: Jenae Savage MD documented in this encounterUniversity [facility]03-04-2024 NoteHNO ID: [id number] Author: ÁNGEL JULIO DO Service: ? 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 Syncope and Collapse Syncope Ckd (Chronic Kidney Disease) Stage 3, Gfr 30-59 Ml/Min ([facility]) Type 2 Diabetes Mellitus With Stage 3 Chronic Kidney Disease, Without Long-Term Current Use of Insulin, Unspecified Whether Stage 3a Or 3b Ckd ([facility]) MEDICATIONS: amLODIPine (NORVASC) 5 mg tablet Take [...] Clear UGLUC Negative Ne (more content not included)...[facility] 05-25-2023 History of Present illness Narrative* Rafael Ramirez APRN.HOSPITAL FELLOW - 05/25/2023 1:00 PM EST Chief Complaint Patient presents with: F/U 6 Month HPI Renetta Pink is a 82 year old male [...] needed. This note was partly generated using Your Image by Brooke voice recognition dictation and may contain some misspelled or inaccurate words missed on review. documented in this encounterUniversity [facility]02-16-2024 NoteHNO ID: [id number] Author: RAFAEL RAMIREZ APRN.CNP Service: ? Author Type: Nurse Practitioner Type: Progress Notes Filed: 05/25/2023 13:23 Note Text: Chief Complaint Patient presents with: F/U 6 Month HPI Renetta Pink is a 82 year old male [...] exercise - COMP METABOLIC PANEL Rafael Ramirez APRN.HOSPITAL FELLOW RTO in 6 months, sooner if needed. This note was partly generated using [employer] ([employer] voice recognition dictation and may contain some misspelled or inaccurate words missed on review.[facility]02-16-2024 Evaluation note* Diagnosis Type 2 diabetes 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, without long-term current use of insulin, unspecified whether stage 3a or 3b CKD (HCC)- Primary Stage 3b chronic kidney disease (HCC) Hyperlipidemia, unspecified hyperlipidemia type Essential hypertension, benign Gastroesophageal reflux disease without esophagitis Esophageal reflux documented in this encounter [facility]02-14-2024 Evaluation note* Diagnosis Stage 3 chronic kidney disease, unspecified whether stage 3a or 3b CKD (HCC)- Primary documented in this encounter [facility]11-09-2023 NoteHNO ID: [id number] Author: Janusz Davenport MD Service: ? Author Type: Physician Type: Progress Notes Filed: 04/11/2023 9:00 PM Note Text: [facility] UROLOGY ESTABLISHED PATIENT CLINIC NOTE UROL [facility] PATIENT INFO: Renetta Pink 82 year old PCP: Jenae Savage [...] ICD10: Z13.89 REASON FOR VISIT: Follow-up HPI: Renetta Pink returns for continuing evaluation and management. [...] the difference in technique and patient positioning. Program [facility] Transcribe Date/Time: Jan 14 2023 4:00P Dictated by : CUBA JADE MD This examination was interpreted and the report reviewed and electronically signed by: CUBA JADE MD on Jan 14 2023 4:03PM EST Results-Findings * * *Final Report* * * DATE OF EXAM: Jan 11 2023 2:14PM [facility] 1055 - US KIDNEY/BLADDER / PROCEDURE REASON: [...] 8.9 x 10.5 c (more content not included)...[facility]10-05-2023 History of Present illness Narrative* Ana Lilia Guaman RDMS - 01/11/2023 1:45 PM EDT Radiology Service Progress Note PATIENT NAME: Renetta Pink DATE OF SERVICE: January 11, 2023 [...] 11, 2023 3:54 PM documented in this encounterUniversity [facility]08-29-2023 History of Present illness Narrative* Gary Kelly DO - 12/05/2022 11:41 AM EDT HPI: [...] Lymph 1.00 - 4.00 k/uL 0.94 (L) [place]% % 9.0 Abs [place] <0.87 k/uL 0.55 Eosin% % 4.8 Abs [...] which included preparing to see the patient, [id number] patient care, completing clinical documentation, obtaining and/or reviewing separately obtained history, performing a medically appropriate examination, counseling and educating the pat ient/family/caregiver, ordering medications, tests, or procedures, communicating with other HCPs (not separately reported), and communicating results to the patient/family/caregiver. Gary Kelly DO documented in this encounterUniversity Hospitals [facility] Center08-18-2023 History of Present illness Narrative* Rafael Ramirez APRN.HOSPITAL FELLOW - 11/24/2022 2:00 PM EDT Chief Complaint Patient presents with: F/U 6 Month HPI Renetta Pink is a 81 year old male [...] Negative Ketones, Urine Trace, Negative Negative Specific [place], Ur 1.005 - 1.030 1.017 Hemoglobin/Blood,Ur Negative, [...] - TADALAFIL 20 MG TABLET Rafael Ramirez APRN.CNP RTO in 6 months, sooner if needed. This note was partly generated using Your Image by Brooke voice recognition dictation and may contain some misspelled or inaccurate words missed on review. documented in this encounterUniversity [facility]06-13-2023 Miscellaneous Notes* Telephone Encounter - Rissa White LPN - 09/19/2022 10:58 AM EDT Patient Suzanne returned call and went over results, notes from Elizabeth Avila [employer] with understanding with present also. said no [...] you. Elizabeth Avila APRN.CNP documented in this encounterUniversity Hospitals [facility] Center06-12-2023 History of Present illness Narrative* Mercy Phelps, RT(R) - 09/18/2022 1:20 PM EDT Radiology Service Progress Note PATIENT NAME: Renetta Pink DATE OF SERVICE: September 18, 2022 [...] 18, 2022 1:12 PM documented in this encounterUniversity Hospitals [facility] Center06-01-2023 Instructions* Patient Instructions* Nataly Schmitt - 09/07/2022 9:55 AM EDT Start taking zyrtec daily Increase flonase to two times daily for 10 days Return with worsening symptoms documented in this encounterUniversity Hospitals [facility] Center06-01-2023 History of Present illness Narrative* Elizabeth Avila APRN.MAGALY - 09/07/2022 9:40 AM EDT This is a 81 year old male who presents today with: Patient presents with: Acute Visit: ?cold or sinus sx HISTORY OF PRESENT ILLNESS: Renetta Pink is a 81 year old male. [...] discussed and patient voices understanding. Elizabeth Avila APRN.MAGALY This note was partially generated using Your Image by Brooke voice recognition system. Note was reviewed for accuracy. There may be minor misspellings or grammar miscues with Your Image by Brooke voice recognition. documented in this encounterUniversity Hospitals [facility] Center05-30-2023 Miscellaneous Notes* Telephone Encounter - Nel Stokes Ma - 09/05/2022 8:40 AM EDT Pt scheduled with elizabeth Avila on 09/07/22 at 9:40 AM. Pt notified via [employer]. Nel Stokes Ma documented in this encounterUniversity Hospitals Cleveland [facility] Center02-17-2023 History of Present illness Narrative* Rafael Ramirez APRN.CNP - 05/26/2022 1:40 PM EST Chief Complaint Patient presents with: F/U 6 Month HPI Renetta Pink is a 81 year old male [...] <130/80 - COMP METABOLIC PANEL Rafael Ramirez APRN.MAGALY RTO in 6 months, sooner if needed. This note was partly generated using [employer] Media Broadcasts (SMB) Limited[employer] voice recognition dictation and may contain some misspelled or inaccurate words missed on review. documented in this encounterUniversity Hospitals [facility] Center01-27-2023 History of Present illness Narrative* Ángel Julio DO - 05/05/2022 10:40 AM EST [facility] SERVICE DATE: [...] Complication, Without Long-Term Current Use of Insulin ([facility]) Internal Hemorrhoids Without Mention of Complication Hyperlipidemia, Unspecified Urinary Retention With Incomplete Bladder Emptying Nonorganic Enuresis Renal Insufficiency Bph With Obstruction/Lower Urinary Tract Symptoms Renal Calcification Renal Cyst 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 documented in this encounterUniversity Hospitals Cleveland Medical Center11-30-2022 History of Present illness Narrative* Doyle Rankin [...] IgM 40 - 230 mg/dL 17 (L) [place] Free, Serum 3.3 - 19.4 mg/L 27.1 [...] ratio is normal. The patient lives in [place]. He will be scheduled to see Dr. Gary Kelly in [place] in 9 months. I put in for lab work to be done prior to that. Doyle Rankin MD documented in this encounterUniversity Hospitals Cleveland Medical Center10-05-2022 History of Present illness Narrative* Janusz Davenport MD - 01/11/2022 11:37 AM EDT Images from the original note were not included. [facility] UROLOGY ESTABLISHED PATIENT CLINIC NOTE UROLOGY PATIENT INFO: Renetta Pink 81 year old PCP: Jenae Savage [...] (HCC) - ICD9: 585.3, ICD10: N18.32 HPI: Renetta Pink returns for continuing evaluation and management. [...] Enlarged prostate 3. Moderate post void residual Program Clerk: [facility]Arabella Transcribe Date/Time: Jan 03 2022 11:44A Dictated by : RASHEEDA ZACARIAS MD This examination was interpreted and the report reviewed and electronically signed by: RASHEEDA ZACARIAS MD on Jan 03 2022 11:48AM EST Results-Findings * * *Final Report* * * DATE OF EXAM: Jan 02 2022 1:46PM [facility] 1055 - US KIDNEY/BLADDER / PROCEDURE REASON: [...] year. Janusz Davenport M.D, MS Associate Staff [facility] [place] [facility] documented in this encounterUniversity Hospitals Cleveland Medical Center10-05-2022 Nurse Note* Dolly Blanco MA - 01/11/2022 11:37 AM EDT PVR = 0 ml documented in this encounterUniversity Hospitals Cleveland Medical Center08-16-2022 Instructions* Patient Instructions* Rafael Ramirez APRN.CNP - 11/22/2021 1:28 PM EDT Apply Kenalog cream to right foot Call Cardiology with recommendations for bilateral foot swelling with Amlodipine Stop Eliquis when you run out Get blood work at end of February for Dr Rankin. See us back in 6 months with labs prior. Rafael Ramirez APRN.HOSPITAL FELLOW documented in this encounterUniversity Hospitals Cleveland Medical Center08-16-2022 History of Present illness Narrative* Rafael Ramirez APRN.CNP - 11/22/2021 1:00 PM EDT Chief Complaint Patient presents with: F/U 6 months HPI Renetta Pink is a 80 year old male who presents here today for Chronic Medical Conditions.. PE: History of PE after long drive. Finishing Eliquis next week and then will be finished. Diabetes: Well controlled. Not on any medications. Hgb A1c 6.5%. Follows with [place] [facility]. Had a recent appointment. Doing well [...] with some improvement. Does have some poison rashida looking dermatitis on right inner arm. Has [...] Negative Negative Ketones, Urine Negative Negative Specific [place], Ur 1.005 - 1.030 1.010 Hemoglobin/Blood,Ur Negative [...] monoclonal gammopathy. Staff Review (MPA) Reviewed by Mary Cox MD [place] Free, Serum 3.3 - 19.4 mg/L 22.9 [...] ICD10: L30.9 - Unknown etiology, possible poison rashida. - TRIAMCINOLONE ACETONIDE 0.1 % TOPICAL CREAM 7. Bilateral leg edema - ICD9: 782.3, ICD10: R60.0 - Secondary to amlodipine increase, patient will reach out to cardiology Rafael Ramirez APRN.MAGALY RTO in 6 months, sooner if needed. This note was partly generated using Your Image by Brooke voice recognition dictation and may contain some misspelled or inaccurate words missed on review. documented in this encounterUniversity Hospitals Cleveland Medical Center06-03-2022 Miscellaneous Notes* Telephone Encounter - Maryellen Terry [...] REPLY TO THIS MESSAGE. documented in this encounterUniversity Hospitals Cleveland Medical Center06-01-2022 Miscellaneous Notes* Telephone Encounter - Kinza Wasserman [...] 09/07/2021 10:36 AM EDT See message below. [facility] ER report on PCP desk to review. Kinza Wasserman Ma * Telephone Encounter - Rissa White LPN - 09/07/2021 9:21 AM EDT Patient Suzanne calling yesterday was in [facility] ER for diarrhea, vomiting. He was [...] needs diagnosis. Please advise documented in this encounterUniversity Hospitals Cleveland Medical Center05-04-2022 History of Present illness Narrative* Janusz Davenport MD - 08/10/2021 1:00 PM EDT Images from the original note were not included. [facility] UROLOGY PATIENT CLINIC NOTE PATIENT: Renetta Pink (80 year old) PCP: Jenae Savage MD REFERRING PROVIDER: Ángel Julio DO (nephrology) MEGHAN FOR CONSULTATION: BPH HISTORY OF PRESENT ILLNESS: 80 year old year old male with BPH, s/p TURP in 2012, ED, CKD stage IIIb, DM 2, hyperlipidemia, [...] 10.5 cmcyst which increased to 11.9 x 202 study. In 2013 the right kidney had a 8 cm cyst that increased to 9.8 cm x 202. URINARY: DAYTIME FREQUENCY: Every 4 hours NIGHTTIME [...] the bladder lumen which demonstrates wall trabeculation. Program Clerk: MANOJ Transcribe Date/Time: Jan 10 2021 3:19P Dictated by : RISSA LOPEZ MD This examination was interpreted and the report reviewed and electronically signed by: RISSA LOPEZ MD on Jan 10 2021 3:26PM EST Results-Findings * * *Final Report* * * DATE OF EXAM: Jan 10 2021 3:08PM [facility] 1055 - US KIDNEY/BLADDER / PROCEDURE REASON: [...] which included preparing to see the patient, [id number] patient care, completing clinical documentation, obtaining and/or reviewing separately obtained history, performing a medically appropriate examination, counseling and educating the p atient/family/caregiver and ordering medications, tests, or procedures. Janusz Davenport MD, MS Associate Staff [facility] [place] [facility] documented in this encounterUniversity Hospitals Cleveland Medical Center05-04-2022 Nurse Note* Ashlie Castillo RN - 08/10/2021 12:58 PM EDT PVR 103 ML documented in this encounterUniversity Hospitals Cleveland Medical Center05-04-2022 Miscellaneous Notes* Telephone Encounter - Ángel Julio DO - 08/10/2021 8:41 AM EDT Will refer to hematology for M protein. Unlikely causing renal function decline due to lack of proteinuria. documented in this encounterUniversity Hospitals Cleveland Medical Center05-02-2022 Instructions* Patient Instructions* Ángel Julio DO - [...] will be greatly appreciated. documented in this encounterUniversity Hospitals Cleveland Medical Center05-02-2022 History of Present illness Narrative* Ángel Julio DO - 08/08/2021 11:00 AM EDT [facility] NE[facility]ERTENSION [facility] SERVICE DATE: 08/08/2021 SERVICE TIME: 11:31 AM REASON FOR CONSULT: I am asked to see this patient in consultation for my opinion regarding CKD IIIb. My recommendations will be communicated by way of shared medical record, fax, or mail. REQUESTING PHYSICIAN: Rafael Ramirez APRN.HOSPITAL FELLOW PRIMARY CARE PHYSICIAN: Jenae Savage MD CHIEF [...] AUDI. Renal function steadily declining since 2019 ACR negative US kidney/bladder with increased renal echogenicity and a nodular enlarged prostate gland that invaginates into the bladder lumen which demonstrates wall trabeculation Last urology appointment in 01/05/2021 - PVR 158 and then 89 when rescanned Well controlled diabetes since 2014 Hypertension regimen: - Norvasc 5 mg daily [...] months SIGNATURE: Ángel Julio DO PATIENT NAME: Renetta Pink DATE: August 08, 2021 TIME: 11:31 AM OFFICE NUMBER: [phone] CC: REFERRING PROVIDER: Rafael Ramirez APRN.[facility] PRIMARY CARE PHYSICIAN: Jenae Savage MD [facility]* Diagnosis Stage 3b chronic kidney disease (HCC)- Primary Renal cyst Unspecified congenital cystic kidney disease Anemia of renal disease 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) Secondary hyperparathyroidism (of renal origin) Essential hypertension Unspecified essential hypertension Hyperlipidemia, unspecified hyperlipidemia type [facility]* Diagnosis Screening for genitourinary condition- Primary Screening for other and unspecified genitourinary condition Monoclonal (M) protein disease, multiple 'M' protein- Primary Monoclonal paraproteinemia documented [facility]* Diagnosis Benign prostatic hyperplasia without lower urinary tract symptoms- Primary Screening for genitourinary condition Screening for other and unspecified genitourinary condition 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 note* Diagnosis Diarrhea, unspecified type- Primary [facility]* Diagnosis Type 2 diabetes mellitus without complication, without long-term current use of insulin (HCC)- Primary Hyperlipidemia, unspecified hyperlipidemia type Stage 3b chronic kidney disease (HCC) Essential hypertension, benign Acute pulmonary embolism, unspecified pulmonary embolism type, unspecified whether acute cor pulmonale present (HCC) Dermatitis Contact dermatitis and other eczema, due to unspecified cause Bilateral leg edema Edema [facility] Diagnosis Benign prostatic hyperplasia without lower urinary tract symptoms- Primary Screening for genitourinary condition Screening for other and unspecified genitourinary condition 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 Stage 3b chronic kidney disease (HCC) [facility]* Diagnosis MGUS (monoclonal gammopathy of unknown significance)- Primary Monoclonal paraproteinemia [facility]* Diagnosis Stage 3b chronic kidney disease (HCC)- Primary [facility]* Diagnosis Stage 3b chronic kidney disease (HCC)- Primary Anemia of renal disease 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) Secondary hyperparathyroidism (of renal origin) Primary hypertension Unspecified essential hypertension Hyperlipidemia, unspecified hyperlipidemia type Benign prostatic hyperplasia without lower urinary tract symptoms MGUS (monoclonal gammopathy of unknown significance) Monoclonal paraproteinemia [facility]* Diagnosis Stage 3b chronic kidney disease (HCC)- Primary Type 2 diabetes mellitus without complication, without long-term current use of insulin (HCC) Hyperlipidemia, unspecified hyperlipidemia type Essential hypertension, benign [facility]* Diagnosis Seasonal allergies- Primary Allergic rhinitis, cause unspecified [facility]* Diagnosis Type 2 diabetes mellitus without complication, without long-term current use of insulin (HCC)- Primary Stage 3b chronic kidney disease (HCC) Hyperlipidemia, unspecified hyperlipidemia type Essential hypertension, benign ED (erectile dysfunction) of organic origin Impotence of organic origin [facility]* Diagnosis MGUS (monoclonal gammopathy of unknown significance)- Primary Monoclonal paraproteinemia [facility]* Diagnosis 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 [facility]* Diagnosis Stage 3b chronic kidney disease (HCC)- Primary Anemia of renal disease 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) Secondary hyperparathyroidism (of renal origin) Primary hypertension Unspecified essential hypertension Hyperlipidemia, unspecified hyperlipidemia type Benign prostatic hyperplasia without lower urinary tract symptoms [facility]* Diagnosis MGUS (monoclonal gammopathy of unknown significance)- Primary Monoclonal paraproteinemia documented in this encounter [facility] note* Diagnosis MGUS (monoclonal gammopathy of unknown significance)- Primary Monoclonal paraproteinemia [facility]* Diagnosis Essential hypertension, benign documented in this encounter [facility] note* Diagnosis Acute cough documented in this encounter [facility] note* Diagnosis Monoclonal gammopathy- Primary Monoclonal paraproteinemia documented in this encounter [facility] note* Diagnosis Monoclonal gammopathy Monoclonal paraproteinemia documented in this encounter [facility] for referral (narrative)* Diagnostic Procedure Only (Routine) - Authorized Specialty Diagnoses / Procedures [facility] To Contact US IMAGING Diagnoses Congenital multiple renal cysts Procedures US KIDNEY/BLADDER US RETROPERITONEAL REAL TIME W/IMAGE COMPLETE Janusz Davenport MD [address] [place] [address] Us Imaging Referral ID Status Reason Start Date Expiration Date Visits Requested Visits Authorized [id number] Authorized Auto-Generat ed Referral 01/09/2022 09/09/2022 1 1 [facility] for referral (narrative)* Diagnostic Procedure Only (Routine) - Authorized Specialty Diagnoses / Procedures [facility] Referred To Contact US IMAGING Diagnoses Congenital multiple renal cysts Procedures US KIDNEY/BLADDER US RETROPERITONEAL REAL TIME W/IMAGE COMPLETE Janusz Davenport MD [address] [place] [address] Us Imaging Referral ID Status Reason Start Date Expiration Date Visits Requested Visits Authorized [id number] Authorized Auto-Generat ed Referral 01/11/2023 02/10/2023 1 1 [facility] for referral (narrative)* Diagnostic Procedure Only (Routine) - Closed Specialty Diagnoses / Procedures Referred By Contac t Referred To Contact US IMAGING Diagnoses Congenital multiple renal cysts Procedures US KIDNEY/BLADDER US RETROPERITONEAL REAL TIME W/IMAGE COMPLETE Janusz Davenport MD [address] [place] [address] Us Imaging [place] [address] Referral ID Status Reason Start Date Expiration Date V isits Requested Visits Authorized [id number] Closed Auto-Generate d Referral 01/11/2023 02/10/2023 1 1 [facility] Summary Purpose Family History No Family History Records FoundNo Family History Records FoundNo Family History Records FoundNo Family History Records FoundNo Family History Records Found Advance Directives No Advanced Directives Records FoundNo Advanced Directives Records FoundNo Advanced Directives Records FoundNo Advanced Directives Records FoundNo Advanced Directives Records Found Reason for Referral Specialty Diagnoses / Procedures Referred By Sakina t Referred To Contact Diagnoses Monoclonal (M) protein disease, multiple 'M' protein Procedures CONSULT TO HEMATOLOGY/ONCOLOGY OFFICE/OUTPATIENT [facility] 60-74 [place] [address] [place] [address] Referral ID Status Reason Start Date Expiration Date Visits Requested Visits Authorized [id number] Authorized PCP Requested Referral 08/10/2021 08/10/2022 1 1 Specialty Diagnoses / Procedures Referred By Sakina t Referred To Contact CT IMAGING Diagnoses Monoclonal gammopathy Procedures CT WHOLE BODY SKULL TO KNEE WO IVCON UNLISTED COMPUTED TOMOGRAPHY PROCEDURE CT HEART NO CONTRAST QUANT EVAL CORONRY CALCIUM Gary Kelly, DO [address] [facility] [place] [address] [facility] [place] [address] Referral ID Status Reason Start Date Expiration Date Visits Requested Visits Authorized [id number] Authorized Auto-Generat ed Referral 12/31/2023 01/29/2025 1 1 Referral ID Status Reason Start Date Expiration Date V isits Requested Visits Authorized [id number] Closed Auto-Generate d Referral 12/31/2023 01/29/2025 1 1 Additional Source Comments (unrecognized sect ion and content) No Status Records FoundNo Status Records FoundNo Status Records FoundNo Status Records FoundNo Status Records Found INFORMATION SOURCE (unrecogn ized section and content) DATE CREATED AUTHOR 10/02/2017 [facility] DATE CREATED AUTHOR AUTHOR'S ORGANIZ ATION 06/27/2018 [facility] DATE CREATED AUTHOR AUTHOR'S ORGANIZ ATION 06/27/2018 [facility] DATE CREATED AUTHOR AUTHOR'S ORGANIZ ATION 01/15/2024 [facility] nter DATE CREATED AUTHOR AUTHOR'S ORGANIZ ATION 01/15/2024 [facility] Source Comments (unrecognize d section and content) In the event this informatio n is protected by the Federal Confidentiality of Alcohol and Drug Abuse Patient Records regulations: The Federal rules restrict any use of the information to criminally investigate or prosecute any alcohol or drug abuse patient.[facility] CenterIn the event this information is protected by the Federal Confidentiality of Alcohol and Drug Abuse Patient Records regulations: The Federal rules restrict any use of the information to criminally investigate or prosecute any alcohol or drug abuse patient.[facility] CenterIn the event this information is protected by the Federal Confidentiality of Alcohol and Drug Abuse Patient Records regulations: The Federal rules restrict any use of the information to criminally investigate or prosecute any alcohol or drug abuse patient.[facility] CenterIn the event this information is protected by the Federal Confidentiality of Alcohol and Drug Abuse Patient Records regulations: The Federal rules restrict any use of the information to criminally investigate or prosecute any alcohol or drug abuse patient.[facility] CenterIn the event this information is protected by the Federal Confidentiality of Alcohol and Drug Abuse Patient Records regulations: The Federal rules restrict any use of the information to criminally investigate or prosecute any alcohol or drug abuse patient.[facility] CenterIn the event this information is protected by the Federal Confidentiality of Alcohol and Drug Abuse Patient Records regulations: The Federal rules restrict any use of the information to criminally investigate or prosecute any alcohol or drug abuse patient.[facility] CenterIn the event this information is protected by the Federal Confidentiality of Alcohol and Drug Abuse Patient Records regulations: The Federal rules restrict any use of the information to criminally investigate or prosecute any alcohol or drug abuse patient.[facility] CenterIn the event this information is protected by the Federal Confidentiality of Alcohol and Drug Abuse Patient Records regulations: The Federal rules restrict any use of the information to criminally investigate or prosecute any alcohol or drug abuse patient.[facility] CenterIn the event this information is protected by the Federal Confidentiality of Alcohol and Drug Abuse Patient Records regulations: The Federal rules restrict any use of the information to criminally investigate or prosecute any alcohol or drug abuse patient.[facility] CenterIn the event this information is protected by the Federal Confidentiality of Alcohol and Drug Abuse Patient Records regulations: The Federal rules restrict any use of the information to criminally investigate or prosecute any alcohol or drug abuse patient.[facility] CenterIn the event this information is protected by the Federal Confidentiality of Alcohol and Drug Abuse Patient Records regulations: The Federal rules restrict any use of the information to criminally investigate or prosecute any alcohol or drug abuse patient.[facility] CenterIn the event this information is protected by the Federal Confidentiality of Alcohol and Drug Abuse Patient Records regulations: The Federal rules restrict any use of the information to criminally investigate or prosecute any alcohol or drug abuse patient.[facility] CenterIn the event this information is protected by the Federal Confidentiality of Alcohol and Drug Abuse Patient Records regulations: The Federal rules restrict any use of the information to criminally investigate or prosecute any alcohol or drug abuse patient.[facility] CenterIn the event this information is protected by the Federal Confidentiality of Alcohol and Drug Abuse Patient Records regulations: The Federal rules restrict any use of the information to criminally investigate or prosecute any alcohol or drug abuse patient.[facility] CenterIn the event this information is protected by the Federal Confidentiality of Alcohol and Drug Abuse Patient Records regulations: The Federal rules restrict any use of the information to criminally investigate or prosecute any alcohol or drug abuse patient.[facility] CenterIn the event this information is protected by the Federal Confidentiality of Alcohol and Drug Abuse Patient Records regulations: The Federal rules restrict any use of the information to criminally investigate or prosecute any alcohol or drug abuse patient.[facility] CenterIn the event this information is protected by the Federal Confidentiality of Alcohol and Drug Abuse Patient Records regulations: The Federal rules restrict any use of the information to criminally investigate or prosecute any alcohol or drug abuse patient.[facility] CenterIn the event this information is protected by the Federal Confidentiality of Alcohol and Drug Abuse Patient Records regulations: The Federal rules restrict any use of the information to criminally investigate or prosecute any alcohol or drug abuse patient.[facility] CenterIn the event this information is protected by the Federal Confidentiality of Alcohol and Drug Abuse Patient Records regulations: The Federal rules restrict any use of the information to criminally investigate or prosecute any alcohol or drug abuse patient.[facility] the event this information is protected by the Federal Confidentiality of Alcohol and Drug Abuse Patient Records regulations: The Federal rules restrict any use of the information to criminally investigate or prosecute any alcohol or drug abuse patient.[facility] CenterIn the event this information is protected by the Federal Confidentiality of Alcohol and Drug Abuse Patient Records regulations: The Federal rules restrict any use of the information to criminally investigate or prosecute any alcohol or drug abuse patient.[facility] CenterIn the event this information is protected by the Federal Confidentiality of Alcohol and Drug Abuse Patient Records regulations: The Federal rules restrict any use of the information to criminally investigate or prosecute any alcohol or drug abuse patient.[facility] CenterIn the event this information is protected by the Federal Confidentiality of Alcohol and Drug Abuse Patient Records regulations: The Federal rules restrict any use of the information to criminally investigate or prosecute any alcohol or drug abuse patient.[facility] CenterIn the event this information is protected by the Federal Confidentiality of Alcohol and Drug Abuse Patient Records regulations: The Federal rules restrict any use of the information to criminally investigate or prosecute any alcohol or drug abuse patient.[facility] CenterIn the event this information is protected by the Federal Confidentiality of Alcohol and Drug Abuse Patient Records regulations: The Federal rules restrict any use of the information to criminally investigate or prosecute any alcohol or drug abuse patient.[facility] CenterIn the event this information is protected by the Federal Confidentiality of Alcohol and Drug Abuse Patient Records regulations: The Federal rules restrict any use of the information to criminally investigate or prosecute any alcohol or drug abuse patient.[facility] Center[facility] the event this information is protected by the Federal Confidentiality of Alcohol and Drug Abuse Patient Records regulations: The Federal rules restrict any use of the information to criminally investigate or prosecute any alcohol or drug abuse patient.[facility] CenterIn the event this information is protected by the Federal Confidentiality of Alcohol and Drug Abuse Patient Records regulations: The Federal rules restrict any use of the information to criminally investigate or prosecute any alcohol or drug abuse patient.[facility] Center[facility] the event this information is protected by the Federal Confidentiality of Alcohol and Drug Abuse Patient Records regulations: The Federal rules restrict any use of the information to criminally investigate or prosecute any alcohol or drug abuse patient.[facility] CenterIn the event this information is protected by the Federal Confidentiality of Alcohol and Drug Abuse Patient Records regulations: The Federal rules restrict any use of the information to criminally investigate or prosecute any alcohol or drug abuse patient.[facility] CenterIn the event this information is protected by the Federal Confidentiality of Alcohol and Drug Abuse Patient Records regulations: The Federal rules restrict any use of the information to criminally investigate or prosecute any alcohol or drug abuse patient.[facility] CenterIn the event this information is protected by the Federal Confidentiality of Alcohol and Drug Abuse Patient Records regulations: The Federal rules restrict any use of the information to criminally investigate or prosecute any alcohol or drug abuse patient.[facility] CenterIn the event this information is protected by the Federal Confidentiality of Alcohol and Drug Abuse Patient Records regulations: The Federal rules restrict any use of the information to criminally investigate or prosecute any alcohol or drug abuse patient.[facility] Reason for Visit (unrecogniz ed section and content) Specialty Diagnoses / Procedures Referred By Sakina freed Referred To Contact Nephrology Diagnoses Stage 3b chronic kidney disease (HCC) Renal cyst Procedures CONSULT TO NEPHROLOGY OFFICE/OUTPATIENT NEW HIGH MDM 60-74 MINUTES Rafael Ramirez APRN.HOSPITAL FELLOW [address] [place] [address] Referral ID Status Reason Start Date Expiration Date V isits Requested Visits Authorized [id number] Closed PCP Requested Referral 05/27/2021 05/27/2022 1 [...] TIME W/IMAGE COMPLETE Janusz Davenport MD [address] [place] [address] [place] [address] Referral ID Status Reason Start Date Expiration Date V isits Requested Visits Authorized [id number] Closed Auto-Generate d Referral 01/11/2023 02/10/2023 1 [...] CONTRAST QUANT EVAL CORONRY CALCIUM Gary Kelly, [address] [place] [address] [place] [address] Referral ID Status Reason Start Date Expiration Date V isits Requested Visits Authorized [id number] Closed Auto-Generate d Referral 12/31/2023 01/29/2025 1 1 Reason Comments Results Care Teams (unrecognized sec tion and content) Farm Products Shipper Relationship Specialty Start Date End Date Jenae Savage MD [address] [place] [address] PCP - General Family Practice 12/04/16 Ralph Garcia [address] [facility] [id number] Specialty Repeat Photocomposing Machine Operator Cardiology 06/25/18 Juan Manuel Alvarado MD [address] [place] [address] Specialty Repeat Photocomposing Machine Operator Cardiology 06/26/18 Farm Products Shipper Relationship Specialty Start Date End Date Jenae Savage MD [address] [facility] [address] PCP - General Family Practice 12/04/16 Radha, Ralph S [address] [place] [address] Specialty Repeat Photocomposing Machine Operator Cardiology 06/25/18 Juan Manuel Alvarado MD [address] [place] [address] Specialty Repeat Photocomposing Machine Operator Cardiology 06/26/18 Farm Products Shipper Relationship Specialty Start Date End Date Jenae Savage MD [address] [place] [address] PCP - General Family Practice 12/04/16 Radha, Ralph S [address] [place] [address] Specialty Repeat Photocomposing Machine Operator Cardiology 06/25/18 Juan Manuel Alvarado MD [address] [place] [address] Specialty Repeat Photocomposing Machine Operator Cardiology 06/26/18 Farm Products Shipper Relationship Specialty Start Date End Date Jenae Savage MD [address] [facility] [address] PCP - General Family Practice 12/04/16 Radha, [place] S [address] [place] [address] Specialty Repeat Photocomposing Machine Operator Cardiology 06/25/18 Juan Manuel Alvarado MD [address] [place] [address] Specialty Repeat Photocomposing Machine Operator Cardiology 06/26/18 Farm Products Shipper Relationship Specialty Start Date End Date Jenae Savage MD [address] [place] [address] PCP - General Family Practice 12/04/16 Radha, Ralph S [address] [place] [address] Specialty Repeat Photocomposing Machine Operator Cardiology 06/25/18 Juan Manuel Alvarado MD [address] [place] [address] Specialty Repeat Photocomposing Machine Operator Cardiology 06/26/18 Farm Products Shipper Relationship Specialty Start Date End Date Jenae Savage MD [address] [place] [address] PCP - General Family Practice 12/04/16 [facility], [place] S [address] [place] [address] Specialty Repeat Photocomposing Machine Operator Cardiology 06/25/18 Juan Manuel Alvarado MD [address] [place] [address] Specialty Repeat Photocomposing Machine Operator Cardiology 06/26/18 Farm Products Shipper Relationship Specialty Start Date End Date Jenae Savage MD [address] [place] [address] PCP - General Family Practice 12/04/16 [facility], Ralph S [address] [place] [address] Specialty Repeat Photocomposing Machine Operator Cardiology 06/25/18 Juan Manuel Alvarado MD [address] [place] [address] Specialty Repeat Photocomposing Machine Operator Cardiology 06/26/18 Farm Products Shipper Relationship Specialty Start Date End Date Jenae Savage MD [address] [place] [address] PCP - General Family Medicine 12/04/16 Radha, Ralph S [address] [place] [address] Specialty Repeat Photocomposing Machine Operator Cardiology 06/25/18 Juan Manuel Alvarado MD [address] [place] [address] Specialty Repeat Photocomposing Machine Operator Cardiology 06/26/18 Farm Products Shipper Relationship Specialty Start Date End Date Jenae Savage MD [address] [place] [address] PCP - General Family Medicine 12/04/16 Radha, Ralph S [address] [place] [address] Specialty Repeat Photocomposing Machine Operator Cardiology 06/25/18 Juan Manuel Alvarado MD [address] [place] [address] Specialty Repeat Photocomposing Machine Operator Cardiology 06/26/18 Farm Products Shipper Relationship Specialty Start Date End Date Jenae [place] MD [address] [place] [address] PCP - General Family Medicine 12/04/16 Radha, [place] S [address] [place] [address] Specialty Repeat Photocomposing Machine Operator Cardiology 06/25/18 Juan Manuel Alvarado MD [address] [place] [address] Specialty Repeat Photocomposing Machine Operator Cardiology 06/26/18 Farm Products Shipper Relationship Specialty Start Date End Date Jenae [place] MD [address] [place] [address] PCP - General Family Medicine 12/04/16 Radha, [place] S [address] [place] [address] Specialty Repeat Photocomposing Machine Operator Cardiology 06/25/18 Juan Manuel Alvarado MD [address] [place] [address] Specialty Repeat Photocomposing Machine Operator Cardiology 06/26/18 Farm Products Shipper Relationship Specialty Start Date End Date Jenae [place] MD [address] [facility] [place] [address] PCP - General Family Medicine 12/04/16 Radha, Ralph S [address] [place] [address] Specialty Repeat Photocomposing Machine Operator Cardiology 06/25/18 Juan Manuel Alvarado MD [address] [place] [address] Specialty Repeat Photocomposing Machine Operator Cardiology 06/26/18 Farm Products Shipper Relationship Specialty Start Date End Date Jenae Savage MD [address] [place] [address] PCP - General Family Medicine 12/04/16 Radha, Ralph S [address] [place] [address] Specialty Repeat Photocomposing Machine Operator Cardiology 06/25/18 Juan Manuel Alvarado MD [address] [place] [address] Specialty Repeat Photocomposing Machine Operator Cardiology 06/26/18 Farm Products Shipper Relationship Specialty Start Date End Date Jenae [place] MD [address] [place] [address] PCP - General Family Medicine 12/04/16 Radha, [place] S [address] [place] [address] Specialty Repeat Photocomposing Machine Operator Cardiology 06/25/18 Juan Manuel Alvarado MD [address] [place] [address] Specialty Repeat Photocomposing Machine Operator Cardiology 06/26/18 Farm Products Shipper Relationship Specialty Start Date End Date Jenae [place] MD [address] [place] [address] PCP - General Family Medicine 12/04/16 Radha, Ralph S [address] [place] [address] Specialty Repeat Photocomposing Machine Operator Cardiology 06/25/18 Juan Manuel Alvarado MD [address] [place] [address] Specialty Repeat Photocomposing Machine Operator Cardiology 06/26/18 Farm Products Shipper Relationship Specialty Start Date End Date Jenae [place] MD [address] [place] [address] PCP - General Family Medicine 12/04/16 Radha, [place] S [address] [place] [address] Specialty Repeat Photocomposing Machine Operator Cardiology 06/25/18 Juan Manuel Alvarado MD [address] [place] [phone] (Fax) Specialty Repeat Photocomposing Machine Operator Cardiology 06/26/18 Farm Products Shipper Relationship Specialty Start Date End Date Jenae [place] MD [address] [place] [address] PCP - General Family Medicine 12/04/16 Radha, Ralph S [address] [place] [address] Specialty Repeat Photocomposing Machine Operator Cardiology 06/25/18 Juan Manuel Alvarado MD [address] [place] [address] Specialty Repeat Photocomposing Machine Operator Cardiology 06/26/18 Farm Products Shipper Relationship Specialty Start Date End Date Jenae [place] MD [address] [place] [address] PCP - General Family Medicine 12/04/16 Ralph Garcia [address] [place] [address] Specialty Repeat Photocomposing Machine Operator Cardiology 06/25/18 Juan Manuel Alvarado MD [address] [place] [address] [phone] Specialty Repeat Photocomposing Machine Operator Cardiology 06/26/18 Farm Products Shipper Relationship Specialty Start Date End Date Jenae [place] MD [address] [place] [address] PCP - General Family Medicine 12/04/16 Ralph Garcia MD [address] [place] [address] Specialty Repeat Photocomposing Machine Operator Cardiology 06/25/18 Juan Manuel Alvarado MD [address] [place] [address] Specialty Repeat Photocomposing Machine Operator Cardiology 06/26/18 Farm Products Shipper Relationship Specialty Start Date End Date Jenae [place] MD [address] [place] [address] PCP - General Family Medicine 12/04/16 Ralph Garcia MD [address] [place] [address] Specialty Repeat Photocomposing Machine Operator Cardiology 06/25/18 Juan Manuel Alvarado MD [address] [place] [phone] Specialty Repeat Photocomposing Machine Operator Cardiology 06/26/18 Farm Products Shipper Relationship Specialty Start Date End Date Jenae [place] MD [address] [place] [address] PCP - General Family Medicine 12/04/16 Ralph Garcia MD [address] [address] Specialty Repeat Photocomposing Machine Operator Cardiology 06/25/18 Juan Manuel Alvarado MD [address] [place] [place] [phone] Specialty Repeat Photocomposing Machine Operator Cardiology 06/26/18 Farm Products Shipper Relationship Specialty Start Date End Date Jenae [place] MD [address] [place] [address] PCP - General Family Medicine 12/04/16 Ralph Garcia MD [address] [facility] [address] [address] Specialty Repeat Photocomposing Machine Operator Cardiology 06/25/18 Juan Manuel Alvarado MD [address] [address] Specialty Repeat Photocomposing Machine Operator Cardiology 06/26/18 Farm Products Shipper Relationship Specialty Start Date End Date Jenae [place] MD [address] [place] [address] PCP - General Family Medicine 12/04/16 Ralph Garcia MD [address] [place] [address] Specialty Repeat Photocomposing Machine Operator Cardiology 06/25/18 Juan Manuel Alvarado MD [address] [place] [address] Specialty Repeat Photocomposing Machine Operator Cardiology 06/26/18 Farm Products Shipper Relationship Specialty Start Date End Date Jenae [place] MD [address] [place] [address] PCP - General Family Medicine 12/04/16 Ralph Garcia MD [address] [place] [place] [address] Specialty Repeat Photocomposing Machine Operator Cardiology 06/25/18 Juan Manuel Alvarado MD [address] [address] [place] [address] Specialty Repeat Photocomposing Machine Operator Cardiology 06/26/18 Farm Products Shipper Relationship Specialty Start Date End Date Jenae [place] MD [address] [place] [address] PCP - General Family Medicine 12/04/16 Ralph Garcia MD [address] [place] [place] [address] Specialty Repeat Photocomposing Machine Operator Cardiology 06/25/18 Juan Manuel Alvarado MD [address] [place] [address] Specialty Repeat Photocomposing Machine Operator Cardiology 06/26/18 Farm Products Shipper Relationship Specialty Start Date End Date Jenae [place] MD [address] [place] [address] PCP - General Family Medicine 12/04/16 Ralph Garcia MD [address] [place] [address] Specialty Repeat Photocomposing Machine Operator Cardiology 06/25/18 Juan Manuel Alvarado MD [address] [place] [address] Specialty Repeat Photocomposing Machine Operator Cardiology 06/26/18 Farm Products Shipper Relationship Specialty Start Date End Date Jenae [place] MD [address] [place] [address] PCP - General Family Medicine 12/04/16 Ralph Garcia MD [address] [place] [address] Specialty Repeat Photocomposing Machine Operator Cardiology 06/25/18 Juan Manuel Alvarado MD [address] [place] [address] Specialty Repeat Photocomposing Machine Operator Cardiology 06/26/18 Farm Products Shipper Relationship Specialty Start Date End Date Jenae [place] MD [address] [place] [address] PCP - General Family Medicine 12/04/16 Ralph Garcia MD [address] [place] [address] Specialty Repeat Photocomposing Machine Operator Cardiology 06/25/18 Juan Manuel Alvarado MD [address] [place] [address] Specialty Repeat Photocomposing Machine Operator Cardiology 06/26/18 Janusz Davenport MD [address] [place] [address] Urology 12/31/23 Ángel Julio DO [address] [place] [address] Nephrology 12/31/23 Farm Products Shipper Relationship Specialty Start Date End Date Jenae [place] MD [address] [place] [address] PCP - General Family Medicine 12/04/16 Ralph Garcia MD [address] [address] Specialty Repeat Photocomposing Machine Operator Cardiology 06/25/18 Juan Manuel Alvarado MD [address] [place] [address] Specialty Repeat Photocomposing Machine Operator Cardiology 06/26/18 Janusz Davenport MD [address] [place] [address] Urology 12/31/23 Ángel Julio DO [address] [place] [address] Nephrology 12/31/23 Farm Products Shipper Relationship Specialty Start Date End Date Jenae Savage MD [address] [place] [address] PCP - General Family Medicine 12/04/16 Ralph Garcia MD [address] [address] Specialty Repeat Photocomposing Machine Operator Cardiology 06/25/18 Juan Manuel Alvarado MD [address] [place] [address] (Fax) Specialty Repeat Photocomposing Machine Operator Cardiology 06/26/18 Janusz Davenport MD [address] [place], [place] [id number] Urology 12/31/23 Ángel Julio DO [address] [place], [place] [phone] Nephrology 12/31/23 Farm Products Shipper Relationship Specialty Start Date End Date Jenae [place] MD [address] [place] [address] PCP - General Family Medicine 12/04/16 Ralph Garcia MD [address] [address] Specialty Repeat Photocomposing Machine Operator Cardiology 06/25/18 Juan Manuel Alvarado MD [address] [place] [address] (Fax) Specialty Repeat Photocomposing Machine Operator Cardiology 06/26/18 Janusz Davenport MD [address] [place] [address] Urology 12/31/23 Ángel Julio DO [address] [place] [address] Nephrology 12/31/23 FOR RECORDS PERTAINING TO PATIENTS [...] BE BASED ON THE PRIMARY CLINICAL RECORDS. [facility]. provides no warranty or guarantee of the accuracy or completeness of information in this document.
[2024-02-05 06:22] LABS: Bacteria 0 SEEN /hpf (None Seen); Mucous, Urine 0 SEEN /hpf (<or=2+); Red Blood Cells-Urine 0 SEEN /hpf (0-5); White Blood Cells 0 SEEN /hpf (0-5)
[2024-02-05 06:23] LABS: Color, Urine Yellow (Yellow); Glucose, Dipstick Normal (Normal); Ketone-Dipstick 5 mg/dl (Negative); Leukocyte Esterase-Dipstick Negative /ul (Negative); Nitrite-Dipstick Negative (Negative); Occult Blood-Urine Negative /ul (Negative); Protein-Dipstick 15 mg/dl (Negative); Urine Bilirubin Dipstick Negative (Negative); Urine Clarity Clear (Clear); Urine Urobilinogen Normal (Normal)
[2024-02-05 06:38] LABS: Squamous Epithelial Cells - UA 0-5 SEEN /hpf (0-5)
[2024-02-05 07:03] VITALS: BP 146/63; PULSE 56; RESP 18; O2SAT 97
[2024-02-05 07:12] VITALS: BP 146/63; PULSE 60; RESP 16; TEMP 36.8; O2SAT 97
== END 2024-02-05 07:14 | disposition home or self-care (01) ==
PROVIDERS: Emergency Provider Emergency Medicine; PCP Family Medicine; Visit Provider Emergency Medicine
DX: N13.2 Hydronephrosis with renal and ureteral calculous obstruction (principal); E11.9 Type 2 diabetes mellitus without complications; N17.9 Acute kidney failure, unspecified; N28.1 Cyst of kidney, acquired; I10 Essential (primary) hypertension; E78.5 Hyperlipidemia, unspecified; Z90.49 Acquired absence of other specified parts of digestive tract; Z79.82 Long term (current) use of aspirin; Z79.899 Other long term (current) drug therapy; Z86.711 Personal history of pulmonary embolism
CPT/HCPCS: 74176; 80048; 81001; 85025; 96374; 96375; 99283; A4216; J2405

== ENCOUNTER → 2024-02-13 | Outpatient (CLI) | payer MEDICARE, OTHER, SELFPAY | END | disposition home or self-care (01) | LOC: PSN 08:18 | PROVIDERS: PCP Family Medicine; Referring Provider Physician Assistant Medical; Visit Provider Physician Assistant Medical | DX: I49.8 Other specified cardiac arrhythmias (principal) | CPT/HCPCS: 93225; 93226 ==

== ENCOUNTER 2024-05-14 12:17 | Emergency (ER) | payer MEDICARE, OTHER, SELFPAY ==
[2024-05-14 12:17] VITALS: BP 147/104; PULSE 58; RESP 19; TEMP 36; O2SAT 97; BMI 27.3
[2024-05-14] MEDS: Ondansetron 4 MG/2 ML Vial IV (13:25)
[2024-05-14] MEDS: morphine 8 MG/ML Syringe 6 MG IV (13:25)
--- NOTE | 2024-05-14 13:34 | EX.ED.GENINJ ---
HPI <Dr. Zainab Sorensen DO - Last Filed: 05/14/24 17:14> History of Present Illness Chief Complaint: Fall Informant: patient Narrative Narrative: Patient is 83-year-old male with history of kidney stones presenting with abdominal pain after a fall. He states he was in his normal state of health this morning and was walking around 11 AM when he tripped on uneven sidewalk. He fell forward landing on his hands and his knees. Immediately after the fall he had pretty severe pain in his lower abdomen more diffusely but worse on the right. States he felt nauseous getting up. He PFSH <Dr. Zainab Sorensen DO - Last Filed: 05/14/24 17:14> [facility] Medical History Cyst of kidney, acquired Pulmonary embolism Essential (primary) hypertension Contact dermatitis First degree AV block Accelerated junctional rhythm Hyperlipidemia Syncope and collapse (05/2018) Bronchitis Sinusitis Diabetes Hx of fever Home Medications ?Medication ?Instructions ?Recorded ?Last Taken ?Type [id number] 300 mcg-K 60 1 tab PO DAILY vitamin 04/11/17 05/21/18 History mcg-lycop 600 mcg-lutein 300 mcg tablet (Centrum Silver Men) tadalafil 20 mg tablet 20 mg PO DAILY PRN Erectile 02/26/19 Unknown History Dysfunction ondansetron 4 mg disintegrating 4 mg PO Q6H PRN nausea and 09/07/21 Unknown Rx tablet vomiting #10 tabs cholecalciferol (vitamin D3) 50 50 mcg PO DAILY 11/02/21 Unknown History mcg (2,000 unit) capsule aspirin 81 mg tablet,delayed 81 mg PO DAILY #90 tabs 03/22/22 Unknown Rx release (Adult Aspirin Regimen) cetirizine 10 mg tablet 10 mg PO DAILY PRN allergy symptoms 01/24/23 Unknown History pantoprazole 40 mg tablet,delayed 40 mg PO DAILY 01/24/23 Unknown History release amlodipine 10 mg tablet 10 mg PO DAILY #90 tabs 01/24/24 Unknown Rx doxazosin 4 mg tablet 4 mg PO QHS #90 tabs 01/24/24 Unknown Rx losartan 50 mg tablet 50 mg PO DAILY #90 tabs 01/24/24 Unknown Rx simvastatin 20 mg tablet See Rx Instructions .Route 01/24/24 Unknown Rx .COMPLEX #90 tabs oxycodone-acetaminophen 5 mg-325 1 tab PO Q6H PRN PRN Pain 3 days 02/03/24 Unknown Rx mg tablet #12 TABLETS hydrocodone-acetaminophen 5-325mg 1 tab PO Q6H PRN PRN Pain 3 days 02/05/24 Unknown Rx 5mg-325mg #12 TABLETS ondansetron 4 mg disintegrating 4 mg PO Q8H PRN PRN Nausea #10 tabs 02/05/24 Unknown Rx tablet hydrocodone-acetaminophen 5-325mg 1 tab PO Q8H PRN Pain 3 days #10 05/14/24 Unknown Rx 5mg-325mg TABLETS Allergy/AdvReac Type Severity Reaction Status Date / Time lisinopril AdvReac Intermediate Dry Verified 05/14/24 12:18 persistent cough Family History Mother Diabetes CVA (cerebral vascular accident) Father Diabetes Heart disease Surgical History Hx of cholecystectomy Social History Smoking Status: Never smoker alcohol intake: never ROS <Dr. Zainab Sorensen DO - Last Filed: 05/14/24 17:14> ROS ED Constitutional Constitutional ED: Denies chills or fever(s) Cardiovascular Cardiovascular: Denies chest pain Respiratory/Chest Respiratory/Chest: Denies cough Gastrointestinal Gastrointestinal: Reports abdominal pain and nausea; Denies constipation, diarrhea or vomiting Genitourinary Genitourinary ED: Reports other Details: Notes he has not urinated since this fall ; Denies dysuria or hematuria Musculoskeletal Musculoskeletal: Denies arthralgias, back pain or myalgias Integumentary Denies rash Hematologic/Lymphatic Hematologic/Lymphatic: Denies easy bleeding or easy bruising EXAM <Dr. Zainab Sorensen DO - Last Filed: 05/14/24 17:14> Physical Exam Const Vital Signs: 05/14/24 12:17 05/14/24 12:49 05/14/24 16:17 Temperature 96.8 F L Temperature Source Temporal Pulse Rate 58 L 53 L Respiratory Rate 19 H 12 Respiratory Effort Normal Respiratory Depth Normal Respiratory Pattern Normal Blood Pressure 147/104 H 141/63 H Blood Pressure Mean 118 89 Pulse Ox 97 94 Oxygen Delivery Method Room Air Room Air Room Air 05/14/24 20:00 05/14/24 21:00 Temperature 97.7 F L Temperature Source Pulse Rate 66 87 Respiratory Rate 12 16 Respiratory Effort Respiratory Depth Respiratory Pattern Blood Pressure 162/67 H 145/74 H Blood Pressure Mean 98 97 Pulse Ox 94 99 Oxygen Delivery Method Room Air Positive well nourished and well developed General Appearance ED: well developed and NAD HEENT atraumatic Nose: Negative for septum abnormal Eyes PERRL and EOMs intact bilaterally Neck full ROM General: Negative for tenderness Chest Wall inspection of chest normal and palpation of chest normal Resp normal respiratory effort and clear to auscultation bilaterally Cardio regular rhythm Rate: regular rate GI normal to inspection, nondistended, normoactive bowel sounds and non-tender GI Narrative: Patient reports tenderness and has lower abdomen but is not reproducible with palpation. Palpation: Negative for tender or guarding Back/Spine General Back: Negative for CVA tenderness Thoracic Spine / Upper Back: Negative for thoracic spinal tenderness Extremity normal to inspection and full ROM General Extremety ED: Negative for deformity or tenderness General Extremity: Negative for deformity Neuro oriented x3 and moves all extremities Psych mental status grossly normal and thought process normal Skin no rashes or lesions noted and no wounds <Dr. Kai Rao, DO - Last Filed: 05/15/24 03:41> Physical Exam Const Vital Signs: 05/14/24 12:17 05/14/24 12:49 05/14/24 16:17 Temperature 96.8 F L Temperature Source Temporal Pulse Rate 58 L 53 L Respiratory Rate 19 H 12 Respiratory Effort Normal Respiratory Depth Normal Respiratory Pattern Normal Blood Pressure 147/104 H 141/63 H Blood Pressure Mean 118 89 Pulse Ox 97 94 Oxygen Delivery Method Room Air Room Air Room Air 05/14/24 20:00 05/14/24 21:00 Temperature 97.7 F L Temperature Source Pulse Rate 66 87 Respiratory Rate 12 16 Respiratory Effort Respiratory Depth Respiratory Pattern Blood Pressure 162/67 H 145/74 H Blood Pressure Mean 98 97 Pulse Ox 94 99 Oxygen Delivery Method Room Air MDM <Dr. Zainab Sorensen, DO - Last Filed: 05/14/24 17:14> [facility] MDM Narrative Medical decision making narrative: Patient is evaluated for sudden onset of abdominal pain after a mechanical fall. He did not land on his stomach with thinks maybe his elbow did go into his abdomen. He does seem quite uncomfortable upon initial arrival but is otherwise hemodynamically stable. Heart rate is mildly low however this appears chronic for patient. Patient is given dose of morphine and then Zofran for symptom control. Will obtain blood work occluding CBC, CMP and urinalysis as well as CT abdomen pelvis. Differential includes renal colic, intra-abdominal trauma from the fall. Given that he was in his normal state of health immediately before the fall lower suspicion for more insidious cause such as infection. Notified the patient's condition of pain. Is given a dose of fentanyl. Lab work largely unremarkable. Patient is having elevation of his creatinine which is at his baseline. Hemoglobin normal at 13.2. Normal white blood cell count. Urinalysis shows some blood. CT of the abdomen and pelvis without contrast (patient has baseline CKD) show has bilateral renal cysts largest on the left measuring up to 13.2 cm. There is fat stranding and fluid collection adjacent to the cyst on the right concern for ruptured cyst. Case discussed with urology, Dr. Dai. He reviews the imaging. He suspects that the cyst did rupture. He questions if there is blood versus proteinaceous material from the ruptured cyst. He states mostly's times these are treated conservatively and just monitored. His suspicion is that there is not any internal bleeding and this is all just from the cyst rupturing. If there is bleeding however it would require IR intervention. We discussed immediate transfer versus monitoring the patient's H&H/hemodynamics and if stable discharge home with close return precautions. Dr. Dai feels that discharge home would be very appropriate if he remains hemodynamically stable. Discussed options with patient including immediate transfer versus 6-hour repeat H&H and monitoring in the ER. Patient would like to be monitored in the ER. His pain has not returned and is much improved after receiving pain medication. Patient will be signed out to oncoming physician pending repeat hemoglobin. If this remains stable (there might be some slight dilution as he did receive IV fluids in the emergency room) will be discharged home with close return precautions and a short course of [place] for pain control. He will follow-up outpatient with his urologist to [facility]. If hemoglobin drops will require transfer to trauma/IR capable facility. Lab Data Attestation: I reviewed the patient's lab results. Labs: Laboratory Results - last 24 hr 05/14/24 05/14/24 05/14/24 13:24 15:30 19:25 WBC 8.1 RBC 4.70 Hgb 13.2 12.8 L Hct 41.0 39.4 L MCV 87.2 MCH 28.1 MCHC 32.2 RDW Std Deviation 44.1 H RDW Coeff of David 13.9 Plt Count 156 MPV 10.2 Immature Gran % (Auto) 0.400 Neut % (Auto) 87.2 H Lymph % (Auto) 6.8 L Barren % (Auto) 3.7 Eos % (Auto) 1.5 Baso % (Auto) 0.4 Absolute Neuts (auto) 7.0 Absolute Lymphs (auto) 0.55 L Nucleated RBC % 0 Sodium 142 Potassium 4.0 Chloride 111 H Carbon Dioxide 24.0 Anion Gap 6 BUN 38 H Creatinine 1.72 H Estim Creat Clear Calc 33.01 Est GFR (MDRD) Af Amer 49 L Est GFR (MDRD) Non-Af 40 L BUN/Creatinine Ratio 22.1 H Glucose 187 H Calcium 9.1 Total Bilirubin 1.10 H AST 17 ALT 21 Alkaline Phosphatase 46 Total Protein 7.5 Albumin 3.8 Globulin 3.7 Albumin/Globulin Ratio 1.0 Urine Color Yellow Urine Clarity Sl. Cloudy Urine pH 6.0 Ur Specific [place] 1.020 Urine Protein 30 H Urine Glucose (UA) Normal Urine Ketones Negative Urine Occult Blood 250 H Urine Nitrite Negative Urine Bilirubin Negative Urine Urobilinogen Normal Ur Leukocyte Esterase Negative Urine RBC 25-50 SEEN Urine WBC 0-5 SEEN Ur Squamous Epith Cells 0 SEEN Urine Bacteria RARE Urine Mucus 0 SEEN Radiography Diagnostic Testing: Clinical Impression(s) from Imaging Studies Abdomen/Pelvis CT 05/14/24 13:37 IMPRESSION: 1. Bilateral renal cysts, largest on the left measuring up to 13.2 cm. There is fat stranding and fluid collection adjacent to the cyst on the right. Rupture of the cyst can not be entirely excluded. 2. Colonic diverticulosis without acute diverticulitis. Findings were discussed with Dr. Sorensen by phone on 05/14/2024 at 1428 hours. Reading Location: [facility] Management Discussion w/another healthcare provider: [employer] (Urology ) <Dr. Kai Rao, DO - Last Filed: 05/15/24 03:41> [facility] MDM Narrative Medical decision making narrative: Patient is evaluated for sudden onset of abdominal pain after a mechanical fall. He did not land on his stomach with thinks maybe his elbow did go into his abdomen. He does seem quite uncomfortable upon initial arrival but is otherwise hemodynamically stable. Heart rate is mildly low however this appears chronic for patient. Patient is given dose of morphine and then Zofran for symptom control. Will obtain blood work occluding CBC, CMP and urinalysis as well as CT abdomen pelvis. Differential includes renal colic, intra-abdominal trauma from the fall. Given that he was in his normal state of health immediately before the fall lower suspicion for more insidious cause such as infection. Notified the patient's condition of pain. Is given a dose of fentanyl. Lab work largely unremarkable. Patient is having elevation of his creatinine which is at his baseline. Hemoglobin normal at 13.2. Normal white blood cell count. Urinalysis shows some blood. CT of the abdomen and pelvis without contrast (patient has baseline CKD) show has bilateral renal cysts largest on the left measuring up to 13.2 cm. There is fat stranding and fluid collection adjacent to the cyst on the right concern for ruptured cyst. Case discussed with urology, Dr. Dai. He reviews the imaging. He suspects that the cyst did rupture. He questions if there is blood versus proteinaceous material from the ruptured cyst. He states mostly's times these are treated conservatively and just monitored. His suspicion is that there is not any internal bleeding and this is all just from the cyst rupturing. If there is bleeding however it would require IR intervention. We discussed immediate transfer versus monitoring the patient's H&H/hemodynamics and if stable discharge home with close return precautions. Dr. Dai feels that discharge home would be very appropriate if he remains hemodynamically stable. Discussed options with patient including immediate transfer versus 6-hour repeat H&H and monitoring in the ER. Patient would like to be monitored in the ER. His pain has not returned and is much improved after receiving pain medication. Patient will be signed out to oncoming physician pending repeat hemoglobin. If this remains stable (there might be some slight dilution as he did receive IV fluids in the emergency room) will be discharged home with close return precautions and a short course of [place] for pain control. He will follow-up outpatient with his urologist to [facility]. If hemoglobin drops will require transfer to trauma/IR capable facility. Dr. Rao: Patient signed out to me by day physician. At the time of signout we were awaiting a repeat 6-hour H&H. Patient's repeat hemoglobin 12.8. This is slightly lower than 13.2 but overall is stable. He did receive fluids so I suspect that this little drop is dilutional in nature. On reevaluation patient is not having any abdominal pain. His vitals have remained stable. Patient was updated on all his results. Patient is comfortably discharging home and states that he would like to. Follow-up with his outpatient urologist as well as PCP. He confirmed understanding of the plan. Return precautions explained. Lab Data Labs: Laboratory Results - last 24 hr 05/14/24 05/14/24 05/14/24 13:24 15:30 19:25 WBC 8.1 RBC 4.70 Hgb 13.2 12.8 L Hct 41.0 39.4 L MCV 87.2 MCH 28.1 MCHC 32.2 RDW Std Deviation 44.1 H RDW Coeff of David 13.9 Plt Count 156 MPV 10.2 Immature Gran % (Auto) 0.400 Neut % (Auto) 87.2 H Lymph % (Auto) 6.8 L Barren % (Auto) 3.7 Eos % (Auto) 1.5 Baso % (Auto) 0.4 Absolute Neuts (auto) 7.0 Absolute Lymphs (auto) 0.55 L Nucleated RBC % 0 Sodium 142 Potassium 4.0 Chloride 111 H Carbon Dioxide 24.0 Anion Gap 6 BUN 38 H Creatinine 1.72 H Estim Creat Clear Calc 33.01 Est GFR (MDRD) Af Amer 49 L Est GFR (MDRD) Non-Af 40 L BUN/Creatinine Ratio 22.1 H Glucose 187 H Calcium 9.1 Total Bilirubin 1.10 H AST 17 ALT 21 Alkaline Phosphatase 46 Total Protein 7.5 Albumin 3.8 Globulin 3.7 Albumin/Globulin Ratio 1.0 Urine Color Yellow Urine Clarity Sl. Cloudy Urine pH 6.0 Ur Specific [place] 1.020 Urine Protein 30 H Urine Glucose (UA) Normal Urine Ketones Negative Urine Occult Blood 250 H Urine Nitrite Negative Urine Bilirubin Negative Urine Urobilinogen Normal Ur Leukocyte Esterase Negative Urine RBC 25-50 SEEN Urine WBC 0-5 SEEN Ur Squamous Epith Cells 0 SEEN Urine Bacteria RARE Urine Mucus 0 SEEN Radiography Diagnostic Testing: Clinical Impression(s) from Imaging Studies Abdomen/Pelvis CT 05/14/24 13:37 IMPRESSION: 1. Bilateral renal cysts, largest on the left measuring up to 13.2 cm. There is fat stranding and fluid collection adjacent to the cyst on the right. Rupture of the cyst can not be entirely excluded. 2. Colonic diverticulosis without acute diverticulitis. Findings were discussed with Dr. Sorensen by phone on 05/14/2024 at 1428 hours. Reading Location: [facility] Discharge Plan Triage Chief Complaint: Fall ED Provider: Kai Rao Dx/Rx/DC Orders Clinical Impression: Ruptured cyst of kidney, Acute right flank pain Instructions: Simple Kidney Cysts Prescriptions: New hydrocodone-acetaminophen 5-325 mg tablet 1 tab PO Q8H PRN (Reason: Pain) 3 Days Qty: 10 0RF No Action [id number] [Centrum Silver Men] 300-600-300 mcg tablet 1 tab PO DAILY tadalafil 20 mg tablet 20 mg PO DAILY PRN (Reason: Erectile Dysfunction) cholecalciferol (vitamin D3) 50 mcg (2,000 unit) capsule 50 mcg PO DAILY pantoprazole 40 mg tablet,delayed release (DR/EC) 40 mg PO DAILY cetirizine 10 mg tablet 10 mg PO DAILY PRN (Reason: allergy symptoms) amlodipine 10 mg tablet 10 mg PO DAILY Qty: 90 3RF doxazosin 4 mg tablet 4 mg PO QHS Qty: 90 3RF losartan 50 mg tablet 50 mg PO DAILY Qty: 90 3RF simvastatin 20 mg tablet See Rx Instructions .ROUTE .COMPLEX Qty: 90 3RF Dose Instruction: TAKE 1 TABLET DAILY FOR CHOLESTEROL Rx Instructions: TAKE 1 TABLET DAILY FOR CHOLESTEROL ondansetron 4 mg tablet,disintegrating 4 mg PO Q6H PRN (Reason: nausea and vomiting) Qty: 10 0RF oxycodone-acetaminophen 5-325 mg tablet 1 tab PO Q6H PRN PRN (Reason: Pain) 3 Days Qty: 12 0RF ondansetron 4 mg tablet,disintegrating 4 mg PO Q8H PRN PRN (Reason: Nausea) Qty: 10 0RF hydrocodone-acetaminophen 5-325 mg tablet 1 tab PO Q6H PRN PRN (Reason: Pain) 3 Days Qty: 12 0RF aspirin [Adult Aspirin Regimen] 81 mg tablet,delayed release (DR/EC) 81 mg PO DAILY Qty: 90 3RF Primary Care Provider: Jeremiah Savage Referrals: Jeremiah Savage MD [Primary Care Provider] - Activity Restrictions/Additional Instructions: It appears that when he fell today you ruptured/popped a large cyst on your right kidney. This is likely the cause of your pain. If your symptoms worsen with increased pain, you feel lightheaded or you are unable to urinate please immediately return to the emergency room. Print Language: Faroese Disposition Disposition: Home, Self Care Discharge Date/Time: 05/14/24 21:07
--- NOTE | 2024-05-14 13:37 | CT_ITS ---
EXAM: CT Abdomen and Pelvis Without Intravenous Contrast CLINICAL INDICATION: TECHNIQUE: Axial computed tomography images of the abdomen and pelvis without intravenous contrast. This CT exam was performed using one or more of the following dose reduction techniques: automated exposure control, adjustment of the mA and/or kV according to patient size, and/or use of iterative reconstruction technique. COMPARISON: 02/05/2024 FINDINGS: LUNG BASES: Partially visualized lung emphysema. No consolidation. ABDOMEN: LIVER: Unremarkable. GALLBLADDER AND BILE DUCTS: Gallbladder is surgically absent. No ductal dilation. PANCREAS: Unremarkable. No ductal dilation. SPLEEN: Unremarkable. No splenomegaly. ADRENALS: Unremarkable. No mass. KIDNEYS AND URETERS: Bilateral renal cysts, largest on the left measuring up to 13.2 cm. There is fat stranding and fluid collection adjacent to the cyst on the right. Rupture of the cyst can not be entirely excluded. STOMACH AND BOWEL: Colonic diverticulosis without acute diverticulitis. No obstruction. PELVIS: APPENDIX: No findings to suggest acute appendicitis. BLADDER: Unremarkable. No stones. REPRODUCTIVE: Unremarkable as visualized. ABDOMEN and PELVIS: INTRAPERITONEAL SPACE: Unremarkable. No free air. No significant fluid collection. BONES/JOINTS: No acute fracture. No dislocation. SOFT TISSUES: Unremarkable. VASCULATURE: Unremarkable. No abdominal aortic aneurysm. LYMPH NODES: Unremarkable. No enlarged lymph nodes. CT/Abdomen/Pelvis without Cont IMPRESSION: 1. Bilateral renal cysts, largest on the left measuring up to 13.2 cm. There is fat stranding and fluid collection adjacent to the cyst on the right. Rupture of the cyst can not be entirely excluded. 2. Colonic diverticulosis without acute diverticulitis. Findings were discussed with Dr. Sorensen by phone on 05/14/2024 at 1428 hours. Reading Location: [facility]
[2024-05-14 13:41] LABS: Absolute Lymphocyte Count 0.55 X10^3/uL (0.83-4.51); Basophil# 0.03 X10^3/uL; Basophil% 0.4 % (0-1); Eosinophil# 0.12 X10^3/uL; Eosinophils% 1.5 % (0-5); Hemoglobin 13.2 g/dL (13.0-16.5); Lymphocyte # 0.55 X10^3/ul (0.83-4.51); Lymphocyte % 6.8 % (19-41); Mean Corp Hgb Conc 32.2 g/dL (32-36); Mean Corpuscular Hgb 28.1 pg (27.0-32.0); Mean Corpuscular Volume 87.2 fL (80-94); Mean Platelet Vol. 10.2 fl (6.2-12.0); Monocyte% 3.7 % (0-10); NRBC Flagged by Analyzer 0 % (0-5); Neutrophil # 7.02 X10^3/uL (2.7-7.7); Neutrophil % 87.2 % (47-70); POSITIVE DIFFERENTIAL YES; Platelet Count 156 K/mm3 (150-450); RBC Distribution Width CV 13.9 % (11.6-14.6); RBC Distribution Width SD 44.1 fl (35.1-43.9); White Blood Count 8.1 K/mm3 (4.4-11.0)
[2024-05-14] MEDS: 0.9% Normal Saline (1000mL) 1,000 ML 999 ML IV (14:02)
[2024-05-14 14:05] LABS: AST(SGOT) 17 U/L (15-37); Alanine Aminotransfer ALT/SGPT 21 U/L (16-61); Albumin, Serum 3.8 g/dL (3.2-5.0); Alkaline Phosphatase 46 U/L (45-117); Anion Gap 6 (5-15); BUN 38 mg/dL (7-18); BUN/Creat Ratio 22.1 RATIO (10-20); Calcium,Total 9.1 mg/dL (8.5-10.1); Chloride 111 mmol/L (98-107); Creatinine, Serum 1.72 mg/dL (0.70-1.30); EST Glomerular Filtration Rate 40 mL/min (>60); Est Glom Filt Rate - Afr Amer 49 mL/min (>60); Estimated Creatinine Clearance 33.01 ml/min; Globulin 3.7 g/dL (2.2-4.2); Glucose 187 mg/dL (74-106); Protein, Total 7.5 g/dL (6.4-8.2); Sodium Level 142 mmol/L (136-145)
[2024-05-14] MEDS: fentaNYL 100 MCG/2 ML Ampul 75 MCG IV (14:13)
[2024-05-14 15:36] LABS: Mucous, Urine 0 SEEN /hpf (<or=2+); Squamous Epithelial Cells - UA 0 SEEN /hpf (0-5)
[2024-05-14 15:46] LABS: Color, Urine Yellow (Yellow); Glucose, Dipstick Normal (Normal); Ketone-Dipstick Negative (Negative); Leukocyte Esterase-Dipstick Negative /ul (Negative); Nitrite-Dipstick Negative (Negative); Occult Blood-Urine 250 /ul (Negative); Protein-Dipstick 30 mg/dl (Negative); Urine Bilirubin Dipstick Negative (Negative); Urine Clarity Sl. Cloudy (Clear); Urine Urobilinogen Normal (Normal)
[2024-05-14 16:17] VITALS: BP 141/63; PULSE 53; RESP 12; O2SAT 94
[2024-05-14 17:12] LABS: Bacteria RARE /hpf (None Seen); Red Blood Cells-Urine 25-50 SEEN /hpf (0-5); White Blood Cells 0-5 SEEN /hpf (0-5)
[2024-05-14 19:36] LABS: Hematocrit 39.4 % (40-54); Hemoglobin 12.8 g/dL (13.0-16.5)
[2024-05-14 20:00] VITALS: BP 162/67; PULSE 66; RESP 12; O2SAT 94
[2024-05-14 21:00] VITALS: BP 145/74; PULSE 87; RESP 16; TEMP 36.5; O2SAT 99
== END 2024-05-14 21:07 | disposition home or self-care (01) ==
PROVIDERS: Emergency Medicine; Emergency Provider Surgery; PCP Family Medicine; Visit Provider Surgery
DX: R10.30 Lower abdominal pain, unspecified (principal); E11.22 Type 2 diabetes mellitus with diabetic chronic kidney disease; N28.1 Cyst of kidney, acquired; N18.9 Chronic kidney disease, unspecified; W18.09XA Striking against other object with subsequent fall, initial encounter; R11.0 Nausea; I12.9 Hypertensive chronic kidney disease with stage 1 through stage 4 chronic kidney disease, or unspecified chronic kidney disease; E78.5 Hyperlipidemia, unspecified; Z79.82 Long term (current) use of aspirin; Z90.49 Acquired absence of other specified parts of digestive tract; Z86.711 Personal history of pulmonary embolism; Z79.899 Other long term (current) drug therapy
CPT/HCPCS: 74176; 80053; 81001; 85014; 85018; 85025; 96361; 96374; 96375; 99283; A4216; J2405

== ENCOUNTER 2025-02-18 15:47 | Emergency (ER) | payer MEDICARE, OTHER, SELFPAY ==
[2025-02-18 15:48] VITALS: BP 144/76; PULSE 65; RESP 16; TEMP 36.2; O2SAT 99; BMI 28.0
--- NOTE | 2025-02-18 18:00 | RAD_ITS ---
PROCEDURE: LEFT HAND MIN 3 VIEWS 02/18/2025 REASON FOR EXAM: INJURY TECHNIQUE: Procedure Code: RISHABH Modality: DX Procedure: HAND MIN 3 VIEWS Laterality: Left COMPARISON: None. FINDINGS: No acute fracture or dislocation. Alignment is anatomic. Preserved joint spaces. No aggressive osseous lesion. No marked soft tissue swelling or radiopaque foreign body. RAD/Hand Min 3 Views IMPRESSION: No acute fracture or dislocation. Reading Location: [id number]
--- OUTSIDE RECORDS SUMMARY | 2025-02-18 22:18 | XMS RPT_ITS | CCD ---
Author Organization [facility] Care Team Providers Care Nurse Receptionist Name Role Phone JUAN MANUEL ALVARADO Attending [...] Jenae Savage MD Primary Care Provider Radha, Bascom S Unavailable Juan Manuel Alvarado MD Unavailable Jenae Savage MD Primary Care Provider Radha, Bascom S Unavailable Dr. Jenae Savage Primary Care Provider Dr. Jenae Savage Referring Provider Pamela WESLEY, LUPILLO Mcfadden Attending Provider Jenae Savage MD Primary Care Provider Radha, Bascom S Unavailable Juan Manuel Alvarado MD Unavailable Radha, Bascom S Unavailable Juan Manuel Alvarado MD Unavailable Radha AMEZQUITA Ralph S Unavailable Elderbrock MD, Jenae D Primary Care Provider Janusz Davenport MD Unavailable Maditz DO, Ángel Unavailable [facility] CHILDCARE AIDE.INSTALLATION COORDINATOR, Elizabeth Unavailable James CHILDCARE AIDE.INSTALLATION COORDINATOR, Rafael Unavailable [facility] CHILDCARE AIDE.INSTALLATION COORDINATOR, Elizabeth Unavailable [facility] CHILDCARE AIDE.INSTALLATION COORDINATOR, Elizabeth Bhumika Unavailable [facility] GRANITE WORKER, Zane Hwang Attending Unavailable Elderbrock, Jenae Referring Unavailable Elderbrock, Jenae Primary Care Unavailable Jose Pacheco Attending Unavailable Elderbrock, Jenae Primary Care Unavailable Pamela WESLEY, Liliya Mcfadden Referring Unavail able Kai Rao Attending Unavailabl e Elderbrock, Jenae Primary Care Unavailable ELDERBROCK, JENAE D Primary Care Unavailable JAMES, RAFAEL Attending Unavailable ELDERBROCK, JNEAE D Primary Care Unavailable STAR SHANNON Attending Unavailab le ELDERBROCK, EJNAE D Primary Care Unavailable MADITZ, ÁNGLE Attending Unavailable ELDERBROCK, JENAE D Primary Care Unavailable JAMES, RAFAEL Referring Unavailable ELDERBROCK, JENAE D Primary Care Unavailable JAMES, RAFAEL Attending Unavailable ELDERBROCK, JENAE D Primary Care Unavailable JAMES, RAFAEL Referring Unavailable GARY KELLY Attending Unavailable GINGER KHAN Referring Unavailable ELDERBROCK, JENAE D Primary Care Unavailable ELDERBROCK, JENAE Pedro Primary Care Unavailable BRISEYDA DELGADO Attending Unavailable SELF Referring Unavailable ELDERBROCK, JENAE Vasquez Primary Care Unavailable BRISEYDA DELGADO Referring Unavailable ELDERBROCK, JENAE Pedro Primary Care Unavailable ELDERBROCK, JENAE D Primary Care Unavailable ELDERBROCK, JENAE D Referring Unavailable ELDERBROCK, JENAE D Primary Care Unavailable ELDERBROCK, JENAE D Primary Care Unavailable JAMES, RAFAEL Referring Unavailable JANUSZ DAVENPORT Attending Unavailabl e JANUSZ DAVENPORT Referring Unavailabl e ELDERBROCK, JENAE Vasquez Primary Care Unavailable KRJANUSZ PINTO Referring Unavailabl e ELDERBROCK, JENAE D Primary Care Unavailable JANUSZ DAVENPORT Attending Unavailabl e ELDERBROCK, JENAE Vasquez Primary Care Unavailable JANUSZ DAVENPORT Attending Unavailabl e ELDERBROCK, JENAE Pedro Primary Care Unavailable Allergies Allergy Classification Reported Allergen(s) Allergy Type Date of Onset Reaction(s) Facility (20 sources) Lisinopril; Translations: [LISINOPRIL] Drug Allergy 11-24-2022 Intolerance [facility] Work Phone: (1 source) Lisinopril Drug Allergy 05-14-2024 [facility] Repository Medications Current Medications Medication Drug Class(es) Dates Sig (Normalized) Sig (Original) amLODIPine 10 mg oral tablet (20 sources) Dihydropyridine Calcium Channel Gonzales Start: 05-30-2024 take 1 tablet by mouth once daily amLODIPine (NORVASC) 10 mg tablet Indications: Essential hypertension, benign Take 1 tablet by mouth once daily. 05/30/2024 Active Start: 11-23-2023 End: 11-23-2023 take 1 tablet by mouth once daily amLODIPine (NORVASC) 2.5 mg tablet Indications: Essential hypertension, benign Take 1 tablet by mouth once daily. 30 tablet 1 11/23/2023 11/23/2023 Discontinued (Adjust Sig - Block E-Cancel) Start: 04-25-2023 End: 05-30-2024 take 1 tablet by mouth once daily amLODIPine (NORVASC) 5 mg tablet Indications: Essential hypertension, benign Take 1 tablet by mouth once daily. 11/23/2023 05/30/2024 Discontinued (Adjust Sig - Block E-Cancel) Start: 11-28-2021 take 5 mg by mouth once daily Amlodipine Active 5 MG PO DAILY November 28, 2021 12:00am Start: 11-02-2021 End: 05-25-2023 take 1 tablet by mouth once daily amLODIPine (NORVASC) 10 mg tablet Take 1 tablet by mouth once daily. 11/22/2021 05/25/2023 Discontinued (Course of therapy completed) Start: 06-23-2021 End: 11-22-2021 take 5 mg by mouth once daily Amlodipine Active 5 MG P O DAILY June 23, 2021 12:03pm Comment on above: Take by mouth once d aily. Take 1 tablet by dipti th once daily. apixaban 5 mg oral tablet (11 sources) Factor Xa Inhibitor Start: 06-24-2021 End: 08-16-2022 take 0.5 tablet by mouth twice daily apixaban (ELIQUIS) 5 mg tab(s) Indications: Acute pulmonary embolism, unspecified pulmonary embolism type, unspecified whether acute cor pulmonale present (HCC) Take 0.5 tablets by mouth twice daily. 180 tablet 5 06/24/2021 11/22/2021 Discontinued (Course of therapy completed) Start: 05-13-2021 End: 09-06-2021 take 2 tablets by mouth twice daily, then take 1 tablet by mouth twice daily Apixaban (Eliquis) 5 MG tablet Active 2.5 MG PO TWICE A DAY September 06, 2021 10:15pm 10 mg twice a day for the first week. Then 5 mg twice a day. Comment on above: Take 0.5 tablets by mouth twice daily. aspirin 81 mg oral tablet (20 sources) Platelet Aggregation Inhibitor, Nonsteroidal Anti-inflammatory Drug take 1 tablet by mouth once daily Aspirin 81 mg Tab Take 81 mg by mouth once daily. Active Comment on above: Take 81 mg by mouth once daily. cetirizine hydrochloride 10 mg oral tablet (20 sources) Histamine-1 Receptor Antagonist Start: 023 End: 026 take 1 tablet by mouth once daily cetirizine (ZYRTEC) 10 mg tablet Take 1 tablet by mouth once daily. 90 tablet 3 12/01/2024 12/01/2025 Active Comment on above: Take 1 tablet by dipti th once daily. cholecalciferol 0.05 mg oral capsule (1 source) Vitamin D Start: take 50 ug by mouth once daily Cholecalciferol (Vitamin D3) Active 50 MCG PO DAILY November 02, 2021 12:00am cimetidine 300 mg oral tablet (11 sources) Histamine-2 Receptor Antagonist Start: 022 take 1 tablet by mouth at bedtime Cimetidine (Tagamet) 300 mg Tablet Active 600 MG PO AT BEDTIME September 06, 2021 10:13pm End: 11-24-2022 take 1 tablet by mouth once daily cimetidine (TAGAMET) 400 mg tablet Take 400 mg by mouth once daily. 11/24/2022 Discontinued (Course of therapy completed) Comment on above: Take 400 mg by mouth once daily. doxazosin 4 mg oral tablet (20 sources) alpha-Adrenergic Gonzales Start: 11-23-2023 take 1 tablet by mouth once daily at bedtime doxazosin (CARDURA) 4 mg tablet Take 1 tablet by mouth daily at bedtime. 11/23/2023 Active Start: 05-07-2022 End: 11-23-2023 take 1 tablet by mouth once daily at bedtime doxazosin (CARDURA) 2 mg tablet Take 1 tablet by mouth daily at bedtime. 05/07/2022 11/23/2023 Discontinued (Adjust Sig - Block E-Cancel) Start: 11-28-2021 take 2 mg by mouth at bedtime Doxazosin Active 2 MG PO AT BEDTIME 90 November 28, 2021 12:00am Comment on above: Take 1 tablet by [...] propionate 0.05 mg/actuat metered dose nasal spray (20 sources) Corticosteroid Start: 09-08-19 take 2 spray(s) by mouth once daily fluticasone (FLONASE) 50 mcg/actuation nasal spray Use 2 Sprays in each nostril once daily. Rinse mouth after use. 1 Each 3 09/07/2022 Active Comment on above: Use 2 Sprays in each nostril once daily. Rinse mouth after use. iv contrast (will be provided with radiology test) (2 sources) Start: 02-14-20 End: 02-15-20 iv contrast (will be provided with radiology test) MRI Kidney Inject, intravenously, once for 1 dose. No IV access, insert saline lock prior to the beginning of sedation, infusion, injection of imaging exam. Discontinue saline lock post exam. If Pt. has a central line or IVAD, may access for administration according to line specific nursing protocol. Once exam is complete flush line and de-access according to line specific nursing protocol in the MR contrast administration guidelines link. 1 Each 02/14/2024 02/15/2024 Active losartan potassium 50 mg oral tablet (20 sources) Angiotensin 2 Receptor Gonzales Start: 05-30-19 take 1 tablet by mouth twice daily losartan (COZAAR) 50 mg tablet Indications: Essential hypertension, benign , Stage 3b chronic kidney disease (HCC) Take 1 tablet by mouth two times a day. 180 tablet 3 05/30/2024 Active Start: 10-27-2022 End: 05-30-2024 take 1 tablet by mouth once losartan (COZAAR) 50 mg ta blet Take 1 tablet by mouth every afternoon. 10/27/2022 05/30/2024 Discontinued Comment on above: Take 1 tablet by dipti th every afternoon. Fwekumyx-Umh-Tu-Ly copen-Lutein (Centrum Silver Men) 300-600-300 mcg tablet (2 sources) Start: 04-11-2017 take 300-600 tablets by mouth once daily Jzogiawd-Fpr-Bs-L ycopen-Lutein (Centrum Silver Men) 300-600-300 mcg tablet Active 1 TABLET PO DAILY April 11, 2017 12:29pm Start: 04-11-2017 take 300-600 tablets by mouth once daily Cjwejlvr-Uya-Vm-Lycopen-Lutein (Centrum Silver Men) 300-600-300 mcg tablet Active 1 TABLET PO DAILY April 11, 2017 1:00am MULTIVITAMIN TAB (20 sources) Start: 07-05-2007 MULTIVITAMIN TAB Take one(1) tablet daily. 0 0 07/05/2007 Active Comment on above: Take one(1) tablet d aily. ondansetron 4 mg disintegrating oral tablet (2 sources) Serotonin-3 Receptor Antagonist Start: 09-07-2021 take 4 mg by mouth every six hours Ondansetron Active 4 MG PO EVERY 6 HOURS September 07, 2021 12:26am pantoprazole 40 mg delayed release oral tablet (20 sources) Proton Pump Inhibitor Start: 11-19-2022 End: 05-21-2024 take 1 tablet by mouth once daily pantoprazole DR (PROTONIX) 40 mg tablet Indications: Gastroesophageal reflux disease without esophagitis Take 1 tablet by mouth once daily. 90 tablet 3 05/22/2024 Active Comment on above: Take 1 tablet by dipti th once daily. Take 40 mg by mouth once daily. simvastatin 20 mg oral tablet (20 sources) HMG-CoA Reductase Inhibitor Start: 05-26-2022 take 1 tablet by mouth once daily at bedtime simvastatin (ZOCOR) 20 mg tablet Indications: Hyperlipidemia, unspecified hyperlipidemia type Take 1 tablet by mouth daily at bedtime. 05/26/2022 Active Start: 11-02-2021 take 20 mg by mouth once daily Simvastatin Active 20 MG PO DAILY 90 November 02, 2021 2:52pm Start: 05-22-2018 End: 05-26-2022 take 1 tablet by mouth [...] sources) Phosphodiesterase 5 Inhibitor Start: 11-24-2022 End: 02-19-2024 Tadalafil (CIALIS) 20 mg tablet Indications: ED (erectile dysfunction) of organic origin Take 1 tablet by mouth as needed. Take 30-60 minutes prior to sexual activity 30 tablet 5 08/19/2024 3:19 PM EDT 02/19/2024 Active Start: 01-05-2021 End: 05-26-2022 Tadalafil (CIALIS) 20 mg tab (s) Indications: ED (erectile dysfunction) of organic origin Take 1 tablet by mouth as needed. Take 30-60 minutes prior to sexual activity 30 tablet 3 01/11/2022 05/26/2022 Discontinued (Course of therapy completed) Start: 02-26-2019 take 20 mg by mouth once daily Tadalafil Active 20 MG PO DAILY February 26, 2019 4:00pm Comment on above: Take 1 tablet by dipti th as needed. Take 30-60 minutes prior to sexual activity Completed/Discontinued Medications Medication Drug Class(es) Dates Sig (Normalized) Sig (Original) amoxicillin 500 mg oral capsule (2 sources) Penicillin-class Antibacterial Start: 04-11-19 End: 04-25-19 take 1000 mg by mouth twice daily Amoxicillin Discontinued 1000 MG PO TWICE A DAY 56 April 11, 2017 12:58pm April 25, 2017 1:05am amoxicillin 875 mg / clavulanate 125 mg oral tablet (2 sources) Penicillin-class Antibacterial Start: 06-21-19 15 End: 04-11-19 18 take 875 mg by mouth every twelve hours Amoxicillin-Pot Clavulanate Discontinued 875 MG PO Q12H June 20, 2014 1:53pm April 11, 2017 12:27pm hydroCHLOROthiazide 25 mg oral tablet (8 sources) Thiazide Diuretic Start: 02-27-20 19 End: 06-24-19 take 25 mg by mouth once daily Hydrochlorothiazide Discontinued 25 MG PO DAILY May 16, 2021 11:45am June 23, 2021 12:03pm Start: 02-26-2019 End: 02-26-2019 take 12.5 mg by mouth once daily Hydrochlorothiazide Discontinued 12.5 MG PO DAILY February 26, 2019 4:00pm February 26, 2019 4:16pm Lactobac no.41/Bifidobact no .7 (PROBIOTIC-10 ORAL) (7 sources) End: 05-26-2022 Lactobac no.41/Bifidobact no .7 (PROBIOTIC-10 ORAL) Take by mouth. 0 05/26/2022 Discontinued (Course of therapy completed) Lactobac no.41/B ifidobact no.7 (PROBIOTIC-10 ORAL) Take by mouth. 0 Active Comment on above: Take by mouth. lisinopril 40 mg oral tablet (20 sources) Angiotensin Converting Enzyme Inhibitor Start: 9 End: 9 take 20 mg by mouth once daily Lisinopril Discontinued 20 MG PO DAILY February 26, 2019 3:59pm February 26, 2019 4:16pm Start: 02-26-2019 End: 11-24-2022 take 1 tablet by mouth once daily lisinopril (ZESTRIL) 40 mg tablet Indications: Essential hypertension, benign Take 1 tablet by mouth once daily. 03/26/2019 11/24/2022 Discontinued (Course of therapy completed) Start: 04-11-2017 End: 02-26-2019 take 10 mg by mouth once daily Lisinopril Discontinued 10 MG PO DAILY April 11, 2017 12:28pm February 26, 2019 4:01pm Comment on above: Take 1 tablet by dipti once daily. melatonin 1 mg oral tablet (2 sources) Start: End: take 1 mg by mouth at bedtime Melatonin Discontinued 1 MG PO BEDTIME February 26, 2019 4:01pm September 02, 2019 11:08am naproxen 500 mg oral tablet (2 sources) Nonsteroidal Anti-inflammatory Drug Start: End: take 500 mg by mouth twice daily Naproxen Discontinued 500 MG PO TWICE A DAY June 20, 2014 2:06pm April 11, 2017 12:27pm omeprazole 20 mg delayed release oral capsule [...] Take 20 mg by mouth once daily. predniSONE 5 mg oral tablet (2 sources) Start: End: prednisone 5 mg tablets in a dose pack Discontinued 0 PO per package directions December 28, 2018 8:16am February 26, 2019 4:00pm PO PER PKG DIR traZODone hydrochloride 50 mg oral tablet (13 [...] insomnia triamcinolone acetonide 1 mg/ml topical cream (9 sources) Corticosteroid Start: End: triamcinolone acetonide (KENALOG) 0.1 % cream Indications: Dermatitis Apply 1 application to affected area three times daily. Apply sparingly to area for rash/itching. 28.4 g 1 11/22/2021 05/26/2022 Discontinued (Course of therapy completed) Start: 12-28-2018 End: 02-26-2019 Triamcinolone Acetonide Disc ontinued 1 APPLIC TOPICAL TWICE A DAY December 28, 2018 8:21am February 26, 2019 4:01pm Comment on above: Apply 1 application to affected area three times daily. Apply sparingly to area for rash/itching. Problems Active Problems Problem Classification Problem Date Documented Date Episodic/Chronic Allergic reactions (1 source) Inflammatory dermatosis; Translations: [Dermatitis, unspecified] Episodic Cardiac dysrhythmias (3 sources) Supraventricular tachycardia; Translations: [EKG: accelerated junctional rhythm] Onset: 9 Chronic Chronic kidney disease (20 sources) Chronic kidney disease stage 3B ; Translations: [Stage 3b chronic kidney disease (HCC)] Onset: 0 Chronic Chronic kidney disease (1 source) Chronic kidney disease; Translations: [Stage 3b chronic kidney disease (HCC)] Onset: 0 Conduction disorders (20 sources) Atrioventricular block, first degree; Translations: [First degree atrioventricular block] Onset: 9 06-25-2018 Chronic Coronary atherosclerosis and other heart disease (2 sources) Calcification of coronary artery; Translations: [Atherosclerotic heart disease of [place] coronary artery without angina pectoris] Chronic Deficiency and other anemia (1 source) Anemia in chronic kidney disease; Translations: [Anemia of renal disease] Onset: 5 Chronic Diabetes mellitus with complications (20 sources) Type 2 diabetes mellitus; Translations: [Type 2 diabetes mellitus with diabetic chronic kidney disease] Onset: 4 05-25-2023 Chronic Diabetes mellitus without complication (20 sources) Type 2 diabetes mellitus without complication; Translations: [Type 2 diabetes mellitus without complications] Onset: 6 09-05-2016 Chronic Diabetes mellitus without complication (2 sources) Diabetes mellitus without complication; Translations: [Type 2 diabetes mellitus with stage 3b chronic kidney disease, without long-term current use of insulin ([facility])] Onset: 4 Disorders of lipid metabolism (20 sources) Hyperlipidemia; Translations: [Hyperlipidemia, unspecified] Onset: 7 Chronic Disorders usually diagnosed in infancy, childhood, or adolescence (20 sources) Urinary incontinence of non-organic origin; Translations: [Enuresis not due to a substance or known physiological condition] Onset: 3 08-19-2012 Chronic Esophageal disorders (5 sources) Gastroesophageal reflux disease without esophagitis; Translations: [Gastro-esophageal reflux disease without esophagitis] Onset: 5 05-25-2023 Chronic Essential hypertension (20 sources) Essential hypertension; Translations: [Essential (primary) hypertension] Onset: 6 Chronic Genitourinary congenital anomalies (3 sources) Multiple congenital cysts of kidney; Translations: [Congenital multiple renal cysts] Chronic Hemorrhoids (20 sources) Internal hemorrhoids; Translations: [Other hemorrhoids] 02-23-2006 Episodic Hyperplasia of prostate (20 sources) Benign prostatic hyperplasia; Translations: [Benign prostatic hyperplasia without lower urinary tract symptoms] Onset: 6 09-06-2016 Chronic Immunizations and screening for infectious disease (3 sources) Patient encounter status; Translations: [Encounter for immunization] 02-20-2024 Episodic Malaise and fatigue (2 sources) Fatigue; Translations: [Other fatigue] Episodic Nausea and vomiting (2 sources) Nausea, vomiting and diarrhea; Translations: [Nausea with vomiting, unspecified] Episodic Neoplasms of unspecified nature or uncertain behavior (11 sources) Polyclonal gammopathy; 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] Onset: 5 Chronic Nonspecific chest pain (2 sources) Chest pain; Translations: [Chest pain, unspecified] Episodic Other circulatory disease (2 sources) Labile blood pressure; Translations: [Other specified symptoms and signs involving the circulatory and respiratory systems] Episodic Other diseases of bladder and urethra (20 sources) Bladder neck obstruction; Translations: [Bladder-neck obstruction] Onset: 6 08-21-2005 Chronic Other diseases of kidney and ureters (4 sources) Hyperparathyroidism due to renal insufficiency; Translations: [Secondary hyperparathyroidism of renal origin] Chronic Other diseases of kidney and ureters (20 sources) Nephrocalcinosis; Translations: [Other specified disorders of kidney and ureter] Onset: 3 10-07-2012 Chronic Other diseases of kidney and ureters (2 sources) Disorder of kidney and/or ureter; Translations: [Other specified disorders of kidney and ureter] 02-14-2024 Chronic Other diseases of kidney and ureters (1 source) Secondary hyperparathyroidism of renal origin; Translations: [Secondary renal hyperparathyroidism (HCC)] Onset: 5 Chronic Other diseases of kidney and ureters (1 source) Other specified disorders of kidney and ureter; Translations: [Other specified disorders of kidney and ureter] Onset: 4 Chronic Other diseases of kidney and ureters (1 source) Ruptured cyst of kidney; Translations: [Cyst of kidney, acquired] 05-27-2024 Episodic Other gastrointestinal disorders (2 sources) Diarrhea; Translations: [Diarrhea, unspecified] Episodic Other liver diseases (2 sources) High lipase level in serum; Translations: [Abnormal levels of other serum enzymes] Episodic Other lower respiratory disease (1 source) Cough; Translations: [Acute cough] 09-18-2022 Episodic Other male genital disorders (2 sources) Male erectile dysfunction, unspecified; Translations: [Impotence of organic origin] Onset: 4 Chronic Other male genital disorders (4 sources) Secondary erectile dysfunction; Translations: [Male erectile dysfunction, unspecified] Chronic Other screening for suspected conditions (not mental disorders or infectious disease) (20 sources) Raised prostate specific antigen; Translations: [Elevated prostate specific antigen [PSA]] Onset: 6 08-21-2005 Episodic Other upper respiratory disease (1 source) Seasonal allergy; Translations: [Other seasonal allergic rhinitis] Chronic Pulmonary heart disease (3 sources) Pulmonary embolism; Translations: [Other pulmonary embolism without acute cor pulmonale] Episodic Residual codes; unclassified (1 source) Bilateral lower limb edema; Translations: [Localized edema] Episodic Screening and history of mental health and substance abuse codes (2 sources) Encounter for screening for depression; Translations: [Encounter for screening examination for other mental health and behavioral disorders] Onset: 5 Episodic Skin and subcutaneous tissue infections (2 sources) Cellulitis of unspecified part of limb; Translations: [Cellulitis and abscess of hand] Episodic Syncope (20 sources) Syncope and collapse; Translations: [Syncope and collapse] Onset: 9 06-25-2018 Episodic Past or Other Problems Problem Classification Problem Date Documented Da te Episodic/Chronic Abdominal pain (5 sources) Abdominal pain; Translations: [Unspecified abdominal pain] Onset: 05-31-2024 Episodic Calculus of urinary tract (4 sources) Kidney stone; Translations: [Calculus of kidney] Onset: 02-19-2024 02-19-2024 Episodic Genitourinary symptoms and ill-defined conditions (20 sources) [...] ureter, unspecified] Onset: 08-21-2012 08-21-2012 Episodic Other diseases of kidney and ureters (2 sources) Other obstructive and reflux uropathy; Translations: [BPH with obstruction/lower urinary tract symptoms] Onset: 10-07-2012 Episodic Other diseases of kidney and ureters (3 sources) Cyst of kidney, acquired; Translations: [Renal cyst] Onset: 05-30-2013 Episodic Other upper respiratory infections (1 source) Acute upper respiratory infection, unspecified; Translations: [Viral URI with cough] Onset: 08-04-2024 Episodic Results Test Name Value Interpretation Reference Range Facility Cardiology Visit Reporton Cardiology Visit Report [facility] [address] [place], [place] [address] OFFICE VISIT Date of Service: 02/11/25 MR#: [id number] Acct: [id number] Name: RENETTA PINK Rep #: [id number] : [id number] Provider: PHYLLIS benavides Age/Sex: 84/M [place] [facility] [place] Status: Signed HPI HPI History of Present Illness Details: Renetta Pink 84-year-old man with a history of previous syncope and hypertension. He had presented to the emergency room in May with a syncopal episode.??? He was noted to be in a junctional rhythm with a rate of approximately 108 bpm.??? He was evaluated with an echocardiogram with demonstrated preserved ejection fraction of 65%, a stress test with demonstrated no evidence of ischemia and carotid ultrasound which demonstrated no significant abnormalities.??? He did develop junctional rhythm during his exercise stress test and he was referred to the lubricating specialist.??? The conclusion was that he did not recommend any further cardiac invasive or pacing activities and was felt that this was relatively benign.??? He subsequently ordered a 24-hour Holter monitor which did not demonstrate any significant abnormalities.???He did have a PE in 05/2021, it was felt that this was related to a long drive home. Although there is some concern with protein in his blood and he does see [facility] hematology. He denies chest, arm, jaw, or neck discomfort. He denies palpitations. He denies bilateral lower extremity edema. He denies claudication. He denies shortness of breath with activity, shortness of breath at rest, orthopnea, or PND. He denies chronic cough. He denies significant, sudden weight gain. He denies lightheadedness, dizziness, near-syncope, or syncope. He denies blood in urine, blood in stool, or epistaxis. He denies fever with chills. He denies myalgia. He denies fatigue. His exercise level has remained stable. Intake Vital Signs 01/27/25 13:17 02/11/25 08:05 Height 5 ft 10 in 5 ft 10 in Weight: 192 lb BMI 27.5 BP 135/76 H Blood Pressure Location Lt brachial Position Sitting Respiration 18 Pulse 59 L Pulse Source Monitor Pulse Oximetry (%) 98 Intake Visit Reasons: 1 Y FU L Tacker Required: No Is patient in pain?: No Allergies lisinopril Adverse Reaction (Intermediate, Verified 05/14/24 12:18) Dry persistent cough Medications ???Medication ???Instructions ???Recorded ???Confirmed ???Type pfaiihoc-dx-hbiwl 300 mcg-K 60 1 tab PO DAILY vitamin 04/11/17 History mcg-lycop 600 mcg-lutein 300 mcg tablet (Centrum Silver Men) tadalafil 20 mg tablet 20 mg PO DAILY PRN Erectile 02/11/25 History Dysfunction cholecalciferol (vitamin D3) 50 50 mcg PO DAILY 11/02/21 02/11/25 History mcg (2,000 unit) capsule aspirin 81 mg tablet,delayed 81 mg PO DAILY #90 tabs 03/22/22 1 04/13/24 Rx release (Adult Aspirin Regimen) cetirizine 10 mg tablet 10 mg PO DAILY PRN allergy symptom s 01/24/23 02/11/25 History pantoprazole 40 mg tablet,delayed 40 mg PO DAILY 01/24/23 02/11/25 History release losartan 50 mg tablet 50 mg PO BID #90 tabs 06/17/2408/31 Rx doxazosin 4 mg tablet 4 mg PO QHS #90 tabs 01/23/2508/31 Rx amlodipine 10 mg tablet 10 mg PO DAILY #90 tabs 01/26/25 1 04/13/24 Rx simvastatin 20 mg tablet 20 mg PO QDAY #90 tabs 02/11/25 Rx Have you fallen in the past year?: No PFSH Medical History Cyst of kidney, acquired Pulmonary embolism Essential (primary) hypertension Contact dermatitis First degree AV block Accelerated junctional rhythm Hyperlipidemia Syncope and collapse (05/2018) Bronchitis Sinusitis Diabetes Hx of fever Surgical History Hx of cholecystectomy Family History Mother Diabetes CVA (cerebral vascular accident) Father Diabetes Heart disease Social History Smoking Status: Never smoker alcohol intake: never ROS Const Const: Negative for fatigue, weakness, headache(s) or frequent falls Eyes Eyes: Negative for blurry vision ENT ENT: Negative for headache(s), dizziness or Nosebleed/epistaxis Cardio Chest Pain: No Palpitations: No Edema: None Muscle aches with walking: None Resp Respiratory: Negative for SOB with activity, SOB at rest or SOB orthopnea SOB lying down GI GI: Negative nausea, vomiting, heartburn, bright, red blood in stools or black,tarry stools : Negative for hematuria Musc Musc: Negative for muscle aches/ myalgia Skin Skin: Negative non-healing lesions or rash Neuro Neuro: Negative for dizziness, l (more content not included)... Normal [facility] CNOVon 02-09-2025 CNOV Office Visit (THEA ) -------- DHARMESHRENETTA HUTTON ([id number]) 1940 M Date Time Provider Department 02/09/25 9:00 AM BRISEYDA DELGADO During your visit today, we recorded the following information about you: Respiration Weight Height 12/minute 86.6 kg 1.778 m Briseyda Delgado, CHILDCARE AIDE.INSTALLATION COORDINATOR 02/09/2025 9:24 AM Signed Department of Kidney Medicine Medical Specialties [facility] Recording using [employer] software for draft documentation of the visit was discussed with the patient/authorized community health representative; all questions welcomed and answered. Patient/authorized community health representative agreed to proceed Chief complaint: The patient is an 84-year-old male with CKD, BPH, HTN, DMII, HLD, AV block, nephrolithiasis, and bladder neck obstruction, presenting for nephrology follow-up at the request of his PCP due to worsening renal function. The patient was last seen by Dr. Julio on 08/19/2024. He reports feeling well overall with no urinary symptoms, including no dysuria, no sensation of incomplete bladder emptying, and no nocturia. He typically voids every 5-6 hours and denies chest pain, dyspnea, or lower extremity edema. He drinks 3 cups of caffeinated coffee daily, approximately 16 oz of water per day, and occasionally drinks Diet Coke. He does not take ibuprofen or other NSAIDs, using Tylenol only as needed, though he reports no current pain. He has not checked home blood pressures recently, but recalls prior readings ranging from 120-140 mmHg systolic. He does not check blood glucose at home and maintains a low-carbohydrate diet. He takes amlodipine and doxazosin at night, and losartan twice daily, with the morning dose taken around 0600. He is also on a statin. He underwent TURP in 09/2012 and follows with urology, most recently seen by Dr. Hare in 02/2024, with his next appointment scheduled for 02/16. Recent MRI in 02/2024 showed trace ascites, bladder wall trabeculation, bladder diverticula, and stable bilateral Bosniak I and II simple and hemorrhagic renal cysts (largest 11.1 cm right, 14.6 cm left), with no enhancing renal lesions, no hydronephrosis, and stable mild bilateral adrenal thickening. His baseline creatinine has been approximately 1.5 since 2015, with recent values rising to 1.7 in 12/2024 (eGFR 38, CKD 3B). Most recent A1c in 11/2024 was 6.1. He has a poorly defined M-protein with normal kappa/lambda ratio in 06/2023 and consistently low IgA. He was seen by hematology in 12/2024, who recommended annual follow-up and noted no evidence of kidney issues on 24-hour urine collection. Problem List Reviewed PAST MEDICAL HISTORY Diagnosis Date Benign neoplasm of colon Bronchitis Diabetes mellitus, type 2 (HCC) diet controlled Diverticulosis of small intestine (without mention of hemorrhage) First degree atrioventricular block Hypertensive kidney disease, benign Internal hemorrhoids without mention of complication Pure hypercholesterolemia Sinusitis SVT (supraventricular tachycardia) (HCC) Syncope Current Outpatient Medications Medication Sig cetirizine (ZYRTEC) 10 mg tablet Take 1 tablet by mouth once daily. amLODIPine (NORVASC) 10 mg tablet Take 1 tablet by mouth once daily. losartan (COZAAR) 50 mg tablet Take 1 tablet by mouth two times a day. pantoprazole DR (PROTONIX) 40 mg tablet Take 1 tablet by mouth once daily. Tadalafil (CIALIS) 20 mg tablet Take 1 tablet by mouth as needed. Take 30-60 minutes prior to sexual activity doxazosin (CARDURA) 4 mg tablet Take 1 tablet by mouth daily at bedtime. fluticasone (FLONASE) 50 mcg/actuation nasal spray Use 2 Sprays in each nostril once daily. Rinse mouth after use. simvastatin (ZOCOR) 20 mg tablet Take 1 tablet by mouth daily at bedtime. ergocalciferol, vitamin D2, (VITAMIN D2 ORAL) Take 2 capsules by mouth once daily. Aspirin 81 mg Tab Take 81 mg by mouth once daily. MULTIVITAMIN TAB Take one(1) tablet daily. No current facility-administered medications for this visit. ALLERGIES Allergen Reactions Lisinopril Intolerance Victoriano Cough REVIEW OF SYSTEMS: Constitutional: No fevers, chills, weight loss Cardiovascular: No chest pain, MONTERROSO, SOB, palpitations Respiratory: No cough, hemoptysis Genitourinary: No dysuria, polyuria Neurological: No headaches, seizures, paresthesias Psychiatric: No depression, anxiety PHYSICAL EXAM: BP: Resp 12 Ht 177.8 cm (5' 10") Wt 86.6 kg (191 lb) SpO2 98% BMI 27.41 kg/m? BP - standardized method Pulse 1 BP #1: 141/79 Pulse #1: 61 beats/min 2 BP #2 : 151/71 Pulse #2 : 61 beats/min 3 BP #3 : 148/69 Pulse #3 : 61 beats/min Average Average BP: 146/73 Average Pulse: 61 beats/min Orthostatic vitals Supine Sitting Standing BP cuff location BP cuff location: Right upper arm BP cuff size BP cuff size: regular adult Comments for BP values (more content not included)... Normal [facility] 01-08-2025 [facility] Telephone (HEMYANIV) -------- RENETTA PINK ([id number]) 1940 M Date Time Provider Department 01/08/25 GARY KELLY During your visit today, we recorded the following information about you: Gary Kelly DO 01/08/2025 1:41 PM Signed Can let him know that the 24-hour urine collection did not suggest any kidney issue from the reason I see him. Okay to follow-up in a year as scheduled. Continue follow-up with kidney doctor as scheduled. DO Brennan Barahona Kara, LPN 01/08/2025 2:10 PM Signed Left message to return call to office to review results. MAX Nolasco Pamela S, FIRST AID DIRECTOR 01/09/2025 8:40 AM Signed Spoke with pt, given results of urine test, F/U in 1 year as directed. Voiced understanding. Ninfa Lunsford MAX Bryson Allergies As of Date: 01/08/2025 Noted Allergy Reaction LISINOPRIL 11/24/2022 5 - Intolerance Comments: Victoriano Cough Date Reviewed: 12/22/2024 Reviewed by: Gary Kelly DO - Fully Assessed Reason for Visit: Results [95] Prescriptions as of 01/09/2025 - cetirizine (ZYRTEC) 10 mg tablet Take 1 tablet by mouth once daily. - amLODIPine (NORVASC) 10 mg tablet Take 1 tablet by mouth once daily. - losartan (COZAAR) 50 mg tablet Take 1 tablet by mouth two times a day. - pantoprazole DR (PROTONIX) 40 mg tablet Take 1 tablet by mouth once daily. - Tadalafil (CIALIS) 20 mg tablet Take 1 tablet by mouth as needed. Take 30-60 minutes prior to sexual activity - doxazosin (CARDURA) 4 mg tablet Take 1 tablet by mouth daily at bedtime. - fluticasone (FLONASE) 50 mcg/actuation nasal spray [...] tablet daily. Problem List As Of Date 01/08/2025 Noted Resolved BLADDER NECK OBSTRUCTION [N32.0] 08/21/2005 [...] k*05/25/2023 Encounter Status:Closed by NINFA BRYSON on 01/09/25 Normal [facility] MONOCLONAL PROT 24 UR W/INTE RPon 01-01-2025 INTERPRETATION (UMPA) Poorly defined region of restricted mobility in IgG and kappa lanes. Pattern is less well defined or fainter than typically seen in monoclonal gammopathy. This could represent either an atypical presentation of polyclonal immunoglobulins or the presence of a low level IgG kappa monoclonal gammopathy. If clinically indicated, serum monoclonal protein analysis and serum free light chain measurements are recommended to evaluate further for monoclonal gammopathy. Clinical correlation is necessary. Normal [facility] Comment on above: Order Comment: Speci men Type: URINE SPECIMENOrdering Facility: [facility] Address: [address] [place] [address] Performed By: #### U 24MPA ####[facility] LABIA [id number] [address] [place] STAFF REVIEW (UMPA) Reviewed by Maryellen Griffin MD Normal [facility] Comment on above: Order Comment: Speci men Type: URINE SPECIMENOrdering Facility: [facility] Address: [address] [place] [address] Performed By: #### U 24MPA ####[facility] LABCLIA [id number] [place] [id number] [place] UMPA RESULT A poorly defined reg ion of restricted mobility is present that may represent an M protein. Abnormal No M protein is identified. [facility] Comment on above: Order Comment: Speci men Type: URINE SPECIMENOrdering Facility: [facility] Address: [address] [place] [address] Performed By: #### U 24MPA ####[facility] LABCLIA [id number] [place] [address] [place] PROT ELEC UR 24HR W/M SPIKE (P)on 01-01-2025 Albumin/Globulin Elph (24H U) [Mass ratio] 70.15 % Normal [facility] Comment on above: Order Comment: Speci men Type: BLOOD SPECIMEN [facility] Address: [address] [place] [address] Performed By: #### 5 7021-8 #### [facility] [id number] [address] [place] [address] [place] Alpha 1 globulin Elph (24H U) [Mass fraction] 3.37 % Normal [facility] Comment on above: Order Comment: Speci men Type: BLOOD SPECIMEN [facility] Address: [address] [place] [address] Performed By: #### 5 7021-8 #### [facility] [id number] [address] [place] [address] [place] Alpha 2 globulin Elph (24H U) [Mass fraction] 8.05 % Normal [facility] Comment on above: Order Comment: Speci men Type: BLOOD SPECIMEN [facility] Address: [address] [place] [address] Performed By: #### 5 7021-8 #### [facility] [id number] [address] [place] [address] [place] Beta globulin Elph (24H U) [Mass fraction] 12.30 % Normal [facility] Comment on above: Order Comment: Speci men Type: BLOOD SPECIMEN [facility] Address: [address] [place] [address] Performed By: #### 5 7021-8 #### [facility] CLIA [id number] [address] [place] [address] [place] Gamma globulin Elph (24H U) [Mass fraction] 6.12 % Normal [facility] Comment on above: Order Comment: Abdi james Type: BLOOD SPECIMEN [facility] Address: [address] [place] [address] Performed By: #### 5 7021-8 #### [facility] [id number] [address] [place] [address] OF [place] INTERPRETATION COMMENT FOR PROTEIN ELECTROPHORESIS The atypical region is relatively poorly defined and may represent an unusual presentation of polyclonal immunoglobulins, but cannot rule out the presence of a low level M protein. If clinically indicated, monoclonal protein analysis and serum free light chain analysis are suggested to evaluate further for monoclonal gammopathy. Normal [facility] Comment on above: Order Comment: Abdi james Type: BLOOD SPECIMEN [facility] Address: [address] [place] [address] Performed By: #### 5 7021-8 #### [facility] [id number] [address] [place] [address] Protein Fractions Elph Luis Manuel (24H U) [Interp] An atypical region of restricted mobility is identified on protein electrophoresis. Abnormal No definitive M protein is identified on protein electrophoresi s. [facility] Comment on above: Order Comment: Abdi james Type: BLOOD SPECIMEN [facility] Facility[facility] Address: [address] [place] [address] Performed By: #### 5 7021-8 #### [facility] [id number] [address] [place] [address] Protein.monoclonal Elph (24H U) [Mass/Time] 0.00 g/24hr Normal [facility] Comment on above: Order Comment: Abdi james Type: BLOOD SPECIMEN [facility] Address: [address] [place] [address] Performed By: #### 5 7021-8 #### [facility] CLIA [id number] [address] [place] [address] STAFF REVIEW ([id number]) Reviewed by Maryellen Griffin MD Normal [facility] Comment on above: Order Comment: Speci men Type: BLOOD SPECIMEN [facility] Address: [address] [place] [address] Performed By: #### 5 7021-8 #### [facility] CLIA [id number] [address] [place] [address] [place] Prot 24h Ur-mRateon 01-02-20 Protein (24H U) [Mass/Time] 0.11 g/24 Hr Normal <0.15 [facility] Comment on above: Order Comment: Speci men Type: BLOOD SPECIMEN [facility] Address: [address] [place] [address] Result Comment: Adul t Proteinuria Categories: <0.15 g/24 hours is considered normal to mildly increased 0.15 - 0.50 g/24 hours is considered moderately increased >0.50 g/24 hours is considered severely increased KDIGO. (2013). KDIGO 2012 Clinical Practice Guideline for the Evaluation and Management of Chronic Kidney Disease. Official Journal of the International Society of Nephrology, 3(1), 1-150. Performed By: #### 5 7021-8 #### [facility] CLIA [id number] [address] [place] [address] [place] Protein (24H U) [Mass/Time]o n 01-01-2025 PERIOD (HRS) 24 hr Normal [facility] Comment on above: Order Comment: Speci men Type: BLOOD SPECIMEN [facility] Address: [address] [place], [place] [address] Performed By: #### 5 7021-8 #### [facility] CLIA [id number] [address] [place] [address] [place] Specimen volume (24H U) 1.85 L Normal [facility] Comment on above: Order Comment: Speci men Type: BLOOD SPECIMEN [facility] Address: [address] [place] [address] Performed By: #### 5 7021-8 #### [facility] CLIA [id number] [address] OF [facility] CNOVSPon 12-22-2024 CNOVSP Visit (SP) Office (HEMAWS) -------- RENETTA PINK ([id number]) 1940 M Date Time Provider Department 12/22/24 2:30 PM GARY KELLY During your visit today, we recorded the following information about you: Temperature Pulse Blood pressure Weight 97.8 degrees 68/minute 135/75 87.1 kg Height 1.78 m Gary Kelly DO 12/22/2024 2:57 PM Signed HPI: The patient is a 84-year-old male with a past medical history significant for hypertension, hyperlipidemia, first-degree AV block, colon polyps, BPH, CKD stage III, type 2 diabetes, 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 No MS pain. No symptoms of sensory neuropathy. Presents for ongoing hematologic management. Interim history: No complaints. No acute illnesses since last seen. PAST MEDICAL HISTORY Diagnosis Date Benign neoplasm [...] Take 1 tablet by mouth once daily. amLODIPine (NORVASC) 10 mg tablet Take 1 tablet by mouth once daily. losartan (COZAAR) 50 mg tablet Take 1 tablet by mouth two times a day. pantoprazole DR (PROTONIX) 40 mg tablet Take 1 tablet by mouth once daily. Tadalafil (CIALIS) 20 mg tablet Take 1 tablet by mouth as needed. Take 30-60 minutes prior to sexual activity doxazosin (CARDURA) 4 mg tablet Take 1 tablet by mouth daily at bedtime. fluticasone (FLONASE) 50 mcg/actuation nasal spray Use 2 Sprays in each nostril once daily. Rinse mouth after use. simvastatin (ZOCOR) 20 mg tablet Take 1 [...] Never Used Substance Use Topics Alcohol use: Not Currently Drug use: No Family History Problem Relation [...] Never Used Substance Use Topics Alcohol use: Not Currently Drug use: No Family History Problem Relation Age of Onset Stroke Mother dm Hypertension Mother Diabetes Mother Heart disease Mother Heart Father dm Heart disease Father Diabetes Father Diabetes Sister Diabetes Sister Heart Brother dm Diabetes Brother other (brain cancer) Brother dm PHYSICAL EXAM: Vitals: Blood pressure 135/75, pulse 68, temperature 36.6 ?C (97.8 ?F), temperature source Temporal, height 178 cm (5' 10.08"), weight 87.1 kg (192 lb), SpO2 99%. Well-appearing and in no acute distress. EYES: Sclerae are anicteric bilaterally. LYMPHATIC: There is no palpable cervical, supraclavicular adenopathy. RESPIRATORY: Inspiratory breath sounds are of normal intensity in all hidalgo. No rales, wheezes or (more content not included)... Normal [facility] B2 Microglob SerPl-mCncon Xyfc-8-Uyapmqrzlezi n [Mass/Vol] 3.5 ug/mL High <3.1 [facility] Comment on above: Order Comment: Speci men Type: BLOOD SPECIMENOrdering Facility: [facility] Address: [address] [place] [address] Result Comment: Beta -2 Microglobulin test is performed using the [employer] immunoturbidimetric method. Results obtained with different methods or kits cannot be used interchangeably. Performed By: #### 2 885-2, 1952-1, 37414-2, 2532-0 ####[facility] LABCLIA [id number] [place] [address] [place] CBC W Auto Differential pane l (Bld)on 12-15-2024 Basophils (Bld) [#/Vol] 10*3/uL Normal <0.11 [facility] Comment on above: Order Comment: Speci men Type: BLOOD SPECIMEN [facility] Address: [address] [place] [address] Performed By: #### 5 7021-8 #### [facility] CLIA [id number] [address] [place] [address] [place] Basophils/100 WBC (Bld) 0.4 % Normal [facility] Comment on above: Order Comment: Speci men Type: BLOOD SPECIMEN [facility] Address: [address] [place] [address] Performed By: #### 5 7021-8 #### [facility] CLIA [id number] [address] [place] [address] [place] Differential cell count method Nom (Bld) Auto Normal [facility] Comment on above: Order Comment: Speci men Type: BLOOD SPECIMEN [facility] Address: [address] [place] [address] Performed By: #### 5 7021-8 #### [facility] CLIA [id number] [address] [place] [address] [place] Eosinophils (Bld) [#/Vol] 0.22 10*3/uL Normal <0.46 [facility] Comment on above: Order Comment: Speci men Type: BLOOD SPECIMEN [facility] Address: [address] [place] [address] Performed By: #### 5 7021-8 #### [facility] CLIA [id number] [address] [place] [address] [place] Eosinophils/100 WBC (Bld) 4.8 % Normal [facility] Comment on above: Order Comment: Speci men Type: BLOOD SPECIMEN [facility] Address: [address] [place] [address] Performed By: #### 5 7021-8 #### [facility] CLIA [id number] [address] [place] [address] [place] Erythrocyte distribution width (RBC) [Ratio] 13.7 % Normal 11.5-15.0 [facility] Comment on above: Order Comment: Speci men Type: BLOOD SPECIMEN [facility] Address: [address] [place] [address] Performed By: #### 5 7021-8 #### [facility] CLIA [id number] [address] [place] [address] [place] Hematocrit (Bld) [Volume fraction] 43.5 % Normal 39.0-51.0 [facility] Comment on above: Order Comment: Speci men Type: BLOOD SPECIMEN [facility] Address: [address] [place] [address] Performed By: #### 5 7021-8 #### [facility] [id number] [address] [place] [address] [place] Hemoglobin (Bld) [Mass/Vol] 14.3 g/dL Normal 13.0-17.0 [facility] Comment on above: Order Comment: Speci men Type: BLOOD SPECIMEN [facility] Address: [address] [place] [address] Performed By: #### 5 7021-8 #### [facility] [id number] [address] [place] [address] [place] Immature granulocytes (Bld) [#/Vol] 10*3/uL Normal <0.10 [facility] Comment on above: Order Comment: Speci men Type: BLOOD SPECIMEN [facility] Address: [address] [place] [address] Performed By: #### 5 7021-8 #### [facility] CLIA [id number] [address] [place] [address] [place] Immature granulocytes/100 WBC (Bld) 0.2 % Normal [facility] Comment on above: Order Comment: Speci men Type: BLOOD SPECIMEN [facility] Address: [facility] [place] [address] Performed By: #### 5 7021-8 #### [facility] CLIA [id number] [address] [place] [address] [place] Lymphocytes (Bld) [#/Vol] 0.99 10*3/uL Low 1.00-4.00 [facility] Comment on above: Order Comment: Speci men Type: BLOOD SPECIMEN [facility] Address: [address] [place] [address] Performed By: #### 5 7021-8 #### [facility] CLIA [id number] [address] [place] [address] [place] Lymphocytes/100 WBC (Bld) 21.6 % Normal [facility] Comment on above: Order Comment: Speci men Type: BLOOD SPECIMEN [facility] Address: [address] [place] [address] Performed By: #### 5 7021-8 #### [facility] CLIA [id number] [address] [place] [address] [place] MCH (RBC) [Entitic mass] 28.5 pg Normal 26.0-34.0 [facility] Comment on above: Order Comment: Speci men Type: BLOOD SPECIMEN [facility] Address: [address] [place] [address] Performed By: #### 5 7021-8 #### [facility] CLIA [id number] [address] [place] [address] [place] MCHC (RBC) [Mass/Vol] 32.9 g/dL Normal 30.5-36.0 [facility] Comment on above: Order Comment: Speci men Type: BLOOD SPECIMEN [facility] Address: [address] [place] [address] Performed By: #### 5 7021-8 #### [facility] CLIA [id number] [address] [place] [address] [place] MCV (RBC) [Entitic vol] 86.8 fL Normal 80.0-100.0 [facility] Comment on above: Order Comment: Speci men Type: BLOOD SPECIMEN Ordering Facility: [facility] Address: [address] [place] [address] Performed By: #### 5 7021-8 #### [facility] CLIA [id number] [address] [place] [address] [place] Monocytes (Bld) [#/Vol] 0.40 10*3/uL Normal <0.87 [facility] Comment on above: Order Comment: Speci men Type: BLOOD SPECIMEN Ordering Facility: [facility] Address: [address] [place] [address] Performed By: #### 5 7021-8 #### [facility] CLIA [id number] [address] [place] [address] [place] Monocytes/100 WBC (Bld) 8.7 % Normal [facility] Comment on above: Order Comment: Speci men Type: BLOOD SPECIMEN Ordering Facility: [facility] Address: [address] [place] [address] Performed By: #### 5 7021-8 #### [facility] CLIA [id number] [address] [place] [address] [place] Neutrophils (Bld) [#/Vol] 2.95 10*3/uL Normal 1.45-7.50 [facility] Comment on above: Order Comment: Speci men Type: BLOOD SPECIMEN Ordering Facility: [facility] Address: [address] [place] [address] Performed By: #### 5 7021-8 #### [facility] CLIA [id number] [address] [place] [address] [place] Neutrophils/100 WBC (Bld) 64.3 % Normal [facility] Comment on above: Order Comment: Speci men Type: BLOOD SPECIMEN Ordering Facility: [facility] Address: [address] [place] [address] Performed By: #### 5 7021-8 #### [facility] CLIA [id number] [address] [place] [address] [place] Nucleated RBC (Bld) [#/Vol] 10*3/uL Normal <0.01 [facility] Comment on above: Order Comment: Speci men Type: BLOOD SPECIMEN Ordering Facility: [facility] Address: [address] [place] [address] Performed By: #### 5 7021-8 #### [facility] CLIA [id number] [address] [place] [address] [place] Nucleated RBC/100 WBC (Bld) [Ratio] 0.0 /100 WBC Normal [facility] Comment on above: Order Comment: Speci men Type: BLOOD SPECIMEN Ordering Facility: [facility] Address: [address] [place] [address] Performed By: #### 5 7021-8 #### [facility] CLIA [id number] [address] [place] [address] [place] Platelet mean volume (Bld) [Entitic vol] 10.4 fL Normal 9.0-12.7 [facility] Comment on above: Order Comment: Speci men Type: BLOOD SPECIMEN Ordering Facility: [facility] Address: [address] [place] [address] Performed By: #### 5 7021-8 #### [facility] CLIA [id number] [address] [place] [address] [place] Platelets (Bld) [#/Vol] 166 10*3/uL Normal 150-400 [facility] Comment on above: Order Comment: Speci men Type: BLOOD SPECIMEN [facility]ing Facility: [facility] Address: [address] [place], [place] [address] Performed By: #### 5 7021-8 #### [id number] [address] [place] [address] [place] RBC (Bld) [#/Vol] 5.01 10*6/uL Normal 4.20-6.00 [facility] Comment on above: Order Comment: Speci men Type: BLOOD SPECIMEN Ordering Facility: [facility] Address: [address] [place] [address] Performed By: #### 5 7021-8 #### [facility] [id number] [address] [place] [address] [place] WBC (Bld) [#/Vol] 4.59 10*3/uL Normal 3.70-11.00 [facility] Comment on above: Order Comment: Speci men Type: BLOOD SPECIMEN [facility]ing Facility: [facility] Address: [address] [place] [address] Performed By: #### 5 7021-8 #### [facility] [id number] [address] [place] [address] [place] Comprehensive metabolic 2000 panelon 12-15-2024 Albumin [Mass/Vol] 4.5 g/dL Normal 3.9-4.9 [facility] Comment on above: Order Comment: Speci men Type: BLOOD SPECIMENOrdering Facility: [facility] Address: [address] [place] [address] Performed By: #### 2 885-2, 1952-1, 04977-8, 2532-0 ####[facility] LABCLIA [id number] [place] [address] [place] ALP [Catalytic activity/Vol] 50 U/L Normal 38-113 [facility] Comment on above: Order Comment: Speci men Type: BLOOD SPECIMENOrdering Facility: [facility] Address: [address] [place] [id number] Performed By: #### 2 885-2, 1952-04, 86113-5, 2531-0 ####[facility] LABCLIA [id number] [place] [id number] [place] ALT [Catalytic activity/Vol] 16 U/L Normal 10-54 [facility] Comment on above: Order Comment: Speci men Type: BLOOD SPECIMENOrdering Facility: [facility] Address: [address] [place] [address] Performed By: #### 2 885-2, 1952-04, 56771-9, 2531-0 ####[facility] LABIA [id number] [place] [address] [place] Anion gap [Moles/Vol] 7 mmol/L Low 8-15 [facility] Comment on above: Order Comment: Speci men Type: BLOOD SPECIMENOrdering Facility: [facility] Address: [address] [place] [address] Performed By: #### 2 885-2, 1951-04, , 2531-0 ####[facility] LABIA [id number] [place] [address] [place] AST [Catalytic activity/Vol] 19 U/L Normal 14-40 [facility] Comment on above: Order Comment: Speci men Type: BLOOD SPECIMENOrdering Facility: [facility] Address: [address] [place] [address] Performed By: #### 2 885-2, 1952-04, , 2531-0 ####[facility] LABIA [id number] [place] [address] [place] Bilirubin [Mass/Vol] 0.7 mg/dL Normal 0.2-1.3 [facility] Comment on above: Order Comment: Speci men Type: BLOOD SPECIMENOrdering Facility: [facility] Address: [address] [place] [address] Performed By: #### 2 885-2, 1952-04, , 2531-0 ####[facility] LABIA [id number] [address] [address] [place] Calcium [Mass/Vol] 9.8 mg/dL Normal 8.5-10.2 [facility] Comment on above: Order Comment: Speci men Type: BLOOD SPECIMENOrdering Facility: [facility] Address: [address] [place] [address] Performed By: #### 2 885-2, 1951-04, , 2531-0 ####[facility] LABIA [id number] [place] [address] [place] Chloride [Moles/Vol] 108 mmol/L High 98-107 [facility] Comment on above: Order Comment: Speci men Type: BLOOD SPECIMENOrdering Facility: [facility] Address: [address] [place] [address] Performed By: #### 2 885-2, 1951-04, , 2531-0 ####[facility] LABIA [id number] [place] [address] [place] CO2 [Moles/Vol] 25 mmol/L Normal 22-30 [facility] Comment on above: Order Comment: Speci men Type: BLOOD SPECIMENOrdering Facility: [facility] Address: [address] [place] [address] Performed By: #### 2 885-2, 1952-04, , 2531-0 ####[facility] LABIA [id number] [place] [address] [place] Creatinine [Mass/Vol] 1.72 mg/dL High 0.73-1.22 [facility] Comment on above: Order Comment: Speci men Type: BLOOD SPECIMENOrdering Facility: [facility] Address: [address] [place] [address] Performed By: #### 2 885-2, 1952-04, 91536-4, 0 ####[facility] LABIA [id number] [place] [id number] [place] eGFRcr SerPlBld CKD-EPI 2020 38 mL/min/1.73m??? Low >=60 [facility] Comment on above: Order Comment: Abdi james Type: BLOOD SPECIMENOrdering Facility: [facility] Address: [address] [place] [address] Result Comment: Yuli mated Glomerular Filtration Rate [...] reflect actual GFR. Performed By: #### 2 885-2, 1952-04, , 0 ####[facility] LABIA [id number] [place] [id number] [place] Glucose [Mass/Vol] 134 mg/dL High 74-99 [facility] Comment on above: Order Comment: Abdi james Type: BLOOD SPECIMENOrdering Facility: [facility] Address: [address] [place] [address] Result Comment: The [place] [employer] (ADA) provides guidance for cutoff [...] Standards of Medical Care in Diabetes 2016, [place] [employer]. Diabetes Care. 2016.39(Suppl 1). Performed By: #### 2 885-2, 1952-04, 39959-2, 2531-0 ####[facility] LABIA [id number] [address] [address] [place] Potassium [Moles/Vol] 4.4 mmol/L Normal 3.7-5.1 [facility] Comment on above: Order Comment: Speci men Type: BLOOD SPECIMENOrdering Facility: [facility] Address: [address] [place] [address] Performed By: #### 2 885-2, 1952-04, 58292-0, 2531-0 ####[facility] [id number] [address] [address] [place] Sodium [Moles/Vol] 140 mmol/L Normal 136-144 [facility] Comment on above: Order Comment: Speci men Type: BLOOD SPECIMENOrdering Facility: [facility] Address: [address] [place] [address] Performed By: #### 2 885-2, 1951-04, , 2531-0 ####[facility] [id number] [address] [address] [place] Urea nitrogen [Mass/Vol] 38 mg/dL High 9-24 [facility] Comment on above: Order Comment: Speci men Type: BLOOD SPECIMENOrdering Facility: [facility] Address: [address] [place] [address] Performed By: #### 2 885-2, 1951-04, , 2531-0 ####[facility] [id number] [address] [address] [place] IMMUNOFIXATION SCREEN, SERUM on 12-15-2024 INTERPRETATION (MPA) Atypical restricted bands are present in the IgG and kappa regions. Consistent with IgG kappa monoclonal gammopathy. Normal [facility] Comment on above: Order Comment: Speci men Type: BLOOD SPECIMENOrdering Facility: [facility] Address: [address] [place] [address] Performed By: #### I FES ####[facility] LABCLIA [id number] [address] STATES [facility] MPA RESULT M protein is present. Abnormal No M p rotein is identified. [facility] Comment on above: Order Comment: Speci men Type: BLOOD SPECIMENOrdering Facility: [facility] Address: [address] [place] [address] Performed By: #### I FES ####[facility] LABCLIA [id number] [address] OF [facility] STAFF REVIEW (MPA) Reviewed by Maryellen Griffin MD [facility] Comment on above: Order Comment: Speci men Type: BLOOD SPECIMENOrdering Facility: [facility] Address: [address] [place] [address] Performed By: #### I FES ####[facility] LABIA [id number] [address], [facility]95 [place] IMMUNOGLOBULINS,IGG,IGA,IGMo n 12-15-2024 IgA [Mass/Vol] 143 mg/dL Normal 70-400 [facility] Comment on above: Order Comment: Speci men Type: BLOOD SPECIMENOrdering Facility: [facility] Address: [address] [place] [address] Performed By: #### S ERIMM ####[facility] LABCLIA [id number] [address] [place] [address] [place] IgG [Mass/Vol] 1483 mg/dL Normal 700-1600 [facility] Comment on above: Order Comment: Speci men Type: BLOOD SPECIMENOrdering Facility: [facility] Address: [address] [place] [address] Performed By: #### S ERIMM ####[facility] LABIA [id number] [place] [id number] [place] IgM [Mass/Vol] 21 mg/dL Low 40-230 [facility] Comment on above: Order Comment: Speci men Type: BLOOD SPECIMENOrdering Facility: [facility] Address: [address] [place] [address] Performed By: #### S BRIAN ####[facility] LABCLIA [id number] [place] [address] [place] KAPPA/CHRISTIE,FREE,SERon 2024 Immunoglobulin light chains.kappa.free (S) [Mass/Vol] 29.1 mg/L High 3.3-19.4 [facility] Comment on above: Order Comment: Speci men Type: BLOOD SPECIMEN [facility]ing Facility: [facility] Address: [address] [place] [address] Result Comment: Rare ly, increased serum free light chains levels may not be detected or accurately quantified due to prozone phenomenon or in high viscosity samples using this immunoturbidimetric assay. Correlation with other laboratory results and clinical findings is recommended. The [place] Free Light Chain was performed using the Binding Site Optilite immunoturbidimetric method. Result obtained with different assay methods or kits cannot be used interchangeably. Performed By: #### 5 7021-8 #### [facility] CLIA [id number] [address] [place] [address] [place] Immunoglobulin light chains.kappa/Immuno globulin light chains.lambda (S) [Mass ratio] 0.85 Normal 0.26-1.65 [facility] Comment on above: Order Comment: Speci men Type: BLOOD SPECIMEN [facility]ing Facility: [facility] Address: [address] [place] [address] Performed By: #### 5 7021-8 #### [facility] CLIA [id number] [address] [place] [address] [place] Immunoglobulin light chains.lambda.free [Mass/Vol] 34.1 mg/L High 5.7-26.3 [facility] Comment on above: Order Comment: Speci men Type: BLOOD SPECIMEN Ordering Facility: [facility] Address: [address] [place] [address] Result Comment: Rare ly, increased serum free [...] cannot be used interchangeably. Performed By: #### 5 7021-8 #### [facility] CLIA [id number] [address] [place] [address] [place] LDH SerPl-cCncon 12-15-2024 LDH [Catalytic activity/Vol] 161 U/L Normal 135-225 [facility] Comment on above: Order Comment: Speci men Type: BLOOD SPECIMENOrdering Facility: [facility] Address: [address] [place] [address] Performed By: #### 2 885-2, 1952-1, 75965-2, 2532-0 ####[facility] LABCLIA [id number] [place] [address] [place] PROTEIN ELECTROPHORESIS SERU M (P)on 12-15-2024 Albumin [Mass/Vol] 4.47 g/dL Normal 3.43-5.41 [facility] Comment on above: Order Comment: Speci men Type: BLOOD SPECIMENOrdering Facility: [facility] Address: [address] [place] [address] Performed By: #### L [id number] ####[facility] LABCLIA [id number] [place] [id number] [place] Alpha 1 globulin Elph [Mass/Vol] 0.21 g/dL Normal 0.18-0.43 [facility] Comment on above: Order Comment: Speci men Type: BLOOD SPECIMENOrdering Facility: [facility] Address: [address] [place] [address] Performed By: #### L [id number] ####[facility] LABIA [id number] [address] [address] [place] Alpha 2 globulin Elph [Mass/Vol] 0.67 g/dL Normal 0.42-0.98 [facility] Comment on above: Order Comment: Speci men Type: BLOOD SPECIMENOrdering Facility: [facility] Address: [address] [place] [address] Performed By: #### L [id number] ####[facility] LABIA [id number] [place] [id number] [place] Beta globulin Elph [Mass/Vol] 0.68 g/dL Normal 0.61-1.17 [facility] Comment on above: Order Comment: Speci men Type: BLOOD SPECIMENOrdering Facility: [facility] Address: [address] [place] [address] Performed By: #### L [id number] ####[facility] [id number] [place] [address] [place] Gamma globulin Elph [Mass/Vol] 1.28 g/dL Normal 0.53-1.51 [facility] Comment on above: Order Comment: Speci men Type: BLOOD SPECIMENOrdering Facility: [facility] Address: [address] [place] [address] Performed By: #### L [id number] ####[facility] LABIA [id number] [place] [id number] [place] INTERPRETATION COMMENT FOR PROTEIN ELECTROPHORESIS See separate immunofixation report for characterization of monoclonal gammopathy. Normal [facility] Comment on above: Order Comment: Speci men Type: BLOOD SPECIMENOrdering Facility: [facility] Address: [address] [place] [address] Performed By: #### L [id number] ####[facility] LABIA [id number] [place] [id number] [place] M-PROTEIN LOCATION Gamma Fraction 1 Normal [facility] Comment on above: Order Comment: Speci men Type: BLOOD SPECIMENOrdering Facility: [facility] Address: [address] [place] [address] Performed By: #### L [id number] ####[facility] LABCLIA [id number] [address] [place] [address] [place] Protein Fractions [Interp] An M protein is identified on protein electrophoresis. Abnormal No definitive M protein is identified on protein electrophoresi s. [facility] Comment on above: Order Comment: Speci men Type: BLOOD SPECIMENOrdering Facility: [facility] Address: [address] [place] [address] Performed By: #### L [id number] ####[facility] LABIA [id number] [place] [address] [place] Protein.monoclonal Elph [Mass/Vol] 0.61 g/dL High <=0.00 [facility] Comment on above: Order Comment: Speci men Type: BLOOD SPECIMENOrdering Facility: [facility] Address: [address] [place] [address] Performed By: #### L [id number] ####[facility] [id number] [place] [address] [place] SPE STAFF REVIEW Reviewed by Lashonda Amezcua M.D., Ph.D Normal [facility] Comment on above: Order Comment: Speci men Type: BLOOD SPECIMENOrdering Facility: [facility] Address: [address] [place] [address] Performed By: #### L [id number] ####[facility] LABIA [id number] [place] [id number] [place] Prot SerPl-mCncon 12-15-2024 Protein [Mass/Vol] 7.3 g/dL Normal 6.3-8.0 [facility] Comment on above: Order Comment: Speci men Type: BLOOD SPECIMENOrdering Facility: [facility] Address: [address] [place] [address] Performed By: #### 2 885-2, 1952-1, 70648-4, 2532-0 ####[facility] ALEYDA [id number] [place] [address] [place] CNOVon 12-01-2024 CNOV Office Visit (FAMPWS ) -------- RENETTA PINK ([id number]) 1940 M Date Time Provider Department 12/01/24 1:20 PM [facility] your visit today, we recorded the following information about you: Pulse Blood pressure 73/minute 124/71 Rafael Ramirez APRN.CNP 12/01/2024 1:28 PM Signed Renetta Pink is a 83 year old male here for a Medicare wellness visit. Medicare Health Risk Assessment General Health Very good Exercise: Minutes/Day 30 min Exercise: Days/Week 7 days Alcohol: Daily Use 2-3 times a week Alcohol: Drinks/Day 1 or 2 Alcohol: 6 or more drinks Never Feel off balance No Concerns: Teeth/Dentures No Concerns: Sexual function No Troubled by feelings None of the above Frequency: Eating healthy diet Nearly every day ADLs requiring help None of the above Safety precautions in home/vehicle Yes Smoke, vape, chews tobacco No Difficulty hearing No Difficulty seeing No Current Providers Specialists: I have reviewed specialist-related care of the patient in the medical record. Current care team: Patient Care Team: Jenae Savage MD as PCP - General (Family Medicine) Ralph Garcia MD as Specialty Network Systems Engineer (Cardiology) Juan Manuel Alvarado MD as Specialty Network Systems Engineer (Cardiology) Janusz Davenport MD (Urology) Ángel Julio DO (Nephrology) Rafael Ramirez APRN.CNP as Leasing Agent (Family Medicine) Outside specialists seen: Cardio-Dr. Garcia, Dr. Fish-Eye, Nephrology, Urology, Dentist, Dr. Fish-Derm Medical/Family history review Reviewed and updated problem list, medical/surgical/family/ social history, medications, and allergies. Opioid use review Opioid Medications (last 90 days) No data to display Anxiety/Depression screening PHQ-2 Score: 0 (Lower risk for depression) KURTIS-2 Score: 0 (Lower risk for anxiety) Recommendation: no further intervention at this time Cognitive screening Mini Cog Score: 4 Cognitive screening reviewed and Recommended referral for further evaluation (score 0-2). Functional Observation Was the patient's Timed Up AND Go test unsteady or >= 12 seconds? No Advance Care Planning Surrogate decision maker and/or advance care plan documented Measurements BP 124/71 Pulse 73 SpO2 98% Vision Screening: Follows with optometry/ophthalmology Assessment/Plan Medicare annual wellness visit, subsequent (Z00.00) - Counseled on healthy diet and regular exercise - Fall avoidance information provided - Personalized prevention plan provided Rafael Ramirez APRN.INSTALLATION COORDINATOR Additional Concerns The following concerns were also discussed with the patient: Renetta Pink is a 83-year-old male with a history of CKD, presenting for follow-up on recent lab results. Renetta recently had lab work done, which showed a hemoglobin A1c of 6.1%, LDL of 74 mg/dL, glucose of 124 mg/dL, BUN decreased to within normal limits, and creatinine increased from 1.51 to 1.71 mg/dL over the past year. GFR also decreased to below 40 mL/min/1.73m? for the first time. He denies any recent illnesses, changes in medications, or increased use of ibuprofen. He is currently taking Tylenol, losartan 50 mg, simvastatin, doxazosin at night, amlodipine, and aspirin. He denies taking any new supplements outside of his normal multivitamins. 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 He denies any issues with activity such as chest pain, dyspnea, dizziness, or syncope. He does report feeling a little tired and notes that his energy levels are not as high as they used to be. He also mentions occasional swelling in his left ankle, especially at the end of the day. PHYSICAL EXAM BP 124/71 Pulse 73 SpO2 98% GENERAL: well appearing, alert, in no acute distress CARDIOVASCULAR: regular rate and rhythm. No murmur, rubs or gallops. PULMONARY: clear to auscultation, no wheezing, rhonchi, or crackles ABDOMEN: soft, non-tender, non-distended, no masses or organomegaly EXTREMITY: no lower extremity edema. No skin discoloration. Latest Ref Rng 11/26/2024 Protein, Total 6.3 - 8.0 g/dL 7.2 Albumin 3.9 - 4.9 g/dL 4.3 Calcium 8.5 - 10.2 mg/dL 9.7 Bilirubin, Total 0.2 - 1.3 mg/dL 1.0 Alkaline Phosphatase 38 - 113 U/L 48 AST 14 - 40 U/L 15 ALT 10 - 54 U/L 14 Glucose 74 - 99 mg/dL 124 (H) BUN 9 - 24 mg/dL 33 (H) Creatinine 0.73 - 1.22 mg/dL 1.71 (H) Sodium 136 - 144 mmol/L 139 Potassium 3.7 - 5.1 mmol/L 4.7 Chloride 98 - 107 mmol/L 106 CO2 22 - 30 mmol/L 22 Anion Gap 8 - 15 mmol/L 11 eGFR >=60 mL/min/1.73m? 39 (L) Cholesterol, Total <200 mg/dL 137 Triglyceride <150 mg/dL 68 HDL Cholesterol >39 mg/dL 49 LDL Cholesterol, Calculated <100 mg/dL 74 Non HDL Cholesterol <130 mg/dL 88 VLDL Cholesterol <30 mg/dL 10 TC:HDL Ratio <5.10 2.80 LDL:HDL Ratio <2.54 1.51 Fasting Time hrs 12 Hemoglobin A1C 4.3 - 5.6 % 6.1 (H) Estimated Aver (more content not included)... Normal [facility] Comprehensive metabolic 2000 panelon 11-26-2024 Albumin [Mass/Vol] 4.3 g/dL Normal 3.9-4.9 [facility] Comment on above: Order Comment: Speci men Type: BLOOD SPECIMEN [facility] Address: [address] [place] [address] Performed By: #### 5 7021-8 #### [facility] [id number] [address] [place] [address] [place] ALP [Catalytic activity/Vol] 48 U/L Normal 38-113 [facility] Comment on above: Order Comment: Speci men Type: BLOOD SPECIMEN Ordering Facility: [facility] Address: [address] [place] [address] Performed By: #### 5 7021-8 #### [facility] CLIA [id number] [address] [place] [address] [place] ALT [Catalytic activity/Vol] 14 U/L Normal 10-54 [facility] Comment on above: Order Comment: Speci men Type: BLOOD SPECIMEN Ordering Facility: [facility] Address: [address] [place] [address] Performed By: #### 5 7021-8 #### [facility] CLIA [id number] [address] [place] [address] [place] Anion gap [Moles/Vol] 11 mmol/L Normal 8-15 [facility] Comment on above: Order Comment: Speci men Type: BLOOD SPECIMEN Ordering Facility: [facility] Address: [address] [place] [address] Performed By: #### 5 7021-8 #### [facility] CLIA [id number] [address] [place] [address] [place] AST [Catalytic activity/Vol] 15 U/L Normal 14-40 [facility] Comment on above: Order Comment: Speci men Type: BLOOD SPECIMEN Ordering Facility: [facility] Address: [address] [place] [address] Performed By: #### 5 7021-8 #### [facility] CLIA [id number] [address] [place] [address] [place] Bilirubin [Mass/Vol] 1.0 mg/dL Normal 0.2-1.3 [facility] Comment on above: Order Comment: Speci men Type: BLOOD SPECIMEN Ordering Facility: [facility] Address: [address] [place] [address] Performed By: #### 5 7021-8 #### [facility] CLIA [id number] [address] [place] [address] [place] Calcium [Mass/Vol] 9.7 mg/dL Normal 8.5-10.2 [facility] Comment on above: Order Comment: Speci men Type: BLOOD SPECIMEN Ordering Facility: [facility] Address: [address] [place], [place] [address] Performed By: #### 5 7021-8 #### [facility] CLIA [id number] [address] [place] [address] [place] Chloride [Moles/Vol] 106 mmol/L Normal 98-107 [facility] Comment on above: Order Comment: Speci men Type: BLOOD SPECIMEN Ordering Facility: [facility] Address: [address] [place], [place] [address] Performed By: #### 5 7021-8 #### [facility] CLIA [id number] [address] [place] [address] [place] CO2 [Moles/Vol] 22 mmol/L Normal 22-30 [facility] Comment on above: Order Comment: Speci men Type: BLOOD SPECIMEN Ordering Facility: [facility] Address: [address] [place] [address] Performed By: #### 5 7021-8 #### [facility] CLIA [id number] [address] [place] [address] [place] Creatinine [Mass/Vol] 1.71 mg/dL High 0.73-1.22 [facility] Comment on above: Order Comment: Speci men Type: BLOOD SPECIMEN Ordering Facility: [facility] Address: [address] [place] [address] Performed By: #### 5 7021-8 #### [facility] CLIA [id number] [address] [place] [address] [place] eGFRcr SerPlBld CKD-EPI 2020 39 mL/min/1.73m??? Low >=60 [facility] Comment on above: Order Comment: Abdi james Type: BLOOD SPECIMEN Ordering Facility: [facility] Address: [address] [place] [address] Result Comment: Yuli mated Glomerular Filtration Rate [...] accurately reflect actual GFR. Performed By: #### 5 7021-8 #### [facility] [id number] [address] [place] [address] [place] Glucose [Mass/Vol] 124 mg/dL High 74-99 [facility] Comment on above: Order Comment: Abdi james Type: BLOOD SPECIMEN Ordering Facility: [facility] Address: [address] [place] [address] Result Comment: The [place] Diabetes Association (ADA) provides guidance for cutoff [...] Standards of Medical Care in Diabetes 2016, [place] [employer]. Diabetes Care. 2016.39(Suppl 1). Performed By: #### 5 7021-8 #### [facility] [id number] [address] [place] [address] [place] Potassium [Moles/Vol] 4.7 mmol/L Normal 3.7-5.1 [facility] Comment on above: Order Comment: Abdi james Type: BLOOD SPECIMEN Ordering Facility: [facility] Address: [facility] [place] [address] Performed By: #### 5 7021-8 #### [facility] CLIA [id number] [address] [place] [address] [place] Protein [Mass/Vol] 7.2 g/dL Normal 6.3-8.0 [facility] Comment on above: Order Comment: Speci men Type: BLOOD SPECIMEN Ordering Facility: [facility] Address: [address] [place] [address] Performed By: #### 5 7021-8 #### [facility] [id number] [address] [place] [address] [place] Sodium [Moles/Vol] 139 mmol/L Normal 136-144 [facility] Comment on above: Order Comment: Speci men Type: BLOOD SPECIMEN Ordering Facility: [facility] Address: [address] [place] [address] Performed By: #### 5 7021-8 #### [facility] CLIA [id number] [address] [place] [address] [place] Urea nitrogen [Mass/Vol] 33 mg/dL High 9-24 [facility] Comment on above: Order Comment: Speci men Type: BLOOD SPECIMEN Ordering Facility: [facility] Address: [address] [place] [address] Performed By: #### 5 7021-8 #### [facility] CLIA [id number] [address] [place] [address] [place] HbA1c (Bld)on 11-26-2024 Average glucose Estimated from glycated hemoglobin (Bld) [Mass/Vol] 128 mg/dL Normal [facility] Comment on above: Order Comment: Speci men Type: BLOOD SPECIMENOrdering Facility: [facility] Address: [address] [place] [address] Result Comment: eAG: (Estimated average glucose) is a calculated value from HgbA1c and is community health representative of the average blood glucose level in the last 2-3 month period. Performed By: #### 5 5454-3 ####[facility] LABCLIA [id number] [place] [address] [place] HbA1c (Bld) [Mass fraction] 6.1 % High 4.3-5.6 [facility] Comment on above: Order Comment: Abdi james Type: BLOOD SPECIMENOrdering Facility: [facility] Address: [address] [place] [address] Result Comment: [place] Diabetes Association guidelines indicate that patients with HgbA1c in the range 5.7-6.4% are at increased risk for development of diabetes, and intervention by lifestyle modification may be beneficial. HgbA1c greater or equal to 6.5% is considered diagnostic of diabetes. Performed By: #### 5 5454-3 ####[facility] LABCLIA [id number] [place] [address] [place] Lipid 1996 panelon 5 Cholesterol [Mass/Vol] 137 mg/dL Normal <200 [facility] Comment on above: Order Comment: Abdi james Type: BLOOD SPECIMEN Ordering Facility: [facility] Address: [address] [place] [address] Result Comment: <200 mg/dL, Desirable 200-239 mg/dL, Borderline high >239 mg/dL, High Performed By: #### 5 7021-8 #### [facility] CLIA [id number] [address] [place] [address] [place] Cholesterol in HDL [Mass/Vol] 49 mg/dL Normal >39 [facility] Comment on above: Order Comment: Abdi james Type: BLOOD SPECIMEN Ordering Facility: [facility] Address: [address] [place] [address] Result Comment: 40-5 9 mg/dL, Acceptable >59 mg/dL, High: Negative risk factor for coronary heart disease <40 mg/dL, Low: Positive risk factor for coronary heart disease Performed By: #### 5 7021-8 #### [facility] [id number] [address] [place] [address] [place] Cholesterol in LDL [Mass/Vol] 74 mg/dL Normal <100 [facility] Comment on above: Order Comment: Abdi men Type: BLOOD SPECIMEN Ordering Facility: [facility] Address: [address] [place] [address] Result Comment: <100 mg/dL, Optimal 100-129 mg/dL, Near optimal/above optimal 130-159 mg/dL, Borderline high 160-189 mg/dL, High >189 mg/dL, Very high Secondary prevention optimal LDL Cholesterol levels are recommended to be <70 mg/dL LDL cholesterol is calculated using the Green-NIH equation. Performed By: #### 5 7021-8 #### [facility] [id number] [address] [place] [address] [place] Cholesterol in LDL/Cholesterol in HDL [Mass ratio] 1.51 {ratio} Normal <2.54 [facility] Comment on above: Order Comment: Abdi james Type: BLOOD SPECIMEN Ordering Facility: [facility] Address: [address] [place] [address] Result Comment: Mo yin: 1. National Cholesterol Education Program ATP III Guideline At-A-Glance Quick Desk Reference: National Heart, Lung, and Blood [place]. National Institutes of Health. 2001: NIH Publication No. 01-3305. 2. An International Atherosclerosis Society position paper: global recommendations for the management of dyslipidemia: executive summary, Atherosclerosis. 2014: 232(2):410-413. Performed By: #### 5 7021-8 #### [facility] [id number] [address] [place] [address] [place] Cholesterol in VLDL [Mass/Vol] 10 mg/dL Normal <30 [facility] Comment on above: Order Comment: Abdi james Type: BLOOD SPECIMEN Ordering Facility: [facility] Address: [address] [place] [address] Performed By: #### 5 7021-8 #### [facility] [id number] [address] [place] [address] [place] Cholesterol non HDL [Mass/Vol] 88 mg/dL Normal <130 [facility] Comment on above: Order Comment: Speci men Type: BLOOD SPECIMEN [facility]ing Facility: [facility] Address: [address] [place] [address] Result Comment: <130 mg/dL, Optimal 130-159 mg/dL, Near optimal/above optimal 160-189 mg/dL, Borderline high 190-219 mg/dL, High >219 mg/dL, Very high Secondary prevention optimal non HDL Cholesterol levels are recommended to be <100 mg/dL Performed By: #### 5 7021-8 #### [facility] CLIA [id number] [address] [place] [address] [place] Cholesterol.total/C holesterol in HDL [Mass ratio] 2.80 {ratio} Normal <5.10 [facility] Comment on above: Order Comment: Speci men Type: BLOOD SPECIMEN [facility]ing Facility: [facility] Address: [address] [place] [address] Performed By: #### 5 7021-8 #### [facility] [id number] [address] [place] [address] OF [place] FASTING TIME 12 hrs Normal [facility] Comment on above: Order Comment: Speci men Type: BLOOD SPECIMEN [facility]ing Facility: [facility] Address: [address] [place] [address] Performed By: #### 5 7021-8 #### [facility] [id number] [address] [place] [address] [place] Triglyceride [Mass/Vol] 68 mg/dL Normal <150 [facility] Comment on above: Order Comment: Speci men Type: BLOOD SPECIMEN Ordering Facility: [facility] Address: [address] [place] [address] Result Comment: <150 mg/dL, Normal 150-199 mg/dL, Borderline high 200-499 mg/dL, High >499 mg/dL, Very high Performed By: #### 5 7021-8 #### [facility] CLIA [id number] [address] STATES OF [facility] CNOVon 08-19-2024 CNOV Office Visit (KIDFRW ) -------- RENETTA PINK ([id number]) 1940 M Date Time Provider Department 08/19/24 3:20 PM ÁNGEL JULIO During your visit today, we recorded the following information about you: Pulse Blood pressure Weight Height 65/minute 146/69 85.7 kg 1.78 m Ángel Julio DO 08/19/2024 3:12 PM Signed [facility] [place] [facility] CHIEF COMPLAINT: Chronic kidney disease stage IIIb HPI: Mr. Pink is a 83 year old male with a PMHx of hypertension, diabetes mellitus, and hyperlipidemia who presents with chronic kidney disease stage IIIb. Chronic kidney disease stage IIIb etiology likely to obstructive uropathy, hypertensive nephrosclerosis, and diabetic nephropathy. Established 08/08/2021 - Recommended urology follow up 05/05/2022 - No recent issues. Renal labs every 6 months. Follow up in 12 months. 06/11/2023 - Followed with hematology/oncology for IgG kappa MGUS. 24 hour urine with a poorly defined region of restricted mobility that may represent an M protein. Continue current medications. Follow up yearly or prn. Stable renal function. ACR 54 MEDICATIONS: amLODIPine (NORVASC) 10 mg tablet Take 1 tablet by mouth once daily. losartan (COZAAR) 50 mg tablet Take 1 tablet by mouth two times a day. pantoprazole DR (PROTONIX) 40 mg tablet Take 1 tablet by mouth once daily. Tadalafil (CIALIS) 20 mg tablet Take 1 tablet by mouth as needed. Take 30-60 minutes prior to sexual activity cetirizine (ZYRTEC) 10 mg tablet Take 1 tablet by mouth once daily. doxazosin (CARDURA) 4 mg tablet Take 1 tablet by mouth daily at bedtime. blood sugar diagnostic (FREESTYLE LITE STRIPS) test strip Test blood sugar(s) 1 times daily. Dx: Type 2 DM - Controlled E11.9 Insulin: No (Patient not taking: Reported on 08/19/2024) fluticasone (FLONASE) 50 mcg/actuation nasal spray Use 2 Sprays in each nostril once daily. Rinse mouth after use. simvastatin (ZOCOR) 20 mg tablet Take 1 tablet by mouth daily at bedtime. ergocalciferol, vitamin D2, (VITAMIN D2 ORAL) Take 2 capsules by mouth once daily. Aspirin 81 mg Tab Take 81 mg by mouth once daily. MULTIVITAMIN TAB Take one(1) tablet daily. ALLERGIES: ALLERGIES Allergen Reactions Lisinopril Intolerance Victoriano Cough PHYSICAL EXAM: BP 146/69 Pulse 65 Ht 178 cm (5' 10.08") Wt 85.7 kg (188 lb 15 oz) BMI 27.05 kg/m? BP - standardized method Pulse 1 BP #1: 140/73 Pulse #1: 64 beats/min 2 BP #2 : 150/67 Pulse #2 : 65 beats/min 3 BP #3 : 147/67 Pulse #3 : 65 beats/min Average Average BP: 146/69 Average Pulse: 65 beats/min Orthostatic vitals Supine Sitting Standing BP cuff location BP cuff location: Left upper arm BP cuff size BP cuff size: large adult Comments for BP values First BP (right) First BP (left) Constitutional: No acute distress, Responsive, Normal habitus, and Well-nourished Eyes: Conjunctiva clear and PERRL Ear, Nose, and Throat: Hearing normal, Lips normal, and Dentition normal Neck:Trachea midline No jugular venous distension Cardiovascular:Regular rate and rhythm, normal S1 and S2, no murmurs, rubs, or gallops No peripheral edema Respiratory: Normal respiratory effort. Lungs clear bilaterally. Abdomen:Soft, non-tender, non-distended. Normal bowel sounds. No hepatosplenomegaly. Musculoskeletal: No clubbing or cyanosis of digits., Normocephalic., and No muscle weakness, joint tenderness, or joint effusions. Neurologic:CN II-XII intact and Normal sensation Psychiatric: Alert and oriented x self, place, time, and setting Normal mood/affect DATA: Diagnostic tests reviewed for today's visit: Blood work, imaging studies, and office notes were reviewed in [facility] ASSESSMENT: Mr. Pink is a 83 year old male with a PMHx of hypertension, diabetes mellitus, and hyperlipidemia who presents with chronic kidney disease stage IIIb. Chronic kidney disease stage IIIb - Etiology likely to obstructive uropathy, hypertensive nephrosclerosis, and diabetic nephropathy. Normal renal function 2013 AUDI 08/20/2012. Renal function returned to baseline. Acute urinary retention. TURP 09/2012 with mild AUDI. Renal function stable since that time - ACR negative - US kidney/bladder with increased renal echogenicity and a nodular enlarged prostate gland that invaginates into the bladder lumen which demonstrates wall trabeculation 2. Anemia of renal disease - Hemoglobin at goal 3. Secondary hyperparathyroidism - Calcium controlled 4. Primary hypertension - Controlled at home on current medications Hypertension regimen: - Norvasc 10 mg daily - Losartan 50 mg daily 5. Hyperlipidemia - Statin 6. DMII: Well controlled diabetes since 2013 7. BPH - Yearly follow ups with urology 8. MGUS - Followed PLAN: - Continue current medications - Follow up yearly, sooner prn Discl (more content not included)... Normal [facility] BLADDER SCANon 08-18-2024 PVR: 83ml [facility] CNOVon 08-18-2024 CNOV Office Visit (URCANT ) -------- RENETTA PINK ([id number]) 1940 M Date Time Provider Department 08/18/24 2:15 PM JANUSZ DAVENPORT URCANT During your visit today, we recorded the following information about you: Janusz Davenport MD 09/28/2024 9:02 PM Signed [facility] UROLOGY ESTABLISHED PATIENT CLINIC NOTE UROL [facility] PATIENT INFO: Renetta Pink AGE: [age] year old PCP: Jenae Savage MD IMPRESSION/PLAN: 1. BPH with obstruction/lower urinary tract symptoms - ICD9: 600.01, 599.69, ICD10: N40.1, N13.8 (primary diagnosis) Continue taking doxazosin 4 mg at night for prostate symptoms. 2. ED (erectile dysfunction) of organic origin - ICD9: 607.84, ICD10: N52.9 Regarding the generic Cialis, know that doubling the dose is not recommended. If you plan for intercourse, consider taking your doxazosin earlier in the day to possibly improve the quality of your orgasm; however, maintaining comfortable urination should remain the priority. 3. Renal cyst - ICD9: 753.10, ICD10: N28.1 Your recent kidney imaging shows stable findings with bilateral renal cysts. Although the right kidney cyst shows some changes that may suggest a rupture, you are not experiencing pain or kidney function issues. No further action is needed on this at present. 4. Left nephrolithiasis - ICD9: 592.0, ICD10: N20.0 Stable, asymptomatic REASON FOR VISIT: 6 mo follow up HPI: Renetta Pink returns for continuing evaluation and management. BPH: - Managed with doxazosin 4 mg QHS. - Denies lightheadedness or dizziness. - No concerns with medication efficacy. Erectile Dysfunction: - Taking tadalafil, reports decreased efficacy with recent refill. - Able to achieve erection but notes issues with ejaculation. - Inquires about potential effects of doxazosin and losartan on ejaculation. Renal Cysts: - Bilateral renal cysts, largest measuring 14 cm on the left. - Recent ER visit for suspected cyst rupture; CT showed changes in the right kidney consistent with rupture. - Denies current pain or discomfort. Nephrolithiasis: - History of kidney stones, last noted in January. - Recent imaging in February showed no stones in the left kidney. UROLOGICAL DATA: Urinalysis: GLUCOSE UA (POCT) 100 08/18/2024 BILIRUBIN UA (POCT) Negative 08/18/2024 KETONE UA (POCT) Negative 08/18/2024 SPECIFIC GRAVITY UA (POCT) 1.010 08/18/2024 HEMOGLOBIN/BLOOD UA (POCT) Negative 08/18/2024 PH UA (POCT) 6.0 08/18/2024 PROTEIN UA (POCT) Negative 08/18/2024 UROBILINOGEN UA (POCT) 0.2 08/18/2024 NITRITE UA (POCT) Negative 08/18/2024 LEUKOCYTES UA (POCT) Negative 08/18/2024 COLOR UA (POCT) Yellow 08/18/2024 CLARITY UA (POCT) Clear 08/18/2024 Post Void Residual, Ultrasound: N/A cc OTHER DATA: PSA (ng/mL) Date Value 05/31/2020 4.11 04/10/2017 6.07 03/10/2016 2.29 05/17/2015 2.18 PSA, Percent Free (%) Date Value 05/31/2020 42 05/17/2015 41 09/28/2014 43 05/15/2014 21 No results found for: ISOPSA Creatinine Date Value Ref Range Status 05/22/2024 1.51 (H) 0.73 - 1.22 mg/dL Final 12/24/2023 1.55 (H) 0.73 - 1.22 mg/dL Final 11/16/2023 1.61 (H) 0.73 - 1.22 mg/dL Final 06/20/2023 1.36 (H) 0.73 - 1.22 mg/dL Final No results found for: "TESTOST", "TESTFREE" PMHx/PSHx: see above, otherwise unchanged Rx: reviewed and unchanged ROS: see above, otherwise unchanged Labs: None Imaging: None MEDICATIONS: Current Outpatient Medications Medication Sig amLODIPine (NORVASC) 10 mg tablet Take 1 tablet by mouth once daily. losartan (COZAAR) 50 mg tablet Take 1 tablet by mouth two times a day. pantoprazole DR (PROTONIX) 40 mg tablet Take 1 tablet by mouth once daily. Tadalafil (CIALIS) 20 mg tablet Take 1 tablet by mouth as needed. Take 30-60 minutes prior to sexual activity cetirizine (ZYRTEC) 10 mg tablet Take 1 tablet by mouth once daily. doxazosin (CARDURA) 4 mg tablet Take 1 tablet by mouth daily at bedtime. blood sugar diagnostic (FREESTYLE LITE STRIPS) test strip Test blood sugar(s) 1 times daily. Dx: Type 2 DM - Controlled E11.9 Insulin: No (Patient not taking: Reported on 08/19/2024) fluticasone (FLONASE) 50 mcg/actuation nasal spray Use 2 Sprays in each nostril once daily. Rinse mouth after use. simvastatin (ZOCOR) 20 mg tablet Take 1 [...] well nourished male Psych: euthymic, NAD Neuro: AANDOx3 Inguinal: No lesions, adenopathy, or hernias exam and ANNI deferred (more content not included)... Normal [facility] UA DIP, URINE (POC)on 2024 BILIRUBIN UA (POCT) Negative Negative [facility] CLARITY UA (POCT) Clear [facility] COLOR UA (POCT) Yellow [facility] GLUCOSE UA (POCT) 100 mg/dL Abnormal [facility] Hemoglobin Ql (U) Negative Negative [facility] Interpretation and review of laboratory results Abnormal [facility] KETONE UA (POCT) Negative Negative mg/dL [facility] LEUKOCYTES UA (POCT) Negative Negative [facility] NITRITE UA (POCT) Negative Negative [facility] PH UA (POCT) 6 4.5 - 8.0 [facility] Protein Ql (U) Negative Negative mg/dL [facility] SPECIFIC GRAVITY UA (POCT) 1.01 1.005 - 1.030 [facility] UROBILINOGEN UA (POCT) 0.2 Normal E.U./dL [facility] Location:[facility] [place], [address] [place] [address], [id number] [place] [address] POINT OF CARE [facility] CNOVon 08-04-2024 CNOV Office Visit (FAMPWS ) -------- RENETTA PINK ([id number]) 1940 M Date Time Provider Department 08/04/24 11:00 AM STAR SHANNON During your visit today, we recorded the following information about you: Temperature Pulse Respiration Blood pressure 97 degrees 77/minute 16/minute 118/66 Weight 85.7 kg Star Shannon MD 08/04/2024 1:40 PM Signed Chief Complaint Patient presents with: head cold: With mucus in throat HPI Renetta Pink is a 83 year old male who presents here today for Above Complaints. Patient complaining of nasal congestion, productive cough with townsend/clear sputum, sore throat, post nasal drip, loss of taste/smell, fatigue, watery stool x 1 which started about 1 week ago. Treating with Flonase, Emergen-C, tylenal, and benadryl. Symptoms worse with mowing the lawn. Denies fever/chills, SOB, wheezing, chest pain,chest congestion, headache, myalgias, sinus pain/pressure, nausea, vomiting. Sick contacts with grandchildren. Past medical history, appointments, medications, allergies reviewed. [...] (brain cancer) Brother dm Patient Allergies ALLERGIES Allergen Reactions Lisinopril Intolerance Victoriano Cough Current Medications Current Outpatient Medications on File Prior to Visit Medication Sig amLODIPine (NORVASC) 10 mg tablet Take 1 tablet by mouth once daily. losartan (COZAAR) 50 mg tablet Take 1 tablet by mouth two times a day. pantoprazole DR (PROTONIX) 40 mg tablet Take 1 tablet by mouth once daily. Tadalafil (CIALIS) 20 mg tablet Take 1 tablet by mouth as needed. Take 30-60 minutes prior to sexual activity cetirizine (ZYRTEC) 10 mg tablet Take 1 tablet by mouth once daily. doxazosin (CARDURA) 4 mg tablet Take 1 tablet by mouth daily at bedtime. blood sugar diagnostic (FREESTYLE LITE STRIPS) test strip Test blood sugar(s) 1 times daily. Dx: Type 2 DM - Controlled E11.9 Insulin: No fluticasone (FLONASE) 50 mcg/actuation nasal spray Use 2 Sprays in each nostril once daily. Rinse mouth after use. simvastatin (ZOCOR) 20 mg tablet Take 1 [...] 1978 Years since quittin.3 Smokeless tobacco: Never Tobacco comments: quit 50 years ago Vaping Use Vaping status: Never Used Substance Use Topics Alcohol use: No Drug use: No Review of Symptoms REVIEW OF SYSTEMS See HPI EXAM: BP 118/66 Pulse 77 Temp 36.1 ?C (97 ?F) Resp 16 Wt 85.7 kg (189 lb) SpO2 97% BMI 27.06 kg/m? General Appearance: Well appearing, alert, in no acute distress, well-hydrated, well nourished.. Skin: Skin color, texture, turgor normal, no suspicious rashes or lesions. Head: Normocephalic, no masses, lesions, tenderness or abnormalities. Eyes: Anicteric sclera. Pupils are equally round and reactive to light. Extraocular movements are intact. . Ears: External ears normal, (more content not included)... Normal [facility] CNOVon 05-30-2024 CNOV Office Visit (FAMPWS ) -------- RENETTA PINK ([id number]) 1940 M Date Time Provider Department 05/30/24 1:00 PM [facility] During your visit today, we recorded the following information about you: Pulse Respiration Blood pressure Weight 61/minute 16/minute 148/74 85.7 kg Rafael Ramirez APRN.INSTALLATION COORDINATOR 05/30/2024 1:38 PM Signed Chief Complaint Patient presents with: Follow Up: 6 month ER F/U: [facility] ER fall HPI Renetta Pink is a 83 year old male who presents here today for Chronic Medical Conditions. and ER Follow Up. Patient is here for routine follow-up. He is here with his . Most recently had a fall, braced himself with his right arm, causing elbow to go into side. Caused a ruptured kidney cyst. He went to emergency room for pain control. His pain is resolved. His labs are completed 10 days after the visit and are stable. Hemoglobin A1c is stable at 6.0%. CBC unremarkable. Following with nephrology for stage III kidney disease. His GFR stable. HYPERLIPIDEMIA: Patient is taking medications: Yes. Patient is watching diet: Yes. Patient denies myalgias: Yes. Patient denies gi upset: Yes Following with cardiology. They have increased his antihypertensives. Despite this increase in amlodipine, patient continues to have elevated blood pressures at home. Suddenly less than 140 systolic. Taking medications as prescribed. Without chest pain, shortness of breath, leg swelling. Occasionally will have some dizziness with positional changes but very infrequently. Past medical history, appointments, medications, allergies reviewed. EXAM: BP 148/74 Pulse 61 Resp 16 Wt 85.7 kg (189 lb) SpO2 98% BMI 27.06 kg/m? General Appearance: Well appearing, alert, in no acute distress, well-hydrated, well nourished.. Lungs: Lungs clear to auscultation. No wheezing, rhonchi, rales.. Heart: RRR without murmur, gallop, or rubs. No ectopy. Extremities: No deformities, edema Latest Ref Rn 05/22/2024 WBC 3.70 - 11.00 k/uL 4.61 RBC 4.20 - 6.00 m/uL 4.89 Hemoglobin 13.0 - 17.0 g/dL 13.7 Hematocrit 39.0 - 51.0 % 42.0 MCV 80.0 - 100.0 fL 85.9 MCH 26.0 - 34.0 pg 28.0 MCHC 30.5 - 36.0 g/dL 32.6 RDW-CV 11.5 - 15.0 % 13.6 Platelet Count 150 - 400 k/uL 179 MPV 9.0 - 12.7 fL 9.5 Neut% % 66.6 Abs Neut (ANC) 1.45 - 7.50 k/uL 3.07 Lymph% % 17.8 Abs Lymph 1.00 - 4.00 k/uL 0.82 (L) Roosevelt% % 8.7 Abs Roosevelt <0.87 k/uL 0.40 Eosin% % 6.3 Abs Eosin <0.46 k/uL 0.29 Baso% % 0.4 Abs Baso <0.11 k/uL <0.03 Immature Gran % % 0.2 IMMATURE GRANS (ABS) <0.10 k/uL <0.03 NRBC /100 WBC 0.0 Absolute nRBC <0.01 k/uL <0.01 DTYPE Auto Protein, Total 6.3 - 8.0 g/dL 7.6 Albumin 3.9 - 4.9 g/dL 4.5 Calcium 8.5 - 10.2 mg/dL 10.1 Bilirubin, Total 0.2 - 1.3 mg/dL 1.0 Alkaline Phosphatase 38 - 113 U/L 60 AST 14 - 40 U/L 17 ALT 10 - 54 U/L 21 Glucose 74 - 99 mg/dL 122 (H) BUN 9 - 24 mg/dL 39 (H) Creatinine 0.73 - 1.22 mg/dL 1.51 (H) Sodium 136 - 144 mmol/L 138 Potassium 3.7 - 5.1 mmol/L 4.6 Chloride 98 - 107 mmol/L 107 CO2 22 - 30 mmol/L 23 Anion Gap 8 - 15 mmol/L 8 eGFR >=60 mL/min/1.73m? 45 (L) Cholesterol, Total <200 mg/dL 146 Triglyceride <150 mg/dL 61 HDL Cholesterol >39 mg/dL 50 Non HDL Cholesterol <130 mg/dL 96 Fasting Time hrs 12 VLDL Cholesterol <30 mg/dL 12 TC:HDL Ratio <5.10 2.92 LDL Cholesterol <100 mg/dL 84 LDL:HDL Ratio <2.54 1.68 Creatinine, Ur Random (UCRR) 46.8 - 314.5 mg/dL 85.1 Albumin, Urine Random mg/L 46.0 Albumin/Creat Ratio <30 mg/g 54 (H) Hemoglobin A1C 4.3 - 5.6 % 6.0 (H) Estimated Average Glucose mg/dL 126 ASSESSMENT/PLAN: 1. Type 2 diabetes 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, without long-term current use of insulin, unspecified whether stage 3a or 3b CKD (HCC) - ICD9: 250.40, 585.3, ICD10: E11.22, N18.30 (primary diagnosis) - Controlled -Continue lifestyle control - HEMOGLOBIN A1C 2. Essential hypertension, benign - ICD9: 401.1, ICD10: I10 -Suboptimal, increase losartan to 100 mg daily. Patient will MyChart or in 3 to 4 weeks with updated blood pressure readings. - AMLODIPINE 10 MG TABLET - LOSARTAN 50 MG TABLET - COMPREHENSIVE METABOLIC PANEL 3. Stage 3b chronic kidney disease (HCC) - ICD9: 585.3, ICD10: N18.32 - eGFR: 45 Stable - Counseled on avoiding NSAIDs, adequate hydration - ACEi/ARB prescribed: Yes - LOSARTAN 50 MG TABLET - COMPREHENSIVE METABOLIC PANEL 4. Hyperlipidemia, unspecified hyperlipidemia type - ICD9: 272.4, ICD10: E78.5 - Controlled - Continue current medications - Counseled on healthy diet and regular exercise - LIPID PANEL BASIC 5. Ruptured cyst of kidney - ICD9: 753.10, ICD10: N28.1 -Resolved Rafael Ramirez APRN.INSTALLATION COORDINATOR RTO in 6 months, sooner if needed. This note was partly generated using [employer] voice recognition dictation and may contain some misspelled or inaccurate words missed on review. Al (more content not included)... Normal [facility] ALBUMIN/CREATININE RATIO, UR INEon 05-22-2024 Albumin Unsp time DL <= 20 mg/L (U) [Mass/Time] 46.0 mg/L Normal [facility] Comment on above: Order Comment: Abdi james Type: BLOOD SPECIMEN Ordering Facility: [facility] Address: [address] [place] [address] Performed By: #### 5 7021-8 #### [facility] CLIA [id number] [address] [place] [address] [place] Albumin/Creatinine (U) [Mass ratio] 54 mg/g High <30 [facility] Comment on above: Order Comment: Abdi james Type: BLOOD SPECIMEN Ordering Facility: [facility] Address: [address] [place] [address] Result Comment: Adul t Male and Female Nephrotic Criteria: <30 mg/g is considered normal to mildly increased 30-300 mg/g is considered moderately increased >300 mg/g is considered severely increased KDIGO. (2013). KDIGO 2012 Clinical Practice Guideline for the Evaluation and Management of Chronic Kidney Disease. Official Journal of the International Society of Nephrology, 3(1), 1-150. Performed By: #### 5 7021-8 #### [facility] CLIA [id number] [address] [place] [address] [place] Creatinine (U) [Mass/Vol] 85.1 mg/dL Normal 46.8-314.5 [facility] Comment on above: Order Comment: Abdi james Type: BLOOD SPECIMEN Ordering Facility: [facility] Address: [address] [place] [address] Performed By: #### 5 7021-8 #### [facility] CLIA [id number] [address] [place] [address] [place] CBC W Auto Differential pane l (Bld)on 05-22-2024 Basophils (Bld) [#/Vol] 10*3/uL Normal <0.11 [facility] Comment on above: Order Comment: Speci men Type: BLOOD SPECIMEN Ordering Facility: [facility] Address: [address] [place] [address] Performed By: #### 5 7021-8 #### [facility] CLIA [id number] [address] [place] [address] [place] Basophils/100 WBC (Bld) 0.4 % Normal [facility] Comment on above: Order Comment: Speci men Type: BLOOD SPECIMEN Ordering Facility: [facility] Address: [address] [place] [address] Performed By: #### 5 7021-8 #### [facility] CLIA [id number] [address] [place] [address] [place] Differential cell count method Nom (Bld) Auto Normal [facility] Comment on above: Order Comment: Speci men Type: BLOOD SPECIMEN Ordering Facility: [facility] Address: [address] [place] [address] Performed By: #### 5 7021-8 #### [facility] CLIA [id number] [address] [place] [address] [place] Eosinophils (Bld) [#/Vol] 0.29 10*3/uL Normal <0.46 [facility] Comment on above: Order Comment: Speci men Type: BLOOD SPECIMEN Ordering Facility: [facility] Address: [address] [place] [address] Performed By: #### 5 7021-8 #### [facility] CLIA [id number] [address] [place] [address] [place] Eosinophils/100 WBC (Bld) 6.3 % Normal [facility] Comment on above: Order Comment: Speci men Type: BLOOD SPECIMEN Ordering Facility: [facility] Address: [address] [place] [address] Performed By: #### 5 7021-8 #### [facility] CLIA [id number] [address] [place] [address] [place] Erythrocyte distribution width (RBC) [Ratio] 13.6 % Normal 11.5-15.0 [facility] Comment on above: Order Comment: Speci men Type: BLOOD SPECIMEN Ordering Facility: [facility] Address: [address] [place] [address] Performed By: #### 5 7021-8 #### [facility] [id number] [address] [place] [address] [place] Hematocrit (Bld) [Volume fraction] 42.0 % Normal 39.0-51.0 [facility] Comment on above: Order Comment: Speci men Type: BLOOD SPECIMEN Ordering Facility: [facility] Address: [address] [place] [address] Performed By: #### 5 7021-8 #### [facility] CLIA [id number] [address] [place] [address] [place] Hemoglobin (Bld) [Mass/Vol] 13.7 g/dL Normal 13.0-17.0 [facility] Comment on above: Order Comment: Speci men Type: BLOOD SPECIMEN Ordering Facility: [facility] Address: [address] [place] [address] Performed By: #### 5 7021-8 #### [facility] [id number] [address] [place] [address] [place] Immature granulocytes (Bld) [#/Vol] 10*3/uL Normal <0.10 [facility] Comment on above: Order Comment: Speci men Type: BLOOD SPECIMEN Ordering Facility: [facility] Address: [address] [place] [address] Performed By: #### 5 7021-8 #### [facility] CLIA [id number] [address] [place] [address] [place] [facility] Immature granulocytes/100 WBC (Bld) 0.2 % Normal [facility] Comment on above: Order Comment: Speci men Type: BLOOD SPECIMEN Ordering Facility: [facility] Address: [address] [place] [address] Performed By: #### 5 7021-8 #### [facility] CLIA [id number] [address] [place] [address] [place] Lymphocytes (Bld) [#/Vol] 0.82 10*3/uL Low 1.00-4.00 [facility] Comment on above: Order Comment: Speci men Type: BLOOD SPECIMEN Ordering Facility: [facility] Address: [address] [place] [address] Performed By: #### 5 7021-8 #### [facility] [id number] [address] [place] [address] [place] Lymphocytes/100 WBC (Bld) 17.8 % Normal [facility] Comment on above: Order Comment: Speci men Type: BLOOD SPECIMEN Ordering Facility: [facility] Address: [address] [place] [address] Performed By: #### 5 7021-8 #### [facility] CLIA [id number] [address] [place] [address] [place] MCH (RBC) [Entitic mass] 28.0 pg Normal 26.0-34.0 [facility] Comment on above: Order Comment: Speci men Type: BLOOD SPECIMEN Ordering Facility: [facility] Address: [address] [place] [address] Performed By: #### 5 7021-8 #### [facility] CLIA [id number] [address] [place] [address] [place] MCHC (RBC) [Mass/Vol] 32.6 g/dL Normal 30.5-36.0 [facility] Comment on above: Order Comment: Speci men Type: BLOOD SPECIMEN Ordering Facility: [facility] Address: [address] [place] [address] Performed By: #### 5 7021-8 #### [facility] CLIA [id number] [address] [place] [address] [place] MCV (RBC) [Entitic vol] 85.9 fL Normal 80.0-100.0 [facility] Comment on above: Order Comment: Speci men Type: BLOOD SPECIMEN Ordering Facility: [facility] Address: [address] [place] [address] Performed By: #### 5 7021-8 #### [facility] CLIA [id number] [address] [place] [address] [place] Monocytes (Bld) [#/Vol] 0.40 10*3/uL Normal <0.87 [facility] Comment on above: Order Comment: Speci men Type: BLOOD SPECIMEN Ordering Facility: [facility] Address: [address] [place] [address] Performed By: #### 5 7021-8 #### [facility] CLIA [id number] [address] [place] [address] [place] Monocytes/100 WBC (Bld) 8.7 % Normal [facility] Comment on above: Order Comment: Speci men Type: BLOOD SPECIMEN Ordering Facility: [facility] Address: [address] [place] [address] Performed By: #### 5 7021-8 #### [facility] CLIA [id number] [address] [place] [address] [place] Neutrophils (Bld) [#/Vol] 3.07 10*3/uL Normal 1.45-7.50 [facility] Comment on above: Order Comment: Speci men Type: BLOOD SPECIMEN Ordering Facility: [facility] Address: [address] [place] [address] Performed By: #### 5 7021-8 #### [facility] CLIA [id number] [address] [place] [address] [place] Neutrophils/100 WBC (Bld) 66.6 % Normal [facility] Comment on above: Order Comment: Speci men Type: BLOOD SPECIMEN Ordering Facility: [facility] Address: [address] [place] [address] Performed By: #### 5 7021-8 #### [facility] CLIA [id number] [address] [place] [address] [place] Nucleated RBC (Bld) [#/Vol] 10*3/uL Normal <0.01 [facility] Comment on above: Order Comment: Speci men Type: BLOOD SPECIMEN Ordering Facility: [facility] Address: [address] [place] [address] Performed By: #### 5 7021-8 #### [facility] [id number] [address] [place] [address] [place] Nucleated RBC/100 WBC (Bld) [Ratio] 0.0 /100 WBC Normal [facility] Comment on above: Order Comment: Speci men Type: BLOOD SPECIMEN Ordering Facility: [facility] Address: [address] [place] [address] Performed By: #### 5 7021-8 #### [facility] CLIA [id number] [address] [place] [address] [place] Platelet mean volume (Bld) [Entitic vol] 9.5 fL Normal 9.0-12.7 [facility] Comment on above: Order Comment: Speci men Type: BLOOD SPECIMEN Ordering Facility: [facility] Address: [address] [place] [address] Performed By: #### 5 7021-8 #### [facility] CLIA [id number] [address] [place] [address] [place] Platelets (Bld) [#/Vol] 179 10*3/uL Normal 150-400 [facility] Comment on above: Order Comment: Speci men Type: BLOOD SPECIMEN Ordering Facility: [facility] Address: [address] [place] [address] Performed By: #### 5 7021-8 #### [facility] CLIA [id number] [address] [place] [address] [place] RBC (Bld) [#/Vol] 4.89 10*6/uL Normal 4.20-6.00 [facility] Comment on above: Order Comment: Speci men Type: BLOOD SPECIMEN Ordering Facility: [facility] Address: [address] [place] [address] Performed By: #### 5 7021-8 #### [facility] CLIA [id number] [address] [place] [address] [place] WBC (Bld) [#/Vol] 4.61 10*3/uL Normal 3.70-11.00 [facility] Comment on above: Order Comment: Speci men Type: BLOOD SPECIMEN Ordering Facility: [facility] Address: [address] [place] [address] Performed By: #### 5 7021-8 #### [facility] CLIA [id number] [address] [place] [address] [place] Comprehensive metabolic 2000 panelon 05-22-2024 Albumin [Mass/Vol] 4.5 g/dL Normal 3.9-4.9 [facility] Comment on above: Order Comment: Speci men Type: BLOOD SPECIMENOrdering Facility: [facility] Address: [address] [place] [address] Performed By: #### 2 4323-8 ####[facility] [id number] [place] [address] [place] ALP [Catalytic activity/Vol] 60 U/L Normal 38-113 [facility] Comment on above: Order Comment: Speci men Type: BLOOD SPECIMENOrdering Facility: [facility] Address: [address] [place] [address] Performed By: #### 2 4323-8 ####[facility] [id number] [place] [address] [place] ALT [Catalytic activity/Vol] 21 U/L Normal 10-54 [facility] Comment on above: Order Comment: Speci men Type: BLOOD SPECIMENOrdering Facility: [facility] Address: [address] [place] [address] Performed By: #### 2 4323-8 ####[facility] [id number] [place] [address] [place] Anion gap [Moles/Vol] 8 mmol/L Normal 8-15 [facility] Comment on above: Order Comment: Speci men Type: BLOOD SPECIMENOrdering Facility: [facility] Address: [address] [place] [address] Performed By: #### 2 4323-8 ####[facility] [id number] [place] [address] [place] AST [Catalytic activity/Vol] 17 U/L Normal 14-40 [facility] Comment on above: Order Comment: Speci men Type: BLOOD SPECIMENOrdering Facility: [facility] Address: [address] [place] [address] Performed By: #### 2 4323-8 ####[facility] [id number] [place] [address] [place] Bilirubin [Mass/Vol] 1.0 mg/dL Normal 0.2-1.3 [facility] Comment on above: Order Comment: Speci men Type: BLOOD SPECIMENOrdering Facility: [facility] Address: [address] [place] [address] Performed By: #### 2 4323-8 ####[facility] [id number] [place] [address] [place] Calcium [Mass/Vol] 10.1 mg/dL Normal 8.5-10.2 [facility] Comment on above: Order Comment: Speci men Type: BLOOD SPECIMENOrdering Facility: [facility] Address: [address] [place] [address] Performed By: #### 2 4323-8 ####[facility] MILLWNCLIA [id number] [place] [address] [place] Chloride [Moles/Vol] 107 mmol/L Normal 98-107 [facility] Comment on above: Order Comment: Speci men Type: BLOOD SPECIMENOrdering Facility: [facility] Address: [address] [place] [address] Performed By: #### 2 4323-8 ####[facility]OWNCLIA [id number] [place] [address] [place] CO2 [Moles/Vol] 23 mmol/L Normal 22-30 [facility] Comment on above: Order Comment: Speci men Type: BLOOD SPECIMENOrdering Facility: [facility] Address: [address] [place] [address] Performed By: #### 2 4323-8 ####[facility]OWNCLIA [id number] [place] [address] [place] Creatinine [Mass/Vol] 1.51 mg/dL High 0.73-1.22 [facility] Comment on above: Order Comment: Speci men Type: BLOOD SPECIMENOrdering Facility: [facility] Address: [address] [place] [address] Performed By: #### 2 4323-8 ####[facility]OWNCLIA [id number] [place] [address] [place] Creatinine and Glomerular filtration rate.predicted panel (S/P/Bld) 45 mL/min/1.73m??? Low >=60 [facility] Comment on above: Order Comment: Abdi james Type: BLOOD SPECIMENOrdering Facility: [facility] Address: [address] [place] [address] Result Comment: Yuli mated Glomerular Filtration Rate [...] Performed By: #### 2 4323-8 ####[facility] [id number] [place] [address] [place] Glucose [Mass/Vol] 122 mg/dL High 74-99 [facility] Comment on above: Order Comment: Abdi james Type: BLOOD SPECIMENOrdering Facility: [facility] Address: [address] [place] [address] Result Comment: The [place] Diabetes Association (ADA) provides guidance for cutoff [...] Standards of Medical Care in Diabetes 2016, [place] [employer]. Diabetes Care. 2016.39(Suppl 1). Performed By: #### 2 4323-8 ####[facility] [id number] [place] [address] [place] Potassium [Moles/Vol] 4.6 mmol/L Normal 3.7-5.1 [facility] Comment on above: Order Comment: Speci men Type: BLOOD SPECIMENOrdering Facility: [facility] Address: [address] [place] [address] Performed By: #### 2 4323-8 ####[facility] [id number] [place] [address] [place] Protein [Mass/Vol] 7.6 g/dL Normal 6.3-8.0 [facility] Comment on above: Order Comment: Speci men Type: BLOOD SPECIMENOrdering Facility: [facility] Address: [address] [place] [address] Performed By: #### 2 4323-8 ####[facility] [id number] [place] [address] [place] Sodium [Moles/Vol] 138 mmol/L Normal 136-144 [facility] Comment on above: Order Comment: Speci men Type: BLOOD SPECIMENOrdering Facility: [facility] Address: [address] [place] [address] Performed By: #### 2 4323-8 ####[facility] [id number] [place] [address] [place] Urea nitrogen [Mass/Vol] 39 mg/dL High 9-24 [facility] Comment on above: Order Comment: Speci men Type: BLOOD SPECIMENOrdering Facility: [facility] Address: [address] [place] [address] Performed By: #### 2 4323-8 ####[facility] [id number] [place] [address] [place] HbA1c (Bld)on 05-22-2024 Average glucose Estimated from glycated hemoglobin (Bld) [Mass/Vol] 126 mg/dL Normal [facility] Comment on above: Order Comment: Speci men Type: BLOOD SPECIMEN [facility]ing Facility: [facility] Address: [address] [place] [address] Result Comment: eAG: (Estimated average glucose) is a calculated value from HgbA1c and is community health representative of the average blood glucose level in the last 2-3 month period. Performed By: #### 5 5454-3 #### [facility] CLIA [id number] [address] [place] [address] [place] HbA1c (Bld) [Mass fraction] 6.0 % High 4.3-5.6 [facility] Comment on above: Order Comment: Abdi men Type: BLOOD SPECIMEN [facility]ing Facility: [facility] Address: [address] [place] [address] Result Comment: [place] Diabetes Association guidelines indicate that patients with HgbA1c in the range 5.7-6.4% are at increased risk for development of diabetes, and intervention by lifestyle modification may be beneficial. HgbA1c greater or equal to 6.5% is considered diagnostic of diabetes. Performed By: #### 5 5454-3 #### [facility] CLIA [id number] [address] [place] [address] [place] Lipid 1996 panelon 5 Cholesterol [Mass/Vol] 146 mg/dL Normal <200 [facility] Comment on above: Order Comment: Abdi jacob Type: BLOOD SPECIMEN Ordering Facility: [facility] Address: [address] [place] [address] Result Comment: <200 mg/dL, Desirable 200-239 mg/dL, Borderline high >239 mg/dL, High Performed By: #### 5 7021-8 #### [facility] CLIA [id number] [address] [place] [address] [place] Cholesterol in HDL [Mass/Vol] 50 mg/dL Normal >39 [facility] Comment on above: Order Comment: Abdi jacob Type: BLOOD SPECIMEN Ordering Facility: [facility] Address: [address] [place] [address] Result Comment: 40-5 9 mg/dL, Acceptable >59 mg/dL, High: Negative risk factor for coronary heart disease <40 mg/dL, Low: Positive risk factor for coronary heart disease Performed By: #### 5 7021-8 #### [facility] CLIA [id number] [address] [place] [address] [place] Cholesterol in LDL [Mass/Vol] 84 mg/dL Normal <100 [facility] Comment on above: Order Comment: Abdi james Type: BLOOD SPECIMEN Ordering Facility: [facility] Address: [address] [place] [address] Result Comment: <100 mg/dL, Optimal 100-129 mg/dL, Near optimal/above optimal 130-159 mg/dL, Borderline high 160-189 mg/dL, High >189 mg/dL, Very high Secondary prevention optimal LDL Cholesterol levels are recommended to be < 70 mg/dL Performed By: #### 5 7021-8 #### [facility] [id number] [address] [place] [address] [place] Cholesterol in LDL/Cholesterol in HDL [Mass ratio] 1.68 {ratio} Normal <2.54 [facility] Comment on above: Order Comment: Abdi james Type: BLOOD SPECIMEN Ordering Facility: [facility] Address: [address] [place] [address] Result Comment: Refe humphrey: 1. National Cholesterol Education Program ATP III Guideline At-A-Glance Quick Desk Reference: National Heart, Lung, and Blood [place]. National Institutes of Health. 2001: NIH Publication No. 01-3305. 2. An International Atherosclerosis Society position paper: global recommendations for the management of dyslipidemia: executive summary, Atherosclerosis. 2014: 232(2):410-413. Performed By: #### 5 7021-8 #### [facility] [id number] [address] [place] [address] [place] Cholesterol in VLDL [Mass/Vol] 12 mg/dL Normal <30 [facility] Comment on above: Order Comment: Abdi james Type: BLOOD SPECIMEN Ordering Facility: [facility] Address: [address] [place] [address] Performed By: #### 5 7021-8 #### [facility] CLIA [id number] [address] [place] [address] [place] Cholesterol non HDL [Mass/Vol] 96 mg/dL Normal <130 [facility] Comment on above: Order Comment: Speci men Type: BLOOD SPECIMEN Ordering Facility: [facility] Address: [address] [place] [address] Result Comment: <130 mg/dL, Optimal 130-159 mg/dL, Near optimal/above optimal 160-189 mg/dL, Borderline high 190-219 mg/dL, High >219 mg/dL, Very high Secondary prevention optimal non HDL Cholesterol levels are recommended to be <100 mg/dL Performed By: #### 5 7021-8 #### [facility] CLIA [id number] [address] [place] [address] [place] Cholesterol.total/C holesterol in HDL [Mass ratio] 2.92 {ratio} Normal <5.10 [facility] Comment on above: Order Comment: Speci men Type: BLOOD SPECIMEN Ordering Facility: [facility] Address: [address] [place] [address] Performed By: #### 5 7021-8 #### [facility] [id number] [address] [place] [address] [place] FASTING TIME 12 hrs Normal [facility] Comment on above: Order Comment: Speci men Type: BLOOD SPECIMEN Ordering Facility: [facility] Address: [address] [place] [address] Performed By: #### 5 7021-8 #### [facility] CLIA [id number] [address] [place] [address] [place] Triglyceride [Mass/Vol] 61 mg/dL Normal <150 [facility] Comment on above: Order Comment: Speci men Type: BLOOD SPECIMEN Ordering Facility: [facility] Address: [address] [place] [address] Result Comment: <150 mg/dL, Normal 150-199 mg/dL, Borderline high 200-499 mg/dL, High >499 mg/dL, Very high Performed By: #### 5 7021-8 #### [facility] CLIA [id number] [address] [place] [address] [place] Abdomen/Pelvis without Conto n 05-14-2024 Abdomen/Pelvis without Cont [facility] Imaging Services [address] [place] [address] Abdomen/Pelvis without Cont MR#: [id number] Acct: [id number] Name: RENETTA PINK Rep #: [id number] : 1940 M 83 From: Jenae Booth MD PCP: Dr. Jenae Savage MD Status: REG ER Study: Abdomen/Pelvis without Cont Date of Exam: 08/31 Exam# [id number] Ordering Dr: Zainab Sorensen DO EXAM: CT Abdomen and Pelvis Without Intravenous Contrast CLINICAL INDICATION: TECHNIQUE: Axial computed tomography images of the abdomen and pelvis without intravenous contrast. This CT exam was performed using one or more of the following dose reduction techniques: automated exposure control, adjustment of the mA and/or kV according to patient size, and/or use of iterative reconstruction technique. COMPARISON: 02/05/2024 FINDINGS: LUNG BASES: Partially visualized lung emphysema. No consolidation. ABDOMEN: LIVER: Unremarkable. GALLBLADDER AND BILE DUCTS: Gallbladder is surgically absent. No ductal dilation. PANCREAS: Unremarkable. No ductal dilation. SPLEEN: Unremarkable. No splenomegaly. ADRENALS: Unremarkable. No mass. KIDNEYS AND URETERS: Bilateral renal cysts, largest on the left measuring up to 13.2 cm. There is fat stranding and fluid collection adjacent to the cyst on the right. Rupture of the cyst can not be entirely excluded. STOMACH AND BOWEL: Colonic diverticulosis without acute diverticulitis. No obstruction. PELVIS: APPENDIX: No findings to suggest acute appendicitis. BLADDER: Unremarkable. No stones. REPRODUCTIVE: Unremarkable as visualized. ABDOMEN and PELVIS: INTRAPERITONEAL SPACE: Unremarkable. No free air. No significant fluid collection. BONES/JOINTS: No acute fracture. No dislocation. SOFT TISSUES: Unremarkable. VASCULATURE: Unremarkable. No abdominal aortic aneurysm. LYMPH NODES: Unremarkable. No enlarged lymph nodes. CT/Abdomen/Pelvis without Cont IMPRESSION: 1. Bilateral renal cysts, largest on the left measuring up to 13.2 cm. There is fat stranding and fluid collection adjacent to the cyst on the right. Rupture of the cyst can not be entirely excluded. 2. Colonic diverticulosis without acute diverticulitis. Findings were discussed with Dr. Sorensen by phone on 05/14/2024 at 1428 hours. Reading Location: [facility] CC: Dr. Zainab Sorensen, DO; Dr. Jenae Savage MD Civil Engineering Specialist: Signed Normal [facility] CBC W/Diff, Automatedon Absolute Lymph 0.55 X10 3/uL Low 0.83-4.51 [facility] Comment on above: Performed By: #### L 500.4050, L100.0100 #### [facility] [address] [place], [address] Absolute Neut 7.0 X10 3/uL Normal 2.0-7.7 [facility] Comment on above: Performed By: #### L 500.4050, L100.0100 #### [facility] [address] [facility] [place], [address] Basophils/100 WBC (Bld) 0.4 % Normal 0-1 [facility] Comment on above: Performed By: #### L 500.4050, L100.0100 #### [facility] [address] [place], [address] Eosinophils/100 WBC (Bld) 1.5 % Normal 0-5 [facility] Comment on above: Performed By: #### L 500.4050, L100.0100 #### [facility] [address] [place], [address] Erythrocyte distribution width (RBC) [Ratio] 13.9 % Normal 11.6-14.6 [facility] Comment on above: Performed By: #### L 500.4050, L100.0100 #### [facility] [address] [place], [address] Hematocrit (Bld) [Volume fraction] 41.0 % Normal 40-54 [facility] Comment on above: Performed By: #### L 500.4050, L100.0100 #### [facility] [address] [place], [address] Hemoglobin (Bld) [Mass/Vol] 13.2 g/dL Normal 13.0-16.5 [facility] Comment on above: Performed By: #### L 500.4050, L100.0100 #### [facility] [address] [place], [address] IG% 0.400 Normal 0.0-0.9 [facility] Comment on above: Result Comment: IG% - Immature Granulocytes (promyelocytes, myelocytes and metamyelocytes) > 1% indicates that a LEFT SHIFT is Present. Performed By: #### L 500.4050, L100.0100 #### [facility] [address] [place], [address] Lymphocytes/100 WBC (Bld) 6.8 % Low 19-41 [facility] Comment on above: Performed By: #### L 500.4050, L100.0100 #### [facility] [address] [place], [address] MCH (RBC) [Entitic mass] 28.1 pg Normal 27.0-32.0 [facility] Comment on above: Performed By: #### L 500.4050, L100.0100 #### [facility] [address] [place], [address] MCHC (RBC) [Mass/Vol] 32.2 g/dL Normal 32-36 [facility] Comment on above: Performed By: #### L 500.4050, L100.0100 #### [facility] [address] [place], [address] MCV (RBC) [Entitic vol] 87.2 fL Normal 80-94 [facility] Comment on above: Performed By: #### L 500.4050, L100.0100 #### [facility] [address] [place], [address] Monocytes/100 WBC (Bld) 3.7 % Normal 0-10 [facility] Comment on above: Performed By: #### L 500.4050, L100.0100 #### [facility] [address] [place], [address] Neutrophils/100 WBC (Bld) 87.2 % High 47-70 [facility] Comment on above: Performed By: #### L 500.4050, L100.0100 #### [facility] [address] [place], [address] Nucleated RBC (Bld) [#/Vol] 0 10*3/uL Normal 0-5 [facility] Comment on above: Performed By: #### L 500.4050, L100.0100 #### [facility] [address] [place], [address] Platelet mean volume (Bld) [Entitic vol] 10.2 fL Normal 6.2-12.0 [facility] Comment on above: Performed By: #### L 500.4050, L100.0100 #### [facility] [address] [place], [address] Platelets (Bld) [#/Vol] 156 10*3/uL Normal 150-450 [facility] Comment on above: Performed By: #### L 500.4050, L100.0100 #### [facility] [address] [place], [address] RBC (Bld) [#/Vol] 4.70 10*6/uL Normal 4.6-6.2 [facility] Comment on above: Performed By: #### L 500.4050, L100.0100 #### [facility] [address] [place], [address] RDW SD 44.1 fl High 35.1-43.9 [facility] Comment on above: Performed By: #### L 500.4050, L100.0100 #### [facility] [address] [place], [address] WBC (Bld) [#/Vol] 8.1 10*3/uL Normal 4.4-11.0 [facility] Comment on above: Performed By: #### L 500.4050, L100.0100 #### [facility] [address] [place], [address] Comprehensive Metabolic Prof [facility] 05-14-2024 Albumin [Mass/Vol] 3.8 g/dL Normal 3.2-5.0 [facility] Comment on above: Performed By: #### L 500.4050, L100.0100 #### [facility] [address] [place], [address] Albumin/Globulin [Mass ratio] 1.0 {ratio} Normal 0.9-2.4 [facility] Comment on above: Performed By: #### L 500.4050, L100.0100 #### [facility] [address] [place], [address] ALK P 46 U/L Normal 45-117 [facility] Comment on above: Performed By: #### L 500.4050, L100.0100 #### [facility] [address] [place], [address] ALT [Catalytic activity/Vol] 21 U/L Normal 16-61 [facility] Comment on above: Performed By: #### L 500.4050, L100.0100 #### [facility] [address] [place], [address] AST [Catalytic activity/Vol] 17 U/L Normal 15-37 [facility] Comment on above: Performed By: #### L 500.4050, L100.0100 #### [facility] [address] [place], [address] Bilirubin [Mass/Vol] 1.10 mg/dL High 0.20-1.00 [facility] Comment on above: Result Comment: For patients on eltrombopag therapy, use of Dimension [place] TBIL is not recommended. Performed By: #### L 500.4050, L100.0100 #### [facility] [address] [place], [address] BUN/CRE 22.1 RATIO High 10-20 [facility] Comment on above: Performed By: #### L 500.4050, L100.0100 #### [facility] [address] [place], [address] CA,Total 9.1 mg/dL Normal 8.5-10.1 [facility] Comment on above: Performed By: #### L 500.4050, L100.0100 #### [facility] [address] [place], [address] Chloride [Moles/Vol] 111 mmol/L High 98-107 [facility] Comment on above: Performed By: #### L 500.4050, L100.0100 #### [facility] [address] [place], [address] CO2 [Moles/Vol] 24.0 mmol/L Normal 21.0-32.0 [facility] Comment on above: Performed By: #### L 500.4050, L100.0100 #### [facility] [address] [place], [address] Creatinine [Mass/Vol] 1.72 mg/dL High 0.70-1.30 [facility] Comment on above: Result Comment: The validity of the calculated GFR GFRAA in patients over 70 years has not been determined. Clinical correlation is essential. Performed By: #### L 500.4050, L100.0100 #### [facility] [address] [place], [address] ECRCL 33.01 ml/min Normal [facility] Comment on above: Performed By: #### L 500.4050, L100.0100 #### [facility] [address] [place], [address] EST GFR - AA 49 mL/min Low >60 [facility] Comment on above: Result Comment: Afri can [place] Citizen GFR Calc Performed By: #### L 500.4050, L100.0100 #### [facility] [address] [place], [address] GAP 6 Normal 5-15 [facility] Comment on above: Performed By: #### L 500.4050, L100.0100 #### [facility] [address] [place], [address] GFR/1.73 sq M.predicted among non-blacks MDRD (S/P/Bld) [Vol rate/Area] 40 mL/min/{1.73_m2} Low >60 [facility] Comment on above: Result Comment: Non- GFR Calc Performed By: #### L 500.4050, L100.0100 #### [facility] [address] [place], [address] Globulin (S) [Mass/Vol] 3.7 g/dL Normal 2.2-4.2 [facility] Comment on above: Performed By: #### L 500.4050, L100.0100 #### [facility] [address] [place], [address] Glucose [Mass/Vol] 187 mg/dL High 74-106 [facility] Comment on above: Result Comment: Fast ing Glucose result greater than or equal to 126 mg/dL suggests DIABETES MELLITUS per A.D.A. criteria. Performed By: #### L 500.4050, L100.0100 #### [facility] [address] [place], [address] Potassium [Moles/Vol] 4.0 mmol/L Normal 3.5-5.1 [facility] Comment on above: Performed By: #### L 500.4050, L100.0100 #### [facility] [address] [place], [address] Sodium [Moles/Vol] 142 mmol/L Normal 136-145 [facility] Comment on above: Performed By: #### L 500.4050, L100.0100 #### [facility] [address] [place], [address] T PROT 7.5 g/dL Normal 6.4-8.2 [facility] Comment on above: Performed By: #### L 500.4050, L100.0100 #### [facility] [address] [place], [address] Urea nitrogen [Mass/Vol] 38 mg/dL High 7-18 [facility] Comment on above: Performed By: #### L 500.4050, L100.0100 #### [facility] [address] [place], [address] Emergency Department Summary on 05-14-2024 Emergency Department Summary [facility] Medical Records Department [address] [place] [address] Emergency Department Summary 05/14/24 MR#: [id number] Acct: [id number] Name: RENETTA PINK Rep #: [id number] : 1940 83 From: Zainab Sorensen DO PCP: Dr. Jenae Elderbrock, MD Status:DEP ER Location: ED HPI History of Present Illness Chief Complaint: Fall Informant: patient Narrative Narrative: Patient is 83-year-old male with history of kidney stones presenting with abdominal pain after a fall. He states he was in his normal state of health this morning and was walking around 11 AM when he tripped on uneven sidewalk. He fell forward landing on his hands and his knees. Immediately after the fall he had pretty severe pain in his lower abdomen more diffusely but worse on the right. States he felt nauseous getting up. [facility] Medical History Cyst of kidney, acquired Pulmonary embolism Essential (primary) hypertension Contact dermatitis First degree AV block Accelerated junctional rhythm Hyperlipidemia Syncope and collapse (05/2018) Bronchitis Sinusitis Diabetes Hx of fever Home Medications ???Medication ???Instructions ???Recorded ???Last Taken ???Type xlyetsen-yv-pilsu 300 mcg-K 60 1 tab PO DAILY vitamin 04/11/17 History mcg-lycop 600 mcg-lutein 300 mcg tablet (Centrum Silver Men) tadalafil 20 mg tablet 20 mg PO DAILY PRN Erectile Unknown History Dysfunction ondansetron 4 mg disintegrating 4 mg PO Q6H PRN nausea and 2 Unknown Rx tablet vomiting #10 tabs cholecalciferol (vitamin D3) 50 50 mcg PO DAILY 11/02/21 Unknown H istory mcg (2,000 unit) capsule aspirin 81 mg tablet,delayed 81 mg PO DAILY #90 tabs 03/22/22 U nknown Rx release (Adult Aspirin Regimen) cetirizine 10 mg tablet 10 mg PO DAILY PRN allergy symptom s 01/24/23 Unknown History pantoprazole 40 mg tablet,delayed 40 mg PO DAILY 01/24/23 Unknown H istory release amlodipine 10 mg tablet 10 mg PO DAILY #90 tabs 01/24/24 U nknown Rx doxazosin 4 mg tablet 4 mg PO QHS #90 tabs 01/24/24 Unkn own Rx losartan 50 mg tablet 50 mg PO DAILY #90 tabs 01/24/24 U nknown Rx simvastatin 20 mg tablet See Rx Instructions .Route 4 Unknown Rx .COMPLEX #90 tabs oxycodone-acetaminophen 5 mg-325 1 tab PO Q6H PRN PRN Pain 3 days 1 Unknown Rx mg tablet #12 TABLETS hydrocodone-acetaminophe n 5-325mg 1 tab PO Q6H PRN PRN Pain 3 days 02/05/24 Unknown Rx 5mg-325mg #12 TABLETS ondansetron 4 mg disintegrating 4 mg PO Q8H PRN PRN Nausea #10 tab s 02/05/24 Unknown Rx tablet hydrocodone-acetaminophe n 5-325mg 1 tab PO Q8H PRN Pain 3 days #10 05/14/24 Unknown Rx 5mg-325mg TABLETS Allergy/AdvReac Type Severity Reaction Status Date / Time lisinopril AdvReac Intermediate Dry Verified 05/14/24 12:18 persistent cough Family History Mother Diabetes CVA (cerebral vascular accident) Father Diabetes Heart disease Surgical History Hx of cholecystectomy Social History Smoking Status: Never smoker alcohol intake: never ROS ROS ED Constitutional Constitutional ED: Denies chills or fever(s) Cardiovascular Cardiovascular: Denies chest pain Respiratory/Chest Respiratory/Chest: Denies cough Gastrointestinal Gastrointestinal: Reports abdominal pain and nausea; Denies constipation, diarrhea or vomiting Genitourinary Genitourinary ED: Reports other Details: Notes he has not urinated since this fall ; Denies dysuria or hematuria Musculoskeletal Musculoskeletal: Denies arthralgias, back pain or myalgias Integumentary Denies rash Hematologic/Lymphatic Hematologic/Lymphatic: Denies easy bleeding or easy bruising EXAM Physical Exam Const Vital Signs: 05/14/24 12:17 05/14/24 12:49 05/14/24 16:17 Temperature 96.8 F L Temperature Source Temporal Pulse Rate 58 L 53 L Respiratory Rate 19 H 12 Respiratory Effort Normal Respiratory Depth Normal Respiratory Pattern Normal Blood Pressure 147/104 H 141/63 H Blood Pressure Mean 118 89 Pulse Ox 97 94 Oxygen Delivery Method Room Air Room Air Room Air 05/14/24 20:00 05/14/24 21:00 Temperature 97.7 F L Temperature Source Pulse Rate 66 87 Respiratory Rate 12 16 Respiratory Effort Respiratory Depth Respiratory Pattern Blood Pressure 162/67 H 145/74 H Blood Pressure Mean 98 97 Pulse Ox 94 99 Oxygen Delivery Method Room Air Positive well nourished and well developed General Appearance ED: well developed and NAD HEENT at (more content not included)... Normal [facility] HH, Hemoglobin AND Hematocri ton 05-14-2024 Hematocrit (Bld) [Volume fraction] 39.4 % Low 40-54 [facility] Comment on above: Performed By: #### L 100.0600 #### [facility] [address] [place], [address] Hemoglobin (Bld) [Mass/Vol] 12.8 g/dL Low 13.0-16.5 [facility] Comment on above: Performed By: #### L 100.0600 #### [facility] [address] [place], [address] Urinalysis, Completeon 05-14 BACTERIA RARE Normal None Seen [facility] Comment on above: Order Comment: CLEAN CATCH Performed By: #### L 400.0001 #### [facility] [address] [place], [address] RBC 25-50 SEEN Normal 0-5 [facility] Comment on above: Order Comment: CLEAN CATCH Performed By: #### L 400.0001 #### [facility] [address] [place], [address] WBC 0-5 SEEN Normal 0-5 [facility] Comment on above: Order Comment: CLEAN CATCH Performed By: #### L 400.0001 #### [facility] [address] [place], [address] EPI,SQUAMOUS 0 SEEN Normal 0-5 [facility] Comment on above: Order Comment: CLEAN CATCH Performed By: #### L 400.0001 #### [facility] [address] [place], [address] Mucus Ql (Urine sed) 0 SEEN Normal [facility] Comment on above: Order Comment: CLEAN CATCH Performed By: #### L 400.0001 #### [facility] [place], [address] MAGALYAmaya 03-11-2024 [facility] -------- RENETTA PINK ([id number]) 1940 M Date Time Provider Department 03/11/24 [facility] During your visit today, we recorded the following information about you: Jenae Savage MD 03/11/2024 4:14 PM Signed Please notify patient that is MRI looks OK; the kidney cysts are stable, so nothing further needs done at this time. MD Kike Infante Kathryn, MA 03/11/2024 4:47 PM Signed Pt notified. Nel Stokes MA Allergies As of Date: 03/11/2024 Noted Allergy Reaction LISINOPRIL 11/24/2022 5 - Intolerance Comments: Victoriano Cough Date Reviewed: 02/19/2024 Reviewed by: Soco Larose MA - Fully Assessed Reason for Visit: Results [95] Prescriptions as of 03/11/2024 - Tadalafil (CIALIS) 20 mg tablet Take 1 tablet by mouth as needed. Take 30-60 minutes prior to sexual activity - cetirizine (ZYRTEC) 10 mg tablet Take [...] DM - Controlled E11.9 Insulin: No - losartan (COZAAR) 50 mg tablet Take [...] tablet daily. Problem List As Of Date 03/11/2024 Noted Resolved BLADDER NECK OBSTRUCTION [N32.0] 08/21/2005 [...] stage 3 chronic k*05/25/2023 Encounter Status:Closed by NEL STOKES on 03/11/24 Normal [facility] MRI KIDNEY WO/W IVCONon 11-2 MRI KIDNEY WO/W IVCON * * *Final Report* * * DATE OF EXAM: Mar 04 2024 1:50PM WRM 0721 - MRI KIDNEY WO/W IVCON / PROCEDURE REASON: Other specified disorders of kidney and ureter * * * * Physician Interpretation * * * * EXAMINATION: MRI ABDOMEN WITHOUT AND WITH IV CONTRAST CLINICAL HISTORY: Renal mass characterization. TECHNIQUE: . Pulse sequences included: axial precontrast T1 weighted in- and [id number], axial and coronal HASTE, axial DWI with creation of ADC map; axial and coronal T1-VIBE before and after the administration of intravenous gadolinium chelate. Multiple post processing techniques were performed. MQ: [id number] Contrast: IV administration of 17 ml of Dotarem COMPARISON: 05/27/2015 MRI. Renal ultrasound of 01/11/2023. CT scans of 06/09/2013 RESULT: Kidneys, adrenals and ureters: Bilateral simple and hemorrhagic nonenhancing Bosniak 1 and 2 category renal cysts. The largest on the right is 11.1 cm. The largest on the left is 14.6 cm. Right kidney: No solid or enhancing mass. Right renal vasculature - Arterial: 2 right renal arteries. No early branch (< 1cm). - Venous: single. Right ureter: Single ureter. No hydronephrosis. Right adrenal: Stable mild thickening without developing abnormality Left kidney: No solid or enhancing mass. Left renal vasculature - Arterial: single. No early branch (< 1cm). - Venous: conventional, anterior to the aorta. Left ureter: Single ureter. No hydronephrosis. Left adrenal: Stable mild thickening, without developing abnormality Retroperitoneal lymphadenopathy and IV involvement:None Abdomen: Motion artifact limits detail to some degree Liver: Normal morphology. No hepatic steatosis. No mass. Biliary: No bile duct dilation. Cholecystectomy. 5 mm filling defect within the distal common duct. Image 30 series 8. Image 32 series 3 Spleen: No mass. No splenomegaly. Pancreas: No duct dilatation. Stable multiple cystic foci, likely sidebranch IPMN. Measuring at or near 1 cm each . No developing or suspicious pancreatic lesion.. GI tract: No dilation or wall thickening. The appendix appears normal Lymph nodes (other): No abdominal or pelvic lymphadenopathy. Mesentery/Peritoneum: Trace ascites. Retroperitoneum: No mass. Vasculature: The celiac axis and SMA are patent. The portal vein and branches, splenic vein, SMV, and hepatic veins are patent. The aorta is normal in caliber Bones/Soft Tissues: Multilevel degenerative disc disease T2 coronal shipping clerk crating image demonstrates bladder wall trabeculation and small diverticula. IMPRESSION: Trace ascites. Bladder wall trabeculation. Bladder diverticula. Grossly stable bilateral Bosniak I and II simple and hemorrhagic renal cysts. No solid or enhancing renal lesion. Multiple pancreatic cystic lesions are grossly stable. Likely sidebranch IPMN 0.5 cm filling defect within the distal common duct. Possibly small calculus. No significant intrahepatic or extrahepatic biliary dilatation, however. Please correlate clinically. ERCP may be helpful clinically indicated Civil Engineering Specialist: PSCB Transcribe Date/Time: Mar 05 2024 11:26A Dictated by : FIDE RALPH MD This examination was interpreted and the report reviewed and electronically signed by: FIDE RALPH MD on Mar 05 2024 11:40AM EST [id number] Normal [facility] CNNURSEon 02-20-2024 [facility] Nurse Visit (FAMPWS) -------- RENETTA PINK ([id number]) 1940 M Date Time Provider Department 02/20/24 10:45 AM [facility] During your visit today, we recorded the following information about you: Carol Hdz LPN 02/20/2024 10:46 AM Signed Patient presents for Flu vaccine. Denies any problems at this time. Tolerated injection well. Carol Hdz LPN Allergies As of Date: 02/20/2024 Noted Allergy Reaction LISINOPRIL 11/24/2022 5 - Intolerance Comments: Victoriano Cough Date Reviewed: 02/19/2024 Reviewed by: Soco Larose MA - Fully Assessed Reason for Visit: Imm/Inj [58] Visit Diagnosis:Encounter for immunization [Z23] Order(s):INFLUENZA VACCINE, PRSV FREE, AGE 65+ YR, HIGH DOSE, TRIVALENT (FLUZONE HIGH-DOSE) [20942TSF] Order #: [id number] Prescriptions as of 02/20/2024 - Tadalafil (CIALIS) 20 mg tablet Take 1 tablet by mouth as needed. Take 30-60 minutes prior to sexual activity - cetirizine (ZYRTEC) 10 mg tablet Take [...] DM - Controlled E11.9 Insulin: No - losartan (COZAAR) 50 mg tablet Take [...] tablet daily. Problem List As Of Date 02/20/2024 Noted Resolved BLADDER NECK OBSTRUCTION [N32.0] 08/21/2005 [...] stage 3 chronic k*05/25/2023 Encounter Status:Closed by CAROL HDZ on 02/20/24 Normal [facility] BLADDER SCANon 02-19-2024 162ml [facility] CNOVon 02-19-2024 CNOV Office Visit (URCANT ) -------- RENETTA PINK ([id number]) 1940 M Date Time Provider Department 02/19/24 2:00 PM JANUSZ DAVENPORT URCANPoornima During your visit today, we recorded the following information about you: Janusz Davenport MD 04/06/2024 8:29 PM Signed [facility] UROLOGY ESTABLISHED PATIENT CLINIC NOTE UROL RASHEEDA MOB PATIENT INFO: Renetta Pink AGE: [id number] year old PCP: Jenae Savage MD IMPRESSION/PLAN: 1. BPH with obstruction/lower urinary tract symptoms [N40.1, N13.8] - ICD9: 600.01, 599.69, ICD10: N40.1, N13.8 (primary diagnosis) -Stable at the time, remain on doxazosin. 2. ED (erectile dysfunction) of organic origin - ICD9: 607.84, ICD10: N52.9 -Refill for tadalafil requested. 3. Left nephrolithiasis - ICD9: 592.0, ICD10: N20.0 -Obtain stat KUB today to evaluate for position of left kidney stone. REASON FOR VISIT: 1 year follow-up HPI: Renetta Pink returns for continuing evaluation and management. Patient continues to be compliant with taking doxazosin daily for LUTS related to BPH. Overall very comfortable with voiding symptoms. See IPSS scores below. Patient states that he presented to his PCP recently with symptoms of left flank pain and underwent CT which showed a 4 mm left renal stone. Patient wishes to know if his stone has passed. Actual image report not available at the time of patient's evaluation. In addition, patient is requesting a refill for tadalafil for ED treatment. INTERNATIONAL PROSTATE SYMPTOM SCORE (I-PSS) 1)INCOMPLETE EMPTYING Over the past month, how often have you had a sensation of not emptying your bladder completely after you finished urinating? SCORE: 0- Not at all 2)FREQUENCY Over the past month, how often have you had to urinate again less than two hours after you finished urinating? SCORE: 1- Less [...] in the morning? SCORE:0 TOTAL I-PSS SCORE: 4 QUALITY OF LIFE DUE TO URINARY SYMPTOMS [...] (POCT) Clear 02/15/2023 Post Void Residual, Ultrasound: 162 cc, adequate emptying OTHER DATA: PSA (ng/mL) Date Value 05/31/2020 4.11 04/10/2017 6.07 03/10/2016 2.29 05/17/2015 2.18 PSA, Percent Free (%) Date Value 05/31/2020 42 05/17/2015 41 09/28/2014 43 05/15/2014 21 No results found for: ISOPSA Creatinine Date Value Ref Range Status 12/24/2023 1.55 (H) 0.73 - 1.22 mg/dL Final 11/16/2023 1.61 (H) 0.73 - 1.22 mg/dL Final 06/20/2023 1.36 (H) 0.73 - 1.22 mg/dL Final 05/17/2023 1.55 (H) 0.73 - 1.22 mg/dL Final No results found for: "TESTOST", "TESTFREE" PMHx/PSHx: see above, otherwise unchanged Rx: reviewed and unchanged ROS: see above, otherwise unchanged Labs: None Imaging: None MEDICATIONS: Current Outpatient Medications Medication Sig cetirizine (ZYRTEC) [...] 2 DM - Controlled E11.9 Insulin: No losartan (COZAAR) 50 mg tablet Take 1 tablet by mouth every afternoon. fluticasone (FLONASE) 50 mcg/actuation nasal spray Use 2 Sprays in each nostril once daily. Rinse mouth after use. (Patient taking differently: Use 2 Sprays in each nostril as needed. Rinse mouth after use.) simvastatin (ZOCOR) 20 mg tablet Take 1 tablet by mouth daily at bedtim (more content not included)... Normal [facility] UA DIP, URINE (POC)on 2023 BILIRUBIN UA (POCT) Negative Negative [facility] CLARITY UA (POCT) Clear [facility] COLOR UA (POCT) Yellow [facility] GLUCOSE UA (POCT) Negative Negative mg/dL [facility] Hemoglobin Ql (U) Negative Negative [facility] KETONE UA (POCT) Negative Negative mg/dL [facility] LEUKOCYTES UA (POCT) Negative Negative [facility] NITRITE UA (POCT) Negative [facility] PH UA (POCT) 5.5 4.5 - 8.0 [facility] Protein Ql (U) Negative Negative mg/dL [facility] SPECIFIC GRAVITY UA (POCT) 1.015 1.005 - 1.030 [facility] UROBILINOGEN UA (POCT) 0.2 Normal E.U./dL [facility] Location:[facility], [address] [place] [address], [address] [place] [address] POINT OF CARE [facility] XR ABD 2V SUPINE W UPR/DECUB /CTLon 02-19-2024 XR ABD 2V SUPINE W UPR/DECUB/CTL * * *Final Report* * * DATE OF EXAM: Feb 19 2024 2:29PM [id number] - XR ABD 2V SUPINE W UPR/DECUB/CTL / PROCEDURE REASON: Left nephrolithiasis * * * * Physician Interpretation * * * * XR ABD 2V SUPINE W UPR/DECUB/CTL Ordering Physician: JANUSZ DAVENPORT Clinical Statement: Left nephrolithiasis. FINDINGS: No visible renal or ureteral calculus. Unremarkable bowel gas pattern. No acute osseous abnormality. Surgical clips in the right upper quadrant. Degenerative change within the spine. IMPRESSION: No visible renal or ureteral calculus. Civil Engineering Specialist: MANOJ Transcribe Date/Time: Feb 19 2024 3:13P Dictated by : CHERYL PALUMBO MD This examination was interpreted and the report reviewed and electronically signed by: CHERYL PALUMBO MD on Feb 19 2024 3:18PM EST [id number] Normal [facility] XR Abdomen Supine and Uprigh ton 02-19-2024 IMPRESSION: No visible renal or ureteral calculus. Civil Engineering Specialist: PSCB Transcribe Date/Time: Feb 19 2024 3:13P Dictated by : CHERYL PALUMBO MD This examination was interpreted and the report reviewed and electronically signed by: CHERYL PALUMBO MD on Feb 19 2024 3:18PM EST [facility] * * *Final Report* * * DATE OF EXAM: Feb 19 2024 2:29PM [id number] - XR ABD 2V SUPINE W UPR/DECUB/CTL / PROCEDURE REASON: Left nephrolithiasis * * * * Physician Interpretation * * * * XR ABD 2V SUPINE W UPR/DECUB/CTL Ordering Physician: JANUSZ DAVENPORT Clinical Statement: Left nephrolithiasis. FINDINGS: No visible renal or ureteral calculus. Unremarkable bowel gas pattern. No acute osseous abnormality. Surgical clips in the right upper quadrant. Degenerative change within the spine. [facility] Provider, Caesar Giles - 02/19/2024 * * *Final Report* * * DATE OF EXAM: Feb 19 2024 2:29PM [id number] - XR ABD 2V SUPINE W UPR/DECUB/CTL / PROCEDURE REASON: Left nephrolithiasis * * * * Physician Interpretation * * * * XR ABD 2V SUPINE W UPR/DECUB/CTL Ordering Physician: JANUSZ DAVENPORT Clinical Statement: Left nephrolithiasis. FINDINGS: No visible renal or ureteral calculus. Unremarkable bowel gas pattern. No acute osseous abnormality. Surgical clips in the right upper quadrant. Degenerative change within the spine. IMPRESSION IMPRESSION: No visible renal or ureteral calculus. Civil Engineering Specialist: [facility] Transcribe Date/Time: Feb 19 2024 3:13P Dictated by : CHERYL PALUMBO MD This examination was interpreted and the report reviewed and electronically signed by: CHERYL PALUMBO MD on Feb 19 2024 3:18PM EST [facility] Radiology Study observation (narrative) [facility] Abdomen Supine and Uprigh tOrdered By: [facility] Provider on 02-19-2024 [facility] US KIDNEY/BLADDERon 01-12-20 [facility] XR Chest PA and Lateralon IMPRESSION: Persistent elevation of the left hemidiaphragm. No focal lung consolidation. Civil Engineering Specialist: MANOJ Transcribe Date/Time: Sep 18 2022 3:44P Dictated by : NHUNG BARKER MD This examination was interpreted and the report reviewed and electronically signed by: NHUNG BARKER MD on Sep 18 2022 3:44PM [facility] OF RADIOLOG[facility] * * *Final [...] the thoracic spine. DIVISION OF RADIOLOGY Provider, [facility] - 09/18/2022 * * *Final Report* [...] the left hemidiaphragm. No focal lung consolidation. Civil Engineering Specialist: MANOJ Transcribe Date/Time: Sep 18 2022 3:44P Dictated by : NHUNG BARKER MD This examination was interpreted and the report reviewed and electronically signed by: NHUNG BARKER MD on Sep 18 2022 3:44PM EST [facility] Radiology Study observation (narrative) [facility] XR Chest PA and LateralOrder ed By: [facility] Provider on 09-18-2022 [facility] Basophil percentageon 2021 Bilirubin [Mass/Vol] 1.10 mg/dL 0.20-1.00 [facility] Work Phone: Comment on above: For patients on eltr ombopag therapy, use of Dimension [place] TBIL is not recommended. Cholesterol [Mass/Vol] 122 mg/dL <200 [facility] Work Phone: Comment on above: <200 mg/dL Desirable 200-240 mg/dL Borderline >240 mg/dL High Risk Protein [Mass/Vol] 7.0 g/dL 6.4-8.2 [facility] Work Phone: Triglyceride [Mass/Vol] 44 mg/dL <199 [facility] Work Phone: Comment on above: The drugs N-Acetylcy steine and Metamizole may falsely depress this assay.Serum Triglycerides Reference Interval Normal <150 mg/dL Borderline high 150 - 199 mg/dL High 200 - 499 mg/dL Very High > or = 500 mg/dL Direct bilirubinon 2 Bilirubin.direct [Mass/Vol] 0.27 mg/dL 0.00-0.30 [facility] Work Phone: Laboratory - Chemistry and C hemistry - challengeon 01-28-2022 ALP [Catalytic activity/Vol] 49 U/L 45-117 [facility] Work Phone: ALT [Catalytic activity/Vol] 28 U/L 16-61 [facility] Work Phone: Globulin (S) [Mass/Vol] 3.3 g/dL 2.2-4.2 [facility] Work Phone: Serum or plasma albumin arpit urement (mass/volume)on 01-28-2022 Albumin [Mass/Vol] 3.7 g/dL 3.2-5.0 [facility] Work Phone: Serum or plasma cholesterol in HDL measurement (mass/volume)on 01-28-2022 Cholesterol in HDL [Mass/Vol] 58 mg/dL >40 [facility] Work Phone: Comment on above: The drugs N-Acetylcy steine and Metamizole may falsely depress this assay. Reference Range HDL <40 mg/dL Low HDL Cholesterol HDL >or= 60 mg/dL High HDL Cholesterol Serum or plasma cholesterol in VLDL measurement (mass/volume)on 01-28-2022 Cholesterol in VLDL [Mass/Vol] 9 mg/dL 5-40 [facility] Work Phone: Serum or plasma low density lipoprotein (LDL) cholesterol measurement (mass/volume)on 01-28-2022 Cholesterol in LDL [Mass/Vol] 55 mg/dL 0-130 [facility] Work Phone: Thin prep Papanicolaou smear with manual screeningon 01-28-2022 Thin prep Papanicolaou smear with manual screening 23 U/L 15-37 [facility] Work Phone: UA DIP, URINE (POC)on 2021 BILIRUBIN UA (POCT) Negative Negative [facility] CLARITY UA (POCT) Clear [facility] COLOR UA (POCT) Yellow [facility] GLUCOSE UA (POCT) Negative Negative mg/dL [facility] HEMOGLOBIN/BLOOD UA (POCT) Negative Negative [facility] KETONE UA (POCT) Negative Negative mg/dL [facility] LEUKOCYTES UA (POCT) Negative Negative [facility] NITRITE UA (POCT) Negative Negative [facility] PH UA (POCT) 5.5 4.5 - 8.0 [facility] Protein Ql (U) Negative Negative mg/dL [facility] SPECIFIC GRAVITY UA (POCT) 1.010 1.005 - 1.030 [facility] UROBILINOGEN UA (POCT) 0.2 E.U./dL Normal E.U./dL [facility] Absolute lymphocyte counton 09-06-2021 Lymphocytes Auto (Unsp spec) [#/Vol] 0.49 10*3/uL 0.83-4.51 [facility] Work Phone: Basophil percentageon 2021 Basophil percentage 0-5 SEEN /hpf [facility] Work Phone: Basophils/100 WBC (Bld) 0.2 % 0-1 [facility] Work Phone: Bilirubin [Mass/Vol] 0.90 mg/dL 0.20-1.00 [facility] Work Phone: Comment on above: For patients on eltr ombopag therapy, use of Dimension [place] TBIL is not recommended. Chloride [Moles/Vol] 109 mmol/L 98-107 [facility] Work Phone: Eosinophils/100 WBC (Bld) 0.2 % 0-5 [facility] Work Phone: Glucose [Mass/Vol] 179 mg/dL 74-106 [facility] Work Phone: Comment on above: Fasting Glucose resu lt greater than or equal to 126 mg/dL suggests DIABETES MELLITUS per A.D.A. criteria. Neutrophils (Bld) [#/Vol] 7.9 10*3/uL 2.0-7.7 [facility] Work Phone: Neutrophils/100 WBC (Bld) 87.7 % 47-70 [facility] Work Phone: Potassium [Moles/Vol] 4.5 mmol/L 3.5-5.1 [facility] Work Phone: Protein [Mass/Vol] 7.5 g/dL 6.4-8.2 [facility] Work Phone: Sodium [Moles/Vol] 140 mmol/L 136-145 [facility] Work Phone: WBC (Bld) [#/Vol] 9.0 10*3/uL 4.4-11.0 [facility] Work Phone: Bilirubin Test strip Ql (U)o n 09-06-2021 Bilirubin Ql (U) Negative Negative [facility] Work Phone: Blood erythrocytes count (nu mber/volume)on 09-06-2021 RBC (Bld) [#/Vol] 5.41 10*6/uL 4.6-6.2 [facility] Work Phone: Blood hemoglobin measurement (mass/volume)on 09-06-2021 Hemoglobin (Bld) [Mass/Vol] 15.1 g/dL 13.0-16.5 [facility] Work Phone: Blood lymphocytes/100 leukoc yteson 09-06-2021 Lymphocytes/100 WBC (Bld) 5.5 % 19-41 [facility] Work Phone: Blood manual differential co mment interpretation (narrative result)on 09-06-2021 Manual differential comment Luis Manuel (Bld) [Interp] SEE COMMENT [facility] Work Phone: Comment on above: LYMPHOPENIA NOTED Blood monocytes/100 leukocyt eson 09-06-2021 Monocytes/100 WBC (Bld) 6.1 % 0-10 [facility] Work Phone: Blood platelet adequacy dete ction by light microscopyon 09-06-2021 Platelets LM Ql (Bld) ADEQUATE ADEQ [facility] Work Phone: Blood platelet mean volumeon 09-06-2021 Platelet mean volume (Bld) [Entitic vol] 9.9 fL 6.2-12.0 [facility] Work Phone: Determination of erythrocyte mean corpuscular volume (MCV)on 09-06-2021 MCV (RBC) [Entitic vol] 86.7 fL 80-94 [facility] Work Phone: Hematocrit Auto (Bld) [Volum e fraction]on 09-06-2021 Hematocrit (Bld) [Volume fraction] 46.9 % 40-54 [facility] Work Phone: Ketones Test strip Ql (U)on 09-06-2021 Ketones Ql (U) 5 mg/dl Negative [facility] Work Phone: Laboratory - Chemistry and C hemistry - challengeon 09-06-2021 ALP [Catalytic activity/Vol] 49 U/L 45-117 [facility] Work Phone: [phone] ALT [Catalytic activity/Vol] 31 U/L 16-61 [facility] Work Phone: [phone] CO2 [Moles/Vol] 24.0 mmol/L 21.0-32.0 [facility] Work Phone: Globulin (S) [Mass/Vol] 3.7 g/dL 2.2-4.2 [facility] Work Phone: [phone] Lipase [Catalytic activity/Vol] 627 U/L 73-393 [facility] Work Phone: [phone] Magnesium [Mass/Vol] 2.0 mg/dL 1.6-2.6 [facility] Work Phone: Urea nitrogen/Creatinine [Mass ratio] 21.6 mg/mg 10-20 [facility] Work Phone: Laboratory - Hematology and Cell countson 09-06-2021 Anisocytosis Ql (Bld) RARE [facility] Work Phone: Erythrocyte distribution width (RBC) [Entitic vol] 42.2 fL 35.1-43.9 [facility] Work Phone: Erythrocyte distribution width (RBC) [Ratio] 13.4 % 11.6-14.6 [facility] Work Phone: [phone] Immature granulocytes/100 WBC (Bld) 0.300 % 0.0-0.9 [facility] Work Phone: [phone] Comment on above: IG% - Immature Granu locytes (promyelocytes, myelocytes and metamyelocytes) > 1% indicates that a LEFT SHIFT is Present. MCH (RBC) [Entitic mass] 27.9 pg 27.0-32.0 [facility] Work Phone: [phone] Nucleated RBC/100 WBC (Bld) [Ratio] 0 % 0-5 [facility] Work Phone: MCHC Auto (RBC) [Mass/Vol]on 09-06-2021 MCHC (RBC) [Mass/Vol] 32.2 g/dL 32-36 [facility] Work Phone: Mucus LM Ql (Urine sed)on Mucus Ql (Urine sed) 0 SEEN /hpf [facility] Work Phone: Nitrite Test strip Ql (U)on 09-06-2021 Nitrite Ql (U) Negative Negative [facility] Work Phone: No Panel Informationon 09-06 Estimated Creatinine Clearance Calc 34.98 ml/min [facility] Work Phone: Estimated GFR (MDRD) Amer 50 mL/min >60 [facility] Work Phone: Comment on above: GFR Calc Estimated GFR (MDRD) Non-Af Amer 41 mL/min >60 [facility] Work Phone: Comment on above: Non- GFR Calc Platelets bldon 09-06-2021 Platelets (Bld) [#/Vol] 185 10*3/uL 150-450 [facility] Work Phone: Protein Test strip Ql (U)on 09-06-2021 Protein Ql (U) 30 mg/dl Negative [facility] Work Phone: RBC morphologyon 09-06-2021 RBC morphology finding Nom (Bld) NORM C+C NORMAL NORM C&C [facility] Work Phone: Serum or plasma albumin arpit urement (mass/volume)on 09-06-2021 Albumin [Mass/Vol] 3.8 g/dL 3.2-5.0 [facility] Work Phone: Serum or plasma albumin/glob ulin mass ratioon 09-06-2021 Albumin/Globulin [Mass ratio] 1.0 {ratio} 0.9-2.4 [facility] Work Phone: Serum or plasma calcium arpit urement (mass/volume)on 09-06-2021 Calcium [Mass/Vol] 9.6 mg/dL 8.5-10.1 [facility] Work Phone: Serum or plasma creatinine m easurement (mass/volume)on 09-06-2021 Creatinine [Mass/Vol] 1.71 mg/dL 0.70-1.30 [facility] Work Phone: Comment on above: The validity of the calculated GFR & GFRAA in patients over 70 years has not been determined. Clinical correlation is essential. Serum or plasma urea nitroge n measurement (mass/volume)on 09-06-2021 Urea nitrogen [Mass/Vol] 37 mg/dL 7-18 [facility] Work Phone: Squamous epithelial cells de tection in urine sediment by light microscopyon 09-06-2021 Epithelial cells.squamous LM Ql (Urine sed) 0-5 SEEN /hpf [facility] Work Phone: Thin prep Papanicolaou smear with manual screeningon 09-06-2021 Thin prep Papanicolaou smear with manual screening 19 U/L 15-37 [facility] Work Phone: Thin prep Papanicolaou smear with manual screening 7 5-15 [facility] Work Phone: Urine blood detectionon - RBC Ql (U) 25 /ul Negative [facility] Work Phone: RBC Ql (U) 0-5 SEEN /hpf [facility] Work Phone: Urine clarityon 09-06-2021 Clarity (U) Clear Clear [facility] Work Phone: Urine color determinationon 09-06-2021 Color (U) Yellow Yellow [facility] Work Phone: Urine glucose detectionon Glucose Ql (U) Normal mg/dl Normal [facility] Work Phone: Urine leukocyte esterase det ection by dipstickon 09-06-2021 Leukocyte esterase Test strip Ql (U) Negative Negative [facility] Work Phone: Urine pHon 09-06-2021 pH (U) 5.0 [pH] [facility] Work Phone: Urine sediment bacteria coun t by microscopy (number/high power field)on 09-06-2021 Bacteria LM.HPF (Urine sed) [#/Area] RARE /hpf None Seen [facility] Work Phone: Urine specific gravity measu rementon 09-06-2021 Specific gravity (U) [Rel density] 1.025 [facility] Work Phone: Urobilinogen Auto test strip Ql (U)on 09-06-2021 Urobilinogen Ql (U) Normal mg/dl Normal [facility] Work Phone: UA DIP, URINE (POC)on 2021 BILIRUBIN UA (POCT) Negative Negative [facility] CLARITY UA (POCT) Clear [facility] COLOR UA (POCT) Yellow [facility] GLUCOSE UA (POCT) Negative Negative mg/dL [facility] HEMOGLOBIN/BLOOD UA (POCT) Negative Negative [facility] KETONE UA (POCT) Negative Negative mg/dL [facility] LEUKOCYTES UA (POCT) Negative Negative [facility] NITRITE UA (POCT) Negative Negative [facility] PH UA (POCT) 5.5 4.5 - 8.0 [facility] Protein Ql (U) Negative Negative mg/dL [facility] SPECIFIC GRAVITY UA (POCT) 1.010 1.005 - 1.030 [facility] UROBILINOGEN UA (POCT) 0.2 E.U./dL Normal E.U./dL [facility] CBC panel Auto (Bld)on 08-08 Erythrocyte distribution width (RBC) [Ratio] 13.6 % 11.5 - 15.0 % [facility] Hematocrit (Bld) [Volume fraction] 48.5 % 39.0 - 51.0 % [facility] Hemoglobin (Bld) [Mass/Vol] 15.7 g/dL 13.0 - 17.0 g/dL [facility] MCH (RBC) [Entitic mass] 27.8 pg 26.0 - 34.0 pg [facility] MCHC (RBC) [Mass/Vol] 32.4 g/dL 30.5 - 36.0 g/dL [facility] MCV (RBC) [Entitic vol] 86.0 fL 80.0 - 100.0 fL [facility] Nucleated RBC (Bld) [#/Vol] 10*3/uL <0.01 k/uL [facility] Platelet mean volume (Bld) [Entitic vol] 9.8 fL 9.0 - 12.7 fL [facility] Platelets (Bld) [#/Vol] 211 10*3/uL 150 - 400 k/uL [facility] RBC (Bld) [#/Vol] 5.64 10*6/uL 4.20 - 6.0 0 m/uL [facility] WBC (Bld) [#/Vol] 6.62 10*3/uL 3.70 - 11. 00 k/uL [facility] Absolute lymphocyte counton 05-13-2021 Lymphocytes Auto (Unsp spec) [#/Vol] 0.35 10*3/uL 0.83-4.51 [facility] Work Phone: Basophil percentageon 2021 Basophil percentage 0 SEEN /hpf [facility] Work Phone: Basophils/100 WBC (Bld) 0.2 % 0-1 [facility] Work Phone: Bilirubin [Mass/Vol] 2.20 mg/dL 0.20-1.00 [facility] Work Phone: [phone] Comment on above: For patients on eltr ombopag therapy, use of Dimension [place] TBIL is not recommended. Chloride [Moles/Vol] 105 mmol/L 98-107 [facility] Work Phone: [phone] Eosinophils/100 WBC (Bld) 0.0 % 0-5 [facility] Work Phone: [phone] Glucose [Mass/Vol] 199 mg/dL 74-106 [facility] Work Phone: [phone] Comment on above: Fasting Glucose resu lt greater than or equal to 126 mg/dL suggests DIABETES MELLITUS per A.D.A. criteria. Neutrophils (Bld) [#/Vol] 11.5 10*3/uL 2.0-7.7 [facility] Work Phone: Neutrophils/100 WBC (Bld) 90.3 % 47-70 [facility] Work Phone: Potassium [Moles/Vol] 4.3 mmol/L 3.5-5.1 [facility] Work Phone: Protein [Mass/Vol] 7.9 g/dL 6.4-8.2 [facility] Work Phone: Sodium [Moles/Vol] 135 mmol/L 136-145 [facility] Work Phone: WBC (Bld) [#/Vol] 12.8 10*3/uL 4.4-11.0 [facility] Work Phone: Bilirubin Test strip Ql (U)o n 05-13-2021 Bilirubin Ql (U) Negative Negative [facility] Work Phone: Blood erythrocytes count (nu mber/volume)on 05-13-2021 RBC (Bld) [#/Vol] 5.55 10*6/uL 4.6-6.2 [facility] Work Phone: Blood hemoglobin measurement (mass/volume)on 05-13-2021 Hemoglobin (Bld) [Mass/Vol] 15.9 g/dL 13.0-16.5 [facility] Work Phone: Blood lymphocytes/100 leukoc yteson 05-13-2021 Lymphocytes/100 WBC (Bld) 2.7 % 19-41 [facility] Work Phone: [phone] Blood monocytes/100 leukocyt eson 05-13-2021 Monocytes/100 WBC (Bld) 6.3 % 0-10 [facility] Work Phone: Blood platelet mean volumeon 05-13-2021 Platelet mean volume (Bld) [Entitic vol] 10.7 fL 6.2-12.0 [facility] Work Phone: Determination of erythrocyte mean corpuscular volume (MCV)on 05-13-2021 MCV (RBC) [Entitic vol] 85.0 fL 80-94 [facility] Work Phone: Hematocrit Auto (Bld) [Volum e fraction]on 05-13-2021 Hematocrit (Bld) [Volume fraction] 47.2 % 40-54 [facility] Work Phone: Ketones Test strip Ql (U)on 05-13-2021 Ketones Ql (U) 50 mg/dl Negative [facility] Work Phone: Laboratory - Chemistry and C hemistry - challengeon 05-13-2021 ALP [Catalytic activity/Vol] 71 U/L 45-117 [facility] Work Phone: ALT [Catalytic activity/Vol] 43 U/L 16-61 [facility] Work Phone: CO2 [Moles/Vol] 21.0 mmol/L 21.0-32.0 [facility] Work Phone: Globulin (S) [Mass/Vol] 4.6 g/dL 2.2-4.2 [facility] Work Phone: Lipase [Catalytic activity/Vol] 83 U/L 73-393 [facility] Work Phone: Urea nitrogen/Creatinine [Mass ratio] 21.0 mg/mg 10-20 [facility] Work Phone: Laboratory - Hematology and Cell countson 05-13-2021 Erythrocyte distribution width (RBC) [Entitic vol] 39.2 fL 35.1-43.9 [facility] Work Phone: Erythrocyte distribution width (RBC) [Ratio] 12.7 % 11.6-14.6 [facility] Work Phone: Immature granulocytes/100 WBC (Bld) 0.500 % 0.0-0.9 [facility] Work Phone: Comment on above: IG% - Immature Granu locytes (promyelocytes, myelocytes and metamyelocytes) > 1% indicates that a LEFT SHIFT is Present. MCH (RBC) [Entitic mass] 28.6 pg 27.0-32.0 [facility] Work Phone: Nucleated RBC/100 WBC (Bld) [Ratio] 0 % 0-5 [facility] Work Phone: MCHC Auto (RBC) [Mass/Vol]on 05-13-2021 MCHC (RBC) [Mass/Vol] 33.7 g/dL 32-36 [facility] Work Phone: Mucus LM Ql (Urine sed)on Mucus Ql (Urine sed) 0 SEEN /hpf [facility] Work Phone: Nitrite Test strip Ql (U)on 05-13-2021 Nitrite Ql (U) Negative Negative [facility] Work Phone: No Panel Informationon 05-13 D-Dimer Quantitative (PE/DVT) 1.88 FEU/ug/m 0.27-0.49 [facility] Work Phone: Comment on above: D-Dimer ELEVATED (>0 .49): Additional studies and clinicalassessments are indicated to conclude diagnosis of:Deep Vein Thrombosis (DVT) or Pulmonary Embolism (PE) Estimated Creatinine Clearance Calc 36.93 ml/min [facility] Work Phone: Estimated GFR (MDRD) Amer 53 mL/min >60 [facility] Work Phone: Comment on above: GFR Calc Estimated GFR (MDRD) Non-Af Amer 44 mL/min >60 [facility] Work Phone: Comment on above: Non- GFR Calc Troponin I High Sensitivity 8 pg/mL 3.0-78.0 [facility] Work Phone: Comment on above: Please Note: New Erin t Units and Gender Specific Reference Ranges. For more information see Policy Stat Procedure [place] High Sensitivity Troponin (TNIH) and attachments. Platelets bldon 05-13-2021 Platelets (Bld) [#/Vol] 191 10*3/uL 150-450 [facility] Work Phone: Protein Test strip Ql (U)on 05-13-2021 Protein Ql (U) Negative Negative [facility] Work Phone: Serum or plasma albumin arpit urement (mass/volume)on 05-13-2021 Albumin [Mass/Vol] 3.3 g/dL 3.2-5.0 [facility] Work Phone: Serum or plasma albumin/glob ulin mass ratioon 05-13-2021 Albumin/Globulin [Mass ratio] 0.7 {ratio} 0.9-2.4 [facility] Work Phone: Serum or plasma calcium arpit urement (mass/volume)on 05-13-2021 Calcium [Mass/Vol] 9.1 mg/dL 8.5-10.1 [facility] Work Phone: Serum or plasma creatinine m easurement (mass/volume)on 05-13-2021 Creatinine [Mass/Vol] 1.62 mg/dL 0.70-1.30 [facility] Work Phone: Comment on above: The validity of the calculated GFR & GFRAA in patients over 70 years has not been determined. Clinical correlation is essential. Serum or plasma urea nitroge n measurement (mass/volume)on 05-13-2021 Urea nitrogen [Mass/Vol] 34 mg/dL 7-18 [facility] Work Phone: Squamous epithelial cells de tection in urine sediment by light microscopyon 05-13-2021 Epithelial cells.squamous LM Ql (Urine sed) 0-5 SEEN /hpf [facility] Work Phone: Thin prep Papanicolaou smear with manual screeningon 05-13-2021 Thin prep Papanicolaou smear with manual screening 30 U/L 15-37 [facility] Work Phone: Thin prep Papanicolaou smear with manual screening 9 5-15 [facility] Work Phone: Urine blood detectionon 02- RBC Ql (U) 10 /ul Negative [facility] Work Phone: RBC Ql (U) 0 SEEN /hpf [facility] Work Phone: Urine clarityon 05-13-2021 Clarity (U) Clear Clear [facility] Work Phone: Urine color determinationon 05-13-2021 Color (U) Yellow Yellow [facility] Work Phone: Urine glucose detectionon Glucose Ql (U) Normal mg/dl Normal [facility] Work Phone: Urine leukocyte esterase det ection by dipstickon 05-13-2021 Leukocyte esterase Test strip Ql (U) 100 /ul Negative [facility] Work Phone: Urine pHon 05-13-2021 pH (U) 5.0 [pH] [facility] Work Phone: Urine sediment bacteria coun t by microscopy (number/high power field)on 05-13-2021 Bacteria LM.HPF (Urine sed) [#/Area] 0 /[HPF] None Seen [facility] Work Phone: Urine specific gravity measu rementon 05-13-2021 Specific gravity (U) [Rel density] 1.020 [facility] Work Phone: Urobilinogen Auto test strip Ql (U)on 05-13-2021 Urobilinogen Ql (U) Normal mg/dl Normal [facility] Work Phone: CNOVon 06-26-2018 CNOV Office Visit (AGCARDPHRA) -------- RENETTA PINK ([id number]) 1940 M Date Time Provider Department 3/20/19 11:20 AM JUAN MANUEL ALVARADO During your visit today, we recorded the following information about you: Pulse Blood pressure Weight Height 61/minute 142/80 86.2 kg 1.778 m Juan Manuel Alvarado MD 06/26/2018 1:19 PM Signed PRIMARY CARE PHYSICIAN: Jenae Savage MD [address] [place] [address] REFERRING PHYSICIAN: Ralph Garcia MD ([facility]) [address] [address] Patient Care Team: Jenae Savage as PCP - General (Family Practice) Ralph Garcia as Specialty Network Systems Engineer (Cardiology) Juan Manuel Alvarado as Specialty Network Systems Engineer (Cardiology) CHIEF COMPLAINT: Evaluation of arrhythmia HISTORY OF PRESENT ILLNESS: Mr. Pink is a 77 year old male who presents today with his for evaluation of arrhythmia. He states that he has been and continues to be very active. 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 He exercises frequently, such as taking long walks with his . In mid May this year, he experienced an episode of loss of consciousness. He states he had worked hard hauling [employer] in the morning, and then he took [...] himself very well hydrated. He presented to [facility] ER. An EKG revealed mild tachycardia that was interpreted as junctional tachycardia. He was evaluated by a medicare nurse, Dr. Garcia. An echocardiogram was unremarkable. An [...] Laterality Date - COLONOSCOP W/ OR W/O BRS SPEC 03/18/2001 Colonoscopy - COLONOSCOP W/ OR W/O BRSH SPEC 10/24/12 Colonoscopy - COLONOSCOPY W/BX 04/24/2006 [...] EXAMINATION: BP 142/80 Pulse 61 Ht 5' 10" (1.78m) Wt 190 lb (86.2kg) SpO2 98% [...] Sinus bradycardia 54 bpm; first-degree AV block (FL 286 ms); incomplete right bundle branch block [...] healthcare provider's instructions for treatment. Developed by [employer]. Published by [employer]. Copyright ?2013 [employer] and/or one of its subsidiaries. All rights reserved. Referring Provider: RALPH GARCIA [[id number]] Allergies As of Date: 06/26/2018 (No Known Allergies) Date Reviewed: 06/26/2018 Reviewed by: Juan Manuel Alvarado - Fully Assessed Reason for Visit: New Patient [172] Cmt: ref from Dr. Garcia for SVT Primary Visit Diagnosis:Syncope and collapse [R55] Other Visit Diagnoses:First degree atrioventricular block [I44.0] SVT (supraventricular tachycardia) ([facility]) [I47.1] Order(s):ECG B/O W INTERP (MED OFFICE) [ECG06] Order #: [id number] Prescriptions as of 06/26/2018 Sig: SILDENAFIL (ANTIHYPERTENSIVE)* [...] healthcare provider's instructions for treatment. Developed by [employer]. Published by [employer]. Copyright ?2013 [employer] and/or one of its subsidiaries. All rights reserved. Visit Notes: >> Imani Parker Wed Jun 26, 2018 11:21 AM Status: Signed No [...] by JUAN MANUEL ALVARADO MD on 06/26/18 [facility] PROGRESSon 06-26-2018 Protein mass conc HNO ID: [id number] Author: Juan Manuel Alvarado Service: ? Author Type: Physician Type: Progress Notes Filed: 06/26/2018 1:19 PM Note Text: PRIMARY CARE PHYSICIAN: Jenae Savage MD [address] [place] [address] REFERRING PHYSICIAN: Ralph Garcia MD ([facility]) [address] [place] [id number] Patient Care Team: Jenae Savage as PCP - General (Family Practice) Ralph Garcia as Specialty Network Systems Engineer (Cardiology) Juan Manuel Alvarado as Specialty Network Systems Engineer (Cardiology) CHIEF COMPLAINT: Evaluation of arrhythmia HISTORY OF PRESENT ILLNESS: Mr. Pink is a 77 year old male who presents today with his for evaluation of arrhythmia. He states that he has been and continues to be very active. 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 He exercises frequently, such as taking long [...] himself very well hydrated. He presented to [facility] ER. An EKG revealed mild tachycardia that was interpreted as junctional tachycardia. He was evaluated by a medicare nurse, Dr. Garcia. An echocardiogram was unremarkable. An [...] Laterality Date - COLONOSCOP W/ OR W/O [facility] SPEC 03/18/2001 Colonoscopy - COLONOSCOP W/ OR W/O [facility] SPEC 10/24/12 Colonoscopy - COLONOSCOPY W/BX 04/24/2006 [...] EXAMINATION: BP 142/80 Pulse 61 Ht 5' 10" (1.78m) Wt 190 lb (86.2kg) SpO2 98% [...] Sinus bradycardia 54 bpm; first-degree AV block (FL 286 ms); incomplete right bundle branch block [...] previous T wave) 3. SVT (supraventricular tachycardia) ([facility]) - ICD9: 427.89, ICD10: I47.1 Unclear if [...] Garcia's discretion. Juan Manuel Alvarado MD [facility]25/2018 [facility] C[facility] Telephone (FVPRAD) Andry PINK ([id number]) 1940 MDate Time Provider Department04/23/17 ORTIZ MEZA During your visit today, we recorded the following information about you:Ortiz Meza MD 04/23/2017 8:58 AM [id number] is low riskGood newsLets have him see Amy in one year with Ayanna Maki PA-C 04/23/2017 9:03 AM SignedWicasimiro send message in [employer].Allergies As of Date: 04/23/2017(No Known Allergies)Date Reviewed: [...] Status:Closed by ORTIZ MEZA MD on 04/23/17 [facility] Vital Signs Date Time Vital Sign Value Performing Clinician Facility 12-22-2024 [id number] Body height 178 cm [facility] Work Phone: [facility] 12-22-2024 14:17-0400 Body mass index (BMI) [Ratio] 27.49 kg/m2 Gary [facility] Work Phone: [facility] 12-22-2024 14:17-0400 Body temperature 97.81 [degF] Gary [employer] Work Phone: [facility] 12-22-2024 14:17-0400 Body weight 87.09 kg Gary [employer] Work Phone: [facility] 12-22-2024 14:17-0400 Diastolic blood pressure 75 mm[Hg] Gary [employer] Work Phone: [facility] 12-22-2024 14:17-0400 Heart rate 68 /min Gary [facility] Work Phone: [facility] 12-22-2024 14:17-0400 SaO2% (BldA) [Mass fraction] 99 % Gary Dis[employer] Work Phone: [facility] 12-22-2024 14:17-0400 Systolic blood pressure 135 mm[Hg] Gary Dispopi DO Work Phone: [facility] 12-01-2024 13:22-0400 Diastolic blood pressure 71 mm[Hg] Rafael James CHILDCARE AIDE.INSTALLATION COORDINATOR Work Phone: [facility] 12-01-2024 13:22-0400 Heart rate 73 /min Rafael Ramirez CHILDCARE AIDE.INSTALLATION COORDINATOR Work Phone: [facility] 12-01-2024 13:22-0400 SaO2% (BldA) [Mass fraction] 98 % Rafael Ramirez CHILDCARE AIDE.INSTALLATION COORDINATOR Work Phone: [facility] 12-01-2024 13:22-0400 Systolic blood pressure 124 mm[Hg] Rafael Ramirez CHILDCARE AIDE.INSTALLATION COORDINATOR Work Phone: [facility] 08-19-2024 14:52-0400 Body height 178 cm Ángel Maditz DO Work Phone: [facility] 08-19-2024 14:52-0400 Body mass index (BMI) [Ratio] 27.05 kg/m2 Ángel Maditz DO Work Phone: [facility] 08-19-2024 14:52-0400 Body weight 85.7 kg Ángel Maditz DO Work Phone: [facility] 08-19-2024 14:52-0400 Diastolic blood pressure 69 mm[Hg] Ángel Maditz DO Work Phone: [facility] 08-19-2024 14:52-0400 Heart rate 65 /min Ángel Maditz DO Work Phone: [facility] 08-19-2024 14:52-0400 Systolic blood pressure 146 mm[Hg] Ángel Maditz DO Work Phone: [facility] 05-30-2024 13:10-0500 Diastolic blood pressure 74 mm[Hg] Rafael James CHILDCARE AIDE.INSTALLATION COORDINATOR Work Phone: [facility] 05-30-2024 13:10-0500 Systolic blood pressure 148 mm[Hg] Rafael James CHILDCARE AIDE.INSTALLATION COORDINATOR Work Phone: [facility] 05-30-2024 12:46-0500 Body mass index (BMI) [Ratio] 27.06 kg/m2 Rafael Ramirez CHILDCARE AIDE.INSTALLATION COORDINATOR Work Phone: [facility] 05-30-2024 12:46-0500 Body weight 85.73 kg Rafael Ramirez CHILDCARE AIDE.INSTALLATION COORDINATOR Work Phone: [facility] 05-30-2024 12:46-0500 Heart rate 61 /min Rafael James CHILDCARE AIDE.INSTALLATION COORDINATOR Work Phone: [facility] 05-30-2024 12:46-0500 Respiratory rate 16 /min Rafael James CHILDCARE AIDE.INSTALLATION COORDINATOR Work Phone: [facility] 05-30-2024 12:46-0500 SaO2% (BldA) [Mass fraction] 98 % Rafael Ramirez CHILDCARE AIDE.INSTALLATION COORDINATOR Work Phone: [facility] 12-31-2023 14:17-0400 Body mass index (BMI) [Ratio] 27.34 kg/m2 Gary Masci DO Work Phone: [facility] 12-31-2023 14:17-0400 Body temperature 98.2 [degF] Gary Masci DO Work Phone: [facility] 12-31-2023 14:17-0400 Body weight 86.64 kg Gary Masci DO Work Phone: [facility] 12-31-2023 14:17-0400 Diastolic blood pressure 77 mm[Hg] Gary Masci DO Work Phone: [facility] 12-31-2023 14:17-0400 Heart rate 53 /min Gary Masci DO Work Phone: [facility] 12-31-2023 14:17-0400 SaO2% (BldA) [Mass fraction] 98 % Gary Masci DO Work Phone: [facility] 12-31-2023 14:17-0400 Systolic blood pressure 151 mm[Hg] Gary Masci DO Work Phone: [facility] 11-23-2023 13:04-0400 Body mass index (BMI) [Ratio] 27.06 kg/m2 Rafael James CHILDCARE AIDE.INSTALLATION COORDINATOR Work Phone: [facility] 11-23-2023 13:04-0400 Body weight 85.73 kg Rafael Ramirez CHILDCARE AIDE.INSTALLATION COORDINATOR Work Phone: [facility] 11-23-2023 13:04-0400 Diastolic blood pressure 60 mm[Hg] Rafael James CHILDCARE AIDE.INSTALLATION COORDINATOR Work Phone: [facility] 11-23-2023 13:04-0400 Heart rate 52 /min Rafael James CHILDCARE AIDE.INSTALLATION COORDINATOR Work Phone: [facility] 11-23-2023 13:04-0400 Respiratory rate 16 /min Rafael James CHILDCARE AIDE.INSTALLATION COORDINATOR Work Phone: [facility] 11-23-2023 13:04-0400 SaO2% (BldA) [Mass fraction] 98 % Rafael Ramirez CHILDCARE AIDE.INSTALLATION COORDINATOR Work Phone: [facility] 11-23-2023 13:04-0400 Systolic blood pressure 112 mm[Hg] Rafael James CHILDCARE AIDE.INSTALLATION COORDINATOR Work Phone: [facility] 06-29-2023 13:07-0400 Body temperature 98.71 [degF] Ginger Khan Work Phone: [facility] 06-29-2023 13:07-0400 Body weight 86.18 kg Ginger Khan Work Phone: [facility] 06-29-2023 13:07-0400 Diastolic blood pressure 76 mm[Hg] Ginger Khan Work Phone: [facility] 06-29-2023 13:07-0400 Heart rate 59 /min Ginger Khan Work Phone: [facility] 06-29-2023 13:07-0400 SaO2% (BldA) [Mass fraction] 98 % Ginger Khan Work Phone: [facility] 06-29-2023 13:07-0400 Systolic blood pressure 164 mm[Hg] Ginger Khan Work Phone: [facility] 06-11-2023 10:28-0500 Body weight 86.3 kg Ángel Maditz DO Work Phone: [facility] 06-11-2023 10:28-0500 Diastolic blood pressure 76 mm[Hg] Ángel Maditz DO Work Phone: [facility] 06-11-2023 10:28-0500 Heart rate 58 /min Ángel Maditz DO Work Phone: [facility] 06-11-2023 10:28-0500 Respiratory rate 16 /min Ángel Maditz DO Work Phone: [facility] 06-11-2023 10:28-0500 Systolic blood pressure 153 mm[Hg] Ángel Maditz DO Work Phone: [facility] 05-25-2023 13:09-0500 Diastolic blood pressure 80 mm[Hg] Rafael James CHILDCARE AIDE.INSTALLATION COORDINATOR Work Phone: [facility] 05-25-2023 13:09-0500 Systolic blood pressure 134 mm[Hg] Rafael James CHILDCARE AIDE.INSTALLATION COORDINATOR Work Phone: [facility] 05-25-2023 12:37-0500 Body weight 85.09 kg Rafael James CHILDCARE AIDE.INSTALLATION COORDINATOR Work Phone: [facility] 05-25-2023 12:37-0500 Heart rate 57 /min Rafael James CHILDCARE AIDE.INSTALLATION COORDINATOR Work Phone: [facility] 05-25-2023 12:37-0500 Respiratory rate 16 /min Rafael James CHILDCARE AIDE.INSTALLATION COORDINATOR Work Phone: [facility] 05-25-2023 12:37-0500 SaO2% (BldA) [Mass fraction] 97 % Rafael James CHILDCARE AIDE.INSTALLATION COORDINATOR Work Phone: [facility] 12-05-2022 11:07-0400 Body height 178 cm Gary Masci DO Work Phone: [facility] 12-05-2022 11:07-0400 Body temperature 98.4 [degF] Gary Masci DO Work Phone: [facility] 12-05-2022 11:07-0400 Body weight 85.05 kg Gary Masci DO Work Phone: [facility] 12-05-2022 11:07-0400 Diastolic blood pressure 70 mm[Hg] Gary Masci DO Work Phone: [facility] 12-05-2022 11:07-0400 Heart rate 60 /min Gary Masci DO Work Phone: [facility] 12-05-2022 11:07-0400 SaO2% (BldA) [Mass fraction] 98 % Gary Peteri DO Work Phone: [facility] 12-05-2022 11:07-0400 Systolic blood pressure 149 mm[Hg] Gary Masci DO Work Phone: [facility] 11-24-2022 14:13-0400 Diastolic blood pressure 68 mm[Hg] Rafael James CHILDCARE AIDE.INSTALLATION COORDINATOR Work Phone: [facility] 11-24-2022 14:13-0400 Systolic blood pressure 118 mm[Hg] Rafael James CHILDCARE AIDE.INSTALLATION COORDINATOR Work Phone: [facility] 11-24-2022 13:34-0400 Body weight 85.82 kg Rafael James CHILDCARE AIDE.INSTALLATION COORDINATOR Work Phone: [facility] 11-24-2022 13:34-0400 Heart rate 56 /min Rafael James CHILDCARE AIDE.INSTALLATION COORDINATOR Work Phone: [facility] 11-24-2022 13:34-0400 Respiratory rate 16 /min Rafael James CHILDCARE AIDE.INSTALLATION COORDINATOR Work Phone: [facility] 11-24-2022 13:34-0400 SaO2% (BldA) [Mass fraction] 97 % Rafael James CHILDCARE AIDE.INSTALLATION COORDINATOR Work Phone: [facility] 09-07-2022 09:32-0400 Body weight 83.46 kg Elizabeth Tannhof CHILDCARE AIDE.INSTALLATION COORDINATOR Work Phone: [facility] 09-07-2022 09:32-0400 Diastolic blood pressure 60 mm[Hg] Elizabeth Tannhof CHILDCARE AIDE.INSTALLATION COORDINATOR Work Phone: [facility] 09-07-2022 09:32-0400 Heart rate 63 /min Elizabeth Tannhof CHILDCARE AIDE.INSTALLATION COORDINATOR Work Phone: [facility] 09-07-2022 09:32-0400 Respiratory rate 16 /min Elizabeth Tannhof CHILDCARE AIDE.INSTALLATION COORDINATOR Work Phone: [facility] 09-07-2022 09:32-0400 SaO2% (BldA) [Mass fraction] 96 % Elizabeth Tannhof CHILDCARE AIDE.INSTALLATION COORDINATOR Work Phone: [facility] 09-07-2022 09:32-0400 Systolic blood pressure 134 mm[Hg] Elizabeth Tannhof CHILDCARE AIDE.INSTALLATION COORDINATOR Work Phone: [facility] 05-26-2022 14:27-0500 Diastolic blood pressure 78 mm[Hg] Rafael James CHILDCARE AIDE.INSTALLATION COORDINATOR Work Phone: [facility] 05-26-2022 14:27-0500 Systolic blood pressure 120 mm[Hg] Rafael James CHILDCARE AIDE.INSTALLATION COORDINATOR Work Phone: [facility] 05-26-2022 13:33-0500 Body temperature 97.81 [degF] Rafale James CHILDCARE AIDE.INSTALLATION COORDINATOR Work Phone: [facility] 05-26-2022 13:33-0500 Body weight 85.28 kg Rafael James CHILDCARE AIDE.INSTALLATION COORDINATOR Work Phone: [facility] 05-26-2022 13:33-0500 Heart rate 61 /min Rafael James CHILDCARE AIDE.INSTALLATION COORDINATOR Work Phone: [facility] 05-26-2022 13:33-0500 Respiratory rate 16 /min Rafael James CHILDCARE AIDE.INSTALLATION COORDINATOR Work Phone: [facility] 05-26-2022 13:33-0500 SaO2% (BldA) [Mass fraction] 98 % Rafael Ramirez APRN.INSTALLATION COORDINATOR Work Phone: [facility] 05-05-2022 10:00-0500 Body height 177.7 cm Ángel Maditz DO Work Phone: [facility] 05-05-2022 10:00-0500 Body weight 84.82 kg Ángel Maditz DO Work Phone: [facility] 05-05-2022 10:00-0500 Diastolic blood pressure 65 mm[Hg] Ángel Maditz DO Work Phone: [facility] 05-05-2022 10:00-0500 Heart rate 58 /min Ángel Maditz DO Work Phone: [facility] 05-05-2022 10:00-0500 Systolic blood pressure 149 mm[Hg] Ángel Maditz DO Work Phone: [facility] 03-08-2022 11:03-0500 Body temperature 97.59 [degF] Doyle Rankin MD Work Phone: [facility] 03-08-2022 11:03-0500 Body weight 84.82 kg Doyle Rankin MD Work Phone: [facility] 03-08-2022 11:03-0500 Diastolic blood pressure 65 mm[Hg] Doyle Rankin MD Work Phone: [facility] 03-08-2022 11:03-0500 Heart rate 53 /min Doyle Rankin MD Work Phone: [facility] 03-08-2022 11:03-0500 Respiratory rate 20 /min Doyle Rankin MD Work Phone: [facility] 03-08-2022 11:03-0500 SaO2% (BldA) [Mass fraction] 98 % Doyle Rankin MD Work Phone: [facility] 03-08-2022 11:03-0500 Systolic blood pressure 150 mm[Hg] Doyle Rankin MD Work Phone: [facility] 11-22-2021 13:03-0400 Body temperature 97.81 [degF] Rafael James CHILDCARE AIDE.INSTALLATION COORDINATOR Work Phone: [facility] 11-22-2021 13:03-0400 Body weight 85.28 kg Rafael James CHILDCARE AIDE.INSTALLATION COORDINATOR Work Phone: [facility] 11-22-2021 13:03-0400 Diastolic blood pressure 70 mm[Hg] Rafael James CHILDCARE AIDE.INSTALLATION COORDINATOR Work Phone: [facility] 11-22-2021 13:03-0400 Heart rate 74 /min Rafael James CHILDCARE AIDE.INSTALLATION COORDINATOR Work Phone: [facility] 11-22-2021 13:03-0400 Respiratory rate 14 /min Rafael James CHILDCARE AIDE.INSTALLATION COORDINATOR Work Phone: [facility] 11-22-2021 13:03-0400 Systolic blood pressure 122 mm[Hg] Rafael James CHILDCARE AIDE.INSTALLATION COORDINATOR Work Phone: [facility] 11-02-2021 13:45-0400 Body height 177.[address] Jenae Savage Work Phone: [facility] Work Phone: 11-02-2021 13:45-0400 Body mass index (BMI) [Ratio] 26.9 kg/m2 Dr. Jenae Savage Work Phone: [facility] Work Phone: 11-02-2021 13:45-0400 Body weight 85.[address] Jenae Savage Work Phone: [facility] Work Phone: 09-07-2021 00:38-0400 Diastolic blood pressure 71 mm[Hg] [facility] Work Phone: 09-07-2021 00:38-0400 Heart rate 64 /min [facility] Work Phone: 09-07-2021 00:38-0400 Respiratory rate 16 /min [facility] Work Phone: 09-07-2021 00:38-0400 SaO2% (BldA) [Mass fraction] 99 % [facility] Work Phone: 09-07-2021 00:38-0400 Systolic blood pressure 144 mm[Hg] [facility] Work Phone: 09-06-2021 21:36-0400 Body height 177.8 cm [facility] Work Phone: 09-06-2021 21:36-0400 Body mass index (BMI) [Ratio] 27.2 kg/m2 [facility] Work Phone: 09-06-2021 21:36-0400 Body temperature 97.8 [degF] [facility] Work Phone: 09-06-2021 21:36-0400 Body weight 86.18 kg [facility] Work Phone: 08-08-2021 11:00-0400 Diastolic blood pressure 71 mm[Hg] Ángel Maditz DO Work Phone: [facility] 08-08-2021 11:00-0400 Heart rate 57 /min Ángel Maditz DO Work Phone: [facility] 08-08-2021 11:00-0400 Systolic blood pressure 131 mm[Hg] Ángel Maditz DO Work Phone: [facility] 08-08-2021 10:55-0400 Body height 177.8 cm Ángel Maditz DO Work Phone: [facility] 08-08-2021 10:55-0400 Body weight 86.18 kg Ángel Maditz DO Work Phone: [facility] 08-08-2021 10:55-0400 Respiratory rate 12 /min Ángel Maditz DO Work Phone: [facility] 05-13-2021 10:07-0500 Body temperature 98.4 [degF] [facility] Work Phone: 05-13-2021 10:07-0500 Diastolic blood pressure 78 mm[Hg] [facility] Work Phone: 05-13-2021 10:07-0500 Heart rate 76 /min [facility] Work Phone: 05-13-2021 10:07-0500 Respiratory rate 18 /min [facility] Work Phone: 05-13-2021 10:07-0500 SaO2% (BldA) [Mass fraction] 97 % [facility] Work Phone: 05-13-2021 10:07-0500 Systolic blood pressure 130 mm[Hg] [facility] Work Phone: 05-13-2021 06:59-0500 Body mass index (BMI) [Ratio] 28.7 kg/m2 [facility] Work Phone: 05-13-2021 06:59-0500 Body weight 90.7 kg [facility] Work Phone: Encounters Encounter Date Encounter Type Care Provider Facility Start: 02-16-2025 End: 02-16-2025 ambulatory JANUSZ DAVENPORT Facility:[id number] Start: 02-12-2025 ambulatory BRISEYDA Ashraf y:[facility] Start: 02-11-2025 End: 02-11-2025 ambulatory Zane Martinez [place] [place] Start: 02-09-2025 End: 02-09-2025 ambulatory BRISEYDA DELGADO Facility:[facility] Start: 01-17-2025 End: 01-17-2025 ambulatory JENAE SAVAGE Facility:[facility] Start: 12-22-2024 End: 12-22-2024 Patient encounter procedure Gary Kelly DO Work Phone: Hematology/Oncology Start: 12-22-2024 End: 12-22-2024 ambulatory Gary Kelly DO Work Phone: Hematology/Oncology Comment on above: 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) Start: 12-17-2024 End: 12-17-2024 E-mail encounter from caregiver Rafael James CH Work Phone: Family [facility] [place] Start: 12-17-2024 End: 12-17-2024 Follow-up encounter Rafael Ramirez APRN.CNP Work Phone: [facility] [place] Comment on above: Lab Follow up Start: 12-16-2024 End: 12-16-2024 Orders Only Ángel Julio DO Work Phone: Kidney Medicine Comment on above: Chronic kidney disea se, unspecified CKD stage (Primary Dx) Start: 12-15-2024 End: 12-15-2024 [facility] Facility:[facility] Start: 12-01-2024 End: 12-01-2024 Patient encounter procedure Rafael Ramirez APRN.CNP Work Phone: [facility] [place] Comment on above: Type 2 diabetes melvi itus with stage 3 chronic kidney disease, without long-term current use of insulin, unspecified whether stage 3a or 3b CKD (HCC) (Primary Dx); Essential hypertension, benign; Stage 3b chronic kidney disease (HCC); Hyperlipidemia, unspecified hyperlipidemia type; Gastroesophageal reflux disease without esophagitis; Screening for depression; Encounter for screening examination for other mental health and behavioral disorders Start: 12-01-2024 End: 12-01-2024 [facility] Facility:[facility] Start: 11-26-2024 End: 11-26-2024 [facility] Facility:[facility] Start: 08-19-2024 End: 08-19-2024 Patient encounter procedure Ángel Julio DO Work Phone: Kidney Medicine Comment on above: Stage 3b chronic kid doretha disease (HCC) (Primary Dx); Anemia of renal disease; Secondary renal hyperparathyroidism (HCC); Primary hypertension Start: 08-19-2024 End: 08-19-2024 [facility] Facility:[facility] Start: 08-18-2024 End: 08-18-2024 Patient encounter procedure Janusz Davenport MD Work Phone: Urology Comment on above: BPH with obstruction /lower urinary tract symptoms (Primary Dx); ED (erectile dysfunction) of organic origin; Renal cyst; Left nephrolithiasis Start: 08-18-2024 End: 08-18-2024 ambulatory JANUSZ DAVENPORT Facility:[id number] Start: 08-04-2024 End: 08-04-2024 ambulatory JENAE SAVAGE Facility:[facility] Start: 05-30-2024 End: 05-30-2024 ambulatory JENAE SAVAGE Facility:[facility] Start: 05-30-2024 End: 05-30-2024 Office outpatient visit 25 minutes Rafael Ramirez APRN.CNP Work Phone: [facility] [place] Comment on above: Type 2 diabetes melvi itus with stage 3 chronic kidney disease, without long-term current use of insulin, unspecified whether stage 3a or 3b CKD (HCC) (Primary Dx); Essential hypertension, benign; Stage 3b chronic kidney disease (HCC); Hyperlipidemia, unspecified hyperlipidemia type; Ruptured cyst of kidney Start: 05-22-2024 End: 05-22-2024 ambulatory JENAE SAVAGE Facility:[facility] Start: 05-21-2024 End: 05-22-2024 Refill Jenae [place] MD Work Phone: [address] [place] [address] Comment on above: Refill Request Start: 05-15-2024 End: 05-15-2024 ambulatory Jenae Savage MD Work Phone: [facility] [place] Comment on above: ER visit yesterday f or a ruptured kidney cyst Start: 05-14-2024 End: 05-14-2024 [facility] Start: 03-11-2024 End: 03-11-2024 Telephone encounter Jenae Savage MD Work Phone: [facility] [place] Comment on above: Results Start: 03-04-2024 End: 03-04-2024 ambulatory JENAE SAVAGE Facility:[facility] Start: 03-04-2024 End: 03-04-2024 Subsequent hospital visit by physician [facility] (I-Stat/1.5t) Work Phone: Radiology Comment on above: Other specified diso rders of kidney and ureter [N28.89] Start: 02-20-2024 End: 02-20-2024 ambulatory JENAE SAVAGE Facility:[facility] Start: 02-20-2024 End: 02-20-2024 Nursing evaluation of patient and report Mi Nurse Work Phone: Family [facility] [place] Comment on above: Encounter for immuni zation Start: 02-19-2024 End: 02-19-2024 Subsequent hospital visit by physician [facility] Comment on above: Left nephrolithiasis [N20.0] Start: 02-19-2024 End: 02-19-2024 Patient encounter procedure Janusz Davenport MD Work Phone: Urology Comment on above: BPH with obstruction /lower urinary tract symptoms [N40.1, N13.8] (Primary Dx); ED (erectile dysfunction) of organic origin; Left nephrolithiasis Start: 02-19-2024 End: 02-19-2024 ambulatory JANUSZ DAVENPORT Facility:[id number] Start: 02-14-2024 End: 02-14-2024 ambulatory Jenae Savage MD Work Phone: [facility] [place] Comment on above: [facility] Start: 02-14-2024 End: 02-14-2024 Telephone encounter Jenae Savage MD Work Phone: [facility] [place] Comment on above: incidental finding o n CT Start: 02-13-2024 ambulatory Jose Pacheco Facility :[facility] Start: 02-04-2024 End: 02-04-2024 ambulatory Rafael Ramirez APRN.INSTALLATION COORDINATOR Work Phone: [facility] [place] Comment on above: renetta had a kidney stone Start: 01-14-2024 End: 01-14-2024 Telephone encounter Gary Kelyl DO Work Phone: Hematology/Oncology Comment on above: Results Start: 01-12-2024 End: 01-12-2024 Subsequent hospital visit by physician [facility] Work Phone: Radiology CT Scan Comment on above: 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] Start: 12-31-2023 End: 12-31-2023 ambulatory Gary Kelly DO Work Phone: Hematology/Oncology Comment on above: Monoclonal gammopath y (Primary Dx) Start: 12-31-2023 End: 12-31-2023 Patient encounter procedure Gary Kelly DO Work Phone: Hematology/Oncology Start: 12-06-2023 End: 12-06-2023 Telephone encounter Elizabeth Avila APRN.INSTALLATION COORDINATOR Work Phone: [facility] [place] Comment on above: Refill Request Start: 11-23-2023 ambulatory Rafael MCDONALD RN.INSTALLATION COORDINATOR Work Phone: [facility] [place] Comment on above: amlodipine Start: 11-23-2023 End: 11-23-2023 Office outpatient visit 25 minutes Rafael Ramirez APRN.INSTALLATION COORDINATOR Work Phone: [facility] [place] Comment on above: Type 2 diabetes melvi itus with stage 3 chronic kidney disease, without long-term current use of insulin, unspecified whether stage 3a or 3b CKD (HCC) (Primary Dx); Stage 3b chronic kidney disease (HCC); Hyperlipidemia, unspecified hyperlipidemia type; Essential hypertension, benign; Gastroesophageal reflux disease without esophagitis Start: 06-29-2023 End: 06-29-2023 ambulatory Ginger Khan Work Phone: Hematology/Oncology Comment on above: 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) Start: 06-29-2023 End: 06-29-2023 Patient encounter procedure Ginger Khan Work Phone: [facility] Start: 06-19-2023 Orders Only Gary Pedroza Work Phone: Hematology/Oncology Comment on above: 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) Start: 06-11-2023 End: 06-11-2023 Patient encounter procedure Ángel Julio DO Work Phone: Kidney Medicine Comment on above: Stage 3b chronic kid doretha disease (HCC) (Primary Dx); Anemia of renal disease; Secondary renal hyperparathyroidism (HCC); Primary hypertension; Hyperlipidemia, unspecified hyperlipidemia type; Benign prostatic hyperplasia without lower urinary tract symptoms Start: 05-25-2023 End: 05-25-2023 Office outpatient visit [...] disease without esophagitis Start: 05-22-2023 ambulatory Ángel Nori Pedroza Work Phone: Kidney Medicine Comment on above: up coming visit Start: 01-17-2023 End: 01-17-2023 ambulatory Immunization [facility] Nurse [place] Work Phone: [facility] [place] Start: 01-11-2023 End: 01-11-2023 Subsequent hospital visit by physician [facility] Work Phone: Radiology Comment on above: 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] Start: 12-05-2022 End: 12-05-2022 ambulatory Gary Kelly DO Work Phone: Hematology/Oncology Comment on above: 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) Start: 12-05-2022 End: 12-05-2022 Patient encounter procedure Gary Kelly DO Work Phone: [facility] Start: 11-24-2022 End: 11-24-2022 Office outpatient visit 25 minutes Rafael Ramirez APRN.CNP Work Phone: [facility] [place] Comment on above: Type 2 diabetes melvi itus without complication, without long- term current use of insulin (HCC) (Primary Dx); Stage 3b chronic kidney disease (HCC); Hyperlipidemia, unspecified hyperlipidemia type; Essential hypertension, benign; ED (erectile dysfunction) of organic origin Start: 09-19-2022 Telephone encounter Elizabeth Landeros abdirashid CHILDCARE AIDE.INSTALLATION COORDINATOR Work Phone: [facility] [place] Comment on above: Results (Chest Xray ) Start: 09-18-2022 End: 09-18-2022 Subsequent hospital visit by physician [facility] [place] Work Phone: Radiology Comment on above: Acute cough [R05.1] Start: 09-07-2022 End: 09-07-2022 Patient encounter procedure Elizabeth Avila CHILDCARE AIDE.INSTALLATION COORDINATOR Work Phone: [facility] [place] Comment on above: Seasonal allergies ( Primary Dx) Start: 09-05-2022 ambulatory Jenae garcia MD Work Phone: [facility] [place] Comment on above: schedule appt Start: 05-26-2022 End: 05-26-2022 Office outpatient visit 25 minutes Rafael Ramirez CHILDCARE AIDE.INSTALLATION COORDINATOR Work Phone: [facility] Comment on above: Stage 3b chronic kid [...] of unknown significance) Start: 04-05-2022 ambulatory Ángel Pedroza Work Phone: Kidney Medicine Comment on above: labs Start: 03-08-2022 End: 03-08-2022 ambulatory Doyle Rankin MD Work Phone: Hematology/Oncology Comment on above: 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) Start: 03-08-2022 End: 03-08-2022 Patient encounter procedure Doyle Rankin MD Work Phone: [facility] Start: 01-28-2022 End: 01-28-[address] Jenae Savage Work Phone: [facility] Start: 01-28-2022 End: 01-28-2022 ambulatory Immunization Clinic Nurse [place] Work Phone: [facility] Comment on above: Arrived Start: 01-11-2022 End: 01-11-2022 Patient encounter procedure Janusz [place] MD Work Phone: Urology Comment on above: Benign prostatic hyp erplasia without lower urinary tract symptoms (Primary Dx); Screening for genitourinary condition; Congenital multiple renal cysts; ED (erectile dysfunction) of organic origin; Stage 3b chronic kidney disease (HCC) Start: 11-22-2021 End: 11-22-2021 Office outpatient visit 25 minutes Rafael Ramirez APRN.INSTALLATION COORDINATOR Work Phone: [facility] Comment on above: Type 2 diabetes melvi itus without complication, without long- term current use of insulin (HCC) (Primary Dx); Hyperlipidemia, unspecified hyperlipidemia type; Stage 3b chronic kidney disease (HCC); Essential hypertension, benign; Acute pulmonary embolism, unspecified pulmonary embolism type, unspecified whether acute cor pulmonale present ([facility]); Dermatitis; Bilateral leg edema Start: 11-02-2021 End: 11-02-[address] Jenae Savage Work Phone: [facility] [facility] Start: 09-12-2021 ambulatory Rafael MCDONALD RN.INSTALLATION COORDINATOR Work Phone: [facility] Comment on above: stool sample Start: 09-09-2021 Telephone encounter Troy Stein MD Work Phone: [facility] Comment on above: Results; Orders Start: 09-07-2021 Telephone encounter Jenae henderson MD Work Phone: [facility] Comment on above: Patient Question; Or ders Start: 09-06-2021 End: 09-07-2021 Emergency department patient visit [facility] Start: 08-10-2021 Telephone encounter Ángel Finn tz DO Work Phone: Kidney Medicine Comment on [...] Essential hypertension; Hyperlipidemia, unspecified hyperlipidemia type Start: 05-13-2021 End: 05-13-2021 Emergency department patient visit [facility] Start: 06-26-2018 End: 06-26-2018 Patient encounter procedure JUAN MANUEL ALVARADO [facility] Start: 06-17-2018 Patient encounter procedure [facility] Procedures Date Procedure Procedure Detail Performing Clinician Start: 12-01-2024 Adult depression screening assessment Rafael Ramirez APRN.CNP Work Phone: Start: 08-18-2024 BLADDER SCAN Janusz Davenport MD Work Phone: Start: 08-18-2024 Urnls dip stick/tablet rgnt auto w/o microscopy Janusz Davenport MD Work Phone: Start: 02-19-2024 Radiologic exam abdomen 2 views Janusz Davenport MD Work Phone: Start: 02-19-2024 BLADDER SCAN Janusz Davenport MD Work Phone: Start: 02-19-2024 Urnls dip stick/tablet rgnt auto w/o microscopy Janusz Davenport MD Work Phone: Start: 01-17-2023 INFLUENZA VACCINE, PRSV FREE, AGE 65+ YR, HIGH DOSE, QUADRIVALENT (FLUZONE HIGH-DOSE) Mihai Carter MD Work Phone: Start: 01-11-2023 Us retroperitoneal real time w/image complete Janusz Davenport MD Work Phone: Start: 09-18-2022 Radiologic exam chest 2 views Elizabeth Avila APRN.INSTALLATION COORDINATOR Work Phone: Start: 01-28-2022 INFLUENZA SEASONAL QUADRIVALENT HIGH DOSE AGE 65+ Igor Beasley MD Work Phone: Start: 01-11-2022 Urnls dip stick/tablet rgnt auto w/o microscopy Janusz Davenport MD Work Phone: Start: 09-06-2021 Computed tomography of abdomen and pelvis with intravenous contrast Start: 08-10-2021 Urnls dip stick/tablet rgnt auto w/o microscopy Janusz Davenport MD Work Phone: Start: 05-13-2021 Computed tomography of abdomen and pelvis with intravenous contrast Start: 05-13-2021 CT angiography of chest with contrast Start: 05-13-2021 Plain chest X-ray Plan of Treatment Date Care Activity Detail Author Start: 03-08-2027 Urine microalbumin profile [facility] Start: 12-21-2025 End: 12-21-2025 ambulatory 12/21/2025 2:30 PM EDT Visit (SP) Office Hematology/Oncology [address] [place] [id number] Gary Kelly DO [address] [place] [id number] 1 YR OV/LABS 12/15* Hematology/Oncology Comment on above: 1 YR OV/LABS 12/15* Start: 12-15-2025 End: 12-15-2025 ambulatory 12/15/2025 10:00 AM EDT Results Only [facility] [address] [place] [id number] LAB [facility] Comment on above: LAB Start: 12-01-2025 Anxiety Screening Anxiety Screening [facility] Start: 12-01-2025 Depression Screening Depression Scre ening [facility] Start: 12-01-2025 Medicare Annual Well ness Visit Medicare Annual Wellness Visit [facility] Start: 11-26-2025 Hepatitis B surface antibody level LDL Cholesterol [facility] Start: 06-18-2025 End: 06-18-2025 Patient encounter procedure 06/18/2025 1:00 PM EDT Office Visit Kidney Medicine [address] [place] [address] Briseyda Delgado, CHILDCARE AIDE.INSTALLATION COORDINATOR [address] [place] [address] Follow up CKD stage 3b Kidney Medicine Comment on above: Follow up CKD stage 3b Start: 06-08-2025 End: 09-07-2025 CBC panel - Blood by Automated count COMPLETE BLOOD COUNT Lab Routine Chronic kidney disease, unspecified CKD stage Expected: 06/08/2025, Expires: 09/07/2025 [facility] Work Phone: Comment on above: Expected: 06/08/2025 , Expires: 09/07/2025 Start: 06-08-2025 End: 09-07-2025 Protein/Creatinine [Mass Ratio] in Urine PROTEIN / CREATININE RATIO Lab Routine Chronic kidney disease, unspecified CKD stage Expected: 06/08/2025, Expires: 09/07/2025 [facility] Comment on above: Expected: 06/08/2025 , Expires: 09/07/2025 Start: 06-08-2025 End: 09-07-2025 Renal function 2000 panel - Serum or Plasma RENAL FUNCTION PANEL Lab Routine Chronic kidney disease, unspecified CKD stage Expected: 06/08/2025, Expires: 09/07/2025 [facility] Comment on above: Expected: 06/08/2025 , Expires: 09/07/2025 Start: 06-08-2025 End: 09-07-2025 Urinalysis complete panel - Urine URINALYSIS, WITH MICROSCOPIC Lab Routine Chronic kidney disease, unspecified CKD stage Expected: 06/08/2025, Expires: 09/07/2025 [facility] Comment on above: Expected: 06/08/2025 , Expires: 09/07/2025 Start: 06-03-2025 End: 09-02-2025 CBC W Auto Differential panel - Blood COMPLETE BLOOD COUNT AND DIFFERENTIAL Lab Routine Type 2 diabetes 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, without long-term current use of insulin, unspecified whether stage 3a or 3b CKD (HCC) Essential hypertension, benign Expected: 06/03/2025, Expires: 09/02/2025 [facility] Work Phone: Comment on above: Expected: 06/03/2025 , Expires: 09/02/2025 Start: 06-03-2025 End: 09-02-2025 Comprehensive metabolic 2000 panel - Serum or Plasma COMPREHENSIVE METABOLIC PANEL Lab Routine Type 2 diabetes 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, without long-term current use of insulin, unspecified whether stage 3a or 3b CKD (HCC) Essential hypertension, benign Stage 3b chronic kidney disease (HCC) Hyperlipidemia, unspecified hyperlipidemia type Expected: 06/03/2025, Expires: 09/02/2025 [facility] Comment on above: Expected: 06/03/2025 , Expires: 09/02/2025 Start: 06-03-2025 End: 09-02-2025 Hemoglobin A1c in Blood HEMOGLOBIN A1C Lab Routine Type 2 diabetes 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, without long-term current use of insulin, unspecified whether stage 3a or 3b CKD (HCC) Expected: 06/03/2025, Expires: 09/02/2025 [facility] Comment on above: Expected: 06/03/2025 , Expires: 09/02/2025 Start: 06-03-2025 End: 09-02-2025 Lipid 1996 panel - Serum or Plasma LIPID PANEL, FASTING Lab Routine Type 2 diabetes 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, without long-term current use of insulin, unspecified whether stage 3a or 3b CKD (HCC) Hyperlipidemia, unspecified hyperlipidemia type Expected: 06/03/2025, Expires: 09/02/2025 [facility] Comment on above: Expected: 06/03/2025 , Expires: 09/02/2025 Start: 06-03-2025 End: 06-03-2025 Patient encounter procedure 06/03/2025 1:20 PM EST Office Visit Family Medicine [place] [address] [place] [address] Star Shannon MD [address] [facility] [place] [address] transfer care/6 month follow up [facility] [place] Comment on above: transfer care/6 lisa h follow up Start: 05-29-2025 Hemoglobin A1c measurement HbA1C [facility] Start: 05-22-2025 Hepatitis B screening Urine Al bumin:Creatinine Ratio [facility] Start: 05-22-2025 Hepatitis B surface antibody level LDL Cholesterol [facility] Start: 02-16-2025 End: 02-16-2025 Patient encounter procedure Urology Comment on above: 6 month follow up Start: 01-17-2025 End: 01-17-2025 Patient encounter procedure 01/17/2025 10:00 AM EDT Immunization [facility] [place] [address] [facility] [place] [address] [place], Immunization Clinic Nurse [address] [place] [place] [address] flu shot [facility] [place] Comment on above: flu shot Start: 12-22-2024 End: 12-22-2024 ambulatory 12/22/2024 2:30 PM EDT Visit (SP) Office Hematology/Oncology [address] [place] [address] Gary Kelly DO [address] [place] [address] 1 YR OV/LABS 12/15* Hematology/Oncology Comment on above: 1 YR OV/LABS 12/15* Start: 12-15-2024 End: 03-16-2025 Basic metabolic 2000 panel - Serum or Plasma BASIC METABOLIC PANEL Lab Routine Stage 3b chronic kidney disease (HCC) Expected: 12/15/2024 (Approximate), Expires: 03/16/2025 [facility] Comment on above: Expected: 12/15/2024 (Approximate), Expires: 03/16/2025 Start: 12-15-2024 End: 12-15-2024 ambulatory 12/15/2024 10:00 AM EDT Results Only Shi [facility] [address] [place] [address] CBC/CMP/Myeloma labs (no urine)* Shi [facility] Comment on above: CBC/CMP/Myeloma labs (no urine)* Start: 12-08-2024 Influenza vaccination Influenza Vacc ine (#1) [facility] Start: 12-01-2024 End: 12-01-2024 Patient encounter procedure Family Medicine Shi Comment on above: Medicare / 6 mos Start: 11-27-2024 End: 02-26-2025 Comprehensive metabolic 2000 panel - Serum or Plasma COMPREHENSIVE METABOLIC PANEL Lab Routine Essential hypertension, benign Stage 3b chronic kidney disease (HCC) Expected: 11/27/2024 (Approximate), Expires: 02/26/2025 [facility] Comment on above: Expected: 11/27/2024 (Approximate), Expires: 02/26/2025 Start: 11-27-2024 End: 02-26-2025 Hemoglobin A1c in Blood HEMOGLOBIN A1C Lab Routine Type 2 diabetes 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, without long-term current use of insulin, unspecified whether stage 3a or 3b CKD (HCC) Expected: 11/27/2024 (Approximate), Expires: 02/26/2025 [facility] Work Phone: Comment on above: Expected: 11/27/2024 (Approximate), Expires: 02/26/2025 Start: 11-27-2024 End: 02-26-2025 Lipid 1996 panel - Serum or Plasma LIPID PANEL BASIC Lab Routine Hyperlipidemia, unspecified hyperlipidemia type Expected: 11/27/2024 (Approximate), Expires: 02/26/2025 [facility] Comment on above: Expected: 11/27/2024 (Approximate), Expires: 02/26/2025 Start: 11-19-2024 Hemoglobin A1c measurement HbA1C [facility] Start: 11-15-2024 Hepatitis B surface antibody level LDL Cholesterol [facility] Start: 08-18-2024 End: 08-18-2024 Patient encounter procedure 08/18/2024 2:15 PM EDT Office Visit Urology [address] [place] [address] Janusz Davenport MD [address] [place], [place] [id number] 6 month follow up Urology Comment on above: 6 month follow up Start: 06-16-2024 End: 06-16-2024 Patient encounter procedure 06/16/2024 10:40 AM EDT Office Visit Kidney Medicine [address] [place] [address] Ángel Julio DO [address] [place] [address] Return in about 1 year (around 06/10/2024). Kidney Medicine Comment on above: Return in about 1 ye ar (around 06/10/2024). Start: 05-30-2024 End: 05-30-2024 Patient encounter procedure Family Medicine Shi Comment on above: 6 month follow up ER follow up/6 month follow up Start: 05-25-2024 End: 08-24-2024 CBC W Auto Differential panel - Blood COMPLETE BLOOD COUNT AND DIFFERENTIAL Lab Routine Type 2 diabetes 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, without long-term current use of insulin, unspecified whether stage 3a or 3b CKD (HCC) Stage 3b chronic kidney disease (HCC) Essential hypertension, benign Expected: 05/25/2024 (Approximate), Expires: 08/24/2024 [facility] Comment on above: Expected: 05/25/2024 (Approximate), [...] hypertension, benign Expected: 05/25/2024 (Approximate), Expires: 08/24/2024 [facility] Comment on above: Expected: 05/25/2024 (Approximate), Expires: 08/24/2024 Start: 05-25-2024 Covid-19 Vaccine (4 - 2023-24 season) Covid-19 Vaccine ( season) [facility] Comment on above: Postponed from 12/08 (Declined at this time) Start: 05-25-2024 End: 08-24-2024 Hemoglobin A1c in Blood HEMOGLOBIN A1C Lab Routine Type 2 diabetes 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, without long-term current use of insulin, unspecified whether stage 3a or 3b CKD (HCC) Expected: 05/25/2024 (Approximate), Expires: 08/24/2024 [facility] Work Phone: Comment on above: Expected: 05/25/2024 (Approximate), Expires: 08/24/2024 Start: 05-25-2024 End: 08-24-2024 Lipid 1996 panel - Serum or Plasma LIPID PANEL BASIC Lab Routine Type 2 diabetes 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, without long-term current use of insulin, unspecified whether stage 3a or 3b CKD (HCC) Hyperlipidemia, unspecified hyperlipidemia type Expected: 05/25/2024 (Approximate), Expires: 08/24/2024 [facility] Comment on above: Expected: 05/25/2024 (Approximate), Expires: 08/24/2024 Start: 05-25-2024 End: 08-24-2024 Microalbumin/Creatinine [Mass Ratio] in Urine ALBUMIN/CREATININE RATIO, URINE Lab Routine Type 2 diabetes 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, without long-term current use of insulin, unspecified whether stage 3a or 3b CKD (HCC) Expected: 05/25/2024 (Approximate), Expires: 08/24/2024 [facility] Comment on above: Expected: 05/25/2024 (Approximate), Expires: 08/24/2024 Start: 05-25-2024 RSV Vaccine (1 - 1-d ose 60+ series) RSV Vaccine (1 - 1-dose 60+ series) [facility] Comment on above: Postponed from 12/12 (Insurance Coverage) Start: 05-25-2024 RSV Vaccine (1 - 1-d ose 75+ series) RSV Vaccine (1 - 1-dose 75+ series) [facility] Comment on above: Postponed from 12/12 (Insurance Coverage) Start: 05-22-2024 End: 05-22-2024 ambulatory 05/22/2024 8:00 AM EST Results Only Shi [facility] [address] [place] [address] Type 2 diabetes 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, without long-term [place] [facility] Comment on above: Type 2 diabetes melvi itus with stage 3 chronic kidney disease, without long-term Start: 05-18-2024 Hemoglobin A1c measurement HbA1C [facility] Start: 05-17-2024 Hepatitis B screening Urine Al bumin:Creatinine Ratio [facility] Start: 05-17-2024 Hepatitis B surface antibody level LDL Cholesterol [facility] Start: 04-09-2024 Advance Directive Discussion Advance Directive Discussion [facility] Start: 03-04-2024 End: 03-04-2024 Patient encounter procedure 03/04/2024 1:00 PM EST Appointment Radiology [address] [place] [address] Other specified disorders of kidney and ureter [N28.89] Radiology Comment on above: Other specified diso rders of kidney and ureter [N28.89] Start: 02-20-2024 End: 02-20-2024 Nursing evaluation of patient and report 02/20/2024 10:45 AM EST Nurse Visit [facility] [address] [facility] [place] [address] Nurse, Ne [address] [place] [address] flu shot [facility] Comment on above: flu shot Start: 02-19-2024 End: 02-19-2024 Patient encounter procedure Urology Comment on above: follow up 1 year *UA AUA PVR* follow up 1 year Start: 01-12-2024 End: 01-12-2024 Patient encounter procedure 01/12/2024 3:30 PM EDT Appointment Radiology CT Scan [address] [place] [address] Monoclonal gammopathy [D47.2] Radiology CT Scan Comment on above: 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] Start: 12-31-2023 End: 12-31-2023 ambulatory 12/31/2023 2:30 PM EDT Visit (SP) Office Hematology/Oncology [address] [place] [address] Gary Kelly DO [address] [place] [address] 6MO OV/LABS EARLY* Hematology/Oncology Comment on above: 6MO OV/LABS EARLY* Start: 12-24-2023 End: 12-24-2023 ambulatory 12/24/2023 11:00 AM EDT Results Only Shi K[facility] [address] [place] [address] CBC/MM LABS* [facility] Comment on above: CBC/MM LABS* Start: 12-09-2023 Covid-19 Vaccine ( season) Covid-19 Vaccine () [facility] Start: 12-09-2023 Covid-19 Vaccine () Covid-19 Vaccine () [facility] Start: 12-09-2023 Influenza vaccination Influenza Vacc ine (#1) [facility] Start: 11-23-2023 End: 02-22-2024 Comprehensive metabolic 2000 panel - Serum or Plasma COMP METABOLIC PANEL Lab Routine Stage 3b chronic kidney disease (HCC) Essential hypertension, benign Type 2 diabetes 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, without long-term current use of insulin, unspecified whether stage 3a or 3b CKD (HCC) Expected: 11/23/2023 (Approximate), Expires: 02/22/2024 [facility] Work Phone: Comment on above: Expected: 11/23/2023 (Approximate), Expires: 02/22/2024 Start: 11-23-2023 End: 02-22-2024 Hemoglobin A1c in Blood HGB A1C Lab Routine Type 2 diabetes 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, without long-term current use of insulin, unspecified whether stage 3a or 3b CKD (HCC) Expected: 11/23/2023 (Approximate), Expires: 02/22/2024 [facility] Work Phone: Comment on above: Expected: 11/23/2023 (Approximate), Expires: 02/22/2024 Start: 11-23-2023 End: 02-22-2024 Lipid 1996 panel - Serum or Plasma LIPID PANEL BASIC Lab Routine Hyperlipidemia, unspecified hyperlipidemia type Type 2 diabetes 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, without long-term current use of insulin, unspecified whether stage 3a or 3b CKD (HCC) Expected: 11/23/2023 (Approximate), Expires: 02/22/2024 [facility] Work Phone: Comment on above: Expected: 11/23/2023 (Approximate), Expires: 02/22/2024 Start: 11-15-2023 Hemoglobin A1c measurement HbA1C [facility] Start: 06-20-2023 End: 09-19-2023 [id number] [Mass/volume] in Serum or Plasma B2 MICROGLOBULIN B Lab Routine MGUS (monoclonal gammopathy of unknown significance) Expected: 06/20/2023, Expires: 09/19/2023 [facility] Work Phone: Comment on above: Expected: 06/20/2023 , Expires: 09/19/2023 Start: 06-20-2023 End: 09-19-2023 CBC W Auto Differential panel - Blood CBC + DIFF Lab STAT MGUS (monoclonal gammopathy of unknown significance) Expected: 06/20/2023, Expires: 09/19/2023 [facility] Work Phone: Comment on above: Expected: 06/20/2023 , Expires: 09/19/2023 Start: 06-20-2023 End: 09-19-2023 Comprehensive metabolic 2000 panel - Serum or Plasma COMP METABOLIC PANEL Lab STAT MGUS (monoclonal gammopathy of unknown significance) Expected: 06/20/2023, Expires: 09/19/2023 [facility] Work Phone: Comment on above: Expected: 06/20/2023 , Expires: 09/19/2023 Start: 06-20-2023 End: 09-19-2023 IMMUNOGLOBULINS ARIANE IMMUNOGLOBULINS ARIANE Lab Routine MGUS (monoclonal gammopathy of unknown significance) Expected: 06/20/2023, Expires: 09/19/2023 [facility] Work Phone: Comment on above: Expected: 06/20/2023 , Expires: 09/19/2023 Start: 06-20-2023 End: 09-19-2023 KAPPA/CHRISTIE,FREE,SER KAPPA/CHRISTIE,FREE,SER Lab Routine MGUS (monoclonal gammopathy of unknown significance) Expected: 06/20/2023, Expires: 09/19/2023 [facility] Work Phone: Comment on above: Expected: 06/20/2023 , Expires: 09/19/2023 Start: 06-20-2023 End: 09-19-2023 Lactate dehydrogenase [Enzymatic activity/volume] in Serum or Plasma LD LACTATE DEHYDRO Lab Routine MGUS (monoclonal gammopathy of unknown significance) Expected: 06/20/2023, Expires: 09/19/2023 [facility] Work Phone: Comment on above: Expected: 06/20/2023 , Expires: 09/19/2023 Start: 06-20-2023 End: 09-19-2023 MONOCLONAL PROTEIN, SERUM (BLOOD) MONOCLONAL PROTEIN, SERUM (BLOOD) Lab Routine MGUS (monoclonal gammopathy of unknown significance) Expected: 06/20/2023, Expires: 09/19/2023 [facility] Work Phone: Comment on above: Expected: 06/20/2023 , Expires: 09/19/2023 Start: 06-20-2023 End: 09-19-2023 PROTEIN ELECTROPHORESIS SERUM W/INTERP PROTEIN ELECTROPHORESIS SERUM W/INTERP Lab Routine MGUS (monoclonal gammopathy of unknown significance) Expected: 06/20/2023, Expires: 09/19/2023 [facility] Work Phone: Comment on above: Expected: 06/20/2023 , Expires: 09/19/2023 Start: 06-10-2023 Glaucoma screening Dilated Retinal E xam [facility] Start: 06-10-2023 Hepatitis C antibody , confirmatory test DILATED RETINAL EXAM [facility] Start: 05-27-2023 End: 07-27-2023 ALBUMIN/CREAT RATIO RND UR ALBUMIN/CREAT RATIO RND UR Lab Routine Type 2 diabetes mellitus without complication, without long-term current use of insulin (HCC) Expected: 05/27/2023 (Approximate), Expires: 07/27/2023 [facility] Work Phone: Comment on above: Expected: 05/27/2023 (Approximate), Expires: 07/27/2023 Start: 05-27-2023 End: 07-27-2023 Comprehensive metabolic 2000 panel - Serum or Plasma COMP METABOLIC PANEL Lab Routine Stage 3b chronic kidney disease (HCC) Type 2 diabetes mellitus without complication, without long-term current use of insulin (HCC) Expected: 05/27/2023 (Approximate), Expires: 07/27/2023 [facility] Work Phone: Comment on above: Expected: 05/27/2023 (Approximate), Expires: 07/27/2023 Start: 05-27-2023 End: 07-27-2023 Hemoglobin A1c in Blood HGB A1C Lab Routine Type 2 diabetes mellitus without complication, without long-term current use of insulin (HCC) Expected: 05/27/2023 (Approximate), Expires: 07/27/2023 [facility] Work Phone: Comment on above: Expected: 05/27/2023 (Approximate), Expires: 07/27/2023 Start: 05-27-2023 End: 07-27-2023 Lipid 1996 panel - Serum or Plasma LIPID PANEL BASIC Lab Routine Hyperlipidemia, unspecified hyperlipidemia type Expected: 05/27/2023 (Approximate), Expires: 07/27/2023 [facility] Work Phone: Comment on above: Expected: 05/27/2023 (Approximate), Expires: 07/27/2023 Start: 05-23-2023 End: 08-22-2023 CBC panel - Blood by Automated count CBC Lab Routine Stage 3 chronic kidney disease, unspecified whether stage 3a or 3b CKD (HCC) Expected: 05/23/2023, Expires: 08/22/2023 [facility] Work Phone: Comment on above: Expected: 05/23/2023 , Expires: 08/22/2023 Start: 05-23-2023 End: 05-15-2024 Protein/Creatinine [Mass Ratio] in Urine PROTEIN CREATININE RATIO Lab Routine Stage 3 chronic kidney disease, unspecified whether stage 3a or 3b CKD (HCC) Expected: 05/23/2023, Expires: 08/22/2023 [facility] Work Phone: Comment on above: Expected: 05/23/2023 , Expires: 08/22/2023 Start: 05-23-2023 End: 08-22-2023 Urinalysis complete panel - Urine URINALYSIS, WITH MICROSCOPIC Lab Routine Stage 3 chronic kidney disease, unspecified whether stage 3a or 3b CKD (HCC) Expected: 05/23/2023, Expires: 08/22/2023 [facility] Work Phone: Comment on above: Expected: 05/23/2023 , Expires: 08/22/2023 Start: 05-20-2023 Hepatitis B surface antibody level LDL CHOLESTEROL [facility] Start: 05-04-2023 Hemoglobin A1c/Hemoglobin.total in Blood HBA1C [facility] Start: 04-09-2023 Advance Directive Discussion Advance Directive Discussion [facility] Start: 04-09-2023 Depression Assessment Depression Ass essment [facility] Start: 01-11-2023 End: 02-11-2023 US KIDNEY/BLADDER US KIDNEY/BLADDER Radiology Routine Congenital multiple renal cysts Expected: 01/11/2023, Expires: 02/11/2023 [facility] Work Phone: Comment on above: Expected: 01/11/2023 , Expires: 02/11/2023 Start: 12-08-2022 Covid-19 Vaccine ( season) Covid-19 Vaccine () [facility] Start: 12-08-2022 Influenza vaccination INFLUENZA (#1) [facility] Start: 12-06-2022 End: 02-05-2023 CBC W Auto Differential panel - Blood CBC + DIFF Lab Routine MGUS (monoclonal gammopathy of unknown significance) Expected: 12/06/2022, Expires: 02/05/2023 [facility] Work Phone: Comment on above: Expected: 12/06/2022 , Expires: 02/05/2023 Start: 12-06-2022 End: 02-05-2023 Comprehensive metabolic 2000 panel - Serum or Plasma COMP METABOLIC PANEL Lab Routine MGUS (monoclonal gammopathy of unknown significance) Expected: 12/06/2022, Expires: 02/05/2023 [facility] Work Phone: Comment on above: Expected: 12/06/2022 , Expires: 02/05/2023 Start: 12-06-2022 End: 02-05-2023 MONOCLONAL PROTEIN, SERUM (BLOOD) MONOCLONAL PROTEIN, SERUM (BLOOD) Lab Routine MGUS (monoclonal gammopathy of unknown significance) Expected: 12/06/2022, Expires: 02/05/2023 [facility] Work Phone: Comment on above: Expected: 12/06/2022 , Expires: 02/05/2023 Start: 12-06-2022 End: 02-05-2023 PROTEIN ELECTROPHORESIS SERUM W/INTERP PROTEIN ELECTROPHORESIS SERUM W/INTERP Lab Routine MGUS (monoclonal gammopathy of unknown significance) Expected: 12/06/2022, Expires: 02/05/2023 [facility] Work Phone: Comment on above: Expected: 12/06/2022 , Expires: 02/05/2023 Start: 11-23-2022 End: 01-23-2023 Comprehensive metabolic 2000 panel - Serum or Plasma COMP METABOLIC PANEL Lab Routine Type 2 diabetes mellitus without complication, without long-term current use of insulin (HCC) Essential hypertension, benign Expected: 11/23/2022 (Approximate), Expires: 01/23/2023 [facility] Work Phone: Comment on above: Expected: 11/23/2022 (Approximate), Expires: 01/23/2023 Start: 11-23-2022 End: 01-23-2023 Hemoglobin A1c in Blood HGB A1C Lab Routine Type 2 diabetes mellitus without complication, without long-term current use of insulin (HCC) Expected: 11/23/2022 (Approximate), Expires: 01/23/2023 [facility] Work Phone: Comment on above: Expected: 11/23/2022 (Approximate), Expires: 01/23/2023 Start: 11-17-2022 Hemoglobin A1c/Hemoglobin.total in Blood HBA1C [facility] Start: 06-23-2022 Hepatitis B surface antibody level LDL CHOLESTEROL [facility] Start: 06-20-2022 FECAL OCCULT BLOOD FECAL OCCULT BLOO D [facility] Start: 05-25-2022 End: 07-25-2022 Comprehensive metabolic 2000 panel - Serum or Plasma COMP METABOLIC PANEL Lab Routine Stage 3b chronic kidney disease (HCC) Essential hypertension, benign Expected: 05/25/2022 (Approximate), Expires: 07/25/2022 [facility] Work Phone: Comment on above: Expected: 05/25/2022 (Approximate), Expires: 07/25/2022 Start: 05-25-2022 End: 07-25-2022 Hemoglobin A1c in Blood HGB A1C Lab Routine Type 2 diabetes mellitus without complication, without long-term current use of insulin (HCC) Expected: 05/25/2022 (Approximate), Expires: 07/25/2022 [facility] Work Phone: Comment on above: Expected: 05/25/2022 (Approximate), Expires: 07/25/2022 Start: 05-25-2022 End: 07-25-2022 Lipid 1996 panel - Serum or Plasma LIPID PANEL BASIC Lab Routine Hyperlipidemia, unspecified hyperlipidemia type Expected: 05/25/2022 (Approximate), Expires: 07/25/2022 [facility] Work Phone: Comment on above: Expected: 05/25/2022 (Approximate), Expires: 07/25/2022 Start: 05-21-2022 Hepatitis B screening URINE AL BUMIN:CREATININE RATIO [facility] Start: 05-20-2022 Hemoglobin A1c/Hemoglobin.total in Blood HBA1C [facility] Start: 04-24-2022 End: 06-24-2022 Renal function 2000 panel - Serum or Plasma RENAL FUNCTION PANEL Lab Routine Stage 3b chronic kidney disease (HCC) Expected: 04/24/2022, Expires: 06/24/2022 [facility] Work Phone: Comment on above: Expected: 04/24/2022 , Expires: 06/24/2022 Start: 04-09-2022 ADVANCE DIRECTIVE DISCUSSION ADVANCE DIRECTIVE DISCUSSION [facility] Start: 04-09-2022 DEPRESSION ASSESSMENT DEPRESSION ASS ESSMENT [facility] Start: 01-20-2022 Hepatitis C antibody , confirmatory test DILATED RETINAL EXAM [facility] Start: 01-09-2022 End: 09-10-2022 US KIDNEY/BLADDER US KIDNEY/BLADDER Radiology Routine Congenital multiple renal cysts Expected: 01/09/2022, Expires: 09/10/2022 [facility] Work Phone: Comment on above: Expected: 01/09/2022 , Expires: 09/10/2022 Start: 12-24-2021 Hemoglobin A1c/Hemoglobin.total in Blood HBA1C [facility] Start: 12-08-2021 Influenza vaccination INFLUENZA (#1) [facility] Start: 08-08-2021 End: 10-08-2021 MONOCLONAL PROTEIN, SERUM (BLOOD) [facility] Work Phone: Comment on above: Expected: 08/08/2021 , Expires: 10/08/2021 Start: 08-08-2021 End: 08-08-2022 PTH INTACT BLD [facility] Work Phone: Comment on above: Expected: 08/08/2021 , Expires: 08/08/2022 Start: 08-08-2021 End: 08-08-2022 VITAMIN D 25 HYDROXY [facility] Work Phone: Comment on above: Expected: 08/08/2021 , Expires: 08/08/2022 Start: 06-22-2021 COVID-19 VACCINE (4 - Booster for Moderna series) COVID-19 VACCINE (4 - Booster for Moderna series) [facility] Start: 04-19-2021 COVID-19 VACCINE (4 - Booster for Moderna series) COVID-19 VACCINE (4 - Booster for Moderna series) [facility] Start: 04-19-2021 COVID-19 VACCINE (4 - Moderna series) COVID-19 VACCINE (4 - Moderna series) [facility] Start: 04-09-2021 ADVANCE DIRECTIVE DISCUSSION ADVANCE DIRECTIVE DISCUSSION [facility] Start: 04-09-2021 DEPRESSION ASSESSMENT DEPRESSION ASS ESSMENT [facility] Start: 06-06-2020 3 comp foot exam completed DIABETIC FOOT EXAM [facility] Start: 06-06-2020 Diabetic foot examination Diabetic F oot Exam [facility] Start: 12-12-2014 RSV Vaccine (1 - 1-d ose 75+ series) RSV Vaccine (1 - 1-dose 75+ series) [facility] Start: 04-07-2013 SHINGRIX VACCINE (2 of 3) BARNARD GRIX VACCINE (2 of 3) [facility] Start: 12-08-2004 Medicare Annual Well ness Visit Medicare Annual Wellness Visit [facility] Start: 1999 Hepatitis B Vaccine (1 of 3 - Risk 3-dose series) Hepatitis B Vaccine (1 of 3 - Risk 3-dose series) [facility] Start: 1999 RSV Vaccine (1 - 1-d ose 60+ series) RSV Vaccine (1 - 1-dose 60+ series) [facility] Start: 12-12-1957 Anxiety Screening Anxiety Screening [facility] Start: 12-12-1957 Depression Screening Depression Scre ening [facility] End: 08-08-2022 CBC panel - Blood by Automated count CBC Lab Routine Stage 3b chronic kidney disease (HCC) Every 6 months for 3 Occurrences starting 08/08/2021 until 08/08/2022, 1 completed [facility] Work Phone: Comment on above: Every 6 months for 3 Occurrences starting 08/08/2021 until 08/08/2022, 1 completed End: 05-05-2023 CBC panel - Blood by Automated count CBC Lab Routine Stage 3b chronic kidney disease (HCC) Every 6 months for 3 Occurrences starting 05/05/2022 until 05/05/2023 [facility] Work Phone: Comment on above: Every 6 months for 3 Occurrences starting 05/05/2022 until 05/05/2023 End: 01-29-[address] WHOLE BODY SKULL TO KNEE WO IVCON Radiology Routine Monoclonal gammopathy 1 Occurrences starting 12/31/2023 until 01/29/2025 [facility] Work Phone: Comment on above: 1 Occurrences starti ng 12/31/2023 until 01/29/2025 End: 01-12-2024 CT Whole body [facility] Work Phone: Comment on above: 1 Occurrences starti ng 01/12/2024 until 01/12/2024 Gastrointestinal pathogens panel - Stool by Culture STOOL CULTURE/EIA Microbiology Routine Diarrhea, unspecified type Ordered: 09/07/2021 [facility] Work Phone: Comment on above: Ordered: 09/07/2021 Giardia lamblia+Cryptosporidium sp Ag [Presence] in Stool by Immunoassay CRYPTOSPORIDIUM AND GIARDIA ANTIGENS BY EIA Microbiology Routine Diarrhea, unspecified type Ordered: 09/07/2021 [facility] Work Phone: Comment on above: Ordered: 09/07/2021 Giardia lamblia+Cryptosporidium sp Ag [Presence] in Stool by Immunoassay CRYPTOSPORIDIUM AND GIARDIA ANTIGENS BY EIA Microbiology Routine Diarrhea, unspecified type Ordered: 09/09/2021 [facility] Work Phone: Comment on above: Ordered: 09/09/2021 MONOCLONAL PROT 24 U R W/INTERP MONOCLONAL PROT 24 UR W/INTERP Lab Routine MGUS (monoclonal gammopathy of unknown significance) Ordered: 12/05/2022 [facility] Work Phone: Comment on above: Ordered: 12/05/2022 MONOCLONAL PROT 24 U R W/INTERP MONOCLONAL PROT 24 UR W/INTERP Lab Routine MGUS (monoclonal gammopathy of unknown significance) Ordered: 06/19/2023 [facility] Work Phone: Comment on above: Ordered: 06/19/2023 MONOCLONAL PROT 24 U R W/INTERP MONOCLONAL PROT 24 UR W/INTERP Lab Routine MGUS (monoclonal gammopathy of unknown significance) Ordered: 12/22/2024 [facility] Comment on above: Ordered: 12/22/2024 End: 03-15-2025 MR Kidney WO and W contrast IV MRI KIDNEY WO/W IVCON Radiology Routine Other specified disorders of kidney and ureter 1 Occurrences starting 02/14/2024 until 03/15/2025 [facility] Work Phone: Comment on above: 1 Occurrences starti ng 02/14/2024 until 03/15/2025 MR Kidney WO and W contrast IV MRI KIDNEY WO/W IVCON Radiology Routine Other specified disorders of kidney and ureter 03/04/2024 1:57 PM EST [facility] Work Phone: Patient Education [facility] Work Phone: Patient referral [facility] Work Phone: PROT ELEC UR 24HR W/ M SPIKE (P) PROT ELEC UR 24HR W/M SPIKE (P) Lab Routine MGUS (monoclonal gammopathy of unknown significance) Ordered: 12/05/2022 [facility] Work Phone: Comment on above: Ordered: 12/05/2022 PROT ELEC UR 24HR W/ M SPIKE (P) PROT ELEC UR 24HR W/M SPIKE (P) Lab Routine MGUS (monoclonal gammopathy of unknown significance) Ordered: 06/19/2023 [facility] Work Phone: Comment on above: Ordered: 06/19/2023 PROT ELEC UR 24HR W/ M SPIKE (P) PROT ELEC UR 24HR W/M SPIKE (P) Lab Routine MGUS (monoclonal gammopathy of unknown significance) Ordered: 12/22/2024 [facility] Comment on above: Ordered: 12/22/2024 PROT ELEC UR 24HR W/ M SPIKE AND INTERP PROT ELEC UR 24HR W/M SPIKE AND INTERP Lab Routine MGUS (monoclonal gammopathy of unknown significance) Ordered: 12/05/2022 [facility] Work Phone: Comment on above: Ordered: 12/05/2022 PROT ELEC UR 24HR W/ M SPIKE AND INTERP PROT ELEC UR 24HR W/M SPIKE AND INTERP Lab Routine MGUS (monoclonal gammopathy of unknown significance) Ordered: 06/19/2023 [facility] Work Phone: Comment on above: Ordered: 06/19/2023 PROT ELEC UR 24HR W/ M SPIKE AND INTERP PROT ELEC UR 24HR W/M SPIKE AND INTERP Lab Routine MGUS (monoclonal gammopathy of unknown significance) Ordered: 12/22/2024 [facility] Work Phone: Comment on above: Ordered: 12/22/2024 Protein [Mass/time] in 24 hour Urine PROTEIN 24 HR URINE Lab Routine MGUS (monoclonal gammopathy of unknown significance) Ordered: 12/05/2022 [facility] Work Phone: Comment on above: Ordered: 12/05/2022 Protein [Mass/time] in 24 hour Urine PROTEIN 24 HR URINE Lab Routine MGUS (monoclonal gammopathy of unknown significance) Ordered: 06/19/2023 [facility] Work Phone: Comment on above: Ordered: 06/19/2023 Protein [Mass/time] in 24 hour Urine PROTEIN, 24 HOUR URINE Lab Routine MGUS (monoclonal gammopathy of unknown significance) Ordered: 12/22/2024 [facility] Comment on above: Ordered: 12/22/2024 End: 08-08-2022 Protein/Creatinine [Mass Ratio] in Urine PROTEIN CREATININE RATIO Lab Routine Stage 3b chronic kidney disease (HCC) Every 6 months for 3 Occurrences starting 08/08/2021 until 08/08/2022 [facility] Work Phone: Comment on above: Every 6 months for 3 Occurrences starting 08/08/2021 until 08/08/2022 Protein/Creatinine [ Mass Ratio] in Urine PROTEIN CREATININE RATIO Lab Routine Stage 3b chronic kidney disease (HCC) 08/08/2021 12:41 PM EDT [facility] Work Phone: End: 05-05-2023 Protein/Creatinine [Mass Ratio] in Urine PROTEIN CREATININE RATIO Lab Routine Stage 3b chronic kidney disease (HCC) Every 6 months for 3 Occurrences starting 05/05/2022 until 05/05/2023 [facility] Work Phone: Comment on above: Every 6 months for 3 Occurrences starting 05/05/2022 until 05/05/2023 End: 08-08-2022 Renal function 2000 panel - Serum or Plasma RENAL FUNCTION PANEL Lab Routine Stage 3b chronic kidney disease (HCC) Every 6 months for 3 Occurrences starting 08/08/2021 until 08/08/2022 [facility] Work Phone: Comment on above: Every 6 months for 3 Occurrences starting 08/08/2021 until 08/08/2022 Renal function 2000 panel - Serum or Plasma RENAL FUNCTION PANEL Lab Routine Stage 3b chronic kidney disease (HCC) 08/08/2021 12:25 PM [facility] Work Phone: End: 05-05-2023 Renal function 2000 panel - Serum or Plasma RENAL FUNCTION PANEL Lab Routine Stage 3b chronic kidney disease (HCC) Every 6 months for 3 Occurrences starting 05/05/2022 until 05/05/2023 [facility] Work Phone: Comment on above: Every 6 months for 3 Occurrences starting 05/05/2022 until 05/05/2023 End: 08-08-2022 Urinalysis complete panel - Urine URINALYSIS, WITH MICROSCOPIC Lab Routine Stage 3b chronic kidney disease (HCC) Every 6 months for 3 Occurrences starting 08/08/2021 until 08/08/2022 [facility] Work Phone: Comment on above: Every 6 months for 3 Occurrences starting 08/08/2021 until 08/08/2022 Urinalysis complete panel - Urine URINALYSIS, WITH MICROSCOPIC Lab Routine Stage 3b chronic kidney disease (HCC) 08/08/2021 12:41 PM [facility] Work Phone: End: 05-05-2023 Urinalysis complete panel - Urine URINALYSIS, WITH MICROSCOPIC Lab Routine Stage 3b chronic kidney disease (HCC) Every 6 months for 3 Occurrences starting 05/05/2022 until 05/05/2023 [facility] Work Phone: Comment on above: Every 6 months for 3 Occurrences starting 05/05/2022 until 05/05/2023 [facility] Immunizations Immunization Date Immunization Notes Care Provider Fa [facility] 02-20-2024 influenza, high dose seasonal, preservative-free Mi Nurse Work Phone: [facility] 02-20-2024 influenza virus vaccine, unspecified formulation Rafael Ramirez APRN.INSTALLATION COORDINATOR Work Phone: [facility] 01-17-2023 influenza (HD-IIV4) vaccine, age 65+ yr, high dose, quadrivalent, PF (FLUZONE HIGH-DOSE) Immunization [place] Work Phone: [facility] Work Phone: 01-17-2023 influenza virus vaccine, unspecified formulation Rafael Ramirez APRN.INSTALLATION COORDINATOR Work Phone: [facility] 01-28-2022 influenza, high-dose , quadrivalent vaccine (FLUZONE HIGH DOSE QUADRIVALENT) Immunization Shi Work Phone: [facility] 01-15-2021 influenza, high-dose , quadrivalent vaccine (FLUZONE HIGH DOSE QUADRIVALENT) Ángel Nori DO Work Phone: [facility] 07-05-2020 COVID-19 vaccine, fu ll dose (MODERNA) Ángel Maditz DO Work Phone: [facility] 06-07-2020 COVID-19 vaccine, fu ll dose (MODERNA) Ángel Maditz DO Work Phone: [facility] 01-09-2020 influenza, high-dose , quadrivalent vaccine (FLUZONE HIGH DOSE QUADRIVALENT) Ángel Maditz DO Work Phone: [facility] Work Phone: 02-01-2019 influenza, high dose seasonal, preservative-free Ángel Maditz DO Work Phone: [facility] 03-18-2018 Influenza virus vaccine [facility] Work Phone: 03-18-2018 influenza, seasonal, injectable Ángel Maditz DO Work Phone: [facility] Work Phone: 02-01-2018 influenza, high dose seasonal, preservative-free Ángel Maditz DO Work Phone: [facility] Work Phone: 03-08-2017 tetanus toxoid, redu jeannie diphtheria toxoid, and acellular pertussis vaccine, adsorbed Ángel Julio DO Work Phone: [facility] 01-12-2017 influenza, high dose seasonal, preservative-free Ángel Julio DO Work Phone: [facility] 01-29-2016 influenza, high dose seasonal, preservative-free Ángel Julio DO Work Phone: [facility] Work Phone: 05-10-2015 pneumococcal polysaccharide vaccine, 23 valent Ángel Julio DO Work Phone: [facility] 02-17-2015 influenza, high dose seasonal, preservative-free Ángel Julio DO Work Phone: [facility] Work Phone: 06-20-2014 diphtheria, tetanus toxoids and pertussis vaccine Ángel Julio DO Work Phone: [facility] Work Phone: 06-20-2014 tetanus toxoid, redu jeannie diphtheria toxoid, and acellular pertussis vaccine, adsorbed Ángel Julio DO Work Phone: [facility] Work Phone: 05-11-2014 pneumococcal conjuga te vaccine, 13 valent Ángel Julio DO Work Phone: [facility] 02-04-2014 influenza, seasonal, injectable Ángel Julio DO Work Phone: [facility] Work Phone: 02-10-2013 zoster vaccine, live Ángel huang DO Work Phone: [facility] 01-18-2013 influenza virus vaccine, unspecified formulation Ángel Julio DO Work Phone: [facility] 02-22-2012 influenza virus vaccine, unspecified formulation Ángel Julio DO Work Phone: [facility] 01-18-2011 influenza virus vaccine, unspecified formulation Ángel Julio DO Work Phone: [facility] 03-01-2010 influenza virus vaccine, unspecified formulation Ángel Julio DO Work Phone: [facility] Work Phone: 12-29-2008 influenza virus vaccine, unspecified formulation Ángel Julio DO Work Phone: [facility] 02-13-2008 influenza virus vaccine, unspecified formulation Ángel Julio DO Work Phone: [facility] Work Phone: 02-12-2007 influenza virus vaccine, unspecified formulation Ángel Julio DO Work Phone: [facility] 02-14-2006 influenza virus vaccine, unspecified formulation Ángel Julio DO Work Phone: [facility] 07-17-2005 tetanus and diphther ia toxoids, adsorbed, preservative free, for adult use (2 Lf of tetanus toxoid and 2 Lf of diphtheria toxoid) Ángel Julio DO Work Phone: [facility] 03-25-2001 pneumococcal polysaccharide vaccine, 23 valent Ángelpilar Julio DO Work Phone: [facility] Work Phone: Payers Date Payer Category Payer Self-pay [id number] 2020 Private Health Insurance [employer] A ETNA MEDICARE SUPPLEMENT [id number] 2020-Present [phone] [address] [address] [place] [address] Indemnity [id number] 2020 Private Health Insurance [id number] 2020 Private Health Insurance I [id number] 2007 Medicare [id number] 2004 Medicare MEDICARE MEDICAR E A AND B [id number] 2004-Present [phone] [place] [address] Medicare [id number] 2004 Medicare [id number] 2004 Medicare [id number] 1939 Unknown [id number] 1940 Unknown [id number] Medicare [id number] Unknown [id number] Unknown [id number] Unknown [id number] Unknown [id number] Social History Date Type Detail Facility Start: 07-02-2014 End: 05-30-2024 Tobacco smoking status NHIS Ex-smoker [facility] Work Phone: Start: 04-09-1968 End: 04-09-1978 History of tobacco use Current smoker [facility] Work Phone: Start: 07-02-2014 End: 09-07-2022 Cigarettes smoked current (pack per day) - Reported 0.5 [facility] Start: 07-02-2014 End: 05-30-2024 Tobacco use and exposure Smokeless tobacco non-user [facility] Work Phone: Start: 08-08-2021 End: 08-18-2024 Alcohol intake Current non-drinker of alcohol (finding) [facility] Start: 05-30-2020 History SDOH Alcohol Frequency 2 [facility] Start: 05-30-2020 History SDOH Alcohol Std Drinks 98 [facility] Start: 05-30-2020 History SDOH Alcohol Binge 1 [facility] Start: 05-30-2020 History SDOH Social Connections Phone 3 [facility] Start: 05-30-2020 History SDOH Physical Activity DPW 7 [facility] Start: 05-30-2020 History SDOH Physical Activity MPS 12 [facility] Start: 05-30-2020 History SDOH Financial 5 [facility] Start: 05-30-2020 Education 15 [facility] Start: 07-02-2014 End: 11-22-2021 Tobacco Comment quit 50 years ago [facility] Start: 1940 Sex Assigned At Male [facility] Start: 07-29-2021 End: 03-08-2022 Exposure to SARS-CoV-2 (event) Not sure [facility] Start: 09-06-2021 End: 11-02-2021 Tobacco smoking status NHIS Unknown if ever smoked [facility] Work Phone: Start: 05-23-2018 None [facility] Work Phone: Start: 05-26-2018 Non-smoker [facility] Work Phone: Start: 04-09-1968 End: 04-09-1978 History of tobacco use Cigarette Smoker [facility] Start: 05-30-2020 End: 09-07-2022 Social connection and isolation panel [facility] Do you belong to any clubs or organizations such as advent groups, unions, fraternal or athletic groups, or school groups? Yes [facility] Are you now , , , , never or living with a partner? [facility] How often to you hav e a drink containing alcohol? Monthly or less [facility] Start: 03-10-2012 How many standard drinks containing alcohol do you have on a typical day? Patient refused [facility] How often do you hav e 6 or more drinks on 1 occasion? Never [facility] Do you feel stress - tense, restless, nervous, or anxious, or unable to sleep at night because your mind is troubled all the time - these days [OSQ] Not at all [facility] (I/We) worried dina er (my/our) food would run out before (I/we) got money to buy more. Never true [facility] In the past 12 month s, was there a time when you were not able to pay the mortgage or rent on time? No [facility] Start: 08-07-2021 Gender identity Identifies as male gender (finding) [facility] Start: 08-07-2021 Sexual orientation Heterosexual (finding) [facility] Start: 12-01-2024 Alcoholic beverage intake Current drinker of alcohol (finding) [facility] How often to you hav e a drink containing alcohol? 2-3 time sa week [facility] How many standard dr inks containing alcohol do you have on a typical day? 1 or 2 [facility] Start: 12-22-2024 Alcoholic beverage intake Ex-drinker (finding) [facility] Procedure Code Equipment Code Equipment Origin al Text Equipment Identifier Dates Test blood sugar(s) 1 times daily. Dx: Type 2 DM - Controlled E11.9 Insulin: No [id number] Start: 10-19-2016 End: 12-01-2024 Comment on above: Test blood sugar(s) 1 times daily. Dx: Type 2 DM - Controlled E11.9 Insulin: No Glucometer with test strips (whatever is covered by insurance) Dx: E11.9 Testing once per day Start: 10-17-2016 End: 05-26-2022 Comment on above: Glucometer with test strips (whatever is covered by insurance) Dx: E11.9 Testing once per day Functional Status Date Assessment Result Facility 12-22-2024 Total score [AUDIT-C] 0 12/23/19 2:16 PM EDT Keon Mendez MA [facility] 12-01-2024 Total score [AUDIT-C] 3 12/02/19 12:42 PM EDT Nel Stokes MA [facility] 11-02-2014 Are you deaf, or do you have serious difficulty hearing No 11/02/2014 2:44 PM EDT Hemalatha Whitehead RN [facility] 11-02-2014 Are you blind, or do you have serious difficulty seeing, even when wearing glasses No 11/02/2014 2:44 PM EDHemalatha Moreno RN [facility] 11-02-2014 Do you have serious difficulty walking or climbing stairs No 11/02/2014 2:44 PM EDT Hemalatha Whitehead RN No [facility] 11-02-2014 Do you have difficul ty dressing or bathing No 11/02/2014 2:44 PM EDT Hemalatha Whitehead RN No [facility] 11-02-2014 Because of a physica l, mental, or emotional condition, do you have difficulty doing errands alone such as visiting a physician's office or shopping No 11/02/2014 2:44 PM EDT Hemalatha Whitehead RN No [facility] Mental Status Date Assessment Result Facility 11-02-2014 Because of a physica l, mental, or emotional condition, do you have serious difficulty concentrating, remembering, or making decisions No 11/02/2014 2:44 PM EDT Hemalatha Whitehead RN No [facility] Clinical Notes 08-08-2021 to 02-12-2025 Gary Kelly, DO - 12/22/2024 2:27 PM EDTCRafael roberts APRN.INSTALLATION COORDINATOR - 12/01/2024 1:20 PM EDT Note Date & Type Note Facility 02-12-2025 Note HNO ID: [id number] Author: ANA LILIA MELENDEZ RDMS Service: ? Author Type: [employer] Type: Progress Notes Filed: 02/12/2025 14:49 Note Text: Radiology Service Progress Note PATIENT NAME: Renetta Pink DATE OF SERVICE: February 12, 2025 TIME: 2:49 PM PATIENT IDENTITY VERIFICATION COMPLETED USING TWO (2) IDENTIFIERS: Name and Date of confirmed by patient verbally. FALL SCREENING: Has the patient had 2 falls in the last year or 1 fall with injury or currently using an Ambulatory Assistive Device (Walker, Cane, Wheelchair, Crutches, etc.)? No PATIENT GENDER DATA: Assigned male at PATIENT RELEVANT IMPLANT DATA REVIEWED: Not Applicable PATIENT PRESENTS WITH AN IMPLANTABLE OR ATTACHED BEAM CARRIER HAULER PUSHER: No RADIOLOGY DEPARTMENT: Ultrasound PERIPHERAL IV DATA: Not applicable SIGNED BY: Ana Lilia Melendez RDMS RVT February 12, 2025 2:49 PM [facility] 02-09-2025 Note HNO ID: [id number] Author: BRISEYDA DELGADO APRN.INSTALLATION COORDINATOR Service: ? Author Type: Nurse Practitioner Type: Progress Notes Filed: 02/09/2025 09:24 Note Text: Department of Kidney Medicine [facility] Recording using ambient [employer] software for draft documentation of the visit was discussed with the patient/authorized community health representative; all questions welcomed and answered. Patient/authorized community health representative agreed to proceed Chief complaint: The patient is an 84-year-old male with CKD, BPH, HTN, DMII, HLD, AV block, nephrolithiasis, and bladder neck obstruction, presenting for nephrology follow-up at the request of his PCP due to worsening renal function. The patient was last seen by Dr. Julio on 08/19/2024. He reports feeling well overall with no urinary symptoms, including no dysuria, no sensation of incomplete bladder emptying, and no nocturia. He typically voids every 5-6 hours and denies chest pain, dyspnea, or lower extremity edema. He drinks 3 cups of caffeinated coffee daily, approximately 16 oz of water per day, and occasionally drinks Diet Coke. He does not take ibuprofen or other NSAIDs, using Tylenol only as needed, though he reports no current pain. He has not checked home blood pressures recently, but recalls prior readings ranging from 120-140 mmHg systolic. He does not check blood glucose at home and maintains a low-carbohydrate diet. He takes amlodipine and doxazosin at night, and losartan twice daily, with the morning dose taken around 0600. He is also on a statin. He underwent TURP in 09/2012 and follows with urology, most recently seen by Dr. Hare in 02/2024, with his next appointment scheduled for 02/16. Recent MRI in 02/2024 showed trace ascites, bladder wall trabeculation, bladder diverticula, and stable bilateral Bosniak I and II simple and hemorrhagic renal cysts (largest 11.1 cm right, 14.6 cm left), with no enhancing renal lesions, no hydronephrosis, and stable mild bilateral adrenal thickening. His baseline creatinine has been approximately 1.5 since 2015, with recent values rising to 1.7 in 12/2024 (eGFR 38, CKD 3B). Most recent A1c in 11/2024 was 6.1. He has a poorly defined M-protein with normal kappa/lambda ratio in 06/2023 and consistently low IgA. He was seen by hematology in 12/2024, who recommended annual follow-up and noted no evidence of kidney issues on 24-hour urine collection. Problem List Reviewed PAST MEDICAL HISTORY Diagnosis Date Benign neoplasm of colon Bronchitis Diabetes mellitus, type 2 (HCC) diet controlled Diverticulosis of small intestine (without mention of hemorrhage) First degree atrioventricular block Hypertensive kidney disease, benign Internal hemorrhoids without mention of complication Pure hypercholesterolemia Sinusitis SVT (supraventricular tachycardia) (HCC) Syncope Current Outpatient Medications Medication Sig cetirizine (ZYRTEC) 10 mg tablet Take 1 tablet by mouth once daily. amLODIPine (NORVASC) 10 mg tablet Take 1 tablet by mouth once daily. losartan (COZAAR) 50 mg tablet Take 1 tablet by mouth two times a day. pantoprazole DR (PROTONIX) 40 mg tablet Take 1 tablet by mouth once daily. Tadalafil (CIALIS) 20 mg tablet Take 1 tablet by mouth as needed. Take 30-60 minutes prior to sexual activity doxazosin (CARDURA) 4 mg tablet Take 1 tablet by mouth daily at bedtime. fluticasone (FLONASE) 50 mcg/actuation nasal spray Use 2 Sprays in each nostril once daily. Rinse mouth after use. simvastatin (ZOCOR) 20 mg tablet Take 1 tablet by mouth daily at bedtime. ergocalciferol, vitamin D2, (VITAMIN D2 ORAL) Take 2 capsules by mouth once daily. Aspirin 81 mg Tab Take 81 mg by mouth once daily. MULTIVITAMIN TAB Take one(1) tablet daily. No current facility-administered medications for this visit. ALLERGIES Allergen Reactions Lisinopril Intolerance Victoriano Cough REVIEW OF SYSTEMS: Constitutional: No fevers, chills, weight loss Cardiovascular: No chest pain, MONTERROSO, SOB, palpitations Respiratory: No cough, hemoptysis Genitourinary: No dysuria, polyuria Neurological: No headaches, seizures, paresthesias Psychiatric: No depression, anxiety PHYSICAL EXAM: BP: Resp 12 Ht 177.8 cm (5' 10") Wt 86.6 kg (191 lb) SpO2 98% BMI 27.41 kg/m? BP - standardized method Pulse 1 BP #1: 141/79 Pulse #1: 61 beats/min 2 BP #2 : 151/71 Pulse #2 : 61 beats/min 3 BP #3 : 148/69 Pulse #3 : 61 beats/min Average Average BP: 146/73 Average Pulse: 61 beats/min Orthostatic vitals Supine Sitting Standing BP cuff location BP cuff location: Right upper arm BP cuff size BP cuff size: regular adult Comments for BP values First BP (right) First BP (left) Constitutional: No acute distress, Responsive, Normal habitus, and Well-nourished Cardiovascular:No peripheral edema Regular rate and rhythm, normal S1 and S2, no murmurs Respiratory: Normal respir (more content not included)... [facility] 12-22-2024 Note HNO ID: [id number] Author: GARY KELLY, DO Service: ? Author Type: Physician Type: Progress Notes Filed: 12/22/2024 14:57 Note Text: HPI: The patient is a 84-year-old male with a past medical history significant for hypertension, hyperlipidemia, first-degree AV block, colon polyps, BPH, CKD stage III, type 2 diabetes, 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 No MS pain. No symptoms of sensory neuropathy. Presents for ongoing hematologic management. Interim history: No complaints. No acute illnesses since last seen. PAST MEDICAL HISTORY Diagnosis Date Benign neoplasm [...] Take 1 tablet by mouth once daily. amLODIPine (NORVASC) 10 mg tablet Take 1 tablet by mouth once daily. losartan (COZAAR) 50 mg tablet Take 1 tablet by mouth two times a day. pantoprazole DR (PROTONIX) 40 mg tablet Take 1 tablet by mouth once daily. Tadalafil (CIALIS) 20 mg tablet Take 1 tablet by mouth as needed. Take 30-60 minutes prior to sexual activity doxazosin (CARDURA) 4 mg tablet Take 1 tablet by mouth daily at bedtime. fluticasone (FLONASE) 50 mcg/actuation nasal spray Use 2 Sprays in each nostril once daily. Rinse mouth after use. simvastatin (ZOCOR) 20 mg tablet Take 1 [...] Never Used Substance Use Topics Alcohol use: Not Currently Drug use: No Family History Problem Relation [...] Never Used Substance Use Topics Alcohol use: Not Currently Drug use: No Family History Problem Relation Age of Onset Stroke Mother dm Hypertension Mother Diabetes Mother Heart disease Mother Heart Father dm Heart disease Father Diabetes Father Diabetes Sister Diabetes Sister Heart Brother dm Diabetes Brother other (brain cancer) Brother dm PHYSICAL EXAM: Vitals: Blood pressure 135/75, pulse 68, temperature 36.6 ?C (97.8 ?F), temperature source Temporal, height 178 cm (5' 10.08"), weight 87.1 kg (192 lb), SpO2 99%. Well-appearing and in no acute distress. EYES: Sclerae are anicteric bilaterally. LYMPHATIC: There is no palpable cervical, supraclavicular adenopathy. RESPIRATORY: Inspiratory breath sounds are of normal intensity in all [place]. No rales, wheezes or rhonchi. CARDIOVASCULAR: Rhythm is regular. ABDOMEN: The abdomen is nondistended. No splenomegaly or hepatomegaly. No tenderness. SKIN: No jaundice. ASSESSMENT/PLAN: (D47.2) MGUS (monoclonal gammopathy of unknown significance) (primary encounter diagnosis) Assessment: -Low-level (more content not included)... 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 No MS pain. No symptoms of sensory neuropathy. Presents for ongoing hematologic management. Interim history: No complaints. No acute illnesses since last seen. PAST MEDICAL HISTORY Diagnosis Date Benign neoplasm [...] Take 1 tablet by mouth once daily. amLODIPine (NORVASC) 10 mg tablet Take 1 tablet by mouth once daily. losartan (COZAAR) 50 mg tablet Take 1 tablet by mouth two times a day. pantoprazole DR (PROTONIX) 40 mg tablet Take 1 tablet by mouth once daily. Tadalafil (CIALIS) 20 mg tablet Take 1 tablet by mouth as needed. Take 30-60 minutes prior to sexual activity doxazosin (CARDURA) 4 mg tablet Take 1 tablet by mouth daily at bedtime. fluticasone (FLONASE) 50 mcg/actuation nasal spray Use 2 Sprays in each nostril once daily. Rinse mouth after use. simvastatin (ZOCOR) 20 mg tablet Take 1 [...] Never Used Substance Use Topics Alcohol use: Not Currently Drug use: No Family History Problem Relation [...] Never Used Substance Use Topics Alcohol use: Not Currently Drug use: No Family History Problem Relation Age of Onset Stroke Mother dm Hypertension Mother Diabetes Mother Heart disease Mother Heart Father dm Heart disease Father Diabetes Father Diabetes Sister Diabetes Sister Heart Brother dm Diabetes Brother other (brain cancer) Brother dm PHYSICAL EXAM: Vitals: Blood pressure 135/75, pulse 68, temperature 36.6 C (97.8 F), temperature source Temporal, height 178 cm (5' 10.08"), weight 87.1 kg (192 lb), SpO2 99%. Well-appearing and in no acute distress. EYES: Sclerae are anicteric bilaterally. LYMPHATIC: There is no palpable cervical, supraclavicular adenopathy. RESPIRATORY: Inspiratory breath sounds are of normal intensity in all [place]. No rales, wheezes or rhonchi. CARDIOVASCULAR: Rhythm is regular. ABDOMEN: The abdomen is nondistended. No splenomegaly or hepatomegaly. No tenderness. SKIN: No jaundice. ASSESSMENT/PLAN: (D47.2) MGUS (monoclonal gammopathy of unknown significance) (primary encounter diagnosis) Assessment: -Low-level IgG kappa MGUS. -Stable over the last year. -Light chain ratio remains normal. -Reviewed labs. Small increase in serum Cr. Discussed obtaining 24 hour urine to further characterize. - Whole-body CT scan 2023 demonstrated no evidence of lytic lesions. Plan: -24 hour urine collection. -Will follow up with him and nephrology. Portions of this documentation were copied and pasted from my previous office visit note dated 12/31/2023 in order to provide a cohesive continuity of the history. The note has been reviewed and edited and updated as necessary. I spent a total of 20 minutes on the date of the service which included preparing to see the patient, [id number] patient care, completing clinical documentation, obtaining and/or reviewing separately obtained history, performing a medically appropriate examination, counseling and educating the patient/family/caregiver, ordering medications, tests, or procedures, communicating with other HCPs (not separately reported), and communicating results to the patient/family/caregiver. Gary Kelly DO documented in this encounter [facility] 12-01-2024 History of Present illness Narrative Images from the original note were not included. Renetta Pink is a 83 year old male here for a Medicare wellness visit. Medicare Health Risk Assessment General Health Very good Exercise: Minutes/Day 30 min Exercise: Days/Week 7 days Alcohol: Daily Use 2-3 times a week Alcohol: Drinks/Day 1 or 2 Alcohol: 6 or more drinks Never Feel off balance No Concerns: Teeth/Dentures No Concerns: Sexual function No Troubled by feelings None of the above Frequency: Eating healthy diet Nearly every day ADLs requiring help None of the above Safety precautions in home/vehicle Yes Smoke, vape, chews tobacco No Difficulty hearing No Difficulty seeing No Current Providers Specialists: I have reviewed specialist-related care of the patient in the medical record. Current care team: Patient Care Team: Jenae Savage MD as PCP - General (Family Medicine) Ralph Garcia MD as Specialty Network Systems Engineer (Cardiology) Juan Manuel Alvarado MD as Specialty Network Systems Engineer (Cardiology) Janusz Davenport MD (Urology) Ángel Julio DO (Nephrology) Rafael Ramirez APRN.CNP as Leasing Agent (Family Medicine) Outside specialists seen: Cardio-Dr. Garcia, Dr. Fish-Eye, Nephrology, Urology, Dentist, Dr. Fish-Derm Medical/Family history review Reviewed and updated problem list, medical/surgical/family/social history, medications, and allergies. Opioid use review Opioid Medications (last 90 days) No data to display Anxiety/Depression screening PHQ-2 Score: 0 (Lower risk for depression) KURTIS-2 Score: 0 (Lower risk for anxiety) Recommendation: no further intervention at this time Cognitive screening Mini Cog Score: 4 Cognitive screening reviewed and Recommended referral for further evaluation (score 0-2). Functional Observation Was the patient's Timed Up & Go test unsteady or >= 12 seconds? No Advance Care Planning Surrogate decision maker and/or advance care plan documented Measurements BP 124/71 Pulse 73 SpO2 98% Vision Screening: Follows with optometry/ophthalmology Assessment/Plan Medicare annual wellness visit, subsequent (Z00.00) - Counseled on healthy diet and regular exercise - Fall avoidance information provided - Personalized prevention plan provided Rafael Ramirez APRN.INSTALLATION COORDINATOR Additional Concerns The following concerns were also discussed with the patient: Renetta Pink is a 83-year-old male with a history of CKD, presenting for follow-up on recent lab results. Renetta recently had lab work done, which showed a hemoglobin A1c of 6.1%, LDL of 74 mg/dL, glucose of 124 mg/dL, BUN decreased to within normal limits, and creatinine increased from 1.51 to 1.71 mg/dL over the past year. GFR also decreased to below 40 mL/min/1.73m for the first time. He denies any recent illnesses, changes in medications, or increased use of ibuprofen. He is currently taking Tylenol, losartan 50 mg, simvastatin, doxazosin at night, amlodipine, and aspirin. He denies taking any new supplements outside of his normal multivitamins. 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 He denies any issues with activity such as chest pain, dyspnea, dizziness, or syncope. He does report feeling a little tired and notes that his energy levels are not as high as they used to be. He also mentions occasional swelling in his left ankle, especially at the end of the day. PHYSICAL EXAM BP 124/71 Pulse 73 SpO2 98% GENERAL: well appearing, alert, in no acute distress CARDIOVASCULAR: regular rate and rhythm. No murmur, rubs or gallops. PULMONARY: clear to auscultation, no wheezing, rhonchi, or crackles ABDOMEN: soft, non-tender, non-distended, no masses or organomegaly EXTREMITY: no lower extremity edema. No skin discoloration. Latest Ref Rn 11/26/2024 Protein, Total 6.3 - 8.0 g/dL 7.2 Albumin 3.9 - 4.9 g/dL 4.3 Calcium 8.5 - 10.2 mg/dL 9.7 Bilirubin, Total 0.2 - 1.3 mg/dL 1.0 Alkaline Phosphatase 38 - 113 U/L 48 AST 14 - 40 U/L 15 ALT 10 - 54 U/L 14 Glucose 74 - 99 mg/dL 124 (H) BUN 9 - 24 mg/dL 33 (H) Creatinine 0.73 - 1.22 mg/dL 1.71 (H) Sodium 136 - 144 mmol/L 139 Potassium 3.7 - 5.1 mmol/L 4.7 Chloride 98 - 107 mmol/L 106 CO2 22 - 30 mmol/L 22 Anion Gap 8 - 15 mmol/L 11 eGFR >=60 mL/min/1.73m 39 (L) Cholesterol, Total <200 mg/dL 137 Triglyceride <150 mg/dL 68 HDL Cholesterol >39 mg/dL 49 LDL Cholesterol, Calculated <100 mg/dL 74 Non HDL Cholesterol <130 mg/dL 88 VLDL Cholesterol <30 mg/dL 10 TC:HDL Ratio <5.10 2.80 LDL:HDL Ratio <2.54 1.51 Fasting Time hrs 12 Hemoglobin A1C 4.3 - 5.6 % 6.1 (H) Estimated Average Glucose mg/dL 128 1. Type 2 diabetes 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, without long-term current use of insulin, unspecified whether stage 3a or 3b CKD (HCC) (E11.22) 2. Stage 3b chronic kidney disease (HCC) (N18.32) Most recent labs show HbA1c 6.1%, LDL 74 mg/dL, glucose 124 mg/dL, BUN improved toward normal, but creatinine increased from 1.51 to 1.71 mg/dL with GFR dipping below 40 for the first time. No recent illness, NSAID use, or dietary changes reported. Reviewed nephrology notes from Dr. Snell in August, who was not concerned at that time. - Continue losartan 50 mg daily for renal protection. - Repeat kidney function labs in 2 weeks; instructed patient to ensure adequate hydration prior to testing. - Will notify Dr. Julio if creatinine remains elevated after repeat labs. - Advised patient to consult medicare nurse before starting magnesium glycinate supplement. 3. Essential hypertension, benign (I10) Blood pressure well controlled on current regimen of losartan, amlodipine, and doxazosin. - Continue current antihypertensive medications as prescribed. 4. Hyperlipidemia, unspecified hyperlipidemia type (E78.5) LDL cholesterol at goal (74 mg/dL) on current statin therapy. - Continue simvastatin as prescribed. 5. Gastroesophageal reflux disease without esophagitis (K21.9) Condition stable on current therapy. - Continue Protonix as prescribed. 6. Screening for depression (Z13.31) 7. Encounter for screening examination for other mental health and behavioral disorders (Z13.39) Rafaelchristophe Ramirez APRN.CNP RTO in 6 months, sooner if needed. Repeat BMP in 2 weeks. documented in this encounter [facility] 12-01-2024 Note HNO ID: [id number] Author: RAFAEL RAMIREZ APRN.CNP Service: ? Author Type: Nurse Practitioner Type: Progress Notes Filed: 12/01/2024 13:28 Note Text: Renetta Pink is a 83 year old male here for a Medicare wellness visit. Medicare Health Risk Assessment General Health Very good Exercise: Minutes/Day 30 min Exercise: Days/Week 7 days Alcohol: Daily Use 2-3 times a week Alcohol: Drinks/Day 1 or 2 Alcohol: 6 or more drinks Never Feel off balance No Concerns: Teeth/Dentures No Concerns: Sexual function No Troubled by feelings None of the above Frequency: Eating healthy diet Nearly every day ADLs requiring help None of the above Safety precautions in home/vehicle Yes Smoke, vape, chews tobacco No Difficulty hearing No Difficulty seeing No Current Providers Specialists: I have reviewed specialist-related care of the patient in the medical record. Current care team: Patient Care Team: Jenae Savage MD as PCP - General (Family Medicine) Ralph Garcia MD as Specialty Network Systems Engineer (Cardiology) Juan Manuel Alvarado MD as Specialty Network Systems Engineer (Cardiology) Janusz Davenport MD (Urology) Ángel Julio DO (Nephrology) Rafael Ramirez APRN.CNP as Leasing Agent (Family Medicine) Outside specialists seen: Cardio-Dr. Garcia, Dr. Fish-Eye, Nephrology, Urology, Dentist, Dr. Fish-Derm Medical/Family history review Reviewed and updated problem list, medical/surgical/family/social history, medications, and allergies. Opioid use review Opioid Medications (last 90 days) No data to display Anxiety/Depression screening PHQ-2 Score: 0 (Lower risk for depression) KURTIS-2 Score: 0 (Lower risk for anxiety) Recommendation: no further intervention at this time Cognitive screening Mini Cog Score: 4 Cognitive screening reviewed and Recommended referral for further evaluation (score 0-2). Functional Observation Was the patient's Timed Up AND Go test unsteady or >= 12 seconds? No Advance Care Planning Surrogate decision maker and/or advance care plan documented Measurements BP 124/71 Pulse 73 SpO2 98% Vision Screening: Follows with optometry/ophthalmology Assessment/Plan Medicare annual wellness visit, subsequent (Z00.00) - Counseled on healthy diet and regular exercise - Fall avoidance information provided - Personalized prevention plan provided Rafael Ramirez APRN.INSTALLATION COORDINATOR Additional Concerns The following concerns were also discussed with the patient: Renetta Pink is a 83-year-old male with a history of CKD, presenting for follow-up on recent lab results. Renetta recently had lab work done, which showed a hemoglobin A1c of 6.1%, LDL of 74 mg/dL, glucose of 124 mg/dL, BUN decreased to within normal limits, and creatinine increased from 1.51 to 1.71 mg/dL over the past year. GFR also decreased to below 40 mL/min/1.73m? for the first time. He denies any recent illnesses, changes in medications, or increased use of ibuprofen. He is currently taking Tylenol, losartan 50 mg, simvastatin, doxazosin at night, amlodipine, and aspirin. He denies taking any new supplements outside of his normal multivitamins. 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 He denies any issues with activity such as chest pain, dyspnea, dizziness, or syncope. He does report feeling a little tired and notes that his energy levels are not as high as they used to be. He also mentions occasional swelling in his left ankle, especially at the end of the day. PHYSICAL EXAM BP 124/71 Pulse 73 SpO2 98% GENERAL: well appearing, alert, in no acute distress CARDIOVASCULAR: regular rate and rhythm. No murmur, rubs or gallops. PULMONARY: clear to auscultation, no wheezing, rhonchi, or crackles ABDOMEN: soft, non-tender, non-distended, no masses or organomegaly EXTREMITY: no lower extremity edema. No skin discoloration. Latest Ref Rng 11/26/2024 Protein, Total 6.3 - 8.0 g/dL 7.2 Albumin 3.9 - 4.9 g/dL 4.3 Calcium 8.5 - 10.2 mg/dL 9.7 Bilirubin, Total 0.2 - 1.3 mg/dL 1.0 Alkaline Phosphatase 38 - 113 U/L 48 AST 14 - 40 U/L 15 ALT 10 - 54 U/L 14 Glucose 74 - 99 mg/dL 124 (H) BUN 9 - 24 mg/dL 33 (H) Creatinine 0.73 - 1.22 mg/dL 1.71 (H) Sodium 136 - 144 mmol/L 139 Potassium 3.7 - 5.1 mmol/L 4.7 Chloride 98 - 107 mmol/L 106 CO2 22 - 30 mmol/L 22 Anion Gap 8 - 15 mmol/L 11 eGFR >=60 mL/min/1.73m? 39 (L) Cholesterol, Total <200 mg/dL 137 Triglyceride <150 mg/dL 68 HDL Cholesterol >39 mg/dL 49 LDL Cholesterol, Calculated <100 mg/dL 74 Non HDL Cholesterol <130 mg/dL 88 VLDL Cholesterol <30 mg/dL 10 TC:HDL Ratio <5.10 2.80 LDL:HDL Ratio <2.54 1.51 Fasting Time hrs 12 Hemoglobin A1C 4.3 - 5.6 % 6.1 (H) Estimated Average Glucose mg/dL 128 1. Type 2 diabetes 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, without long-term current use of insulin, unspecified whether stage 3a or 3b CKD (HCC) (E11.22) 2. Stage 3b chronic kidney disea (more content not included)... [facility] 12-01-2024 Evaluation note Diagnosis Type 2 diabetes 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, without long-term current use of insulin, unspecified whether stage 3a or 3b CKD (HCC)- Primary Essential hypertension, benign Stage 3b chronic kidney disease (HCC) Hyperlipidemia, unspecified hyperlipidemia type Gastroesophageal reflux disease without esophagitis Esophageal reflux Screening for depression Encounter for screening examination for other mental health and behavioral disorders documented in this encounter [facility]05-13-2025 History of Present illness Narrative* Ángel Julio, - 08/19/2024 3:20 PM EDT Images from the original note were not included. Department of Kidney Medicine Medical Specialties [facility] CHIEF COMPLAINT: Chronic kidney disease stage IIIb HPI: Mr. Pink is a 83 year old male with a PMHx of hypertension, diabetes mellitus, and hyperlipidemia who presents with chronic kidney disease stage IIIb. Chronic kidney disease stage IIIb etiology likely to obstructive uropathy, hypertensive nephrosclerosis, and diabetic nephropathy. Established 08/08/2021 - Recommended urology follow up 05/05/2022 - No recent issues. Renal labs every 6 months. Follow up in 12 months. 06/11/2023 - Followed with hematology/oncology for IgG kappa MGUS. 24 hour urine with a poorly defined region of restricted mobility that may represent an M protein. Continue current medications. Follow up yearly or prn. Stable renal function. ACR 54 MEDICATIONS: amLODIPine (NORVASC) 10 mg tablet Take 1 tablet by mouth once daily. losartan (COZAAR) 50 mg tablet Take 1 tablet by mouth two times a day. pantoprazole DR (PROTONIX) 40 mg tablet Take 1 tablet by mouth once daily. Tadalafil (CIALIS) 20 mg tablet Take 1 tablet by mouth as needed. Take 30-60 minutes prior to sexual activity cetirizine (ZYRTEC) 10 mg tablet Take 1 tablet by mouth once daily. doxazosin (CARDURA) 4 mg tablet Take 1 tablet by mouth daily at bedtime. blood sugar diagnostic (FREESTYLE LITE STRIPS) test strip Test blood sugar(s) 1 times daily. Dx: Type 2 DM - Controlled E11.9 Insulin: No (Patient not taking: Reported on 08/19/2024) fluticasone (FLONASE) 50 mcg/actuation nasal spray Use 2 Sprays in each nostril once daily. Rinse mouth after use. simvastatin (ZOCOR) 20 mg tablet Take 1 tablet by mouth daily at bedtime. ergocalciferol, vitamin D2, (VITAMIN D2 ORAL) Take 2 capsules by mouth once daily. Aspirin 81 mg Tab Take 81 mg by mouth once daily. MULTIVITAMIN TAB Take one(1) tablet daily. ALLERGIES: ALLERGIES Allergen Reactions Lisinopril Intolerance Victoriano Cough PHYSICAL EXAM: BP 146/69 Pulse 65 Ht 178 cm (5' 10.08") Wt 85.7 kg (188 lb 15 oz) BMI 27.05kg/m BP - standardized method Pulse 1 BP #1: 140/73 Pulse #1: 64 beats/min 2 BP #2 : 150/67 Pulse #2 : 65 beats/min 3 BP #3 : 147/67 Pulse #3 : 65 beats/min Average Average BP: 146/69 Average Pulse: 65 beats/min Orthostatic vitals Supine Sitting Standing BP cuff location BP cuff location: Left upper arm BP cuff size BP cuff size: large adult Comments for BP values First BP (right) First BP (left) Constitutional: No acute distress, Responsive, Normal habitus, and Well-nourished Eyes: Conjunctiva clear and PERRL Ear, Nose, and Throat: Hearing normal, Lips normal, and Dentition normal Neck:Trachea midline No jugular venous distension Cardiovascular:Regular rate and rhythm, normal S1 and S2, no murmurs, rubs, or gallops No peripheral edema Respiratory: Normal respiratory effort. Lungs clear bilaterally. Abdomen:Soft, non-tender, non-distended. Normal bowel sounds. No hepatosplenomegaly. Musculoskeletal: No clubbing or cyanosis of digits., Normocephalic., and No muscle weakness, joint tenderness, or joint effusions. Neurologic:CN II-XII intact and Normal sensation Psychiatric: Alert and oriented x self, place, time, and setting Normal mood/affect DATA: Diagnostic tests reviewed for today's visit: Blood work, imaging studies, and office notes were reviewed in [facility] ASSESSMENT: Mr. Pink is a 83 year old male with a PMHx of hypertension, diabetes mellitus, and hyperlipidemia who presents with chronic kidney disease stage IIIb. Chronic kidney disease stage IIIb - Etiology likely to obstructive uropathy, hypertensive nephrosclerosis, and diabetic nephropathy. Normal renal function 2013 AUDI 08/20/2012. Renal function returned to baseline. Acute urinary retention. TURP 09/2012 with mild AUDI. Renal function stable since that time - ACR negative - US kidney/bladder with increased renal echogenicity and a nodular enlarged prostate gland that invaginates into the bladder lumen which demonstrates wall trabeculation 2. Anemia of renal disease - Hemoglobin at goal 3. Secondary hyperparathyroidism - Calcium controlled 4. Primary hypertension - Controlled at home on current medications Hypertension regimen: - Norvasc 10 mg daily - Losartan 50 mg daily 5. Hyperlipidemia - Statin 6. DMII: Well controlled diabetes since 2013 7. BPH - Yearly follow ups with urology 8. MGUS - Followed PLAN: - Continue current medications - Follow up yearly, sooner prn Disclosures: Parts of the current progress note may have been copied from a previous note, updates have been made as clinically relevant. I spent a total of 40 minutes on the date of the service which included preparing to see the patient, [id number] patient care, completing clinical documentation, and obtaining and/or reviewing separately obtained history. Ángel Julio DO Staff, Department of Kidney Medicine 08/19/2024 3:11 PM CC: PRIMARY CARE PHYSICIAN: Jenae Savage [facility] NoteHNO ID: [id number] Author: ÁNGEL JULIO DO Service: ? Author Type: Physician Type: Progress Notes Filed: 08/19/2024 15:12 Note Text: Department of Kidney Medicine Medical Specialties [facility] CHIEF COMPLAINT: Chronic kidney disease stage IIIb HPI: Mr. Pink is a 83 year old male with a PMHx of hypertension, diabetes mellitus, and hyperlipidemia who presents with chronic kidney disease stage IIIb. Chronic kidney disease stage IIIb etiology likely to obstructive uropathy, hypertensive nephrosclerosis, and diabetic nephropathy. Established 08/08/2021 - Recommended urology follow up 05/05/2022 - No recent issues. Renal labs every 6 months. Follow up in 12 months. 06/11/2023 - Followed with hematology/oncology for IgG kappa MGUS. 24 hour urine with a poorly defined region of restricted mobility that may represent an M protein. Continue current medications. Follow up yearly or prn. Stable renal function. ACR 54 MEDICATIONS: amLODIPine (NORVASC) 10 mg tablet Take 1 tablet by mouth once daily. losartan (COZAAR) 50 mg tablet Take 1 tablet by mouth two times a day. pantoprazole DR (PROTONIX) 40 mg tablet Take 1 tablet by mouth once daily. Tadalafil (CIALIS) 20 mg tablet Take 1 tablet by mouth as needed. Take 30-60 minutes prior to sexual activity cetirizine (ZYRTEC) 10 mg tablet Take 1 tablet by mouth once daily. doxazosin (CARDURA) 4 mg tablet Take 1 tablet by mouth daily at bedtime. blood sugar diagnostic (FREESTYLE LITE STRIPS) test strip Test blood sugar(s) 1 times daily. Dx: Type 2 DM - Controlled E11.9 Insulin: No (Patient not taking: Reported on 08/19/2024) fluticasone (FLONASE) 50 mcg/actuation nasal spray Use 2 Sprays in each nostril once daily. Rinse mouth after use. simvastatin (ZOCOR) 20 mg tablet Take 1 tablet by mouth daily at bedtime. ergocalciferol, vitamin D2, (VITAMIN D2 ORAL) Take 2 capsules by mouth once daily. Aspirin 81 mg Tab Take 81 mg by mouth once daily. MULTIVITAMIN TAB Take one(1) tablet daily. ALLERGIES: ALLERGIES Allergen Reactions Lisinopril Intolerance Victoriano Cough PHYSICAL EXAM: BP 146/69 Pulse 65 Ht 178 cm (5' 10.08") Wt 85.7 kg (188 lb 15 oz) BMI 27.05 kg/m? BP - standardized method Pulse 1 BP #1: 140/73 Pulse #1: 64 beats/min 2 BP #2 : 150/67 Pulse #2 : 65 beats/min 3 BP #3 : 147/67 Pulse #3 : 65 beats/min Average Average BP: 146/69 Average Pulse: 65 beats/min Orthostatic vitals Supine Sitting Standing BP cuff location BP cuff location: Left upper arm BP cuff size BP cuff size: large adult Comments for BP values First BP (right) First BP (left) Constitutional: No acute distress, Responsive, Normal habitus, and Well-nourished Eyes: Conjunctiva clear and PERRL Ear, Nose, and Throat: Hearing normal, Lips normal, and Dentition normal Neck:Trachea midline No jugular venous distension Cardiovascular:Regular rate and rhythm, normal S1 and S2, no murmurs, rubs, or gallops No peripheral edema Respiratory: Normal respiratory effort. Lungs clear bilaterally. Abdomen:Soft, non-tender, non-distended. Normal bowel sounds. No hepatosplenomegaly. Musculoskeletal: No clubbing or cyanosis of digits., Normocephalic., and No muscle weakness, joint tenderness, or joint effusions. Neurologic:CN II-XII intact and Normal sensation Psychiatric: Alert and oriented x self, place, time, and setting Normal mood/affect DATA: Diagnostic tests reviewed for today's visit: Blood work, imaging studies, and office notes were reviewed in [facility] ASSESSMENT: Mr. Pink is a 83 year old male with a PMHx of hypertension, diabetes mellitus, and hyperlipidemia who presents with chronic kidney disease stage IIIb. Chronic kidney disease stage IIIb - Etiology likely to obstructive uropathy, hypertensive nephrosclerosis, and diabetic nephropathy. Normal renal function 2013 AUDI 08/20/2012. Renal function returned to baseline. Acute urinary retention. TURP 09/2012 with mild AUDI. Renal function stable since that time - ACR negative - US kidney/bladder with increased renal echogenicity and a nodular enlarged prostate gland that invaginates into the bladder lumen which demonstrates wall trabeculation 2. Anemia of renal disease - Hemoglobin at goal 3. Secondary hyperparathyroidism - Calcium controlled 4. Primary hypertension - Controlled at home on current medications Hypertension regimen: - Norvasc 10 mg daily - Losartan 50 mg daily 5. Hyperlipidemia - Statin 6. DMII: Well controlled diabetes since 2013 7. BPH - Yearly follow ups with urology 8. MGUS - Followed PLAN: - Continue current medications - Follow up yearly, sooner prn Disclosures: Parts of the current progress note may have been copied from a previous note, updates have been made as clinically relevant. I spent a total of 40 minutes on the date of the service which included preparing to see the patient, [id number] patient (more content not included)...[facility]05-12-2025 NoteHNO ID: [id number] Author: JANUSZ DAVENPORT MD Service: ? Author Type: Physician Type: Progress Notes Filed: 09/28/2024 21:02 Note Text: [facility] UROLOGY ESTABLISHED PATIENT CLINIC NOTE UROL RASHEEDA [facility] PATIENT INFO: Renetta Pink AGE: [id number] year old PCP: Jenae Savage MD IMPRESSION/PLAN: 1. BPH with obstruction/lower urinary tract symptoms - ICD9: 600.01, 599.69, ICD10: N40.1, N13.8 (primary diagnosis) Continue taking doxazosin 4 mg at night for prostate symptoms. 2. ED (erectile dysfunction) of organic origin - ICD9: 607.84, ICD10: N52.9 Regarding the generic Cialis, know that doubling the dose is not recommended. If you plan for intercourse, consider taking your doxazosin earlier in the day to possibly improve the quality of your orgasm; however, maintaining comfortable urination should remain the priority. 3. Renal cyst - ICD9: 753.10, ICD10: N28.1 Your recent kidney imaging shows stable findings with bilateral renal cysts. Although the right kidney cyst shows some changes that may suggest a rupture, you are not experiencing pain or kidney function issues. No further action is needed on this at present. 4. Left nephrolithiasis - ICD9: 592.0, ICD10: N20.0 Stable, asymptomatic REASON FOR VISIT: 6 mo follow up HPI: Renetta Pink returns for continuing evaluation and management. BPH: - Managed with doxazosin 4 mg QHS. - Denies lightheadedness or dizziness. - No concerns with medication efficacy. Erectile Dysfunction: - Taking tadalafil, reports decreased efficacy with recent refill. - Able to achieve erection but notes issues with ejaculation. - Inquires about potential effects of doxazosin and losartan on ejaculation. Renal Cysts: - Bilateral renal cysts, largest measuring 14 cm on the left. - Recent ER visit for suspected cyst rupture; CT showed changes in the right kidney consistent with rupture. - Denies current pain or discomfort. Nephrolithiasis: - History of kidney stones, last noted in January. - Recent imaging in February showed no stones in the left kidney. UROLOGICAL DATA: Urinalysis: GLUCOSE UA (POCT) 100 08/18/2024 BILIRUBIN UA (POCT) Negative 08/18/2024 KETONE UA (POCT) Negative 08/18/2024 SPECIFIC GRAVITY UA (POCT) 1.010 08/18/2024 HEMOGLOBIN/BLOOD UA (POCT) Negative 08/18/2024 PH UA (POCT) 6.0 08/18/2024 PROTEIN UA (POCT) Negative 08/18/2024 UROBILINOGEN UA (POCT) 0.2 08/18/2024 NITRITE UA (POCT) Negative 08/18/2024 LEUKOCYTES UA (POCT) Negative 08/18/2024 COLOR UA (POCT) Yellow 08/18/2024 CLARITY UA (POCT) Clear 08/18/2024 Post Void Residual, Ultrasound: N/A cc OTHER DATA: PSA (ng/mL) Date Value 05/31/2020 4.11 04/10/2017 6.07 03/10/2016 2.29 05/17/2015 2.18 PSA, Percent Free (%) Date Value 05/31/2020 42 05/17/2015 41 09/28/2014 43 05/15/2014 21 No results found for: "ISOPSA" Creatinine Date Value Ref Range Status 05/22/2024 1.51 (H) 0.73 - 1.22 mg/dL Final 12/24/2023 1.55 (H) 0.73 - 1.22 mg/dL Final 11/16/2023 1.61 (H) 0.73 - 1.22 mg/dL Final 06/20/2023 1.36 (H) 0.73 - 1.22 mg/dL Final No results found for: "TESTOST", "TESTFREE" PMHx/PSHx: see above, otherwise unchanged Rx: reviewed and unchanged ROS: see above, otherwise unchanged Labs: None Imaging: None MEDICATIONS: Current Outpatient Medications Medication Sig amLODIPine (NORVASC) 10 mg tablet Take 1 tablet by mouth once daily. losartan (COZAAR) 50 mg tablet Take 1 tablet by mouth two times a day. pantoprazole DR (PROTONIX) 40 mg tablet Take 1 tablet by mouth once daily. Tadalafil (CIALIS) 20 mg tablet Take 1 tablet by mouth as needed. Take 30-60 minutes prior to sexual activity cetirizine (ZYRTEC) 10 mg tablet Take 1 tablet by mouth once daily. doxazosin (CARDURA) 4 mg tablet Take 1 tablet by mouth daily at bedtime. blood sugar diagnostic (FREESTYLE LITE STRIPS) test strip Test blood sugar(s) 1 times daily. Dx: Type 2 DM - Controlled E11.9 Insulin: No (Patient not taking: Reported on 08/19/2024) fluticasone (FLONASE) 50 mcg/actuation nasal spray Use 2 Sprays in each nostril once daily. Rinse mouth after use. simvastatin (ZOCOR) 20 mg tablet Take 1 [...] well nourished male Psych: euthymic, NAD Neuro: AANDOx3 Inguinal: No lesions, adenopathy, or hernias exam and ANNI deferred FOLLOW UP: 6 mo Visit complexity inherent to evaluation and management associated with medical care services that serve as the continuing focal point for all needed health care services and/or (more content not included)...[facility] 08-18-2024 History of Present illness Narrative* Janusz Davenport MD - 08/18/2024 2:09 PM EDT Images from the original note were not included. [facility] UROLOGY ESTABLISHED PATIENT CLINIC NOTE UROL RASHEEDA FLETCHER PATIENT INFO: Renetta Pink AGE: [age] year old PCP: Jenae Savage MD IMPRESSION/PLAN: 1. BPH with obstruction/lower urinary tract symptoms - ICD9: 600.01, 599.69, ICD10: N40.1, N13.8 (primary diagnosis) Continue taking doxazosin 4 mg at night for prostate symptoms. 2. ED (erectile dysfunction) of organic origin - ICD9: 607.84, ICD10: N52.9 Regarding the generic Cialis, know that doubling the dose is not recommended. If you plan for intercourse, consider taking your doxazosin earlier in the day to possibly improve the quality of your orgasm; however, maintaining comfortable urination should remain the priority. 3. Renal cyst - ICD9: 753.10, ICD10: N28.1 Your recent kidney imaging shows stable findings with bilateral renal cysts. Although the right kidney cyst shows some changes that may suggest a rupture, you are not experiencing pain or kidney function issues. No further action is needed on this at present. 4. Left nephrolithiasis - ICD9: 592.0, ICD10: N20.0 Stable, asymptomatic REASON FOR VISIT: 6 mo follow up HPI: Renetta Pink returns for continuing evaluation and management. BPH: - Managed with doxazosin 4 mg QHS. - Denies lightheadedness or dizziness. - No concerns with medication efficacy. Erectile Dysfunction: - Taking tadalafil, reports decreased efficacy with recent refill. - Able to achieve erection but notes issues with ejaculation. - Inquires about potential effects of doxazosin and losartan on ejaculation. Renal Cysts: - Bilateral renal cysts, largest measuring 14 cm on the left. - Recent ER visit for suspected cyst rupture; CT showed changes in the right kidney consistent withrupture. - Denies current pain or discomfort. Nephrolithiasis: - History of kidney stones, last noted in January. - Recent imaging in February showed no stones in the left kidney. UROLOGICAL DATA: Urinalysis: GLUCOSE UA (POCT) 100 08/18/2024 BILIRUBIN UA (POCT) Negative 08/18/2024 KETONE UA (POCT) Negative 08/18/2024 SPECIFIC GRAVITY UA (POCT) 1.010 08/18/2024 HEMOGLOBIN/BLOOD UA (POCT) Negative 08/18/2024 PH UA (POCT) 6.0 08/18/2024 PROTEIN UA (POCT) Negative 08/18/2024 UROBILINOGEN UA (POCT) 0.2 08/18/2024 NITRITE UA (POCT) Negative 08/18/2024 LEUKOCYTES UA (POCT) Negative 08/18/2024 COLOR UA (POCT) Yellow 08/18/2024 CLARITY UA (POCT) Clear 08/18/2024 Post Void Residual, Ultrasound: N/A cc OTHER DATA: PSA (ng/mL) Date Value 05/31/2020 4.11 04/10/2017 6.07 03/10/2016 2.29 05/17/2015 2.18 PSA, Percent Free (%) Date Value 05/31/2020 42 05/17/2015 41 09/28/2014 43 05/15/2014 21 No results found for: "ISOPSA" Creatinine Date Value Ref Range Status 05/22/2024 1.51 (H) 0.73 - 1.22 mg/dL Final 12/24/2023 1.55 (H) 0.73 - 1.22 mg/dL Final 11/16/2023 1.61 (H) 0.73 - 1.22 mg/dL Final 06/20/2023 1.36 (H) 0.73 - 1.22 mg/dL Final No results found for: "TESTOST", "TESTFREE" PMHx/PSHx: see above, otherwise unchanged Rx: reviewed and unchanged ROS: see above, otherwise unchanged Labs: None Imaging: None MEDICATIONS: Current Outpatient Medications Medication Sig amLODIPine (NORVASC) 10 mg tablet Take 1 tablet by mouth once daily. losartan (COZAAR) 50 mg tablet Take 1 tablet by mouth two times a day. pantoprazole DR (PROTONIX) 40 mg tablet Take 1 tablet by mouth once daily. Tadalafil (CIALIS) 20 mg tablet Take 1 tablet by mouth as needed. Take 30-60 minutes prior to sexual activity cetirizine (ZYRTEC) 10 mg tablet Take 1 tablet by mouth once daily. doxazosin (CARDURA) 4 mg tablet Take 1 tablet by mouth daily at bedtime. blood sugar diagnostic (FREESTYLE LITE STRIPS) test strip Test blood sugar(s) 1 times daily. Dx: Type 2 DM - Controlled E11.9 Insulin: No (Patient not taking: Reported on 08/19/2024) fluticasone (FLONASE) 50 mcg/actuation nasal spray Use 2 Sprays in each nostril once daily. Rinse mouth after use. simvastatin (ZOCOR) 20 mg tablet Take 1 [...] nourished male Psych: euthymic, NAD Neuro: A&Ox3 Inguinal: No lesions, adenopathy, or hernias exam and ANNI deferred FOLLOW UP: 6 mo Visit complexity inherent to evaluation and management associated with medical care services that serve as the continuing focal point for all needed health care services and/or with medical care services that are part of ongoing care related to a patient s single, serious condition or a complex condition. Janusz Davenport M.D, MS Associate Staff [facility] documented in this encounterBerger Hospital04-28-2025 NoteHNO ID: [id number] Author: STAR SHANNON MD Service: ? Author Type: Physician Type: Progress Notes Filed: 08/04/2024 13:40 Note Text: Chief Complaint Patient presents with: head cold: With mucus in throat HPI Renetta Pink is a 83 year old male who presents here today for Above Complaints. Patient complaining of nasal congestion, productive cough with townsend/clear sputum, sore throat, post nasal drip, loss of taste/smell, fatigue, watery stool x 1 which started about 1 week ago. Treating with Flonase, Emergen-C, tylenal, and benkwasi. Symptoms worse with mowing the lawn. Denies fever/chills, SOB, wheezing, chest pain,chest congestion, headache, myalgias, sinus pain/pressure, nausea, vomiting. Sick contacts with grandchildren. Past medical history, appointments, medications, allergies reviewed. [...] (brain cancer) Brother dm Patient Allergies ALLERGIES Allergen Reactions Lisinopril Intolerance Victoriano Cough Current Medications Current Outpatient Medications on File Prior to Visit Medication Sig amLODIPine (NORVASC) 10 mg tablet Take 1 tablet by mouth once daily. losartan (COZAAR) 50 mg tablet Take 1 tablet by mouth two times a day. pantoprazole DR (PROTONIX) 40 mg tablet Take 1 tablet by mouth once daily. Tadalafil (CIALIS) 20 mg tablet Take 1 tablet by mouth as needed. Take 30-60 minutes prior to sexual activity cetirizine (ZYRTEC) 10 mg tablet Take 1 tablet by mouth once daily. doxazosin (CARDURA) 4 mg tablet Take 1 tablet by mouth daily at bedtime. blood sugar diagnostic (FREESTYLE LITE STRIPS) test strip Test blood sugar(s) 1 times daily. Dx: Type 2 DM - Controlled E11.9 Insulin: No fluticasone (FLONASE) 50 mcg/actuation nasal spray Use 2 Sprays in each nostril once daily. Rinse mouth after use. simvastatin (ZOCOR) 20 mg tablet Take 1 [...] 1978 Years since quittin.3 Smokeless tobacco: Never Tobacco comments: quit 50 years ago Vaping Use Vaping status: Never Used Substance Use Topics Alcohol use: No Drug use: No Review of Symptoms REVIEW OF SYSTEMS See HPI EXAM: BP 118/66 Pulse 77 Temp 36.1 ?C (97 ?F) Resp 16 Wt 85.7 kg (189 lb) SpO2 97% BMI 27.06 kg/m? General Appearance: Well appearing, alert, in no acute distress, well-hydrated, well nourished.. Skin: Skin color, texture, turgor normal, no suspicious rashes or lesions. Head: Normocephalic, no masses, lesions, tenderness or abnormalities. Eyes: Anicteric sclera. Pupils are equally round and reactive to light. Extraocular movements are intact. . Ears: External ears normal, canals clear. Nose/Sinuses: Nares normal, septum midline, mucosa normal, no drainage or sinus tenderness. Oropharynx: Lips, mucosa, and tongue normal, teeth and gums normal, oropharynx normal. Neck: Supple, no adenopathy; thyroid symmetric, normal size, no bruits. Lungs: Lungs clear to auscultati (more content not included)...[facility]02-21-2025 History of Present illness Narrative* Rafael Ramirez APRN.INSTALLATION COORDINATOR - 05/30/2024 1:00 PM EST Chief Complaint Patient presents with: Follow Up: 6 month ER F/U: [facility] ER fall HPI Renetta Pink is a 83 year old male who presents here today for Chronic Medical Conditions. and ER Follow Up. Patient is here for routine follow-up. He is here with his . Most recently had a fall, braced himself with his right arm, causing elbow to go into side. Caused a ruptured kidney cyst. He went to emergency room for pain control. His pain is resolved. His labs are completed 10 days after the visit and are stable. Hemoglobin A1c is stable at 6.0%. CBC unremarkable. Following with nephrology for stage III kidney disease. His GFR stable. HYPERLIPIDEMIA: Patient is taking medications: Yes. Patient is watching diet: Yes. Patient denies myalgias: Yes. Patient denies gi upset: Yes Following with cardiology. They have increased his antihypertensives. Despite this increase in amlodipine, patient continues to have elevated blood pressures at home. Suddenly less than 140 systolic.Taking medications as prescribed. Without chest pain, shortness of breath, leg swelling. Occasionally will have some dizziness with positional changes but very infrequently. Past medical history, appointments, medications, allergies reviewed. EXAM: BP 148/74 Pulse 61 Resp 16 Wt 85.7 kg (189 lb) SpO2 98% BMI 27.06 kg/m General Appearance: Well appearing, alert, in no acute distress, well-hydrated, well nourished.. Lungs: Lungs clear to auscultation. No wheezing, rhonchi, rales.. Heart: RRR without murmur, gallop, or rubs. No ectopy. Extremities: No deformities, edema Latest Ref Rng 05/22/2024 WBC 3.70 - 11.00 k/uL 4.61 RBC 4.20 - 6.00 m/uL 4.89 Hemoglobin 13.0 - 17.0 g/dL 13.7 Hematocrit 39.0 - 51.0 % 42.0 MCV 80.0 - 100.0 fL 85.9 MCH 26.0 - 34.0 pg 28.0 MCHC 30.5 - 36.0 g/dL 32.6 RDW-CV 11.5 - 15.0 % 13.6 Platelet Count 150 - 400 k/uL 179 MPV 9.0 - 12.7 fL 9.5 Neut% % 66.6 Abs Neut (ANC) 1.45 - 7.50 k/uL 3.07 Lymph% % 17.8 Abs Lymph 1.00 - 4.00 k/uL 0.82 (L) Roosevelt% % 8.7 Abs Roosevelt <0.87 k/uL 0.40 Eosin% % 6.3 Abs Eosin <0.46 k/uL 0.29 Baso% % 0.4 Abs Baso <0.11 k/uL <0.03 Immature Gran % % 0.2 IMMATURE GRANS (ABS) <0.10 k/uL <0.03 NRBC /100 WBC 0.0 Absolute nRBC <0.01 k/uL <0.01 DTYPE Auto Protein, Total 6.3 - 8.0 g/dL 7.6 Albumin 3.9 - 4.9 g/dL 4.5 Calcium 8.5 - 10.2 mg/dL 10.1 Bilirubin, Total 0.2 - 1.3 mg/dL 1.0 Alkaline Phosphatase 38 - 113 U/L 60 AST 14 - 40 U/L 17 ALT 10 - 54 U/L 21 Glucose 74 - 99 mg/dL 122 (H) BUN 9 - 24 mg/dL 39 (H) Creatinine 0.73 - 1.22 mg/dL 1.51 (H) Sodium 136 - 144 mmol/L 138 Potassium 3.7 - 5.1 mmol/L 4.6 Chloride 98 - 107 mmol/L 107 CO2 22 - 30 mmol/L 23 Anion Gap 8 - 15 mmol/L 8 eGFR >=60 mL/min/1.73m 45 (L) Cholesterol, Total <200 mg/dL 146 Triglyceride <150 mg/dL 61 HDL Cholesterol >39 mg/dL 50 Non HDL Cholesterol <130 mg/dL 96 Fasting Time hrs 12 VLDL Cholesterol <30 mg/dL 12 TC:HDL Ratio <5.10 2.92 LDL Cholesterol <100 mg/dL 84 LDL:HDL Ratio <2.54 1.68 Creatinine, Ur Random (UCRR) 46.8 - 314.5 mg/dL 85.1 Albumin, Urine Random mg/L 46.0 Albumin/Creat Ratio <30 mg/g 54 (H) Hemoglobin A1C 4.3 - 5.6 % 6.0 (H) Estimated Average Glucose mg/dL 126 ASSESSMENT/PLAN: 1. Type 2 diabetes 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, without long- term current use of insulin, unspecified whether stage 3a or 3b CKD (HCC) - ICD9: 250.40, 585.3, ICD10: E11.22, N18.30 (primary diagnosis) - Controlled -Continue lifestyle control - HEMOGLOBIN A1C 2. Essential hypertension, benign - ICD9: 401.1, ICD10: I10 -Suboptimal, increase losartan to 100 mg daily. Patient will MyChart me in 3 to 4 weeks with updated blood pressure readings. - AMLODIPINE 10 MG TABLET - LOSARTAN 50 MG TABLET - COMPREHENSIVE METABOLIC PANEL 3. Stage 3b chronic kidney disease (HCC) - ICD9: 585.3, ICD10: N18.32 - eGFR: 45 Stable - Counseled on avoiding NSAIDs, adequate hydration - ACEi/ARB prescribed: Yes - LOSARTAN 50 MG TABLET - COMPREHENSIVE METABOLIC PANEL 4. Hyperlipidemia, unspecified hyperlipidemia type - ICD9: 272.4, ICD10: E78.5 - Controlled - Continue current medications - Counseled on healthy diet and regular exercise - LIPID PANEL BASIC 5. Ruptured cyst of kidney - ICD9: 753.10, ICD10: N28.1 -Resolved Rafael Ramirez APRN.CNP RTO in 6 months, sooner if needed. This note was partly generated using [email or web address] voice recognition dictation and may contain some misspelled or inaccurate words missed on review. documented in this encounterBerger Hospital02-21-2025 NoteHNO ID: [id number] Author: RAFAEL RAMIREZ APRN.CNP Service: ? Author Type: Nurse Practitioner Type: Progress Notes Filed: 05/30/2024 13:38 Note Text: Chief Complaint Patient presents with: Follow Up: 6 month ER F/U: [facility] ER fall HPI Renetta Pink is a 83 year old male who presents here today for Chronic Medical Conditions. and ER Follow Up. Patient is here for routine follow-up. He is here with his . Most recently had a fall, braced himself with his right arm, causing elbow to go into side. Caused a ruptured kidney cyst. He went to emergency room for pain control. His pain is resolved. His labs are completed 10 days after the visit and are stable. Hemoglobin A1c is stable at 6.0%. CBC unremarkable. Following with nephrology for stage III kidney disease. His GFR stable. HYPERLIPIDEMIA: Patient is taking medications: Yes. Patient is watching diet: Yes. Patient denies myalgias: Yes. Patient denies gi upset: Yes Following with cardiology. They have increased his antihypertensives. Despite this increase in amlodipine, patient continues to have elevated blood pressures at home. Suddenly less than 140 systolic. Taking medications as prescribed. Without chest pain, shortness of breath, leg swelling. Occasionally will have some dizziness with positional changes but very infrequently. Past medical history, appointments, medications, allergies reviewed. EXAM: BP 148/74 Pulse 61 Resp 16 Wt 85.7 kg (189 lb) SpO2 98% BMI 27.06 kg/m? General Appearance: Well appearing, alert, in no acute distress, well-hydrated, well nourished.. Lungs: Lungs clear to auscultation. No wheezing, rhonchi, rales.. Heart: RRR without murmur, gallop, or rubs. No ectopy. Extremities: No deformities, edema Latest Ref Rn 05/22/2024 WBC 3.70 - 11.00 k/uL 4.61 RBC 4.20 - 6.00 m/uL 4.89 Hemoglobin 13.0 - 17.0 g/dL 13.7 Hematocrit 39.0 - 51.0 % 42.0 MCV 80.0 - 100.0 fL 85.9 MCH 26.0 - 34.0 pg 28.0 MCHC 30.5 - 36.0 g/dL 32.6 RDW-CV 11.5 - 15.0 % 13.6 Platelet Count 150 - 400 k/uL 179 MPV 9.0 - 12.7 fL 9.5 Neut% % 66.6 Abs Neut (ANC) 1.45 - 7.50 k/uL 3.07 Lymph% % 17.8 Abs Lymph 1.00 - 4.00 k/uL 0.82 (L) Roosevelt% % 8.7 Abs Roosevelt <0.87 k/uL 0.40 Eosin% % 6.3 Abs Eosin <0.46 k/uL 0.29 Baso% % 0.4 Abs Baso <0.11 k/uL <0.03 Immature Gran % % 0.2 IMMATURE GRANS (ABS) <0.10 k/uL <0.03 NRBC /100 WBC 0.0 Absolute nRBC <0.01 k/uL <0.01 DTYPE Auto Protein, Total 6.3 - 8.0 g/dL 7.6 Albumin 3.9 - 4.9 g/dL 4.5 Calcium 8.5 - 10.2 mg/dL 10.1 Bilirubin, Total 0.2 - 1.3 mg/dL 1.0 Alkaline Phosphatase 38 - 113 U/L 60 AST 14 - 40 U/L 17 ALT 10 - 54 U/L 21 Glucose 74 - 99 mg/dL 122 (H) BUN 9 - 24 mg/dL 39 (H) Creatinine 0.73 - 1.22 mg/dL 1.51 (H) Sodium 136 - 144 mmol/L 138 Potassium 3.7 - 5.1 mmol/L 4.6 Chloride 98 - 107 mmol/L 107 CO2 22 - 30 mmol/L 23 Anion Gap 8 - 15 mmol/L 8 eGFR >=60 mL/min/1.73m? 45 (L) Cholesterol, Total <200 mg/dL 146 Triglyceride <150 mg/dL 61 HDL Cholesterol >39 mg/dL 50 Non HDL Cholesterol <130 mg/dL 96 Fasting Time hrs 12 VLDL Cholesterol <30 mg/dL 12 TC:HDL Ratio <5.10 2.92 LDL Cholesterol <100 mg/dL 84 LDL:HDL Ratio <2.54 1.68 Creatinine, Ur Random (UCRR) 46.8 - 314.5 mg/dL 85.1 Albumin, Urine Random mg/L 46.0 Albumin/Creat Ratio <30 mg/g 54 (H) Hemoglobin A1C 4.3 - 5.6 % 6.0 (H) Estimated Average Glucose mg/dL 126 ASSESSMENT/PLAN: 1. Type 2 diabetes 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, without long-term current use of insulin, unspecified whether stage 3a or 3b CKD (HCC) - ICD9: 250.40, 585.3, ICD10: E11.22, N18.30 (primary diagnosis) - Controlled -Continue lifestyle control - HEMOGLOBIN A1C 2. Essential hypertension, benign - ICD9: 401.1, ICD10: I10 -Suboptimal, increase losartan to 100 mg daily. Patient will MyChart me in 3 to 4 weeks with updated blood pressure readings. - AMLODIPINE 10 MG TABLET - LOSARTAN 50 MG TABLET - COMPREHENSIVE METABOLIC PANEL 3. Stage 3b chronic kidney disease (HCC) - ICD9: 585.3, ICD10: N18.32 - eGFR: 45 Stable - Counseled on avoiding NSAIDs, adequate hydration - ACEi/ARB prescribed: Yes - LOSARTAN 50 MG TABLET - COMPREHENSIVE METABOLIC PANEL 4. Hyperlipidemia, unspecified hyperlipidemia type - ICD9: 272.4, ICD10: E78.5 - Controlled - Continue current medications - Counseled on healthy diet and regular exercise - LIPID PANEL BASIC 5. Ruptured cyst of kidney - ICD9: 753.10, ICD10: N28.1 -Resolved Rafael Ramirez APRN.INSTALLATION COORDINATOR RTO in 6 months, sooner if needed. This note was partly generated using [email or web address] voice recognition dictation and may contain some misspelled or inaccurate words missed on review.[facility]02-12-2025 Telephone encounter Note* Telephone Encounter - Carol Fishman - 05/21/2024 4:02 PM EST Prescription Refill Information The patient has been identified by name and date of : Yes Caregiver verified no other encounters exist for this prescription request: Yes Caregiver confirmed with patient/requestor that no other refills are due, in the near future, with this provider at this time: Yes The last office visit in the department: 11/23/23 Does the patient have a future office visit with this provider/department: Yes Requested Prescriptions Pending Prescriptions Disp Refills pantoprazole DR (PROTONIX) 40 mg tablet 90 tablet 3 Sig: Take 1 tablet by mouth once daily. Carol Fishman May 21, 2024 4:02 PM [facility]02-12-2025 Miscellaneous Notes* Telephone Encounter - Carol Fishman - 05/21/2024 4:02 PM EST Prescription Refill Information The patient has been identified by name and date of : Yes Caregiver verified no other encounters exist for this prescription request: Yes Caregiver confirmed with patient/requestor that no other refills are due, in the near future, with this provider at this time: Yes The last office visit in the department: 11/23/23 Does the patient have a future office visit with this provider/department: Yes Requested Prescriptions Pending Prescriptions Disp Refills pantoprazole DR (PROTONIX) 40 mg tablet 90 tablet 3 Sig: Take 1 tablet by mouth once daily. Carol Fishman May 21, 2024 4:02 PM documented in this encounterBerger Hospital02-06-2025 Telephone encounter Note * Telephone Encounter - Nel Stokes MA - 05/15/2024 11:52 AM EST FYI for providers. Nel Stokes MA [facility]02-06-2025 Miscellaneous Notes* Telephone Encounter - Nel Stokes MA - 05/15/2024 11:52 AM EST FYI for providers. Nel Stokes MA documented in this encounterBerger Hospital12-03-2024 Telephone encounter Note * Telephone Encounter - Nel Stokes MA - 03/11/2024 4:46 PM EST Pt notified. Nel Stokes MA [facility]12-03-2024 Miscellaneous Notes* Telephone Encounter - Nel Stokes MA - 03/11/2024 4:46 PM EST Pt notified. Nel Stokes MA * Telephone Encounter - Jenae Savage MD - 03/11/2024 4:14 PM EST Please notify patient that is MRI looks OK; the kidney cysts are stable, so nothing further needs done at this time. Jenae Savage MD documented in this encounterBerger Hospital12-03-2024 Telephone encounter Note * Telephone Encounter - Jenae Savage MD - 03/11/2024 4:14 PM EST Please notify patient that is MRI looks OK; the kidney cysts are stable, so nothing further needs done at this time. Jenae Savage MD [facility] Work Phone: 1(516) 467-437111-26-2024 History of Present illness Narrative* Kusum Rodriguez RT(R) - 03/04/2024 1:00 PM EST Radiology Service Progress Note DATE OF SERVICE: March 04, 2024 TIME: 1:11 PM PATIENT IDENTITY VERIFICATION COMPLETED USING TWO (2) STANDARD IDENTIFIERS: Name and Date of confirmed by patient verbally. FALL SCREENING: Has the patient had 2 falls in the last year or 1 fall with injury or currently using an Ambulatory Assistive Device (Walker, Cane, Wheelchair, Crutches, etc.)? No PATIENT GENDER DATA: Male PATIENT RELEVANT IMPLANT DATA REVIEWED: Yes PATIENT PRESENTS WITH AN IMPLANTABLE OR ATTACHED BEAM CARRIER HAULER PUSHER: No ALLERGIES: Reviewed and unchanged CONTRAST ALLERGY: NO. EXAM: MRI - CONTRAST TYPE: GROUP II PERIPHERAL IV DATA: Ambulatory: A peripheral IV was started in the Left antecubital site with a Angio cath: 20 gauge. RADIOLOGY DEPARTMENT: MR; Exam(s) Completed: Body: Renal SIGNATURE: RT Jannet(R) PATIENT NAME: Renetta Pink DATE: March 04, 2024 TIME: 1:11 PM documented in this encounterBerger [facility] NoteHNO ID: [id number] Author: KUSUM RODRIGUEZ RT(R) Service: ? Author Type: Technologist Type: Progress Notes Filed: 03/04/2024 13:12 Note Text: Radiology Service Progress Note DATE OF SERVICE: March 04, 2024 TIME: 1:11 PM PATIENT IDENTITY VERIFICATION COMPLETED USING TWO (2) STANDARD IDENTIFIERS: Name and Date of confirmed by patient verbally. FALL SCREENING: Has the patient had 2 falls in the last year or 1 fall with injury or currently using an Ambulatory Assistive Device (Walker, Cane, Wheelchair, Crutches, etc.)? No PATIENT GENDER DATA: Male PATIENT RELEVANT IMPLANT DATA REVIEWED: Yes PATIENT PRESENTS WITH AN IMPLANTABLE OR ATTACHED BEAM CARRIER HAULER PUSHER: No ALLERGIES: Reviewed and unchanged CONTRAST ALLERGY: NO. EXAM: MRI - CONTRAST TYPE: GROUP II PERIPHERAL IV DATA: Ambulatory: A peripheral IV was started in the Left antecubital site with a Angio cath: 20 gauge. RADIOLOGY DEPARTMENT: MR; Exam(s) Completed: Body: Renal SIGNATURE: Kusum Penny RT Michael(R) PATIENT NAME: Renetta Pink DATE: March 04, 2024 TIME: 1:11 [facility]11-13-2024 NoteHNO ID: [id number] Author: CAROL HDZ LPN Service: ? Author Type: LICENSED NURSE Type: Progress Notes Filed: 02/20/2024 10:46 Note Text: Patient presents for Flu vaccine. Denies any problems at this time. Tolerated injection well. [facility] History of Present illness Narrative* Carol Hdz LPN - 02/20/2024 10:45 AM EST Patient presents for Flu vaccine. Denies any problems at this time. Tolerated injection well. Carol Hdz LPN documented in [facility] encounterBerger [facility]11-12-[facility]24 History of Present illness Narrative* Ivory Badillo RT(R) - 02/19/2024 2:15 PM ESTSummary: X-ray Radiology Service Progress Note PATIENT NAME: Renetta Pink DATE OF SERVICE: February 19, 2024 TIME: 2:30 PM PATIENT IDENTITY VERIFICATION COMPLETED USING TWO (2) IDENTIFIERS: Name and Date of confirmedby patient verbally. FALL SCREENING: Has the patient had 2 falls in the last year or 1 fall with injury or currently using an Ambulatory Assistive Device (Walker, Cane, Wheelchair, Crutches, etc.)? No PATIENT GENDER DATA: Male PATIENT RELEVANT IMPLANT DATA REVIEWED: Not Applicable PATIENT PRESENTS WITH AN IMPLANTABLE OR ATTACHED BEAM CARRIER HAULER PUSHER: No RADIOLOGY DEPARTMENT: General X-ray: Exam(s) Completed: Abdomen X-Ray: Abdomen PERIPHERAL IV DATA: Not applicable SIGNED BY: MOI Hernandez) February 19, 2024 2:30 PM documented in this encounterBerger Hospital11-12-2024 NoteHNO ID: [id number] Author: IVORY BADILLO RT (R) Service: ? Author Type: Technologist Type: Progress Notes Filed: 02/19/2024 14:30 Note Text: Summary: X-ray Radiology Service Progress Note PATIENT NAME: Renetta Pink DATE OF SERVICE: February 19, 2024 TIME: 2:30 PM PATIENT IDENTITY VERIFICATION COMPLETED USING TWO (2) IDENTIFIERS: Name and Date of confirmed by patient verbally. FALL SCREENING: Has the patient had 2 falls in the last year or 1 fall with injury or currently using an Ambulatory Assistive Device (Walker, Cane, Wheelchair, Crutches, etc.)? No PATIENT GENDER DATA: Male PATIENT RELEVANT IMPLANT DATA REVIEWED: Not Applicable PATIENT PRESENTS WITH AN IMPLANTABLE OR ATTACHED BEAM CARRIER HAULER PUSHER: No RADIOLOGY DEPARTMENT: General X-ray: Exam(s) Completed: Abdomen X-Ray: Abdomen PERIPHERAL IV DATA: Not applicable SIGNED BY: Ivory Justino, RT(R) February 19, 2024 2:30 [facility]11-12-2024 NoteHNO ID: [id number] Author: JANUSZ DAVENPORT MD Service: ? Author Type: Physician Type: Progress Notes Filed: 04/06/2024 20:29 Note Text: [facility] UROLOGY ESTABLISHED PATIENT CLINIC NOTE UROL RASHEEDA CHANCE PATIENT INFO: Renetta Pink AGE: [age] year old PCP: Jenae Savage MD IMPRESSION/PLAN: 1. BPH with obstruction/lower urinary tract symptoms [N40.1, N13.8] - ICD9: 600.01, 599.69, ICD10: N40.1, N13.8 (primary diagnosis) -Stable at the time, remain on doxazosin. 2. ED (erectile dysfunction) of organic origin - ICD9: 607.84, ICD10: N52.9 -Refill for tadalafil requested. 3. Left nephrolithiasis - ICD9: 592.0, ICD10: N20.0 -Obtain stat KUB today to evaluate for position of left kidney stone. REASON FOR VISIT: 1 year follow-up HPI: Renetta Pink returns for continuing evaluation and management. Patient continues to be compliant with taking doxazosin daily for LUTS related to BPH. Overall very comfortable with voiding symptoms. See IPSS scores below. Patient states that he presented to his PCP recently with symptoms of left flank pain and underwent CT which showed a 4 mm left renal stone. Patient wishes to know if his stone has passed. Actual image report not available at the time of patient's evaluation. In addition, patient is requesting a refill for tadalafil for ED treatment. INTERNATIONAL PROSTATE SYMPTOM SCORE (I-PSS) 1)INCOMPLETE EMPTYING Over the past month, how often have you had a sensation of not emptying your bladder completely after you finished urinating? SCORE: 0- Not at all 2)FREQUENCY Over the past month, how often have you had to urinate again less than two hours after you finished urinating? SCORE: 1- Less [...] in the morning? SCORE:0 TOTAL I-PSS SCORE: 4 QUALITY OF LIFE DUE TO URINARY SYMPTOMS [...] (POCT) Clear 02/15/2023 Post Void Residual, Ultrasound: 162 cc, adequate emptying OTHER DATA: PSA (ng/mL) Date Value 05/31/2020 4.11 04/10/2017 6.07 03/10/2016 2.29 05/17/2015 2.18 PSA, Percent Free (%) Date Value 05/31/2020 42 05/17/2015 41 09/28/2014 43 05/15/2014 21 No results found for: "ISOPSA" Creatinine Date Value Ref Range Status 12/24/2023 1.55 (H) 0.73 - 1.22 mg/dL Final 11/16/2023 1.61 (H) 0.73 - 1.22 mg/dL Final 06/20/2023 1.36 (H) 0.73 - 1.22 mg/dL Final 05/17/2023 1.55 (H) 0.73 - 1.22 mg/dL Final No results found for: "TESTOST", "TESTFREE" PMHx/PSHx: see above, otherwise unchanged Rx: reviewed and unchanged ROS: see above, otherwise unchanged Labs: None Imaging: None MEDICATIONS: Current Outpatient Medications Medication Sig cetirizine (ZYRTEC) [...] 2 DM - Controlled E11.9 Insulin: No losartan (COZAAR) 50 mg tablet Take 1 [...] TAB Take one(1) tablet daily. (Patient taking d (more content not included)...[facility]11-12-2024 History of Present illness Narrative * Janusz Davenport MD - 02/19/2024 1:38 PM EST Images from the original note were not included. 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 BPH with obstruction/lower urinary tract symptoms [N40.1, N13.8] - ICD9: 600.01, 599.69, ICD10: N40.1, N13.8 (primary diagnosis) -Stable at the time, remain on doxazosin. 2. ED (erectile dysfunction) of organic origin - ICD9: 607.84, ICD10: N52.9 -Refill for tadalafil requested. 3. Left nephrolithiasis - ICD9: 592.0, ICD10: N20.0 -Obtain stat KUB today to evaluate for position of left kidney stone. REASON FOR VISIT: 1 year follow-up HPI: Renetta Pink returns for continuing evaluation and management. Patient continues to be compliant with taking doxazosin daily for LUTS related to BPH. Overall verycomfortable with voiding symptoms. See IPSS scores below. Patient states that he presented to his PCP recently with symptoms of left flank pain and underwentCT which showed a 4 mm left renal stone. Patient wishes to know if his stone has passed. Actual image report not available at the time of patient's evaluation. In addition, patient is requesting a refill for tadalafil for ED treatment. INTERNATIONAL PROSTATE SYMPTOM SCORE (I-PSS) 1)INCOMPLETE EMPTYING Over the past month, how often have you had a sensation of not emptying your bladder completely after you finished urinating? SCORE: 0- Not at all 2)FREQUENCY Over the past month, how often [...] in the morning? SCORE:0 TOTAL I-PSS SCORE: 4 QUALITY OF LIFE DUE TO URINARY SYMPTOMS [...] (POCT) Clear 02/15/2023 Post Void Residual, Ultrasound: 162 cc, adequate emptying OTHER DATA: PSA (ng/mL) Date Value 05/31/2020 4.11 04/10/2017 6.07 03/10/2016 2.29 05/17/2015 2.18 PSA, Percent Free (%) Date Value 05/31/2020 42 05/17/2015 41 09/28/2014 43 05/15/2014 21 No results found for: "ISOPSA" Creatinine Date Value Ref Range Status 12/24/2023 1.55 (H) 0.73 - 1.22 mg/dL Final 11/16/2023 1.61 (H) 0.73 - 1.22 mg/dL Final 06/20/2023 1.36 (H) 0.73 - 1.22 mg/dL Final 05/17/2023 1.55 (H) 0.73 - 1.22 mg/dL Final No results found for: "TESTOST", "TESTFREE" PMHx/PSHx: see above, otherwise unchanged Rx: reviewed and unchanged ROS: see above, otherwise unchanged Labs: None Imaging: None MEDICATIONS: Current Outpatient Medications Medication Sig cetirizine (ZYRTEC) [...] 2 DM - Controlled E11.9 Insulin: No losartan (COZAAR) 50 mg tablet Take 1 [...] differently: Take 1 tablet by mouth oncedaily.) Tadalafil (CIALIS) 20 mg tablet Take 1 tablet by mouth as needed. Take 30-60 minutes prior to sexual activity No current facility-administered medications for this visit. PHYSICAL EXAM: There were no vitals taken for this visit. There is no height or weight on file to calculate BMI. General: Well masculinized, well nourished male Psych: euthymic, NAD Neuro: A&Ox3 Inguinal: No lesions, adenopathy, or hernias exam and ANNI deferred FOLLOW UP: 6 months, or sooner if needed. Visit complexity inherent to evaluation and management associated with medical care services that serve as the continuing focal point for all needed health care services and/or with medical care services that are part of ongoing care related to a patient s single, serious condition or a complex condition. Janusz Davenport M.D, MS Associate Staff [facility] documented in this encounterBerger Hospital11-07-2024 Telephone encounter Note * Telephone Encounter - Nel Stokes MA - 02/14/2024 10:54 AM EST Pt notified. Transferred to [facility] to set up MRI. Nel Stokes MA [facility]11-07-2024 Miscellaneous Notes* Telephone Encounter - Nel Stokes MA - 02/14/2024 10:54 AM EST Pt notified. Transferred to [facility] to set up MRI. Nel Stokes MA * Telephone Encounter - Jenae Savage MD - 02/14/2024 10:[address] showed a new kidney lesion, recommended getting MRI kidney to evaluate. MRI ordered Jenae Savage MD * Telephone Encounter - Nel Stokes MA - 02/14/2024 9:45 AM EST Pt had CT scan done at [facility] that showed incidental finding of lesion on right kidney. Recommended ptget MRI. See report below: View External Imaging - CT Scan [ID [id number]] Nel Stokes MA documented in this encounterBerger Hospital11-07-2024 Telephone encounter Note * Telephone Encounter - Jenae Savage MD - 02/14/2024 10:[address] showed a new kidney lesion, recommended getting MRI kidney to evaluate. MRI ordered Jenae Savage MD [facility]11-07-2024 Telephone encounter Note* Telephone Encounter - Nel Stokes MA - 02/14/2024 9:45 AM EST Pt had CT scan done at [facility] that showed incidental finding of lesion on right kidney. Recommended ptget MRI. See report below: View External Imaging - CT Scan [ID [id number]] Nel Stokes MA [facility]10-28-2024 Telephone encounter Note* Telephone Encounter - Kinza Wasserman MA - 02/04/2024 2:19 PM EDT Do you want pt to schedule a f/u or okay with appt to see Uro as scheduled. Kinza Wasserman MA [facility]10-28-2024 Miscellaneous Notes* Telephone Encounter - Kinza Wasserman MA - 02/04/2024 2:19 PM EDT Do you want pt to schedule a f/u or okay with appt to see Uro as scheduled. Kinza Wasserman MA documented in this encounterBerger Hospital10-07-2024 Telephone encounter Note * Telephone Encounter - Ninfa Bryson LPN - 01/14/2024 1:40 PM EDT Spoke with pts. , informed CT looks good, F/U in 1 year as scheduled. Also sent information to pt. Via my chart. Ninfa Bryson LPN [facility]10-07-2024 Miscellaneous Notes* Telephone Encounter - Ninfa Bryson LPN - 01/14/2024 1:40 PM EDT Spoke with pts. , informed CT looks good, F/U in 1 year as scheduled. Also sent information to pt. Via my chart. Ninfa Bryson LPN * Telephone Encounter - Gary Kelly DO - 01/14/2024 1:23 PM EDT Can let him know the recent CT scan showed his bones still look good. Can follow-up next year as scheduled. documented in this encounterBerger Hospital10-07-2024 Telephone encounter Note * Telephone Encounter - Gary Kelly DO - 01/14/2024 1:23 PM EDT Can let him know the recent CT scan showed his bones still look good. Can follow-up next year as scheduled. [facility] Work Phone: [phone] 704-937509-23-2024 History of Present illness Narrative* Gary Kelly DO - 12/31/2023 2:20 PM EDT HPI: The patient is a 83-year-old gentleman [...] differently: Take 1 tablet by mouth oncedaily.) pantoprazole DR (PROTONIX) 40 mg tablet Take [...] Lymph 1.00 - 4.00 k/uL 0.79 (L) Roosevelt% % 7.6 Abs Roosevelt <0.87 k/uL 0.38 Eosin% % 4.6 Abs [...] Microglobulin <3.1 mg/L 4.0 (H) Latest Ref Rn 12/24/2023 Albumin 3.43 - 5.41 g/dL 4.26 [...] identified. M protein is present. ! Interpretation ([facility]) Atypical restricted bands are present in the IgG and kappa regions. Consistentwith IgG kappa monoclonal gammopathy. Staff Review ([facility]) Reviewed by Dr. Mickie Mclaughlin MD [place] Free, Serum 3.3 - 19.4 mg/L 30.9 [...] M protein is identified on protein electrophoresis. Anatypical region of restricted mobility is identified on protein electrophoresis. ! Interpretation Comment for Protein Electrophoresis The atypical region is relatively poorly definedand may represent an unusual presentation of polyclonal immunoglobulins, but cannot rule out the presence of a low level M protein. If clinically indicated, monoclonal protein analysis and serum freelight chain analysis are suggested to evaluate further for monoclonal gammopathy. Staff Review ([facility]) Reviewed by Dr. Mickie Mclaughlin MD Result ([facility]) No M protein is identified. M protein is present. ! Interpretation ([facility]) Atypical restricted bands are present in the IgG and kappa regions. Consistent with IgG kappa monoclonal gammopathy. Staff Review ([facility]) Reviewed by Dr. Mickie Mclaughlin MD Protein, [...] Quant, 24 Hr Urine -- Staff Review ([facility]) Reviewed by Denia Kramer MD Interpretation Comment for Protein Electrophoresis See separate immunofixation report for characterization of monoclonal gammopathy. Result ([facility]) No M protein is identified. M protein is present. ! Interpretation ([facility]) Atypical restricted bands are present in the IgG and kappa regions. Consistent with IgG kappa monoclonal gammopathy. Staff Review ([facility]) Reviewed by Denia Kramer MD Protein, Timed [...] which included preparing to see the patient, [id number] patient care, completing clinical documentation, obtaining and/or reviewing separately obtained history, performing a medically appropriate examination, counseling and educating the pat ient/family/caregiver, ordering medications, tests, or procedures, communicating with other HCPs (not separately reported), and communicating results to the patient/family/caregiver. Gary Kelly DO documented in this encounterBerger Hospital08-29-2024 Telephone encounter Note * Telephone Encounter - Elizabeth Avila APRN.INSTALLATION COORDINATOR - 12/06/2023 1:58 PM EDT The following approved medication requests have been transmitted electronically. Requested Prescriptions Signed Prescriptions Disp Refills cetirizine (ZYRTEC) 10 mg tablet 90 tablet 3 Sig: Take 1 tablet by mouth once daily. Authorizing Provider: ELIZABETH AVILA APRN.CNP [facility]08-29-2024 Miscellaneous Notes* Telephone Encounter - Elizabeth Avila APRN.CNP - 12/06/2023 1:58 PM EDT The following approved medication requests have been transmitted electronically. Requested Prescriptions Signed Prescriptions Disp Refills cetirizine (ZYRTEC) 10 mg tablet 90 tablet 3 Sig: Take 1 tablet by mouth once daily. Authorizing Provider: ELIZABETH AVILA APRN.CNP documented in this encounterBerger Hospital08-16-2024 Telephone encounter Note * Telephone Encounter - Kinza Wasserman MA - 11/23/2023 2:59 PM EDT See message and advise. Kinza Wasserman MA [facility]08-16-2024 Miscellaneous Notes* Telephone Encounter - Kinza Wasserman MA - 11/23/2023 2:59 PM EDT See message and advise. Kinza Wasserman MA documented in this encounterBerger Hospital08-16-2024 History of Present illness Narrative* Rafael Ramirez APRN.CNP - 11/23/2023 2:00 PM EDT Chief Complaint Patient presents with: Follow Up: [...] with stage 3 chronic kidney disease, without long- term current use of insulin, unspecified whether stage [...] 585.3, ICD10: N18.32 - Continue following with pit crew support worker. - COMPREHENSIVE METABOLIC PANEL - COMPLETE BLOOD [...] needed. This note was partly generated using [email or web address] voice recognition dictation and may contain some misspelled or inaccurate words missed on review. documented in this encounterBerger Hospital08-16-2024 Evaluation note* Diagnosis Type 2 diabetes 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, without long-term current use of insulin, unspecified whether stage 3a or 3b CKD (HCC)- Primary Stage 3b chronic kidney disease (HCC) Hyperlipidemia, unspecified hyperlipidemia type Essential hypertension, benign Gastroesophageal reflux disease without esophagitis Esophageal reflux documented in this encounter [facility]03-22-2024 History of Present illness Narrative* Khan, Ginger - 06/29/2023 1:30 PM EDT Renetta Pink [...] or bladder habits. No bleeding. Follows with pit crew support worker. Appetite is good, energy level is stable. [...] -24-hour urine collection for electrophoresis and immunofixation. "M protein is too faint for accurate quantitation." Plan: Continue to observe - RTC for OV in 6 months with labs Ginger Khan APRN.INSTALLATION COORDINATOR I spent a total of 30 minutes on the date of the service which included preparing to see the patient, [id number] patient care, completing clinical documentation, counseling and [...] evaluation of this patient. documented in this encounterBerger Hospital03-04-2024 History of Present illness Narrative* Ángel Julio, - 06/11/2023 10:40 AM EST [facility]PH[facility]YPERTENSION [facility] SERVICE DATE: 06/11/2023 [...] Complication, Without Long-Term Current Use of Insulin ([facility]) Internal Hemorrhoids Without Mention of Complication Hyperlipidemia, [...] prn SIGNATURE: Ángel Julio DO PATIENT NAME: Renetta Pink DATE: June 11, 2023 TIME: 9:45 AM OFFICE NUMBER: [phone] CC: PRIMARY CARE PHYSICIAN: Jenae Savage MD documented in this encounterBerger Hospital02-16-2024 History of Present illness Narrative* Rafael Ramirez APRN.INSTALLATION COORDINATOR - 05/25/2023 1:00 PM EST Chief Complaint [...] needed. This note was partly generated using [email or web address] voice recognition dictation and may contain some misspelled or inaccurate words missed on review. documented in this encounterBerger Hospital02-16-2024 Evaluation note* Diagnosis Type 2 diabetes 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, without long-term current use of insulin, unspecified whether stage 3a or 3b CKD (HCC)- Primary Stage 3b chronic kidney disease (HCC) Hyperlipidemia, unspecified hyperlipidemia type Essential hypertension, benign Gastroesophageal reflux disease without esophagitis Esophageal reflux documented in this encounter [facility]02-14-2024 Evaluation note* Diagnosis Stage 3 chronic kidney disease, unspecified whether stage 3a or 3b CKD (HCC)- Primary documented in this encounter [facility]10-05-2023 History of Present illness Narrative* Ana Lilia Melendez RDMS - 01/11/2023 1:45 PM EDT Radiology [...] DATA: Not applicable SIGNED BY: Ana Lilia Melendez RDMS RVT January 11, 2023 3:54 PM documented in this encounterBerger Hospital08-29-2023 History of Present illness Narrative* Gary Kelly [...] C (98.4 F), height 178 cm (5' 10.08"), weight 85 kg (187 lb 8 oz), [...] Lymph 1.00 - 4.00 k/uL 0.94 (L) Roosevelt% % 9.0 Abs Roosevelt <0.87 k/uL 0.55 Eosin% % 4.8 Abs [...] which included preparing to see the patient, [id number] patient care, completing clinical documentation, obtaining and/or reviewing separately obtained history, performing a medically appropriate examination, counseling and educating the pat ient/family/caregiver, ordering medications, tests, or procedures, communicating with other HCPs (not separately reported), and communicating results to the patient/family/caregiver. Gary Kelly DO documented in this encounterBerger Hospital08-18-2023 History of Present illness Narrative* Rafael Ramirez APRN.INSTALLATION COORDINATOR - 11/24/2022 2:00 PM EDT Chief Complaint [...] Negative Ketones, Urine Trace, Negative Negative Specific [place], Ur 1.005 - 1.030 1.017 Hemoglobin/Blood,Ur Negative, [...] - TADALAFIL 20 MG TABLET Rafael Ramirez APRN.INSTALLATION COORDINATOR RTO in 6 months, sooner if needed. This note was partly generated using [email or web address] voice recognition dictation and may contain some misspelled or inaccurate words missed on review. documented in this encounterBerger Hospital06-13-2023 Miscellaneous Notes* Telephone Encounter - Rissa White LPN - 09/19/2022 10:58 AM EDT Patient Alan returned call and went over results, notes from Elizabeth Avila GRANITE WORKER with understanding with present also. said no [...] you. Elizabeth Avila APRN.CNP documented in this encounterBerger Hospital06-12-2023 History of Present illness Narrative* Mercy Phelps RT(R) - 09/18/2022 1:20 PM EDT Radiology Service Progress Note PATIENT NAME: Renetta Pnik DATE OF SERVICE: September 18, 2022 TIME: [...] 18, 2022 1:12 PM documented in this encounterBerger Hospital06-01-2023 Instructions* Patient Instructions* Nataly Schmitt - 09/07/2022 9:55 AM EDT Start taking zyrtec daily Increase flonase to two times daily for 10 days Return with worsening symptoms documented in this encounterBerger Hospital06-01-2023 History of Present illness Narrative* Elizabeth [...] APRN.MAGALY This note was partially generated using [email or web address] voice recognition system. Note was reviewed for accuracy. There may be minor misspellings or grammar miscues with [email or web address] voice recognition. documented in this encounterBerger Hospital05-30-2023 Miscellaneous Notes* Telephone Encounter - Nel Stokes Ma - 09/05/2022 8:40 AM EDT Pt scheduled with elizabeth Avila on 09/07/22 at 9:40 AM. Pt notified via ZoomFort[employer]. Nel Stokes Ma documented in this encounterBerger Hospital02-17-2023 History of Present illness Narrative* Rafael [...] <130/80 - COMP METABOLIC PANEL Rafael Ramirez APRN.INSTALLATION COORDINATOR RTO in 6 months, sooner if needed. This note was partly generated using [email or web address] voice recognition dictation and may contain some misspelled or inaccurate words missed on review. documented in this encounterBerger Hospital01-27-2023 History of Present illness Narrative* Ángel Julio DO - 05/05/2022 10:40 AM EST [facility] NEPHROLOGY & HYPERTENSION [facility] SERVICE DATE: 05/05/2022 [...] Complication, Without Long-Term Current Use of Insulin (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) MEDICATIONS: cimetidine (TAGAMET) 400 mg tablet Take [...] Pulse (!) 58 Ht 177.7 cm (5' 9.98") Wt 84.8 kg (187 lb) BMI 26.85 [...] 04, 2022 TIME: 10:16 AM OFFICE NUMBER: [phone] CC: PRIMARY CARE PHYSICIAN: Jenae Savage MD documented in this encounterBerger Hospital01-27-2023 Instructions* Patient Instructions* Ángel Julio DO [...] will be greatly appreciated. documented in this encounterBerger Hospital11-30-2022 History of Present illness Narrative* Doyle [...] IgM 40 - 230 mg/dL 17 (L) [place] [facility], Serum 3.3 - 19.4 mg/L 27.1 [...] ratio is normal. The patient lives in [place]. He will be scheduled to see Dr. Gary Kelly in [place] in 9 months. I put in for lab work to be done prior to that. Doyle Rankin MD documented in this encounterBerger Hospital10-05-2022 History of Present illness Narrative* Janusz Davenport MD - 01/11/2022 11:37 AM EDT Images from the original note were not included. [facility] UROLOGY ESTABLISHED PATIENT [...] Enlarged prostate 3. Moderate post void residual Civil Engineering Specialist: [facility]ENTERArabella Transcribe Date/Time: Jan 03 2022 11:44A Dictated by : CAROL ZACARIAS MD This examination was interpreted and the report reviewed and electronically signed by: CAROL ZACARIAS MD on Jan 03 2022 11:48AM EST Results-Findings * * *Final Report* * * DATE OF EXAM: Jan 02 2022 1:46PM [facility] 1055 - US KIDNEY/BLADDER / PROCEDURE REASON: [...] year. Janusz Davenport M.D, MS Associate Staff [facility] documented in this encounterBerger Hospital10-05-2022 Nurse Note* Dolly Blanco MA - 01/11/2022 11:37 AM EDT PVR = 0 ml documented in this encounterBerger Hospital08-16-2022 Instructions* Patient Instructions* Rafael Ramirez APRN.CNP - 11/22/2021 1:28 PM EDT Apply Kenalog cream to right foot Call Cardiology with recommendations for bilateral foot swelling with Amlodipine Stop Eliquis when you run out Get blood work at end of February for Dr Rankin. See us back in 6 months with labs prior. Rafael Ramirez APRN.CNP documented in this encounterBerger Hospital08-16-2022 History of Present illness Narrative* Rafael [...] any medications. Hgb A1c 6.5%. Follows with [facility]. Had a recent appointment. Doing well [...] Negative Negative Ketones, Urine Negative Negative Specific [place], Ur 1.005 - 1.030 1.010 Hemoglobin/Blood,Ur Negative [...] Consistentwith IgG kappa monoclonal gammopathy. Staff Review ([facility]) Reviewed by Mary Cox MD [place] [facility], Serum 3.3 - 19.4 mg/L 22.9 [...] needed. This note was partly generated using [email or web address] voice recognition dictation and may contain some misspelled or inaccurate words missed on review. documented in this encounterBerger Hospital06-03-2022 Miscellaneous Notes* Telephone Encounter - Maryellen [...] REPLY TO THIS MESSAGE. documented in this encounterBerger Hospital06-01-2022 Miscellaneous Notes* Telephone Encounter - Kinza Wasserman Ma - 09/07/2021 12:25 PM EDT Call to pt , Alan and notified of below. She was made aware that lab will help with directions on collecting. Kinza Wasserman Ma * Telephone Encounter - Jenae Savage MD - 09/07/2021 12:15 PM EDT OK for stool cultures as ordered Jenae Savage MD * Telephone Encounter - Kinza Wasserman Ma - 09/07/2021 10:36 AM EDT See message below. [facility] ER report on PCP desk to review. Kinza Wasserman Ma * Telephone Encounter - Rissa White LPN - 09/07/2021 9:21 AM EDT Patient Alan calling yesterday was in [facility] ER for diarrhea, vomiting. He was diagnosed with viral gastroenteritis. He was given zofran for nausea, told to take pepto bismol for the diarrhea. is asking if should have stool samples done? He was unable to collect one at the ER, but having liquid stools still today, 5 to 6 times already. Pending orders if wanted, needs diagnosis. Please advise documented in this encounterBerger Hospital05-04-2022 History of Present illness Narrative* Janusz Davenport MD - 08/10/2021 1:00 PM EDT Images from the original note were not included. [facility] UROLOGY PATIENT CLINIC [...] the bladder lumen which demonstrates wall trabeculation. Civil Engineering Specialist: [facility] Transcribe Date/Time: Jan 10 2021 3:19P Dictated by : RISSA LOPEZ MD This examination was interpreted and the report reviewed and electronically signed by: RISSA LOPEZ MD on Jan 10 2021 3:26PM EST Results-Findings * * *Final Report* * * DATE OF EXAM: Jan 10 2021 3:08PM [facility] 1055 - US KIDNEY/BLADDER / PROCEDURE REASON: [...] which included preparing to see the patient, [id number] patient care, completing clinical documentation, obtaining and/or reviewing separately obtained history, performing a medically appropriate examination, counseling and educating the p atient/family/caregiver and ordering medications, tests, or procedures. Janusz Davenport MD, MS Associate Staff [facility] [place] documented in this encounterBerger Hospital05-04-2022 Nurse Note* Ashlie Castillo RN - 08/10/2021 12:58 PM EDT PVR 103 ML documented in this encounterBerger Hospital05-04-2022 Miscellaneous Notes* Telephone Encounter - Ángel Julio DO - 08/10/2021 8:41 AM EDT Will refer to hematology for M protein. Unlikely causing renal function decline due to lack of proteinuria. documented in this encounterBerger Hospital05-02-2022 Instructions* Patient Instructions* Ángel Julio DO [...] will be greatly appreciated. documented in this encounterBerger Hospital05-02-2022 History of Present illness Narrative* Ángel Julio DO - 08/08/2021 11:00 AM EDT [facility] NEPHROLOGY & HYPERTENSION [facility] SERVICE DATE: 08/08/2021 SERVICE TIME: 11:31 AM REASON FOR CONSULT: I am asked to see this patient in consultation for my opinion regarding CKD IIIb. My recommendations will be communicated by way of shared medical record, fax, or mail. 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) Secondary hyperparathyroidism (of renal origin) Essential hypertension Unspecified essential hypertension Hyperlipidemia, unspecified hyperlipidemia type documented in this encounter [facility] [place] [facility]* Diagnosis Screening for genitourinary condition- Primary Screening for other and unspecified genitourinary condition Monoclonal (M) protein disease, multiple 'M' protein- Primary Monoclonal paraproteinemia documented in this encounter [facility] [place] [facility]* Diagnosis Benign prostatic hyperplasia without lower urinary tract symptoms- Primary Screening for genitourinary condition Screening for other and unspecified genitourinary condition 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 Erectile dysfunction, unspecified erectile dysfunction type documented in this encounter [facility] [place] noteNo assessment information availableWWyandot Memorial Hospital Work Phone: Evaluation note* Diagnosis Diarrhea, unspecified type- Primary documented in this encounter [facility] [place] [facility]* Diagnosis Diarrhea, unspecified type- Primary documented in this encounter [facility] note* Diagnosis Type 2 diabetes mellitus without complication, without long-term current use of insulin (HCC)- Primary Hyperlipidemia, unspecified hyperlipidemia type Stage 3b chronic kidney disease (HCC) Essential hypertension, benign Acute pulmonary embolism, unspecified pulmonary embolism type, unspecified whether acute cor pulmonale present (HCC) Dermatitis Contact dermatitis and other eczema, due to unspecified cause Bilateral leg edema Edema [facility] Diagnosis Benign prostatic hyperplasia without lower urinary tract symptoms- Primary Screening for genitourinary condition Screening for other and unspecified genitourinary condition 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) Secondary hyperparathyroidism (of renal origin) Primary hypertension Unspecified essential hypertension Hyperlipidemia, unspecified hyperlipidemia type Benign prostatic hyperplasia without lower urinary tract symptoms MGUS (monoclonal gammopathy of unknown significance) Monoclonal paraproteinemia [facility]* Diagnosis Stage 3b chronic kidney disease (HCC)- Primary Type 2 diabetes mellitus without complication, without long-term current use of insulin (HCC) Hyperlipidemia, unspecified hyperlipidemia type Essential hypertension, benign [facility]* Diagnosis Seasonal allergies- Primary Allergic rhinitis, cause unspecified documented in this encounter [facility]* Diagnosis Type 2 diabetes mellitus without complication, without long-term current use of insulin (HCC)- Primary Stage 3b chronic kidney disease (HCC) Hyperlipidemia, unspecified hyperlipidemia type Essential hypertension, benign ED (erectile dysfunction) of organic origin Impotence of organic origin [facility]* Diagnosis MGUS (monoclonal gammopathy of unknown significance)- Primary Monoclonal paraproteinemia [facility]* Diagnosis 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 [facility]* Diagnosis Stage 3b chronic kidney disease (HCC)- Primary Anemia of renal disease 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) Secondary hyperparathyroidism (of renal origin) Primary hypertension Unspecified essential hypertension Hyperlipidemia, unspecified hyperlipidemia type Benign prostatic hyperplasia without lower urinary tract symptoms [facility] Diagnosis MGUS (monoclonal gammopathy of unknown significance)- Primary Monoclonal paraproteinemia [facility]* Diagnosis MGUS (monoclonal gammopathy of unknown significance)- Primary Monoclonal paraproteinemia [facility]* Diagnosis Essential hypertension, benign [facility]* Diagnosis Acute cough [facility]* Diagnosis Monoclonal gammopathy- Primary Monoclonal paraproteinemia [facility]* Diagnosis Monoclonal gammopathy Monoclonal paraproteinemia [facility]* Diagnosis Other specified disorders of kidney and ureter- Primary [facility]* Diagnosis Left nephrolithiasis [facility]* Diagnosis Encounter for immunization Need for other specified prophylactic vaccination against single bacterial disease [facility]* Diagnosis Other specified disorders of kidney and ureter [facility]* Diagnosis BPH with obstruction/lower urinary tract symptoms [N40.1, N13.8]- Primary Hypertrophy of prostate with urinary obstruction and other lower urinary tract symptoms (LUTS) ED (erectile dysfunction) of organic origin Impotence of organic origin Left nephrolithiasis Left nephrolithiasis [facility]* Diagnosis Gastroesophageal reflux disease without esophagitis Esophageal reflux [facility]* Diagnosis Type 2 diabetes 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, without long-term current use of insulin, unspecified whether stage 3a or 3b CKD (HCC)- Primary Essential hypertension, benign Stage 3b chronic kidney disease (HCC) Hyperlipidemia, unspecified hyperlipidemia type Ruptured cyst of kidney Unspecified congenital cystic kidney disease [facility]* Diagnosis Stage 3b chronic kidney disease (HCC)- Primary Anemia of renal disease 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) Secondary hyperparathyroidism (of renal origin) Primary hypertension Unspecified essential hypertension [facility]* Diagnosis BPH with obstruction/lower urinary tract symptoms- Primary Hypertrophy of prostate with urinary obstruction and other lower urinary tract symptoms (LUTS) ED (erectile dysfunction) of organic origin Impotence of organic origin Renal cyst Unspecified congenital cystic kidney disease Left nephrolithiasis [facility] encounter [facility]* Diagnosis Chronic kidney disease, unspecified CKD stage- Primary [facility]* Diagnosis MGUS (monoclonal gammopathy of unknown significance)- Primary Monoclonal paraproteinemia [facility] Additional Instructions [id number] Pepto-Bismol can be helpful for diarrhea and abdominal discomfort. The exact cause of your symptoms not clear, this could be a viral gastroenteritis.[facility] Work Phone: [facility] for [facility] (narrative)* Diagnostic Procedure Only (Routine) - Authorized Specialty Diagnoses / Procedures Referred By Contac t Referred To Contact US IMAGING Diagnoses Congenital multiple renal cysts Procedures US KIDNEY/BLADDER US RETROPERITONEAL REAL TIME W/IMAGE COMPLETE Janusz Davenport MD [address] [place] [address] Us Imaging Referral ID Status Reason Start Date Expiration Date Visits Requested Visits Authorized [id number] Authorized Auto-Generat ed Referral 01/09/2022 09/09/2022 1 1 [facility] for referral (narrative)* Diagnostic Procedure Only (Routine) - Authorized Specialty Diagnoses / Procedures Referred By Contac t Referred To Contact US IMAGING Diagnoses Congenital multiple renal cysts Procedures US KIDNEY/BLADDER US RETROPERITONEAL REAL TIME W/IMAGE Janusz Bo MD [address] [place] [address] Us Imaging Referral ID Status Reason Start Date Expiration Date Visits Requested Visits Authorized [id number] Authorized Auto-Generat ed Referral 01/11/2023 02/10/2023 1 1 [facility] for referral (narrative)* Diagnostic Procedure Only (Routine) - Closed Specialty Diagnoses / Procedures Referred By Contac t Referred To Contact US IMAGING Diagnoses Congenital multiple renal cysts Procedures US KIDNEY/BLADDER US RETROPERITONEAL REAL TIME W/IMAGE COMPLETE Janusz Davenport MD [address] [id number] Us Imaging [facility] Referral ID Status Reason Start Date Expiration Date V isits Requested Visits Authorized [id number] Closed Auto-Generate d Referral 01/11/2023 02/10/2023 1 1 [facility] for referral (narrative)* Diagnostic Procedure Only (Urgent) - Closed Specialty Diagnoses / Procedures Referred By Contac t Referred To Contact XR IMAGING Diagnoses Left nephrolithiasis Procedures XR ABDOMEN 2V ROUTINE SUPINE W UPRIGHT/DECUB/CTL RADIOLOGIC EXAM ABDOMEN 2 VIEWS Janusz Davenport MD [address] [phone] Xr Imaging [facility] Referral ID Status Reason Start Date Expiration Date V isits Requested Visits Authorized [id number] Closed Auto-Generate d Referral 02/19/2024 03/20/2025 1 1 [facility] for referral (narrative)* Diagnostic Procedure Only (Urgent) - Closed Specialty Diagnoses / Procedures Referred By Contac t Referred To Contact XR IMAGING Diagnoses Left nephrolithiasis Procedures XR ABDOMEN 2V ROUTINE SUPINE W UPRIGHT/DECUB/CTL RADIOLOGIC EXAM ABDOMEN 2 VIEWS Janusz Davenport MD [address] [phone] Xr Imaging [facility] Referral ID Status Reason Start Date Expiration Date V isits Requested Visits Authorized [id number] Closed Auto-Generate d Referral 02/19/2024 03/20/2025 1 1 [facility] for visit Narrative* Diagnostic Procedure Only (Urgent) - Closed Specialty Diagnoses / Procedures Referred By Contac t Referred To Contact XR IMAGING Diagnoses Left nephrolithiasis Procedures XR ABDOMEN 2V ROUTINE SUPINE W UPRIGHT/DECUB/CTL RADIOLOGIC EXAM ABDOMEN 2 VIEWS Janusz Davenport MD [address] [place] [address] Xr Imaging [place] [address] Referral ID Status Reason Start Date Expiration Date V isits Requested Visits Authorized [id number] Closed Auto-Generate d Referral 02/19/2024 03/20/2025 1 1 [facility] Summary Purpose Family History No Family History Records Found Relationship Condition Age at Onset Recorded Date/T subhash mother Diabetes mellitus Unknown Cerebrovascular accident (CVA) Unknown father Diabetes mellitus Unknown Cardiac disease Unknown Advance Directives No Advanced Directives Records Found Advance Directive Response Recorded Date/ Time Name of Medical Power of C Wpf Developer alan aguiar May 13, 2021 9:02am Living Will Yes September 06, 2021 1 0:11pm Power of C Wpf Developer Yes September 06, 2021 10:11pm Advance Directive Response Recorded Date/ Time Living Will Yes September 06, 2021 1 0:11pm Power of C Wpf Developer Yes September 06, 2021 10:11pm Reason for Referral Specialty Diagnoses / Procedures Referred By Sakina freed Referred To Contact Diagnoses Monoclonal (M) protein disease, multiple 'M' protein Procedures CONSULT TO HEMATOLOGY/ONCOLOGY OFFICE/OUTPATIENT [facility] 60-74 MINUTES Ángel Julio DO [facility] [place] [id number] Referral ID Status Reason Start Date Expiration Date Visits Requested Visits Authorized [id number] Authorized PCP Requested Referral 08/10/2021 08/10/2022 1 1 Specialty Diagnoses / Procedures Referred By Sakina t Referred To Contact CT IMAGING Diagnoses Monoclonal gammopathy Procedures CT WHOLE BODY SKULL TO KNEE WO IVCON UNLISTED COMPUTED TOMOGRAPHY PROCEDURE CT HEART NO CONTRAST QUANT EVAL CORONRY CALCIUM Gary Kelly, DO [address] [place] [address] Ct Imaging [place] [address] Referral ID Status Reason Start Date Expiration Date Visits Requested Visits Authorized [id number] Authorized Auto-Generat ed Referral 12/31/2023 01/29/2025 1 1 Referral ID Status Reason Start Date Expiration Date V isits Requested Visits Authorized [id number] Closed Auto-Generate d Referral 12/31/2023 01/29/2025 1 1 Specialty Diagnoses / Procedures Referred By Contac t Referred To Contact MR IMAGING Diagnoses Other specified disorders of kidney and ureter Procedures MRI KIDNEY WO/W IVCON MRI ABDOMEN W/O & W/CONTRAST MATERIAL Jenae Savage MD [address] [place] [address] [place] [address] Referral ID Status Reason Start Date Expiration Date Visits Requested Visits Authorized [id number] Authorized Auto-Generat ed Referral 02/14/2024 03/15/2025 1 1 Chief Complaint and Reason for Visit Chief Complaint abd pain ABD PAIN Chief Complaint 1 Y FU EORDER Reason for Visit Coronary artery calc ification seen on CAT scan Essential (primary) hypertension Hyperlipidemia Additional Source Comments (unrecognized sect ion and content) No Status Records FoundNo Status Records FoundNo Status Records FoundNo Status Records FoundNo Status Records FoundNo Status Records Found INFORMATION SOURCE (unrecogn ized section and content) DATE CREATED AUTHOR 10/02/2017 [facility] DATE CREATED AUTHOR AUTHOR'S ORGANIZ ATION 06/27/2018 [facility] DATE CREATED AUTHOR AUTHOR'S ORGANIZ ATION 06/27/2018 [facility] DATE CREATED AUTHOR AUTHOR'S ORGANIZ ATION 02/12/2025 [facility] DATE CREATED AUTHOR AUTHOR'S ORGANIZ ATION 02/14/2025 [facility] DATE CREATED AUTHOR AUTHOR'S ORGANIZ ATION 02/17/2025 [facility] Ce nter Source Comments (unrecognize d section and content) In the event this informatio n is protected by the Federal Confidentiality of Alcohol and Drug Abuse Patient Records regulations: The Federal rules restrict any use of the information to criminally investigate or prosecute any alcohol or drug abuse patient.[facility] HospitalIn the event this information is protected by the Federal Confidentiality of Alcohol and Drug Abuse Patient Records regulations: The Federal rules restrict any use of the information to criminally investigate or prosecute any alcohol or drug abuse patient.Ber[facility] HospitalIn the event this information is protected by the Federal Confidentiality of Alcohol and Drug Abuse Patient Records regulations: The Federal rules restrict any use of the information to criminally investigate or prosecute any alcohol or drug abuse patient.Ber[facility] HospitalIn the event this information is protected by the Federal Confidentiality of Alcohol and Drug Abuse Patient Records regulations: The Federal rules restrict any use of the information to criminally investigate or prosecute any alcohol or drug abuse patient.[facility] HospitalIn the event this information is protected by the Federal Confidentiality of Alcohol and Drug Abuse Patient Records regulations: The Federal rules restrict any use of the information to criminally investigate or prosecute any alcohol or drug abuse patient.Ber[facility] HospitalIn the event this information is protected by the Federal Confidentiality of Alcohol and Drug Abuse Patient Records regulations: The Federal rules restrict any use of the information to criminally investigate or prosecute any alcohol or drug abuse patient.[facility] HospitalIn the event this information is protected by the Federal Confidentiality of Alcohol and Drug Abuse Patient Records regulations: The Federal rules restrict any use of the information to criminally investigate or prosecute any alcohol or drug abuse patient.Ber[facility] HospitalIn the event this information is protected by the Federal Confidentiality of Alcohol and Drug Abuse Patient Records regulations: The Federal rules restrict any use of the information to criminally investigate or prosecute any alcohol or drug abuse patient.Ber[facility] HospitalIn the event this information is protected by the Federal Confidentiality of Alcohol and Drug Abuse Patient Records regulations: The Federal rules restrict any use of the information to criminally investigate or prosecute any alcohol or drug abuse patient.[facility] HospitalIn the event this information is protected by the Federal Confidentiality of Alcohol and Drug Abuse Patient Records regulations: The Federal rules restrict any use of the information to criminally investigate or prosecute any alcohol or drug abuse patient.[facility] HospitalIn the event this information is protected by the Federal Confidentiality of Alcohol and Drug Abuse Patient Records regulations: The Federal rules restrict any use of the information to criminally investigate or prosecute any alcohol or drug abuse patient.[facility] HospitalIn the event this information is protected by the Federal Confidentiality of Alcohol and Drug Abuse Patient Records regulations: The Federal rules restrict any use of the information to criminally investigate or prosecute any alcohol or drug abuse patient.[facility] HospitalIn the event this information is protected by the Federal Confidentiality of Alcohol and Drug Abuse Patient Records regulations: The Federal rules restrict any use of the information to criminally investigate or prosecute any alcohol or drug abuse patient.[facility] HospitalIn the event this information is protected by the Federal Confidentiality of Alcohol and Drug Abuse Patient Records regulations: The Federal rules restrict any use of the information to criminally investigate or prosecute any alcohol or drug abuse patient.[facility] HospitalIn the event this information is protected by the Federal Confidentiality of Alcohol and Drug Abuse Patient Records regulations: The Federal rules restrict any use of the information to criminally investigate or prosecute any alcohol or drug abuse patient.[facility] HospitalIn the event this information is protected by the Federal Confidentiality of Alcohol and Drug Abuse Patient Records regulations: The Federal rules restrict any use of the information to criminally investigate or prosecute any alcohol or drug abuse patient.[facility] HospitalIn the event this information is protected by the Federal Confidentiality of Alcohol and Drug Abuse Patient Records regulations: The Federal rules restrict any use of the information to criminally investigate or prosecute any alcohol or drug abuse patient.[facility] HospitalIn the event this information is protected by the Federal Confidentiality of Alcohol and Drug Abuse Patient Records regulations: The Federal rules restrict any use of the information to criminally investigate or prosecute any alcohol or drug abuse patient.[facility] HospitalIn the event this information is protected by the Federal Confidentiality of Alcohol and Drug Abuse Patient Records regulations: The Federal rules restrict any use of the information to criminally investigate or prosecute any alcohol or drug abuse patient.[facility] HospitalIn the event this information is protected by the Federal Confidentiality of Alcohol and Drug Abuse Patient Records regulations: The Federal rules restrict any use of the information to criminally investigate or prosecute any alcohol or drug abuse patient.[facility] HospitalIn the event this information is protected by the Federal Confidentiality of Alcohol and Drug Abuse Patient Records regulations: The Federal rules restrict any use of the information to criminally investigate or prosecute any alcohol or drug abuse patient.[facility] HospitalIn the event this information is protected by the Federal Confidentiality of Alcohol and Drug Abuse Patient Records regulations: The Federal rules restrict any use of the information to criminally investigate or prosecute any alcohol or drug abuse patient.[facility] HospitalIn the event this information is protected by the Federal Confidentiality of Alcohol and Drug Abuse Patient Records regulations: The Federal rules restrict any use of the information to criminally investigate or prosecute any alcohol or drug abuse patient.[facility] HospitalIn the event this information is protected by the Federal Confidentiality of Alcohol and Drug Abuse Patient Records regulations: The Federal rules restrict any use of the information to criminally investigate or prosecute any alcohol or drug abuse patient.[facility] HospitalIn the event this information is protected by the Federal Confidentiality of Alcohol and Drug Abuse Patient Records regulations: The Federal rules restrict any use of the information to criminally investigate or prosecute any alcohol or drug abuse patient.[facility] the event this information is protected by the Federal Confidentiality of Alcohol and Drug Abuse Patient Records regulations: The Federal rules restrict any use of the information to criminally investigate or prosecute any alcohol or drug abuse patient.[facility] HospitalIn the event this information is protected by the Federal Confidentiality of Alcohol and Drug Abuse Patient Records regulations: The Federal rules restrict any use of the information to criminally investigate or prosecute any alcohol or drug abuse patient.[facility] HospitalIn the event this information is protected by the Federal Confidentiality of Alcohol and Drug Abuse Patient Records regulations: The Federal rules restrict any use of the information to criminally investigate or prosecute any alcohol or drug abuse patient.[facility] ClinicIn the event this information is protected by the Federal Confidentiality of Alcohol and Drug Abuse Patient Records regulations: The Federal rules restrict any use of the information to criminally investigate or prosecute any alcohol or drug abuse patient.[facility] HospitalIn the event this information is protected by the Federal Confidentiality of Alcohol and Drug Abuse Patient Records regulations: The Federal rules restrict any use of the information to criminally investigate or prosecute any alcohol or drug abuse patient.[facility] HospitalIn the event this information is protected by the Federal Confidentiality of Alcohol and Drug Abuse Patient Records regulations: The Federal rules restrict any use of the information to criminally investigate or prosecute any alcohol or drug abuse patient.[facility] HospitalIn the event this information is protected by the Federal Confidentiality of Alcohol and Drug Abuse Patient Records regulations: The Federal rules restrict any use of the information to criminally investigate or prosecute any alcohol or drug abuse patient.[facility] HospitalIn the event this information is protected by the Federal Confidentiality of Alcohol and Drug Abuse Patient Records regulations: The Federal rules restrict any use of the information to criminally investigate or prosecute any alcohol or drug abuse patient.[facility] HospitalIn the event this information is protected by the Federal Confidentiality of Alcohol and Drug Abuse Patient Records regulations: The Federal rules restrict any use of the information to criminally investigate or prosecute any alcohol or drug abuse patient.[facility] HospitalIn the event this information is protected by the Federal Confidentiality of Alcohol and Drug Abuse Patient Records regulations: The Federal rules restrict any use of the information to criminally investigate or prosecute any alcohol or drug abuse patient.[facility] HospitalIn the event this information is protected by the Federal Confidentiality of Alcohol and Drug Abuse Patient Records regulations: The Federal rules restrict any use of the information to criminally investigate or prosecute any alcohol or drug abuse patient.[facility] HospitalIn the event this information is protected by the Federal Confidentiality of Alcohol and Drug Abuse Patient Records regulations: The Federal rules restrict any use of the information to criminally investigate or prosecute any alcohol or drug abuse patient.[facility] HospitalIn the event this information is protected by the Federal Confidentiality of Alcohol and Drug Abuse Patient Records regulations: The Federal rules restrict any use of the information to criminally investigate or prosecute any alcohol or drug abuse patient.[facility] HospitalIn the event this information is protected by the Federal Confidentiality of Alcohol and Drug Abuse Patient Records regulations: The Federal rules restrict any use of the information to criminally investigate or prosecute any alcohol or drug abuse patient.[facility] HospitalIn the event this information is protected by the Federal Confidentiality of Alcohol and Drug Abuse Patient Records regulations: The Federal rules restrict any use of the information to criminally investigate or prosecute any alcohol or drug abuse patient.[facility] HospitalIn the event this information is protected by the Federal Confidentiality of Alcohol and Drug Abuse Patient Records regulations: The Federal rules restrict any use of the information to criminally investigate or prosecute any alcohol or drug abuse patient.[facility] HospitalIn the event this information is protected by the Federal Confidentiality of Alcohol and Drug Abuse Patient Records regulations: The Federal rules restrict any use of the information to criminally investigate or prosecute any alcohol or drug abuse patient.[facility] HospitalIn the event this information is protected by the Federal Confidentiality of Alcohol and Drug Abuse Patient Records regulations: The Federal rules restrict any use of the information to criminally investigate or prosecute any alcohol or drug abuse patient.[facility] HospitalIn the event this information is protected by the Federal Confidentiality of Alcohol and Drug Abuse Patient Records regulations: The Federal rules restrict any use of the information to criminally investigate or prosecute any alcohol or drug abuse patient.[facility] HospitalIn the event this information is protected by the Federal Confidentiality of Alcohol and Drug Abuse Patient Records regulations: The Federal rules restrict any use of the information to criminally investigate or prosecute any alcohol or drug abuse patient.[facility] HospitalIn the event this information is protected by the Federal Confidentiality of Alcohol and Drug Abuse Patient Records regulations: The Federal rules restrict any use of the information to criminally investigate or prosecute any alcohol or drug abuse patient.[facility] HospitalIn the event this information is protected by the Federal Confidentiality of Alcohol and Drug Abuse Patient Records regulations: The Federal rules restrict any use of the information to criminally investigate or prosecute any alcohol or drug abuse patient.[facility] HospitalIn the event this information is protected by the Federal Confidentiality of Alcohol and Drug Abuse Patient Records regulations: The Federal rules restrict any use of the information to criminally investigate or prosecute any alcohol or drug abuse patient.[facility] HospitalIn the event this information is protected by the Federal Confidentiality of Alcohol and Drug Abuse Patient Records regulations: The Federal rules restrict any use of the information to criminally investigate or prosecute any alcohol or drug abuse patient.[facility] Reason for Visit (unrecogniz ed section and content) Specialty Diagnoses / Procedures Referred By Sakina freed Referred To Contact Nephrology Diagnoses Stage 3b chronic kidney disease (HCC) Renal cyst Procedures CONSULT TO NEPHROLOGY OFFICE/OUTPATIENT NEW HIGH MDM 60-74 MINUTES Rafael Ramirez, HENRI.INSTALLATION COORDINATOR [address] [place] [address] Referral ID Status Reason Start Date Expiration Date V isits Requested Visits Authorized [id number] Closed PCP Requested Referral 05/27/2021 05/27/2022 1 [...] US Specialty Diagnoses / Procedures Referred By Sakina t Referred To Contact US IMAGING Diagnoses Congenital multiple renal cysts Procedures US KIDNEY/BLADDER US RETROPERITONEAL REAL TIME W/IMAGE COMPLETE Janusz Davenport MD [address] [place] [address] [place] [address] Referral ID Status Reason Start Date Expiration Date V isits Requested Visits Authorized [id number] Closed Auto-Generate d Referral 01/11/2023 02/10/2023 1 [...] CORONRY CALCIUM Gary Kelly, [address] [place] [address] [place] [address] Referral ID Status Reason Start Date Expiration Date V isits Requested Visits Authorized [id number] Closed Auto-Generate d Referral 12/31/2023 01/29/2025 1 1 Reason Comments Results Reason Comments incidental finding on CT Reason Comments Imm/Inj Specialty Diagnoses / Procedures Referred By Contac t Referred To Contact MR IMAGING Diagnoses Other specified disorders of kidney and ureter Procedures MRI KIDNEY WO/W IVCON MRI ABDOMEN W/O & W/CONTRAST MATERIAL Jenae Savage MD [address] [place] [address] [place] [address] Referral ID Status Reason Start Date Expiration Date V isits Requested Visits Authorized [id number] Closed Auto-Generate d Referral 02/14/2024 03/15/2025 1 1 Reason Comments Benign Prostatic Hypertrophy Reason Onset Date Comments Refill Request 05/21/2024 Reason Comments Follow Up 6 month ER F/U [facility] ER fall Reason Comments Establish Care Reason Comments Follow Up Pt here for follow u p and pvr Benign Prostatic Hypertrophy Care Teams (unrecognized sec tion and content) Nurse Receptionist Relationship Specialty Start Date End Date Jenae Savage MD [address], [place] [id number] PCP - General Family Practice 12/04/16 Ralph Garcia [address] [place], [place] [id number] Specialty Network Systems Engineer Cardiology 06/25/18 Juan Manuel Alvarado MD [address] [place] [address] Specialty Network Systems Engineer Cardiology 06/26/18 Nurse Receptionist Relationship Specialty Start Date End Date Jenae Savage MD [address] [place] [address] PCP - General Family Practice 12/04/16 Radha, Ralph S [address] [place] [address] Specialty Network Systems Engineer Cardiology 06/25/18 Juan Manuel Alvarado MD [address] [place] [address] Specialty Network Systems Engineer Cardiology 06/26/18 Nurse Receptionist Relationship Specialty Start Date End Date Jenae Savage MD [address] [place] [address] PCP - General Family Practice 12/04/16 Radha, Bascom S [address] [place] [address] Specialty Network Systems Engineer Cardiology 06/25/18 Juan Manuel Alvarado MD [address] [place] [address] Specialty Network Systems Engineer Cardiology 06/26/18 Nurse Receptionist Relationship Specialty Start Date End Date Jenae Savage MD [address] [place] [address] PCP - General Family Practice 12/04/16 Radha, Bascom S [address] [place] [address] Specialty Network Systems Engineer Cardiology 06/25/18 Juan Manuel Alvarado MD [address] [place] [address] Specialty Network Systems Engineer Cardiology 06/26/18 Nurse Receptionist Relationship Specialty Start Date End Date Jenae Savage MD [address] [place] [address] PCP - General Family Practice 12/04/16 Radha, Ralph S [address] [place] [address] Specialty Network Systems Engineer Cardiology 06/25/18 Juan Manuel Alvarado MD [address] [place] [address] Specialty Network Systems Engineer Cardiology 06/26/18 Nurse Receptionist Relationship Specialty Start Date End Date Jenae Savage MD [address] [place] [address] PCP - General Family Practice 12/04/16 Radha, Ralph S [address] [place] [address] Specialty Network Systems Engineer Cardiology 06/25/18 Juan Manuel Alvarado MD [address] [place] [address], [place] [address] Specialty Network Systems Engineer Cardiology 06/26/18 Nurse Receptionist Relationship Specialty Start Date End Date Jenae Savage MD [address] [place] [address] PCP - General Family Practice 12/04/16 Radha, Ralph S [address] [place] [address] Specialty Network Systems Engineer Cardiology 06/25/18 Juan Manuel Alvarado MD [address] [place] [address] Specialty Network Systems Engineer Cardiology 06/26/18 Nurse Receptionist Relationship Specialty Start Date End Date Jenae Savage MD [address] [place] [address] PCP - General Family Medicine 12/04/16 Radha, Ralph S [address] [place] [address] Specialty Network Systems Engineer Cardiology 06/25/18 Juan Manuel Alvarado MD [address] [place] [address] Specialty Network Systems Engineer Cardiology 06/26/18 Nurse Receptionist Relationship Specialty Start Date End Date Jenae [place] MD [address] [place] [address] PCP - General Family Medicine 12/04/16 Radha, Bascom S [address] [place] [address] Specialty Network Systems Engineer Cardiology 06/25/18 Juan Manuel Alvarado MD [address] [place] [address] Specialty Network Systems Engineer Cardiology 06/26/18 Nurse Receptionist Relationship Specialty Start Date End Date Jenae Savage MD [address] [place] [address] PCP - General Family Medicine 12/04/16 Radha, Ralph S [address] [place] [address] Specialty Network Systems Engineer Cardiology 06/25/18 Juan Manuel Alvarado MD [address] [place] [address] Specialty Network Systems Engineer Cardiology 06/26/18 Nurse Receptionist Relationship Specialty Start Date End Date Jenae Savage MD [address] [place] [address] PCP - General Family Medicine 12/04/16 Radha, Ralph S [address] [place] [address] Specialty Network Systems Engineer Cardiology 06/25/18 Juan Manuel Alvarado MD [address] [place] [address] Specialty Network Systems Engineer Cardiology 06/26/18 Nurse Receptionist Relationship Specialty Start Date End Date Jenae [place] MD [address] [place] [address] PCP - General Family Medicine 12/04/16 Radha, Ralph S [address] [place] [address] Specialty Network Systems Engineer Cardiology 06/25/18 Juan Manuel Alvarado MD [address] [place] [address] Specialty Network Systems Engineer Cardiology 06/26/18 Nurse Receptionist Relationship Specialty Start Date End Date Jenae Savage MD [address] [place] [address] PCP - General Family Medicine 12/04/16 Radha, Ralph S [address] [place] [address] Specialty Network Systems Engineer Cardiology 06/25/18 Juan Manuel Alvarado MD [address] [place] [address] Specialty Network Systems Engineer Cardiology 06/26/18 Nurse Receptionist Relationship Specialty Start Date End Date Jenae Savage MD [address] [place] [address] PCP - General Family Medicine 12/04/16 Radha, Bascom S [address] [place] [address] Specialty Network Systems Engineer Cardiology 06/25/18 Juan Manuel Alvarado MD [address] [place] [address] Specialty Network Systems Engineer Cardiology 06/26/18 Nurse Receptionist Relationship Specialty Start Date End Date Jenae Savage MD [address] [place] [address] PCP - General Family Medicine 12/04/16 Radha, Ralph S [address] [place] [address] Specialty Network Systems Engineer Cardiology 06/25/18 Juan Manuel Alvarado MD [address] [place] [address] Specialty Network Systems Engineer Cardiology 06/26/18 Nurse Receptionist Relationship Specialty Start Date End Date Jenae [place] MD [address] [place] [address] PCP - General Family Medicine 12/04/16 Radha, Ralph S [address] [place] [address] Specialty Network Systems Engineer Cardiology 06/25/18 Juan Manuel Alvarado MD [address] [place] [address] Specialty Network Systems Engineer Cardiology 06/26/18 Nurse Receptionist Relationship Specialty Start Date End Date Jenae Savage MD [address] [place] [address] PCP - General Family Medicine 12/04/16 Radha, Bascom S [address] [place] [address] Specialty Network Systems Engineer Cardiology 06/25/18 Juan Manuel Alvarado MD [address] [place] [address] Specialty Network Systems Engineer Cardiology 06/26/18 Nurse Receptionist Relationship Specialty Start Date End Date Jenae [place] MD [address] [place] [address] PCP - General Family Medicine 12/04/16 Ralph Garcia [address] [place] [address] Specialty Network Systems Engineer Cardiology 06/25/18 Juan Manuel Alvarado MD [address] [place] [address] Specialty Network Systems Engineer Cardiology 06/26/18 Nurse Receptionist Relationship Specialty Start Date End Date Jenae [place] MD [address] [place] [address] PCP - General Family Medicine 12/04/16 Ralph Garcia MD [address] [place] [address] Specialty Network Systems Engineer Cardiology 06/25/18 Juan Manuel Alvarado MD [address] [place] [address] Specialty Network Systems Engineer Cardiology 06/26/18 Nurse Receptionist Relationship Specialty Start Date End Date Jenae Savage MD [address] [place] [address] PCP - General Family Medicine 12/04/16 Ralph Garcia MD [address] [address] Specialty Network Systems Engineer Cardiology 06/25/18 Juan Manuel Alvarado MD [address] [address] Specialty Network Systems Engineer Cardiology 06/26/18 Nurse Receptionist Relationship Specialty Start Date End Date Jenae [place] MD [address] [place] [address] PCP - General Family Medicine 12/04/16 Ralph Garcia MD [address] [address] Specialty Network Systems Engineer Cardiology 06/25/18 Juan Manuel Alvarado MD [address] [address] Specialty Network Systems Engineer Cardiology 06/26/18 Nurse Receptionist Relationship Specialty Start Date End Date Jenae Savage MD [address] [place] [address] PCP - General Family Medicine 12/04/16 Ralph Garcia MD [address] [facility] [address] [address] Specialty Network Systems Engineer Cardiology 06/25/18 Juan Manuel Alvarado MD [address] [address] Specialty Network Systems Engineer Cardiology 06/26/18 Nurse Receptionist Relationship Specialty Start Date End Date Jenae Savage MD [address] [place] [address] PCP - General Family Medicine 12/04/16 Ralph Garcia MD [address] [place] [address] Specialty Network Systems Engineer Cardiology 06/25/18 Juan Manuel Alvarado MD [address] [place] [address] Specialty Network Systems Engineer Cardiology 06/26/18 Nurse Receptionist Relationship Specialty Start Date End Date Jenae Savage MD [address] [place] [address] PCP - General Family Medicine 12/04/16 Ralph Garcia MD [address] [place] [address] Specialty Network Systems Engineer Cardiology 06/25/18 Juan Manuel Alvarado MD [address] [place] [address] (Fax) Specialty Network Systems Engineer Cardiology 06/26/18 Nurse Receptionist Relationship Specialty Start Date End Date Jenae Savage MD [address] [place] [address] PCP - General Family Medicine 12/04/16 Ralph Garcia MD [address] [place] [address] Specialty Network Systems Engineer Cardiology 06/25/18 Juan Manuel Alvarado MD [address] [place] [address] Specialty Network Systems Engineer Cardiology 06/26/18 Nurse Receptionist Relationship Specialty Start Date End Date Jenae [place] MD [address] [place] [address] PCP - General Family Medicine 12/04/16 Ralph Garcia MD [address] [place] [address] Specialty Network Systems Engineer Cardiology 06/25/18 Juan Manuel Alvarado MD [address] [place] [address] Specialty Network Systems Engineer Cardiology 06/26/18 Nurse Receptionist Relationship Specialty Start Date End Date Jenae Savage MD [address] [place] [address] PCP - General Family Medicine 12/04/16 Ralph Garcia MD [address] [place] [address] Specialty Network Systems Engineer Cardiology 06/25/18 Juan Manuel Alvarado MD [address] [place] [address] Specialty Network Systems Engineer Cardiology 06/26/18 Nurse Receptionist Relationship Specialty Start Date End Date Jenae Savage MD [address] [place] [address] PCP - General Family Medicine 12/04/16 Ralph Garcia MD [address] [place] [address] Specialty Network Systems Engineer Cardiology 06/25/18 Juan Manule Alvarado MD [address] [place] [address] Specialty Network Systems Engineer Cardiology 06/26/18 Janusz Davenport MD [address] [place] [address] Urology 12/31/23 Ángel Julio DO [address] [place] [address] Nephrology 12/31/23 Nurse Receptionist Relationship Specialty Start Date End Date Jenae Savage MD [address] [place] [address] PCP - General Family Medicine 12/04/16 Ralph Garcia MD [address] [address] Specialty Network Systems Engineer Cardiology 06/25/18 Juan Manuel Alvarado MD [address] [place] [address] Specialty Network Systems Engineer Cardiology 06/26/18 Janusz Davenport MD [address] [place] [address] Urology 12/31/23 Ángel Julio DO [address] [place] [address] Nephrology 12/31/23 Nurse Receptionist Relationship Specialty Start Date End Date Jenae Savage MD [address] [place] [address] PCP - General Family Medicine 12/04/16 Ralph Garcia MD [address] [facility] [address] [place] [address] Specialty Network Systems Engineer Cardiology 06/25/18 Juan Manuel Alvarado MD [address] [place] [phone] (Fax) Specialty Network Systems Engineer Cardiology 06/26/18 Janusz Davenport MD [address] [place], [place] [phone] Urology 12/31/23 Ángel Julio DO [address] [place], [place] [phone] Nephrology 12/31/23 Nurse Receptionist Relationship Specialty Start Date End Date Jenae Savage MD [address] [place] [address] PCP - General Family Medicine 12/04/16 Ralph Garcia MD [address] [address] Specialty Network Systems Engineer Cardiology 06/25/18 Juan Manuel Alvarado MD [address] [place] [address] (Fax) Specialty Network Systems Engineer Cardiology 06/26/18 Janusz Davenport MD [address] [place] [place] [address] Urology 12/31/23 Ángel Julio DO [address] [place] [address] Nephrology 12/31/23 Nurse Receptionist Relationship Specialty Start Date End Date Jenae Savage MD [address] [place] [address] PCP - General Family Medicine 12/04/16 Ralph Garcia MD [address] [address] Specialty Network Systems Engineer Cardiology 06/25/18 Juan Manuel Alvarado MD [address] [place] [phone] Specialty Network Systems Engineer Cardiology 06/26/18 Janusz Davenport MD [address] [place] [address] Urology 12/31/23 Ángel Julio DO [address] [place] [address] Nephrology 12/31/23 Nurse Receptionist Relationship Specialty Start Date End Date Jenae Savage MD [address] [place] [address] PCP - General Family Medicine 12/04/16 Ralph Garcia MD [address] [address] Specialty Network Systems Engineer Cardiology 06/25/18 Juan Manuel Alvarado MD [address] [place] [phone] (Fax) Specialty Network Systems Engineer Cardiology 06/26/18 Janusz Davenport MD [address] [place], [place] [id number] Urology 12/31/23 Ángel Julio DO [address] [place], [place] [phone] Nephrology 12/31/23 Nurse Receptionist Relationship Specialty Start Date End Date Jenae Savage MD [address] [place], [place] [id number] PCP - General Family Medicine 12/04/16 Ralph Garcia MD [address] [address] Specialty Network Systems Engineer Cardiology 06/25/18 Juan Manuel Alvarado MD [address] [phone] Specialty Network Systems Engineer Cardiology 06/26/18 Janusz Davenport MD [address] [place], [place] [phone] Urology 12/31/23 Ángel Julio DO [address] [place], [place] [phone] Nephrology 12/31/23 Nurse Receptionist Relationship Specialty Start Date End Date Jenae Savage MD [address] [place] [address] PCP - General Family Medicine 12/04/16 Ralph Garcia MD [address] [place] [address] [place] [address] Specialty Network Systems Engineer Cardiology 06/25/18 Juan Manuel Alvarado MD [address] [place] [address] Specialty Network Systems Engineer Cardiology 06/26/18 Janusz Davenport MD [address] [place], [place] [phone] Urology 12/31/23 Ángel Julio DO [address] [place], [place] [phone] Nephrology 12/31/23 Nurse Receptionist Relationship Specialty Start Date End Date Jenae Savage MD [address] [place] [address] PCP - General Family Medicine 12/04/16 Ralph Garcia MD [address] [address] Specialty Network Systems Engineer Cardiology 06/25/18 Juan Manuel Alvarado MD [address] [place] [address] [place] [phone] Specialty Network Systems Engineer Cardiology 06/26/18 Janusz Davenport MD [address] [place] [place] [address] Urology 12/31/23 Ángel Julio DO [address] [place] [address] Nephrology 12/31/23 Nurse Receptionist Relationship Specialty Start Date End Date Jenae Savage MD [address] [place], [place] [address]86[address] PCP - General Family Medicine 12/04/16 Ralph Garcia MD [address] [address] Specialty Network Systems Engineer Cardiology 06/25/18 Juan Manuel Alvarado MD [address] [phone] Specialty Network Systems Engineer Cardiology 06/26/18 Janusz Davenport MD [address] [place] [address] Urology 12/31/23 Ángel Julio DO [address] [place], [place] [phone] Nephrology 12/31/23 Elizabeth Avila APRN.INSTALLATION COORDINATOR [address] [place] [address] Leasing Agent Family Medicine 03/16/24 Rafael Ramirez APRN.INSTALLATION COORDINATOR [address] [place] [address] Leasing Agent Family Medicine 03/25/24 Nurse Receptionist Relationship Specialty Start Date End Date Jenae Savage MD [address] [place] [address] PCP - General Family Medicine 12/04/16 Ralph Garcia MD [address] [address] Specialty Network Systems Engineer Cardiology 06/25/18 Juan Manuel Alvarado MD [address] [place] [address] [place] [phone] Specialty Network Systems Engineer Cardiology 06/26/18 Janusz [address] [facility] [address] [facility] [place] [place] [phone] Urology 12/31/23 Ángel Julio DO [address] [place], [place] [phone] Nephrology 12/31/23 Elizabeth Avila APRN.INSTALLATION COORDINATOR [address] [place] [address] Leasing Agent Family Medicine 03/16/24 Rafael Ramirez APRN.INSTALLATION COORDINATOR [address] [place] [address] Leasing Agent Family Medicine 03/25/24 Nurse Receptionist Relationship Specialty Start Date End Date Jenae Savage MD [address] [place] [address] PCP - General Family Medicine 12/04/16 Ralph Garcia MD [address] [address] Specialty Network Systems Engineer Cardiology 06/25/18 Juan Manuel Alvarado MD [address] [place] [phone] Specialty Network Systems Engineer Cardiology 06/26/18 Janusz Davenport MD [address] [place] [place], [place] [phone] Urology 12/31/23 Ángel Julio DO [address] [place] [address] Nephrology 12/31/23 Elizabeth Avila APRN.INSTALLATION COORDINATOR [address] [place], [place] [phone] Leasing Agent Family [facility] 03/16/24 Rafael Ramirez APRN.INSTALLATION COORDINATOR [address] [place] [address] [facility] [place] 03/25/24 Nurse Receptionist Relationship Specialty Start Date End Date Jenae Savage MD [address] [place], [place] [phone] PCP - General Family Medicine 12/04/16 Ralph Garcia MD [address] [address] Specialty Network Systems Engineer Cardiology 06/25/18 Juan Manuel Alvarado MD [address] [phone] Specialty Network Systems Engineer Cardiology 06/26/18 Janusz Davenport MD [address] [place] [address] Urology 12/31/23 Ángel Julio DO [address] [place] [address] Nephrology 12/31/23 Elizabeth Avila APRN.INSTALLATION COORDINATOR [address] [place] [address] Leasing Agent Family Medicine 03/16/24 Rafael Ramirez APRN.INSTALLATION COORDINATOR [address] [place] [address] Leasing Agent Family [facility] 03/25/24 Nurse Receptionist Relationship Specialty Start Date End Date Jenae Savage MD [address] [place], [place] [id number] PCP - General Family Medicine 12/04/16 Ralph Garcia MD [address] [address] Specialty Network Systems Engineer Cardiology 06/25/18 Juan Manuel Alvarado MD [address] [phone] Specialty Network Systems Engineer Cardiology 06/26/18 Janusz Davenport MD [address] [facility] [place] [address] Urology 12/31/23 Ángel Julio DO [address] [place], [place] [phone] Nephrology 12/31/23 Elizabeth Avila APRN.INSTALLATION COORDINATOR [address] [place], [place] [phone] Leasing Agent Family [facility] 03/16/24 08/20/24 Rafael Ramirez APRN.INSTALLATION COORDINATOR [address] [place] [address] Leasing Agent [facility] 03/25/24 Nurse Receptionist Relationship Specialty Start Date End Date Jenae Savage MD [address] [place], [place] [address]381 PCP - General Family Medicine 12/04/16 Ralph Garcia MD [address] [phone] Specialty Network Systems Engineer Cardiology 06/25/18 Juan Manuel Alvarado MD [address] [facility] [address] [place] [address] Specialty Network Systems Engineer Cardiology 06/26/18 Janusz Davenport MD [address] [place] [address] Urology 12/31/23 Ángel Julio DO [address] [place] [address] Nephrology 12/31/23 Rafael Ramirez APRN.INSTALLATION COORDINATOR [address] [place] [address] [facility] 03/25/24 Nurse Receptionist Relationship Specialty Start Date End Date Jenae Savage MD [address] [place] [address] PCP - General Family Medicine 12/04/16 Ralph Garcia MD [address] [facility] [address] [place] [address] Specialty Network Systems Engineer Cardiology 06/25/18 Juan Manuel Alvarado MD [address] [place] [phone] (Fax) Specialty Network Systems Engineer Cardiology 06/26/18 Janusz Davenport MD [address] [place], [place] 3[address] Urology 12/31/23 Ángel Julio DO [address] [place] [address] Nephrology 12/31/23 Rafael Ramirez APRN.INSTALLATION COORDINATOR [address] [place] [address] Leasing Agent Family Medicine 03/25/24 Nurse Receptionist Relationship Specialty Start Date End Date Jenae Savage MD [address] [place] [address] PCP - General Family Medicine 12/04/16 Ralph Garcia MD [address] [facility] [address] [place] [address] Specialty Network Systems Engineer Cardiology 06/25/18 Juan Manuel Alvarado MD [address] [place] [phone] Specialty Network Systems Engineer Cardiology 06/26/18 Janusz Davenport MD [address] [place] [address] Urology 12/31/23 Ángel Julio DO [address] [place] [address] Nephrology 12/31/23 Rafael Ramirez APRN.INSTALLATION COORDINATOR [address] [place], [place] [phone] [facility] 03/25/24 Nurse Receptionist Relationship Specialty Start Date End Date Jenae Savage MD [address] [place], [place] [phone] PCP - General Family Medicine 12/04/16 Ralph Garcia MD [address] [phone] Specialty Network Systems Engineer Cardiology 06/25/18 Juan Manuel Alvarado MD [address] [facility] [address] [place] [address] Specialty Network Systems Engineer Cardiology 06/26/18 Janusz Davenport MD [address] [place] [address] Urology 12/31/23 Ángel Julio DO [address] [place] [address] Nephrology 12/31/23 Rafael Ramirez APRN.INSTALLATION COORDINATOR [address] [place], [place] [phone] [facility] 03/25/24 Goals (unrecognized section and content) Goals may be documented in a n alternate sectionGoals may be documented in an alternate section FOR RECORDS PERTAINING TO PATIENTS WHO ARE [...] BE BASED ON THE PRIMARY CLINICAL RECORDS. [facility]. provides no warranty or guarantee of the accuracy or completeness of information in this document.
[2025-02-18 22:43] VITALS: BP 153/66; PULSE 61; RESP 14; O2SAT 97
--- NOTE | 2025-02-19 00:33 | EX.ED.GENINJ ---
HPI History of Present Illness Chief Complaint: Laceration Narrative Narrative: Patient was seen and examined after presenting to ED for injury to the palm of his left hand and right by his thumb he was doing something with a drill when it cut through he is not on anticoagulation just takes a baby aspirin no known bleeding disorders. Unknown last tetanus. [facility] Medical History Cyst of kidney, acquired Pulmonary embolism Essential (primary) hypertension Contact dermatitis First degree AV block Accelerated junctional rhythm Hyperlipidemia Syncope and collapse (05/2018) Bronchitis Sinusitis Diabetes Hx of fever Home Medications Medication Instructions Recorded Last Taken Type zbsbffio-fj-fukdl 300 mcg-K 60 1 tab PO DAILY vitamin 04/11/17 05/21/18 History mcg-lycop 600 mcg-lutein 300 mcg tablet (Centrum Silver Men) tadalafil 20 mg tablet 20 mg PO DAILY PRN Erectile 02/26/19 Unknown History Dysfunction cholecalciferol (vitamin D3) 50 50 mcg PO DAILY 11/02/21 Unknown History mcg (2,000 unit) capsule aspirin 81 mg tablet,delayed 81 mg PO DAILY #90 tabs 03/22/22 Unknown Rx release (Adult Aspirin Regimen) cetirizine 10 mg tablet 10 mg PO DAILY PRN allergy symptoms 01/24/23 Unknown History pantoprazole 40 mg tablet,delayed 40 mg PO DAILY 01/24/23 Unknown History release losartan 50 mg tablet 50 mg PO BID #90 tabs 06/17/24 Unknown Rx doxazosin 4 mg tablet 4 mg PO QHS #90 tabs 01/23/25 Unknown Rx amlodipine 10 mg tablet 10 mg PO DAILY #90 tabs 01/26/25 Unknown Rx simvastatin 20 mg tablet 20 mg PO QDAY #90 tabs 02/11/25 Unknown Rx Allergy/AdvReac Type Severity Reaction Status Date / Time lisinopril AdvReac Intermediate Dry Verified 02/18/25 15:48 persistent cough Family History Mother Diabetes CVA (cerebral vascular accident) Father Diabetes Heart disease Surgical History Hx of cholecystectomy Social History Smoking Status: Never smoker alcohol intake: never ROS ROS ED ROS Narrative Pertinent Positives: Left hand laceration Pertinent Negatives: Numbness tingling inability move fingers The remainder of review of systems negative unless otherwise stated in the HPI above. Systems reviewed including constitutional, psychiatric, cardiovascular, respiratory, integument, HENT, gastrointestinal. EXAM Physical Exam Narrative Exam Narrative: Patient is afebrile hemodynamically stable does not appear toxic or in distress, cephalic and atraumatic he does have an L-shaped but with a regular edges laceration to the thenar eminence of his left hand on the palmar surface that is approximately 5 cm in total length bleeding is controlled intact MSPs otherwise no tendon involvement Const Vital Signs: 02/18/25 15:48 02/18/25 22:43 Temperature 97.1 F L Temperature Source Oral Pulse Rate 65 61 Respiratory Rate 16 14 Blood Pressure 144/76 H 153/66 H Blood Pressure Mean 98 95 Pulse Ox 99 97 Oxygen Delivery Method Room Air MDM MDM MDM Narrative Medical decision making narrative: Nursing notes, triage notes, available previous documentation, and vital signs were reviewed. Any discrepancies noted were addressed. Differential Diagnoses: Very low suspicion for an underlying fracture does not seem to have tendon involvement Interventions: Tetanus Procedure: Laceration Repair Confirmed Correct: Patient, procedure, side, site Consent: Patient, Verbal Description Length: 5 cm Location: Thenar eminence left hand Shape: Jagged L-shaped Depth: Superficial Anesthesia: 5 mL Preparation: Sterile field Irrigation: Copious, pressure, 100 mL Skin Closure: 7 superficial sutures 4-0 Non-Absorbable Technique: Simple interrupted Complexity: Simple Post-procedure Examination: Normal circulation, motor, sensation. Bleeding Controlled. Procedure Complications: None Patient Tolerated: Well Total Time: 10 minutes Imaging Reviewed: Personally reviewed and interpreted by me: I do not see any bony abnormalities on plain films of the left hand Previous Documentation Reviewed: None available or applicable at this time. ED Course: Patient presenting with injury as stated above patient underwent updated tetanus here in the department as well as laceration repair he tolerated the procedure well he was given strict return precautions follow-up recommendations this patient is stable for discharge home. This note was made utilizing voice recognition software. All attempts were made to correct spelling or other errors prior to note completion. However, due to the fast-paced nature of emergency medicine, some errors may still be present. Radiography Diagnostic Testing: Clinical Impression(s) from Imaging Studies Hand X-Ray 02/18/25 18:00 IMPRESSION: No acute fracture or dislocation. Reading Location: [facility] Discharge Plan Triage Chief Complaint: Laceration ED Provider: Ralph Colbert Dx/Rx/DC Orders Clinical Impression: Laceration of hand Instructions: ED Laceration, All Closures Prescriptions: No Action hv-[id number]-[id number]-[id number]-[id number] [Centrum Silver Men] 300-600-300 mcg tablet 1 tab PO DAILY tadalafil 20 mg tablet 20 mg PO DAILY PRN (Reason: Erectile Dysfunction) cholecalciferol (vitamin D3) 50 mcg (2,000 unit) capsule 50 mcg PO DAILY pantoprazole 40 mg tablet,delayed release (DR/EC) 40 mg PO DAILY cetirizine 10 mg tablet 10 mg PO DAILY PRN (Reason: allergy symptoms) simvastatin 20 mg tablet 20 mg PO QDAY Qty: 90 3RF aspirin [Adult Aspirin Regimen] 81 mg tablet,delayed release (DR/EC) 81 mg PO DAILY Qty: 90 3RF losartan 50 mg tablet 50 mg PO BID Qty: 90 3RF doxazosin 4 mg tablet 4 mg PO QHS Qty: 90 3RF amlodipine 10 mg tablet 10 mg PO DAILY Qty: 90 3RF Primary Care Provider: Josse Shannon Referrals: Josse Shannon MD [Primary Care Provider, Family Practice] Activity Restrictions/Additional Instructions: Be sure to keep the area clean do not scratch or scrub at it but go ahead and wash with soap and water you can still take a shower I want you to monitor for signs of fever redness streaking around the area or pus coming from the site if this occurs you need to return to emergency department. You have 7 total sutures or stitches you can have these removed in about 7 days Print Language: Lebanese Disposition Disposition: Home, Self Care
[2025-02-19] MEDS: Lidocaine 1% (20 ml mdv) 20 ML Vial INFILT (00:46)
[2025-02-19 00:49] VITALS: BP 159/93; PULSE 60; RESP 18; TEMP 36.7; O2SAT 96
== END 2025-02-19 00:51 | disposition home or self-care (01) ==
PROVIDERS: Emergency Provider Specialist/Technologist Athletic Trainer; PCP Family Medicine; Visit Provider Specialist/Technologist Athletic Trainer
DX: S61.419A Laceration without foreign body of unspecified hand, initial encounter (principal); E11.9 Type 2 diabetes mellitus without complications; E78.5 Hyperlipidemia, unspecified; Z86.711 Personal history of pulmonary embolism; Z79.82 Long term (current) use of aspirin; I10 Essential (primary) hypertension; Z23 Encounter for immunization; W26.8XXA Contact with other sharp object(s), not elsewhere classified, initial encounter
CPT/HCPCS: 12002; 73130; 90471; 90715; 99284